=== PATIENT | male | born 1965 | race Caucasian/White ===

== ENCOUNTER 2016-11-15 10:53 | Observation (INO) | payer OTHER ==
[~2016-11-15] VITALS: Ht 177.8 cm; Wt 95.8 kg
[~2016-11-15 10:53] MED LIST: ASPCH81 PO; CINA0.42 PO; DOCU-94 PO; METO50TA16 PO; MULT-506 PO; SEVE800T7 PO
[2016-11-15] MEDS ORDERED: TPRSR/100 PO (11:00)
[2016-11-15] MEDS ORDERED: ASPIRIN 324 MG CHEW PO STA (11:23)
[2016-11-15] MEDS ORDERED: ASPI81TA28 PO (11:25)
[2016-11-15] MEDS ORDERED: METO50TA16 PO (11:43)
[2016-11-15 11:44] LABS: BASO % 0.4 %; BASO ABS # 0.01 K/uL (0-0.2); COMPLETE YES; EOS % 3.7 %; HEMATOCRIT 32.6 % (42-52); LYMPH % 22.8 %; LYMPH ABS # 0.56 K/uL (1.2-3.4); MEAN CELL VOLUME 85.8 fL (80-100); MEAN CORPUSCULAR HEMOGLOBIN 28.9 pg (25-34); MEAN CORPUSCULAR HGB CONC 33.7 g/dl (32-36); MEAN PLATELET VOLUME 8.8 fL (7.4-10.4); MONO % 10.2 %; NEUT % 62.9 %; PLATELET COUNT 124 K/uL (130-400); WHITE BLOOD COUNT 2.46 K/uL (4.8-10.8)
[2016-11-15 11:56] LABS: INR 1.1 (0.9-1.1); PARTIAL THROMBOPLASTIN RATIO 1.1; PROTHROMBIN TIME (PATIENT) 11.3 SECONDS (9.0-12.0)
[2016-11-15 12:11] LABS: ALB/GLOB RATIO 0.8 (0.9-2); BUN/CREATININE RATIO 2.4 (10-20); CALCIUM 8.8 mg/dl (8.5-10.1); CKMB/CK RATIO 0.9 (0-3.0); CREATININE 5.1 mg/dl (0.60-1.40); MAGNESIUM 2.2 mg/dl (1.8-2.4); POTASSIUM 3.4 mmol/L (3.5-5.1)
--- NOTE | 2016-11-15 12:13 | DIAGNOSTIC IMAGING REPORT ---
CHEST ONE VIEW PORTABLE CLINICAL HISTORY: Atypical chest pain and headache COMPARISON STUDY: January 06, 2012 FINDINGS: The heart is mildly enlarged. There is no overt failure. There is no focal pulmonary consolidation. There are no pleural effusions.[ IMPRESSION: Mild cardiomegaly. No evidence of focal pulmonary consolidation Electronically signed by: Shahab Ba M.D. 11/15/2016 12:12 PM Dictated Date/Time: 11/15/2016 12:11 PM
--- NOTE | 2016-11-15 12:28 | EMERGENCY ROOM VISIT NOTE ---
History First contact with patient: 11:03 Chief Complaint: CHEST PAIN Stated Complaint: CHEST DISCOMFORT/ HEADACHE Nursing Triage Summary: pt presents via [facility] with c/o headache and chest pain pt states he has had intermittent sharp pains in his chest that started around midnight pt states during his dialysis today, the pain became constant in his chest with a headache pt was given ntg and asa by the dialysis staff states he has had a headache most of the week also c/o recent diarrhea, nasal congestion, and cough History of Present Illness Patient is a 50-year-old white male with past medical history significant for hypertension, 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 Patient reports that he has been experiencing headaches and elevated blood pressure on and off for the last couple of weeks. Changes were made to his metoprolol dosing, but he has not started the new dose yet. He states that he has been feeling poorly all week with some nausea, diarrhea, cough and with exertion. Last night he noted a slight headache and some chest pain. He drove himself to dialysis this morning. Around 9:30, 90 minutes prior to arrival in the ED and with roughly 30 minutes left in his treatment, he developed a slight headache, midsternal chest pressure which then developed into pain that radiated into his left chest , jaw and arm. He states at its worst she would've rated the pain an 8/10. He noted some associated shortness of breath with the pain. He was given 1 nitroglycerin at his dialysis facility and place on oxygen, and his pain improved to a 3/10, which he continues to experience presently. Has never had a cardiac workup before. He denies any lightheadedness or dizziness presently. His weight has been stable. He denies any calf or leg pain or swelling. Review of Systems Review of systems as per HPI. All other systems reviewed were negative. 10 systems reviewed. Past Medical/Surgical History Medical Problems: (1) Chest pain (2) Diab Wendy Wo Compl, Type Ii Or Unspec Type, Not Uncntrld (3) Diverticulitis Colon (W/O Ment Of Hemorrhage) (4) Diverticulosis Colon (W/O Ment Of Hemorrhage) (5) Hematuria (6) HTN (hypertension) (7) Hx-Malig Skin Melanoma (8) Kidney disease (9) Kidney Transplant Failure (10) Left flank pain (11) Renal Dialysis Status (12) UTI (urinary tract infection) Surgical Problems: (1) H/O kidney transplant (2) History of bowel resection Electronic medical records are reviewed and summarized as above/below. See Problem List. Family History Diabetes mellitus FH: diabetes mellitus FH: heart disease Hypertension Kidney disease Social History Smoking Status: Never Smoker Marital Status: Housing Status: lives with significant other Occupation Status: employed Current/Historical Medications Scheduled Aspirin (Aspirin Ec), 81 MG PO DAILY Cinacalcet (Sensipar), 30 MG PO QPM Metoprolol Succinate (Metoprolol Succinate ER), 100 MG PO QPM Metoprolol Tartrate (Lopressor) (Lopressor), 50 MG PO DAILY Multivitamin (Multivitamin), 1 TAB PO QAM Sevelamer Carbonate (Renvela), 4 CAP PO TIDM Scheduled PRN Docusate Sodium (Colace), 100 MG PO BID PRN for Constipation Allergies Coded Allergies: Adhesives (Verified Allergy, Mild, 05/08/16) Aspirin (Verified Adverse Reaction, Mild, NOSE BLEED, 05/08/16) Physical Exam Vital Signs Date Time Temp Pulse Resp B/P Pulse Ox O2 Delivery O2 Flow Rate FiO2 11/15/16 14:26 72 20 177/94 100 Room Air 11/15/16 13:34 64 22 181/100 99 Room Air 11/15/16 13:18 56 11/15/16 12:45 96 Room Air 11/15/16 12:40 56 16 173/105 96 Room Air 11/15/16 11:09 52 11/15/16 11:04 99 Room Air 11/15/16 11:00 36.4 55 16 165/92 99 Room Air 11/15/16 11:00 98 Room Air Physical Exam CONSTITUTIONAL: Patient is a well-appearing 50-year-old white male who was awake and alert and in no apparent distress. Vital signs are stable. EYES: Pupils equal, round, reactive to light and accommodation. EOMs intact without nystagmus. Sclera are anicteric. ENT: Tympanic membranes intact, with normal landmarks. External canals are clear. Oral and nasopharynx are clear. Mucous membranes are moist, no lesions , tongue and gums appear normal. NECK: No bruits auscultated. Supple without lymphadenopathy. No thyromegaly. No meningeal signs. Full active range of motion without discomfort. CARDIOVASCULAR: Regular rate and rhythm, with normal S1 and S2, no murmur or gallop or rub is heard. No carotid bruits auscultated. No JVD. Peripheral pulses easy to palpable. RESPIRATORY: Breath sounds equal and clear to auscultation without wheezes, rales, or rhonchi heard. Full and equal chest expansion without accessory muscle use or retractions. GI: Multiple well-healed surgical scars are noted. Bowel sounds are present. Abdomen is soft, nontender, nondistended. MUSCULOSKELETAL: Full range of motion of extremities x 4 with good strength. No cyanosis, edema, joint tenderness or swelling. No deformity. INTEGUMENTARY: No lesions or rash, normal skin turgor. NEUROLOGICAL: Alert, oriented, and cooperative. Cranial nerves, sensation and strength grossly intact. Pupils round, equal, and react to light, EOMs are full. LYMPH: No lymphadenopathy. Medical Decision & Procedures ER Provider Diagnostic Interpretation: CHEST ONE VIEW PORTABLE CLINICAL HISTORY: Atypical chest pain and headache COMPARISON STUDY: January 06, 2012 FINDINGS: The heart is mildly enlarged. There is no overt failure. There is no focal pulmonary consolidation. There are no pleural effusions. IMPRESSION: Mild cardiomegaly. No evidence of focal pulmonary consolidation Laboratory Results 11/15/16 11:35 Red Blood Count 3.80, Mean Corpuscular Volume 85.8, Mean Corpuscular Hemoglobin 28.9, Mean Corpuscular Hemoglobin Concent 33.7, Mean Platelet Volume 8.8, Neutrophils (%) (Auto) 62.9, Lymphocytes (%) (Auto) 22.8, Monocytes (%) (Auto) 10.2, Eosinophils (%) (Auto) 3.7, Basophils (%) (Auto) 0.4, Neutrophils # (Auto ) 1.55, Lymphocytes # (Auto) 0.56, Monocytes # (Auto) 0.25, Eosinophils # (Auto ) 0.09, Basophils # (Auto) 0.01 11/15/16 11:35 Test 11/15/16 11:35 White Blood Count 2.46 K/uL (4.8-10.8) Red Blood Count 3.80 M/uL (4.7-6.1) Hemoglobin 11.0 g/dL (14.0-18.0) Hematocrit 32.6 % (42-52) Mean Corpuscular Volume 85.8 fL (80-100) Mean Corpuscular Hemoglobin 28.9 pg (25-34) Mean Corpuscular Hemoglobin Concent 33.7 g/dl (32-36) Platelet Count 124 K/uL (130-400) Mean Platelet Volume 8.8 fL (7.4-10.4) Neutrophils (%) (Auto) 62.9 % Lymphocytes (%) (Auto) 22.8 % Monocytes (%) (Auto) 10.2 % Eosinophils (%) (Auto) 3.7 % Basophils (%) (Auto) 0.4 % Neutrophils # (Auto) 1.55 K/uL (1.4-6.5) Lymphocytes # (Auto) 0.56 K/uL (1.2-3.4) Monocytes # (Auto) 0.25 K/uL (0.11-0.59) Eosinophils # (Auto) 0.09 K/uL (0-0.5) Basophils # (Auto) 0.01 K/uL (0-0.2) RDW Standard Deviation 41.4 fL (36.4-46.3) RDW Coefficient of Variation 13.3 % (11.5-14.5) Immature Granulocyte % (Auto) 0.0 % Immature Granulocyte # (Auto) 0.00 K/uL (0.00-0.02) Prothrombin Time 11.3 SECONDS (9.0-12.0) Prothromb Time International Ratio 1.1 (0.9-1.1) Activated Partial Thromboplast Time 28.3 SECONDS (21.0-31.0) Partial Thromboplastin Ratio 1.1 Anion Gap 10.0 mmol/L (3-11) Est Creatinine Clear Calc Drug Dose 20.1 ml/min Estimated GFR () 13.9 Estimated GFR (Non- 12.0 BUN/Creatinine Ratio 2.4 (10-20) Calcium Level 8.8 mg/dl (8.5-10.1) Magnesium Level 2.2 mg/dl (1.8-2.4) Total Bilirubin 0.9 mg/dl (0.2-1) Aspartate Amino Transf (AST/SGOT) 17 U/L (15-37) Alanine Aminotransferase (ALT/SGPT) 8 U/L (12-78) Alkaline Phosphatase 326 U/L (45-117) Total Creatine Kinase 88 U/L (39-308) Creatine Kinase MB 0.8 ng/ml (0.5-3.6) Creatine Kinase MB Ratio 0.9 (0-3.0) Total Protein 7.8 gm/dl (6.4-8.2) Albumin 3.5 gm/dl (3.4-5.0) Globulin 4.3 gm/dl (2.5-4.0) Albumin/Globulin Ratio 0.8 (0.9-2) Medications Administered Medications (Trade) Dose Ordered Sig/Willy Route Start Time Stop Time Status Last Admin Dose Admin Aspirin (Aspirin Chew) 324 mg NOW STAT PO 11/15/16 11:23 11/15/16 11:26 DC 11/15/16 12:02 324 MG Hydralazine HCl (HydrALAZINE INJ) 10 mg Q6H PRN IV. 11/15/16 13:45 12/15/16 13:44 11/15/16 17:21 10 MG Hydralazine HCl (HydrALAZINE INJ) 10 mg NOW STAT IV. 11/15/16 13:40 11/15/16 13:47 DC 11/15/16 14:11 10 MG Acetaminophen (Tylenol Tab) 650 mg Q4H PRN PO 11/15/16 14:45 12/15/16 14:44 11/15/16 17:21 650 MG ECG Indication: chest pain Rate (beats per minute): 52 Rhythm: sinus bradycardia Findings: 1st degree AV block, no acute ischemic change Change: no significant change ED Course The patient was seen and evaluated as above. Old records were reviewed. IV access was obtained, laboratory studies were collected, EKG was performed and the patient was placed on the bobbin winder tender and observed during his emergency department stay. He was given aspirin 324 mg chewable. He declined any additional medication for discomfort. EKG demonstrated a sinus bradycardia at 52 beats per minute with a first-degree AV block. There is no evidence for acute ischemic changes. Chest x-ray demonstrated cardiomegaly, no evidence for failure or consolidation. Laboratory studies noted a white count of 2400, H&H 11 and 32, platelet count 124,000. Anemia appears stable for the patient. Platelet count is slightly lower than prior. Coags are normal. Electrolytes sodium 136, potassium 3.4, chloride 94, carbon dioxide 32, BUN 12 and creatinine 5.1, which patient reports is around his baseline. Magnesium 2.2. He has slight elevation of his alkaline phosphatase at 326, otherwise remaining liver functions are normal. CK and CK-MB are negative 1. [id number] troponin is 0.02. All laboratory and diagnostic imaging studies were reviewed with attending physician, and discussed with the patient. He is comfortable at the present time. He was noted to be slightly hypertensive and bradycardic throughout his stay. He reports that he did not take his metoprolol today as he normally takes this after dialysis. His workup is not indicative of ischemic process at this time, however given his presentation and his comorbidities, it was felt that further care and evaluation in the hospital for chest pain workup was necessary. Patient was [place] [facility] [place] [facility] for further care and management. Medical Decision Differential diagnosis includes acute myocardial infarction, acute coronary syndrome, myocarditis, pericarditis, pericardial effusions /tamponade, pulmonary embolism, pneumonia, pneumothorax, cardiomyopathy, congestive heart failure, anemia, COPD/asthma exacerbation, musculoskeletal, anxiety, costochondritis, among others. Impression Primary Impression: Substernal precordial chest pain Departure Information Referrals Yoav Hayward M.D. (PCP) Patient Instructions My [facility]
--- NOTE | 2016-11-15 12:37 | EMERGENCY ROOM VISIT NOTE ---
ED Visit Note First contact with patient: 11:03 Patient evaluated with physician medical lab assistant. 50-year-old percentage emergency room for chest pain which is presently resolved. EKG reviewed within normal limits. Troponin negative. Case has been discussed with Dr. Leon for admission. Agree with management and plan. Patient has no concerns on my examination at 12:35 PM
[2016-11-15 12:45] VITALS: O2SAT 96; BMI 31.5
[2016-11-15] MEDS ORDERED: HydrALAZINE HCL 20 MG/ML VIAL IV. STA (13:40)
[2016-11-15] MEDS ORDERED: HydrALAZINE HCL 20 MG/ML VIAL IV. PRN (13:45)
[2016-11-15] MEDS ORDERED: ONDANSETRON INJ 2 MG/ML 2 ML VIAL IV PRN (14:45)
[2016-11-15] MEDS ORDERED: DOCUSATE SODIUM 100 MG CAP PO PRN (14:45)
[2016-11-15] MEDS ORDERED: NITROGLYCERIN OINT 2% 1GM PACKET EXT ONE (15:00)
[2016-11-15] MEDS ORDERED: IV FLUIDS COMPLETED PRN (15:00)
--- NOTE | 2016-11-15 15:12 | History and Physical ---
History & Physical Date & Time of Service: Nov 15, 2016 at 14:54 Chief Complaint: Chest Discomfort/ Headache Primary Care Physician: Yoav Hayward M.D. History of Present Illness Source: patient, clinic records, hospital records This patient is a 50-year-old male that presents emergency department with complaints of midsternal chest pain radiating to the left side of his face and jaw that started during dialysis today. The patient has a history of end-stage renal disease, failed renal transplant 2007. He is typically dialyzed Friday, Friday and Friday. The patient completed all but a half-hour of the dialysis when the pain started. He denies any diaphoresis. No shortness of breath at the time. No dizziness. No heart palpitations. The patient denies any history of coronary artery disease. He has had a normal stress test, but that was many years ago. Initial workup in the emergency department shows a negative troponin. EKG shows sinus bradycardia with a first-degree AV block. No acute signs of ischemia. The patient was noted to be hypertensive. He admits that this is been going on for the last few weeks. His dose of metoprolol was recently increased, but he has not yet picked up the prescription. The patient does say that he has not been feeling well all week. He had a few episodes of vomiting and diarrhea a few days back. He is still having diarrhea , however the nausea and vomiting has resolved. He denies any abdominal pain. No sick contacts. No recent travel. He does admit to feeling on and off hot and cold with mild body aches. This is been also going on for approximately 1 week. He has a mild cough, however this is chronic. Apparently, the patient does have a history of chronic diarrhea. Past Medical/Surgical History Medical Problems: (1) Diab Wendy Wo Compl, Type Ii Or Unspec Type, Not Uncntrld Status: Chronic (2) Diverticulitis Colon (W/O Ment Of Hemorrhage) Status: Resolved (3) Diverticulosis Colon (W/O Ment Of Hemorrhage) Status: Chronic (4) Hematuria Status: Resolved (5) HTN (hypertension) Status: Chronic (6) Hx-Malig Skin Melanoma Status: Chronic (7) Kidney disease Status: Chronic (8) Kidney Transplant Failure Status: Chronic (9) Left flank pain Status: Resolved (10) Renal Dialysis Status Status: Chronic (11) UTI (urinary tract infection) Status: Resolved Surgical Problems: (1) H/O kidney transplant Status: Chronic (2) History of bowel resection Status: Resolved Family History Diabetes mellitus FH: diabetes mellitus FH: heart disease Hypertension Kidney disease Father and mother both of heart disease, [place] in their 60s Social History Smoking Status: Never Smoker Alcohol Use: none Marital Status: Housing status: lives with family Occupational Status: employed Immunizations History of Influenza Vaccine: N/A Influenza Vaccine Date: Sep 03, 2006 History of Tetanus Vaccine?: No History of Pneumococcal: Unknown Pneumococcal Date: March 03, 2005 History of Hepatitis B Vaccine: No Hepatitis Immunization Date: March 03, 2006 Multi-Drug Resistant Organisms History of MDRO: No Allergies Coded Allergies: Adhesives (Verified Allergy, Mild, 05/08/16) Aspirin (Verified Adverse Reaction, Mild, NOSE BLEED, 05/08/16) Home Medications Scheduled Aspirin (Aspirin Ec), 81 MG PO DAILY Cinacalcet (Sensipar), 30 MG PO QPM Metoprolol Succinate (Metoprolol Succinate ER), 100 MG PO QPM Metoprolol Tartrate (Lopressor) (Lopressor), 50 MG PO DAILY Multivitamin (Multivitamin), 1 TAB PO QAM Sevelamer Carbonate (Renvela), 4 CAP PO TIDM Scheduled PRN Docusate Sodium (Colace), 100 MG PO BID PRN for Constipation Review of Systems 10 system review performed and negative unless noted in HPI or below Physical Exam Vital Signs Date Time Temp Pulse Resp B/P Pulse Ox O2 Delivery O2 Flow Rate FiO2 11/15/16 14:26 72 20 177/94 100 Room Air 11/15/16 13:34 64 22 181/100 99 Room Air 11/15/16 13:18 56 11/15/16 12:45 96 Room Air 11/15/16 12:40 56 16 173/105 96 Room Air 11/15/16 11:09 52 11/15/16 11:04 99 Room Air 11/15/16 11:00 36.4 55 16 165/92 99 Room Air 11/15/16 11:00 98 Room Air General Appearance: no apparent distress Head: normocephalic Eyes: EOMI Neck: no JVD Respiratory/Chest: lungs clear Cardiovascular: regular rate, rhythm, + pertinent finding (systolic murmur noted) Abdomen/GI: normal bowel sounds, non tender, soft, + pertinent finding (many abdominal scar is noted) Extremities/Musculoskelatal: no calf tenderness, no pedal edema Neurologic/Psych: no motor/sensory deficits, oriented x 3 Skin: warm/dry Diagnostics Laboratory Results Results Past 24 Hours Test 11/15/16 11:23 11/15/16 11:35 11/15/16 11:41 Range/Units Creatine Kinase MB Ratio 0.9 0-3.0 White Blood Count 2.46 4.8-10.8 K/uL Red Blood Count 3.80 4.7-6.1 M/uL Hemoglobin 11.0 14.0-18.0 g/dL Hematocrit 32.6 42-52 % Mean Corpuscular Volume 85.8 80-100 fL Mean Corpuscular Hemoglobin 28.9 25-34 pg Mean Corpuscular Hemoglobin Concent 33.7 32-36 g/dl Platelet Count 124 130-400 K/uL Mean Platelet Volume 8.8 7.4-10.4 fL Neutrophils (%) (Auto) 62.9 % Lymphocytes (%) (Auto) 22.8 % Monocytes (%) (Auto) 10.2 % Eosinophils (%) (Auto) 3.7 % Basophils (%) (Auto) 0.4 % Neutrophils # (Auto) 1.55 1.4-6.5 K/uL Lymphocytes # (Auto) 0.56 1.2-3.4 K/uL Monocytes # (Auto) 0.25 0.11-0.59 K/uL Eosinophils # (Auto) 0.09 0-0.5 K/uL Basophils # (Auto) 0.01 0-0.2 K/uL RDW Standard Deviation 41.4 36.4-46.3 fL RDW Coefficient of Variation 13.3 11.5-14.5 % Immature Granulocyte % (Auto) 0.0 % Immature Granulocyte # (Auto) 0.00 0.00-0.02 K/uL Prothrombin Time 11.3 9.0-12.0 SECONDS Prothromb Time International Ratio 1.1 0.9-1.1 Activated Partial Thromboplast Time 28.3 21.0-31.0 SECONDS Partial Thromboplastin Ratio 1.1 Sodium Level 136 136-145 mmol/L Potassium Level 3.4 3.5-5.1 mmol/L Chloride Level 94 98-107 mmol/L Carbon Dioxide Level 32 21-32 mmol/L Anion Gap 10.0 3-11 mmol/L Blood Urea Nitrogen 12 7-18 mg/dl Creatinine 5.10 0.60-1.40 mg/dl Est Creatinine Clear Calc Drug Dose 20.1 ml/min Estimated GFR () 13.9 Estimated GFR (Non- 12.0 BUN/Creatinine Ratio 2.4 10-20 Random Glucose 75 70-99 mg/dl Calcium Level 8.8 8.5-10.1 mg/dl Magnesium Level 2.2 1.8-2.4 mg/dl Total Bilirubin 0.9 0.2-1 mg/dl Aspartate Amino Transf (AST/SGOT) 17 15-37 U/L Alanine Aminotransferase (ALT/SGPT) 8 12-78 U/L Alkaline Phosphatase 326 45-117 U/L Total Creatine Kinase 88 39-308 U/L Creatine Kinase MB 0.8 0.5-3.6 ng/ml Total Protein 7.8 6.4-8.2 gm/dl Albumin 3.5 3.4-5.0 gm/dl Globulin 4.3 2.5-4.0 gm/dl Albumin/Globulin Ratio 0.8 0.9-2 Bedside Troponin I 0.020 0-0.045 ng/ml Diagnostic Radiology CHEST ONE VIEW PORTABLE CLINICAL HISTORY: Atypical chest pain and headache COMPARISON STUDY: January 06, 2012 FINDINGS: The heart is mildly enlarged. There is no overt failure. There is no focal pulmonary consolidation. There are no pleural effusions.[ IMPRESSION: Mild cardiomegaly. No evidence of focal pulmonary consolidation Electronically signed by: Shahab Ba M.D. EKG Sinus bradycardia with first-degree AV block. Rate 52 bpm. No ischemic changes noted. Repeat EKG at 1446 shows normal sinus rhythm with first-degree AV block. Rate 65 bpm. No ischemic changes noted Impression Assessment and Plan 50-year-old male with a past medical history of end-stage renal disease status post failure of the kidney transplant secondary to noncompliance, diabetes, hypertension. Presented to the ED with chest pain during dialysis. Found to be significantly hypertensive in the emergency department, otherwise workup was fairly unremarkable chest pain -observe in telemetry -follow cardiac enzymes every 8 hr x 2 -daily EKG -EKG with worsening pain -continue ASA -Apply Nitropaste -Check stress echo -Repeat troponin now Hypertensive urgency-BP improved after 1 dose of hydralazine -Continue metoprolol XL 100 mg HS-this is the dose the patient is supposed to be taking according to outpatient pharmacy records -Hydralazine 10 mg IV q 6 hr PRN -BP likely will improve with nitropaste End-stage renal disease-continue with dialysis Friday, Friday, Friday -Since patient pretty much completed his HD today, we will hold off on consulting nephrology -Continue Sensipar 60 mg daily -Continue PhosLo 2001 mg 3 times daily with meals diabetes mellitus-blood sugar stable. -Continue glipizide 2.5 mg daily -follow BSGs AC, HS and with meals -insulin sliding scale -Of note, the patient says that his glucometer broke and he has not been checking his sugars. -check HgbA1C DVT prophylaxis -If the patient is not discharged today or tomorrow, consider anticoagulation -TEDS, SCDs CODE STATUS -LEVEL I FULL CODE PA Physician Supervision Note: I interviewed and examined the patient. Discussed with Tara BRAXTON and agree with findings and plan as documented in the note. Any exceptions or clarifications are listed here: None Pt with hypertensive urgency, chest pain relieved with nitro. Has been having some increased MARTE despite being at or below dry weight for last week or so, completed HD today vitals show markedly htn, bradycardia car is bradycardic, shanika lungs are clear ext are with edema trace asses, Chest pain, maybe cardiac given risk factors. need to control blood pressure may need stress or even consider more aggressive risk stratification diabetic diet and ssi Documented By: Yuniel Gomez Level of Care Telemetry Advanced Directives Existing Living Will: No Existing Power of Nurse Office: No Resuscitation Status FULL RESUSCITATION VTE Prophylaxis VTE Risk Assessment Done? Y/N: Yes Risk Level: Low Given or contraindicated: Alfonzo Stockings, SCD's
[2016-11-15] MEDS ORDERED: DEXTROSE 50% 50 ML SYR IV PRN (15:30)
[2016-11-15] MEDS ORDERED: GLUCAGON FOR INJ 1 MG VIAL SQ PRN (15:30)
[2016-11-15] MEDS ORDERED: GLUCOSE 40% GEL 15 GM TUBE PO PRN (15:30)
[2016-11-15] MEDS ORDERED: GLUCOSE 10 TABS/TUBE PO PRN (15:30)
[2016-11-15] MEDS: INSULIN ASPART 100 UNITS/ML 3 ML PEN SC SCH ×2 (16:00→20:19)
[2016-11-15 17:10] VITALS: BP 205/110; PULSE 60; TEMP 36.4; O2SAT 96
[2016-11-15] MEDS: ACETAMINOPHEN 325 MG TAB PO PRN (17:21)
[2016-11-15] MEDS ORDERED: LORAZEPAM 2 MG/ML 1 ML VIAL IV PRN ×2 (17:30)
[2016-11-15] MEDS ORDERED: LORAZEPAM 0.5 MG TAB PO PRN (17:30)
[2016-11-15] MEDS ORDERED: MoRPHine SULFATE 4 MG/ML 1 ML CARP\\VIAL IV PRN (17:30)
[2016-11-15] MEDS ORDERED: MoRPHine SULFATE 2 MG/ML CARP IV PRN (17:30)
[2016-11-15] MEDS ORDERED: METOPROLOL TARTRATE 1 MG/ML VIAL IV PRN (17:30)
[2016-11-15] MEDS ORDERED: LISINOPRIL 5 MG TAB PO ONE (17:45)
[2016-11-15] MEDS: CALCIUM ACETATE 667MG GELCAP PO SCH (17:50)
[2016-11-15 17:51] VITALS: BP 179/88
[2016-11-15 19:30] VITALS: BP 144/71; PULSE 82; TEMP 36.6; O2SAT 96
[2016-11-15] MEDS: CINACALCET 30 MG TAB PO SCH (20:20)
[2016-11-15] MEDS: CAPTOPRIL 25 MG TAB PO SCH (20:21)
[2016-11-15] MEDS ORDERED: METOPROLOL SUCC 50MG EXT REL TAB PO SCH (21:00)
[2016-11-15 22:00] VITALS: BP 148/80; PULSE 72
[2016-11-15] MEDS: METOPROLOL TARTRATE 25 MG TAB PO SCH (22:00)
[2016-11-15] MEDS ORDERED: METOPROLOL TARTRATE 50 MG TAB PO SCH (22:00)
[2016-11-15 22:51] LABS: CKMB/CK RATIO 1.5 (0-3.0)
[2016-11-15 23:50] VITALS: BP 137/86; PULSE 57; TEMP 36.9; O2SAT 94
[2016-11-16] VITALS (19 sets, daily range): BP systolic 139–165; BP diastolic 80–97; PULSE 51–66; TEMP 36.6–37; O2SAT 94–97
--- NOTE | 2016-11-16 04:32 | NEPHROLOGY CONSULTATION ---
DATE OF CONSULTATION: 11/15/2016 PROBLEM LIST: 1. End-stage renal disease. 2. History of malignancy, midback (pathology unspecified). 3. History of depression. 4. Hypercholesterolemia. 5. Diverticulosis with history of perforation. 6. Hypertension. SUBJECTIVE: Mr. Levy is a 50-year-old white male, well known to me. He was referred down from the [facility] after developing chest pain toward the end of his hemodialysis treatment today. His chest pain has now resolved. Mr. Levy has a history of known chronic renal insufficiency, dating back to about the year 1999 and likely, much further. At the time he was recognized as having chronic renal disease, his renal function was significantly reduced and a renal biopsy was not done, although it was presumed that he had chronic glomerulonephritis. He was hypertensive at the time of diagnosis. His blood pressure was well controlled, but his renal function slowly deteriorated. He developed uremic symptomatology and despite conservative efforts, had to start dialysis in 2004. For the most part, his dialysis was uncomplicated. However, in August of 2005, he developed an episode of abdominal pain and was felt to have acute diverticulitis. He was treated with antibiotics, with improvement. In February of 2007, he once again developed symptoms of diverticulitis. At that time, he was found to have a perforated diverticulum with abscess formation. The abscess was drained here by Dr. Jacob Martinez and a colostomy was done. He did remarkably well after his surgery and his colostomy was taken down in 2006. In 2007, he received a cadaver transplant at the [facility]. He did remarkably well. He was faithful with keeping most of his appointments, at least for the first several years after getting his transplant. However, because of financial issues, he became more lax in followup visits as well as getting laboratory work done. In January of 2016, he presented with symptoms of uremia and volume overload. At that time, he admitted that he was not taking his immunosuppressive medications, predominantly for financial reasons. He was given a course of higher dose steroids and immunosuppressant drugs were resumed. Nevertheless, he never regained renal function and was started again on maintenance dialysis. He has been reasonably stable on maintenance dialysis and is currently dialyzed at the [place] [facility]. For the most part, his dialysis treatments have been uncomplicated, at least until lately. Over the course of the past several months, it has been apparent that he has not been totally compliant with his medication program. Although he said he was taking his medications, the pharmacy that his medications were called into said that he had not picked them up. He was to have been on metoprolol tartrate on a regular basis. He said he was taking the medications, although that was not confirmed by the dialysis staff when they checked with his drugstore. More recently, we felt that it might be easier for him to be on metoprolol succinate than metoprolol tartrate. That prescription was called in, but the patient said that the prescription was not ready and he continued to take his old medications, which we had documented that he, apparently, did not fill. For the past 2 weeks, he has not felt particularly well. According to his , he has been somewhat lethargic and has been sleeping quite a bit. He had no focal neurologic symptoms or complaints. His blood pressure was higher when he reported for dialysis treatments. His said that he was not eating well. Beginning Friday of this week (November 11), he developed gastrointestinal symptoms of nausea, worsening of his appetite, as well as diarrhea. He was not eating much. His dry weight was not changed in the dialysis unit because he did not report the symptoms. He felt that he is somewhat below his dry weight at the current time. Nonetheless, his blood pressure has been elevated with systolic blood pressures as high as 200 and diastolic blood pressures in the range of 100-110. Today, his blood pressure remained elevated and late in his dialysis treatment, he developed chest discomfort. He points to the site of onset of his discomfort more in the mid-epigastrium and said that it radiated substernally to the left side of his neck and left shoulder. He had no associated nausea or vomiting. He denied diaphoresis. He was not experiencing any worsening shortness of breath associated with his symptoms, but his says that he has been dyspneic with exertion at home, particularly when going up or down steps. Nonetheless, he was referred to the Emergency Room from the dialysis unit. There, he appeared to be stable, but his blood pressure was quite high. Admission was advised to rule out an acute myocardial infarction. CURRENT PRESCRIBED MEDICATIONS: Aspirin 81 mg daily, Sensipar 30 mg daily, docusate sodium 100 mg twice a day, metoprolol succinate 100 mg daily (previously metoprolol tartrate 50 mg twice daily), and a multivitamin a day. He also was supposed to be taking Renvela 800 mg, 4 with each meal. ALLERGIES: AADHESIVES AND ASPIRIN. The remainder of his past medical history, family history, social history and review of systems is outlined on his admission note and will not be repeated. However, of note is the fact that he has a strong family history of heart disease with both parents dying in their mid 60s. OBJECTIVE: GENERAL: On physical exam, when seen by me, Mr. Levy was lying quietly in his room. He did not appear to be in any distress. VITAL SIGNS: His blood pressure was 179/88. His pulse was 65 and regular, respiratory rate was 18, his pulse ox 98% on room air. He is afebrile. SKIN: Shows essentially normal skin turgor. He has a right lower quadrant scar from his kidney transplant. He has a left upper arm AV fistula, which is functioning remarkably well. He has a large scar on the mid-back over the lower thoracic and upper lumbar vertebrae from the removal of a cutaneous malignancy years ago. He has other scars on his abdomen from his surgery for diverticular disease, a colostomy and its takedown. There is no rash or infiltrative skin disease. LYMPHATICS: Show no palpable lymphadenopathy. HEAD: Grossly normal. EYES: Normal, although the ocular fundi were not examined today. EARS, NOSE, MOUTH AND THROAT: All unremarkable. His oral mucous membranes appear moist. NECK: Supple. I see no obvious jugular venous distention. There is no carotid bruit and no obvious thyromegaly. CHEST: Clear to auscultation. I hear no wheezes, rales or rhonchi. CARDIAC: Shows a regular rhythm. S1 and S2 are normal. He has a soft systolic murmur at the base radiating toward the neck. Additionally, he has a continuous murmur radiating into his chest from his left upper arm AV fistula. Occluding that fistula decreases that murmur significantly. ABDOMEN: Somewhat obese. It is nontender. There is no organomegaly or mass and bowel sounds are normal. EXTREMITIES: Show no cyanosis, clubbing or edema. He has a left upper arm AV fistula that functions well. NEUROLOGIC: Shows no lateralizing changes. PERTINENT LABORATORY WORK: From today, shows a white count of 2460 with a normal differential. His hemoglobin is 11.0 with a hematocrit of 32.6. His platelet count is 124,000. His prothrombin time is 11.3 with an INR of 1.1. His PTT is 28.3 with a PTTR of 1.1. Clinical chemistries show a sodium of 136 mmol/L, potassium of 3.4 mmol/L, chloride of 94 mmol/L, and CO2 content of 32 mmol/L. The laboratory work was drawn shortly after the completion of his dialysis treatment. His BUN was 12 and his creatinine 5.10. His random blood sugar was 75. His serum calcium is 8.8 mg/dL. His magnesium 2.2 mg/dL. His AST is 17 and his ALT 8. His alkaline phosphatase is 326. His total CK is 88. His CK-MB is 0.8. His total protein is 7.8. His albumin 3.5 and globulins are 4.3. Imaging studies done today include a chest x-ray, which shows cardiomegaly, but no obvious evidence of congestive heart failure. ASSESSMENT: Mr. Levy has a history of end-stage renal disease, presumably secondary to chronic glomerulonephritis. He had a transplanted kidney for about 8 years, but lost it because of noncompliance with his immunosuppressive drugs. He has been back on dialysis since about January of 2016. On dialysis, there is some evidence that he has been poorly compliant with his medications. Recently, he has become increasingly fatigued and apparently, somewhat lethargic at home. He has not been eating well. His blood pressure has been rising. Again, there is evidence of noncompliance with him taking his metoprolol tartrate and subsequent metoprolol succinate because his pharmacist, to whom the prescriptions were called, says that he never picked them up. Nevertheless, for now, his blood pressure is significantly elevated and that may be due to a drop in his dry weight not compensated for with his dialysis treatments. RECOMMENDATIONS: Tomorrow, we will dialyze him and try to reduce his dry weight. I would check a plasma renin, since occasionally, patients with end-stage renal disease, will have significant problems with hypertension associated with marked elevations of plasma renin. That would direct therapy toward the use of angiotensin receptor blockers or ROSEANN inhibitors. Would start him on captopril 25 mg b.i.d. Would prefer to use that as opposed to long-acting ROSEANN inhibitor, in case we need to quickly reverse its effect. Would also keep him on metoprolol tartrate 50 mg b.i.d. We will continue his other regular outpatient medications, as prescribed. Dialysis orders have been written. Dr. Neo Loomis will be rounding for [facility] nephrology tomorrow. He is aware of Mr. Levy being here and will follow him this weekend. We would continue to pursue a routine rule out for coronary disease.
[2016-11-16] MEDS: METOPROLOL TARTRATE 25 MG TAB PO SCH ×3 (05:57→20:59)
[2016-11-16] MEDS ORDERED: SODIUM CHLORIDE 0.9% 1000ML 1,000 ML IV PRN (06:00)
[2016-11-16] MEDS ORDERED: HEPARIN SOD (PORCINE) 1000 UNIT/ML 10 ML VIAL IV SCH ×2 (06:00)
[2016-11-16] MEDS: INSULIN ASPART 100 UNITS/ML 3 ML PEN SC SCH ×4 (07:00→20:59)
[2016-11-16 07:02] LABS: BLOOD UREA NITROGEN 27 mg/dl (7-18); BUN/CREATININE RATIO 3.4 (10-20); CALCIUM 7.6 mg/dl (8.5-10.1); CARBON DIOXIDE 32 mmol/L (21-32); CHLORIDE 94 mmol/L (98-107); CKMB/CK RATIO 1.1 (0-3.0); GLUCOSE 84 mg/dl (70-99); SODIUM 136 mmol/L (136-145)
[2016-11-16] MEDS: ACETAMINOPHEN 325 MG TAB PO PRN (07:16)
[2016-11-16] MEDS: CAPTOPRIL 25 MG TAB PO SCH ×2 (07:17→20:59)
[2016-11-16] MEDS: MULTIVITAMIN TAB PO SCH (07:18)
[2016-11-16] MEDS: ASPIRIN 81 MG ECTAB PO SCH (07:18)
[2016-11-16] MEDS: CALCIUM ACETATE 667MG GELCAP PO SCH ×3 (07:19→16:39)
[2016-11-16] MEDS ORDERED: LISINOPRIL 5 MG TAB PO SCH (09:00)
[2016-11-16] MEDS ORDERED: METOPROLOL TARTRATE 50 MG TAB PO SCH (09:00)
[2016-11-16 09:30] LABS: HEPATITIS B AB POS
[2016-11-16 10:28] LABS: URINE APPEARANCE CLEAR (CLEAR); URINE BILIRUBIN NEG (NEG); URINE COLOR YELLOW; URINE NITRITE NEG (NEG); URINE PH >= 9.0 (4.5-7.5); URINE SPECIFIC GRAVITY 1.005 (1.000-1.030); UROBILINOGEN NEG (NEG)
[2016-11-16 10:32] LABS: MANUAL MICROSCOPIC REQUIRED? NO; REVIEW REQ? NO
[2016-11-16 10:33] LABS: SULFASALICYLIC ACID POS (NEG)
--- NOTE | 2016-11-16 11:11 | Dialysis Progress Note ---
Hemodialysis Note Date of Service Nov 16, 2016. Chief Complaint ESRD on HD Subjective No acute events overnight. Blood pressure improved. Mild headache this morning. Denies shortness of breath. No chest pain. Seen and evaluated during hemodialysis. Unfortunately tap water temperature was too high for a period this morning and machine needed to be reset. Water temperature seems to have adjusted appropriately. Review of Systems A complete review of systems was performed. Pertinent positives are noted above. All other systems are negative. Vital Signs Last 8 Hrs Date Time Temp Pulse Resp B/P Pulse Ox O2 Delivery O2 Flow Rate FiO2 11/16/16 08:00 Room Air 11/16/16 07:18 36.6 60 18 149/81 96 Room Air 11/16/16 04:57 Room Air 11/16/16 04:39 36.9 60 18 145/88 97 Room Air I & O 24-Hour Column 11/16/16 08:00 Intake Total 500 ml Output Total 50 ml Balance 450 ml Last Recorded Weight Weight (Kilograms): 99.100 Physical Exam General Appearance: WD/WN, no apparent distress Head: normocephalic, atraumatic Eyes: normal inspection, sclerae normal ENT: normal ENT inspection, pharynx normal Neck: supple, + JVD Respiratory/Chest: lungs clear, no respiratory distress, no accessory muscle use Cardiovascular: regular rate, rhythm, + systolic murmur Back: normal inspection Abdomen/GI: non tender, soft Extremities/Musculoskelatal: normal inspection, no pedal edema, + pertinent finding (LUE AVF with thrill and bruit) Neurologic/Psych: alert, oriented x 3 Social History Smoking Status: Never smoker Alcohol Use: none Marital Status: Housing Status: lives with family Occupation: employed Laboratory Results Past 24 Hours 11/15/16 11:35 Red Blood Count 3.80, Mean Corpuscular Volume 85.8, Mean Corpuscular Hemoglobin 28.9, Mean Corpuscular Hemoglobin Concent 33.7, Mean Platelet Volume 8.8, Neutrophils (%) (Auto) 62.9, Lymphocytes (%) (Auto) 22.8, Monocytes (%) (Auto) 10.2, Eosinophils (%) (Auto) 3.7, Basophils (%) (Auto) 0.4, Neutrophils # (Auto ) 1.55, Lymphocytes # (Auto) 0.56, Monocytes # (Auto) 0.25, Eosinophils # (Auto ) 0.09, Basophils # (Auto) 0.01 11/15/16 11:35 11/16/16 05:23 Test 11/15/16 11:23 11/15/16 11:35 11/15/16 11:41 11/15/16 14:55 Creatine Kinase MB Ratio (0-3.0) 0.9 (0-3.0) White Blood Count 2.46 K/uL (4.8-10.8) Red Blood Count 3.80 M/uL (4.7-6.1) Hemoglobin 11.0 g/dL (14.0-18.0) Hematocrit 32.6 % (42-52) Mean Corpuscular Volume 85.8 fL (80-100) Mean Corpuscular Hemoglobin 28.9 pg (25-34) Mean Corpuscular Hemoglobin Concent 33.7 g/dl (32-36) Platelet Count 124 K/uL (130-400) Mean Platelet Volume 8.8 fL (7.4-10.4) Neutrophils (%) (Auto) 62.9 % Lymphocytes (%) (Auto) 22.8 % Monocytes (%) (Auto) 10.2 % Eosinophils (%) (Auto) 3.7 % Basophils (%) (Auto) 0.4 % Neutrophils # (Auto) 1.55 K/uL (1.4-6.5) Lymphocytes # (Auto) 0.56 K/uL (1.2-3.4) Monocytes # (Auto) 0.25 K/uL (0.11-0.59) Eosinophils # (Auto) 0.09 K/uL (0-0.5) Basophils # (Auto) 0.01 K/uL (0-0.2) RDW Standard Deviation 41.4 fL (36.4-46.3) RDW Coefficient of Variation 13.3 % (11.5-14.5) Immature Granulocyte % (Auto) 0.0 % Immature Granulocyte # (Auto) 0.00 K/uL (0.00-0.02) Prothrombin Time 11.3 SECONDS (9.0-12.0) Prothromb Time International Ratio 1.1 (0.9-1.1) Activated Partial Thromboplast Time 28.3 SECONDS (21.0-31.0) Partial Thromboplastin Ratio 1.1 Anion Gap 10.0 mmol/L (3-11) Est Creatinine Clear Calc Drug Dose 20.1 ml/min Estimated GFR () 13.9 Estimated GFR (Non- 12.0 BUN/Creatinine Ratio 2.4 (10-20) Calcium Level 8.8 mg/dl (8.5-10.1) Magnesium Level 2.2 mg/dl (1.8-2.4) Total Bilirubin 0.9 mg/dl (0.2-1) Aspartate Amino Transf (AST/SGOT) 17 U/L (15-37) Alanine Aminotransferase (ALT/SGPT) 8 U/L (12-78) Alkaline Phosphatase 326 U/L (45-117) Total Creatine Kinase 88 U/L (39-308) Creatine Kinase MB 0.8 ng/ml (0.5-3.6) Total Protein 7.8 gm/dl (6.4-8.2) Albumin 3.5 gm/dl (3.4-5.0) Globulin 4.3 gm/dl (2.5-4.0) Albumin/Globulin Ratio 0.8 (0.9-2) Bedside Troponin I 0.020 ng/ml (0-0.045) 0.010 ng/ml (0-0.045) Test 11/15/16 17:19 11/15/16 20:17 11/15/16 20:26 11/16/16 02:41 Bedside Glucose 70 mg/dl (70-99) 145 mg/dl (70-99) Total Creatine Kinase 72 U/L (39-308) Creatine Kinase MB 1.1 ng/ml (0.5-3.6) Creatine Kinase MB Ratio 1.5 (0-3.0) Troponin I < 0.015 ng/ml (0-0.045) Urine Color YELLOW Urine Appearance CLEAR (CLEAR) Urine pH >= 9.0 (4.5-7.5) Urine Specific [place] 1.005 (1.000-1.030) Urine Protein 1+ (NEG) Urine Glucose (UA) TRACE (NEG) Urine Ketones NEG (NEG) Urine Occult Blood TRACE (NEG) Urine Nitrite NEG (NEG) Urine Bilirubin NEG (NEG) Urine Urobilinogen NEG (NEG) Urine Leukocyte Esterase NEG (NEG) Urine WBC (Auto) 1-5 /hpf (0-5) Urine RBC (Auto) 0-4 /hpf (0-4) Urine Hyaline Casts (Auto) 0 /lpf (0-5) Urine Epithelial Cells (Auto) 10-20 /lpf (0-5) Urine Bacteria (Auto) NEG (NEG) Test 11/16/16 05:23 11/16/16 06:57 11/16/16 08:46 Anion Gap 10.0 mmol/L (3-11) Est Creatinine Clear Calc Drug Dose 13.1 ml/min Estimated GFR () 8.3 Estimated GFR (Non- 7.2 BUN/Creatinine Ratio 3.4 (10-20) Calcium Level 7.6 mg/dl (8.5-10.1) Total Creatine Kinase 63 U/L (39-308) Creatine Kinase MB 0.7 ng/ml (0.5-3.6) Creatine Kinase MB Ratio 1.1 (0-3.0) Troponin I < 0.015 ng/ml (0-0.045) Bedside Glucose 84 mg/dl (70-99) Hepatitis B Surface Antigen NEG (NEG) Hepatitis B Surface Antibody POS Allergies Coded Allergies: Adhesives (Verified Allergy, Mild, 05/08/16) Aspirin (Verified Adverse Reaction, Mild, NOSE BLEED, 05/08/16) Medications Current Inpatient Medications Medications (Trade) Dose Ordered Sig/Willy Route Start Time Stop Time Status Last Admin Dose Admin Hydralazine HCl (HydrALAZINE INJ) 10 mg Q6H PRN IV. 11/15/16 13:45 12/15/16 13:44 11/15/16 17:21 10 MG Acetaminophen (Tylenol Tab) 650 mg Q4H PRN PO 11/15/16 14:45 12/15/16 14:44 11/16/16 07:16 650 MG Ondansetron HCl (Zofran Inj) 4 mg Q6H PRN IV 11/15/16 14:45 12/15/16 14:44 Aspirin (Ecotrin Tab) 81 mg DAILY PO 11/16/16 09:00 12/16/16 08:59 11/16/16 07:18 81 MG Docusate Sodium (coLACE CAP) 100 mg BID PRN PO 11/15/16 14:45 12/15/16 14:44 Multivitamins (Multivitamin Tab) 1 tab QAM PO 11/16/16 09:00 12/16/16 08:59 11/16/16 07:18 1 TAB Cinacalcet (Sensipar) 30 mg QPM PO 11/15/16 21:00 12/15/16 20:59 11/15/16 20:20 30 MG Calcium Acetate (Phoslo Cap) 2,001 mg TIDM PO 11/15/16 17:08 12/15/16 17:59 11/16/16 07:19 2,001 MG Glipizide (GlipiZIDE EXTENDED REL TAB) 2.5 mg QAM PO 11/16/16 09:00 12/16/16 08:59 11/16/16 07:18 2.5 MG Insulin Aspart (novoLOG ASPART) SLIDING SCALE G... ACHS SC 11/15/16 16:00 12/15/16 15:59 Miscellaneous (Iv Fluids Completed) 1 ea PRN PRN N/A 11/15/16 15:00 11/15/17 14:59 Glucose (Glucose 40% Gel) 15-30 GRAMS 15 GRAMS... UD PRN PO 11/15/16 15:30 12/15/16 15:29 Glucose (Glucose Chew Tab) 4-8 Tablets 4 Tabl... UD PRN PO 11/15/16 15:30 12/15/16 15:29 Dextrose (Dextrose 50% 50ML Syringe) 25-50ML OF 50% DW IV FOR... UD PRN IV 11/15/16 15:30 12/15/16 15:29 Glucagon (Glucagon Inj) 1 mg UD PRN SQ 11/15/16 15:30 12/15/16 15:29 Morphine Sulfate (MoRPHine SULFATE INJ) 4 mg Q4H PRN IV 11/15/16 17:30 11/29/16 17:29 Morphine Sulfate (MoRPHine SULFATE INJ) 2 mg Q4H PRN IV 11/15/16 17:30 11/29/16 17:29 Lorazepam (Ativan Inj) 0.5 mg Q4H PRN IV 11/15/16 17:30 12/15/16 17:29 Lorazepam (Ativan Inj) 1 mg Q4H PRN IV 11/15/16 17:30 3/12/17 17:29 Lorazepam (Ativan Tab) 0.5 mg Q6 PRN PO 11/15/16 17:30 12/15/16 17:29 Metoprolol Tartrate (Lopressor Iv) 5 mg Q4 PRN IV 11/15/16 17:30 12/15/16 17:29 Hydralazine HCl (Apresoline Tab) 25 mg Q8 PO 11/15/16 17:45 12/15/16 17:44 Future Hold Metoprolol Tartrate (Lopressor Tab) 25 mg Q8 PO 11/15/16 22:00 12/15/16 21:59 11/16/16 05:57 25 MG Lisinopril (Zestril Tab) 5 mg QAM PO 11/16/16 09:00 12/16/16 08:59 Future Hold Heparin Sodium (Porcine) (Heparin Iv Bolus) 3,000 unit TODAY@0600 IV 11/16/16 06:00 11/16/16 18:00 Heparin Sodium (Porcine) 500 unit 500 unit TODAY@0600,0700,0800 IV 11/16/16 06:00 11/16/16 18:00 Sodium Chloride (Nss 1000ml) 1,000 ml @ 0 mls/hr Q0M PRN IV 11/16/16 06:00 11/16/16 18:00 Captopril (Capoten Tab) 25 mg BID PO 11/15/16 21:00 12/15/16 20:59 11/15/16 20:21 25 MG Impression (1) ESRD on hemodialysis (2) Encounter for hemodialysis for ESRD (3) Accelerated hypertension (4) Chest pain Mr. Levy is a 50-year-old male with hypertension and ESRD due to chronic GN. 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 He is maintained on hemodialysis MWF. Last dialysis treatment yesterday. He describes recent unintentional weight loss. Today, we will challenge EDW with HD. Recommendations -- HD 3 hrs Qb 400 -- Oversight of hemodialysis treatment provided this morning -- Blood pressure and Qb appropriate -- UF goal 3 kg as tolerated -- Nitropaste discontinued -- Medications appropriate for renal function -- ACS ruled out by cardiac enzymes
--- NOTE | 2016-11-16 18:49 | Progress Note ---
Subjective Date of Service: Nov 16, 2016. Subjective no further chest pain and feels better with better blood pressure control. on hemodialysis today to help reduce plasma volume and assist in bp control Problem List Medical Problems: (1) Diab Wendy Wo Compl, Type Ii Or Unspec Type, Not Uncntrld Status: Chronic (2) Diverticulosis Colon (W/O Ment Of Hemorrhage) Status: Chronic (3) HTN (hypertension) Status: Chronic (4) Hx-Malig Skin Melanoma Status: Chronic (5) Kidney disease Status: Chronic (6) Kidney Transplant Failure Status: Chronic (7) Renal Dialysis Status Status: Chronic (8) Substernal precordial chest pain Status: Acute Surgical Problems: (1) H/O kidney transplant Status: Chronic Review of Systems Constitutional: No chills, No fever Respiratory: No cough, No dyspnea on exertion, No shortness of breath Cardiac: No chest pain, No edema Abdomen: No diarrhea, No nausea, No pain, No vomiting Psychiatric: No anhedonism, No depression symptoms Objective Vital Signs Date Time Temp Pulse Resp B/P Pulse Ox O2 Delivery O2 Flow Rate FiO2 11/16/16 16:00 Room Air 11/16/16 15:54 36.7 66 18 157/91 94 Room Air 11/16/16 14:30 36.6 59 154/94 11/16/16 13:30 58 151/95 11/16/16 13:15 57 152/97 11/16/16 13:00 57 165/94 11/16/16 12:45 56 151/95 11/16/16 12:30 56 160/93 11/16/16 12:15 51 145/91 11/16/16 12:00 Room Air 11/16/16 12:00 58 159/89 11/16/16 11:45 57 145/91 11/16/16 11:30 58 142/93 11/16/16 11:15 57 149/90 11/16/16 11:00 59 149/88 11/16/16 10:45 59 148/80 11/16/16 10:30 61 145/88 11/16/16 10:15 37.0 63 139/82 11/16/16 08:00 Room Air 11/16/16 07:18 36.6 60 18 149/81 96 Room Air 11/16/16 04:57 Room Air 11/16/16 04:39 36.9 60 18 145/88 97 Room Air 11/16/16 00:01 Room Air 11/15/16 23:50 36.9 57 18 137/86 94 Room Air 11/15/16 22:00 72 148/80 11/15/16 19:30 36.6 82 18 144/71 96 Room Air 11/15/16 19:30 Room Air Physical Exam General Appearance: WD/WN, + mild distress Neck: supple, no JVD Respiratory/Chest: lungs clear, normal breath sounds Cardiovascular: regular rate, rhythm, + systolic murmur Abdomen: normal bowel sounds, non tender, soft Extremities: no pedal edema, no calf tenderness Laboratory Results Last 24 Hours Test 11/15/16 20:17 11/15/16 20:26 11/16/16 02:41 11/16/16 05:23 Bedside Glucose 145 mg/dl Total Creatine Kinase 72 U/L 63 U/L Creatine Kinase MB 1.1 ng/ml 0.7 ng/ml Creatine Kinase MB Ratio 1.5 1.1 Troponin I < 0.015 ng/ml < 0.015 ng/ml Urine Color YELLOW Urine Appearance CLEAR Urine pH >= 9.0 Urine Specific [place] 1.005 Urine Protein 1+ Urine Glucose (UA) TRACE Urine Ketones NEG Urine Occult Blood TRACE Urine Nitrite NEG Urine Bilirubin NEG Urine Urobilinogen NEG Urine Leukocyte Esterase NEG Urine WBC (Auto) 1-5 /hpf Urine RBC (Auto) 0-4 /hpf Urine Hyaline Casts (Auto) 0 /lpf Urine Epithelial Cells (Auto) 10-20 /lpf Urine Bacteria (Auto) NEG Sodium Level 136 mmol/L Potassium Level 4.0 mmol/L Chloride Level 94 mmol/L Carbon Dioxide Level 32 mmol/L Anion Gap 10.0 mmol/L Blood Urea Nitrogen 27 mg/dl Creatinine 7.80 mg/dl Est Creatinine Clear Calc Drug Dose 13.1 ml/min Estimated GFR () 8.3 Estimated GFR (Non- 7.2 BUN/Creatinine Ratio 3.4 Random Glucose 84 mg/dl Calcium Level 7.6 mg/dl Test 11/16/16 06:57 11/16/16 08:46 11/16/16 11:18 11/16/16 16:25 Bedside Glucose 84 mg/dl 90 mg/dl 108 mg/dl Hepatitis B Surface Antigen NEG Hepatitis B Surface Antibody POS Assessment and Plan 50-M presents with chest pain and hypertensive urgency, has history of esrd on dialysis, diabetes, hypertension. chest pain negative enzymes, consider stress for risk stratification, ASA Hypertensive urgency renal added captopril, dialysis to reduce plasma volume, caution with B Lukasz due to relative bradycardia End-stage renal disease-continue with dialysis additional treatment per dr hughes - Sensipar 60 mg daily, PhosLo 2001 mg 3 times daily with meals diabetes mellitus- glipizide 2.5 mg daily, insulin sliding scale DVT prophylaxis -TEDS, SCDs CODE STATUS -LEVEL I FULL CODE
[2016-11-16] MEDS: CINACALCET 30 MG TAB PO SCH (20:59)
[2016-11-17] VITALS (8 sets, daily range): BP systolic 148–165; BP diastolic 82–112; PULSE 59–72; TEMP 36.4–36.8; O2SAT 94–97
[2016-11-17 04:11] LABS: INFLUENZA A PCR Neg for Influ A (NEG); INFLUENZA B PCR Neg for Influ B (NEG)
[2016-11-17] MEDS: METOPROLOL TARTRATE 25 MG TAB PO SCH ×3 (06:07→19:51)
[2016-11-17] MEDS: INSULIN ASPART 100 UNITS/ML 3 ML PEN SC SCH ×4 (07:00→20:56)
[2016-11-17 07:08] LABS: BUN/CREATININE RATIO 3.7 (10-20); CALCIUM 7.9 mg/dl (8.5-10.1); POTASSIUM 4.5 mmol/L (3.5-5.1)
[2016-11-17] MEDS: ASPIRIN 81 MG ECTAB PO SCH (07:34)
[2016-11-17] MEDS: CALCIUM ACETATE 667MG GELCAP PO SCH ×3 (07:35→17:05)
[2016-11-17] MEDS: CAPTOPRIL 25 MG TAB PO SCH ×3 (07:36→19:51)
[2016-11-17] MEDS: MULTIVITAMIN TAB PO SCH (07:36)
--- NOTE | 2016-11-17 10:59 | Nephrology Progress Note ---
Nephrology Progress Note Date of Service Nov 17, 2016. Chief Complaint ESRD on HD Subjective No acute events overnight. Mr. Levy tolerated HD yesterday for net UF 3 kg. Blood pressure improved but remains slightly above goal. Weight has decreased appropriately from 100 to 97 kg. He reports mild cramping in his feet during dialysis. He was able to walk around his hospital room this morning without lightheadedness or dizziness. Appetite is good. He denies any chest pain, palpitations or dyspnea. Review of Systems A complete review of systems was performed. Pertinent positives are noted above. All other systems are negative. Vital Signs Last 8 Hrs Date Time Temp Pulse Resp B/P Pulse Ox O2 Delivery O2 Flow Rate FiO2 11/17/16 10:34 36.8 60 20 155/82 96 11/17/16 08:00 Room Air 11/17/16 07:01 36.6 62 20 160/88 95 Room Air 11/17/16 06:06 68 152/96 11/17/16 04:00 36.5 148/87 94 Room Air 11/17/16 04:00 94 Room Air I & O 24-Hour Column 11/17/16 07:59 Intake Total 950 ml Output Total 3000 ml Balance -2050 ml Last Recorded Weight Weight (Kilograms): 97.100 Physical Exam General Appearance: WD/WN, no apparent distress Head: normocephalic, atraumatic Eyes: normal inspection, sclerae normal ENT: normal ENT inspection, pharynx normal Neck: supple, + pertinent finding (JVP 10 cm) Respiratory/Chest: lungs clear, no respiratory distress, no accessory muscle use Cardiovascular: regular rate, rhythm, no murmur Abdomen/GI: non tender, soft Extremities/Musculoskelatal: normal inspection, no pedal edema, + pertinent finding (LUE AVF with thrill and bruit) Neurologic/Psych: alert, oriented x 3 Family History Diabetes mellitus FH: diabetes mellitus FH: heart disease Hypertension Kidney disease Social History Smoking Status: Never smoker Alcohol Use: none Marital Status: Housing Status: lives with family Occupation: employed Laboratory Results Past 24 Hours 11/17/16 05:15 Test 11/16/16 11:18 11/16/16 16:25 11/16/16 20:08 11/17/16 03:45 Bedside Glucose 90 mg/dl (70-99) 108 mg/dl (70-99) 79 mg/dl (70-99) Influenza Type A (RT-PCR) Neg for Influ A (NEG) Influenza Type B (RT-PCR) Neg for Influ B (NEG) Test 11/17/16 05:15 11/17/16 06:44 11/17/16 10:32 Anion Gap 10.0 mmol/L (3-11) Est Creatinine Clear Calc Drug Dose 14.4 ml/min Estimated GFR () 9.5 Estimated GFR (Non- 8.2 BUN/Creatinine Ratio 3.7 (10-20) Calcium Level 7.9 mg/dl (8.5-10.1) Bedside Glucose 79 mg/dl (70-99) 81 mg/dl (70-99) Allergies Coded Allergies: Adhesives (Verified Allergy, Mild, 05/08/16) Aspirin (Verified Adverse Reaction, Mild, NOSE BLEED, 05/08/16) Medications Current Inpatient Medications Medications (Trade) Dose Ordered Sig/Willy Route Start Time Stop Time Status Last Admin Dose Admin Hydralazine HCl (HydrALAZINE INJ) 10 mg Q6H PRN IV. 11/15/16 13:45 12/15/16 13:44 11/15/16 17:21 10 MG Acetaminophen (Tylenol Tab) 650 mg Q4H PRN PO 11/15/16 14:45 12/15/16 14:44 11/16/16 07:16 650 MG Ondansetron HCl (Zofran Inj) 4 mg Q6H PRN IV 11/15/16 14:45 12/15/16 14:44 Aspirin (Ecotrin Tab) 81 mg DAILY PO 11/16/16 09:00 12/16/16 08:59 11/17/16 07:34 81 MG Docusate Sodium (coLACE CAP) 100 mg BID PRN PO 11/15/16 14:45 12/15/16 14:44 Multivitamins (Multivitamin Tab) 1 tab QAM PO 11/16/16 09:00 12/16/16 08:59 11/17/16 07:36 1 TAB Cinacalcet (Sensipar) 30 mg QPM PO 11/15/16 21:00 12/15/16 20:59 11/16/16 20:59 30 MG Calcium Acetate (Phoslo Cap) 2,001 mg TIDM PO 11/15/16 17:08 12/15/16 17:59 11/17/16 07:35 2,001 MG Glipizide (GlipiZIDE EXTENDED REL TAB) 2.5 mg QAM PO 11/16/16 09:00 12/16/16 08:59 11/17/16 07:36 2.5 MG Insulin Aspart (novoLOG ASPART) SLIDING SCALE G... ACHS SC 11/15/16 16:00 12/15/16 15:59 Miscellaneous (Iv Fluids Completed) 1 ea PRN PRN N/A 11/15/16 15:00 11/15/17 14:59 Glucose (Glucose 40% Gel) 15-30 GRAMS 15 GRAMS... UD PRN PO 11/15/16 15:30 12/15/16 15:29 Glucose (Glucose Chew Tab) 4-8 Tablets 4 Tabl... UD PRN PO 11/15/16 15:30 12/15/16 15:29 Dextrose (Dextrose 50% 50ML Syringe) 25-50ML OF 50% DW IV FOR... UD PRN IV 11/15/16 15:30 12/15/16 15:29 Glucagon (Glucagon Inj) 1 mg UD PRN SQ 11/15/16 15:30 12/15/16 15:29 Morphine Sulfate (MoRPHine SULFATE INJ) 4 mg Q4H PRN IV 11/15/16 17:30 11/29/16 17:29 Morphine Sulfate (MoRPHine SULFATE INJ) 2 mg Q4H PRN IV 11/15/16 17:30 11/29/16 17:29 Lorazepam (Ativan Inj) 0.5 mg Q4H PRN IV 11/15/16 17:30 12/15/16 17:29 Lorazepam (Ativan Inj) 1 mg Q4H PRN IV 11/15/16 17:30 12/15/16 17:29 Lorazepam (Ativan Tab) 0.5 mg Q6 PRN PO 11/15/16 17:30 12/15/16 17:29 Metoprolol Tartrate (Lopressor Iv) 5 mg Q4 PRN IV 11/15/16 17:30 12/15/16 17:29 Hydralazine HCl (Apresoline Tab) 25 mg Q8 PO 11/15/16 17:45 3/12/17 17:44 Future Hold Metoprolol Tartrate (Lopressor Tab) 25 mg Q8 PO 11/15/16 22:00 12/15/16 21:59 11/17/16 06:07 25 MG Lisinopril (Zestril Tab) 5 mg QAM PO 11/16/16 09:00 12/16/16 08:59 Future Hold Captopril (Capoten Tab) 25 mg BID PO 11/15/16 21:00 12/15/16 20:59 11/17/16 07:36 25 MG Impression (1) ESRD on hemodialysis (2) Encounter for hemodialysis for ESRD (3) Accelerated hypertension (4) Chest pain Mr. Levy is a 50-year-old male with hypertension and ESRD. 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 He is maintained on hemodialysis MWF. Last dialysis treatment yesterday. He describes recent unintentional weight loss. He had experienced recent chest pain and visual changes associated with accelerated hypertension. Tolerated an additional dialysis treatment yesterday to challenge his EDW. He is tolerating captopril well. Recommendations -- HD tomorrow per MWF schedule. Continue to challenge dry weight with fluid removal. -- Increase captopril to TID -- Renin pending -- Discussed logistics of scheduling non urgent cardiac stress test with Dr. Gomez this morning. Will plan on dialysis to challenge dry weight today and stress at a later date once BP control improved. -- Medications appropriate for renal function
--- NOTE | 2016-11-17 13:00 | Progress Note ---
Subjective Date of Service: Nov 17, 2016. Subjective pt feels asymptomatic since blood pressure improved, for scheduled HD 09/17 and possible stress after ( or even friday as outpt) Problem List Medical Problems: (1) Diab Wendy Wo Compl, Type Ii Or Unspec Type, Not Uncntrld Status: Chronic (2) Diverticulosis Colon (W/O Ment Of Hemorrhage) Status: Chronic (3) HTN (hypertension) Status: Chronic (4) Hx-Malig Skin Melanoma Status: Chronic (5) Kidney disease Status: Chronic (6) Kidney Transplant Failure Status: Chronic (7) Renal Dialysis Status Status: Chronic (8) Substernal precordial chest pain Status: Acute Surgical Problems: (1) H/O kidney transplant Status: Chronic Review of Systems Constitutional: No chills, No fatigue, No fever, No weakness Respiratory: No cough, No shortness of breath, No sputum, No wheezing Cardiac: No PND, No chest pain, No edema Abdomen: No diarrhea, No nausea, No pain, No vomiting Male : No dysuria, No urinary frequency Psychiatric: No anhedonism, No depression symptoms Objective Vital Signs Date Time Temp Pulse Resp B/P Pulse Ox O2 Delivery O2 Flow Rate FiO2 11/17/16 12:00 Room Air 11/17/16 10:34 36.8 60 20 155/82 96 11/17/16 08:00 Room Air 11/17/16 07:01 36.6 62 20 160/88 95 Room Air 11/17/16 06:06 68 152/96 11/17/16 04:00 36.5 148/87 94 Room Air 11/17/16 04:00 94 Room Air 11/17/16 00:00 96 Room Air 11/17/16 00:00 36.7 62 159/96 96 Room Air 11/16/16 20:00 36.6 62 164/96 95 Room Air 11/16/16 20:00 95 Room Air 11/16/16 16:00 Room Air 11/16/16 15:54 36.7 66 18 157/91 94 Room Air 11/16/16 14:30 36.6 59 154/94 11/16/16 13:30 58 151/95 11/16/16 13:15 57 152/97 11/16/16 13:00 57 165/94 Physical Exam General Appearance: WD/WN, no apparent distress Neck: supple, no JVD Respiratory/Chest: chest non-tender, lungs clear, normal breath sounds Cardiovascular: regular rate, rhythm, no murmur Abdomen: normal bowel sounds, non tender, soft Extremities: no pedal edema, no calf tenderness Laboratory Results Last 24 Hours Test 11/16/16 16:25 11/16/16 20:08 11/17/16 03:45 11/17/16 05:15 Bedside Glucose 108 mg/dl 79 mg/dl Influenza Type A (RT-PCR) Neg for Influ A Influenza Type B (RT-PCR) Neg for Influ B Sodium Level 135 mmol/L Potassium Level 4.5 mmol/L Chloride Level 96 mmol/L Carbon Dioxide Level 29 mmol/L Anion Gap 10.0 mmol/L Blood Urea Nitrogen 26 mg/dl Creatinine 7.00 mg/dl Est Creatinine Clear Calc Drug Dose 14.4 ml/min Estimated GFR () 9.5 Estimated GFR (Non- 8.2 BUN/Creatinine Ratio 3.7 Random Glucose 76 mg/dl Calcium Level 7.9 mg/dl Test 11/17/16 06:44 11/17/16 10:32 11/17/16 11:33 11/17/16 11:57 Bedside Glucose 79 mg/dl 81 mg/dl 52 mg/dl 85 mg/dl Assessment and Plan 50-M presents with chest pain and hypertensive urgency, has history of esrd on dialysis, diabetes, hypertension. chest pain negative enzymes, consider stress for risk stratification, ASA, need to coordinate sterss with dialysis Hypertensive urgency renal added captopril, dialysis to reduce plasma volume, caution with B Lukasz due to relative bradycardia, overall good improvement End-stage renal disease-continue with dialysis additional treatment per dr hughes - Sensipar 60 mg daily, PhosLo 2001 mg 3 times daily with meals diabetes mellitus- glipizide 2.5 mg daily, insulin sliding scale DVT prophylaxis -TEDS, SCDs CODE STATUS -LEVEL I FULL CODE
[2016-11-17] MEDS: CINACALCET 30 MG TAB PO SCH (19:51)
[2016-11-18] VITALS (30 sets, daily range): BP systolic 127–167; BP diastolic 84–101; PULSE 54–65; TEMP 36.2–36.9; O2SAT 94–97; Ht 177.8 cm; Wt 95.8 kg
[2016-11-18] MEDS: METOPROLOL TARTRATE 25 MG TAB PO SCH ×3 (06:06→22:01)
[2016-11-18] MEDS: CALCIUM ACETATE 667MG GELCAP PO SCH ×3 (07:27→18:20)
[2016-11-18] MEDS: MULTIVITAMIN TAB PO SCH (07:28)
[2016-11-18] MEDS: CAPTOPRIL 25 MG TAB PO SCH ×3 (07:28→20:39)
[2016-11-18] MEDS: ASPIRIN 81 MG ECTAB PO SCH (07:28)
[2016-11-18] MEDS: INSULIN ASPART 100 UNITS/ML 3 ML PEN SC SCH ×4 (07:32→20:35)
--- NOTE | 2016-11-18 09:58 | NEPHROLOGY PROGRESS NOTE ---
DATE: 11/18/2016 SUBJECTIVE: Mr. Levy says that he is feeling fine. He has not had a headache and has not had chest pain or shortness of breath since being hospitalized. He has no symptoms of volume overload and no symptoms of uremia. With dialysis on Friday (11/16/2016), we did reduce his weight by about 3 pounds. He tolerated the treatment reasonably well except for some muscle cramps toward the end of his treatment, which were not particularly severe or long lasting. His blood pressure has remained slightly elevated since that time but far better than it was at the time of admission. His antihypertensive regimen continues to include captopril 25 mg t.i.d. and metoprolol tartrate 25 mg 3 times a day as well. OBJECTIVE: GENERAL: When seen by me, Mr. Levy appeared perfectly comfortable. VITAL SIGNS: He is afebrile (36.7), his blood pressure 145/92, his pulse 57 and regular, respiratory rate 20, his pulse ox 96% on room air. SKIN: Shows normal skin turgor. He has no rash or infiltrative skin disease. He has scars from prior surgical procedures including a large scar over his mid back in the lower thoracic and upper lumbar areas from previous removal of a malignancy. He has a left upper arm AV fistula which functions quite well and a right lower quadrant scar from his kidney transplant as well as mid abdominal scars from a colostomy and its takedown. LYMPHATICS: Show no palpable lymphadenopathy. HEAD: Normal. EYES: Grossly normal. The ocular fundi were not examined. EARS, NOSE, MOUTH AND THROAT: All unremarkable. His oral mucous membranes are moist. NECK: Supple. He has no jugular venous distention. He has no carotid bruit or thyromegaly. CHEST: Clear to auscultation. He has no wheezes, rales or rhonchi. CARDIAC: Regular rhythm. S1 and S2 are normal. There is a soft systolic murmur at the base radiating toward the neck. Additionally, he has a continuous murmur radiating from his left upper arm AV fistula into the left side of his chest and to the base. Occluding the fistula decreases that murmur significantly. ABDOMEN: Somewhat obese but nontender. There is no organomegaly or mass. Bowel sounds are present. EXTREMITIES: Show no cyanosis, clubbing or peripheral edema. He has a well-functioning left upper arm AV fistula. NEUROLOGIC: No lateralizing changes. LABORATORY WORK: From today is limited to blood sugars that are in the range of 91-106. His cardiac workup shows a stable but slightly abnormal electrocardiogram with sinus bradycardia and first-degree heart block. There is a question of left atrial enlargement. He has slow R-wave progression across the precordium, raising the question of an old anteroseptal infarct. The T-waves are decreased in V2 and V3, possibly from alterations in lead placement. Nonetheless, his EKG has been stable throughout his hospital stay. Additionally, his troponins have been normal, and his CK and CK-MB are likewise normal. ASSESSMENT: Mr. Levy had an acceleration of his blood pressure, likely secondary to volume overload. Reducing his volume and adding an ROSEANN inhibitor to his regimen and making sure that he was getting his metoprolol has led to a significant improvement in his blood pressure. It is not quite in the target range, however. A plasma renin is pending. An occasional patient with end-stage renal disease can get markedly hyperreninemic and that can certainly affect his blood pressure. RECOMMENDATIONS: Dialysis again today and we will attempt to reduce his dry weight even further. After dialysis if he remains stable, he can probably be discharged unless he is going to get a stress test later today, and if that is the case, he can be discharged after that assuming the stress test is normal. When he is discharged, he should be discharged on all his prehospital medications but continue him on either metoprolol tartrate 25 mg 3 times a day or metoprolol succinate 100 mg daily. Additionally, he should remain on an ROSEANN inhibitor. Currently, he is on captopril 25 mg t.i.d. However, as an outpatient, for his convenience, he could probably be switched to lisinopril 20 mg daily. However, if his blood pressure drops considerably with his volume depletion on dialysis today, we may want to consider reducing the dose of both to b.i.d. We will certainly follow him closely as an outpatient should he be discharged today.
--- NOTE | 2016-11-18 12:10 | Cardiology Consultation ---
Cardiology Consultation Date of Consultation: Nov 18, 2016. Requesting Physician: Dr. Jones Reason for Consultation: Chest pain Pt evaluation today including: conversation w/ patient, conversation w/ family , physical exam, lab review, review of studies, review of inpatient medication list History of Present Illness This is a 50-year-old gentleman who has a history of long-standing renal failure with a renal transplant in 2007 which has been rejected and he is back on hemodialysis. He has long-standing hypertension, diabetes mellitus and hypercholesterolemia. He has no known cardiovascular disease but has risk factors of diabetes mellitus, hypertension and a strong family history. At dialysis he developed substernal chest discomfort and was sent to the hospital. He evidently has been somewhat noncompliant with his medications. He reports having substernal chest discomfort with radiation up through the left side of his neck, not to his left shoulder or arm or to his back. He reports having this before with exertion for the last several years. He has had stress tests in the past, the last one that I know of was 08/09/2013 and that was a stress echo which was negative for ischemia although he only achieved 81% of his predicted maximal heart rate. Since admission on 11/15/2016 his cardiac enzymes have been negative, his electrocardiograms have not shown any progression and he has had no further chest discomfort. Past Medical/Surgical History Medical Problems: (1) Diab Wendy Wo Compl, Type Ii Or Unspec Type, Not Uncntrld Status: Chronic (2) Diverticulitis Colon (W/O Ment Of Hemorrhage) Status: Resolved (3) Diverticulosis Colon (W/O Ment Of Hemorrhage) Status: Chronic (4) Hematuria Status: Resolved (5) HTN (hypertension) Status: Chronic (6) Hx-Malig Skin Melanoma Status: Chronic (7) Kidney disease Status: Chronic (8) Kidney Transplant Failure Status: Chronic (9) Left flank pain Status: Resolved (10) Renal Dialysis Status Status: Chronic (11) UTI (urinary tract infection) Status: Resolved Surgical Problems: (1) H/O kidney transplant Status: Chronic (2) History of bowel resection Status: Resolved Family History Diabetes mellitus FH: diabetes mellitus FH: heart disease Hypertension Kidney disease By his history his father developed artery disease in his 40s, he had a stent placed shortly before 2008 and had a heart attack around 2008 and at that time. Social History Smoking Status: Never Smoker History of Alcohol Use: Yes (RARELY) Review of Systems Constitutional: No fever, No weakness, No weight loss Respiratory: No cough, No dyspnea on exertion, No shortness of breath Cardiac: + chest pain, + see HPI, No edema Abdomen: No GI bleeding, No diarrhea, No nausea, No pain, No vomiting Male : No nocturia more than once/night, No sexual dysfunction, No slowing stream, No urinary frequency Neurologic: No balance problems, No numbness/tingling, No paralysis, No weakness Heme: No abnormal bleeding/bruising, No clotting problems Endo: No fatigue Skin: No problem reported All Other Systems: Reviewed and Negative Allergies Coded Allergies: Adhesives (Verified Allergy, Mild, 05/08/16) Aspirin (Verified Adverse Reaction, Mild, NOSE BLEED, 05/08/16) Medications Current Inpatient Medications Medications (Trade) Dose Ordered Sig/Willy Route Start Time Stop Time Status Last Admin Dose Admin Hydralazine HCl (HydrALAZINE INJ) 10 mg Q6H PRN IV. 11/15/16 13:45 12/15/16 13:44 11/15/16 17:21 10 MG Acetaminophen (Tylenol Tab) 650 mg Q4H PRN PO 11/15/16 14:45 12/15/16 14:44 11/16/16 07:16 650 MG Ondansetron HCl (Zofran Inj) 4 mg Q6H PRN IV 11/15/16 14:45 12/15/16 14:44 Aspirin (Ecotrin Tab) 81 mg DAILY PO 11/16/16 09:00 12/16/16 08:59 11/18/16 07:28 81 MG Docusate Sodium (coLACE CAP) 100 mg BID PRN PO 11/15/16 14:45 12/15/16 14:44 Multivitamins (Multivitamin Tab) 1 tab QAM PO 11/16/16 09:00 12/16/16 08:59 11/18/16 07:28 1 TAB Cinacalcet (Sensipar) 30 mg QPM PO 11/15/16 21:00 12/15/16 20:59 11/17/16 19:51 30 MG Calcium Acetate (Phoslo Cap) 2,001 mg TIDM PO 11/15/16 17:08 12/15/16 17:59 11/18/16 11:16 2,001 MG Glipizide (GlipiZIDE EXTENDED REL TAB) 2.5 mg QAM PO 11/16/16 09:00 12/16/16 08:59 Future Hold 11/17/16 07:36 2.5 MG Insulin Aspart (novoLOG ASPART) SLIDING SCALE G... ACHS SC 11/15/16 16:00 12/15/16 15:59 Miscellaneous (Iv Fluids Completed) 1 ea PRN PRN N/A 11/15/16 15:00 11/15/17 14:59 Glucose (Glucose 40% Gel) 15-30 GRAMS 15 GRAMS... UD PRN PO 11/15/16 15:30 12/15/16 15:29 Glucose (Glucose Chew Tab) 4-8 Tablets 4 Tabl... UD PRN PO 11/15/16 15:30 12/15/16 15:29 Dextrose (Dextrose 50% 50ML Syringe) 25-50ML OF 50% DW IV FOR... UD PRN IV 11/15/16 15:30 12/15/16 15:29 Glucagon (Glucagon Inj) 1 mg UD PRN SQ 11/15/16 15:30 12/15/16 15:29 Morphine Sulfate (MoRPHine SULFATE INJ) 4 mg Q4H PRN IV 11/15/16 17:30 11/29/16 17:29 Morphine Sulfate (MoRPHine SULFATE INJ) 2 mg Q4H PRN IV 11/15/16 17:30 11/29/16 17:29 Lorazepam (Ativan Inj) 0.5 mg Q4H PRN IV 11/15/16 17:30 12/15/16 17:29 Lorazepam (Ativan Inj) 1 mg Q4H PRN IV 11/15/16 17:30 12/15/16 17:29 Lorazepam (Ativan Tab) 0.5 mg Q6 PRN PO 11/15/16 17:30 12/15/16 17:29 Metoprolol Tartrate (Lopressor Iv) 5 mg Q4 PRN IV 11/15/16 17:30 12/15/16 17:29 Hydralazine HCl (Apresoline Tab) 25 mg Q8 PO 11/15/16 17:45 12/15/16 17:44 Future Hold Metoprolol Tartrate (Lopressor Tab) 25 mg Q8 PO 11/15/16 22:00 12/15/16 21:59 11/18/16 06:06 25 MG Captopril (Capoten Tab) 25 mg TID PO 11/17/16 14:00 12/17/16 13:59 11/18/16 07:28 25 MG Physical Exam Vital Signs Past 12 Hours Date Time Temp Pulse Resp B/P Pulse Ox O2 Delivery O2 Flow Rate FiO2 11/18/16 11:15 Room Air 11/18/16 07:51 36.7 57 20 145/92 96 Room Air 11/18/16 07:25 Room Air 11/18/16 04:00 Room Air 11/18/16 03:47 36.6 56 18 160/88 95 Room Air 11/18/16 00:06 36.9 56 18 159/95 96 Room Air 11/17/16 23:59 Room Air Constitutional: General Apperance: heathly-appearing Level of Distress: NAD Psychiatric: Mental Status: active & alert Head: normocephalic Eyes: EOM: EOMI ENMT: normal ENT inspection, hearing grossly normal Neck: supple, no masses Lungs: Respiratory effort: no dyspnea, good air movement Auscultation: breath sounds normal, no wheezing Cardiovascular: Heart Auscultation: RRR, no murmurs, no rubs, no gallops Peripheral Pulses: Bruits: none appreciated Abdomen: Bowel Sounds: normal Inspection & Palpation: soft, no tenderness, guarding & rebound, no masses Musculoskeletal: normal strength (5/5 throughout) Extremities: no edema Neurologic: Cranial Nerves: grossly intact Sensation: grossly intact Data Laboratory Results: Last 24 Hours Test 11/17/16 11:33 11/17/16 11:57 11/17/16 15:55 11/17/16 20:26 Bedside Glucose 52 mg/dl 85 mg/dl 77 mg/dl 106 mg/dl Test 11/18/16 06:55 11/18/16 11:18 Bedside Glucose 91 mg/dl 59 mg/dl EKG: On admission and subsequently: SR, first degree AV block. No acute changes. Telemetry reviewed: SR with first degree AV block, no significant arrhythmia Assessment & Plan #1. Chest discomfort: His chest discomfort is consistent with coronary artery disease although not diagnostic. It sounds as though he has had this for about 2 years with exertion which would also be consistent. The current episode was on dialysis but he was quite hypertensive and this could've been demand ischemia. I think it would be very reasonable to consider a stress test, there does not appear to be any objective evidence of ischemia (no electrocardiographic changes and no enzyme abnormalities). If he stays here after dialysis today we can plan on doing it tomorrow, if he goes home this evening we can arrange it as an outpatient. I don't think it's necessary for him to stay in-house to have that particular procedure done. #2. Hypertension: He has significant hypertension, I believe he is quite noncompliant with his medications. He is on good doses of captopril and low doses of metoprolol. I think would be reasonable to increase his metoprolol for control of his hypertension, this will help with ischemia. Also has coronary artery disease. Thank you for allowing me to participate in his care.
[2016-11-18] MEDS: CINACALCET 30 MG TAB PO SCH (20:39)
--- NOTE | 2016-11-18 22:39 | Hospitalist Progress Note ---
Hospitalist Progress Note Date of Service Nov 18, 2016. Subjective Pt evaluation today including: conversation w/ patient, physical exam, chart review, lab review, review of studies, review of inpatient medication list No chest pain, had HD today and BPs improved but not at goal. No SOB. Has had exertional CP for about the last 2 years and last stress test in 2012. Respiratory: No shortness of breath Cardiovascular: No chest pain All Other Systems: Reviewed and Negative Objective Vital Signs Date Time Temp Pulse Resp B/P Pulse Ox O2 Delivery O2 Flow Rate FiO2 11/18/16 22:02 65 147/90 11/18/16 19:47 36.4 58 20 139/86 96 Room Air 11/18/16 18:30 36.7 58 140/91 11/18/16 17:45 58 145/87 11/18/16 17:30 58 130/84 11/18/16 17:15 59 135/91 11/18/16 17:00 59 142/84 11/18/16 16:45 57 130/92 11/18/16 16:30 57 142/87 11/18/16 16:15 61 141/86 11/18/16 16:00 Room Air 11/18/16 16:00 62 154/94 11/18/16 15:45 59 127/88 11/18/16 15:41 36.6 56 22 157/94 94 Room Air 11/18/16 15:30 54 143/93 11/18/16 15:15 59 161/96 11/18/16 15:00 56 167/97 11/18/16 14:45 56 157/94 11/18/16 14:30 57 153/97 11/18/16 14:15 58 162/97 11/18/16 14:00 56 163/99 11/18/16 13:55 58 151/99 11/18/16 13:37 36.5 59 156/101 11/18/16 11:36 36.5 58 20 142/87 97 Room Air 11/18/16 11:15 Room Air 11/18/16 07:51 36.7 57 20 145/92 96 Room Air 11/18/16 07:25 Room Air 11/18/16 04:00 Room Air 11/18/16 03:47 36.6 56 18 160/88 95 Room Air 11/18/16 00:06 36.9 56 18 159/95 96 Room Air 11/17/16 23:59 Room Air Physical Exam General Appearance: WD/WN, no apparent distress Eyes: normal inspection, sclerae normal ENT: hearing grossly normal Neck: trachea midline Respiratory/Chest: lungs clear, normal breath sounds, no respiratory distress, no accessory muscle use Cardiovascular: regular rate, rhythm, no edema, no gallop, no murmur Abdomen: normal bowel sounds, non tender, soft Extremities: non-tender, normal inspection, no pedal edema, no calf tenderness Neurologic/Psychiatric: alert, normal mood/affect, oriented x 3 Skin: warm/dry, no rash Laboratory Results Last 24 Hours Test 11/18/16 06:55 11/18/16 11:18 11/18/16 15:48 11/18/16 20:18 Bedside Glucose 91 mg/dl 59 mg/dl 84 mg/dl 138 mg/dl Assessment and Plan 50-M presents with chest pain and hypertensive urgency, has history of esrd on dialysis, diabetes mellitus type II, hypertension. Chest pain workup sounds like typical anginal symptoms for the last 2 years as per history: negative enzymes and no ischemia on ECGs -will stress with Stress ECHO tomorrow for risk stratification -continue ASA -Appreciate Cardiology recommendations -d/c to home if stress normal tomorrow Hypertensive urgency- much improved -Renal added captopril 25mg po tid and renin level pending - dialysis to reduce plasma volume -continue metoprolol 25mg po tid and can switch to Toprol XL 100mg daily for ease of administration at home End-stage renal disease-continue with dialysis additional treatment per Dr. Hayward - Sensipar 60 mg daily, PhosLo 2001 mg 3 times daily with meals Diabetes mellitus type II- no longer on glipizide 2.5 mg daily at home for hypoglycemia--> stop this here, continue insulin sliding scale DVT prophylaxis -TEDS, SCDs CODE STATUS -LEVEL I FULL CODE
[2016-11-19 03:40] VITALS: BP 138/84; PULSE 59; TEMP 36.8; O2SAT 97
[2016-11-19 05:59] VITALS: BP 125/77; PULSE 62
[2016-11-19] MEDS: METOPROLOL TARTRATE 25 MG TAB PO SCH ×2 (06:01→14:33)
[2016-11-19 06:59] LABS: BASO % 0.4 %; BASO ABS # 0.02 K/uL (0-0.2); COMPLETE YES; EOS % 3.7 %; HEMATOCRIT 35.6 % (42-52); IG% 0.2 %; LYMPH % 19.8 %; LYMPH ABS # 0.96 K/uL (1.2-3.4); MEAN CELL VOLUME 84.2 fL (80-100); MEAN CORPUSCULAR HEMOGLOBIN 28.8 pg (25-34); MEAN CORPUSCULAR HGB CONC 34.3 g/dl (32-36); MEAN PLATELET VOLUME 8.8 fL (7.4-10.4); NEUT % 68.9 %; PLATELET COUNT 172 K/uL (130-400); RED BLOOD COUNT 4.23 M/uL (4.7-6.1); WHITE BLOOD COUNT 4.86 K/uL (4.8-10.8)
[2016-11-19 07:32] LABS: CALCIUM 7.5 mg/dl (8.5-10.1); MAGNESIUM 2.3 mg/dl (1.8-2.4); POTASSIUM 4.6 mmol/L (3.5-5.1)
[2016-11-19 07:52] VITALS: BP 138/89; PULSE 45; TEMP 36.6; O2SAT 99
[2016-11-19 07:54] LABS: BUN/CREATININE RATIO 3.9 (10-20); CREATININE 7.1 mg/dl (0.60-1.40)
[2016-11-19] MEDS: CAPTOPRIL 25 MG TAB PO SCH ×2 (08:14→14:33)
[2016-11-19] MEDS: ASPIRIN 81 MG ECTAB PO SCH (08:14)
[2016-11-19] MEDS: CALCIUM ACETATE 667MG GELCAP PO SCH ×3 (08:14→16:56)
[2016-11-19] MEDS: MULTIVITAMIN TAB PO SCH (08:14)
[2016-11-19] MEDS: INSULIN ASPART 100 UNITS/ML 3 ML PEN SC SCH ×3 (08:16→16:55)
--- NOTE | 2016-11-19 09:56 | NEPHROLOGY PROGRESS NOTE ---
DATE: 11/19/2016 SUBJECTIVE: Mr. Levy is perfectly comfortable. He denies chest pain or shortness of breath. He says that his appetite has returned to normal. He has no nausea or vomiting. He has no other symptoms of uremia or volume overload. He tolerated his dialysis treatment yesterday with a further reduction in his estimated dry weight. OBJECTIVE: GENERAL: On physical exam this morning, Mr. Levy appears perfectly comfortable and at his usual baseline. VITAL SIGNS: He is afebrile (36.6), his blood pressure 138/89, his pulse 45 and regular, respiratory rate 16, his pulse ox 99% on room air. SKIN: Examination of his skin shows normal skin turgor. He has no obvious rash or infiltrative skin disease. He has scars from prior surgical procedures including a large scar over his mid back in the lower thoracic and upper lumbar areas from the previous removal of a cutaneous malignancy. There is a left upper arm AV fistula which is functioning quite well, and a right lower quadrant scar from his kidney transplant. He also has mid abdominal scars from a previous abdominal surgery for a colostomy and a subsequent takedown. LYMPHATICS: Show no palpable lymphadenopathy. HEAD: Normal. EYES: Grossly normal. The ocular fundi were not examined. EARS, NOSE, MOUTH AND THROAT: Unremarkable. His oral mucous membranes are moist. NECK: Supple. He has no jugular venous distension or carotid bruit. There is no thyromegaly. CARDIAC: Shows a regular rhythm. S1 and S2 are normal. He has a soft systolic murmur at the base radiating toward the neck. Additionally, there is a continuous murmur radiating into the left upper chest from his left upper arm AV fistula. Occluding the fistula decreases that murmur significantly. His chest is clear to auscultation. ABDOMEN: Somewhat obese, but nontender. There is no organomegaly or mass. Bowel sounds are normal. EXTREMITIES: Show no cyanosis, clubbing or peripheral edema. He has a well-functioning left upper arm AV fistula. NEUROLOGIC: Shows no lateralizing changes. PERTINENT LABORATORY WORK: From today, shows a white count of 4860 with a normal differential. His hemoglobin is 12.2, his hematocrit 35.6, his platelet count 172,000. Clinical chemistries show a sodium of 134 mmol/L, potassium 4.6 mmol/L, chloride 96 mmol/L, and CO2 content 26 mmol/L. His BUN is 28, his creatinine 7.10. His random blood sugar varies from a 81-138. His serum calcium is 7.5. His magnesium is 2.3. His prior serum albumin was 3.5. ASSESSMENT: Purely from the standpoint of his end-stage renal disease, Mr. Levy is doing quite well. His blood pressure is significantly improved with volume reduction, as well as the addition of captopril to his medical regimen. His laboratory work is consistent with his endstage renal disease, although he is more hypocalcemic then we would like to see. That can be rectified with the addition of calcitriol with each dialysis treatment which will be done as an outpatient. He will be getting a stress test today. Assuming that is reasonably normal, I think he can be discharged and we can pick him up in the outpatient dialysis unit in [place] tomorrow. He should be discharged on his current medications.
[2016-11-19 11:16] VITALS: BP 150/91; PULSE 56; TEMP 36.4; O2SAT 96
--- NOTE | 2016-11-19 12:45 | EXERCISE STRESS ECHO ---
*NOTICE TO RECEIVING REPUBLICAN AGENCY This information is strictly Confidential and protected under [place] law. [place] law prohibits you from making any further disclosure of this information unless further disclosure is expressly permitted by the written consent of the person to whom it pertains or is authorized by law. A general authorization for the release of medical or other information is not sufficient for this purpose. Hospital accepts no responsibility if the information is made available to any other person, INCLUDING THE PATIENT. Interpretation Summary * Name: RICCO GE Study Date: 11/19/2016 10:56 AM BP: 139/92 mmHg * Patient Location: C.2T\S\S231\S\1 HR: 55 * : 1965 (M/d/yyyy) Gender: Male Height: 70 in * Age: 50 yrs Ethnicity: CA Weight: 214 lb * Ordering Physician: Jeaneth Jones * Referring Physician: YANE * Performed By: Tona Rogel RDCS * * Reason For Study: CHEST PAIN * BSA: 2.1 m2 * History: CHEST PAIN * -- Conclusions -- * Normal stress echocardiogram at 6.1 METS and a peak heart rate of 48% maximum predicted. * No exercise induced chest pain. * No ECG changes. * Baseline echocardiogram notes normal left ventricular systolic function and moderate left ventricular hypertrophy, Procedure Details * ECHOEX, CPT #[id number] Left Ventricle * There is moderate concentric left ventricular hypertrophy. * Ejection Fraction = 55-60%. * Resting wall motion: Normal. Stress wall motion: Appropriate increase in Left ventricular systolic function and decrease in cavity size. No stress induced segmental wall motion abnormalities. Stress Parameters * The baseline ECG displays normal sinus rhythm. * Stress ECG: No ST changes. No arrhythmias. * The stress portion of this study was personally supervised by the undersigned interpreting physician. * Rest heart rate was '55' BPM. * Rest blood pressure was '139/92' * Maximum heart rate achieved was 82 bpm. * Maximum heart rate was 48 % of maximum age-predicted heart rate. * Maximum blood pressure was '143/74' * Total exercise time was '4:19' * Maximum exercise MET level achieved was '6.10' METS * Maximum treadmill speed was '2.5' miles per hour. * Maximum treadmill elevation was '12.00'% grade. * Exercise was terminated due to 'FATIGUE' MMode 2D Measurements and Calculations IVSd 1.5 cm IVSs 1.9 cm LVIDd 4.6 cm LVIDs 3.1 cm LVPWd 1.7 cm LVPWs 2.3 cm IVS/LVPW 0.89 FS 32.9 % EDV(Teich) 96.0 ml ESV(Teich) 37.0 ml EF(Teich) 61.5 % EDV(cubed) 95.6 ml ESV(cubed) 28.9 ml EF(cubed) 69.8 % % IVS thick 24.4 % % LVPW thick 35.2 % LV mass(C)d 315.6 grams LV mass(C)dI 146.9 grams/m\S\2 LV mass(C)s 295.3 grams LV mass(C)sI 137.5 grams/m\S\2 SV(Teich) 59.1 ml SI(Teich) 27.5 ml/m\S\2 SV(cubed) 66.8 ml SI(cubed) 31.1 ml/m\S\2 LVAd ap4 34.8 cm\S\2 LVLd ap4 9.2 cm EDV(MOD-sp4) 111.5 ml EDV(sp4-el) 112.1 ml LVAs ap4 20.6 cm\S\2 LVLs ap4 7.7 cm ESV(MOD-sp4) 54.3 ml ESV(sp4-el) 46.7 ml EF(MOD-sp4) 51.3 % EF(sp4-el) 58.3 % SV(MOD-sp4) 57.2 ml SI(MOD-sp4) 26.6 ml/m\S\2 SV(sp4-el) 65.3 ml SI(sp4-el) 30.4 ml/m\S\2
[2016-11-19] MEDS ORDERED: PHS667 PO (13:29)
[2016-11-19] MEDS ORDERED: CAPT25TA5 PO (13:29)
[2016-11-19] MEDS ORDERED: METO50TA7 PO (13:34)
--- NOTE | 2016-11-19 13:37 | Discharge Instructions ---
Discharge Instructions Admission Reason for Admission: Chest Pain (Haily Diaz PA-C) Discharge Discharge Diagnosis / Problem: Chest discomfort (Haily Diaz PA-C) Discharge Goals Goal(s): Decrease discomfort, Diagnostic testing, Therapeutic intervention (Haily Diaz PA-C) Activity Recommendations Activity Limitations: resume your previous activity . (Haily Diaz PA-C) Instructions / Follow-Up Instructions / Follow-Up New/changed medications: 1. Captopril 25 mg by mouth three times per day 2. Calcium acetate 2,001 mg by mouth three times per day 3. Toprol XL 75 mg by mouth once daily Resume all other regular home medications as prescribed Dialysis tomorrow (11/20) in [place] as scheduled Please follow-up with your PCP within 5-7 days Please follow-up/keep all of your subspecialty appointments (Haily Diaz PA-C) Current Hospital Diet Patient's current hospital diet: Diabetes Type 2 Diet, Renal Diet (Haily Diaz PA-C) Discharge Diet Recommended Diet: Diabetes Type 2 Diet, Renal Diet (Haily Diaz PA-C) Procedures Procedures Performed: 1. Stress echocardiogram 2. CXR (Haily Diaz PA-C) Pending Studies Studies pending at discharge: no (Haily Diaz PA-C) Laboratory Results Last 24 Hours Test 11/18/16 15:48 11/18/16 20:18 11/19/16 06:19 11/19/16 06:36 Bedside Glucose 84 mg/dl 138 mg/dl 77 mg/dl White Blood Count 4.86 K/uL Red Blood Count 4.23 M/uL Hemoglobin 12.2 g/dL Hematocrit 35.6 % Mean Corpuscular Volume 84.2 fL Mean Corpuscular Hemoglobin 28.8 pg Mean Corpuscular Hemoglobin Concent 34.3 g/dl Platelet Count 172 K/uL Mean Platelet Volume 8.8 fL Neutrophils (%) (Auto) 68.9 % Lymphocytes (%) (Auto) 19.8 % Monocytes (%) (Auto) 7.0 % Eosinophils (%) (Auto) 3.7 % Basophils (%) (Auto) 0.4 % Neutrophils # (Auto) 3.35 K/uL Lymphocytes # (Auto) 0.96 K/uL Monocytes # (Auto) 0.34 K/uL Eosinophils # (Auto) 0.18 K/uL Basophils # (Auto) 0.02 K/uL RDW Standard Deviation 40.3 fL RDW Coefficient of Variation 13.3 % Immature Granulocyte % (Auto) 0.2 % Immature Granulocyte # (Auto) 0.01 K/uL Sodium Level 134 mmol/L Potassium Level 4.6 mmol/L Chloride Level 96 mmol/L Carbon Dioxide Level 26 mmol/L Anion Gap 12.0 mmol/L Blood Urea Nitrogen 28 mg/dl Creatinine 7.10 mg/dl Est Creatinine Clear Calc Drug Dose 14.1 ml/min Estimated GFR () 9.3 Estimated GFR (Non- 8.1 BUN/Creatinine Ratio 3.9 Random Glucose 81 mg/dl Calcium Level 7.5 mg/dl Magnesium Level 2.3 mg/dl Test 11/19/16 10:58 Bedside Glucose 82 mg/dl (Haily Diaz ., PA-C) Medical Emergencies . Who to Call and When: Medical Emergencies: If at any time you feel your situation is an emergency, please call 911 immediately. . (Haily Diaz ., BRAULIO-C) Non-Emergent Contact Non-Emergency issues call your: Primary Care Provider Call Non-Emergent contact if: you have a fever, your pain is not controlled, your pain is worsening, your pain is unusual for you, your pain is concerning you, you have any medication questions . (Haily Diaz ., BRAULIO-C) . "Provider Documentation" section prepared by Haily Diaz. (Haily Diaz, BRAULIO-C) VTE Core Measure Inpt VTE Proph given/why not?: Alfonzo Lopez, SCD's (Haily Diaz ., PA-C)
[2016-11-19] MEDS ORDERED: METO25TA3 PO (13:43)
--- NOTE | 2016-11-19 13:52 | Discharge Summary ---
Discharge Summary Admission Date: Nov 15, 2016 at 14:48 Discharge Date: Nov 19, 2016 Discharge Disposition: Home Principal Diagnosis: Chest pain Problems/Secondary Diagnoses: 2. ESRD 3. HTN urgency 4. T2DM Immunizations: Have You Had Influenza Vaccine: N/A Influenza Vaccine Date: Sep 03, 2006 History of Tetanus Vaccine?: No History of Pneumococcal: Unknown Pneumococcal Date: March 03, 2005 History of Hepatitis B Vaccine: No Hepatitis Immunization Date: March 03, 2006 Procedures: CHEST ONE VIEW PORTABLE CLINICAL HISTORY: Atypical chest pain and headache COMPARISON STUDY: January 06, 2012 FINDINGS: The heart is mildly enlarged. There is no overt failure. There is no focal pulmonary consolidation. There are no pleural effusions.[ IMPRESSION: Mild cardiomegaly. No evidence of focal pulmonary consolidation Electronically signed by: Shahab Ba M.D. 11/15/2016 12:12 PM Dictated Date/Time: 11/15/2016 12:11 PM The status of this report is Signed. Draft = Not yet reviewed or approved by Radiologist. Signed = Reviewed and approved by Radiologist. Stress ECHO Interpretation Summary * Name: RICCO GE Study Date: 11/19/2016 10:56 AM BP: 139/92 mmHg * Patient Location: [facility]\\S231\S\1 HR: 55 * : 1965 (M/d/yyyy) Gender: Male Height: 70 in * Age: 50 yrs Ethnicity: PR Weight: 214 lb * Ordering Physician: Jeaneth Jones * Referring Physician: YANE * Performed By: Tona Rogel RDCS * * Reason For Study: CHEST PAIN * BSA: 2.1 m2 * History: CHEST PAIN * -- Conclusions -- * Normal stress echocardiogram at 6.1 METS and a peak heart rate of 48% maximum predicted. * No exercise induced chest pain. * No ECG changes. * Baseline echocardiogram notes normal left ventricular systolic function and moderate left ventricular hypertrophy, Procedure Details * ECHOEX, CPT #[id number] Left Ventricle * There is moderate concentric left ventricular hypertrophy. * Ejection Fraction = 55-60%. * Resting wall motion: Normal. Stress wall motion: Appropriate increase in Left ventricular systolic function and decrease in cavity size. No stress induced segmental wall motion abnormalities. Stress Parameters * The baseline ECG displays normal sinus rhythm. * Stress ECG: No ST changes. No arrhythmias. * The stress portion of this study was personally supervised by the undersigned interpreting physician. * Rest heart rate was '55' BPM. * Rest blood pressure was '139/92' * Maximum heart rate achieved was 82 bpm. * Maximum heart rate was 48 % of maximum age-predicted heart rate. * Maximum blood pressure was '143/74' * Total exercise time was '4:19' * Maximum exercise MET level achieved was '6.10' METS * Maximum treadmill speed was '2.5' miles per hour. * Maximum treadmill elevation was '12.00'% grade. * Exercise was terminated due to 'FATIGUE' MMode 2D Measurements and Calculations IVSd 1.5 cm IVSs 1.9 cm LVIDd 4.6 cm LVIDs 3.1 cm LVPWd 1.7 cm LVPWs 2.3 cm IVS/LVPW 0.89 FS 32.9 % EDV(Teich) 96.0 ml ESV(Teich) 37.0 ml EF(Teich) 61.5 % EDV(cubed) 95.6 ml ESV(cubed) 28.9 ml EF(cubed) 69.8 % % IVS thick 24.4 % % LVPW thick 35.2 % LV mass(C)d 315.6 grams LV mass(C)dI 146.9 grams/m\S\2 LV mass(C)s 295.3 grams LV mass(C)sI 137.5 grams/m\S\2 SV(Teich) 59.1 ml SI(Teich) 27.5 ml/m\S\2 SV(cubed) 66.8 ml SI(cubed) 31.1 ml/m\S\2 LVAd ap4 34.8 cm\S\2 LVLd ap4 9.2 cm EDV(MOD-sp4) 111.5 ml EDV(sp4-el) 112.1 ml LVAs ap4 20.6 cm\S\2 LVLs ap4 7.7 cm ESV(MOD-sp4) 54.3 ml ESV(sp4-el) 46.7 ml EF(MOD-sp4) 51.3 % EF(sp4-el) 58.3 % SV(MOD-sp4) 57.2 ml SI(MOD-sp4) 26.6 ml/m\S\2 SV(sp4-el) 65.3 ml SI(sp4-el) 30.4 ml/m\S\2 Created: Initialized: 11/19/16; 1245 <Electronically signed by Godfrey Poe M.D.> Signed: 11/19/16 1338 Godfrey Poe M.D. The status of this report is Signed. Draft = Not yet reviewed or approved by Nanny Caregiver. Signed = Reviewed and approved by Nanny Caregiver. Consultations: Cardiology- Dr. Jaimes Nephrology- Dr. Loomis and Dr. Hayward (Haily Diaz, PA-C) Medication Reconciliation New Medications: Metoprolol Succ (Toprol Xl) (Toprol-Xl) 25 Mg Tabcr 75 MG PO DAILY for 30 Days, #90 TAB Calcium Acetate (Phoslo 667 Mg) 667 Mg Cap 2001 MG PO TIDM for 30 Days, #90 CAP Captopril (Captopril) 25 Mg Tab 25 MG PO TID for 30 Days, #90 TAB Continued Medications: Aspirin (Aspirin Ec) 81 Mg Tab 81 MG PO DAILY Cinacalcet (Sensipar) 30 Mg Tab 30 MG PO QPM, TAB Docusate Sodium (Colace) 100 Mg Cap 100 MG PO BID PRN for Constipation for 30 Days, #60 CAP Multivitamin (Multivitamin) Tab 1 TAB PO QAM Sevelamer Carbonate (Renvela) 800 Mg Tab 4 CAP PO TIDM for 90 Days, TAB 3 Refills TAKES 4 ADDITIONAL TABLETS WITH ANY SNACKS. Discontinued Medications: Metoprolol Succinate (Metoprolol Succinate ER) 100 Mg Tabcr 100 MG PO QPM, #90 Metoprolol Tartrate (Lopressor) (Lopressor) 50 Mg Tab 50 MG PO DAILY Referrals At Discharge Follow up Referrals: Family Practice Referral - Within 1 Week with Yoav Hayward M.D. Discharge Exam Review of Systems: Constitutional: No chills, No fatigue, No fever, No sweats, No weakness Respiratory: No cough, No hemoptysis, No shortness of breath Cardiovascular: No chest pain, No edema, No palpitations Abdomen: No constipation, No diarrhea, No nausea, No pain, No vomiting Musculoskeletal: No calf pain, No joint pain, No muscle pain, No swelling Neurologic: No numbness/tingling, No weakness Psychiatric: No anxiety, No depression symptoms Hematologic / Lymphatic: No abnormal bleeding/bruising Integumentary: No itch, No new/changing skin lesions, No rash Physical Exam: General Appearance: no apparent distress Eyes: normal inspection, PERRL ENT: hearing grossly normal Neck: supple Respiratory/Chest: lungs clear, no respiratory distress, no accessory muscle use Cardiovascular: regular rate, rhythm Abdomen / GI: normal bowel sounds, non tender, soft Extremities: no calf tenderness, no pedal edema Neurologic/Psychiatric: alert, normal mood/affect, oriented x 3 Skin: normal color, warm/dry, no rash (Haily Diaz, AUSTEN) Hospital Course HPI: This patient is a 50-year-old male that presents emergency department with complaints of midsternal chest pain radiating to the left side of his face and jaw that started during dialysis today. The patient has a history of end-stage renal disease, failed renal transplant 2007. He is typically dialyzed Friday, Friday and Friday. The patient completed all but a half-hour of the dialysis when the pain started. He denies any diaphoresis. No shortness of breath at the time. No dizziness. No heart palpitations. The patient denies any history of coronary artery disease. He has had a normal stress test, but that was many years ago. Initial workup in the emergency department shows a negative troponin. EKG shows sinus bradycardia with a first-degree AV block. No acute signs of ischemia. The patient was noted to be hypertensive. He admits that this is been going on for the last few weeks. His dose of metoprolol was recently increased, but he has not yet picked up the prescription. The patient does say that he has not been feeling well all week. He had a few episodes of vomiting and diarrhea a few days back. He is still having diarrhea , however the nausea and vomiting has resolved. He denies any abdominal pain. No sick contacts. No recent travel. He does admit to feeling on and off hot and cold with mild body aches. This is been also going on for approximately 1 week. He has a mild cough, however this is chronic. Apparently, the patient does have a history of chronic diarrhea. Chest pain workup sounds like typical anginal symptoms for the last 2 years as per history: - Negative enzymes and no ischemia on ECGs - Stress ECHO on 11/19- unremarkable. Spoke with cardiology regarding only reaching HR 48% max of predicted. Per cardiology likely due to beta ginny, no changes identified on stress ECHO, patient is OK for discharge. - Continue ASA - Appreciate Cardiology recommendations Hypertensive urgency- much improved: - Renal Added captopril 25mg po tid and renin level pending - Dialysis to reduce plasma volume - Metoprolol 25mg po tid and-- >switch to Toprol XL 75mg daily at discharge End-stage renal disease-continue with dialysis additional treatment per Dr. Hayward: - Sensipar 60 mg daily, PhosLo 2001 mg 3 times daily with meals Diabetes mellitus type II- no longer on glipizide 2.5 mg daily at home for hypoglycemia--> stop this here, continue insulin sliding scale DVT prophylaxis: -TEDS, SCDs CODE STATUS: -LEVEL I FULL CODE Dispo: Discharge to home Total Time Spent: Greater than 30 minutes This includes examination of the patient, discharge planning, medication reconciliation, and communication with other providers. (Haily Diaz, FRANCISCOC) Discharge Instructions Please refer to the electronic Patient Visit Report (Discharge Instructions) for additional information. (Haily Diaz PA-C) Follow-Up Dialysis on 11/20 in [place] as scheduled Please follow-up with your PCP within 5-7 days Please follow-up/keep all of your subspecialty appointments (Haily Diaz PA-C) Additional Copies To Yoav Hayward M.D. Reviewed: Pt Seen/Exam by RAFAEL Scales Notes, Labs, RAD (Jeaneth Jones MD) History Physician Typing Bookkeeper Supervision Note: I interviewed and examined the patient. Discussed with BRAULIO Gan and agree with findings and plan as documented in the note. Any exceptions or clarifications are listed here: Doing very well, no more CP since admission. No significant events on telemetry , stress ECHO normal. BPs much better controlled. Vitals reviewed, NAD RRR no mgr nl S1S2 CTAB no wcr Abd soft NT ND +BS Ext no edema A/P: 50 yo male with ESRD on HD with hypertensive urgency and chest pain. Likely related to acclerated HTN from fluid overload and possible noncompliance with BP meds? There was no evidence of ischemia this admission. F/u with PCP within 1 week. Documented By: Jeaneth Jones (Jeaneth Jones MD) Assessment/Plan 50-M presents with chest pain and hypertensive urgency, has history of esrd on dialysis, diabetes mellitus type II, hypertension. Chest pain workup sounds like typical anginal symptoms for the last 2 years as per history: negative enzymes and no ischemia on ECGs -will stress with Stress ECHO tomorrow for risk stratification -continue ASA -Appreciate Cardiology recommendations -d/c to home if stress normal tomorrow Hypertensive urgency- much improved -Renal added captopril 25mg po tid and renin level pending - dialysis to reduce plasma volume -continue metoprolol 25mg po tid and can switch to Toprol XL 100mg daily for ease of administration at home End-stage renal disease-continue with dialysis additional treatment per Dr. Hayward - Sensipar 60 mg daily, PhosLo 2001 mg 3 times daily with meals Diabetes mellitus type II- no longer on glipizide 2.5 mg daily at home for hypoglycemia--> stop this here, continue insulin sliding scale DVT prophylaxis -TEDS, SCDs CODE STATUS -LEVEL I FULL CODE (Jeaneth Jones MD)
[2016-11-19 16:00] VITALS: PULSE 62
[2017-04-22] MEDS ORDERED: OXYC-57 PO (15:26)
== END 2016-11-19 18:00 | disposition home or self-care (01) ==
LOC: ENRESERVDT → ENRESERVTM → EDBD 10:53 → C.EDB 10:55 → C.2T 14:48 → EDBEDREQ 15:18
PROVIDERS: ADMIT Internal Medicine; ATTEND Family Medicine
DX: R07.9 Chest pain, unspecified (principal); I16.0 Hypertensive urgency; N18.6 End stage renal disease; E11.9 Type 2 diabetes mellitus without complications; I44.0 Atrioventricular block, first degree; I12.0 Hypertensive chronic kidney disease with stage 5 chronic kidney disease or end stage renal disease; Z79.899 Other long term (current) drug therapy; Z79.82 Long term (current) use of aspirin; Z91.14 Patient's other noncompliance with medication regimen; Z94.0 Kidney transplant status; Z99.2 Dependence on renal dialysis; Z85.820 Personal history of malignant melanoma of skin; Z82.49 Family history of ischemic heart disease and other diseases of the circulatory system; Z83.3 Family history of diabetes mellitus

== ENCOUNTER 2017-04-17 11:26 | Day surgery (SDC) | payer OTHER ==
[~2017-04-17] VITALS: Ht 175.3 cm; Wt 91.0 kg
[~2017-04-17 11:26] MED LIST changes: -ASPCH81 PO; +ASPI81TA28 PO; +CAPT25TA5 PO; +CEFAZOLIN 1000MG/55 ML D5W IV SCH; +CEFAZOLIN 2000 MG/60 ML D5W IV SCH; +D5W AND 1/4NSS 1000 ML IV SCH; -METO50TA16 PO; +PHS667 PO
[2017-04-17] MEDS ORDERED: METO25TA3 PO (11:55)
[2017-04-17 11:57] VITALS: BP 106/63; PULSE 85; TEMP 36.5; O2SAT 94; Ht 175.3 cm; Wt 91.0 kg
[2017-04-17] MEDS ORDERED: FENTANYL CITRATE INJ 50 MCG/1 ML 2 ML VIAL ONE (12:29)
[2017-04-17] MEDS ORDERED: MIDAZOLAM HCL 1 MG/ML 2ML VIAL ONE (12:29)
[2017-04-17 12:33] VITALS: BP 106/63; PULSE 85; TEMP 36.5; O2SAT 94
--- NOTE | 2017-04-17 12:52 | Procedure Note ---
Pre-Mod Sedation Assessment General Date of Moderate Sedation: Apr 17, 2017. Vital Signs: Vital Signs Past 12 Hours Date Time Temp Pulse Resp B/P (MAP) Pulse Ox O2 Delivery O2 Flow Rate FiO2 04/17/17 12:33 36.5 85 20 106/63 94 Room Air 04/17/17 11:57 36.5 85 20 106/63 (77) 94 Room Air Pre-Sedation Airway Assessment Oral Cavity: WNL Short Thick Neck: No Hx of Sleep Apnea: No Smoking Status: Never Smoker Mallampati Classification: Class I ASA Classification: Class III Notes The planned sedation has been discussed with the patient and consent obtained. I have identified the patient, determined the appropriateness of sedation and have assessed the patient immediately prior to the procedure. All medicine(s) and interventions are by my order.
--- NOTE | 2017-04-17 12:52 | History and Physical ---
History & Physical Date Apr 17, 2017. Chief Complaint Malfunctioning left upper arm fistula History of Present Illness The patient is a 51 year old male who had a left upper arm fistula placed in mid . He had been having decreasing flows at dialysis. He is here for a fistulogram with possible intervention. Vitals Vital Signs Past 12 Hours Date Time Temp Pulse Resp B/P (MAP) Pulse Ox O2 Delivery O2 Flow Rate FiO2 04/17/17 12:33 36.5 85 20 106/63 94 Room Air 04/17/17 11:57 36.5 85 20 106/63 (77) 94 Room Air Allergies Coded Allergies: Adhesives (Verified Allergy, Mild, 04/17/17) Aspirin (Verified Adverse Reaction, Mild, NOSE BLEED, 04/17/17) Home Medications Scheduled Aspirin (Aspirin Ec), 81 MG PO DAILY Calcium Acetate (Phoslo 667 Mg), 2,001 MG PO TIDM Captopril (Captopril), 25 MG PO TID Cinacalcet (Sensipar), 60 MG PO QPM Metoprolol Succ (Toprol Xl) (Toprol-Xl), 25 MG PO DAILY Multivitamin (Multivitamin), 1 TAB PO QAM Scheduled PRN Docusate Sodium (Colace), 100 MG PO BID PRN for Constipation Problem List Medical Problems: (1) Accelerated hypertension (2) Chest pain (3) Diab Wendy Wo Compl, Type Ii Or Unspec Type, Not Uncntrld (4) Diverticulitis Colon (W/O Ment Of Hemorrhage) (5) Diverticulosis Colon (W/O Ment Of Hemorrhage) (6) Encounter for hemodialysis for ESRD (7) ESRD on hemodialysis (8) Hematuria (9) HTN (hypertension) (10) Hx-Malig Skin Melanoma (11) Kidney disease (12) Kidney Transplant Failure (13) Left flank pain (14) Renal Dialysis Status (15) UTI (urinary tract infection) Surgical Problems: (1) H/O kidney transplant (2) History of bowel resection Surgical / Medical History Hx Cardiac Surgery: No Hx Abdominal Surgery: Yes (DIVERTICULITIS) Hx Cancer Surgery: Yes (CANCER SPOT REMOVED FROM BACK) Hx Thoracic Surgery: No Hx Orthopedic: No Hx Urinary Tract Surgery: No HX Other Surgery: Yes (KIDNEY TRANSPLANT) Past Medical/Surgical History: Diabetes, Hypertension, Kidney Disease Family History Diabetes mellitus FH: diabetes mellitus FH: heart disease Hypertension Kidney disease Social History Smoking Status: Never Smoker Hx Tobacco Use In Past Year?: No Hx Alcohol Use - Type & Amnt: No Hx Substance Use -Type & Amnt: No Review of Systems Constitutional: No chills, No diaphoresis, No fever, No malaise, No weakness, No weight gain, No weight loss, No sweats, No fatigue, No problem reported Respiratory: No cough, No cyanosis, No MARTE, No hemoptysis, No orthopnea, No PND , No short of breath, No sputum production, No stridor, No wheezing, No dyspnea , No problem reported Cardiovascular: No chest pain, No chest tightness, No chest pressure, No palpitations, No syncope, No diaphoresis, No edema, No intermittent claudication , No orthopnea, No cyanosis, No mumur, No lightheadedness, No paroxysmal nocturnal dyspnea, No problem reported Gastrointestinal: No abdominal pain, No constipation, No diarrhea, No nausea, No vomiting, No anorexia, No appetite changes, No belching, No flatulence, No food intolerance, No hematemesis, No hemorrhoids, No hematochezia, No stool changes, No heartburn, No indigestion, No dysphagia, No rectal bleeding, No problem reported Musculoskeletal: No back pain, No gout, No joint pain, No joint swelling, No muscle pain, No muscle stiffness, No muscle weakness, No neck pain, No problem reported Neurologic: No dizziness, No weakness, No headache, No lethargy, No numbness, No paresthesia, No pre-existing deficit, No seizures, No tics, No tingling, No tremors, No vertigo, No memory loss, No LOC, No problem reported Physical Exam Constitutional: General Apperance: heathly-appearing, well-nourished, well-developed Level of Distress: NAD Ambulation: ambulating normally Psychiatric: Mental Status: active & alert, normal mood, normal affect Orientation: oriented except where noted, to time, to place, to person Memory: recent memory normal, remote memory normal Neck: supple Lungs: Auscultation: breath sounds normal Cardiovascular: Heart Auscultation: RRR Peripheral Pulses: Brachial Pulses: normal on the left, normal on the right Abdomen: Inspection & Palpation: soft Musculoskeletal: normal Extremities: Upper Right: no cyanosis, no edema, no varicosities, no palpable cord, no clubbing, no ulcers, no mottling Upper Left: no cyanosis, no edema, no varicosities, no palpable cord, no clubbing, no ulcers, no mottling, pertinent finding (decrease thrill in fistula , proximal portion firm to palpation) Neurologic: Cranial Nerves: grossly intact Sensation: grossly intact Assessment and Plan Imp: Malfunctioning left upper arm fistula Plan: Patient for a fistulogram with possible intervention. I have discussed the risks options and benefits of the procedure with the patient. The patient understands the risks options and benefits and agrees to the procedure.
[2017-04-17] MEDS ORDERED: LIDOCAINE HCL 1% 20 ML VIAL INJ ONE (13:22)
[2017-04-17] MEDS ORDERED: OPTIRAY 300 IV ONE (13:45)
--- NOTE | 2017-04-17 13:52 | [facility] Post Operative Brief Note ---
Immediate Operative Summary Operative Date Apr 17, 2017. Pre-Operative Diagnosis malfunctioning fistula Post-Operative Diagnosis same Procedure(s) Performed Fistulogram Surgeon Dr. Andrew [employer] Professor Surgeon(s) none Estimated Blood Loss 0 Findings calcified stenosis of proximal anastomosis Specimens none Anesthesia Local Complication(s) None Disposition
--- NOTE | 2017-04-17 13:55 | Discharge Instructions ---
Discharge Instructions Date of Service Apr 17, 2017. Visit Reason for Visit: End Stage Renal Disease -On Hemodialysis Discharge Discharge Diagnosis / Problem: Malfunctioning left upper arm fistula Discharge Goals Goal(s): Diagnostic testing Activity Recommendations Activity Limitations: resume your previous activity Anesthesia . Post Anesthesia Instructions: If you have had General Anesthesia or IV Sedation: * Do not drive today. * Resume driving when surgeon permits. * Do not make important decisions or sign legal documents today. * Call surgeon for: 1. Temperature elevations greater than 101 degrees F. 2. Uncontrollable pain. 3. Excessive bleeding. 4. Persistent nausea and vomiting. 5. Medication intolerance (nausea, vomiting or rash). * For nausea and vomiting use only clear liquids such as: tea, soda, bouillon until nausea subsides, then gradually increase diet as tolerated. * If you have any concerns or questions, call your surgeon's office. If physician is unavailable and it is an emergency, call 911 or go to the nearest emergency room. . Instructions / Follow-Up Instructions / Follow-Up Will call with surgery time SPECIAL CARE INSTRUCTIONS: Medications: * Continue to take your medications as directed. If you have been given a prescription for Plavix, please fill it immediately and take as directed. Incision Care: * Your puncture site may have some bruising and minor swelling for about one week. * You will have a small dressing covering your puncture site. You may remove the dressing after 24 hours and shower. You may let the warm soapy water run over it, but be sure to dry the puncture site well and keep it dry. * DO NOT IMMERSE THE INCISION IN A TUB/POOL/etc. UNTIL HEALED. * Puncture sites should be kept covered with a band-aid until it begins to heal. Restrictions: * Depending on whether you leg or arm was punctured to access the arteries, you will be required to lay flat, hold your arm still, or both, for about 4 hours after the procedure to prevent bleeding. * Limit your activity for the first 48 hours. You may walk and go up and down steps. Avoid excessive bending or movement at the puncture site. Possible Complications: * Excessive Swelling - after blood flow is improved you may notice increased swelling in the lower legs. This is a normal response. This usually depends on the amount of blockages in the leg, how long they have been there prior to your procedure and how much blood flow was restored. Elevating your legs will help to improve this. Please notify our office ([phone] ) if the swelling does not go away after lying in bed overnight. * Infection/Drainage/Bleeding - Drainage or bleeding from the puncture site should be minimal. If you have excessive bleeding or drainage, call our office ([phone]) right away. * Pain - You may experience some mild pain or soreness at your puncture site. If your pain does not improve, please contact our office ([phone]). Call your doctor and seek emergent treatment if you develop: * Temperature above 101 degrees * Any fever or chills * Any redness or purulent drainage from the puncture site * Any new dusky/blue colored toes or feet with coolness or sharp or aching pain. SKIN IRRITATION: * You may experience some redness and/or swelling in the area where radiation was administered. If any skin irritation occurs, please contact your family physician. FOLLOW UP VISIT: Keep any scheduled doctor appointments. Diet Recommendations Recommended Home Diet: resume previous diet Procedures Procedures Performed: Fistulogram Pending Studies Studies pending at discharge: no Medical Emergencies . Who to Call and When: Medical Emergencies: If at any time you feel your situation is an emergency, please call 911 immediately. . Non-Emergent Contact Non-Emergency issues call your: Surgeon . . "Provider Documentation" section prepared by Jamshid Andrew. .
[2017-04-17 14:00] VITALS: BP 112/71; PULSE 70; TEMP 36.4; O2SAT 97
--- NOTE | 2017-04-17 14:02 | [facility] Operative Report ---
Operative Report Operative Date Apr 17, 2017. Pre-Operative Diagnosis malfunctioning fistula Post-Operative Diagnosis same Procedure(s) Performed Fistulogram Surgeon Dr. Andrew Fountain Helper Surgeon(s) none Estimated Blood Loss 0 Findings stenotic calcified proximal fistula Specimens none Anesthesia Local Complication(s) None Disposition Indications This patient is a 51-year-old white male with a left upper arm fistula which was placed in 2005. It has developed malfunction in the fistula with decreased flow rates. He is here for a fistulogram with possible intervention. He understood the risks options and benefits and agreed to go ahead with this procedure. Description of Procedure Patient was placed in supine position. The left arm was prepped and draped in a sterile manner. Local anesthetic was administered. A puncture was made on the proximal portion of the left upper arm fistula using micropuncture technique. Micropuncture catheter was inserted. A fistulogram was performed. 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 There is no stenosis seen from the puncture site up through the cephalic vein. There is a question of a significant narrowing of cephalic vein at this cephalic brachial junction. The central veins are patent with good flow through these vessels. Compression was then done of the fistula and a retrograde injection was made of the proximal anastomosis. Proximal anastomosis was patent however the flow was very sluggish to the rest of the fistula. There appeared to be a tight stenosis within a heavily calcified area just distal to the arterial anastomosis. At this point we decided intervention should not be done and that an operative approach should be undertaken. The sheath was then pulled, pressure was applied and adequate hemostasis was obtained. Patient left the angio suite in good condition and tolerated the procedure well. I attest to the content of the Intraoperative Record and any orders documented therein. Any exceptions are noted below.
[2017-04-17 14:28] VITALS: BP 119/84; PULSE 78; TEMP 36.4; O2SAT 100
== END 2017-04-17 14:30 | disposition home or self-care (01) ==
LOC: C.ACU 11:26
PROVIDERS: ATTEND Surgery Vascular Surgery
DX: T82.590A Other mechanical complication of surgically created arteriovenous fistula, initial encounter (principal); Y83.2 Surgical operation with anastomosis, bypass or graft as the cause of abnormal reaction of the patient, or of later complication, without mention of misadventure at the time of the procedure; Z79.82 Long term (current) use of aspirin; Z94.0 Kidney transplant status; Z90.49 Acquired absence of other specified parts of digestive tract; E11.9 Type 2 diabetes mellitus without complications; I10 Essential (primary) hypertension; N18.9 Chronic kidney disease, unspecified; Z83.3 Family history of diabetes mellitus; Z82.49 Family history of ischemic heart disease and other diseases of the circulatory system; Z84.1 Family history of disorders of kidney and ureter

== ENCOUNTER 2017-04-22 09:24 | Day surgery (SDC) | payer OTHER ==
--- NOTE | 2017-04-22 06:11 | History and Physical ---
History & Physical Date of Service Apr 22, 2017. History & Physical Chief Complaint Malfunctioning left upper arm fistula History of Present Illness The patient is a 51 year old male who had a left upper arm fistula placed in mid . He had been having decreasing flows at dialysis. He is here for a fistulogram with possible intervention. Allergies Coded Allergies: Adhesives (Verified Allergy, Mild, 04/17/17) Aspirin (Verified Adverse Reaction, Mild, NOSE BLEED, 04/17/17) Home Medications Scheduled Aspirin (Aspirin Ec), 81 MG PO DAILY Calcium Acetate (Phoslo 667 Mg), 2,001 MG PO TIDM Captopril (Captopril), 25 MG PO TID Cinacalcet (Sensipar), 60 MG PO QPM Metoprolol Succ (Toprol Xl) (Toprol-Xl), 25 MG PO DAILY Multivitamin (Multivitamin), 1 TAB PO QAM Scheduled PRN Docusate Sodium (Colace), 100 MG PO BID PRN for Constipation Problem List Medical Problems: (1) Accelerated hypertension (2) Chest pain (3) Diab Wendy Wo Compl, Type Ii Or Unspec Type, Not Uncntrld (4) Diverticulitis Colon (W/O Ment Of Hemorrhage) (5) Diverticulosis Colon (W/O Ment Of Hemorrhage) (6) Encounter for hemodialysis for ESRD (7) ESRD on hemodialysis (8) Hematuria (9) HTN (hypertension) (10) Hx-Malig Skin Melanoma (11) Kidney disease (12) Kidney Transplant Failure (13) Left flank pain (14) Renal Dialysis Status (15) UTI (urinary tract infection) Surgical Problems: (1) H/O kidney transplant (2) History of bowel resection Surgical / Medical History Hx Cardiac Surgery: No Hx Abdominal Surgery: Yes (DIVERTICULITIS) Hx Cancer Surgery: Yes (CANCER SPOT REMOVED FROM BACK) Hx Thoracic Surgery: No Hx Orthopedic: No Hx Urinary Tract Surgery: No HX Other Surgery: Yes (KIDNEY TRANSPLANT) Past Medical/Surgical History: Diabetes, Hypertension, Kidney Disease Family History Diabetes mellitus FH: diabetes mellitus FH: heart disease Hypertension Kidney disease Social History Smoking Status: Never Smoker Hx Tobacco Use In Past Year?: No Hx Alcohol Use - Type & Amnt: No Hx Substance Use -Type & Amnt: No Review of System Constitutional: No chills, No diaphoresis, No fever, No malaise, No weakness, No weight gain, No weight loss, No sweats, No fatigue, No problem reported Respiratory: No cough, No cyanosis, No MARTE, No hemoptysis, No orthopnea, No PND , No short of breath, No sputum production, No stridor, No wheezing, No dyspnea , No problem reported Cardiovascular: No chest pain, No chest tightness, No chest pressure, No palpitations, No syncope, No diaphoresis, No edema, No intermittent claudication , No orthopnea, No cyanosis, No mumur, No lightheadedness, No paroxysmal nocturnal dyspnea, No problem reported Gastrointestinal: No abdominal pain, No constipation, No diarrhea, No nausea, No vomiting, No anorexia, No appetite changes, No belching, No flatulence, No food intolerance, No hematemesis, No hemorrhoids, No hematochezia, No stool changes, No heartburn, No indigestion, No dysphagia, No rectal bleeding, No problem reported Musculoskeletal: No back pain, No gout, No joint pain, No joint swelling, No muscle pain, No muscle stiffness, No muscle weakness, No neck pain, No problem reported Neurologic: No dizziness, No weakness, No headache, No lethargy, No numbness, No paresthesia, No pre-existing deficit, No seizures, No tics, No tingling, No tremors, No vertigo, No memory loss, No LOC, No problem reported Physical Exam Constitutional: General Apperance: heathly-appearing, well-nourished, well-developed Level of Distress: NAD Ambulation: ambulating normally Psychiatric: Mental Status: active & alert, normal mood, normal affect Orientation: oriented except where noted, to time, to place, to person Memory: recent memory normal, remote memory normal Neck: supple Lungs: Auscultation: breath sounds normal Cardiovascular: Heart Auscultation: RRR Peripheral Pulses: Brachial Pulses: normal on the left, normal on the right Abdomen: Inspection & Palpation: soft Musculoskeletal: normal Extremities: Upper Right: no cyanosis, no edema, no varicosities, no palpable cord, no clubbing, no ulcers, no mottling Upper Left: no cyanosis, no edema, no varicosities, no palpable cord, no clubbing, no ulcers, no mottling, pertinent finding (decrease thrill in fistula , proximal portion firm to palpation) Neurologic: Cranial Nerves: grossly intact Sensation: grossly intact Assessment and Plan Imp: Malfunctioning left upper arm fistula Plan: Patient admitted for a revision of his left upper arm fistula. I have discussed the risks options and benefits of the procedure with the patient. The patient understands the risks options and benefits and agrees to the procedure.
[~2017-04-22 09:24] MED LIST changes: -CEFAZOLIN 1000MG/55 ML D5W IV SCH; +CEFAZOLIN 2000 MG/60 ML D5W 60 ML IV SCH; -CEFAZOLIN 2000 MG/60 ML D5W IV SCH; -D5W AND 1/4NSS 1000 ML IV SCH; +LACTATED RINGER'S 1000ML 1,000 ML IV SCH; +METO25TA3 PO; -SEVE800T7 PO
--- NOTE | 2017-04-22 10:07 | History & Physical Bridge Note ---
H&P Re-Evaluation Bridge Note: I have examined the patient, reviewed the History & Physical and in the interval since the performance of the History & Physical I have noted the following changes of clinical significance: No changes noted
[2017-04-22 10:30] VITALS: BP 115/77; PULSE 76; TEMP 36.7; O2SAT 96; Wt 106.6 kg
[2017-04-22] MEDS: SODIUM CHLORIDE 0.9% 1000ML 1,000 ML IV SCH ×2 (10:40→10:44)
[2017-04-22 11:07] LABS: BLOOD UREA NITROGEN 49 mg/dl (7-18); BUN/CREATININE RATIO 4.5 (10-20); CALCIUM 10.3 mg/dl (8.5-10.1); CARBON DIOXIDE 30 mmol/L (21-32); CHLORIDE 96 mmol/L (98-107); GLUCOSE 89 mg/dl (70-99); POTASSIUM 5.8 mmol/L (3.5-5.1); SODIUM 135 mmol/L (136-145)
[2017-04-22] MEDS ORDERED: GELATIN SPONGE 12-7MM ONE (11:33)
[2017-04-22] MEDS ORDERED: THROMBIN FOR SOLN 20000 UNIT KIT ONE (11:33)
[2017-04-22] MEDS ORDERED: BUPIVACAINE/EPINEPHRINE 0.5% MPF 1:200,000 10 ML VIAL ONE ×2 (11:34→11:35)
[2017-04-22] MEDS ORDERED: HEPARIN SOD (PORCINE) 1000 UNIT/ML 10 ML VIAL ONE (11:34)
[2017-04-22] MEDS ORDERED: LIDOCAINE HCL 1% 20 ML VIAL ONE ×2 (11:34→11:35)
[2017-04-22] MEDS ORDERED: FENTANYL CITRATE INJ 50 MCG/1 ML 2 ML VIAL IV PRN (12:15)
[2017-04-22] MEDS ORDERED: ATROPINE SULFATE 0.1 MG/ML 5ML SYR IV PRN (12:15)
[2017-04-22] MEDS ORDERED: ONDANSETRON INJ 2 MG/ML 2 ML VIAL IV PRN (12:15)
[2017-04-22] MEDS ORDERED: PROPOFOL IV EMULSION 10 MG/ML 20 ML VIAL IV ONE ×2 (13:07→14:45)
[2017-04-22] MEDS ORDERED: LIDOCAINE HCL 2% 2 ML VIAL (20MG/ML) ONE (13:07)
[2017-04-22] MEDS ORDERED: MIDAZOLAM HCL 1 MG/ML 2ML VIAL ONE (13:08)
[2017-04-22] MEDS ORDERED: FENTANYL CITRATE INJ 50 MCG/1 ML 2 ML VIAL ONE (13:08)
[2017-04-22] MEDS ORDERED: WATER, STERILE FOR INJ 10 ML VIAL ONE (14:44)
--- NOTE | 2017-04-22 15:02 | [facility] Post Operative Brief Note ---
Immediate Operative Summary Operative Date Apr 22, 2017. Pre-Operative Diagnosis Malfunctioning Left Upper Arm Fistula Post-Operative Diagnosis Same as preoperative diagnosis Procedure(s) Performed Revision Left Upper Extremity Arteriovenous Fistula, with interposition gortex graft and Balloon Angioplasty of cephalic vein Surgeon Dr Andrew Timber Surveyor Surgeon(s) Lilibeth Aldrich PA-C Estimated Blood Loss 100ml Findings good thrill Specimens None per surgeon Anesthesia MAC Complication(s) None Disposition Recovery Room / PACU
--- NOTE | 2017-04-22 15:05 | Discharge Instructions ---
Discharge Instructions Date of Service Apr 22, 2017. Visit Reason for Visit: End Stage Renal Disease -On Hemodialysis Discharge Discharge Diagnosis / Problem: Malfunctioning left arm arteriovenous fistula Discharge Goals Goal(s): Therapeutic intervention Activity Recommendations Activity Limitations: per Instructions/Follow-up section Lifting Limitations: no more than 25 pounds Exercise/Sports Limitations: as tolerated Shower/Bathe: tomorrow Driving or Machine Use: resume 1 day after discharge Anesthesia . Post Anesthesia Instructions: If you have had General Anesthesia or IV Sedation: * Do not drive today. * Resume driving when surgeon permits. * Do not make important decisions or sign legal documents today. * Call surgeon for: 1. Temperature elevations greater than 101 degrees F. 2. Uncontrollable pain. 3. Excessive bleeding. 4. Persistent nausea and vomiting. 5. Medication intolerance (nausea, vomiting or rash). * For nausea and vomiting use only clear liquids such as: tea, soda, bouillon until nausea subsides, then gradually increase diet as tolerated. * If you have any concerns or questions, call your surgeon's office. If physician is unavailable and it is an emergency, call 911 or go to the nearest emergency room. . Instructions / Follow-Up Instructions / Follow-Up Call [phone] to schedule a follow up appointment if one not already scheduled. ACTIVITY RECOMMENDATIONS: See Above SPECIAL CARE INSTRUCTIONS: Call your doctor if: * Temperature above 101 degrees * Pain not relieved by pain medicine ordered * There is increased drainage or redness from any incision * You have any unanswered questions or concerns. Diet Recommendations Recommended Home Diet: resume previous diet Procedures Procedures Performed: Revision Left Upper Extremity Arteriovenous Fistula, with interposition gortex graft and Balloon Angioplasty of cephalic vein Pending Studies Studies pending at discharge: no Medical Emergencies . Who to Call and When: Medical Emergencies: If at any time you feel your situation is an emergency, please call 911 immediately. . Non-Emergent Contact Non-Emergency issues call your: Surgeon . . "Provider Documentation" section prepared by Jamshid Andrew. .
[2017-04-22] MEDS ORDERED: SURGICEL ABSORB HEMOSTAT 2IN X 14IN TOP ONE (15:11)
[2017-04-22] MEDS ORDERED: IODIXANOL (VISIPAQUE) 270 MG/ML 50ML IV ONE (15:13)
--- NOTE | 2017-04-22 15:25 | [facility] Operative Report ---
Operative Report Operative Date Apr 22, 2017. Pre-Operative Diagnosis Malfunctioning Left Upper Arm Fistula Post-Operative Diagnosis Same as preoperative diagnosis Procedure(s) Performed Revision Left Upper Extremity Arteriovenous Fistula, with interposition gortex graft and Balloon Angioplasty of cephalic vein Surgeon Dr Andrew Retail Loss Prevention Specialist Surgeon(s) Lilibeth Aldrich PA-C Estimated Blood Loss 100ml Findings good thrill Specimens None per surgeon Anesthesia MAC Complication(s) None Disposition Recovery Room / PACU Indications This this patient's 51-year-old male with a left arm AV fistula. He was found to have severe calcifications and poor flows through the proximal portion of the fistula just beyond the anastomosis. Revision of the fistula was recommended. He was also found to have a cephalic vein stenosis. This will all be also be taking care of the time of his revision. He understood the risks options benefits and agrees to go ahead with the procedure. Description of Procedure The patient was taken to the operating room and placed in the supine position. The left arm was then prepped and draped in a sterile manner. Local anesthetic was administered. A transverse incision was made just above the antecubital fossa over the top of the arteriovenous fistula. Dissection was carried down through subcutaneious tissure and the proximal fistula was dissected free. This was taken down to the arterial anastomosis. The brachial artery was freed up proximal and distal to the anastomosis. The proximal fistula itself was heavily calcified. This extended for approximately 8-10 cm. At that point the vein was soft and without any calcifications present. It was decided to replace this section with a [place] graft. The brachial artery was clamped proximal distally. The fistula was clamped beyond the calcification. The fistula was transected distally just beyond the calcification. The proximal part of the fistula was transected just beyond the anastomosis. The vein itself was soft without calcifications right at the anastomotic site. An 8 mm [place]-David graft was brought to the operative field. An end is end anastomosis was accomplished between the [place]-David graft and the stump of the fistula at the brachial artery level. This was done with a CV 6 [place]-David suture in the usual vascular fashion. Next the graft was trimmed the appropriate length and an end-to-end anastomosis accomplished between the [place]- David graft and the venous fistula. This again was done with a CV 6 [place]-David suture. Prior to completing the anastomosis back bleeding and fore bleeding was allowed to occur. The final few sutures were placed and securely tied. Clamps were then removed. There was a small bleeding seen at the venous side of the anastomosis. This was controlled with interrupted CV 6 [place]-David suture. Next the graft was cannulated using a micropuncture technique. The micro puncture wire was then inserted and the micropuncture sheath was inserted. Fistulogram showed a severe stenosis at the cephalo brachial junction. An 035 wire was inserted through the micropuncture sheath. Using an angled glide catheter the wire was manipulated through the 2 venous aneurysms and through the the stenotic area of the cephalic vein. The sheath was exchanged to a 6 Ma[place] sheath. An 8x4 balloon was inserted over the wire through the cephalic junction. This was dilated with the 8 mm balloon. Approximately 10% residual stenosis was seen at the end of the procedure. The fistula had a good thrill at that point. The wire and sheath were then removed and the hole in the [place]- David was repaired with a CV 6 [place]-David suture. Adequate hemostasis was noted at that time. There was excellent flow through the fistula and a good thrill. The wound was closed using a running 3-0 Vicryl suture for the subcutaneous layer a running 4-0 subcuticular Vicryl suture and the skin edges. Dermabond was used for dressing. The patient left the operating room in satisfactory condition and tolerated the procedure well. Lilibeth Aldrich Pac assisted due to lack of resident availability and was necessary for prepping, draping, retraction, wound closure defects, subQ and skin closure and was necessary for the case. I attest to the content of the Intraoperative Record and any orders documented therein. Any exceptions are noted below.
[2017-04-22] MEDS ORDERED: OXYC-57 PO (15:26)
--- NOTE | 2017-04-22 15:45 | Progress Note ---
Progress Note Date of Service Apr 22, 2017. Progress Note I assisted Dr Andrew with Marcos Levy' Revision Left Upper Extremity Arteriovenous Fistula, with interposition gortex graft and Balloon Angioplasty of cephalic vein on 04/22/17, d/t lack of resident availability.
--- NOTE | 2017-04-22 15:54 | Anesthesiology Progress Note ---
Anesthesia Post Op Note Date & Time Apr 22, 2017 at 15:54 Vital Signs Pain Intensity: 0 Vital Signs Past 12 Hours Date Time Temp Pulse Resp B/P (MAP) Pulse Ox O2 Delivery O2 Flow Rate FiO2 04/22/17 15:48 36.0 04/22/17 15:46 105/63 04/22/17 15:44 61 13 04/22/17 15:44 60 13 99 04/22/17 15:43 64 14 04/22/17 15:43 63 14 98 04/22/17 15:41 107/66 04/22/17 15:38 69 17 04/22/17 15:38 68 17 97 04/22/17 15:37 103/70 04/22/17 15:33 67 15 97 04/22/17 15:33 66 15 04/22/17 15:32 109/67 04/22/17 15:28 66 13 04/22/17 15:28 68 13 100 04/22/17 15:27 119/66 04/22/17 15:23 65 13 04/22/17 15:23 63 13 100 04/22/17 15:22 109/74 04/22/17 15:19 104/60 04/22/17 15:18 67 12 96 04/22/17 15:18 36.0 68 16 104/60 96 Mask 5 04/22/17 15:18 66 12 04/22/17 10:30 36.7 76 18 115/77 (90) 96 Room Air Notes Mental Status: alert / awake / arousable, participated in evaluation Pt Amnestic to Procedure: Yes Nausea / Vomiting: adequately controlled Pain: adequately controlled Airway Patency, RR, SpO2: stable & adequate BP & HR: stable & adequate Hydration State: stable & adequate Anesthetic Complications: no major complications apparent
[2017-04-22 16:00] VITALS: BP 93/53; PULSE 66; TEMP 36.5; O2SAT 100
[2017-04-22 16:30] VITALS: BP 97/53; PULSE 67; TEMP 36.5; O2SAT 100
== END 2017-04-22 16:45 | disposition home or self-care (01) ==
LOC: C.ACU 09:24
PROVIDERS: ATTEND Surgery Vascular Surgery
DX: T82.590A Other mechanical complication of surgically created arteriovenous fistula, initial encounter (principal); X58.XXXA Exposure to other specified factors, initial encounter; E11.22 Type 2 diabetes mellitus with diabetic chronic kidney disease; I12.0 Hypertensive chronic kidney disease with stage 5 chronic kidney disease or end stage renal disease; N18.6 End stage renal disease; Z99.2 Dependence on renal dialysis

== ENCOUNTER → 2017-12-22 | Day surgery (SDC) | payer BC, OTHER ==
[2017-12-11 08:39] VITALS: Ht 172.7 cm; Wt 95.5 kg
[~2017-12-22] VITALS: Ht 172.7 cm; Wt 95.5 kg
[~2017-12-22] MED LIST changes: +ACETAMINOPHEN 325 MG TAB PO PRN; -ASPI81TA28 PO; +BRIMONIDINE TART 0.2% OP SOLN PER DROP CHARGE ONE; -CAPT25TA5 PO; -CEFAZOLIN 2000 MG/60 ML D5W 60 ML IV SCH; -CINA0.42 PO; +CINA60TA PO; -DOCU-94 PO; +EpINEphrine INJ 1MG/ML AMP 1 MG/ML AMP ONE; +IMD/2 PO; -LACTATED RINGER'S 1000ML 1,000 ML IV SCH; +LACTATED RINGER'S 1000ML 500 ML IV SCH; +LIDOCAINE 4% OP SOLN DROP CHARGE ONE; +LIDOCAINE 4% OP SOLN DROP CHARGE OPR SCH; +LIDOCAINE HCL 1% MPF 2 ML VIAL ONE; +METHTAB PO; -METO25TA3 PO; +MIDAZOLAM HCL 1 MG/ML 2ML VIAL ONE; +MOXIFLOXACIN OPH SOLN PER DROP CHARGE ONE; -MULT-506 PO; -PHS667 PO; +POVIDONE-IODINE OP SOLN 30 ML BTL ONE; +PROPARACAINE 0.5% OP SOLN PER DROP CHARGE OPR SCH; +TOBRAMYCIN/DEXAMETHASONE OPH OINT PER APPLN CHARGE ONE; +TPRSR/25 PO
[2017-12-22] MEDS: PHENYLEPHRINE HCL 2.5% OP SOLN PER DROP CHARGE OPR SCH ×2 (09:16→09:22)
[2017-12-22] MEDS: TROPICAMIDE 1% OP SOLN PER DROP CHARGE OPR SCH ×2 (09:17→09:26)
[2017-12-22] MEDS: CYCLOPENTOLATE HCL 1% OP SOLN PER DROP CHARGE OPR SCH ×2 (09:18→09:27)
[2017-12-22] MEDS: KETOROLAC 0.5% OP SOLN PER DROP CHARGE OPR SCH ×2 (09:20→09:29)
[2017-12-22] MEDS: MOXIFLOXACIN OPH SOLN PER DROP CHARGE OPR SCH ×2 (09:21→09:30)
[2017-12-22 11:06] LABS: CALCIUM 8.3 mg/dl (8.5-10.1); CREATININE 14.6 mg/dl (0.60-1.40); POTASSIUM 6.5 mmol/L (3.5-5.1)
--- NOTE | 2017-12-22 11:34 | [facility] Operative Report ---
Operative Report Operative Date Dec 22, 2017. Pre-Operative Diagnosis cataract right eye Post-Operative Diagnosis same Procedure(s) Performed none Surgeon anne marie Fondant Cooker Surgeon(s) none Estimated Blood Loss none Findings none Fluids none Specimens none Drains None Anesthesia Type None Complication(s) none Disposition no Recovery Room / PACU Indications decreased vision right eye Description of Procedure After informed consent was obtained in the holding area the patient was wheeled back to the operating room where cardiac monitoring leads and oxygen by nasal cannula was administered by nursing. The right eye was prepped and draped in normal sterile fashion. Patient could not tolerate the drape and procedure was aborted before being started. Patient was undraped and taken to recovery in stable condition. I attest to the content of the Intraoperative Record and any orders documented therein. Any exceptions are noted below.
--- NOTE | 2017-12-22 11:36 | Discharge Instructions-SurgCtr ---
Discharge Instructions Date of Service Dec 22, 2017. Visit Reason for Visit: Cataract Right Eye Discharge Discharge Diagnosis / Problem: cataract right eye Discharge Goals Goal(s): Improve function Activity Recommendations Activity Limitations: per Instructions/Follow-up section Lifting Limitations: no more than 5 pounds Anesthesia . Post Anesthesia Instructions: If you have had General Anesthesia or IV Sedation: * Do not drive today. * Resume driving when surgeon permits. * Do not make important decisions or sign legal documents today. * Call surgeon for: 1. Temperature elevations greater than 101 degrees F. 2. Uncontrollable pain. 3. Excessive bleeding. 4. Persistent nausea and vomiting. 5. Medication intolerance (nausea, vomiting or rash). * For nausea and vomiting use only clear liquids such as: tea, soda, bouillon until nausea subsides, then gradually increase diet as tolerated. * If you have any concerns or questions, call your surgeon's office. If physician is unavailable and it is an emergency, call 911 or go to the nearest emergency room. . Instructions / Follow-Up Instructions / Follow-Up ACTIVITY RECOMMENDATIONS: * Normal activities MEDICATIONS: Resume previous medications unless instructed otherwise by your surgeon. SPECIAL CARE INSTRUCTIONS: * If any problems or concerns, please call Dr. Decker's office at . FOLLOW UP VISIT: Follow-up with Dr. Decker in the [place] office as scheduled. If not already scheduled, please call the office at . Diet Recommendations Home Diet: resume previous diet Procedures Procedures Performed: none Pending Studies Studies pending at discharge: no Medical Emergencies . Who to Call and When: Medical Emergencies: If at any time you feel your situation is an emergency, please call 911 immediately. . Non-Emergent Contact Non-Emergency issues call your: Black Top Machine Operator . . "Provider Documentation" section prepared by Peter Decker. .
[2017-12-22 11:45] VITALS: BP 150/98; PULSE 67; TEMP 36.8; O2SAT 96
--- NOTE | 2017-12-22 12:13 | Anesthesiology Progress Note ---
Anesthesia Progress Note Date of Service Dec 22, 2017. Progress Notes The patient is a 51 y/o male with a HTN, skin CA and ESRD on HD ( [facility]) schedule for R cataract surgery with Dr. Decker. The patient last had hemodialysis on Friday. His potassium this morning was elevated at 6.5. He states that his Potassium has been running high recently. He is schedule for dialysis today. I explained to the patient that with IV sedation his potassium could increase to a dangerously high level leading to cardiac arrest. I spoke to Dr. Decker who stated that he could do the procedure under strict local or have it rescheduled for a another day after dialysis. The patient was agreeable to having the procedure under strict local.
== END | disposition home or self-care (01) ==
LOC: X.SURG 08:50
PROVIDERS: ATTEND Ophthalmology
DX: H25.11 Age-related nuclear cataract, right eye (principal); I12.0 Hypertensive chronic kidney disease with stage 5 chronic kidney disease or end stage renal disease; N18.6 End stage renal disease; Z94.0 Kidney transplant status; Z83.3 Family history of diabetes mellitus; Z82.49 Family history of ischemic heart disease and other diseases of the circulatory system; Z84.1 Family history of disorders of kidney and ureter; Z85.820 Personal history of malignant melanoma of skin; Z99.2 Dependence on renal dialysis; Z53.09 Procedure and treatment not carried out because of other contraindication

== ENCOUNTER → 2018-01-14 | Day surgery (SDC) | payer BC, OTHER ==
[2017-12-26 08:56] VITALS: Ht 172.7 cm; Wt 95.5 kg
[~2018-01-14] VITALS: Ht 172.7 cm; Wt 95.5 kg
[~2018-01-14] MED LIST changes: +500ML BSS 0.3ML EPI 1:1000PF IRRIG ONE; +AMVISC PLUS 0.8ML SYRINGE INT OCU ONE; +ATROPINE SULFATE 0.1 MG/ML 5ML SYR IV PRN; +BRIMONIDINE TARTRATE 0.2% 5ML ONE; +BSS FLUSH ONE; +ENDOCOAT 0.85ML SYRINGE INT OCU ONE; +EpHEDrine SULFATE INJ 50 MG/ML AMP IV PRN; +FENTANYL CITRATE INJ 50 MCG/1 ML 2 ML VIAL ONE
[2018-01-14] MEDS: PHENYLEPHRINE HCL 2.5% OP SOLN PER DROP CHARGE OPR SCH ×2 (06:37→06:44)
[2018-01-14] MEDS: TROPICAMIDE 1% OP SOLN PER DROP CHARGE OPR SCH ×2 (06:38→06:45)
[2018-01-14] MEDS: CYCLOPENTOLATE HCL 1% OP SOLN PER DROP CHARGE OPR SCH ×2 (06:39→06:46)
[2018-01-14] MEDS: KETOROLAC 0.5% OP SOLN PER DROP CHARGE OPR SCH ×2 (06:41→06:48)
[2018-01-14] MEDS: MOXIFLOXACIN OPH SOLN PER DROP CHARGE OPR SCH ×2 (06:42→06:52)
[2018-01-14 07:43] LABS: CALCIUM 8.2 mg/dl (8.5-10.1); CREATININE 12.6 mg/dl (0.60-1.40); POTASSIUM 5.9 mmol/L (3.5-5.1)
--- NOTE | 2018-01-14 08:17 | [facility] Operative Report ---
Operative Report Operative Date Jan 14, 2018. Pre-Operative Diagnosis Right Eye Cataract Post-Operative Diagnosis same as pre op Procedure(s) Performed Right Cataract Phacoemulsification With Intraocular Lens Implant Surgeon Dr Decker Technical Project Coordinator Surgeon(s) none Estimated Blood Loss 0ml Findings cataract right eye Fluids see anesthesia record Specimens none Drains None Anesthesia Type MAC Complication(s) none Disposition no Recovery Room / PACU Indications decreased vision right eye Description of Procedure After informed consent was obtained in the holding area the patient was wheeled back to the operating room where cardiac monitoring leads and oxygen by nasal cannula was administered by Anesthesia. Gentle IV sedation was given, and the patient's right eye was prepped and draped in usual sterile fashion. A wire lid speculum was placed into the right eye and the operating microscope was swung into position. Using 0.12 forceps and a Supersharp blade a paracentesis port was made 2 o'clock hours away from the 9 o'clock position of the patient's right eye. 1% non-preserved Lidocaine was then injected into the anterior chamber for anesthesia. A 2.0 mm keratotome blade was then used to make a shelved clear corneal incision at the 9 o'clock position of the right eye. Amvisc was injected into the anterior chamber and a cystotome and Utrata forceps were used to perform a curvilinear capsulorrhexis. BSS on a hydrodissection cannula was used to hydrodissect the lens nucleus away from the capsular bag. The phacoemulsification handpiece was then used in a stop and chop fashion to remove the lens nucleus. The irrigation and aspiration handpiece was then used to remove the residual cortical material. Amvisc was injected into the capsular bag and anterior chamber and a Bausch & Lomb MX60 19.5 Diopter intraocular lens was injected into the capsular bag. Irrigation and aspiration handpiece was used to remove the residual viscoelastic material. The wounds were hydrated and noted to be watertight. The wire lid speculum was removed from the eye. Vigamox, Brimonidine, and TobraDex ointment were placed on the eye and it was shielded. It should be noted that EndoCoat was used extensively during the case to protect the cornea endothelium. DISPOSITION: The patient tolerated the procedure well and was wheeled to the post anesthesia care unit in stable condition. I attest to the content of the Intraoperative Record and any orders documented therein. Any exceptions are noted below. I attest to the content of the Intraoperative Record and any orders documented therein. Any exceptions are noted below.
--- NOTE | 2018-01-14 08:18 | Discharge Instructions-SurgCtr ---
Discharge Instructions Date of Service Jan 14, 2018. Visit Reason for Visit: Right Cataract Discharge Discharge Diagnosis / Problem: cataract right eye Discharge Goals Goal(s): Improve function Activity Recommendations Activity Limitations: per Instructions/Follow-up section Lifting Limitations: no more than 5 pounds Anesthesia . Post Anesthesia Instructions: If you have had General Anesthesia or IV Sedation: * Do not drive today. * Resume driving when surgeon permits. * Do not make important decisions or sign legal documents today. * Call surgeon for: 1. Temperature elevations greater than 101 degrees F. 2. Uncontrollable pain. 3. Excessive bleeding. 4. Persistent nausea and vomiting. 5. Medication intolerance (nausea, vomiting or rash). * For nausea and vomiting use only clear liquids such as: tea, soda, bouillon until nausea subsides, then gradually increase diet as tolerated. * If you have any concerns or questions, call your surgeon's office. If physician is unavailable and it is an emergency, call 911 or go to the nearest emergency room. . Instructions / Follow-Up Instructions / Follow-Up ACTIVITY RECOMMENDATIONS: * Light activities * You may walk outside, read, watch television. * Mild irritation and blurred vision are common for the first few days, redness around the white part of the eye is common. MEDICATIONS: Resume previous medications unless instructed otherwise by your surgeon. Eye drops (today and tomorrow): Cipro - one drop in operative eye every 2 hours while awake Prednisolone 1% - one drop in operative eye every 2 hours while awake Bromfenac - one drop in operative eye once daily SPECIAL CARE INSTRUCTIONS: * If any problems or concerns, please call Dr. Decker's office at . * Keep plastic shield taped over eye to sleep at night. * Keep plastic shield taped over eye except to administer eye drops. * Keep plastic shield on until office visit the following day. FOLLOW UP VISIT: Follow-up with Dr. Decker in the [place] office as scheduled. If not already scheduled, please call the office at . Diet Recommendations Home Diet: resume previous diet Procedures Procedures Performed: Right Cataract Phacoemulsification With Intraocular Lens Implant Pending Studies Studies pending at discharge: no Medical Emergencies . Who to Call and When: Medical Emergencies: If at any time you feel your situation is an emergency, please call 911 immediately. . Non-Emergent Contact Non-Emergency issues call your: Ear Mold Laboratory Technician . . "Provider Documentation" section prepared by Peter Decker. .
[2018-01-14 08:20] VITALS: TEMP 36.2
--- NOTE | 2018-01-14 08:41 | Anesthesia Progress Nt - [facility] ---
Anesthesia Post Op Note Date & Time Jan 14, 2018 at 08:40 Vital Signs Vital Signs Past 12 Hours Date Time Temp Pulse Resp B/P (MAP) Pulse Ox O2 Delivery O2 Flow Rate FiO2 01/14/18 08:20 36.2 75 16 142/95 (111) 95 Room Air 01/14/18 06:20 36.7 76 20 161/101 (121) 99 Room Air Notes Mental Status: alert / awake / arousable, participated in evaluation Pt Amnestic to Procedure: Yes Nausea / Vomiting: adequately controlled Pain: adequately controlled Airway Patency, RR, SpO2: stable & adequate BP & HR: stable & adequate Hydration State: stable & adequate Anesthetic Complications: no major complications apparent
[2018-01-14 08:45] VITALS: BP 138/89; PULSE 70; O2SAT 97
== END | disposition home or self-care (01) ==
LOC: X.SURG 06:07
PROVIDERS: ATTEND Ophthalmology
DX: E11.36 Type 2 diabetes mellitus with diabetic cataract (principal); H26.9 Unspecified cataract; I10 Essential (primary) hypertension; E11.22 Type 2 diabetes mellitus with diabetic chronic kidney disease; Z99.2 Dependence on renal dialysis; Z85.828 Personal history of other malignant neoplasm of skin; Z94.0 Kidney transplant status; Z80.9 Family history of malignant neoplasm, unspecified; Z82.49 Family history of ischemic heart disease and other diseases of the circulatory system; Z83.3 Family history of diabetes mellitus

== ENCOUNTER → 2018-02-25 | Day surgery (SDC) | payer OTHER, BC ==
[2018-02-13 07:59] VITALS: Ht 172.7 cm; Wt 95.5 kg
[~2018-02-25] VITALS: Ht 172.7 cm; Wt 95.5 kg
[~2018-02-25] MED LIST changes: -FENTANYL CITRATE INJ 50 MCG/1 ML 2 ML VIAL ONE; +LIDOCAINE 4% OP SOLN DROP CHARGE OPL SCH; -LIDOCAINE 4% OP SOLN DROP CHARGE OPR SCH; +PROPARACAINE 0.5% OP SOLN PER DROP CHARGE OPL SCH; -PROPARACAINE 0.5% OP SOLN PER DROP CHARGE OPR SCH
[2018-02-25] MEDS: PHENYLEPHRINE HCL 2.5% OP SOLN PER DROP CHARGE OPL SCH ×2 (06:34→06:43)
[2018-02-25] MEDS: TROPICAMIDE 1% OP SOLN PER DROP CHARGE OPL SCH ×2 (06:37→06:44)
[2018-02-25] MEDS: CYCLOPENTOLATE HCL 1% OP SOLN PER DROP CHARGE OPL SCH ×2 (06:38→06:45)
[2018-02-25] MEDS: KETOROLAC 0.5% OP SOLN PER DROP CHARGE OPL SCH ×2 (06:39→06:46)
[2018-02-25] MEDS: MOXIFLOXACIN OPH SOLN PER DROP CHARGE OPL SCH ×2 (06:41→06:49)
[2018-02-25 07:08] LABS: CALCIUM 9.7 mg/dl (8.5-10.1); CREATININE 13.6 mg/dl (0.60-1.40); POTASSIUM 4.7 mmol/L (3.5-5.1)
--- NOTE | 2018-02-25 07:35 | [facility] Operative Report ---
Operative Report Operative Date February 25, 2018. Pre-Operative Diagnosis Left Eye Cataract Post-Operative Diagnosis same Procedure(s) Performed Left Cataract Phacoemulsification With Intraocular Lens Implant Surgeon Dr. Kaylee Decker Entry Level Programmer Surgeon(s) 0 Estimated Blood Loss 0 Findings cataract left eye Fluids see anesthesia record Specimens none Drains None Anesthesia Type MAC Complication(s) none Disposition no Recovery Room / PACU Indications decreased vision left eye Description of Procedure After informed consent was obtained in the holding area the patient was wheeled back to the operating room where cardiac monitoring leads and oxygen by nasal cannula was administered by Anesthesia. Gentle IV sedation was given, and the patient's left eye was prepped and draped in usual sterile fashion. A wire lid speculum was placed into the left eye and the operating microscope was swung into position. Using 0.12 forceps and a Supersharp blade a paracentesis port was made 2 o'clock hours away from the 3 o'clock position of the patient's left eye. 1% non-preserved Lidocaine was then injected into the anterior chamber for anesthesia. A 2.0 mm keratotome blade was then used to make a shelved clear corneal incision at the 3 o'clock position of the left eye. Amvisc was injected into the anterior chamber and a cystotome and Utrata forceps were used to perform a curvilinear capsulorrhexis. BSS on a hydrodissection cannula was used to hydrodissect the lens nucleus away from the capsular bag. The phacoemulsification handpiece was then used in a stop and chop fashion to remove the lens nucleus. The irrigation and aspiration handpiece was then used to remove the residual cortical material. Amvisc was injected into the capsular bag and anterior chamber and a Bausch & Lomb MX60E 19.5 Diopter intraocular lens was injected into the capsular bag. Irrigation and aspiration handpiece was used to remove the residual viscoelastic material. The wounds were hydrated and noted to be watertight. The wire lid speculum was removed from the eye. Vigamox, Brimonidine, and TobraDex ointment were placed on the eye and it was shielded. It should be noted that EndoCoat was used extensively during the case to protect the cornea endothelium. DISPOSITION: The patient tolerated the procedure well and was wheeled to the post anesthesia care unit in stable condition. I attest to the content of the Intraoperative Record and any orders documented therein. Any exceptions are noted below. I attest to the content of the Intraoperative Record and any orders documented therein. Any exceptions are noted below.
--- NOTE | 2018-02-25 07:36 | Discharge Instructions-SurgCtr ---
Discharge Instructions Date of Service February 25, 2018. Visit Reason for Visit: Cataract Left Eye Discharge Discharge Diagnosis / Problem: cataract left eye Discharge Goals Goal(s): Improve function Activity Recommendations Activity Limitations: per Instructions/Follow-up section Lifting Limitations: no more than 5 pounds Anesthesia . Post Anesthesia Instructions: If you have had General Anesthesia or IV Sedation: * Do not drive today. * Resume driving when surgeon permits. * Do not make important decisions or sign legal documents today. * Call surgeon for: 1. Temperature elevations greater than 101 degrees F. 2. Uncontrollable pain. 3. Excessive bleeding. 4. Persistent nausea and vomiting. 5. Medication intolerance (nausea, vomiting or rash). * For nausea and vomiting use only clear liquids such as: tea, soda, bouillon until nausea subsides, then gradually increase diet as tolerated. * If you have any concerns or questions, call your surgeon's office. If physician is unavailable and it is an emergency, call 911 or go to the nearest emergency room. . Instructions / Follow-Up Instructions / Follow-Up ACTIVITY RECOMMENDATIONS: * Light activities * You may walk outside, read, watch television. * Mild irritation and blurred vision are common for the first few days, redness around the white part of the eye is common. MEDICATIONS: Resume previous medications unless instructed otherwise by your surgeon. Eye drops (today and tomorrow): Cipro - one drop in operative eye every 2 hours while awake Prednisolone 1% - one drop in operative eye every 2 hours while awake Bromfenac - one drop in operative eye once daily SPECIAL CARE INSTRUCTIONS: * If any problems or concerns, please call Dr. Decker's office at . * Keep plastic shield taped over eye to sleep at night. * Keep plastic shield taped over eye except to administer eye drops. * Keep plastic shield on until office visit the following day. FOLLOW UP VISIT: Follow-up with Dr. Decker in the [place] office as scheduled. If not already scheduled, please call the office at . Diet Recommendations Home Diet: resume previous diet Procedures Procedures Performed: Left Cataract Phacoemulsification With Intraocular Lens Implant Pending Studies Studies pending at discharge: no Medical Emergencies . Who to Call and When: Medical Emergencies: If at any time you feel your situation is an emergency, please call 911 immediately. . Non-Emergent Contact Non-Emergency issues call your: Workers Compensation Coordinator . . "Provider Documentation" section prepared by Peter Decker. .
[2018-02-25 07:37] VITALS: TEMP 36.5
[2018-02-25 08:10] VITALS: BP 116/84; PULSE 78; O2SAT 96
--- NOTE | 2018-02-25 08:17 | Anesthesiology Progress Note ---
Anesthesia Post Op Note Date & Time February 25, 2018 at 08:17 Vital Signs Pain Intensity: 0 Vital Signs Past 12 Hours Date Time Temp Pulse Resp B/P (MAP) Pulse Ox O2 Delivery O2 Flow Rate FiO2 02/25/18 08:10 78 16 116/84 (95) 96 Room Air 02/25/18 07:37 36.5 73 18 127/82 (97) 97 Room Air 02/25/18 06:21 36.2 77 16 116/84 (95) 95 Room Air Notes Mental Status: alert / awake / arousable, participated in evaluation Nausea / Vomiting: adequately controlled Pain: adequately controlled Airway Patency, RR, SpO2: stable & adequate BP & HR: stable & adequate Hydration State: stable & adequate Anesthetic Complications: no major complications apparent
== END | disposition home or self-care (01) ==
LOC: X.SURG 06:06
PROVIDERS: ATTEND Ophthalmology
DX: H25.12 Age-related nuclear cataract, left eye (principal); I12.9 Hypertensive chronic kidney disease with stage 1 through stage 4 chronic kidney disease, or unspecified chronic kidney disease; N18.9 Chronic kidney disease, unspecified; Z99.2 Dependence on renal dialysis; Z85.828 Personal history of other malignant neoplasm of skin; Z94.0 Kidney transplant status; Z82.49 Family history of ischemic heart disease and other diseases of the circulatory system; Z83.3 Family history of diabetes mellitus; Z84.1 Family history of disorders of kidney and ureter; Z79.899 Other long term (current) drug therapy

== ENCOUNTER 2019-08-18 13:39 | Inpatient (IN) ==
[2019-08-18 14:29] LABS: Basophils # (auto) 0.02 K/uL (0-0.2); Basophils % (auto) 0.4 %; Eosinophils # (auto) 0.18 K/uL (0-0.5); Eosinophils % (auto) 3.6 %; Hematocrit (blood only) 49.9 % (42-52); Immature Granulocytes # (auto) 0.04 K/uL (0.00-0.02); Immature Granulocytes % (auto) 0.8 %; Lymphocytes # (auto) 1.21 K/uL (1.2-3.4); Lymphocytes % (auto) 24.1 %; Mean Corpuscular Hemoglobin 29.4 pg (25-34); Mean Corpuscular Hgb Conc 34.1 g/dL (32-36); Mean Corpuscular Volume 86.3 fL (80-100); Mean Platelet Volume 8.9 fL (7.4-10.4); Monocytes # (auto) 0.36 K/uL (0.11-0.59); Monocytes % (auto) 7.2 %; Neutrophils # (auto) 3.22 K/uL (1.4-6.5); Neutrophils % (auto) 63.9 %; Platelet Count 182 K/uL (130-400); RDW Standard Deviation 47.1 fL (36.4-46.3); Red Blood Count 5.78 M/uL (4.7-6.1); White Blood Count 5.03 K/uL (4.8-10.8)
--- NOTE | 2019-08-18 14:53 | XRay Report ---
XR chest 1V portable CLINICAL HISTORY: 53 years-old Male presenting with Chest Pain, shortness of breath for a few hours. TECHNIQUE: Portable upright AP view of the chest was obtained. COMPARISON: 11/15/2016. FINDINGS: Atherosclerosis of the aortic arch. Cardiac silhouette enlarged. Bony vascular prominence. Interstiti al prominence likely indicates interlobular septal thickening. Mild added density of the lungs. No fo lexy opacity. No large effusion or pneumothorax. Degenerative changes of the thoracic spine. Upper abd omen normal. IMPRESSION: 1. Cardiomegaly with volume overload and congestive change. Early/developing pulmonary edema not exc luded. Electronically signed by: Noé Gunn M.D. 08/18/2019 2:51 PM
[2019-08-18 14:56] LABS: Alanine Aminotransferase 13 U/L (12-78); Albumin Globulin Ratio 0.8 (0.9-2); Albumin Level 4.4 gm/dl (3.4-5.0); Alkaline Phosphatase 107 U/L (45-117); Aspartate Aminotransferase 17 U/L (15-37); BUN Creatinine Ratio 3.6 (10-20); Bilirubin,Total 0.7 mg/dl (0.2-1); Blood Urea Nitrogen 25 mg/dl (7-18); Calcium 9.9 mg/dl (8.5-10.1); Carbon Dioxide 32 mmol/L (21-32); Chloride 89 mmol/L (98-107); Creatinine Clr Calc Pharmacy 14.3 ml/min; Est GFR (African American) 9.5; Est GFR (Non-African American) 8.2; Globulin 5.3 gm/dl (2.5-4.0); Glucose 82 mg/dl (70-99); Lipase 1115 U/L (73-393); Potassium 3.6 mmol/L (3.5-5.1); Sodium 133 mmol/L (136-145); Total Protein 9.7 gm/dl (6.4-8.2); Troponin I < 0.015 ng/ml (0-0.045)
[2019-08-18] MEDS ORDERED: MoRPHine SULFATE 4 MG/ML 1 ML CARP\\VIAL IV PRN (14:56)
--- NOTE | 2019-08-18 15:28 | Emergency Department Note ---
Entered by Hetal Zuñiga acting as a scribe for Godfrey Nunez DO History of Present Illness General Chief complaint: Chest Pain Time Seen by Provider: 08/18/19 14:06 Source: patient History of Present Illness Onset (ago): hour(s) (today) Location: chest (left sided) Radiation: neck (left sided), extremity (left arm) and other ("discomfort" in shoulders) Severity: severe (severe at first but now "somewhat" resolved) Maximum Pain Intensity: 6 Quality: + other ("throbbing") Associated symptoms: + denies other symptoms (orthopenia, specific leg swelling or calf pain, vomiting, abdominal pain, back pain), + shortness of breath and + other (nausea) Treatments prior to arrival: aspirin and other (nitroglycerin ) The patient is a 53-year-old male who presented to the emergency department directly from dialysis after developing chest pain. The patient developed left- sided chest pain with radiation to the neck as well as the left arm. He states he feels as though he has discomfort in his shoulders as well. The patient was given aspirin as well as nitroglycerin prior to arrival. He did note some shortness of breath but no orthopnea at this time. The patient states the pain began approximately 12:30 PM today. He felt as though it was a "throbbing" pain. The patient has not had previous symptoms in the past. He denies having a history of [place]. The patient states that his legs feel heavy but he denies any specific swelling or calf pain. He has not noticed any increase in his edema. He did note significant nausea with the symptoms but no vomiting. The patient h as not seen his primary care physician for this pain. He states the pain was very severe initially but is resolved somewhat. He is unsure if the pain is better after the nitroglycerin and the aspirin or just because of time. He denies having any abdominal pain or back pain. Home Medications Home Medications Medication Instructions Recorded Confirmed Type loperamide [Imodium A-D] 2 mg PO Q3H PRN 12/21/18 08/18/19 History metoprolol succinate 25 mg PO DAILY 12/21/18 08/18/19 History calcitriol 0.25 mcg PO 3XWK 08/18/19 08/18/19 History sevelamer carbonate [Renvela] 2,400 mg PO TIDM 08/18/19 08/18/19 History Allergies Allergy/AdvReac Type Severity Reaction Status Date / Time adhesive Allergy Mild SKIN Verified 12/24/18 13:43 IRRITATION aspirin AdvReac Mild NOSE BLEED Verified 12/24/18 13:43 Past Med/Surg History Medical History Accelerated hypertension (Acute) Anemia due to chronic kidney disease (Chronic) Diabetes mellitus (Acute) Diverticulosis (Chronic) Encounter for hemodialysis for ESRD End stage renal disease (Chronic) Esophageal reflux (Chronic) ESRD (end stage renal disease) on dialysis (Acute) ESRD on hemodialysis History of diverticulitis (Acute) Hx of malignant melanoma of skin (Acute) Hx of malignant skin melanoma (Chronic) Hypercholesterolemia (Chronic) Hyperglycemia (Chronic) Hyperparathyroidism (Chronic) Hypertension (Chronic) Inhibited sexual excitement (Chronic) Kidney transplant failure (Chronic) Postsurgical renal dialysis status (Chronic) Surgical History History of bowel resection (Acute) History of kidney transplant (Acute) Social History Preferred Language: Bruneian Communication Ability: Effective 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 and A total of 10 systems reviewed and were otherwise negative Physical Exam Vital Signs Vital Signs - 24 hr 08/18/19 18:00 08/18/19 18:31 Pulse Rate [Left] 116 H 88 Pulse Rhythm [Left] Regular Respiratory Rate 25 H 20 Respiratory Effort / Characteristics Non-Labored Non-Labored Respiratory Depth Normal Normal Respiratory Pattern Regular Regular Blood Pressure [Right Arm] 118/84 119/83 Blood Pressure Mean [Right Arm] 95 95 Pulse Oximetry 95 98 Oxygen Delivery Method Room Air Room Air GENERAL: Patient is awake alert in no acute distress patient is resting comfort ably and showing no signs of anxiety EYES: The conjunctivae are clear. The pupils are round and reactive. EARS, NOSE, MOUTH AND THROAT: The nose is without any evidence of any deformity. Mucous membranes are moist tongue is midline NECK: The neck is nontender and supple. RESPIRATORY: Normal respiratory effort is noted there is no evidence of wheezing rhonchi or rales CARDIOVASCULAR: Regular rate and rhythm was noted to auscultation. There was a systolic murmur noted. GASTROINTESTINAL: The abdomen is soft. Bowel sounds are present in all quadrants. Abdomen is nontender MUSCULOSKELETAL/EXTREMITIES: There is no evidence of gross deformity full range of motion is noted in the hips and shoulders SKIN: There is no obvious evidence of any rash. No significant pedal edema was noted. There was a dialysis fistula in the left upper extremity. No active bleeding was noted. There was a palpable thrill as well as a bruit noted to auscultation. NEUROLOGIC: Patient is awake alert and oriented x3. Course Course 1515: Past medical records reviewed. The patient was evaluated in room C08. A complete history and physical exam was performed. 2018: I spoke with Dr. Galdamez, [facility] who accepts the patient for admission. The patient verbally expressed understanding and agreement of the treatment plan. The patient will be evaluated for further treatment. Administered Medications Acetaminophen (Tylenol) 650 mg PO Q4H PRN PRN Reason: Pain or Fever Stop: 09/17/19 20:07 Last Admin: 08/19/19 09:01 Dose: 650 mg Documented by: [id number] Heparin Sodium (Porcine) (Heparin Sodium (Porcine)) 5,000 units SQ Q12 RUSSELL Stop: 09/17/19 20:59 Last Admin: 08/19/19 08:59 Dose: 5,000 units Documented by: [id number] Cosigned by: [id number] Admin: 08/18/19 21:19 Dose: 5,000 units Documented by: [id number] Cosigned by: [id number] Famotidine 20 mg/ Syringe 5 mls @ 2.5 mls/min IV BID RUSSELL Stop: 09/17/19 20:59 Last Admin: 08/19/19 08:58 Dose: 2.5 mls/min Documented by: [id number] Admin: 08/18/19 20:34 Dose: 2.5 mls/min Documented by: [id number] Sodium Chloride (Nss 1000ml) 1,000 mls @ 40 mls/hr IV .Q24H RUSSELL Stop: 09/17/19 21:59 Last Admin: 08/18/19 22:35 Dose: 40 mls/hr Documented by: [id number] Metoprolol Succinate (Toprol Xl) 25 mg PO DAILY RUSSELL Stop: 09/18/19 08:59 Last Admin: 08/19/19 08:59 Dose: 25 mg Documented by: [id number] Morphine Sulfate (Morphine Sulfate) 2 mg IV Q3H PRN PRN Reason: Pain Stop: 09/01/19 19:28 Last Admin: 08/18/19 23:52 Dose: 2 mg Documented by: [id number] Admin: 08/18/19 20:36 Dose: 2 mg Documented by: [id number] Sevelamer HCl (Renagel) 2,400 mg PO TIDM RUSSELL Stop: 09/18/19 07:59 Last Admin: 08/19/19 17:13 Dose: 2,400 mg Documented by: [id number] Admin: 08/19/19 12:14 Dose: 2,400 mg Documented by: [id number] Admin: 08/19/19 08:59 Dose: 2,400 mg Documented by: [id number] Discontinued Medications Famotidine (Pepcid 20mg Iv Push) 20 mg IV ONE STA Stop: 08/18/19 16:23 Last Admin: 08/18/19 16:35 Dose: 20 mg Documented by: [id number] Lactated Ringer's (Lr) 1,000 mls @ 40 mls/hr IV .Q24H RUSSELL Stop: 09/17/19 20:07 Last Infusion: 08/18/19 22:35 Dose: 0 mls/hr Documented by: [id number] Admin: 08/18/19 20:34 Dose: 40 mls/hr Documented by: [id number] Morphine Sulfate (Morphine Sulfate) 4 mg IV Q15M PRN PRN Reason: Pain Stop: 09/01/19 14:55 Last Admin: 08/18/19 16:19 Dose: 4 mg Documented by: [id number] Perflutren Lipid Microsphere (Definity) 2 ml IV ONCE ONE Stop: 08/19/19 08:39 Last Admin: 08/19/19 08:39 Dose: 2 ml Documented by: [id number] Impression & Plan Chest pain, Renal failure, Pancreatitis Discharge Plan Visit Data *Final* Discharge Date/Time: 08/18/19 19:43 Chief Complaint: Chest Pain ED Provider: Godfrey Nunez Discharge Problem: Chest pain, Renal failure, Pancreatitis Patient Disposition: Admitted As Inpatient Discharge Instructions Interventions: ED Discharge Assessment Last Done: 08/18/19 19:43 Medical Decision Making Differential Diagnosis Differential diagnosis includes but is not limited to etiologies such as cardiac ischemia, aortic dissection, pulmonary embolism, pneumonia, pneumothorax, musculoskeletal, infections, pericarditis, myocarditis, esophageal rupture, gastrointestinal, as well as others were entertained. Medical Records Attestation: I reviewed the patient's medical records. Home Medications Current Medication List: was personally reviewed by me Laboratory Data Attestation: I reviewed the patient's lab results. Result diagrams: 08/18/19 13:15 08/19/19 01:47 Lab Results 08/18/19 08/18/19 08/18/19 Range/Units 13:15 13:15 13:15 WBC 5.03 (4.8-10.8) K/uL RBC 5.78 (4.7-6.1) M/uL Hgb 17.0 (14.0-18.0) g/dL Hct 49.9 (42-52) % MCV 86.3 (80-100) fL MCH 29.4 (25-34) pg MCHC 34.1 (32-36) g/dL RDW Std Deviation 47.1 H (36.4-46.3) fL RDW Coeff of Lisseth 15.0 H (11.5-14.5) % Plt Count 182 (130-400) K/uL MPV 8.9 (7.4-10.4) fL Immature Gran % (Auto) 0.8 % Neut % (Auto) 63.9 % Lymph % (Auto) 24.1 % Atlantic % (Auto) 7.2 % Eos % (Auto) 3.6 % Baso % (Auto) 0.4 % Immature Gran # (Auto) 0.04 H (0.00-0.02) K/uL Neut # (Auto) 3.22 (1.4-6.5) K/uL Lymph # (Auto) 1.21 (1.2-3.4) K/uL Atlantic # (Auto) 0.36 (0.11-0.59) K/uL Eos # (Auto) 0.18 (0-0.5) K/uL Baso # (Auto) 0.02 (0-0.2) K/uL PT Cancelled INR Cancelled APTT Cancelled PTT Ratio Cancelled Sodium 133 L (136-145) mmol/L Potassium 3.6 (3.5-5.1) mmol/L Chloride 89 L (98-107) mmol/L Carbon Dioxide 32 (21-32) mmol/L Anion Gap 12.0 H (3-11) BUN 25 H (7-18) mg/dl Creatinine 6.88 H* (0.6-1.4) mg/dl Est Cr Clr Drug Dosing 14.3 ml/min Est GFR ( Amer) 9.5 Est GFR (Non-Af Amer) 8.2 BUN/Creatinine Ratio 3.6 L (10-20) Glucose 82 (70-99) mg/dl Calcium 9.9 (8.5-10.1) mg/dl Total Bilirubin 0.7 (0.2-1) mg/dl AST 17 (15-37) U/L ALT 13 (12-78) U/L Alkaline Phosphatase 107 (45-117) U/L Troponin I < 0.015 (0-0.045) ng/ml Total Protein 9.7 H (6.4-8.2) gm/dl Albumin 4.4 (3.4-5.0) gm/dl Globulin 5.3 H (2.5-4.0) gm/dl Albumin/Globulin Ratio 0.8 L (0.9-2) Lipase 1115 H (73-393) U/L 08/18/19 Range/Units 16:02 WBC (4.8-10.8) K/uL RBC (4.7-6.1) M/uL Hgb (14.0-18.0) g/dL Hct (42-52) % MCV (80-100) fL MCH (25-34) pg MCHC (32-36) g/dL RDW Std Deviation (36.4-46.3) fL RDW Coeff of Lisseth (11.5-14.5) % Plt Count (130-400) K/uL MPV (7.4-10.4) fL Immature Gran % (Auto) % Neut % (Auto) % Lymph % (Auto) % Atlantic % (Auto) % Eos % (Auto) % Baso % (Auto) % Immature Gran # (Auto) (0.00-0.02) K/uL Neut # (Auto) (1.4-6.5) K/uL Lymph # (Auto) (1.2-3.4) K/uL Atlantic # (Auto) (0.11-0.59) K/uL Eos # (Auto) (0-0.5) K/uL Baso # (Auto) (0-0.2) K/uL PT 10.2 INR 1.0 APTT 25.1 PTT Ratio 0.9 Sodium (136-145) mmol/L Potassium (3.5-5.1) mmol/L Chloride (98-107) mmol/L Carbon Dioxide (21-32) mmol/L Anion Gap (3-11) BUN (7-18) mg/dl Creatinine (0.6-1.4) mg/dl Est Cr Clr Drug Dosing ml/min Est GFR ( Amer) Est GFR (Non-Af Amer) BUN/Creatinine Ratio (10-20) Glucose (70-99) mg/dl Calcium (8.5-10.1) mg/dl Total Bilirubin (0.2-1) mg/dl AST (15-37) U/L ALT (12-78) U/L Alkaline Phosphatase (45-117) U/L Troponin I (0-0.045) ng/ml Total Protein (6.4-8.2) gm/dl Albumin (3.4-5.0) gm/dl Globulin (2.5-4.0) gm/dl Albumin/Globulin Ratio (0.9-2) Lipase (73-393) U/L Imaging Data Radiologist's Impression: Radiology results as stated below per my review and the radiologist's interpretation: XR chest 1V portable CLINICAL HISTORY: 53 years-old Male presenting with Chest Pain, shortness of breath for a few hours. TECHNIQUE: Portable upright AP view of the chest was obtained. COMPARISON: 11/15/2016. FINDINGS: Atherosclerosis of the aortic arch. Cardiac silhouette enlarged. Bony vascular prominence. Interstitial prominence likely indicates interlobular septal thickening. Mild added density of the lungs. No focal opacity. No large effusion or pneumothorax. Degenerative changes of the thoracic spine. Upper abdomen normal. IMPRESSION: 1. Cardiomegaly with volume overload and congestive change. Early/developing pulmonary edema not excluded. Electronically signed by: Noé Gunn M.D. 08/18/2019 2:51 PM US gallbladder CLINICAL HISTORY: 53 years-old Male presenting with pancreatitis. TECHNIQUE: Real-time grayscale and limited color Doppler ultrasound imaging of the abdomen limited to the right upper quadrant was performed. COMPARISON: 11/14/2015. FINDINGS: Pancreas: Largely obscured due to overlying bowel gas. Liver: Mildly hyperechogenic parenchyma, although the right hemidiaphragm remains visible, likely indicating mild steatosis. The liver measures 18.6 cm in maximal sagittal dimension. No sonographic evidence of hepatic mass. Main portal vein patent with normal directional flow. Biliary: No intrahepatic biliary ductal dilatation. Common bile duct measures up to 8 mm in diameter. Gallbladder: No evidence of gallstones, gallbladder wall thickening, gallbladder distention, or pericholecystic fluid or inflammatory change. Sonographic Juarez's sign negative. Right kidney: Atrophic echogenic kidneys. No hydronephrosis. Ascites: None. Other: None. IMPRESSION: 1. Obscured pancreas. 2. No cholelithiasis or biliary ductal dilatation. 3. Suspected mild hepatic steatosis. Correlate with liver function tests to exclude steatohepatitis as a cause for abdominal pain. 4. Right renal atrophy. Electronically signed by: Noé Gunn M.D. 08/18/2019 4:56 PM ECG Data Attestation: I personally reviewed and interpreted this ECG as follows: Indication: + chest pain Rate (beats per minute): 86 ECG Findings: + Other (poor R wave progression is noted, lateral T wave inversions noted); no PACs and no PVCs Comparison ECG Date: from (11/17/16) Change: no significant change Additional Comments: EKG 2 performed in the ED today: performed due to worsening pain nsr at 82 bpm Findings: no ectopy, no acute ST segments, no change from earlier tracing Blood Pressure Blood Pressure Findings: Normal blood pressure Blood Pressure Disposition: did not require urgent referral MDM Narrative The patient is a 53-year-old male who presented to the emergency department for an evaluation of chest discomfort. The patient was at dialysis when he developed chest discomfort. He did not have any abdominal findings on physical exam. He was given aspirin and nitroglycerin prior to arrival. I discussed patient's laboratory and radiographic studies with him. I also discussed the limitations of the emergency department work-up for chest pain with him. Ultimately he was found to have signs of pancreatitis on laboratory studies. The patient was treated with IV pain medication in the emergency department. He was reevaluated multiple times. On subsequent reevaluation was feeling much better. Because of the patient's comorbidities and findings I also discussed his case with the on-call [facility] hospitalist group. They have agreed to evaluate the patient in the emergency department for further management disposition. Discharge Problem: Chest pain Qualifiers: Chest pain type: unspecified Qualified Code(s): R07.9 - Chest pain, unspecified Renal failure Qualifiers: Renal failure chronicity: unspecified chronicity Qualified Code(s): N19 - Unspecified kidney failure Pancreatitis Qualifiers: Chronicity: acute Pancreatitis type: unspecified pancreatitis type Acute pancreatitis complication: unspecified Qualified Code(s): K85.90 - Acute pancreatitis without necrosis or infection, unspecified The scribe's documentation has been prepared under my direction and personally reviewed by me in its entirety. I confirm that the note above accurately reflects all work, treatment, procedures, and medical decision making performed by me.
[2019-08-18] MEDS ORDERED: FAMOTIDINE 20MG/5ML IV PUSH IV STA (16:22)
[2019-08-18 16:23] LABS: Partial Thromboplastin Ratio 0.9; Partial Thromboplastin Time 25.1 Seconds (21.0-31.0); Prothrombin Time 10.2 Seconds (9.0-12.0)
--- NOTE | 2019-08-18 16:57 | Ultrasound Report ---
US gallbladder CLINICAL HISTORY: 53 years-old Male presenting with pancreatitis. TECHNIQUE: Real-time grayscale and limited color Doppler ultrasound imaging of the abdomen limited to the right upper quadrant was performed. COMPARISON: 11/14/2015. FINDINGS: Pancreas: Largely obscured due to overlying bowel gas. Liver: Mildly hyperechogenic parenchyma, although the right hemidiaphragm remains visible, likely ind icating mild steatosis. The liver measures 18.6 cm in maximal sagittal dimension. No sonographic evid ence of hepatic mass. Main portal vein patent with normal directional flow. Biliary: No intrahepatic biliary ductal dilatation. Common bile duct measures up to 8 mm in diameter. Gallbladder: No evidence of gallstones, gallbladder wall thickening, gallbladder distention, or peric holecystic fluid or inflammatory change. Sonographic Juarez's sign negative. Right kidney: Atrophic echogenic kidneys. No hydronephrosis. Ascites: None. Other: None. IMPRESSION: 1. Obscured pancreas. 2. No cholelithiasis or biliary ductal dilatation. 3. Suspected mild hepatic steatosis. Correlate with liver function tests to exclude steatohepatitis as a cause for abdominal pain. 4. Right renal atrophy. Electronically signed by: Noé Gunn M.D. 08/18/2019 4:56 PM
--- NOTE | 2019-08-18 19:31 | History & Physical Report ---
Date of Service August 18, 2019 Assessment & Plan (1) Chest pain: 53-year-old male with history of end-stage renal disease due to DM 2 and hypertension status post failed renal transplant and 2007, hyperlipidemia, bowel resection secondary to diverticulitis in 2007 and melanoma presents with chest pain which started today around 12:30 PM while he was at dialysis. Chest pain: Concern for unstable angina versus [place] versus GERD versus costochondritis EGD 84 normal sinus rhythm nonspecific anterior ST abnormality QTC 470 Troponin negative Per patient recent stress test about a month ago normal at outside facility Echo and stress test 2017: Normal EF 55 to 60%, moderate LVH Trend troponin Echo ordered Received aspirin and nitro prior to arrival -continues to have intermittent pain Started on famotidine Cardiology consulted for possible cath Abdominal pain: Concern for pancreatitis versus other abdominal pathology (infectious, inflammatory, metastasis given history of melanoma) Patient has epigastric pain and awake abdominal pain mainly in the right upper quadrant and right lower quadrant, reports daily vomiting History of colon resection in the setting of diverticulitis around 2007 Lipase 1115 Gallbladder ultrasound: Normal gallbladder mild hepatic steatosis Started on very gentle fluids at 40 cc/h LR given ESRD N.p.o. Tylenol and morphine for pain as needed Consider abdominal imaging with contrast and schedule dialysis afterwards to further work-up vague abdominal pain if patient does not end up having cardiac cath End-stage renal disease Hemodialyzed today HD Friday Continue phosphasal Hypertension/hyperlipidemia Continue home metoprolol DM2 Started on SSI History per unit protocol FEN/GI: LR 40 cc/h, n.p.o. Code: Full DVT prophylaxis: Heparin subcu Disposition: Med surge with telemetry (2) Pancreatitis: (3) End stage renal disease: (4) Hx of malignant skin melanoma: (5) Hypercholesterolemia: (6) Hypertension: (7) Hyperparathyroidism: (8) Kidney transplant failure: History of Present Illness Chief Complaint: Chest pain Primary Care Provider: Yoav Hayward MD 53-year-old male with history of end-stage renal disease due to DM 2 and hypertension status post failed renal transplant and 2007, hyperlipidemia, bowel resection secondary to diverticulitis in 2007 and melanoma presents with chest pain which started today around 12:30 PM while he was at dialysis. Chest pain radiated up and down sternum to both sides of neck, arms and shoulders. Described as pressure-like, intermittent lasting for about 1 to 2 minutes each time. Associated with diaphoresis, nausea, lightheadedness, shortness of breath. Patient also complaining of abdominal and leg cramps, chronic constipation. Upon further questioning he also reports daily vomiting. Reports having a bowel movement today which was soft, brown and nonbloody. Lately patient has been having more shortness of breath on exertion. Denies any fever, chills, diarrhea, dysuria, hematuria. Per patient he had recent stress test about a month ago in preparation for transplant at outside facility which was normal as far as he knows. Patient got hemodialysis today for about 3-1/2 hours usually gets 4 hours Friday. Denies any lower extremity edema. She has never smoked and reports occasional alcohol use 1-2 times per year Allergies Allergy/AdvReac Type Severity Reaction Status Date / Time adhesive Allergy Mild SKIN Verified 12/24/18 13:43 IRRITATION aspirin AdvReac Mild NOSE BLEED Verified 12/24/18 13:43 Home Medications Home Medications Medication Instructions Recorded Confirmed Type loperamide [Imodium A-D] 2 mg PO Q3H PRN 12/21/18 08/18/19 History metoprolol succinate 25 mg PO DAILY 12/21/18 08/18/19 History calcitriol 0.25 mcg PO 3XWK 08/18/19 08/18/19 History sevelamer carbonate [Renvela] 2,400 mg PO TIDM 08/18/19 08/18/19 History Past Med/Surg History Medical History Accelerated hypertension (Acute) Anemia due to chronic kidney disease (Chronic) Diabetes mellitus (Acute) Diverticulosis (Chronic) Encounter for hemodialysis for ESRD End stage renal disease (Chronic) Esophageal reflux (Chronic) ESRD (end stage renal disease) on dialysis (Acute) ESRD on hemodialysis History of diverticulitis (Acute) Hx of malignant melanoma of skin (Acute) Hx of malignant skin melanoma (Chronic) Hypercholesterolemia (Chronic) Hyperglycemia (Chronic) Hyperparathyroidism (Chronic) Hypertension (Chronic) Inhibited sexual excitement (Chronic) Kidney transplant failure (Chronic) Postsurgical renal dialysis status (Chronic) Surgical History History of bowel resection (Acute) History of kidney transplant (Acute) Social History Preferred Language: Greenlandic Communication Ability: Effective 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 Beliefs That Will Affect Care: None Current Living Situation: Spouse Other Information That Helps Us Care for You: No Feels Safe at Home: Yes Safety Concerns: Feels Safe At This Time Smoking Status: Never smoker Do You Dip or Chew Tobacco: No ; Second Hand Exposure: No ; Hx Alcohol Use: No Hx Substance Use: No Review of Systems Review of Systems: As per HPI Physical Exam Physical Exam: General: In NAD, pleasant HEENT: dry mucous membranes Neuro: A&O x 4 Pulm: CTAB equal breath sounds bilaterally, no crackles or wheezing appreciated CV: RRR, 3/6 systolic murmur, sternal/chest wall TTP Abdomen:+BS, TTP mostly in epigastric region but also some in RUQ and RLQ r egions, non-distended, multiple abdominal incision scars, non-distended LE: no LE edema, no calf TTP RUE: fistula with good thrill and bruit Results & Data Vital Signs (Past 12 Hours) Vital Signs Temp Pulse Pulse Resp BP BP Pulse Ox 08/18/19 18:31 88 20 119/83 98 08/18/19 18:00 116 H 25 H 118/84 95 08/18/19 17:30 119 H 25 H 104/73 93 08/18/19 16:00 93 H 16 127/89 98 08/18/19 14:42 86 20 122/83 95 08/18/19 14:16 100 08/18/19 14:06 100 08/18/19 13:39 36.4 C L 86 22 141/91 H 100 Laboratory Results Abnormal lab results 08/18/19 08/18/19 Range/Units 13:15 13:15 RDW Std Deviation 47.1 H (36.4-46.3) fL RDW Coeff of Lisseth 15.0 H (11.5-14.5) % Immature Gran # (Auto) 0.04 H (0.00-0.02) K/uL Sodium 133 L (136-145) mmol/L Chloride 89 L (98-107) mmol/L Anion Gap 12.0 H (3-11) BUN 25 H (7-18) mg/dl Creatinine 6.88 H* (0.6-1.4) mg/dl BUN/Creatinine Ratio 3.6 L (10-20) Total Protein 9.7 H (6.4-8.2) gm/dl Globulin 5.3 H (2.5-4.0) gm/dl Albumin/Globulin Ratio 0.8 L (0.9-2) Lipase 1115 H (73-393) U/L Diagnostic Findings XR chest 1V portable CLINICAL HISTORY: 53 years-old Male presenting with Chest Pain, shortness of breath for a few hours. TECHNIQUE: Portable upright AP view of the chest was obtained. COMPARISON: 11/15/2016. FINDINGS: Atherosclerosis of the aortic arch. Cardiac silhouette enlarged. Bony vascular prominence. Interstitial prominence likely indicates interlobular septal thickening. Mild added density of the lungs. No focal opacity. No large effusion or pneumothorax. Degenerative changes of the thoracic spine. Upper abdomen normal. IMPRESSION: 1. Cardiomegaly with volume overload and congestive change. Early/developing pulmonary edema not excluded. US gallbladder CLINICAL HISTORY: 53 years-old Male presenting with pancreatitis. TECHNIQUE: Real-time grayscale and limited color Doppler ultrasound imaging of the abdomen limited to the right upper quadrant was performed. COMPARISON: 11/14/2015. FINDINGS: Pancreas: Largely obscured due to overlying bowel gas. Liver: Mildly hyperechogenic parenchyma, although the right hemidiaphragm remains visible, likely indicating mild steatosis. The liver measures 18.6 cm in maximal sagittal dimension. No sonographic evidence of hepatic mass. Main portal vein patent with normal directional flow. Biliary: No intrahepatic biliary ductal dilatation. Common bile duct measures up to 8 mm in diameter. Gallbladder: No evidence of gallstones, gallbladder wall thickening, gallbladder distention, or pericholecystic fluid or inflammatory change. Sonographic Juarez's sign negative. Right kidney: Atrophic echogenic kidneys. No hydronephrosis. Ascites: None. Other: None. IMPRESSION: 1. Obscured pancreas. 2. No cholelithiasis or biliary ductal dilatation. 3. Suspected mild hepatic steatosis. Correlate with liver function tests to exclude steatohepatitis as a cause for abdominal pain. 4. Right renal atrophy. Code Status & VTE Plan Code Status Full VTE Prophylaxis Plan VTE Prophylaxis will be ordered: Yes Supervising Physician Co-Signing Physician Notes I personally interviewed and examined the patient. I agree with history of present illness and physical exam mentioned above, I also performed my own history taking and examination. Past medical history and review of system has been obtained by myself I reviewed all pertinent labs and studies Reviewed current medications I discussed and formulated of the assessment and plan mentioned above. Please refer to the Summary mentioned below. 53-year-old man with past medical history of end-stage renal disease on hemodialysis after feeling renal transplant, diabetes mellitus type 2, essential hypertension, dyslipidemia, obesity and suspected obstructive sleep apnea. Was having hemodialysis today when he developed substernal chest pain referred to his neck and shoulders associated with diaphoresis, nausea, lightheadedness, shortness of breath, abdominal cramp, troponin was negative, lipase was 1000, He was started on gentle IV fluid hydration giving his condition of end-stage renal disease, will give only 40 cc/h normal saline, EKG showed nonspecific ST-T wave changes, will follow up troponin, keep n.p.o. for bowel rest, morphine for pain management, If no cardiac cath is planned after ceramic tile installation helper see him, then I believe giving his vague abdominal symptoms and chronic occasional vomiting, recommend a CT scan abdomen and pelvis with contrast followed by dialysis. Placed a consult for ceramic tile installation helper tomorrow And follow-up on lipase General Appearance: Obese in mild acute distress Eyes: normal Sclerae, extraocular muscle intact ENT: hearing grossly normal Neck: supple Respiratory/Chest: normal air entry bilateral ,no respiratory distress, no accessory muscle use Cardiovascular: regular rate, rhythm, no murmur Abdomen: Epigastric tenderness soft, no masses Extremities: no edema musculoskeletal: no significant swelling or inflammation in any joint Neurologic/Psychiatric: Awake alert oriented times place and person moves all extremities sensation intact cranial nerves II-12 appear to be intact Skin: normal color, warm/dry, no rash Tenisha Trejo MD, [facility] hospitalist group Resident Activity Tracking Resident Involvement: Resident Care Provided Care Provided: Adult Hospital Medicine (1) Pancreatitis Acute pancreatitis complication: unspecified Chronicity: acute Pancreatitis type: unspecified pancreatitis type Qualified Code(s): K85.90 - Acute pancreatitis without necrosis or infection, unspecified (2) Chest pain Chest pain type: unspecified Qualified Code(s): R07.9 - Chest pain, unspecified
[2019-08-18] MEDS ORDERED: POLYETHYLENE (MIRALAX) 17 GM PACK PO PRN (20:08)
[2019-08-18] MEDS ORDERED: ONDANSETRON INJ 2 MG/ML 2 ML VIAL IV PRN (20:08)
[2019-08-18] MEDS ORDERED: LACTATED RINGER'S 1,000 ML IV SCH (20:08)
[2019-08-18] MEDS ORDERED: ACETAMINOPHEN 325 MG TAB PO PRN (20:08)
[2019-08-18] MEDS: FAMOTIDINE 20 MG in SYRINGE 3 ML IV SCH (20:34)
[2019-08-18] MEDS: MoRPHine SULFATE 2 MG/ML CARP IV PRN ×2 (20:36→23:52)
[2019-08-18] MEDS: HEPARIN SOD 5,000 UNIT/0.5 ML VIAL SQ SCH (21:19)
--- NOTE | 2019-08-18 22:25 | Billing Data ---
Coding Level of Care Code 78828 Initial Inpt Care Lvl 3
[2019-08-18] MEDS: SODIUM CHLORIDE 0.9% 1000ML 1,000 ML IV SCH (22:35)
[2019-08-19 03:11] LABS: Alanine Aminotransferase 13 U/L (12-78); Albumin Globulin Ratio 0.8 (0.9-2); Albumin Level 3.6 gm/dl (3.4-5.0); Alkaline Phosphatase 92 U/L (45-117); Aspartate Aminotransferase 15 U/L (15-37); BUN Creatinine Ratio 3.7 (10-20); Bilirubin,Total 0.6 mg/dl (0.2-1); Blood Urea Nitrogen 36 mg/dl (7-18); Calcium 8.9 mg/dl (8.5-10.1); Carbon Dioxide 32 mmol/L (21-32); Chloride 91 mmol/L (98-107); Creatinine Clr Calc Pharmacy 9.8 ml/min; Est GFR (African American) 6.1; Est GFR (Non-African American) 5.3; Globulin 4.4 gm/dl (2.5-4.0); Glucose 89 mg/dl (70-99); Lipase 242 U/L (73-393); Potassium 4.8 mmol/L (3.5-5.1); Sodium 133 mmol/L (136-145); Troponin I < 0.015 ng/ml (0-0.045)
--- NOTE | 2019-08-19 08:08 | Hospitalist Progress Note ---
Date of Service August 19, 2019 Assessment & Plan (1) Chest pain: Concern for unstable angina versus [place] versus GERD versus costochondritis. Per patient recent stress test about a month ago normal at outside facility. Echo and stress test 2017: Normal EF 55 to 60%, moderate LVH. - Troponins neg x 3 - Echo pending - Cardiology consulted - No further testing at this time. (2) Pancreatitis: Patient has epigastric pain and awake abdominal pain mainly in the right upper quadrant and right lower quadrant, reports daily vomiting. History of colon resection in the setting of diverticulitis around 2007. Gallbladder ultrasound: Normal gallbladder & mild hepatic steatosis. - Lipase 1115 - Continue IV fluids - Slowly advance diet - Pain control - On 08/19, lipase down to 242. - Discussed with Dr. Hayward - Would like GI consult and CT a/p. (3) End stage renal disease: Received HD on 08/18. Normally gets HD on [facility]. - Nephrology consulted - Likely HD tomorrow. - Continue sevelamer (4) Hypertension: BP presently 125/80. - Continue home metoprolol (5) Kidney transplant failure: Back on HD. - As above (6) Diabetes mellitus: Per notes. - Started on SSI - Get A1c (7) DVT prophylaxis: Heparin 5000 units subcut BID Subjective Had some dry heaving this morning, otherwise no further chest pain. Reports no fevers/chills, chest pain, shortness of breath, abdominal pain. Physical Exam Constitutional: WD/WN, vitals as above Eyes: EOM intact bilaterally; no conjunctival abnormality ENMT: external ear and nose normal, oropharynx normal Neck: trachea midline, no thyromegaly normal visual inspection Respiratory: normal respiratory effort, lungs clear to auscultation no respiratory distress Cardiovascular: RRR, no murmur, no edema Gastrointestinal (Abdomen): Inspection/Auscultation: abdomen normal to inspection, + abdomen distended and normal bowel sounds Percussion/Palpation: + abdomen tender and abdomen soft; no guarding and abdomen not rigid Musculoskeletal: no cyanosis or clubbing, extremities motor strength 5/5 Skin: no rashes, warm and dry Neurologic: moves all extremities and awake Psychiatric: Orientation: alert, oriented to person and cooperative Results & Data Vital Signs (Past 12 Hours) Vital Signs Temp Pulse Pulse Resp BP Pulse Ox Pulse Ox 08/19/19 07:45 36.4 C L 73 18 124/78 98 08/19/19 04:00 36.5 C 79 20 123/81 95 08/19/19 00:10 82 08/19/19 00:00 36.4 C L 84 20 130/84 94 08/18/19 23:51 81 116/73 08/18/19 21:52 95 H 08/18/19 20:15 36.4 C L 88 18 125/85 95 95 PG Care Time/CCT Total # of Minutes Spent Total Time Spent with Patient: Total time spent is greater than 50% in coordination of care (as documented) at patient's floor/unit and/or counseling patient: (1) Pancreatitis Acute pancreatitis complication: unspecified Chronicity: acute Pancreatitis type: unspecified pancreatitis type Qualified Code(s): K85.90 - Acute pancreatitis without necrosis or infection, unspecified (2) Chest pain Chest pain type: unspecified Qualified Code(s): R07.9 - Chest pain, unspecified
[2019-08-19] MEDS ORDERED: PERFLUTREN LIPID MICROSPHERE (DEFINITY) IV ONE (08:38)
[2019-08-19] MEDS: FAMOTIDINE 20 MG in SYRINGE 3 ML IV SCH ×2 (08:58→20:56)
[2019-08-19] MEDS: HEPARIN SOD 5,000 UNIT/0.5 ML VIAL SQ SCH ×2 (08:59→20:57)
[2019-08-19] MEDS: METOPROLOL SUCC 25MG EXT REL TAB PO SCH (08:59)
[2019-08-19] MEDS: SEVELAMER HCL 800 MG TABLET PO SCH ×3 (08:59→17:13)
--- NOTE | 2019-08-19 09:38 | Cardiology Consultation ---
Date of Consultation August 19, 2019 Assessment & Plan (1) Chest pain: I suspect his chest pain is noncardiac. By report he recently had a negative stress test, his symptoms are not exertional, they lasted 20 minutes and there is no evidence on electrocardiography or troponin that he had myocardial injury. Normally we would see some sort of electrocardiographic or troponin changes with that duration of cardiac chest pain, especially at rest. I would not pursue cardiac catheterization at this time and I do not think another stress test is worthwhile. I would follow him clinically and if he has recurrence we may be forced to alter our approach. History of Present Illness Reason for Consultation: Chest Pain Attending Physician: Paolo Miramontes MD History of Present Illness This is a 53-year-old gentleman who has a history of long-standing renal failure with a renal transplant in 2007 which has been rejected and he is back on hemodialysis. He has long-standing hypertension, diabetes mellitus and hypercholesterolemia. He has no known cardiovascular disease but has risk factors of diabetes mellitus, hypertension and a strong family history. In November 2016 at dialysis he developed substernal chest discomfort and was sent to [facility]. He reported having substernal chest discomfort with radiation up through the left side of his neck, not to his left shoulder or arm or to his back. His cardiac enzymes were negative, his electrocardiograms did not show progression and he has had no further chest discomfort. He had a stress echo (which he had had before as well) which showed no ischemia although at a low heart rate. He evidently has had intermittent chest discomfort over the last 2-1/2 years although we did not see him here or in the office. I understand that he has had a recent stress test which is negative for ischemia. I am not sure if he has had a cardiac catheterization in the past, he is not clear about it but he describes something which could have been a catheterization. It was not here. He now presents with another episode of chest discomfort occurring on dialysis which he describes as a squeezing sensation in his mid chest with radiation to his neck. He says that this is different from anything he has had before, although the description sounds almost identical to what I recorded in 2017. He says that it lasted about 20 minutes, he has had no exertional chest discomfort, it resolved spontaneously and has not recurred. Electrocardiograms show no acute changes, he has had 3 troponins drawn over 14 hours with no elevation (less than 0.015). At the time of my evaluation this morning he had had no further chest discomfort and no other cardiovascular symptoms. Allergies Allergy/AdvReac Type Severity Reaction Status Date / Time adhesive Allergy Mild SKIN Verified 12/24/18 13:43 IRRITATION aspirin AdvReac Mild NOSE BLEED Verified 12/24/18 13:43 Home Medications Home Medications Medication Instructions Recorded Confirmed Type loperamide [Imodium A-D] 2 mg PO Q3H PRN 12/21/18 08/18/19 History metoprolol succinate 25 mg PO DAILY 12/21/18 08/18/19 History calcitriol 0.25 mcg PO 3XWK 08/18/19 08/18/19 History sevelamer carbonate [Renvela] 2,400 mg PO TIDM 08/18/19 08/18/19 History Patient History Medical History Accelerated hypertension (Acute) Anemia due to chronic kidney disease (Chronic) Diabetes mellitus (Acute) Diverticulosis (Chronic) Encounter for hemodialysis for ESRD End stage renal disease (Chronic) Esophageal reflux (Chronic) ESRD (end stage renal disease) on dialysis (Acute) ESRD on hemodialysis History of diverticulitis (Acute) Hx of malignant melanoma of skin (Acute) Hx of malignant skin melanoma (Chronic) Hypercholesterolemia (Chronic) Hyperglycemia (Chronic) Hyperparathyroidism (Chronic) Hypertension (Chronic) Inhibited sexual excitement (Chronic) Kidney transplant failure (Chronic) Postsurgical renal dialysis status (Chronic) Surgical History History of bowel resection (Acute) History of kidney transplant (Acute) Social History Preferred Language: Angolan Communication Ability: Effective 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 He is overweight. HEENT: Unremarkable Neck: No jugular venous distention, carotid pulses are normal and equal bilaterally without bruits. Pulmonary: Clear to auscultation bilaterally. Cardiac: Regular rhythm with a grade 2/6 crescendo decrescendo murmur at the base, no gallop or rub. Abdomen: Soft, nontender with normal bowel sounds. Extremities: No edema. Distal pulses intact. He has a left arm fistula. Neurologic: No focal findings. Gait was not tested. Skin: No rash, ecchymoses or petechiae. Results & Data Vital Signs (Past 12 Hours) Vital Signs Temp Pulse Pulse Resp BP Pulse Ox 08/19/19 07:45 36.4 C L 73 18 124/78 98 08/19/19 04:00 36.5 C 79 20 123/81 95 08/19/19 00:10 82 08/19/19 00:00 36.4 C L 84 20 130/84 94 08/18/19 23:51 81 116/73 08/18/19 21:52 95 H Diagnostic Findings An electrocardiogram August 18, 2019 at 1449 shows sinus rhythm at 84 bpm with left atrial enlargement and poor R wave progression, probable LVH. An echocardiogram today block shows a hyperdynamic left ventricle with concentric left ventricular hypertrophy and aortic sclerosis without stenosis. Telemetry: Sinus rhythm, rate generally in the 70s. PG Care Time/CCT Total # of Minutes Spent Total Time Spent with Patient: Total time spent is greater than 50% in coordination of care (as documented) at patient's floor/unit and/or counseling patient: (1) Chest pain Chest pain type: unspecified Qualified Code(s): R07.9 - Chest pain, unspecified
--- NOTE | 2019-08-19 11:07 | Consultation Report ---
DATE OF CONSULTATION: 08/19/2019 PROBLEM LIST: 1. End-stage renal disease. 2. History of malignancy midback, probable melanoma. 3. History of depression. 4. Hypercholesterolemia. 5. Diverticulosis with history of perforation. 6. Hypertension. SUBJECTIVE: Mr. Levy is a 53-year-old gentleman well known to me. He was referred down and admitted yesterday from the [place] dialysis unit where he receives his regular treatments for end-stage renal disease. Apparently late in the course of his dialysis treatment, he developed substernal chest pain radiating to his jaw and left shoulder, accompanied by some diaphoresis and mild shortness of breath. He was referred to the Emergency Room. He was admitted for care. His EKG showed some nonspecific findings. Troponins have been negative thus far. Mr. Levy has a history of known chronic renal insufficiency dating back at least to the year 1999 and likely much further. In 1999, he was recognized as having chronic renal disease. His renal function was significantly reduced and therefore renal biopsy was not done. It was presumed that he had chronic glomerulonephritis. He was hypertensive at the time of his diagnosis. His blood pressure was brought under control, but his renal function nevertheless slowly deteriorated. He developed uremic symptomatology. Despite conservative treatment, he was started on maintenance dialysis in 2004. His dialysis was essentially uncomplicated. In August of 2005, he developed an episode of abdominal pain and was felt to have acute diverticulitis. He was treated with antibiotics with some improvement. In February of 2007, he once again developed symptoms of diverticulitis. At that time, he was found to have a perforated diverticulum with abscess formation. The abscess was drained here by Dr. Jacob Martinez and a colostomy was done. He did remarkably well after his surgery and his colostomy was taken down later that year. In 2007, he received a donor transplant at the [facility]. He did remarkably well with that and was faithful with keeping most of his appointments at least for the first several years after getting the transplant. Unfortunately, because of financial issues, he became more lax in followup visits as well as getting laboratory studies done. In January of 2016, he presented with symptoms of uremia and volume overload. At that time, he admitted that he was not taking immunosuppressive medications predominantly because of financial reasons. He was treated acutely with high dose steroids and immunosuppressant drugs were resumed. Nevertheless, he never regained his renal function and had to be started back on maintenance dialysis. He has been doing reasonably well on maintenance dialysis and is currently dialyzed at the [place] dialysis unit. For the most part, his dialysis treatments are uncomplicated at least until the current episode. Mr. Levy has been lax with regard to taking certain medications, particularly antihypertensives in the form of beta blockers and also with his phosphate binding antacids. Nevertheless, his numbers have looked reasonably well and recently, he was placed on the active transplant list at [facility]. As part of his transplant workup, he has had a recent stress Cardiolite with stress echocardiogram which was apparently unremarkable. In the past, he has also had a gallbladder evaluation and found to have an essentially normal gallbladder with no stones. He has not had recurrent symptoms of diverticulitis. According to his ; however, he does get intermittent paroxysms of the sudden onset of nausea and a need to vomit. Occasionally, he will vomit some bilious material and occasionally he only develops dry heaves. This is likely to occur in the mornings. It is not necessarily associated with any problems of chest pain or abdominal pain. Until today, he never reported these to me until I witnessed an episode during my interview and exam. From the standpoint of his maintenance dialysis, his treatments are uncomplicated except for the recent episode. Blood pressures have been somewhat variable. His laboratory work looks reasonably good except for his hyperphosphatemia and elevated PTH. He is on the regular medication program as previously outlined. His episode of chest pain yesterday began late in his treatment. The onset was sudden and occurred as described above. Interestingly, he had a similar episode in November of 2016. It also occurred late in his dialysis treatment. He was having chest pain and was referred here. He ruled out for myocardial infarction. His cardiac workup was otherwise unremarkable. At the current time, he says that he is feeling relatively well. He is having occasional twinges of pain that radiate from his lower sternum up into his chest. He is currently n.p.o. for possible further studies. He has been seen by cardiology and apparently a cardiac catheterization is not being recommended. His regular medications include calcitriol 0.25 mcg 3 times a week, Imodium on a p.r.n. basis, metoprolol succinate 25 mg daily and Renvela 2400 mg with each meal. He tries to follow his renal diet and has been relatively compliant. ALLERGIES: No definite known medical allergies. He did have a nosebleed after taking aspirin. He does get regularly anticoagulated with heparin for each of his dialysis treatments. As a dialysis patient, he does get intermittent Parsabiv to help with his elevated PTH level. Additionally, he gets erythropoietin although he has not been on it for quite some time. The remainder of his past history not described above is essentially unremarkable and noncontributory. OBJECTIVE: GENERAL: On physical examination, Mr. Levy appears as an overweight middle-aged gentleman who does appear perhaps a bit younger than his stated age of 53. When seen by me, he was lying quietly in bed and answered questions appropriately. He developed the sudden onset of nausea and retching, but did not vomit anything more than some apparent saliva. VITAL SIGNS: His blood pressure was 124/78 with a pulse of 73 and regular, respiratory rate was 18, his pulse ox 98% on room air. He is afebrile (36.4). SKIN: Shows essentially normal skin turgor. He has a right lower quadrant scar from a kidney transplant. He has a left upper arm AV fistula which is grossly dilated and functioning well. He has a large scar over the mid back in the area of the lower thoracic and upper lumbar vertebrae from the removal of a cutaneous malignancy many years ago. He has scars on his abdomen for his surgery for diverticular disease with his colostomy and takedown. He has no obvious rash or infiltrative skin disease. LYMPHATICS: Show no palpable lymphadenopathy. HEAD: Normal. EYES: Grossly normal. He has no conjunctival icterus. His conjunctivae are not pale. Pupils are equal and reactive to light. The ocular fundi were not examined. CHEST: Clear to auscultation. He has no wheezes, rales or rhonchi. Diaphragms are somewhat elevated related to his body habitus. CARDIAC: Shows a regular rhythm. S1 and S2 are normal. He has a soft systolic murmur at the base radiating toward the neck. Additionally, he has a continuous murmur radiating into his chest from his left upper arm AV fistula. That murmur is obliterated by occluding the fistula. ABDOMEN: Obese. It is not particularly tender, although after my palpation of his abdomen, he did develop his sudden onset of vomiting. He has no organomegaly or mass. Bowel sounds are normal. GENITAL AND RECTAL: Not done. His rectal exam was recently normal in my office. EXTREMITIES: Show no cyanosis, clubbing or peripheral edema. He has a left upper arm AV fistula that functions well. NEUROLOGIC: Unremarkable with no lateralizing changes. Deep tendon reflexes are equal and symmetrical and his sensory exam is normal as well. CURRENT LABORATORY WORK: Shows a white blood cell count on admission of 5030 with a normal differential. His hemoglobin at the time of admission was 17.0 with a hematocrit of 49.9 (this was immediately after his dialysis treatment where he did undergo significant volume reduction). His platelet count is 182,000. His prothrombin time is 10.2 with an INR of 1.0. His PTT 25.1 with a PTTR of 0.9. Clinical chemistries from this morning show a sodium of 133 mmol/L, potassium of 4.8 mmol/L, chloride of 91 mmol/L, and CO2 content of 32 mmol/L. His BUN is 36, his creatinine 9.88. His random blood sugar was 89. His serum calcium is 8.9. His total bilirubin 0.6. His AST is 15. His ALT is 13. His alkaline phosphatase 92. Troponins have been less than 0.015. His total protein this morning was 8.0 with an albumin of 3.6 (of note was a total protein of 9.7 on admission with an albumin of 4.4). However, this was immediately after volume reduction in the dialysis unit. His lipase on admission on 08/18/2019 was 1115, today it is down to the normal range of 2.42. A gallbladder ultrasound done at the time of admission showed no evidence of cholelithiasis or biliary ductal dilatation. There is a question of hepatic steatosis. He has atrophy of his lytton kidney on the right side which was the only one visualized. The chest x-ray showed cardiomegaly with some evidence of volume overload and congestive changes. If anything, these are changes that are resolving related to his recent dialysis treatment. ASSESSMENT: This appears to be another episode of noncardiac chest pain similar to that which occurred in a similar situation in November of 2016. He appears to have ruled out. Stress tests including a recent one have been normal. There is nothing to suggest cardiac ischemia other than his symptomatology. I would look for the potential of a GI etiology, particularly a paraesophageal hernia that could have accounted for his symptoms and may account for the sudden episodes of retching and vomiting which have been occurring in the morning which he did not report. Of note, is the fact that he has had some high blood sugars. However, diabetes mellitus was not the cause of his chronic renal disease. He is obviously overweight and hyperglycemic and I expect he does have a degree of insulin resistance. PLAN: Continue on his routine medications for now. I would do a CT scan of his chest and abdomen looking for another potential source of his symptomatology. We will plan on dialyzing him here tomorrow assuming he stays overnight. If he feels well through the day today and after his treatment tomorrow, he can probably be discharged to home.
--- NOTE | 2019-08-19 12:56 | Gastrointestinal Consultation ---
Date of Consultation August 19, 2019 Assessment & Plan (1) Coffee ground emesis: unclear etiology, possible PUD vs. AVM vs. camerons erosions vs GAVE. (2) Pancreatitis: appears to have been mild if at all, asymptomatic at this time. Recs: diet as tolerated today, NPO post midnight pain control prn. plan for EGD tomorrow to further evaluate coffee ground emesis Thank you for allowing me to participate in the care of this patient History of Present Illness Attending Physician: Paolo Miramontes MD 53 yo male with hx ESRD on dialysis, diverticulitis s/p colon resection, HTN, DM2 here for chest pains. GI consulted for abnormal labs, possible pancreatitis, and coffee ground emesis. Patient noted epigastric pain apparently when he presented, but this has resolved, as he denies any current symptoms. He notes this morning he had one episode of dark coffee ground emesis. No diarrhea, constipation, fevers, chills, sweats, weight loss, hematochezia, melena, hemat emesis. No family hx gastric cancer, PUD, esophageal cancer. Denies smoking. Notes small bowel intussusception as a child with surgery. Denies NSAID abuse nor alcohol abuse. Lipase noted to be 1115 on 08/18. hgb wnl. Imaging shows no gallstones nor biliary dilation on US, noted to have hepatic steatosis. Allergies Allergy/AdvReac Type Severity Reaction Status Date / Time adhesive Allergy Mild SKIN Verified 12/24/18 13:43 IRRITATION aspirin AdvReac Mild NOSE BLEED Verified 12/24/18 13:43 Home Medications Home Medications Medication Instructions Recorded Confirmed Type loperamide [Imodium A-D] 2 mg PO Q3H PRN 12/21/18 08/18/19 History metoprolol succinate 25 mg PO DAILY 12/21/18 08/18/19 History calcitriol 0.25 mcg PO 3XWK 08/18/19 08/18/19 History sevelamer carbonate [Renvela] 2,400 mg PO TIDM 08/18/19 08/18/19 History Patient History Medical History Accelerated hypertension (Acute) Anemia due to chronic kidney disease (Chronic) Diabetes mellitus (Acute) Diverticulosis (Chronic) Encounter for hemodialysis for ESRD End stage renal disease (Chronic) Esophageal reflux (Chronic) ESRD (end stage renal disease) on dialysis (Acute) ESRD on hemodialysis History of diverticulitis (Acute) Hx of malignant melanoma of skin (Acute) Hx of malignant skin melanoma (Chronic) Hypercholesterolemia (Chronic) Hyperglycemia (Chronic) Hyperparathyroidism (Chronic) Hypertension (Chronic) Inhibited sexual excitement (Chronic) Kidney transplant failure (Chronic) Postsurgical renal dialysis status (Chronic) Surgical History History of bowel resection (Acute) History of kidney transplant (Acute) Social History Preferred Language: Faroese Communication Ability: Effective Material Planning Analyst Required: No Beliefs That Will Affect Care: None Current Living Situation: Spouse Other Information That Helps Us Care for You: No Feels Safe at Home: Yes Safety Concerns: Feels Safe At This Time Smoking Status: Never smoker Do You Dip or Chew Tobacco: No ; Second Hand Exposure: No ; Hx Alcohol Use: No Hx Substance Use: No Review of Systems Constitutional: no fever, no chills and no weight loss Eyes: as per Subjective / HPI Ear, Nose, Mouth, Throat: as per Subjective / HPI Respiratory: no dyspnea and no dyspnea on exertion Cardiovascular: no chest pain and no palpitations Gastrointestinal: as per Subjective / HPI Musculoskeletal: no joint pain and no swelling Integumentary: no rash and no lesions Neurologic: no numbness and no paresthesia Psychiatric: no depression and no anxiety Endocrine: no fatigue Hematologic / Lymphatic: no easy bleeding and no easy bruising Physical Exam Constitutional: WD/WN, vitals as above Eyes: EOM intact bilaterally Neck: normal visual inspection Respiratory: normal respiratory effort, lungs clear to auscultation Cardiovascular: RRR, no murmur, no edema Gastrointestinal (Abdomen): Inspection/Auscultation: abdomen normal to inspection; abdomen not distended Percussion/Palpation: abdomen soft; abdomen nontender and no hepatosplenomegaly Musculoskeletal: Extremities: no cyanosis Gait: normal gait Skin: no rashes, warm and dry Neurologic: moves all extremities Psychiatric: A+Ox3, euthymic affect Results & Data Vital Signs (Past 12 Hours) Vital Signs Temp Pulse Resp BP Pulse Ox 08/19/19 07:45 36.4 C L 73 18 124/78 98 08/19/19 04:00 36.5 C 79 20 123/81 95 PG Care Time/CCT Total # of Minutes Spent Total Time Spent with Patient: Total time spent is greater than 50% in coordination of care (as documented) at patient's floor/unit and/or counseling patient: (1) Pancreatitis Acute pancreatitis complication: unspecified Chronicity: acute Pancreatitis type: unspecified pancreatitis type Qualified Code(s): K85.90 - Acute pancreatitis without necrosis or infection, unspecified
[2019-08-19] MEDS ORDERED: IOVERSOL 100ml IV PRN (17:35)
--- NOTE | 2019-08-19 18:00 | CT Scan Report ---
ABDOMEN AND PELVIS CT WITH IV CONTRAST CT DOSE: 987.04 mGy.cm HISTORY: Acutely elevated lipase Elevated lipase, emesis TECHNIQUE: Multiaxial CT images of the abdomen and pelvis were performed following the IV administrat ion of 92 cc of Optiray 320, A dose lowering technique was utilized adhering to the principles of AL ROWENA. COMPARISON STUDY: Right upper quadrant abdominal ultrasound 08/18/2019, CT abdomen pelvis 11/14/2015 FINDINGS: Clear lung bases. No pneumatosis or pneumoperitoneum. Imaged inferior cardiac chambers are unremarkab le with coronary arterial calcifications. Trace pericardial effusion. Mild gallbladder distention. No biliary ductal dilation. Unremarkable liver. Patency of the hepatic and splenic veins. Spleen is enl arged, 13.7 cm in length. Unremarkable appearance of the pancreas. No peripancreatic inflammatory chilango nge or pancreatic ductal dilation. Fatty thickening of the adrenal glands. Marked atrophy of the kaitlynn ve right kidneys. Punctate scattered calcifications of the rampart kidneys with bilateral renal cysts. Urinary bladder wall thickening with partial distention. Transplanted kidney of the right hemipelvis . 2 mm nonobstructing calculus of the superior pole transplanted right kidney. No ureteral calculi or obstructive uropathy. Aorta and IVC are unremarkable. There is no adenopathy. Circumferential wall thickening of the distal esophagus. No bowel obstruction or bowel wall thickenin g. Colonic diverticulosis without acute diverticulitis. Colonic anastomosis of the abdominal left low er quadrant. Noninflamed appendix. No ascites or mesenteric inflammation. Right gynecomastia. Mild no nspecific subcutaneous stranding of the anterior right abdominal wall. Degenerative changes of the sp ine, pelvis and hips. Sclerotic appearance the bones compatible with renal osteodystrophy. Unchanged chronic lesion of the right iliac bone. Advanced multilevel discogenic degeneration. IMPRESSION: 1. No bowel obstruction or bowel wall thickening. Normal appendix. 2. Nonspecific moderate wall thickening of the distal esophagus. Correlate clinically to exclude esop hagitis. 3. Marked atrophy of the rampart bilateral kidneys with transplanted kidney of the abdominal right low er quadrant. There is a punctate nonobstructing calculus of the transplanted superior pole right kidn ey without ureteral calculi or obstructive uropathy. 4. Mild splenomegaly. 5. Renal osteodystrophy. 6. Additional findings as above. Electronically signed by: Vincent Angel M.D. 08/19/2019 5:58 PM
[2019-08-19] MEDS: SODIUM CHLORIDE 0.9% 1000ML 1,000 ML IV SCH (22:51)
[2019-08-19] MEDS: MoRPHine SULFATE 2 MG/ML CARP IV PRN (23:57)
[2019-08-20 06:21] LABS: Hematocrit (blood only) 44.8 % (42-52); Hemoglobin 14.8 g/dL (14.0-18.0); Mean Corpuscular Hemoglobin 29.1 pg (25-34); Mean Platelet Volume 8.8 fL (7.4-10.4); Platelet Count 130 K/uL (130-400); RDW Coefficient of Variation 15.1 % (11.5-14.5); RDW Standard Deviation 48.5 fL (36.4-46.3); Red Blood Count 5.09 M/uL (4.7-6.1); White Blood Count 4.17 K/uL (4.8-10.8)
[2019-08-20 07:02] LABS: BUN Creatinine Ratio 4.6 (10-20); Calcium 9.1 mg/dl (8.5-10.1); Creatinine Clr Calc Pharmacy 7.8 ml/min; Est GFR (African American) 4.6; Magnesium 2.6 mg/dl (1.8-2.4); Potassium 5.7 mmol/L (3.5-5.1)
[2019-08-20 07:21] LABS: Phosphorus 8.1 mg/dl (2.5-4.9)
[2019-08-20] MEDS: SEVELAMER HCL 800 MG TABLET PO SCH ×3 (07:25→19:44)
[2019-08-20] MEDS: HEPARIN SOD 5,000 UNIT/0.5 ML VIAL SQ SCH ×2 (07:25→20:42)
[2019-08-20] MEDS: METOPROLOL SUCC 25MG EXT REL TAB PO SCH (07:38)
--- NOTE | 2019-08-20 08:30 | History & Physical Bridge Note ---
Date of Service August 20, 2019 History & Physical Bridge Note I have examined the patient, reviewed the History & Physical and in the interval since the performance of the History & Physical I have noted the following changes of clinical significance: no changes noted Proceed with EGD. risks/benefits and procedure discussed with patient, who agrees to proceed
[2019-08-20] MEDS: FAMOTIDINE 20 MG in SYRINGE 3 ML IV SCH ×2 (08:57→20:45)
[2019-08-20] MEDS ORDERED: CALCITRIOL 0.25 MCG CAPSULE PO SCH (09:00)
[2019-08-20] MEDS ORDERED: SODIUM CHLORIDE 0.9% 1000ML 1,000 ML IV PRN (09:21)
[2019-08-20] MEDS ORDERED: HEPARIN SOD (PORCINE) 1000 UNIT/ML 10 ML VIAL IV SCH (10:00)
--- NOTE | 2019-08-20 10:04 | Progress Note ---
DATE: 08/20/2019 SUBJECTIVE: Mr. Levy says he is feeling relatively well today. He did have somewhat of a bump in his blood pressure late yesterday and was apparently treated with metoprolol. He has had no further problems with chest pain. He did have a small amount of coffee-ground emesis. He has had no further problems with abdominal pain. OBJECTIVE: GENERAL: On physical exam, he appears relatively well. He is an obviously overweight middle-aged gentleman who was certainly in no distress, awaiting his EGD. CURRENT VITAL SIGNS: Showed a blood pressure of 140/92 with a pulse of 65 and regular, his respiratory rate was 18, his pulse ox 95% on room air. He is afebrile. SKIN: Shows scars from prior surgical procedures including a large scar in the mid back over the lower thoracic and upper lumbar areas. He has a left arm AV fistula with multiple dialysis needle track kyle over the fistula. He has scars on his abdomen from his surgery for diverticular disease with his colostomy and takedown. He has no specific rash or infiltrative skin disease. His skin turgor is normal. LYMPHATICS: Show no palpable adenopathy. HEAD: Normal. EYES: Grossly normal. He has no conjunctival icterus. Pupils are equal and reactive to light. The fundi were not examined. EARS, NOSE, MOUTH, AND THROAT: All unremarkable. Oral mucous membranes are moist. NECK: Supple. He has no jugular venous distention, carotid bruit or thyromegaly. The exam is limited somewhat by his body habitus. CHEST: Clear to auscultation. CARDIAC: Shows a regular rhythm. S1 and S2 are normal. He has a soft systolic murmur at the base radiating toward the neck. He has a continuous murmur radiating into the upper left chest from his left arm AV fistula. That murmur is obliterated by occluding the fistula. ABDOMEN: Obese. It is nontender. He has no obvious organomegaly or mass. EXTREMITIES: Show no cyanosis, clubbing or peripheral edema. He has a left upper arm AV fistula that functions well. NEUROLOGIC: Unremarkable with no lateralizing changes. PERTINENT LABORATORY WORK: From today shows a white count of 4170. His hemoglobin is 14.8, his hematocrit 44.8, his platelet count 130,000. His clinical chemistries show a sodium of 133 mmol/L, potassium 5.7 mmol/L, chloride is 94 mmol/L, and CO2 content 25 mmol/L. His BUN is 58 and his creatinine 12.50. His random blood sugar this morning is 75. His serum calcium is 9.1, his phosphate 8.1, his magnesium is 2.6. He did have an abdominal and pelvis CT scan done. That apparently showed no evidence of bowel obstruction or bowel wall thickening. However, he did have a nonspecific moderate wall thickening of the distal esophagus. Kaw kidneys as expected are atrophic bilaterally. His transplanted kidney is in the right lower quadrant. He has mild splenomegaly. There is some questionable findings of hepatic steatosis. ASSESSMENT: Certainly, it appears of a coronary event has been ruled out and cardiology does not feel that further evaluation is necessary at this time. For his transplant status, he is getting regular stress echocardiograms and that will continue. He will be having an EGD done today. I am still concerned about the possibility of a paraesophageal hernia. PLAN: No change for now. He will have the EGD today. Assuming that is uncomplicated, he will have his dialysis done today and if stable, should be able to be discharged on his regular medications with the addition of anything that GI would suggest. I will follow him carefully as an outpatient at the [facility] dialysis unit.
--- NOTE | 2019-08-20 10:30 | Anesthesiology Consultation ---
Date of Service August 20, 2019 Assessment & Plan (1) Encounter for pre-operative examination: Chart Review Chart Review: Acceptable Risk for Surgery and Patient NOT seen in Pre Admission Testing Consults Requested none History Surgery Operation Date: 08/20/19 13:35 Proposed Procedures p Esophagogastroduodenoscopy Dr. Kimmie Burks MD Height/Weight Height: 5 ft 8 in Weight: 103.2 kg Allergies Allergy/AdvReac Type Severity Reaction Status Date / Time adhesive Allergy Mild SKIN Verified 12/24/18 13:43 IRRITATION aspirin AdvReac Mild NOSE BLEED Verified 12/24/18 13:43 Medications Home Medications Medication Instructions Recorded Confirmed Last Taken loperamide [Imodium A-D] 2 mg PO Q3H PRN 12/21/18 08/18/19 Unknown metoprolol succinate 25 mg PO DAILY 12/21/18 08/18/19 Unknown calcitriol 0.25 mcg PO 3XWK 08/18/19 08/18/19 Unknown sevelamer carbonate [Renvela] 2,400 mg PO TIDM 08/18/19 08/18/19 Unknown Active Medications Generic Name Dose Route Start Last Admin Trade Name Freq PRN Reason Stop Dose Admin Acetaminophen 650 mg 08/18/19 20:08 08/19/19 09:01 Tylenol PO 09/17/19 20:07 650 mg Q4H PRN Administration Pain or Fever Calcitriol 0.25 mcg 08/20/19 09:00 08/20/19 09:40 Rocaltrol PO 09/19/19 08:59 Not Given MoWeFr@0900 [facility] Heparin Sodium (Porcine) 5,000 units 08/18/19 21:00 08/20/19 07:25 Heparin Sodium (Porcine) SQ 09/17/19 20:59 Not Given Q12 RUS[facility] Famotidine 20 mg/ Syringe 5 mls @ 2.5 mls/min 08/18/19 21:00 08/20/19 08:57 IV 09/17/19 20:59 Not Given BID RUSSELL Sodium Chloride 1,000 mls @ 40 mls/hr 08/18/19 22:00 08/19/19 22:51 Nss 1000ml IV 09/17/19 21:59 40 mls/hr .Q24H RUSSELL Administration Ioversol 92 ml 08/19/19 17:35 08/19/19 17:36 Optiray 320 100ml IV 08/23/19 17:34 92 ml ONCE PRN Administration Interaction Checking Metoprolol Succinate 25 mg 08/19/19 09:00 08/20/19 07:38 Toprol Xl PO 09/18/19 08:59 25 mg DAILY RUSSELL Administration Morphine Sulfate 2 mg 08/18/19 19:29 08/19/19 23:57 Morphine Sulfate IV 09/01/19 19:28 2 mg Q3H PRN Administration Pain Sevelamer HCl 2,400 mg 08/19/19 08:00 08/20/19 07:25 Renagel PO 09/18/19 07:59 Not Given TIDM RUSSELL NPO Date Last Intake of Fluids: 08/20/19 Time Last Intake of Fluids: 08:15 Date Last Intake of Solids: 08/16/19 Time Last Intake of Solids: 18:00 Past Medical History Medical History Accelerated hypertension (Acute) Anemia due to chronic kidney disease (Chronic) Diabetes mellitus (Acute) Diverticulosis (Chronic) Encounter for hemodialysis for ESRD End stage renal disease (Chronic) Esophageal reflux (Chronic) ESRD (end stage renal disease) on dialysis (Acute) ESRD on hemodialysis History of diverticulitis (Acute) Hx of malignant melanoma of skin (Acute) Hx of malignant skin melanoma (Chronic) Hypercholesterolemia (Chronic) Hyperglycemia (Chronic) Hyperparathyroidism (Chronic) Hypertension (Chronic) Inhibited sexual excitement (Chronic) Kidney transplant failure (Chronic) Postsurgical renal dialysis status (Chronic) Past Surgical History Surgical History History of bowel resection (Acute) History of kidney transplant (Acute) Social History Smoking Status: Never smoker Do You Dip or Chew Tobacco: No Hx Alcohol Use: No Alcohol type: beer and wine alcohol intake frequency: holidays/special occasions only Hx Substance Use: No substance use type: does not use Physical Exam Vital Signs Last Vital Signs Temp 36.5 C 08/20/19 07:54 Pulse 68 08/20/19 09:37 Resp 20 08/20/19 09:37 BP 162/93 H 08/20/19 09:37 Pulse Ox 98 08/20/19 09:37 Testing Laboratory Results 08/20/19 06:02 11/15/19 06:02 PT 10.2 Seconds (9.0-12.0) 08/18/19 16:02 INR 1.0 (0.9-1.1) 08/18/19 16:02 APTT 25.1 Seconds (21.0-31.0) 08/18/19 16:02
[2019-08-20] MEDS ORDERED: ATROPINE SULFATE 0.1 MG/ML 10ML SYR IV PRN (10:32)
[2019-08-20] MEDS ORDERED: ePHEDrine sulfate 50 MG/ML AMP IV PRN (10:32)
[2019-08-20] MEDS ORDERED: DEXTROSE 50% 50 ML SYRINGE IV ONE (10:47)
--- NOTE | 2019-08-20 12:31 | Anesthesiology Progress Note ---
Date of Service August 20, 2019 The procedure was aborted when the patient became diaphoretic and began dry- heaving before the anesthetic was administered. His FBS was 62. He was given zofran his iv fluid was switched to d5W at a slow rate. He was sent back to the floor to await going to the main o. r. and intubation. Anesthesia Post Procedure Vital Signs Vital Signs: Temp Pulse Pulse Resp BP BP Pulse Ox 08/20/19 11:21 36.5 C 68 18 125/81 95 08/20/19 09:37 68 20 162/93 H 98 08/20/19 08:00 65 08/20/19 07:54 36.5 C 67 18 140/92 95 08/20/19 04:00 36.7 C 68 20 111/74 95 08/20/19 00:10 71 08/20/19 00:02 36.6 C 69 20 132/88 95 08/19/19 19:29 36.5 C 72 18 142/87 H 96 08/19/19 15:41 62 08/19/19 15:28 36.5 C 62 19 121/78 96 Pain Intensity Chest: Pain Intensity: 4
--- NOTE | 2019-08-20 13:45 | Anesthesiology Progress Note ---
Date of Service August 20, 2019 Subjective Patient was originally scheduled for sedation, but developed nausea and vomiting immediately prior to procedure in GI lab. Decision was made to reschedule case in the operating room, but the patient is currently acutely hyperkalemic due to need for dialysis. (Potassium was normal 2 days ago at 3.6). Elective rapid sequence intubation puts the patient at risk for a perioperative cardiac event with his degree of hyperkalemia. I spoke with Dr. Chambers who did not feel that an EGD was needed emergently at this time. Therefore, plan was made to dialyze the patient and to reschedule the EGD when the patient is more appropriately optimized. Kendal Guardado MD, PhD Anesthesiologist Physical Exam Vital Signs: Last Vital Signs Temp 36.5 C 08/20/19 11:21 Pulse 68 08/20/19 11:21 Resp 18 08/20/19 11:21 BP 125/81 08/20/19 11:21 Pulse Ox 95 08/20/19 11:21 Results & Data Medications Administered Acetaminophen (Tylenol) 650 mg PO Q4H PRN PRN Reason: Pain or Fever Stop: 09/17/19 20:07 Last Admin: 08/19/19 09:01 Dose: 650 mg Documented by: [id number] Calcitriol (Rocaltrol) 0.25 mcg PO MoWeFr@0900 [facility] Stop: 09/19/19 08:59 Last Admin: 08/20/19 09:40 Dose: Not Given Documented by: [id number] Heparin Sodium (Porcine) (Heparin Sodium (Porcine)) 5,000 units SQ Q12 [facility] Stop: 09/17/19 20:59 Last Admin: 08/20/19 07:25 Dose: Not Given Documented by: [id number] Admin: 08/19/19 20:57 Dose: 5,000 units Documented by: [id number] Cosigned by: [id number] Admin: 08/19/19 08:59 Dose: 5,000 units Documented by: [id number] Cosigned by: [id number] Admin: 08/18/19 21:19 Dose: 5,000 units Documented by: [id number] Cosigned by: [id number] Famotidine 20 mg/ Syringe 5 mls @ 2.5 mls/min IV BID [facility] Stop: 09/17/19 20:59 Last Admin: 08/20/19 08:57 Dose: Not Given Documented by: [id number] Admin: 08/19/19 20:56 Dose: 2.5 mls/min Documented by: [id number] Admin: 08/19/19 08:58 Dose: 2.5 mls/min Documented by: [id number] Admin: 08/18/19 20:34 Dose: 2.5 mls/min Documented by: [id number] Sodium Chloride (Nss 1000ml) 1,000 mls @ 40 mls/hr IV .Q24H [facility] Stop: 09/17/19 21:59 Last Admin: 08/19/19 22:51 Dose: 40 mls/hr Documented by: [id number] Infusion: 08/19/19 22:51 Dose: 0 mls/hr Documented by: [id number] Admin: 08/18/19 22:35 Dose: 40 mls/hr Documented by: [id number] Ioversol (Optiray 320 100ml) 92 ml IV ONCE PRN PRN Reason: Interaction Checking Stop: 08/23/19 17:34 Last Admin: 08/19/19 17:36 Dose: 92 ml Documented by: [id number] Metoprolol Succinate (Toprol Xl) 25 mg PO DAILY [facility] Stop: 09/18/19 08:59 Last Admin: 08/20/19 07:38 Dose: 25 mg Documented by: [id number] Admin: 08/19/19 08:59 Dose: 25 mg Documented by: [id number] Morphine Sulfate (Morphine Sulfate) 2 mg IV Q3H PRN PRN Reason: Pain Stop: 09/01/19 19:28 Last Admin: 08/19/19 23:57 Dose: 2 mg Documented by: [id number] Admin: 08/18/19 23:52 Dose: 2 mg Documented by: [id number] Admin: 08/18/19 20:36 Dose: 2 mg Documented by: [id number] Sevelamer HCl (Renagel) 2,400 mg PO TIDM [facility] Stop: 09/18/19 07:59 Last Admin: 08/20/19 11:19 Dose: Not Given Documented by: [id number] Admin: 08/20/19 07:25 Dose: Not Given Documented by: [id number] Admin: 08/19/19 17:13 Dose: 2,400 mg Documented by: [id number] Admin: 08/19/19 12:14 Dose: 2,400 mg Documented by: [id number] Admin: 08/19/19 08:59 Dose: 2,400 mg Documented by: [id number]
[2019-08-20] MEDS ORDERED: D5W AND NSS 1,000 ML IV SCH (14:15)
--- NOTE | 2019-08-20 15:18 | Hospitalist Progress Note ---
Date of Service August 20, 2019 Assessment & Plan (1) Pancreatitis: Patient has epigastric pain and awake abdominal pain mainly in the right upper quadrant and right lower quadrant, reports daily vomiting. History of colon resection in the setting of diverticulitis around 2007. Gallbladder ultrasound: Normal gallbladder & mild hepatic steatosis. - Lipase 1115, then normalized. - Unclear if the nausea and vomiting is related to pancreas or not. He had some further episodes with lower BS (68) in the endoscopy suite. Perhaps volatile blood sugars are causing symptoms. - EGD pending today. (2) Diabetes mellitus: Per notes; however, his blood sugar has actually been running low in the hospital. - Get A1c - Possibly low blood sugars are the cause of his nausea and vomiting. (3) Chest pain: Concern for unstable angina versus LA versus GERD versus costochondritis. Per patient recent stress test about a month ago normal at outside facility. Echo and stress test 2017: Normal EF 55 to 60%, moderate LVH. - Troponins neg x 3 - Echo on 08/19 showed mild LVH, EF 65-70%, and mild aortic valve sclerosis. - Cardiology consulted - No further testing at this time. (4) End stage renal disease: Received HD on 08/18. Normally gets HD on [id number]. - Nephrology consulted - Likely HD today. - Continue sevelamer (5) Hypertension: BP presently 125/80. - Continue home metoprolol (6) Kidney transplant failure: Back on HD. - As above (7) DVT prophylaxis: Heparin 5000 units subcut BID Subjective Had a difficult night with some confusion from his pain medication. Now feeling fairly well though tired. No further joint/muscle pain. Had some nausea and emesis with low blood sugars. Reports no fevers/chills, chest pain, shortness of breath. Physical Exam Constitutional: WD/WN, vitals as above Eyes: EOM intact bilaterally; no conjunctival abnormality ENMT: external ear and nose normal, oropharynx normal Neck: trachea midline, no thyromegaly normal visual inspection Respiratory: normal respiratory effort, lungs clear to auscultation no respiratory distress Cardiovascular: RRR, no murmur, no edema Gastrointestinal (Abdomen): Inspection/Auscultation: abdomen normal to inspection, + abdomen distended and normal bowel sounds Percussion/Palpation: + abdomen tender and abdomen soft; no guarding and abdomen not rigid Musculoskeletal: no cyanosis or clubbing, extremities motor strength 5/5 Skin: no rashes, warm and dry Neurologic: moves all extremities and awake Psychiatric: Orientation: alert, oriented to person and cooperative Results & Data Vital Signs (Past 12 Hours) Vital Signs Temp Pulse Pulse Resp BP BP Pulse Ox 08/20/19 11:21 36.5 C 68 18 125/81 95 08/20/19 09:37 68 20 162/93 H 98 08/20/19 08:00 65 08/20/19 07:54 36.5 C 67 18 140/92 95 08/20/19 04:00 36.7 C 68 20 111/74 95 PG Care Time/CCT Total # of Minutes Spent Total Time Spent with Patient: Total time spent is greater than 50% in coordination of care (as documented) at patient's floor/unit and/or counseling patient: (1) Chest pain Chest pain type: unspecified Qualified Code(s): R07.9 - Chest pain, unspecified (2) Pancreatitis Acute pancreatitis complication: unspecified Chronicity: acute Pancreatitis type: unspecified pancreatitis type Qualified Code(s): K85.90 - Acute pancreatitis without necrosis or infection, unspecified
[2019-08-20] MEDS: HEPARIN SOD (PORCINE) 1000 UNIT/ML 10 ML VIAL IV SCH ×3 (16:15→18:20)
[2019-08-21] MEDS: SEVELAMER HCL 800 MG TABLET PO SCH ×2 (08:28→11:57)
[2019-08-21] MEDS: FAMOTIDINE 20 MG in SYRINGE 3 ML IV SCH (08:28)
[2019-08-21] MEDS: HEPARIN SOD 5,000 UNIT/0.5 ML VIAL SQ SCH (08:28)
[2019-08-21] MEDS: METOPROLOL SUCC 25MG EXT REL TAB PO SCH (08:28)
--- NOTE | 2019-08-21 15:17 | Discharge Summary ---
Date of Service August 21, 2019 Admission HPI Per Admitting Provider 53-year-old male with history of end-stage renal disease due to DM 2 and hypertension status post failed renal transplant and 2007, hyperlipidemia, bowel resection secondary to diverticulitis in 2007 and melanoma presents with chest pain which started today around 12:30 PM while he was at dialysis. Chest pain radiated up and down sternum to both sides of neck, arms and shoulders. Described as pressure-like, intermittent lasting for about 1 to 2 minutes each time. Associated with diaphoresis, nausea, lightheadedness, shortness of breath. Patient also complaining of abdominal and leg cramps, chronic constip ation. Upon further questioning he also reports daily vomiting. Reports having a bowel movement today which was soft, brown and nonbloody. Lately patient has been having more shortness of breath on exertion. Denies any fever, chills, diarrhea, dysuria, hematuria. Per patient he had recent stress test about a month ago in preparation for transplant at outside facility which was normal as far as he knows. Patient got hemodialysis today for about 3-1/2 hours usually gets 4 hours Friday. Denies any lower extremity edema. She has never smoked and reports occasional alcohol use 1-2 times per year Principal Diagnosis Nausea and emesis - Unclear etiology Discharge Exam Constitutional WD/WN, vitals as above Eyes EOM intact bilaterally; no conjunctival abnormality ENMT external ear and nose normal, oropharynx normal Neck trachea midline, no thyromegaly normal visual inspection Respiratory normal respiratory effort, lungs clear to auscultation no respiratory distress Cardiovascular RRR, no murmur, no edema Gastrointestinal (Abdomen) Inspection/Auscultation: abdomen normal to inspection, + abdomen distended and normal bowel sounds Percussion/Palpation: + abdomen tender and abdomen soft; no guarding and abdomen not rigid Musculoskeletal no cyanosis or clubbing, extremities motor strength 5/5 Skin no rashes, warm and dry Neurologic moves all extremities and awake Psychiatric Orientation: alert, oriented to person and cooperative Discharge Data Allergies Allergy/AdvReac Type Severity Reaction Status Date / Time adhesive Allergy Mild SKIN Verified 12/24/18 13:43 IRRITATION aspirin AdvReac Mild NOSE BLEED Verified 12/24/18 13:43 Consultations 08/18/19 17:04 ED Decision to Admit Stat 08/18/19 20:08 Consult Cardiology Routine 08/19/19 08:05 Consult Nephrology Routine 08/19/19 10:16 Consult Gastroenterology Routine Procedures Performed Operation Date: 08/20/19 11:40 <No data on this case meets the specified criteria> Operation Date: 08/20/19 13:35 <No data on this case meets the specified criteria> Ordered Studies 08/18/19 16:22 US gallbladder Stat 08/19/19 10:16 CT abd pelvis IV con only Routine Hospital Course (1) Nausea & vomiting: Patient has epigastric pain and awake abdominal pain mainly in the right upper quadrant and right lower quadrant, reports daily vomiting. History of colon resection in the setting of diverticulitis around 2007. Gallbladder ultrasound: Normal gallbladder & mild hepatic steatosis. - Lipase 1115, then normalized. GI did not feel it was pancreatitis. - EGD planned, but stopped for dry heaving and then for potassium of 5.7. - Possibly due to GERD - CT a/p showed esophageal thickening. - Discharged on PPI PO BID to see if this helps. - Plan for GI follow up with EGD in the near future. - Hypoglycemia also possible. (2) Hypoglycemia: On 08/20, he had persistent hypoglycemia down to the low 60s which seemed to correlate with his nausea and dry heaving. He had received no insulin prior to this. - The plan was to have him fast for >8 hours and get labs (BMP, insulin level, C-peptide, beta-hydroxybutyrate, and pro-insulin level) when his blood sugar was <65 and symptomatic. However, then overnight despite not having any dextrose- containing fluids or anything to eat, he remained normoglycemic and had no symptoms. - Could consider monitoring symptoms and blood sugars during dialysis and order these labs if he has any issues. Unclear cause of his hypoglycemia at this time. (3) Diabetes mellitus: Per patient, he only had diabetes while on steroids for his renal transplant. - Planned to get A1c, but he refused his AM labs before discharge. (4) Chest pain: Concern for unstable angina versus GA versus GERD versus costochondritis. Per patient, recent stress test about a month ago normal at outside facility. Echo and stress test 2017: Normal EF 55 to 60%, moderate LVH. - Troponins neg x 3 - Echo on 08/19 showed mild LVH, EF 65-70%, and mild aortic valve sclerosis. - Cardiology consulted - No further testing at this time. (5) End stage renal disease: Received HD on 08/18. Normally gets HD on [facility]. - Continued sevelamer (6) Hypertension: BP presently 150/80. - Continued home metoprolol (7) Kidney transplant failure: Back on HD. - As above (8) DVT prophylaxis: Heparin 5000 units subcut BID Total Time Total Time Spent Total Time Spent (In Minutes): 45 Discharge Plan Discharge Items Patient Disposition: Home - Self-Care Reason For Visit: CHEST PAIN,ELEVATED LIPASE Discharge Diagnosis: Nausea and vomiting Non-cardiac chest pain Activity: Resume your previous activity Non-emergency contact: Primary Care Provider and [employer] Consultant Call non-emergency contact if: your symptoms worsen, your pain is worsening and your temperature is above 101 Follow-up/Referrals: Yoav Hayward MD [Primary Care Provider] - Charles Burks MD [Physician] - 09/07/19 10:00 am (Please, follow up at [facility] Gastro[facility]ology Office with Dr. Burks on FridaySeptember 07 at 10:00 am. *The office is located at [address] [place] [address] in [place]. If you need to change this appointment, call the office at [phone].) Diet: Dialysis Renal and Heart Healthy Addtl Attending Provider Instructions: Please follow up with the GI doctor at the visit scheduled. Follow up with Dr. Hayward - You may be able to get those labs we talked about at dialysis. Take the pantoprazole two times per day until you see the GI doctor. Pending Studies at Discharge: No Stand-Alone Forms: Call Back Authorization, [facility], Smoking Cessation Medications and DC Order Prescriptions: New pantoprazole 40 mg tablet,delayed release (DR/EC) 40 mg PO BID Qty: 60 RF: 0 Continued loperamide [Imodium A-D] 2 mg Capsule 2 mg PO Q3H PRN (Reason: Constipation) RF: 0 metoprolol succinate 25 mg Tablet Extended Release 24 Hr 25 mg PO DAILY RF: 0 calcitriol 0.25 mcg Capsule 0.25 mcg PO 3XWK RF: 0 sevelamer carbonate [Renvela] 800 mg tablet 2,400 mg PO TIDM RF: 0 Discharge Orders: Discharge Order (Routine); Ordered 08/21/19 Ordered By: Paolo Miramontes Admission Data Admit Date/Time: 08/18/19 19:28 Attending Provider: Paolo Miramontes Admit Provider: Tenisha Mendoza Primary Care Provider: Yoav Hayward Other Providers: Amado Neri ; Paolo Miramontes ; Neo Loomis ; German Stern se Other Interventions: Discharge Summary Assessment (RN) Last Done: 08/21/19 10:13
== END 2019-08-21 15:59 | disposition home or self-care (01) | DRG 391 ==
LOC: ED 13:39 → 2N 19:28 → SUATTDRO 19:28 → 2N 19:43

== ENCOUNTER 2019-12-13 09:00 | Inpatient (IN) ==
[2019-12-13 09:53] LABS: Basophils # (auto) 0.01 K/uL (0-0.2); Basophils % (auto) 0.1 %; Eosinophils # (auto) 0.09 K/uL (0-0.5); Eosinophils % (auto) 1.3 %; Hematocrit (blood only) 31.1 % (42-52); Immature Granulocytes # (auto) 0.03 K/uL (0.00-0.02); Immature Granulocytes % (auto) 0.4 %; Lymphocytes # (auto) 0.52 K/uL (1.2-3.4); Lymphocytes % (auto) 7.7 %; Mean Corpuscular Hemoglobin 28.2 pg (25-34); Mean Corpuscular Hgb Conc 32.2 g/dL (32-36); Mean Corpuscular Volume 87.9 fL (80-100); Mean Platelet Volume 8.5 fL (7.4-10.4); Monocytes # (auto) 0.24 K/uL (0.11-0.59); Monocytes % (auto) 3.6 %; Neutrophils # (auto) 5.85 K/uL (1.4-6.5); Neutrophils % (auto) 86.9 %; Platelet Count 207 K/uL (130-400); RDW Coefficient of Variation 15.6 % (11.5-14.5); RDW Standard Deviation 50.4 fL (36.4-46.3); Red Blood Count 3.54 M/uL (4.7-6.1); White Blood Count 6.74 K/uL (4.8-10.8)
[2019-12-13] MEDS ORDERED: ONDANSETRON INJ 2 MG/ML 2 ML VIAL IV STA (09:55)
[2019-12-13 09:59] LABS: INR 1.1 (0.9-1.1); Partial Thromboplastin Time 28.7 Seconds (21.0-31.0); Prothrombin Time 11.3 Seconds (9.0-12.0)
[2019-12-13] MEDS ORDERED: METOPROLOL SUCC 25MG EXT REL TAB PO SCH (10:00)
[2019-12-13] MEDS ORDERED: MoRPHine SULFATE 4 MG/ML 1 ML CARP\\VIAL IV STA (10:02)
--- NOTE | 2019-12-13 10:11 | XRay Report ---
XR chest 1V portable CLINICAL HISTORY: Atypical chest pain COMPARISON STUDY: 10/14/2019 FINDINGS: The heart is enlarged. There is diffuse elevation of interstitium, slightly asymmetric on t he right. This is likely secondary to congestive failure/fluid overload. An interstitial infectious/i nflammatory processes could appear similar but is statistically less likely. Clinical and radiographi c follow-up is recommended. There is no lobar consolidation. There are no pleural effusions.[The bony skeleton appears slightly sclerotic, finding which may be secondary to renal osteodystrophy. IMPRESSION: 1. Cardiomegaly and diffuse elevation of the interstitium, consistent with congestive failure/fluid o verload. Clinical and radiographic follow-up is recommended. ACT 112: Negative or not required by law. Electronically signed by: Shahab Ba M.D. 12/13/2019 10:10 AM
[2019-12-13 10:20] LABS: Blood Urea Nitrogen 54 mg/dl (7-18); Carbon Dioxide 29 mmol/L (21-32); Chloride 98 mmol/L (98-107); Est GFR (African American) 4.5; Potassium 4.8 mmol/L (3.5-5.1); Sodium 136 mmol/L (136-145)
[2019-12-13 10:21] LABS: Alanine Aminotransferase 10 U/L (12-78); Albumin Globulin Ratio 0.8 (0.9-2); Albumin Level 3.3 gm/dl (3.4-5.0); Alkaline Phosphatase 88 U/L (45-117); Aspartate Aminotransferase 9 U/L (15-37); BUN Creatinine Ratio 4.2 (10-20); Bilirubin,Total 0.5 mg/dl (0.2-1); Calcium 8.5 mg/dl (8.5-10.1); Creatinine Clr Calc Pharmacy 7.7 ml/min; Est GFR (Non-African American) 3.9; Globulin 4.1 gm/dl (2.5-4.0); Glucose 115 mg/dl (70-99); Lipase 514 U/L (73-393); NT Pro B Type Natriuretic Pept 21656 pg/ml (0-900); Total Protein 7.4 gm/dl (6.4-8.2); Troponin I < 0.015 ng/ml (0-0.045)
[2019-12-13] MEDS ORDERED: fentaNYL citrate 100 MCG/2 ML VIAL IV STA (10:21)
--- NOTE | 2019-12-13 10:34 | CT Scan Report ---
CT abd pelvis wo con CLINICAL HISTORY: 54 years-old Male presenting with generalized abdominal pain, one month history of nausea, vomiting, diarrhea, sent from dialysis, atypical chest pain and shortness of breath. TECHNIQUE: Multidetector CT of the abdomen and pelvis was performed without the use of intravenous co ntrast. IV contrast: None. One or more dose lowering techniques were used consistent with the princip les of ALA (as low as reasonably achievable), including automatic exposure control, mA or kV adjust ment to individual patient size, and/or use of iterative reconstruction. COMPARISON: 08/19/2019. CT DOSE (mGy.cm): The estimated cumulative dose is 752.99 mGy.cm. FINDINGS: [employer]ger topogram: Unremarkable. Lung bases: Mild multichamber enlargement of the heart. Coronary artery, aortic valve, and mitral betzy ular calcification. Trace pericardial effusion. Small right and trace left pleural effusions. Pulmona ry vascular prominence. Patchy nodular groundglass opacities throughout the lung bases. Smooth interl obular septal thickening. Liver: Normal morphology. Normal density. Biliary: No gross biliary ductal dilatation allowing for noncontrast technique. Normal gallbladder. Pancreas: Mild parenchymal atrophy. Spleen: Normal noncontrast appearance. Splenule noted. Adrenal glands: Thickening of the adrenal glands with fat deposition, unchanged. This could suggest c hronic inflammation of the adrenal glands. Kidneys and ureters: Severe atrophy with multiple underlying cysts. Prominent renovascular calcificat ion. Few nonobstructing calculi may also be present. No hydronephrosis. Ureters nondistended. Evidenc e of a right lower quadrant transplant kidney. No hydronephrosis. Urothelial thickening of the transp lant ureter suspected. Bladder: Circumferential bladder wall thickening. Pelvic organs: Normal noncontrast appearance. Calcification of the vasa deferentia likely indicates u nderlying diabetes. Bowel: Colocolonic anastomosis at the upper rectum likely indicating partial sigmoidectomy. Diverticu losis of the residual proximal sigmoid and descending colon as well as to a lesser extent in the romana donny of the colon. No wall thickening or pericolonic inflammatory change. The appendix is normal. No bowel obstruction. Persistence circumferential wall thickening of the esophagus, which is moderate t o severe. Peritoneal cavity: No free fluid or intraperitoneal gas. Lymph nodes: No gross lymphadenopathy allowing for noncontrast technique. Vasculature: Atherosclerosis of the normal caliber abdominal aorta. Abdominal wall: Postsurgical changes of the midline ventral abdominal wall and right lower quadrant. Musculoskeletal: Degenerative changes of the spine. Diffuse sclerosis of the medullary bone consisten t with underlying renal osteodystrophy. Sclerosis in the right ilium may be slightly more extensive. Erosive changes of the endplates in the lumbar spine likely relate to hemodialysis associated amyloid arthropathy. Similar findings at the pubic symphysis. IMPRESSION: 1. Extensive patchy nodular groundglass infiltrates at the lung bases. Other findings of vascular en gorgement and interlobular septal thickening favor moderate pulmonary edema and congestive change. Pl ease ensure the absence of infectious symptoms. Consider dedicated chest CT. 2. Allowing for noncontrast technique, no acute intra-abdominal pathology. 3. Severe grayling renal atrophy and right lower quadrant renal transplant. No hydronephrosis. 4. Postsurgical changes of partial sigmoidectomy. 5. Pancolonic diverticulosis without evidence of diverticulitis. 6. Moderate to severe circumferential wall thickening of the esophagus. While this may represent eso phagitis, gastroenterology consultation for possible nonurgent esophagogastroduodenoscopy recommended . 7. 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 8. Chronic sclerotic lesion in the right ilium, slightly increased from prior, possibly osteonecrosi s among other etiologies. ACT 112: Negative or not required by law. Electronically signed by: Noé Gunn M.D. 12/13/2019 10:32 AM
[2019-12-13] MEDS ORDERED: HEPARIN SOD (PORCINE) 1000 UNIT/ML 10 ML VIAL IV SCH (11:04)
[2019-12-13] MEDS ORDERED: SODIUM CHLORIDE 0.9% 1000ML 1,000 ML IV PRN (11:04)
--- NOTE | 2019-12-13 11:31 | History & Physical Report ---
Date of Service December 13, 2019 Assessment & Plan (1) Acute respiratory failure: Admit to PCU on telemetry, Vital signs every 4 hours, Continue supplemental oxygen to keep oxygenation above 88%, Plan to have hemodialysis today, Acute respiratory failure most likely due to volume overload, Continue monitoring electrolytes and replenish DVT prophylaxis patient is on heparin for hemodialysis Robitussin for cough Full code Present on Admission?: Yes (2) Pneumonia: Based on CT abdomen and pelvis there were groundglass opacities and infiltrates located by laterally in the patient lungs. Will do CT without contrast Started ceftriaxone 2 g IV daily and doxycycline 100 mg p.o. twice daily empirically for possible pneumonia, Sputum culture blood culture pending, If no leukocytosis or positive blood culture and sputum culture will discontinue empirically started antibiotics for possible pneumonia. Robitussin for cough Albuterol HFA 2 puffs twice daily every 4 hours as needed for shortness of breath Symbicort 2 puffs twice daily Present on Admission?: Yes (3) Osteonecrosis: Chronic sclerotic lesion in the right ilium slightly increased from prior possibly osteonecrosis. Consult orthopedics Present on Admission?: Yes (4) Esophagitis: Moderate to severe circumferential wall thickening of the esophagus. Possible esophagitis. Consult GI Present on Admission?: Yes (5) Volume overload: Patient is going through hemodialysis today. Hold metoprolol while patient is in hemodialysis. Present on Admission?: Yes (6) ESRD (end stage renal disease) on dialysis: As discussed above. Consult nephrology. Patient's dialysis schedule is Friday and Friday . Present on Admission?: Yes (7) Anemia due to chronic kidney disease: Stable, H&H 08/05, likely due to end-stage renal disease. She denies any internal bleeding hemoptysis, melena, bruising, hematuria or hematochezia. Continue monitoring Present on Admission?: Yes (8) Hypercholesterolemia: Fasting lipid panel pending. Patient is not on statins. Evaluate for need of statin s/p lipid panel result. Present on Admission?: Yes (9) Diabetes mellitus type 2 in nonobese: Patient is not on insulin , Accu-Cheks before meals and at bedtime, diabetic diet, sliding scale insulin if needed based on patient weight. Present on Admission?: Yes (10) Hyperparathyroidism: PTH pending, Continue monitoring Present on Admission?: Yes (11) Hypertension: Patient takes metoprolol succinate 25 mg p.o. every morning. Hold metoprolol while patient is in dialysis. Hold metoprolol if heart rate is less than 65 bpm and patient is going for dialysis. Hypertensive urgency in the ER most likely due to volume overload and need for dialysis. Continue monitoring blood pressure every 4 hours. 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 Present on Admission?: Yes History of Present Illness Chief Complaint: Shortness of breath and volume overload Primary Care Provider: Yoav Hayward MD The patient is a 54 years old male with past medical history of end-stage renal disease, diabetes mellitus type 2, hypercholesterolemia, hypothyroidism, hypertension, kidney transplant failure, who presents to the emergency room with a complaint of shortness of breath. Patient reports that he feels short of breath for almost 1 month. Patient does not wear oxygen at home but now he requires 2 L at rest. He also complains of some nausea and vomited once or twice since this morning. Patient denies fever, chills, chest pain, diarrhea, melena, hemoptysis, syncope, or near syncope. The labs are reviewed: WBCs 6.74, hemoglobin 10, hematocrit 31.1, platelets 207, PT 11.3, INR 1.1, APTT 28.7, sodium 136, potassium 4.8, chloride 98, carbon dioxide 29, anion gap 9, BUN 54, creatinine 12.7, GFR 3.9,Glucose 115, calcium 8.5, total bilirubin 0.5, AST 9, ALT 10, alkaline phosphatase 88, troponin 0.015, BNP 96233, albumin 3.3, globulin 4.1, albumin globulin ratio 0.6, lipase 514, TSH pending. Chest x-ray is show cardiomegaly and diffuse elevation of the interstitium, consistent with congestive heart failure/fluid overload. There is no lobar consolidation. There is no pleural effusion. CT scan of abdomen and pelvis show extensive patchy nodular groundglass infiltrates at the lung bases. Other findings of vascular engorgement and interlobular septal thickening favor moderate pulmonary edema and congestive changes. Please ensure the absence of infectious symptoms. Consider dedicated chest CT. Following for noncontrast technique no acute intra-abdominal pathology. Severe [place] renal atrophy and right lower quadrant renal transplant. No hydronephrosis. Postsurgical changes of the partial sigmoid colectomy. Pancolonic diverticulosis without evidence of diverticulitis. Moderate to severe circumstantial wall thickening of the es ophagus this may represent esophagitis gastroenterology consultation for possible nonsurgeon as a viable gastroduodenoscopy recommended renal osteodystrophy and hemodialysis associated with weight atrophy in the spine. Chronic sclerotic changes of the right ilium. Slightly increased from prior. Possibly osteonecrosis among other etiologies. The decision was made to admit patient to PCU on telemetry for volume overload, hypertensive urgency, thickening of the esophageal wall-esophagitis. Allergies Allergy/AdvReac Type Severity Reaction Status Date / Time adhesive Allergy Mild SKIN Verified 12/13/19 09:45 IRRITATION morphine AdvReac Intermediate Verified 12/13/19 09:45 aspirin AdvReac Mild NOSE BLEED Verified 12/13/19 09:45 Home Medications Home Medications Medication Instructions Recorded Confirmed Type metoprolol succinate 25 mg PO QAM 12/21/18 12/13/19 History sevelamer carbonate [Renvela] 2,400 mg PO TIDM 08/18/19 12/13/19 History Parsabiv 12.5 mg IV 3XWK 10/13/19 12/13/19 History Past Med/Surg History Medical History Anemia due to chronic kidney disease Chronic back pain Diabetes mellitus diet controlled Diverticulosis Esophageal reflux controlled ESRD (end stage renal disease) on dialysis (Acute) Diaylsis clinic [facility]/-- History of blood transfusion 4 years ago (in setting of plasmaphoresis for kidney issues) History of diverticulitis (Acute) 10+ years ago Hx of malignant skin melanoma Hypercholesterolemia Hyperparathyroidism Hypertension Kidney transplant failure Obesity Osteoarthritis Surgical History H/O radical excision of skin lesion back r/t melanoma History of bowel resection (Acute) r/t diverticulitis History of cataract surgery bilateral History of colonoscopy History of colostomy History of colostomy reversal ~2006 History of esophagogastroduodenoscopy (EGD) 08/20/19: MAC sedation at [facility] History of kidney transplant (Acute) ~2008 S/P arteriovenous (AV) fistula creation left arm Family History Mother Family history of diabetes mellitus Father FHx: myocardial infarction, Onset Age: 69 Other No family history of adverse response to anesthesia Denies family history of Crohn's disease Colorectal cancer Ulcerative colitis Social History Preferred Language: Bulgarian Communication Ability: Effective 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: No Beliefs That Will Affect Care: None Current Living Situation: Spouse Other Information That Helps Us Care for You: No Feels Safe at Home: Yes Safety Concerns: Feels Safe At This Time Smoking Status: Never smoker Second Hand Exposure: Yes (hx as a child) ; Hx Alcohol Use: No Hx Substance Use: No Review of Systems Review of Systems: All systems reviewed & are unremarkable except as noted in HPI & below Physical Exam Constitutional: WD/WN, vitals as above well developed, + ill appearing and + obese Looking older than his age Eyes: PERRL, conjunctivae normal, anicteric sclerae ENMT: external ear and nose normal, oropharynx normal Neck: trachea midline, no thyromegaly Respiratory: normal respiratory effort, lungs clear to auscultation Cardiovascular: Heart Sounds: normal S1, normal S2 and + murmur Palpation: + palpable S3 Vessels: dorsalis pedis pulses present Gastrointestinal (Abdomen): normal bowel sounds, soft, nontender, no hepatosplenomegaly Musculoskeletal: no cyanosis or clubbing, extremities motor strength 5/5 Skin: no rashes, warm and dry Neurologic: patellar DTR's 2+ bilat, sensation intact Psychiatric: A+Ox3, euthymic affect Lymphatic: no cervical or axillary lymphadenopathy Results & Data Vital Signs (Past 12 Hours) Vital Signs Temp Pulse Resp BP Pulse Ox 12/13/19 10:31 62 19 90 12/13/19 10:30 60 18 197/103 H 92 12/13/19 10:18 59 L 18 201/103 H 99 12/13/19 10:01 61 20 99 12/13/19 10:00 62 20 191/105 H 96 12/13/19 09:38 98 12/13/19 09:31 61 19 203/95 H 94 12/13/19 09:30 58 L 18 93 12/13/19 09:10 36.5 C 64 22 183/98 H 97 12/13/19 09:07 61 17 12/13/19 09:05 62 17 183/98 H Code Status & VTE Plan Code Status Full code VTE Prophylaxis Plan VTE Prophylaxis will be ordered: Yes PG Care Time/CCT Total # of Minutes Spent Total Time Spent with Patient: Total time spent is greater than 50% in coordination of care (as documented) at patient's floor/unit and/or counseling patient: Coding Level of Care Code 84089 Initial Inpt Care Lvl 3 Diagnoses Acute respiratory failure J96.00 Pneumonia J18.9 Osteonecrosis M87.9 Esophagitis K20.9 Volume overload E87.70 Hypervolemia type: unspecified ESRD (end stage renal disease) on dialysis N18.6; Z99.2 Anemia due to chronic kidney disease N18.9; D63.1 Hypercholesterolemia E78.00 Diabetes mellitus type 2 in nonobese E11.9 Hyperparathyroidism E21.3 Hypertension I10 (1) Volume overload Hypervolemia type: unspecified Qualified Code(s): E87.70 - Fluid overload, unspecified
[2019-12-13] MEDS ORDERED: MAGNESIUM HYDROXIDE SUSP 30 ML UDC PO PRN (12:49)
[2019-12-13] MEDS ORDERED: ACETAMINOPHEN 325 MG TAB PO PRN (12:49)
[2019-12-13] MEDS ORDERED: ALBUTEROL HFA 8 GM INHALER INH PRN (12:49)
[2019-12-13] MEDS ORDERED: GUAIFENESIN/DEXTROM SYRUP 200MG/20MG 10ML UDC PO PRN (12:49)
[2019-12-13] MEDS ORDERED: ONDANSETRON INJ 2 MG/ML 2 ML VIAL IV PRN (12:49)
[2019-12-13] MEDS ORDERED: ALUMINUM/MAGNESIUM SUSP 30 ML UDC PO PRN (12:49)
[2019-12-13] MEDS ORDERED: POLYETHYLENE (MIRALAX) 17 GM PACK PO PRN (12:49)
[2019-12-13] MEDS: SEVELAMER HCL 800 MG TABLET PO SCH ×2 (13:00→19:15)
--- NOTE | 2019-12-13 13:51 | Nephrology Consultation ---
Date of Consultation December 13, 2019 Assessment & Plan (1) ESRD (end stage renal disease) on dialysis: Mr. 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 He had a transplant which was lost because of poor compliance. He is back on a transplant list. He is being dialyzed 3 times a week. He presents now with increasing shortness of breath and a chest x-ray consistent with significant volume overload. We will plan to hemodialyze him today and remove significant amounts of fluid. This should both control his hypertension as well as significantly improve the changes of pulmonary edema and volume overload that are noted and decrease his cough and shortness of breath. He should be continued on his usual medications. No antihypertensive should be given during his dialysis treatment. I think it is unlikely that he is having an acute coronary syndrome particularly given the several cardiac evaluations that he has had at [place], here in August 2019 and recently at [facility]. Of particular concern are his repeated episodes of GI symptomatology and evidence of circumferential narrowing of his distal esophagus. Quite clearly, he is going to need an EGD to examine his distal esophagus to see if it is simply the changes of chronic peptic esophagitis or something far more serious. Thank you for allowing me to participate with his inpatient care, I will follow him with you. (2) Hypertension: History of Present Illness Attending Physician: Sofiya Tavarez MD History of Present Illness Mr. Levy is a 54-year-old gentleman who is well-known to me. He was admitted via the emergency room with problems of increasing shortness of breath and chest tightness. Mr. Levy has a history of known chronic renal insufficiency dating back at least to the year 1999 and likely much further. In 1999 he was recognized as having advanced chronic renal disease. A biopsy was not done because of the severity of his renal failure. It was presumed that he had chronic glomerulonephritis. He was hypertensive at the time of his presentation and diagnosis. His blood pressure was brought under control but his renal function nevertheless continued to deteriorate. He developed uremic symptomatology. Despite conservative treatment he was started on maintenance dialysis in 2004. His dialysis was essentially uncomplicated. In August 2005 he developed an episode of abdominal pain that was recognized as being related to acute diverticulitis. He was treated with antibiotics with some improvement. In February 2007, he had a similar episode. At that time he was found to have a perforated diverticulum with abscess formation. The abscess was drained here by Dr. Jacob Martinez and a colostomy was done. The colostomy was taken down later that year. In 2007, he received a donor transplant at the [facility]. He did remarkably well with that and was faithful to keeping most of his appointments at least for the first several years after his transplant. Unfortunately, because of financial issues, he became lax in follow-up visits as well as getting laboratory studies done. Additionally, he could not afford his medications and yet did not report that either to me or to the [facility] where he was also being followed. In January 2016, he presented with symptoms of uremia and volume overload. At that time, he admitted that he was not taking immunosuppressive medications predominantly because of his financial reasons. He was treated acutely with high-dose steroids and immunosuppressant drugs were resumed. Nonetheless, he never regained his renal function and was started back on maintenance dialysis. He has been doing fairly well on maintenance dialysis and is currently dialyzed at the [facility] dialysis unit 3 times a week. Dialysis treatments are generally uncomplicated at least until recently. Mr. Levy has been somewhat lax regarding taking certain medications, particularly his antihypertensives. However, he says that he has been taking them regularly for the past several months. For the most part, that includes his beta-blockers. He is also been lax with using phosphate binding antacids but says that he is improved with that as well. [facility] [place] and recently was placed on the active transplant list. As part of his transplant work-up, he had a recent stress Cardiolite which was apparently unremarkable. In the past, he also had a gallbladder evaluation and was found to have an essentially normal gallbladder with no stones. According to his , he has intermittent paroxysms of the sudden onset of nausea and need to vomit. Occasionally he will vomit some bilious material and occasionally he develops only dry heaves. This is most likely to occur in the mornings. It is not associated with any other problems of abdominal pain although he will occasionally have relatively severe chest pains. He was admitted here in August 2019 with a similar episode. During that admission, he had a cardiac evaluation which was unremarkable. Because of his GI symptoms, he was to have been endoscoped but apparently that was not done for reasons that are not clear to me. From the standpoint of his maintenance dialysis, his treatments are generally uncomplicated. Blood pressures have been somewhat variable. His lab work has been reasonably acceptable for a dialysis patient except for hyperphosphatemia of varying degrees and an elevated PTH. His PTH has improved recently with the addition of Parsabiv. Earlier this month, he was admitted to [facility] in 2 boys complaining of shortness of breath. Apparently, he had a cardiac evaluation then including another stress test which was unremarkable. He was not dialyzed while he was there and he was discharged. He says that since that time, he has been persistently short of breath. He denies having PND or orthopnea. He says he can sleep on his right side. He gets significant dyspnea with exertion. He has not had significant lower extremity edema. He has been getting by with his routine dialysis treatments. However, over the past weekend, he developed increasing shortness of breath and a tightness around his chest. For that reason, he came to the emergency room. He does have a cough productive of small amounts of clear sputum. He was to have been dialyzed earlier today at [facility]. Regular medications include calcitriol 0.25 mcg 3 times a week, metoprolol succinate 50 mg twice daily and Renvela 2400 mg with each meal. He tries to follow his renal diet and has been relatively compliant. He has no known medication allergies. His review of systems is significant for the GI symptomatology noted above. Additionally, he has a history of a malignancy that was present on his mid back. He had extensive plastic surgery for this. It is presumed that it was a malignant melanoma. Allergies Allergy/AdvReac Type Severity Reaction Status Date / Time adhesive Allergy Mild SKIN Verified 12/13/19 09:45 IRRITATION morphine AdvReac Intermediate Verified 12/13/19 09:45 aspirin AdvReac Mild NOSE BLEED Verified 12/13/19 09:45 Home Medications Home Medications Medication Instructions Recorded Confirmed Type metoprolol succinate 25 mg PO QAM 12/21/18 12/13/19 History sevelamer carbonate [Renvela] 2,400 mg PO TIDM 08/18/19 12/13/19 History Parsabiv 12.5 mg IV 3XWK 10/13/19 12/13/19 History Patient History Medical History Anemia due to chronic kidney disease Chronic back pain Diabetes mellitus diet controlled Diverticulosis Esophageal reflux controlled ESRD (end stage renal disease) on dialysis (Acute) Diaylsis clinic [facility]/-- History of blood transfusion 4 years ago (in setting of plasmaphoresis for kidney issues) History of diverticulitis (Acute) 10+ years ago Hx of malignant skin melanoma Hypercholesterolemia Hyperparathyroidism Hypertension Kidney transplant failure Obesity Osteoarthritis Surgical History H/O radical excision of skin lesion back r/t melanoma History of bowel resection (Acute) r/t diverticulitis History of cataract surgery bilateral History of colonoscopy History of colostomy History of colostomy reversal ~2006 History of esophagogastroduodenoscopy (EGD) 08/20/19: MAC sedation at [facility] History of kidney transplant (Acute) ~2008 S/P arteriovenous (AV) fistula creation left arm Family History Mother Family history of diabetes mellitus Father FHx: myocardial infarction, Onset Age: 69 Other No family history of adverse response to anesthesia Denies family history of Crohn's disease Colorectal cancer Ulcerative colitis Social History Preferred Language: [place] Citizen Communication Ability: Effective 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 Levy appears relatively comfortable when seen. However, he was complaining of shortness of breath. His blood pressure is 174/108 in the semi-Oglesby position. His pulse is 63 and regular. Respiratory rate is 19 with a pulse ox of 95% on room air. He is afebrile. His skin is unremarkable other than scars from prior surgical procedures. Most notably that is on his abdomen from his surgery for diverticulitis as well as on his back from the removal of his cutaneous tumor. He also has a left upper arm AV fistula with multiple dialysis needle track kyle over the fistula. His skin turgor is normal. He has no palpable lymphadenopathy. His head is normal. Eyes are grossly normal. He does have some mild conjunctival injection. The conjunctivae are not pale. His pupils react to light. The fundi were not examined. Ears, nose, mouth and throat are all unremarkable. Oral mucous membranes are moist. His neck is supple. I see no jugular venous distention but the exam is limited by his body habitus. I hear no carotid bruit. There is no thyromegaly. His chest exam shows bibasilar rales. I hear no wheezes or rhonchi. Cardiac exam shows a regular rhythm. S1 and S2 are normal. He has a soft systolic murmur at the base radiating toward the neck. He has a continuous murmur radiating into his chest from his left upper arm AV fistula. That murmur is obliterated by occluding the fistula. His abdomen is obese. It is nontender. There is no organomegaly or mass. Bowel sounds are normal. Genital and rectal exams were not done. Extremities show trace lower extremity edema. Peripheral pulses are intact. He has a dilated AV fistula in the left upper arm. He has an excellent pulse, thrill and bruit. There is some aneurysmal dilatation at 2 sites. (He did have recent fistula surgery by Dr. Andrew to the lower portion of the AV fistula.) His neurologic exam is unremarkable with no lateralizing changes. Deep tendon reflexes are equal and symmetrical and his sensory exam is normal. Results & Data Vital Signs (Past 12 Hours) Vital Signs Temp Pulse Resp BP Pulse Ox 12/13/19 11:31 63 19 95 12/13/19 11:30 60 19 174/108 H 93 12/13/19 11:01 62 20 93 12/13/19 11:00 58 L 16 191/103 H 97 12/13/19 10:31 62 19 90 12/13/19 10:30 60 18 197/103 H 92 12/13/19 10:18 59 L 18 201/103 H 99 12/13/19 10:01 61 20 99 12/13/19 10:00 62 20 191/105 H 96 12/13/19 09:38 98 12/13/19 09:31 61 19 203/95 H 94 12/13/19 09:30 58 L 18 93 12/13/19 09:10 36.5 C 64 22 183/98 H 97 12/13/19 09:07 61 17 12/13/19 09:05 62 17 183/98 H Diagnostic Findings Laboratory Results - last 24 hr 12/13/19 12/13/19 12/13/19 09:12 09:12 09:12 WBC 6.74 RBC 3.54 L Hgb 10.0 L Hct 31.1 L MCV 87.9 MCH 28.2 MCHC 32.2 RDW Std Deviation 50.4 H RDW Coeff of Lisseth 15.6 H Plt Count 207 MPV 8.5 Immature Gran % (Auto) 0.4 Neut % (Auto) 86.9 Lymph % (Auto) 7.7 [place] % (Auto) 3.6 Eos % (Auto) 1.3 Baso % (Auto) 0.1 Immature Gran # (Auto) 0.03 H Neut # (Auto) 5.85 Lymph # (Auto) 0.52 L [place] # (Auto) 0.24 Eos # (Auto) 0.09 Baso # (Auto) 0.01 PT 11.3 INR 1.1 APTT 28.7 PTT Ratio 1.0 Sodium 136 Potassium 4.8 Chloride 98 Carbon Dioxide 29 Anion Gap 9.0 BUN 54 H Creatinine 12.70 H* Est Cr Clr Drug Dosing 7.7 Est GFR ( Amer) 4.5 Est GFR (Non-Af Amer) 3.9 BUN/Creatinine Ratio 4.2 L Glucose 115 H Calcium 8.5 Total Bilirubin 0.5 AST 9 L ALT 10 L Alkaline Phosphatase 88 Troponin I < 0.015 NT-Pro-B Natriuret Pep 36598 H Total Protein 7.4 Albumin 3.3 L Globulin 4.1 H Albumin/Globulin Ratio 0.8 L Lipase 514 H Procalcitonin TSH 12/13/19 12/13/19 13:08 13:08 WBC RBC Hgb Hct MCV MCH MCHC RDW Std Deviation RDW Coeff of Lisseth Plt Count MPV Immature Gran % (Auto) Neut % (Auto) Lymph % (Auto) [place] % (Auto) Eos % (Auto) Baso % (Auto) Immature Gran # (Auto) Neut # (Auto) Lymph # (Auto) [place] # (Auto) Eos # (Auto) Baso # (Auto) PT INR APTT PTT Ratio Sodium Potassium Chloride Carbon Dioxide Anion Gap BUN Creatinine Est Cr Clr Drug Dosing Est GFR ( Amer) Est GFR (Non-Af Amer) BUN/Creatinine Ratio Glucose Calcium Total Bilirubin AST ALT Alkaline Phosphatase Troponin I NT-Pro-B Natriuret Pep Pending Total Protein Albumin Globulin Albumin/Globulin Ratio Lipase Procalcitonin Pending TSH Pending His chest x-ray shows changes consistent with pulmonary edema and cardiomegaly. A CT scan of his chest additionally shows evidence of circumferential narrowing of the distal esophagus! PG Care Time/CCT Total # of Minutes Spent Total Time Spent: 60 Total Time Spent with Patient: Total time spent is greater than 50% in coordination of care (as documented) at patient's floor/unit and/or counseling patient: Coding Level of Care Code 83434 Initial Inpt Care Lvl 3 Diagnoses ESRD (end stage renal disease) on dialysis N18.6; Z99.2 Hypertension I10
[2019-12-13 13:53] LABS: Thyroid Stimulating Hormone 3.16 uIu/ml (0.300-4.500)
[2019-12-13] MEDS: FLUTICASONE/VILANTEROL 200/25MCG 14 PUFFS/INHALER INH SCH (15:12)
[2019-12-13] MEDS: HEPARIN SOD (PORCINE) 1000 UNIT/ML 10 ML VIAL IV SCH ×3 (15:30→17:48)
--- NOTE | 2019-12-13 15:38 | Electrocardiogram Report ---
Test Reason : Blood Pressure : / mmHG Vent. Rate : 061 BPM Atrial Rate : 061 BPM P-R Int : 206 ms QRS Dur : 088 ms QT Int : 454 ms P-R-T Axes : 039 042 068 degrees QTc Int : 457 ms Normal sinus rhythm Normal ECG When compared with ECG of 18-AUG-2019 14:49, No significant change was found Confirmed by Christopher Jaimes ([id number]) on 12/13/2019 3:38:21 PM Referred By: Confirmed By:Christopher Jaimes
--- NOTE | 2019-12-13 16:50 | Gastrointestinal Consultation ---
Date of Consultation December 13, 2019 Assessment & Plan (1) Esophagitis: will need nonurgent EGD to evaluate as an outpatient once his pneumonia and respiratory symptoms have resolved. Recs: 1. start protonix 40 mg daily 2. follow up with me in the office 1 month after discharge Thank you for allowing me to participate in the care of this patient. (2) Nausea and vomiting: History of Present Illness Attending Physician: Sofiya Tavarez MD 54 yo male for whom GI was consulted for abnormal CT. CT scan showed esophageal wall thickening c/w possible esophagitis. He has ESRD and has had issues with persistent nausea and vomiting, currently on dialysis. Denies hematemesis, abdominal pains. No recent EGD. Currently admitted with acute respiratory failure and pneumonia. Labs reviewed. Allergies Allergy/AdvReac Type Severity Reaction Status Date / Time adhesive Allergy Mild SKIN Verified 12/13/19 09:45 IRRITATION morphine AdvReac Intermediate Verified 12/13/19 09:45 aspirin AdvReac Mild NOSE BLEED Verified 12/13/19 09:45 Home Medications Home Medications Medication Instructions Recorded Confirmed Type metoprolol succinate 25 mg PO QAM 12/21/18 12/13/19 History sevelamer carbonate [Renvela] 2,400 mg PO TIDM 08/18/19 12/13/19 History Parsabiv 12.5 mg IV 3XWK 10/13/19 12/13/19 History Patient History Medical History Anemia due to chronic kidney disease Chronic back pain Diabetes mellitus diet controlled Diverticulosis Esophageal reflux controlled ESRD (end stage renal disease) on dialysis (Acute) Diaylsis clinic [facility]/-W- History of blood transfusion 4 years ago (in setting of plasmaphoresis for kidney issues) History of diverticulitis (Acute) 10+ years ago Hx of malignant skin melanoma Hypercholesterolemia Hyperparathyroidism Hypertension Kidney transplant failure Obesity Osteoarthritis Surgical History H/O radical excision of skin lesion back r/t melanoma History of bowel resection (Acute) r/t diverticulitis History of cataract surgery bilateral History of colonoscopy History of colostomy History of colostomy reversal ~2006 History of esophagogastroduodenoscopy (EGD) 08/20/19: MAC sedation at [facility] History of kidney transplant (Acute) ~2008 S/P arteriovenous (AV) fistula creation left arm Family History Mother Family history of diabetes mellitus Father FHx: myocardial infarction, Onset Age: 69 Other No family history of adverse response to anesthesia Denies family history of Crohn's disease Colorectal cancer Ulcerative colitis Social History Preferred Language: Polish Communication Ability: Effective 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: No Beliefs That Will Affect Care: None Current Living Situation: Spouse Feels Safe at Home: Yes Smoking Status: Never smoker Second Hand Exposure: Yes (hx as a child) ; Hx Alcohol Use: No Hx Substance Use: No Review of Systems Constitutional: no fever, no chills and no weight loss Eyes: as per Subjective / HPI Ear, Nose, Mouth, Throat: as per Subjective / HPI Respiratory: no dyspnea and no dyspnea on exertion Cardiovascular: no chest pain and no palpitations Gastrointestinal: as per Subjective / HPI Musculoskeletal: no joint pain and no swelling Integumentary: no rash and no lesions Neurologic: no numbness and no paresthesia Psychiatric: no depression and no anxiety Endocrine: no fatigue Hematologic / Lymphatic: no easy bleeding and no easy bruising Physical Exam Constitutional: WD/WN, vitals as above Eyes: EOM intact bilaterally Neck: normal visual inspection Respiratory: normal respiratory effort, lungs clear to auscultation Cardiovascular: RRR, no murmur, no edema Gastrointestinal (Abdomen): Inspection/Auscultation: abdomen normal to inspection; abdomen not distended Percussion/Palpation: abdomen soft; abdomen nontender and no hepatosplenomegaly Musculoskeletal: Extremities: no cyanosis Gait: normal gait Skin: no rashes, warm and dry Neurologic: moves all extremities Psychiatric: A+Ox3, euthymic affect Results & Data ([facility]) Vital Signs (Past 12 Hours) Vital Signs Temp Pulse Pulse Pulse Resp BP BP 12/13/19 16:40 68 132/86 12/13/19 16:20 65 148/91 H 12/13/19 16:00 63 140/91 12/13/19 15:40 63 146/98 H 12/13/19 15:20 63 146/98 H 12/13/19 15:00 61 176/103 H 12/13/19 14:40 65 176/98 H 12/13/19 14:24 36.5 C 64 12/13/19 13:03 36.3 C L 60 22 178/100 H 12/13/19 11:31 63 19 12/13/19 11:30 60 19 174/108 H 12/13/19 11:01 62 20 12/13/19 11:00 58 L 16 191/103 H 12/13/19 10:31 62 19 12/13/19 10:30 60 18 197/103 H 12/13/19 10:18 59 L 18 201/103 H 12/13/19 10:01 61 20 12/13/19 10:00 62 20 191/105 H 12/13/19 09:38 12/13/19 09:31 61 19 203/95 H 12/13/19 09:30 58 L 18 12/13/19 09:10 36.5 C 64 22 183/98 H 12/13/19 09:07 61 17 12/13/19 09:05 62 17 183/98 H Pulse Ox 12/13/19 16:40 12/13/19 16:20 12/13/19 16:00 12/13/19 15:40 12/13/19 15:20 12/13/19 15:00 12/13/19 14:40 12/13/19 14:24 12/13/19 13:03 97 12/13/19 11:31 95 12/13/19 11:30 93 12/13/19 11:01 93 12/13/19 11:00 97 12/13/19 10:31 90 12/13/19 10:30 92 12/13/19 10:18 99 12/13/19 10:01 99 12/13/19 10:00 96 12/13/19 09:38 98 12/13/19 09:31 94 12/13/19 09:30 93 12/13/19 09:10 97 12/13/19 09:07 12/13/19 09:05 PG Care Time/CCT Total # of Minutes Spent Total Time Spent with Patient: Total time spent is greater than 50% in coordination of care (as documented) at patient's floor/unit and/or counseling patient: Coding Level of Care Code 10957 Inpt Consult Level 3 Diagnoses Esophagitis K20.9 Nausea and vomiting R11.2
--- NOTE | 2019-12-13 17:56 | Emergency Department Note ---
Entered by Yogi Kerr acting as a scribe for Josué Mason MD History of Present Illness General Chief complaint: Chest Pain Stated complaint: abd pain/nausea Time Seen by Provider: 12/13/19 09:34 Source: patient Limitations: no limitations History of Present Illness Onset (ago): week(s) 1 Location: chest Maximum Pain Intensity: 3 Quality: + constant Relieved By: + none Exacerbated By: + movement Associated symptoms: + nausea/vomiting Treatments prior to arrival: none The patient is a 54 year-old white male w/ PMHx ESRD on dialysis, Diabetes, hx of malignant skin melanoma, hypercholesterolemia, HTN, kidney transplant failure, hx of EGD, hx of colostomy, diverticulosis, hyperparathyroidism, who presents to the ED w/ CC of SOB beginning about a week ago. The patient states nothing makes her SOB better. He states her SOB is worse with movement. He notes he has been having nausea, vomiting, and pain everywhere. He states he did not take anything for pain. He states he has been having an unproductive cough. He notes he does not smoke. He denies any recent diet changes. Home Medications Home Medications Medication Instructions Recorded Confirmed Type metoprolol succinate 25 mg PO QAM 12/21/18 12/13/19 History sevelamer carbonate [Renvela] 2,400 mg PO TIDM 08/18/19 12/13/19 History Parsabiv 12.5 mg IV 3XWK 10/13/19 12/13/19 History Allergies Allergy/AdvReac Type Severity Reaction Status Date / Time adhesive Allergy Mild SKIN Verified 12/13/19 09:45 IRRITATION morphine AdvReac Intermediate Verified 12/13/19 09:45 aspirin AdvReac Mild NOSE BLEED Verified 12/13/19 09:45 Past Med/Surg History Medical History Anemia due to chronic kidney disease Chronic back pain Diabetes mellitus diet controlled Diverticulosis Esophageal reflux controlled ESRD (end stage renal disease) on dialysis (Acute) Diaylsis clinic [facility] History of blood transfusion 4 years ago (in setting of plasmaphoresis for kidney issues) History of diverticulitis (Acute) 10+ years ago Hx of malignant skin melanoma Hypercholesterolemia Hyperparathyroidism Hypertension Kidney transplant failure Obesity Osteoarthritis Surgical History H/O radical excision of skin lesion back r/t melanoma History of bowel resection (Acute) r/t diverticulitis History of cataract surgery bilateral History of colonoscopy History of colostomy History of colostomy reversal ~2006 History of esophagogastroduodenoscopy (EGD) 08/20/19: MAC sedation at [facility] History of kidney transplant (Acute) ~2008 S/P arteriovenous (AV) fistula creation left arm Family History Mother Family history of diabetes mellitus Father FHx: myocardial infarction, Onset Age: 69 Other No family history of adverse response to anesthesia Denies family history of Crohn's disease Colorectal cancer Ulcerative colitis Social History Preferred Language: Syriac Communication Ability: Effective Monument Carver Required: No Beliefs That Will Affect Care: None Current Living Situation: Spouse Feels Safe at Home: Yes Smoking Status: Never smoker Second Hand Exposure: Yes (hx as a child) ; Hx Alcohol Use: No Hx Substance Use: No Review of Systems See HPI for pertinent positives & negatives. and A total of 10 systems reviewed and were otherwise negative Physical Exam Vital Signs Vital Signs - 24 hr 12/13/19 09:05 12/13/19 09:07 12/13/19 09:10 Temperature 36.5 C Temperature Source Oral Pulse Rate 62 61 64 Pulse Rate from SpO2 Sensor Respiratory Rate 17 17 22 Respiratory Depth Normal Blood Pressure 183/98 H 183/98 H Blood Pressure Mean 116 126 Pulse Oximetry 97 Oxygen Delivery Method Room Air Sepsis Recent Fever Within 48 Hours No Sepsis New/Unexplained Change in Mental Status No Sepsis Action Taken by Nursing No Action Required 12/13/19 09:30 12/13/19 09:31 12/13/19 09:38 Temperature Temperature Source Pulse Rate 58 L 61 Pulse Rate from SpO2 Sensor 60 61 Respiratory Rate 18 19 Respiratory Depth Blood Pressure 203/95 H Blood Pressure Mean 110 Pulse Oximetry 93 94 98 Oxygen Delivery Method Sepsis Recent Fever Within 48 Hours Sepsis New/Unexplained Change in Mental Status Sepsis Action Taken by Nursing 12/13/19 10:00 12/13/19 10:01 12/13/19 10:18 Temperature Temperature Source Pulse Rate 62 61 59 L Pulse Rate from SpO2 Sensor 64 61 59 L Respiratory Rate 20 20 18 Respiratory Depth Blood Pressure 191/105 H 201/103 H Blood Pressure Mean 114 123 Pulse Oximetry 96 99 99 Oxygen Delivery Method Sepsis Recent Fever Within 48 Hours Sepsis New/Unexplained Change in Mental Status Sepsis Action Taken by Nursing 12/13/19 10:30 12/13/19 10:31 Temperature Temperature Source Pulse Rate 60 62 Pulse Rate from SpO2 Sensor 62 61 Respiratory Rate 18 19 Respiratory Depth Blood Pressure 197/103 H Blood Pressure Mean 123 Pulse Oximetry 92 90 Oxygen Delivery Method Sepsis Recent Fever Within 48 Hours Sepsis New/Unexplained Change in Mental Status Sepsis Action Taken by Nursing GENERAL: Well nourished, NAD, non-toxic. Appears slightly older than stated age. EYE EXAM: Normal conjunctiva. PERRL, no anisocoria and EOM's grossly intact w/o pain. OROPHARYNX: Moist mucus membranes. Grossly normal dentition. NECK: Supple, no nuchal rigidity, no adenopathy, non-tender. no signs of meningismus. LUNGS: Clear to auscultation. Normal chest wall mechanics. HEART: NSR, no MRG. ABDOMEN: Abdomen soft, normo-active bowel sounds, no masses, no rebound or guarding. Mildly diffuse abdominal pain. BACK: No CVA TTP. SKIN: No rashes and no bruising. UPPER EXTREMITIES: Upper extremities are grossly normal. LOWER EXTREMITIES: No pitting edema. No calf pain. LUE AFV with palpable thrill. NEURO EXAM: A&O x3, cranial nerves II-XII grossly intact, normal speech, moves all 4 extremities on command w/o issue. Course Course 929: The patient was evaluated in room B2, and a complete history and physical examination were performed. 1045: I discussed the patient's case with Dr. Tavarez - [facility] Hospitalist. She will evaluate the patient for further management. 1048: I spoke with Dr. Hayward - Nephrology. He states he will talk to the dialys is nurse to initiate dialysis. 1159: I updated the patient. He was put on 2L nasal cannula. He took 2 deep breaths and his O2 Sat is 98 percent now. Administered Medications Fluticasone/Vilanterol (Breo Ellipta 200/25 Mcg Inh) 1 puffs INH DAILY RUSSELL Stop: 01/12/20 13:29 Last Admin: 12/13/19 15:12 Dose: 1 puffs Documented by: [id number] Sevelamer HCl (Renagel) 2,400 mg PO TIDM [facility] Stop: 01/12/20 12:48 Last Admin: 12/13/19 13:00 Dose: Not Given Documented by: [id number] Discontinued Medications Fentanyl Citrate (Fentanyl Citrate) 50 mcg IV NOW STA Stop: 12/13/19 10:22 Last Admin: 12/13/19 10:36 Dose: 50 mcg Documented by: [id number] Heparin Sodium (Porcine) (Heparin Iv Bolus) 2,000 units IV TODAY@1104 [facility] Stop: 12/13/19 17:15 Last Admin: 12/13/19 14:30 Dose: Not Given Documented by: [id number] Heparin Sodium (Porcine) (Heparin Iv Bolus) 1,500 units IV Q1H [facility] Stop: 12/13/19 13:16 Last Admin: 12/13/19 17:48 Dose: Not Given Documented by: [id number] Admin: 12/13/19 16:30 Dose: Not Given Documented by: [id number] Admin: 12/13/19 15:30 Dose: Not Given Documented by: [id number] Metoprolol Succinate (Toprol Xl) 25 mg PO QAM [facility] Stop: 01/12/20 09:59 Last Admin: 12/13/19 11:08 Dose: 25 mg Documented by: [id number] Morphine Sulfate (Morphine Sulfate) 4 mg IV NOW [facility] Stop: 12/13/19 10:03 Last Admin: 12/13/19 11:11 Dose: Not Given Documented by: [id number] Ondansetron HCl (Zofran) 4 mg IV NOW STA Stop: 12/13/19 09:56 Last Admin: 12/13/19 10:17 Dose: 4 mg Documented by: [id number] Medical Decision Making Differential Diagnosis Differential diagnoses includes but is not limited to pneumonia, bronchitis, COPD/Asthma exacerbation, pneumothorax, pulmonary embolism, congestive heart failure, acute coronary syndrome Medical Records Attestation: I reviewed the patient's medical records. The patient had dialysis today. He was recently admitted and discharged from [facility] [place]. He had a TTE. Normal LVH function. Normal LV function with LVH. EF at 61%. Home Medications Current Medication List: was personally reviewed by me Laboratory Data Attestation: I reviewed the patient's lab results. Result diagrams: 12/13/19 09:12 12/13/19 09:12 Lab Results 12/13/19 12/13/19 12/13/19 Range/Units 09:12 09:12 09:12 WBC 6.74 (4.8-10.8) K/uL RBC 3.54 L (4.7-6.1) M/uL Hgb 10.0 L (14.0-18.0) g/dL Hct 31.1 L (42-52) % MCV 87.9 (80-100) fL MCH 28.2 (25-34) pg MCHC 32.2 (32-36) g/dL RDW Std Deviation 50.4 H (36.4-46.3) fL RDW Coeff of Lisseth 15.6 H (11.5-14.5) % Plt Count 207 (130-400) K/uL MPV 8.5 (7.4-10.4) fL Immature Gran % (Auto) 0.4 % Neut % (Auto) 86.9 % Lymph % (Auto) 7.7 % [place] % (Auto) 3.6 % Eos % (Auto) 1.3 % Baso % (Auto) 0.1 % Immature Gran # (Auto) 0.03 H (0.00-0.02) K/uL Neut # (Auto) 5.85 (1.4-6.5) K/uL Lymph # (Auto) 0.52 L (1.2-3.4) K/uL [place] # (Auto) 0.24 (0.11-0.59) K/uL Eos # (Auto) 0.09 (0-0.5) K/uL Baso # (Auto) 0.01 (0-0.2) K/uL PT 11.3 (9.0-12.0) Seconds INR 1.1 (0.9-1.1) APTT 28.7 (21.0-31.0) Seconds PTT Ratio 1.0 Sodium 136 (136-145) mmol/L Potassium 4.8 (3.5-5.1) mmol/L Chloride 98 (98-107) mmol/L Carbon Dioxide 29 (21-32) mmol/L Anion Gap 9.0 (3-11) BUN 54 H (7-18) mg/dl Creatinine 12.70 H* (0.6-1.4) mg/dl Est Cr Clr Drug Dosing 7.7 ml/min Est GFR ( Amer) 4.5 Est GFR (Non-Af Amer) 3.9 BUN/Creatinine Ratio 4.2 L (10-20) Glucose 115 H (70-99) mg/dl Calcium 8.5 (8.5-10.1) mg/dl Total Bilirubin 0.5 (0.2-1) mg/dl AST 9 L (15-37) U/L ALT 10 L (12-78) U/L Alkaline Phosphatase 88 (45-117) U/L Troponin I < 0.015 (0-0.045) ng/ml NT-Pro-B Natriuret Pep 57275 H (0-900) pg/ml Total Protein 7.4 (6.4-8.2) gm/dl Albumin 3.3 L (3.4-5.0) gm/dl Globulin 4.1 H (2.5-4.0) gm/dl Albumin/Globulin Ratio 0.8 L (0.9-2) Lipase 514 H (73-393) U/L Imaging Data Radiologist's Impression: Radiology results as stated below per my review and the radiologist's interpretation: XR chest 1V portable CLINICAL HISTORY: Atypical chest pain COMPARISON STUDY: 10/14/2019 FINDINGS: The heart is enlarged. There is diffuse elevation of interstitium, slightly asymmetric on the right. This is likely secondary to congestive failure/fluid overload. An interstitial infectious/inflammatory processes could appear similar but is statistically less likely. Clinical and radiographic f ollow-up is recommended. There is no lobar consolidation. There are no pleural effusions.[The bony skeleton appears slightly sclerotic, finding which may be secondary to renal osteodystrophy. IMPRESSION: 1. Cardiomegaly and diffuse elevation of the interstitium, consistent with congestive failure/fluid overload. Clinical and radiographic follow-up is recommended. ACT 112: Negative or not required by law. Electronically signed by: Shahab Ba M.D. 12/13/2019 10:[address] abd pelvis wo con CLINICAL HISTORY: 54 years-old Male presenting with generalized abdominal pain, one month history of nausea, vomiting, diarrhea, sent from dialysis, atypical chest pain and shortness of breath. TECHNIQUE: Multidetector CT of the abdomen and pelvis was performed without the use of intravenous contrast. IV contrast: None. One or more dose lowering techniques were used consistent with the principles of ALARA (as low as reasonably achievable), including automatic exposure control, mA or kV adjustment to individual patient size, and/or use of iterative reconstruction. COMPARISON: 08/19/2019. CT DOSE (mGy.cm): The estimated cumulative dose is 752.99 mGy.cm. FINDINGS: Technology Advisor topogram: Unremarkable. Lung bases: Mild multichamber enlargement of the heart. Coronary artery, aortic valve, and mitral annular calcification. Trace pericardial effusion. Small right and trace left pleural effusions. Pulmonary vascular prominence. Patchy nodular groundglass opacities throughout the lung bases. Smooth interlobular septal thickening. Liver: Normal morphology. Normal density. Biliary: No gross biliary ductal dilatation allowing for noncontrast technique. Normal gallbladder. Pancreas: Mild parenchymal atrophy. Spleen: Normal noncontrast appearance. Splenule noted. Adrenal glands: Thickening of the adrenal glands with fat deposition, unchanged. This could suggest chronic inflammation of the adrenal glands. Kidneys and ureters: Severe atrophy with multiple underlying cysts. Prominent renovascular calcification. Few nonobstructing calculi may also be present. No hydronephrosis. Ureters nondistended. Evidence of a right lower quadrant transplant kidney. No hydronephrosis. Urothelial thickening of the transplant ureter suspected. Bladder: Circumferential bladder wall thickening. Pelvic organs: Normal noncontrast appearance. Calcification of the vasa d eferentia likely indicates underlying diabetes. Bowel: Colocolonic anastomosis at the upper rectum likely indicating partial sigmoidectomy. Diverticulosis of the residual proximal sigmoid and descending colon as well as to a lesser extent in the remainder of the colon. No wall thickening or pericolonic inflammatory change. The appendix is normal. No bowel obstruction. Persistence circumferential wall thickening of the esophagus, which is moderate to severe. Peritoneal cavity: No free fluid or intraperitoneal gas. Lymph nodes: No gross lymphadenopathy allowing for noncontrast technique. Vasculature: Atherosclerosis of the normal caliber abdominal aorta. Abdominal wall: Postsurgical changes of the midline ventral abdominal wall and right lower quadrant. Musculoskeletal: Degenerative changes of the spine. Diffuse sclerosis of the medullary bone consistent with underlying renal osteodystrophy. Sclerosis in the right ilium may be slightly more extensive. Erosive changes of the endplates in the lumbar spine likely relate to hemodialysis associated amyloid arthropathy. Similar findings at the pubic symphysis. IMPRESSION: 1. Extensive patchy nodular groundglass infiltrates at the lung bases. Other findings of vascular engorgement and interlobular septal thickening favor moderate pulmonary edema and congestive change. Please ensure the absence of infectious symptoms. Consider dedicated chest CT. 2. Allowing for noncontrast technique, no acute intra-abdominal pathology. 3. Severe [place] renal atrophy and right lower quadrant renal transplant. No hydronephrosis. 4. Postsurgical changes of partial sigmoidectomy. 5. Pancolonic diverticulosis without evidence of diverticulitis. 6. Moderate to severe circumferential wall thickening of the esophagus. While this may represent esophagitis, gastroenterology consultation for possible nonurgent esophagogastroduodenoscopy recommended. 7. 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 8. Chronic sclerotic lesion in the right ilium, slightly increased from prior, possibly osteonecrosis among other etiologies. ACT 112: Negative or not required by law. Electronically signed by: Noé Gunn M.D. 12/13/2019 10:32 AM ECG Data Attestation: I personally reviewed and interpreted this ECG as follows: Indication: + SOB/dyspnea Rate (beats per minute): 61 Rhythm: + normal sinus ECG Intervals/blocks: + Normal QRS, + Normal QT, + Normal VT and + Normal QT-c ECG [place]: + Normal ECG ST segments: + T-wave inversions (in aVL) ECG Findings: + Peaked T waves Blood Pressure Blood Pressure Findings: Elevated blood pressure Blood Pressure Disposition: further management by hospitalist OSITO Narrative The patient is a 54 year-old white male w/ PMHx ESRD on dialysis, Diabetes, hx of malignant skin melanoma, hypercholesterolemia, HTN, kidney transplant failure, hx of EGD, hx of colostomy, diverticulosis, hyperparathyroidism, who presents to the ED w/ CC of SOB beginning about a week ago. Continuous Cardiac Monitoring: An order was placed for continuous cardiac monitoring. The monitor shows a rate of 60 with a normal sinus rhythm Patient was seen and evaluated the bedside. The patient was presenting with persistent shortness of breath. The patient was recently seen in at [facility] where he did have a TTE completed which that shows that the patient does have some LVH but normal LV function and an EF of 61%. Patient does receive ESRD Friday but did not make his morning appointment. The patient did have blood work completed along with a CT of the abdomen pelvis and chest x-ray. Chest x-ray does show volume overload. CT does show groundglass opacities with the patient has had a dry cough no white count will defer any antibiotics at this time. The patient likely does have volume overload and given that the patient has missed his daily dialysis I be lieve he would benefit from dialysis. I did speak with the on-call hospitalist as well as the on-call control officer. Patient will be admitted pending dialysis today. Of note the patient's lipase was somewhat elevated but there are no inflammatory findings seen on CT. Patient does have some mild parenchymal atrophy. Impression & Plan Dyspnea, Volume overload, ESRD (end stage renal disease) on dialysis, Nausea & vomiting, Abdominal pain Discharge Plan Visit Data *Final* Discharge Date/Time: 12/13/19 11:47 Chief Complaint: Chest Pain Stated Complaint: abd pain/nausea ED Provider: Josué Mason Discharge Problem: Dyspnea, Volume overload, ESRD (end stage renal disease) on dialysis, Nausea & vomiting, Abdominal pain Patient Disposition: Admitted As Inpatient Discharge Instructions Interventions: ED Discharge Assessment Last Done: 12/13/19 11:47 Discharge Problem: Dyspnea Qualifiers: Dyspnea type: unspecified Qualified Code(s): R06.00 - Dyspnea, unspecified Volume overload Qualifiers: Hypervolemia type: unspecified Qualified Code(s): E87.70 - Fluid overload, unspecified Nausea & vomiting Qualifiers: Vomiting type: unspecified Vomiting Intractability: non-intractable Qualified Code(s): R11.2 - Nausea with vomiting, unspecified Abdominal pain Qualifiers: Abdominal location: generalized Qualified Code(s): R10.84 - Generalized abdominal pain The scribe's documentation has been prepared under my direction and personally reviewed by me in its entirety. I confirm that the note above accurately reflects all work, treatment, procedures, and medical decision making performed by me.
[2019-12-13] MEDS: cefTRIAXone SODIUM 2,000 MG in DEXTROSE 5% 50 ML IV SCH (19:24)
[2019-12-13] MEDS ORDERED: OXYCODONE/ACETAMINOPHEN 5mg/325mg TAB PO PRN (19:34)
[2019-12-13] MEDS: DOXYCYCLINE HYCLATE 100 MG in DEXTROSE 5% 100 ML IV SCH (19:58)
--- NOTE | 2019-12-13 21:37 | CT Scan Report ---
CT chest wo con CT DOSE: 442.47 mGy.cm CLINICAL HISTORY: 54 years-old Male with dry cough,. Acute cough TECHNIQUE: Multiaxial CT images of the chest were performed without contrast. A dose lowering techni que was utilized adhering to the principles of ALARA. COMPARISON: CT abdomen and pelvis of same day FINDINGS: Heart is mildly enlarged. Trace pericardial effusion. Extensive coronary artery calcifications are no anya. Aortic and mitral annular calcifications are also present along with moderate calcified plaque o f the thoracic cortical arch. No thoracic aortic aneurysm. The unopacified pulmonary artery is mildly dilated measuring up to 3.4 cm. Mildly prominent mediastinal and hilar lymph nodes are likely on a p hysiologic basis. Calcified right hilar lymph nodes compatible with prior granulomatous disease. Trace pleural effusions, right greater than left. No pneumothorax. Mild intralobular septal thickenin g is noted with patchy bilateral groundglass predominate opacities which are noted within a multiloba r and multi segmental distribution. The central airways appear patent. There is mild transverse narro wing of the mid trachea. Circumferential wall thickening of the mid and distal esophagus with a few mildly prominent periesoph ageal lymph nodes. Soft tissues are unremarkable. Diffusely sclerotic appearance of the osseous struc tures. Endplate erosions are also noted at multiple levels. Multilevel disc space narrowing with spon dylitic spurring. IMPRESSION: 1. Cardiomegaly with trace pericardial and right greater than left pleural effusions. 2. Mild intralobular septal thickening with multilobar multi segmental distribution of bilateral grou ndglass densities suggestive of interstitial and alveolar pulmonary edema. A superimposed pneumonitis would be difficult to exclude. 3. Extensive coronary artery calcifications. 4. Renal osteodystrophy. 5. Nonspecific wall thickening of the mid and distal esophagus. Correlate clinically to exclude esoph agitis. ACT 112: Negative or not required by law. Electronically signed by: Vincent Angel M.D. 12/13/2019 9:36 PM
[2019-12-14] MEDS: DOXYCYCLINE HYCLATE 100 MG in DEXTROSE 5% 100 ML IV SCH ×2 (05:15→15:57)
[2019-12-14 07:45] LABS: Basophils # (auto) 0.02 K/uL (0-0.2); Basophils % (auto) 0.5 %; Eosinophils # (auto) 0.14 K/uL (0-0.5); Eosinophils % (auto) 3.6 %; Hematocrit (blood only) 35.7 % (42-52); Hemoglobin 11.2 g/dL (14.0-18.0); Immature Granulocytes # (auto) 0.03 K/uL (0.00-0.02); Immature Granulocytes % (auto) 0.8 %; Lymphocytes # (auto) 0.51 K/uL (1.2-3.4); Mean Corpuscular Hemoglobin 27.7 pg (25-34); Mean Corpuscular Hgb Conc 31.4 g/dL (32-36); Mean Corpuscular Volume 88.4 fL (80-100); Mean Platelet Volume 8.4 fL (7.4-10.4); Monocytes # (auto) 0.31 K/uL (0.11-0.59); Monocytes % (auto) 7.9 %; Neutrophils # (auto) 2.91 K/uL (1.4-6.5); Neutrophils % (auto) 74.2 %; Platelet Count 207 K/uL (130-400); RDW Standard Deviation 51.1 fL (36.4-46.3); Red Blood Count 4.04 M/uL (4.7-6.1); White Blood Count 3.92 K/uL (4.8-10.8)
[2019-12-14 07:48] LABS: Estimated Average Glucose 108 mg/dl; Hemoglobin A1C 5.4 % (4.5-5.6)
[2019-12-14 08:35] LABS: Albumin Globulin Ratio 0.7 (0.9-2); Albumin Level 3.4 gm/dl (3.4-5.0); BUN Creatinine Ratio 3.2 (10-20); Bilirubin,Total 0.6 mg/dl (0.2-1); Calcium 8.7 mg/dl (8.5-10.1); Creatinine Clr Calc Pharmacy 10.4 ml/min; Est GFR (African American) 6.8; Est GFR (Non-African American) 5.8; Globulin 4.6 gm/dl (2.5-4.0); Potassium 4.5 mmol/L (3.5-5.1)
[2019-12-14] MEDS: FLUTICASONE/VILANTEROL 200/25MCG 14 PUFFS/INHALER INH SCH (08:56)
[2019-12-14] MEDS: PANTOprazole 40 MG TAB PO SCH (08:56)
[2019-12-14] MEDS: SEVELAMER HCL 800 MG TABLET PO SCH ×3 (08:57→16:54)
[2019-12-14] MEDS ORDERED: METOPROLOL SUCC 25MG EXT REL TAB PO SCH ×2 (09:00→21:00)
--- NOTE | 2019-12-14 09:46 | Nephrology Progress Note ---
Date of Service December 14, 2019 Assessment & Plan (1) ESRD (end stage renal disease) on dialysis: Mr. Levy did well with his dialysis treatment yesterday. Just over 4 L of fluid were removed. His blood pressure initially dropped although it is higher this morning. He remains somewhat short of breath today. I think he can ambulate today. I would continue his metoprolol and observe his blood pressure today. We can dialyze him again tomorrow and try to remove further fluid to once again improve his blood pressure.I would avoid the use of any PRN antihypertensives. Chest x-ray done today would be helpful to see if it has cleared significantly with his volume reduction. (2) Dyspnea: Subjective Mr. Levy sys that he remains somewhat short of breath. However, he denies PND or orthopnea. He denies having any chest pain. He was surprised at the amount of fluid that was removed with his dialysis treatment yesterday. With that treatment, his blood pressure improved dramatically although it is back up this morning. He has had no nausea or vomiting. He has no dysphagia.He has had no melena. He was seen by GI. They recommend an outpatient EGD which we can always schedule. He has no other specific complaints. His dialysis treatment yesterday was uncomplicated. Physical Exam Physical Exam: On physical exam this morning, Mr. Levy appears relatively comfortable and well. His blood pressure, however, was 185/98. His pulse is 59 and regular. Respiratory rate is 20 with a pulse ox of 94% on room air. He is afebrile (36.3).His skin shows normal skin turgor. He has scars from his prior surgical procedures including abdominal scars from diverticular surgery, the large scar on his mid back from the removal of a cutaneous malignancy and the scar on his left upper arm from the creation of an AV fistula. His skin turgor is normal.There is no rash or infiltrative skin disease. He has no palpable lymphadenopathy. His head is normal. Eyes are grossly normal other than some mild conjunctival injection.Ears, nose, mouth and throat are unremarkable. His oral mucous membranes are moist. His neck is supple. He has no obvious jugular venous distention but the exam is limited by his body habitus. He has a murmur transmitted from a murmur at the base of his heart as well as a murmur transmitted into the left side of his chest and neck from his left upper arm AV fistula. His chest is clear to auscultation. I hear no wheezes, rales or rhonchi. Cardiac exam shows a regular rhythm. S1 and S2 are normal. He has a Grade 3/6 systolic ejection murmur at the base radiating toward the neck but also heard along the left sternal border and at the apex. He has no gallop sounds. I hear no pericardial friction rub. His abdomen is somewhat obese but nontender. He has no organomegaly or mass. Bowel sounds are normal. I hear no abdominal bruits. Extremities show the left upper arm AV fistula. He has some mild swelling of his left arm as well. There is an excellent pulse, thrill and bruit over the fistula. His neurologic exam is normal. He has no asterixis. Results & Data Vital Signs (Past 12 Hours) Vital Signs Temp Pulse Pulse Resp BP Pulse Ox 12/14/19 07:06 36.3 C L 59 L 20 185/98 H 94 12/14/19 03:54 36.4 C L 57 L 18 157/98 H 93 12/13/19 23:41 36.4 C L 65 20 147/88 H 91 Laboratory Results Laboratory Results - last 24 hr 12/13/19 12/13/19 12/13/19 09:12 09:12 09:12 WBC 6.74 RBC 3.54 L Hgb 10.0 L Hct 31.1 L MCV 87.9 MCH 28.2 MCHC 32.2 RDW Std Deviation 50.4 H RDW Coeff of Lisseth 15.6 H Plt Count 207 MPV 8.5 Immature Gran % (Auto) 0.4 Neut % (Auto) 86.9 Lymph % (Auto) 7.7 Clarke % (Auto) 3.6 Eos % (Auto) 1.3 Baso % (Auto) 0.1 Immature Gran # (Auto) 0.03 H Neut # (Auto) 5.85 Lymph # (Auto) 0.52 L Clarke # (Auto) 0.24 Eos # (Auto) 0.09 Baso # (Auto) 0.01 PT 11.3 INR 1.1 APTT 28.7 PTT Ratio 1.0 Sodium 136 Potassium 4.8 Chloride 98 Carbon Dioxide 29 Anion Gap 9.0 BUN 54 H Creatinine 12.70 H* Est Cr Clr Drug Dosing 7.7 Est GFR ( Amer) 4.5 Est GFR (Non-Af Amer) 3.9 BUN/Creatinine Ratio 4.2 L Glucose 115 H POC Glucose Estimat Average Glucose Hemoglobin A1c Calcium 8.5 Total Bilirubin 0.5 AST 9 L ALT 10 L Alkaline Phosphatase 88 Troponin I < 0.015 NT-Pro-B Natriuret Pep 73616 H Total Protein 7.4 Albumin 3.3 L Globulin 4.1 H Albumin/Globulin Ratio 0.8 L Triglycerides Cholesterol LDL Cholesterol, Calc VLDL Cholesterol, Calc HDL Cholesterol Cholesterol/HDL Ratio Lipase 514 H Procalcitonin TSH 12/13/19 12/13/19 12/14/19 13:08 13:08 07:13 WBC RBC Hgb Hct MCV MCH MCHC RDW Std Deviation RDW Coeff of Lisseth Plt Count MPV Immature Gran % (Auto) Neut % (Auto) Lymph % (Auto) Clarke % (Auto) Eos % (Auto) Baso % (Auto) Immature Gran # (Auto) Neut # (Auto) Lymph # (Auto) Clarke # (Auto) Eos # (Auto) Baso # (Auto) PT INR APTT PTT Ratio Sodium Potassium Chloride Carbon Dioxide Anion Gap BUN Creatinine Est Cr Clr Drug Dosing Est GFR ( Amer) Est GFR (Non-Af Amer) BUN/Creatinine Ratio Glucose POC Glucose 120 H Estimat Average Glucose Hemoglobin A1c Calcium Total Bilirubin AST ALT Alkaline Phosphatase Troponin I NT-Pro-B Natriuret Pep 37686 H Total Protein Albumin Globulin Albumin/Globulin Ratio Triglycerides Cholesterol LDL Cholesterol, Calc VLDL Cholesterol, Calc HDL Cholesterol Cholesterol/HDL Ratio Lipase Procalcitonin 0.78 H TSH 3.160 12/14/19 12/14/19 12/14/19 07:27 07:27 07:27 WBC 3.92 L RBC 4.04 L Hgb 11.2 L Hct 35.7 L MCV 88.4 MCH 27.7 MCHC 31.4 L RDW Std Deviation 51.1 H RDW Coeff of Lisseth 16.0 H Plt Count 207 MPV 8.4 Immature Gran % (Auto) 0.8 Neut % (Auto) 74.2 Lymph % (Auto) 13.0 Clarke % (Auto) 7.9 Eos % (Auto) 3.6 Baso % (Auto) 0.5 Immature Gran # (Auto) 0.03 H Neut # (Auto) 2.91 Lymph # (Auto) 0.51 L Clarke # (Auto) 0.31 Eos # (Auto) 0.14 Baso # (Auto) 0.02 PT INR APTT PTT Ratio Sodium 136 Potassium 4.5 Chloride 97 L Carbon Dioxide 31 Anion Gap 8.0 BUN 29 H Creatinine 9.04 H* D Est Cr Clr Drug Dosing 10.4 Est GFR ( Amer) 6.8 Est GFR (Non-Af Amer) 5.8 BUN/Creatinine Ratio 3.2 L Glucose 101 H POC Glucose Estimat Average Glucose 108 Hemoglobin A1c 5.4 Calcium 8.7 Total Bilirubin 0.6 AST 10 L ALT 9 L Alkaline Phosphatase 89 Troponin I NT-Pro-B Natriuret Pep Total Protein 8.0 Albumin 3.4 Globulin 4.6 H Albumin/Globulin Ratio 0.7 L Triglycerides 186 H Cholesterol 186 LDL Cholesterol, Calc 123 VLDL Cholesterol, Calc 37 HDL Cholesterol 26 Cholesterol/HDL Ratio 7 Lipase Procalcitonin TSH PG Care Time/CCT Total # of Minutes Spent Total Time Spent: 35 Total Time Spent with Patient: Total time spent is greater than 50% in coordination of care (as documented) at patient's floor/unit and/or counseling patient: Coding Level of Care Code 14401 Subseq Hosp Care Lvl 3 Diagnoses ESRD (end stage renal disease) on dialysis N18.6; Z99.2 Dyspnea R06.00 Dyspnea type: unspecified (1) Dyspnea Dyspnea type: unspecified Qualified Code(s): R06.00 - Dyspnea, unspecified
--- NOTE | 2019-12-14 11:13 | XRay Report ---
XR chest 2V PA/lateral CLINICAL HISTORY: shortness of breath, volume status dyspnea COMPARISON STUDY: 12/13/2019 FINDINGS: Slight decrease in cardiac size compared to the prior exam. Slight decrease in the prominen t pulmonary vasculature. No focal infiltrative changes. Diaphragms are smooth. IMPRESSION: Mild improvement of the findings of congestive failure. ACT 112: Negative or not required by law. The above report was generated using voice recognition software. It may contain grammatical, syntax or spelling errors. Electronically signed by: Lokesh Granda M.D. 12/14/2019 11:11 AM
--- NOTE | 2019-12-14 12:57 | Orthopedic Consultation ---
Date of Consultation December 14, 2019 Assessment & Plan (1) Bone lesion: Sclerotic lesion of right ilium. Likely secondary to renal osteodystrophy. Patient asymptomatic. Will evaluate further with MRI with and without contrast. Obtain baseline x-ray. Weight-bear as tolerated right lower extremity. Thank you for the consultation. History of Present Illness Reason for Consultation: Sclerotic lesion right ilium Attending Physician: Jeaneth Jones MD History of Present Illness The patient is a 54 years old male with past medical history of end-stage renal disease, diabetes mellitus type 2, hypercholesterolemia, hypothyroidism, hypertension, kidney transplant failure, who presents to the emergency room with a complaint of shortness of breath. While admitted to the hospital the patient had CT abdomen pelvis which demonstrated a sclerotic lesion of the right ilium. We are asked to evaluate the patient in regards to this. Patient denies any pain or discomfort. Denies any trauma. Denies any numbness or tingling to right lower extremity. Allergies Allergy/AdvReac Type Severity Reaction Status Date / Time adhesive Allergy Mild SKIN Verified 12/13/19 09:45 IRRITATION morphine AdvReac Intermediate Verified 12/13/19 09:45 aspirin AdvReac Mild NOSE BLEED Verified 12/13/19 09:45 Home Medications Home Medications Medication Instructions Recorded Confirmed Type metoprolol succinate 25 mg PO QAM 12/21/18 12/13/19 History sevelamer carbonate [Renvela] 2,400 mg PO TIDM 08/18/19 12/13/19 History Parsabiv 12.5 mg IV 3XWK 10/13/19 12/13/19 History Patient History Medical History Anemia due to chronic kidney disease Chronic back pain Diabetes mellitus diet controlled Diverticulosis Esophageal reflux controlled ESRD (end stage renal disease) on dialysis (Acute) [facility]lsis clinic [facility] History of blood transfusion 4 years ago (in setting of plasmaphoresis for kidney issues) History of diverticulitis (Acute) 10+ years ago Hx of malignant skin melanoma Hypercholesterolemia Hyperparathyroidism Hypertension Kidney transplant failure Obesity Osteoarthritis Surgical History H/O radical excision of skin lesion back r/t melanoma History of bowel resection (Acute) r/t diverticulitis History of cataract surgery bilateral History of colonoscopy History of colostomy History of colostomy reversal ~2006 History of esophagogastroduodenoscopy (EGD) 08/20/19: MAC sedation at [facility] History of kidney transplant (Acute) ~2008 S/P arteriovenous (AV) fistula creation left arm Family History Mother Family history of diabetes mellitus Father FHx: myocardial infarction, Onset Age: 69 Other No family history of adverse response to anesthesia Denies family history of Crohn's disease Colorectal cancer Ulcerative colitis Social History Preferred Language: Luxembourgish Communication Ability: Effective Hotel 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 Constitutional: WD/WN, vitals as above Results & Data ([facility]) Vital Signs (Past 12 Hours) Vital Signs Temp Pulse Pulse Resp BP Pulse Ox 12/14/19 11:20 36.7 C 58 L 18 166/97 H 96 12/14/19 07:06 36.3 C L 59 L 20 185/98 H 94 12/14/19 03:54 36.4 C L 57 L 18 157/[address] abd pelvis wo con CLINICAL HISTORY: 54 years-old Male presenting with generalized abdominal pain, one month history of nausea, vomiting, diarrhea, sent from dialysis, atypical chest pain and shortness of breath. TECHNIQUE: Multidetector CT of the abdomen and pelvis was performed without the use of intravenous contrast. IV contrast: None. One or more dose lowering techniques were used consistent with the principles of ALARA (as low as reasonably achievable), including automatic exposure control, mA or kV adjustment to individual patient size, and/or use of iterative reconstruction. COMPARISON: 08/19/2019. CT DOSE (mGy.cm): The estimated cumulative dose is 752.99 mGy.cm. FINDINGS: Lines Tender topogram: Unremarkable. Lung bases: Mild multichamber enlargement of the heart. Coronary artery, aortic valve, and mitral annular calcification. Trace pericardial effusion. Small right and trace left pleural effusions. Pulmonary vascular prominence. Patchy nodular groundglass opacities throughout the lung bases. Smooth interlobular septal thickening. Liver: Normal morphology. Normal density. Biliary: No gross biliary ductal dilatation allowing for noncontrast technique. Normal gallbladder. Pancreas: Mild parenchymal atrophy. Spleen: Normal noncontrast appearance. Splenule noted. Adrenal glands: Thickening of the adrenal glands with fat deposition, unchanged. This could suggest chronic inflammation of the adrenal glands. Kidneys and ureters: Severe atrophy with multiple underlying cysts. Prominent renovascular calcification. Few nonobstructing calculi may also be present. No hydronephrosis. Ureters nondistended. Evidence of a right lower quadrant transplant kidney. No hydronephrosis. Urothelial thickening of the transplant ureter suspected. Bladder: Circumferential bladder wall thickening. Pelvic organs: Normal noncontrast appearance. Calcification of the vasa deferentia likely indicates underlying diabetes. Bowel: Colocolonic anastomosis at the upper rectum likely indicating partial sigmoidectomy. Diverticulosis of the residual proximal sigmoid and descending colon as well as to a lesser extent in the remainder of the colon. No wall thickening or pericolonic inflammatory change. The appendix is normal. No bowel obstruction. Persistence circumferential wall thickening of the esophagus, which is moderate to severe. Peritoneal cavity: No free fluid or intraperitoneal gas. Lymph nodes: No gross lymphadenopathy allowing for noncontrast technique. Vasculature: Atherosclerosis of the normal caliber abdominal aorta. Abdominal wall: Postsurgical changes of the midline ventral abdominal wall and right lower quadrant. Musculoskeletal: Degenerative changes of the spine. Diffuse sclerosis of the medullary bone consistent with underlying renal osteodystrophy. Sclerosis in the right ilium may be slightly more extensive. Erosive changes of the endplates in the lumbar spine likely relate to hemodialysis associated amyloid arthropathy. Similar findings at the pubic symphysis. IMPRESSION: 1. Extensive patchy nodular groundglass infiltrates at the lung bases. Other findings of vascular engorgement and interlobular septal thickening favor moderate pulmonary edema and congestive change. Please ensure the absence of infectious symptoms. Consider dedicated chest CT. 2. Allowing for noncontrast technique, no acute intra-abdominal pathology. 3. Severe [place] renal atrophy and right lower quadrant renal transplant. No hydronephrosis. 4. Postsurgical changes of partial sigmoidectomy. 5. Pancolonic diverticulosis without evidence of diverticulitis. 6. Moderate to severe circumferential wall thickening of the esophagus. While this may represent esophagitis, gastroenterology consultation for possible nonurgent esophagogastroduodenoscopy recommended. 7. 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 8. Chronic sclerotic lesion in the right ilium, slightly increased from prior, possibly osteonecrosis among other etiologies.
--- NOTE | 2019-12-14 13:32 | XRay Report ---
SINGLE VIEW PELVIS; 2 VIEWS RIGHT HIP CLINICAL HISTORY: Sclerotic lesion of the right ilium. FINDINGS: An AP view of the pelvis with AP and frog-leg views of the right hip are correlated with pe ic CT dated 12/13/2019 and 03/03/2007. The skeletal structures appear heterogeneously hyperdense, like ly related to renal osteodystrophy correlated with the recent pelvic CT. No fracture is seen in the h ips or bony pelvis. The sclerotic lesion of the right ilium seen by CT is not well-visualized by x-ra y. This is unchanged dating back to 2006 and likely represents a bone island. Mild degenerative joint space narrowing is present in both hips. Cystic changes noted in the right acetabular roof. Mild deg enerative sclerosis is seen in the sacroiliac joints and pubic symphysis. The overlying soft tissues are normal in appearance. Phleboliths are observed in the pelvis. IMPRESSION: 1. Findings are consistent with renal osteodystrophy. There is mild degenerative change as above with no acute bony abnormality identified. 2. The sclerotic lesion of the right ilium seen by CT is not well-visualized by x-ray. This is unchan ged dating back to a 2006 CT and is typical in appearance for a bone island. Electronically signed by: Laurent Hall M.D. 12/14/2019 1:30 PM
--- NOTE | 2019-12-14 13:49 | Hospitalist Progress Note ---
Date of Service December 14, 2019 Assessment & Plan (1) Acute respiratory failure: * Secondary to volume overload over the past month - BNP was 09706. Wt 104.7kg on admission -- currently 95.3kg Patient underwent HD on 12/12 which removed 4.1L. Patient currently 96% on RA. Initial elevation in procalcitonin negligible in ESRD -- antibiotics have been discontinued * CXR with improvement in congestion * Supplemental O2 to maintain sat >88% * HD tomorrow for additional diuresis, and then patient possibly able to be discharged * Guaifenesin/dextromethorphan prn cough (2) Pneumonia: * PNA RULED OUT * Based on CT abdomen and pelvis there were ground glass opacities and infiltrates located by laterally in the patient lungs -- decision to pursue dedicated CT chest * CT Chest with trace pericardial and pleural effusions, R>L. mild intralobular septal thickening with multilobar multi segmental distribution of bilateral ground glass densities suggestive of interstitial and alveolar pulmonary edema. Nonspecific wall thickening of mid/distal esophagus (will need outpatient EGD in the next week, to be arranged -- was previously supposed to be done inpatient but had elevated K at 5.7 and did not follow up outpatient) * Patient continues to be afebrile, no leukocytosis -- will discontinue abx as above * Blood cultures NGTD * Robitussin, albuterol HFA prn * Symbicort BID (3) Esophagitis: * Moderate to severe circumferential wall thickening of the esophagus. Possible esophagitis. * Started on Protonix 40mg daily -- to be continued at discharge * Consult GI -- appreciate input --> outpatient EGD in 1 month -- will need set up with appointment prior to discharge as he did not follow up following discharge last admission (4) Volume overload: * See above -- 4.1L via HD on 12/12 * HD tomorrow (12/14) * Hold metoprolol while patient is in hemodialysis (5) Osteonecrosis: * Chronic sclerotic lesion in the right ilium slightly increased from prior possibly osteonecrosis. * Orthopedics consulted -- appreciate input * Hip/pelvis xray -- sclerotic lesion R ilium not well visualized -- unchanged dating back to 2006 * MRI ordered per ortho (6) ESRD (end stage renal disease) on dialysis: * As discussed above. Patient previously renal transplant but non- compliance with immunosuppressive agents secondary to cost. Currently back on transplant list. Undergoes HD MWF in [place] * Creatinine improved from 12.7 to 9.04 following dialysis Friday * Consulted nephrology -- appreciate continued assistance * Continue to monitor (7) Hypertension: * Patient had been receiving metoprolol XL 25mg once daily * Per patient, he takes metoprolol tartrate 25mg BID -- changed to correct dosing-will need to change on home med rec too * BP elevated at 162/95 due to volume overload, causing symptoms and pulm edema * Hold metoprolol while in dialysis (8) Anemia due to chronic kidney disease: * Stable. In setting of ESRD * Improved H/h 11.2/35.7 * Continue to monitor (9) Pre-diabetes: * Hx, per chart. * A1c 5.4 -- not technically even considered pre-DM (10) Hyperparathyroidism: * PTH pending. TSH wnl at 3.160 * Continue home Parsabiv 12.5mg three times weekly * Continue monitoring (11) High triglycerides: * Lipid panel with elevated triglycerides at 186 -- could consider initiating gemfibrozil, however would be cautious in patient with Cr >2 for possible further deterioration per UpToDate guidelines * Otherwise, wnl -- cholesterol 186, LDL 123, HDL 26 (12) DVT prophylaxis: * SCDs while inpatient. Encouraged ambulation Dispo: HD tomorrow -- possible discharge after Admission and Anticipated Discharge Date Admission Date: December 13, 2019 Supervising Physician Co-Signing Physician Notes PA Supervision Note: I did not personally see or examine the patient today, but I verified all vargas points of BRAULIO Drummond's assessment and plan with the following exceptions/additions: None Subjective Patient feeling better. Breathing is improved, but patient states he still gets short of breath with exertion. Confirmed with patient that he takes metoprolol 25mg by mouth TWICE daily instead of once daily. Will increase for this evening. States he has a non-productive cough. Denies fevers, chills, chest pain, abdominal pain, n/v/d. Patient underwent HD yesterday and removed 4.1L of fluid. Breathing comfortably with O2 sat 96% on room air. Discussed continuing another HD session tomorrow to see about removing additional fluid. All questions/concerns addressed. Discussed need for outpatient EGD and that we will arrange this prior to discharge. Review of Systems Review of Systems: All systems reviewed & are unremarkable except as noted in HPI & below Physical Exam Constitutional: WD/WN, vitals as above no acute distress Eyes: + anicteric sclerae and PERRL ENMT: Ears: no hearing impairment Nose: no external nose abnormality Neck: trachea midline, no thyromegaly Respiratory: normal respiratory effort, lungs clear to auscultation Cardiovascular: Rate/Rhythm: regular rate and regular rhythm Heart Sounds: + murmur (systolic, best appreciated RUSB with radiation to carotids) Extremities: no edema Gastrointestinal (Abdomen): normal bowel sounds, soft, nontender, no hepatosplenomegaly abdominal scar from previous surgery for diverticular disease Musculoskeletal: no cyanosis or clubbing, extremities motor strength 5/5 Skin: no rashes, warm and dry AV fistula L arm Neurologic: PERRL, EOMI, accommodation nl, no face palsy, no dysarthria Psychiatric: Orientation: alert and oriented x 3 Lymphatic: no cervical or axillary lymphadenopathy Results & Data ([facility]) Vital Signs (Past 12 Hours) Vital Signs Temp Pulse Pulse Resp BP Pulse Ox 12/14/19 11:20 36.7 C 58 L 18 166/97 H 96 12/14/19 07:06 36.3 C L 59 L 20 185/98 H 94 12/14/19 03:54 36.4 C L 57 L 18 157/98 H 93 Laboratory Results 12/14/19 12/14/19 12/14/19 Range/Units 16:10 11:16 07:27 WBC (4.8-10.8) K/uL RBC (4.7-6.1) M/uL Hgb (14.0-18.0) g/dL Hct (42-52) % MCV (80-100) fL MCH (25-34) pg MCHC (32-36) g/dL RDW Std Deviation (36.4-46.3) fL RDW Coeff of Lisseth (11.5-14.5) % Plt Count (130-400) K/uL MPV (7.4-10.4) fL Immature Gran % (Auto) % Neut % (Auto) % Lymph % (Auto) % [place] % (Auto) % Eos % (Auto) % Baso % (Auto) % Immature Gran # (Auto) (0.00-0.02) K/uL Neut # (Auto) (1.4-6.5) K/uL Lymph # (Auto) (1.2-3.4) K/uL [place] # (Auto) (0.11-0.59) K/uL Eos # (Auto) (0-0.5) K/uL Baso # (Auto) (0-0.2) K/uL Sodium (136-145) mmol/L Potassium (3.5-5.1) mmol/L Chloride (98-107) mmol/L Carbon Dioxide (21-32) mmol/L Anion Gap (3-11) BUN (7-18) mg/dl Creatinine (0.6-1.4) mg/dl Est Cr Clr Drug Dosing ml/min Est GFR ( Amer) Est GFR (Non-Af Amer) BUN/Creatinine Ratio (10-20) Glucose (70-99) mg/dl POC Glucose 100 H 73 (70-99) mg/dl Estimat Average Glucose 108 mg/dl Hemoglobin A1c 5.4 (4.5-5.6) % Calcium (8.5-10.1) mg/dl Total Bilirubin (0.2-1) mg/dl AST (15-37) U/L ALT (12-78) U/L Alkaline Phosphatase (45-117) U/L Total Protein (6.4-8.2) gm/dl Albumin (3.4-5.0) gm/dl Globulin (2.5-4.0) gm/dl Albumin/Globulin Ratio (0.9-2) Triglycerides (0-150) mg/dl Cholesterol (0-200) mg/dl LDL Cholesterol, Calc mg/dl VLDL Cholesterol, Calc mg/dl HDL Cholesterol mg/dl Cholesterol/HDL Ratio 12/14/19 12/14/19 12/14/19 Range/Units 07:27 07:27 07:13 WBC 3.92 L (4.8-10.8) K/uL RBC 4.04 L (4.7-6.1) M/uL Hgb 11.2 L (14.0-18.0) g/dL Hct 35.7 L (42-52) % MCV 88.4 (80-100) fL MCH 27.7 (25-34) pg MCHC 31.4 L (32-36) g/dL RDW Std Deviation 51.1 H (36.4-46.3) fL RDW Coeff of Lisseth 16.0 H (11.5-14.5) % Plt Count 207 (130-400) K/uL MPV 8.4 (7.4-10.4) fL Immature Gran % (Auto) 0.8 % Neut % (Auto) 74.2 % Lymph % (Auto) 13.0 % [place] % (Auto) 7.9 % Eos % (Auto) 3.6 % Baso % (Auto) 0.5 % Immature Gran # (Auto) 0.03 H (0.00-0.02) K/uL Neut # (Auto) 2.91 (1.4-6.5) K/uL Lymph # (Auto) 0.51 L (1.2-3.4) K/uL [place] # (Auto) 0.31 (0.11-0.59) K/uL Eos # (Auto) 0.14 (0-0.5) K/uL Baso # (Auto) 0.02 (0-0.2) K/uL Sodium 136 (136-145) mmol/L Potassium 4.5 (3.5-5.1) mmol/L Chloride 97 L (98-107) mmol/L Carbon Dioxide 31 (21-32) mmol/L Anion Gap 8.0 (3-11) BUN 29 H (7-18) mg/dl Creatinine 9.04 H* D (0.6-1.4) mg/dl Est Cr Clr Drug Dosing 10.4 ml/min Est GFR ( Amer) 6.8 Est GFR (Non-Af Amer) 5.8 BUN/Creatinine Ratio 3.2 L (10-20) Glucose 101 H (70-99) mg/dl POC Glucose 120 H (70-99) mg/dl Estimat Average Glucose mg/dl Hemoglobin A1c (4.5-5.6) % Calcium 8.7 (8.5-10.1) mg/dl Total Bilirubin 0.6 (0.2-1) mg/dl AST 10 L (15-37) U/L ALT 9 L (12-78) U/L Alkaline Phosphatase 89 (45-117) U/L Total Protein 8.0 (6.4-8.2) gm/dl Albumin 3.4 (3.4-5.0) gm/dl Globulin 4.6 H (2.5-4.0) gm/dl Albumin/Globulin Ratio 0.7 L (0.9-2) Triglycerides 186 H (0-150) mg/dl Cholesterol 186 (0-200) mg/dl LDL Cholesterol, Calc 123 mg/dl VLDL Cholesterol, Calc 37 mg/dl HDL Cholesterol 26 mg/dl Cholesterol/HDL Ratio 7 Diagnostic Findings CHEST 2 VIEW IMPRESSION: Mild improvement of the findings of congestive failure. RIGHT HIP/PELVIS XRAY 1. Findings are consistent with renal osteodystrophy. There is mild degenerative change as above with no acute bony abnormality identified. 2. The sclerotic lesion of the right ilium seen by CT is not well-visualized by x-ray. This is unchanged dating back to a 2006 CT and is typical in appearance for a bone island. PG Care Time/CCT Total # of Minutes Spent Total Time Spent with Patient: Total time spent is greater than 50% in coordination of care (as documented) at patient's floor/unit and/or counseling patient: Coding Level of Care Code 38101 Subseq Hosp Care Lvl 3 Diagnoses Acute respiratory failure J96.00 Pneumonia J18.9 Esophagitis K20.9 Volume overload E87.70 Hypervolemia type: unspecified Osteonecrosis M87.9 ESRD (end stage renal disease) on dialysis N18.6; Z99.2 Hypertension I10 Anemia due to chronic kidney disease N18.9; D63.1 Pre-diabetes R73.03 Hyperparathyroidism E21.3 High triglycerides E78.1 DVT prophylaxis Z29.9 (1) Volume overload Hypervolemia type: unspecified Qualified Code(s): E87.70 - Fluid overload, unspecified
[2019-12-14] MEDS: cefTRIAXone SODIUM 2,000 MG in DEXTROSE 5% 50 ML IV SCH (14:19)
--- NOTE | 2019-12-14 14:35 | Electrocardiogram Report ---
Test Reason : Blood Pressure : / mmHG Vent. Rate : 059 BPM Atrial Rate : 059 BPM P-R Int : 208 ms QRS Dur : 094 ms QT Int : 458 ms P-R-T Axes : 043 033 057 degrees QTc Int : 453 ms Sinus bradycardia Otherwise normal ECG When compared with ECG of 13-DEC-2019 09:07, (unconfirmed) No significant change was found Confirmed by Christopher Jaimes ([id number]) on 12/14/2019 2:34:57 PM Referred By: REFERRED SELF Confirmed By:Christopher Jaimes
--- NOTE | 2019-12-14 19:50 | Magnetic Resonance Report ---
MR pelvis wo con CLINICAL HISTORY: 54 years-old Male presenting with sclerotic lesion right lilium. TECHNIQUE: Multisequence, multiplanar MR imaging of the pelvis was performed without the use of intra venous contrast. IV contrast: None. COMPARISON: CT from 12/13/2019, plain radiograph of the pelvis from 12/14/2019, CT from 11/14/[address] from 03/03/2007. FINDINGS: Localizer images: Unremarkable. The sclerotic osseous lesion in the right ilium appears as a region of T2 hypointensity without surro unding marrow changes. Cystic changes noted at the right superior acetabulum which is nearby though l ikely unrelated. The sclerotic region on recent CT has been present since 2006 though slightly altere d morphology. The cystic change at the superior acetabulum has slightly increased in size since 2016. Lesser degree of cystic change at the superior acetabulum on the left. No acute fracture. No evidence of advanced degenerative change of the hip joints. Sacroiliac joints w ith mild degenerative change and associated trace bony edema in the bilateral payal subjacent to the S I joints. Mild degenerative changes of the lumbar spine. Limited evaluation of the intrapelvic contents demonstrates a normal prostate and urinary bladder. No free fluid. Grossly normal bowel. Right lower quadrant renal transplant kidney noted. Normal signal intensity and bulk of the musculature. IMPRESSION: 1. Sclerotic osseous lesion in the right ilium is almost certainly benign. This does not have a papo acteristic pattern suggestive of osteonecrosis. 2. Cystic change along the bilateral superior acetabula, which has increased in size on the left in comparison to 2016. This could represent a geode/intraosseous ganglion among other benign etiologies. ACT 112: Negative or not required by law. Electronically signed by: Noé Gunn M.D. 12/14/2019 7:48 PM
[2019-12-14] MEDS: METOPROLOL TARTRATE 25 MG TAB PO SCH (21:13)
[2019-12-15 06:55] LABS: Basophils # (auto) 0.02 K/uL (0-0.2); Basophils % (auto) 0.4 %; Eosinophils # (auto) 0.21 K/uL (0-0.5); Eosinophils % (auto) 4.4 %; Hematocrit (blood only) 34.8 % (42-52); Hemoglobin 11.2 g/dL (14.0-18.0); Immature Granulocytes # (auto) 0.04 K/uL (0.00-0.02); Immature Granulocytes % (auto) 0.8 %; Lymphocytes # (auto) 0.71 K/uL (1.2-3.4); Lymphocytes % (auto) 14.8 %; Mean Corpuscular Hemoglobin 28.4 pg (25-34); Mean Corpuscular Hgb Conc 32.2 g/dL (32-36); Mean Corpuscular Volume 88.1 fL (80-100); Mean Platelet Volume 8.7 fL (7.4-10.4); Monocytes # (auto) 0.37 K/uL (0.11-0.59); Monocytes % (auto) 7.7 %; Neutrophils # (auto) 3.45 K/uL (1.4-6.5); Neutrophils % (auto) 71.9 %; Platelet Count 242 K/uL (130-400); RDW Standard Deviation 51.1 fL (36.4-46.3); Red Blood Count 3.95 M/uL (4.7-6.1)
[2019-12-15] MEDS ORDERED: SODIUM CHLORIDE 0.9% 1000ML 1,000 ML IV PRN (07:00)
[2019-12-15] MEDS ORDERED: HEPARIN SOD (PORCINE) 1000 UNIT/ML 10 ML VIAL IV ONE (07:00)
[2019-12-15 07:36] LABS: Albumin Globulin Ratio 0.7 (0.9-2); Albumin Level 3.3 gm/dl (3.4-5.0); BUN Creatinine Ratio 3.8 (10-20); Bilirubin,Total 0.4 mg/dl (0.2-1); Calcium 8.9 mg/dl (8.5-10.1); Creatinine Clr Calc Pharmacy 7.7 ml/min; Est GFR (African American) 4.7; Globulin 4.4 gm/dl (2.5-4.0); Potassium 4.4 mmol/L (3.5-5.1); Total Protein 7.7 gm/dl (6.4-8.2)
[2019-12-15] MEDS: SEVELAMER HCL 800 MG TABLET PO SCH ×4 (08:02→17:07)
[2019-12-15] MEDS: PANTOprazole 40 MG TAB PO SCH (08:03)
[2019-12-15] MEDS: FLUTICASONE/VILANTEROL 200/25MCG 14 PUFFS/INHALER INH SCH (08:03)
--- NOTE | 2019-12-15 09:59 | Dialysis Progress Note ---
Date of Service December 15, 2019 Assessment & Plan (1) ESRD (end stage renal disease) on dialysis: Mr. Levy appears to be doing quite well. He has lost a significant amount of weight since being admitted and should lose more today with his dialysis treatment.He has no current symptoms of uremia or volume overload. I think he should be able to be discharged on his routine medications after today's dialysis treatment. I will certainly follow-up with him at the dialysis unit in [place]..We will continue to adjust his dry weight in an effort to better control his blood pressure and prevent future episodes of significant volume overload with respiratory embarrassment. No other immediate recommendations. (2) Volume overload: Subjective Mr. LevySays that he has been feeling relatively well. He denies being short of breath at rest or with limited exertion. He does say that he gets a bit short of breath when walking a long distance. He denies PND or orthopnea.He has had no chest pain. He denies having a cough. He has no symptoms of uremia. His appetite is good. He was S seen during his dialysis treatment and seemed to be quite comfortable and well. He has no other complaints.He was noted to have a sclerotic area in his pelvis and an MRI was done. It is felt that the abnormality is most certainly benign and is not having any pelvic or other bone pain.. It is felt that the abnormality is most certainly benign and is not having any pelvic or other bone pain. Physical Exam Physical Exam: On physical examination, Mr. Levy appears relatively well. He seemed to be comfortable during his dialysis treatment. He was lying in bed at about a 45 degree angle.On physical examination, Mr. Levy appears relatively well. He seemed to be comfortable during his dialysis treatment. He was lying in bed at about a 45 degree angle.His blood pressure this morning was 159/68 with a pulse of 62 and regular. His respiratory rate is 19 with a pulse ox of 95% on room air. He is afebrile (36.4).His skin shows normal skin turgor. He has no rash or infiltrative skin disease. He has scars from prior surgical procedures as noted including a left upper arm AV fistula scar. The fistula is dilated and there are multiple dialysis needle track kyle over the fistula.He has a right lower quadrant scar from his kidney transplant and a large scar in the mid back from the resection of an apparent cutaneous malignancy. He has abdominal scars from prior surgery for diverticular disease.He has no palpable lymphadenopathy. His head is normal. Eyes are grossly normal other than some minimal conjunctival injection. Ears, nose, mouth and throat are unremarkable. His oral mucous membranes are moist. His neck is supple. At 45 degrees I see no jugular venous distention. I hear no carotid bruit. There is no thyromegaly. His chest is clear to auscultation. Cardiac exam shows a regular rhythm. S1 and S2 are normal. He has a grade 2/6 soft systolic murmur at the base radiating toward the neck. No gallop sounds are heard. He has no pericardial friction rubs. His abdomen is nontender. He has no organomegaly or mass.Bowel sounds are normal. He has no abdominal bruits. Extremities show no cyanosis, clubbing or peripheral edema. Peripheral pulses are intact. His neurologic exam shows no lateralizing changes.He has no asterixis. Results & Data ([facility]) Vital Signs (Past 12 Hours) Vital Signs Temp Pulse Pulse Pulse Resp BP BP 12/15/19 09:40 62 159/68 H 12/15/19 09:20 58 L 158/94 H 12/15/19 09:13 60 161/93 H 12/15/19 09:05 36.4 C L 59 L 12/15/19 07:29 36.5 C 60 19 169/96 H 12/15/19 06:36 36.5 C 65 19 162/93 H 12/15/19 03:22 36.4 C L 64 19 166/92 H 12/14/19 23:17 36.3 C L 63 19 179/103 H Pulse Ox 12/15/19 09:40 12/15/19 09:20 12/15/19 09:13 12/15/19 09:05 12/15/19 07:29 95 12/15/19 06:36 97 12/15/19 03:22 95 12/14/19 23:17 96 Laboratory Results Laboratory Results - last 24 hr 12/14/19 12/14/19 12/14/19 11:16 16:10 20:23 WBC RBC Hgb Hct MCV MCH MCHC RDW Std Deviation RDW Coeff of Lisseth Plt Count MPV Immature Gran % (Auto) Neut % (Auto) Lymph % (Auto) [place] % (Auto) Eos % (Auto) Baso % (Auto) Immature Gran # (Auto) Neut # (Auto) Lymph # (Auto) [place] # (Auto) Eos # (Auto) Baso # (Auto) Sodium Potassium Chloride Carbon Dioxide Anion Gap BUN Creatinine Est Cr Clr Drug Dosing Est GFR ( Amer) Est GFR (Non-Af Amer) BUN/Creatinine Ratio Glucose POC Glucose 73 100 H 110 H Calcium Total Bilirubin AST ALT Alkaline Phosphatase Total Protein Albumin Globulin Albumin/Globulin Ratio 12/15/19 12/15/19 12/15/19 06:10 06:10 07:08 WBC 4.80 RBC 3.95 L Hgb 11.2 L Hct 34.8 L MCV 88.1 MCH 28.4 MCHC 32.2 RDW Std Deviation 51.1 H RDW Coeff of Lisseth 16.0 H Plt Count 242 MPV 8.7 Immature Gran % (Auto) 0.8 Neut % (Auto) 71.9 Lymph % (Auto) 14.8 [place] % (Auto) 7.7 Eos % (Auto) 4.4 Baso % (Auto) 0.4 Immature Gran # (Auto) 0.04 H Neut # (Auto) 3.45 Lymph # (Auto) 0.71 L [place] # (Auto) 0.37 Eos # (Auto) 0.21 Baso # (Auto) 0.02 Sodium 136 Potassium 4.4 Chloride 98 Carbon Dioxide 27 Anion Gap 11.0 BUN 47 H D Creatinine 12.30 H* D Est Cr Clr Drug Dosing 7.7 Est GFR ( Amer) 4.7 Est GFR (Non-Af Amer) 4.0 BUN/Creatinine Ratio 3.8 L Glucose 107 H POC Glucose 141 H Calcium 8.9 Total Bilirubin 0.4 AST 10 L ALT 9 L Alkaline Phosphatase 93 Total Protein 7.7 Albumin 3.3 L Globulin 4.4 H Albumin/Globulin Ratio 0.7 L Coding Level of Care Code 45974 Subseq Hosp Care Lvl 3 Diagnoses ESRD (end stage renal disease) on dialysis N18.6; Z99.2 Volume overload E87.70 Hypervolemia type: unspecified (1) Volume overload Hypervolemia type: unspecified Qualified Code(s): E87.70 - Fluid overload, unspecified
--- NOTE | 2019-12-15 13:01 | Hospitalist Progress Note ---
Date of Service December 15, 2019 Assessment & Plan Admission and Anticipated Discharge Date Admission Date: December 13, 2019 Results & Data ([facility]) Vital Signs (Past 12 Hours) Vital Signs Temp Pulse Pulse Pulse Resp BP BP 12/15/19 12:40 64 105/67 12/15/19 12:24 66 105/69 12/15/19 12:00 68 98/49 L 12/15/19 11:40 59 L 94/75 L 12/15/19 11:20 64 118/79 12/15/19 11:00 66 122/86 12/15/19 10:40 63 122/84 12/15/19 10:20 61 135/80 12/15/19 10:00 60 142/91 H 12/15/19 09:40 62 159/68 H 12/15/19 09:20 58 L 158/94 H 12/15/19 09:13 60 161/93 H 12/15/19 09:05 36.4 C L 59 L 12/15/19 07:29 36.5 C 60 19 169/96 H 12/15/19 06:36 36.5 C 65 19 162/93 H 12/15/19 03:22 36.4 C L 64 19 166/92 H Pulse Ox 12/15/19 12:40 12/15/19 12:24 12/15/19 12:00 12/15/19 11:40 12/15/19 11:20 12/15/19 11:00 12/15/19 10:40 12/15/19 10:20 12/15/19 10:00 12/15/19 09:40 12/15/19 09:20 12/15/19 09:13 12/15/19 09:05 12/15/19 07:29 95 12/15/19 06:36 97 12/15/19 03:22 95 PG Care Time/CCT Total # of Minutes Spent Total Time Spent with Patient: Total time spent is greater than 50% in coordination of care (as documented) at patient's floor/unit and/or counseling patient: Coding
[2019-12-15] MEDS: METOPROLOL TARTRATE 25 MG TAB PO SCH (13:14)
[2019-12-15] MEDS: HEPARIN SOD (PORCINE) 1000 UNIT/ML 10 ML VIAL IV SCH (13:15)
--- NOTE | 2019-12-15 14:26 | Discharge Summary ---
Date of Service December 15, 2019 Admission HPI Per Admitting Provider The patient is a 54 years old male with past medical history of end-stage renal disease, diabetes mellitus type 2, hypercholesterolemia, hypothyroidism, hypertension, kidney transplant failure, who presents to the emergency room with a complaint of shortness of breath. Patient reports that he feels short of breath for almost 1 month. Patient does not wear oxygen at home but now he requires 2 L at rest. He also complains of some nausea and vomited once or twice since this morning. Patient denies fever, chills, chest pain, diarrhea, melena, hemoptysis, syncope, or near syncope. The labs are reviewed: WBCs 6.74, hemoglobin 10, hematocrit 31.1, platelets 207, PT 11.3, INR 1.1, APTT 28.7, sodium 136, potassium 4.8, chloride 98, carbon dioxide 29, anion gap 9, BUN 54, creatinine 12.7, GFR 3.9,Glucose 115, calcium 8.5, total bilirubin 0.5, AST 9, ALT 10, alkaline phosphatase 88, troponin 0.015, BNP 14807, albumin 3.3, globulin 4.1, albumin globulin ratio 0.6, lipase 514, TSH pending. Chest x-ray is show cardiomegaly and diffuse elevation of the interstitium, consistent with congestive heart failure/fluid overload. There is no lobar consolidation. There is no pleural effusion. CT scan of abdomen and pelvis show extensive patchy nodular groundglass infiltrates at the lung bases. Other findings of vascular engorgement and interlobular septal thickening favor moderate pulmonary edema and congestive changes. Please ensure the absence of infectious symptoms. Consider dedicated chest CT. Following for noncontrast technique no acute intra-abdominal pathology. Severe venetie renal atrophy and right lower quadrant renal transplant. No hydronephrosis. Postsurgical changes of the partial sigmoid colectomy. Pancolonic diverticulosis without evidence of diverticulitis. Moderate to severe circumstantial wall thickening of the esophagus this may represent esophagitis gastroenterology consultation for possible nonsurgeon as a viable gastroduodenoscopy recommended renal osteodystrophy and hemodialysis associated with weight atrophy in the spine. Chronic sclerotic changes of the right ilium. Slightly increased from prior. Possibly osteonecrosis among other etiologies. The decision was made to admit patient to PCU on telemetry for volume overload, hypertensive urgency, thickening of the esophageal wall-esophagitis. Admission Exam Per Admitting Provider Constitutional: WD/WN, vitals as above well developed, + ill appearing and + obese Looking older than his age Eyes: PERRL, conjunctivae normal, anicteric sclerae ENMT: external ear and nose normal, oropharynx normal Neck: trachea midline, no thyromegaly Respiratory: normal respiratory effort, lungs clear to auscultation Cardiovascular: Heart Sounds: normal S1, normal S2 and + murmur Palpation: + palpable S3 Vessels: dorsalis pedis pulses present Gastrointestinal (Abdomen): normal bowel sounds, soft, nontender, no hepatosplenomegaly Musculoskeletal: no cyanosis or clubbing, extremities motor strength 5/5 Skin: no rashes, warm and dry Neurologic: patellar DTR's 2+ bilat, sensation intact Psychiatric: A+Ox3, euthymic affect Lymphatic: no cervical or axillary lymphadenopathy Principal Diagnosis Acute Respiratory Failure secondary to Volume Overload ESRD Discharge Exam Constitutional WD/WN, vitals as above no acute distress Eyes + anicteric sclerae and PERRL ENMT Ears: no hearing impairment Nose: no external nose abnormality Neck trachea midline, no thyromegaly Respiratory normal respiratory effort, lungs clear to auscultation Cardiovascular Rate/Rhythm: regular rate and regular rhythm Heart Sounds: + murmur (systolic, best appreciated RUSB with radiation to carotids) Extremities: no edema Gastrointestinal (Abdomen) normal bowel sounds, soft, nontender, no hepatosplenomegaly Musculoskeletal no cyanosis or clubbing, extremities motor strength 5/5 Skin no rashes, warm and dry AV fistula LUE Neurologic PERRL, EOMI, accommodation nl, no face palsy, no dysarthria Psychiatric Orientation: alert and oriented x 3 Lymphatic no cervical or axillary lymphadenopathy Discharge Data Allergies Allergy/AdvReac Type Severity Reaction Status Date / Time adhesive Allergy Mild SKIN Verified 12/13/19 09:45 IRRITATION morphine AdvReac Intermediate Verified 12/13/19 09:45 aspirin AdvReac Mild NOSE BLEED Verified 12/13/19 09:45 Consultations 12/13/19 10:52 ED Decision to Admit Stat 12/13/19 12:49 Consult Gastroenterology Routine Consult Nephrology Routine Consult Orthopedic Surgery Routine 12/15/19 09:58 Consult Case Management - Discharge Planning Routine Ordered Studies 12/13/19 09:55 CT abd pelvis wo con Stat 12/13/19 13:30 CT chest wo con Stat 12/14/19 12:57 MR pelvis wo con Routine Hospital Course (1) Acute respiratory failure: * RESOLVED -- 97% on RA * Secondary to volume overload over the past month - BNP was 70348. Wt 104.7kg on admission -- currently 99.1kg Patient underwent HD on 12/12 which removed 4.1L. Patient currently 97% on RA. Initial elevation in procalcitonin negligible in ESRD -- antibiotics discontinued as likely volume overload instead of infectious process. Pt continued to be afebrile, no leukocytosis. * CXR with improvement in congestion * HD on day of discharge for additional 3.5L * Guaifenesin/dextromethorphan prn cough while inpatient. Given albuterol inhaler to utilize prn (2) Pneumonia: * PNA RULED OUT * Based on CT abdomen and pelvis there were ground glass opacities and infiltrates located bilaterally in the patient lungs -- decision to pursue dedicated CT chest * CT Chest with trace pericardial and pleural effusions, R>L. mild intralobular septal thickening with multilobar multi segmental distribution of bilateral ground glass densities suggestive of interstitial and alveolar pulmonary edema. Nonspecific wall thickening of mid/distal esophagus (will need outpatient EGD in the next week, to be arranged -- was previously supposed to be done inpatient but had elevated K at 5.7 and did not follow up outpatient) * Patient continued to be afebrile, no leukocytosis * Blood cultures NGTD * Robitussin, albuterol HFA prn * Sent with albuterol HFA --> discussed that if volume overload, this may not help with SOB. If bronchospasm, it may provide benefit. Sent with HFA from inpatient stay (3) Esophagitis: * Moderate to severe circumferential wall thickening of the esophagus. Possible esophagitis. * Started on Protonix 40mg daily -- continued at discharge * Consulted GI --> to have EGD as outpatient. Scheduled follow up appointment for patient prior to d/c on December 29. (4) Volume overload: * See above -- 4.1L via HD on 12/12 * HD on 12/14 with removal of additional 3.5L * Held metoprolol while patient is in hemodialysis --> continued home meds at d/c, metoprolol tartrate 25mg PO BID (5) Osteonecrosis: * Chronic sclerotic lesion in the right ilium slightly increased on imaging, which prompted orthopedics consult for sclerotic lesion R ilium. MRI ordered -- benign in nature * Denied pain (6) ESRD (end stage renal disease) on dialysis: * As discussed above. Patient previously renal transplant but non- compliance with immunosuppressive agents secondary to cost. Currently back on transplant list. Undergoes HD MWF in [place] * Creatinine improved from 12.7 to 9.04 following dialysis Friday, but increased to 12 prior to HD * Consulted nephrology * Continue MWF HD in [place] -- close follow up outpatient with Dr. Hayward to obtain true dry weight * Continue to monitor (7) Hypertension: * Patient had been receiving metoprolol XL 25mg once daily on admission -- corrected after discussion with patient, he is to be on metoprolol tartrate 25mg BID -- continued at discharge * BP stable, 126/79 (8) Anemia due to chronic kidney disease: * Stable. In setting of ESRD * Improved H/h 11.2/35.7 (9) Pre-diabetes: * Hx, per chart. * A1c 5.4 -- not technically even considered pre-DM (10) Hyperparathyroidism: * Continued home Parsabiv 12.5mg three times weekly (11) High triglycerides: * Lipid panel with elevated triglycerides at 186 -- could consider initiating gemfibrozil, however would be cautious in patient with Cr >2 for possible further deterioration per UpToDate guidelines -- will defer to PCP * Otherwise, wnl -- cholesterol 186, LDL 123, HDL 26 (12) DVT prophylaxis: * SCDs while inpatient. Encouraged ambulation Discharged home Total Time Total Time Spent Total Time Spent (In Minutes): 60 Discharge Plan Discharge Items Patient Disposition: Home - Self-Care Reason For Visit: VOLUME OVERLOAD Discharge Diagnosis: Acute Respiratory Failure due to Volume Overload Condition on Discharge: Fair Goals: You have been hospitalized for an acute medical problem. During your stay at [facility], we have made an effort to correct the problem that brought you to the hospital while keeping you as comfortable as possible. Medications were used to bring your condition under control and your discharge instructions will include directions for any medications you should take after leaving the hospital. Please make sure you see your Primary Care Provider as part of your follow up plan. Activity: Resume your previous activity Non-emergency contact: Primary Care Provider and House Father Call non-emergency contact if: you have any medication questions and your symptoms worsen Follow-up/Referrals: Yoav Hayward MD [Primary Care Provider] - 12/23/19 3:45 pm (Follow up within 1 week.) Charles Burks MD [Physician] - 12/30/19 3:00 pm (Please, follow up at [facility] Gastroenterology Office with Dr. Burks on December 29 at 3:00 pm. *The office is located at [address] [place] [address] in [place]. If you need to change this appointment, call the office at [phone].) Diet: Heart Healthy Addtl Attending Provider Instructions: You have been hospitalized for shortness of breath and respiratory failure that was due to excess fluid, termed "volume overload". You had two hemodialysis sessions that removed over 4 liters on Friday and 3.5 liters on Friday (today). Please follow up with your dialysis, [id number], schedule in [place]. Please follow up with Dr. Hayward as you determine your dry weight. You have been given an albuterol inhaler. As discussed, if shortness of breath due to excess volume, this will not help your breathing. If you are having a spasm, this may help to open up your airway. You have been sent with the inhaler from your inpatient stay. Please continue your home medications, metoprolol succinate 25mg by mouth TWICE daily and your Renvela three times daily with meals. You have been set up with an appointment with Dr. Burks (gastroenterology) to h ave an EGD done to evaluate changes seen on imaging. This was previously to be done, but it is stressed the importance of following up on this as an outpatient. Your appointment is December 29 at 3pm to discuss having this scheduled. You have been started on, and sent a prescription to continue protonix (pantoprazole) 40mg by mouth daily. Please follow up with your primary care provider in the next 3-5 days. Please go to the closest emergency room if you experience any worsening shortness of breath or for any symptoms that are concerning for you. It has been a pleasure being a part of the medical team providing for you during your hospitalization. Take care! Pending Studies at Discharge: No Stand-Alone Forms: My [facility], Smoking Cessation Medications and DC Order Prescriptions: New pantoprazole 40 mg Tablet,Delayed Release (Dr/Ec) 40 mg PO QAM Qty: 30 RF: 1 albuterol sulfate [Ventolin HFA] 90 mcg/actuation Hfa Aerosol Inhaler 2 puff inhalation Q4H PRN (Reason: shortness of breath or wheezing) 14 Days Qty: 8 RF: 0 Continued Parsabiv 5 mg/mL Solution 12.5 mg IV [id number] RF: 0 metoprolol tartrate 25 mg tablet 25 mg PO BID RF: 0 sevelamer carbonate [Renvela] 800 mg tablet 2,400 mg PO TIDM RF: 0 Discharge Orders: Discharge Order (Routine); Ordered 12/15/19 Ordered By: Jeaneth Jones Admission Data Admit Date/Time: 12/13/19 10:59 Attending Provider: Jeaneth Jones Admit Provider: Sofiya Tavarez Primary Care Provider: Yoav Hayward Other Providers: Ritu Quezada ; Domingo Titus ; Turner Peres ; Sofiya Tavarez Other Interventions: Discharge Summary Assessment (RN) Last Done: 12/15/19 17:58 DC Date/Time DO NOT enter until pt leaves facility: 12/15/19 18:30 Supervising Physician Co-Signing Physician Notes PA Supervision Note: I personally saw and examined the patient. I verified all vargas points and agree with BRAULIO Drummond with the following exceptions and/or additions: Pt much improved, no resp distress, not on O2. VSS NAD, AAOx3 RRR no mgr CTAB no wcr ABd +BS soft NT ND Stable for dc to home after HD today Coding Level of Care Code D/C Day Management >30 mins Diagnoses Acute respiratory failure J96.00 Pneumonia J18.9 Esophagitis K20.9 Volume overload E87.70 Hypervolemia type: unspecified Osteonecrosis M87.9 ESRD (end stage renal disease) on dialysis N18.6; Z99.2 Hypertension I10 Anemia due to chronic kidney disease N18.9; D63.1 Pre-diabetes R73.03 Hyperparathyroidism E21.3 High triglycerides E78.1 DVT prophylaxis Z29.9
[2019-12-15] MEDS ORDERED: ALBUTEROL HFA 8 GM INHALER INH PRN (15:00)
== END 2019-12-15 18:30 | disposition home or self-care (01) | DRG 193 ==
LOC: ED 09:00 → 2S 10:59 → SUATTDRO 10:59 → 2S 11:47
DX: Z94.0 Kidney transplant status; Z82.49 Family history of ischemic heart disease and other diseases of the circulatory system; J18.9 Pneumonia, unspecified organism; Z83.3 Family history of diabetes mellitus; J96.00 Acute respiratory failure, unspecified whether with hypoxia or hypercapnia; I50.9 Heart failure, unspecified; I13.2 Hypertensive heart and chronic kidney disease with heart failure and with stage 5 chronic kidney disease, or end stage renal disease; N25.0 Renal osteodystrophy; Z85.820 Personal history of malignant melanoma of skin; E21.3 Hyperparathyroidism, unspecified; M89.8X8 Other specified disorders of bone, other site; E78.5 Hyperlipidemia, unspecified; M87.050 Idiopathic aseptic necrosis of pelvis; D63.1 Anemia in chronic kidney disease; Z88.5 Allergy status to narcotic agent; K20.9 Esophagitis, unspecified; Z88.6 Allergy status to analgesic agent; E66.9 Obesity, unspecified; K57.90 Diverticulosis of intestine, part unspecified, without perforation or abscess without bleeding; N03.9 Chronic nephritic syndrome with unspecified morphologic changes; Z93.3 Colostomy status; Z68.34 Body mass index [BMI] 34.0-34.9, adult; N18.6 End stage renal disease

== ENCOUNTER 2021-07-13 09:20 | Inpatient (IN) ==
[2021-07-13] MEDS ORDERED: ALBUT/IPRATROP 3MG/0.5MG NEB 3 ML VIAL NEB STA (09:39)
--- NOTE | 2021-07-13 09:45 | Emergency Department Note ---
Impression & Plan SOB (shortness of breath), Volume overload, Pneumonia, COVID-19 ED Provider Note NAME: RICCO GE AGE: 55 SEX: M : 1965 ARRIVES VIA: Ambulance INFORMANT: [Patient][ems] ED PROVIDER(S): [Laurent Russell MD] CHIEF COMPLAINT: Short of breath HISTORY OF PRESENT ILLNESS: The patient is a 55-year-old male who presents with 2 or 3 weeks of increasing dyspnea. He was at dialysis today but, because of the symptoms, he was sent by ambulance to the ED. Dialysis was not performed. He did have dialysis 2 days ago as scheduled on Friday. The patient admits to some cough. He has a bad taste in his mouth but can taste any does have his smell. He is not vaccinated against COVID-19. His works in the [employer]. The patient denies any fever. He complains of some nausea from his coughing. No diarrhea. No chest pain. His shortness of breath is all the time, even sitting still. He does not have COPD, he does not wear oxygen. REVIEW OF SYSTEMS: See HPI for pertinent positives and negatives. A total of ten systems were reviewed and were otherwise negative. PMHx/PSHx: See Below SOCIAL HISTORY: See Below. PHYSICAL EXAM: GENERAL: Patient is in no acute distress. HEENT: No acute trauma, normocephalic atraumatic, mucous membranes moist, no nasal congestion, no scleral icterus. NECK: No stridor, no adenopathy, no meningismus, trachea is midline. LUNGS: Clear to auscultation bilaterally, no wheeze, no rhonchi, breath sounds equal. No respiratory distress. Speaks in full sentences. HEART: Without murmurs gallops or rubs, regular rate and rhythm. ABDOMEN: Soft, nontender, bowel sounds positive, no hernias, no peritonitis. EXTREMITIES: No cyanosis or edema, full range of motion of all the joints without pain or difficulty, no signs for acute trauma. NEUROLOGIC: Oriented x 3, no acute motor or sensory deficits, no focal weakness. SKIN: No rash, no jaundice, no diaphoresis. DIFFERENTIAL DIAGNOSIS: Reactive airway disease, pneumonia, pneumothorax, COPD, COVID-19, CHF, infection, cardiac ischemia, pulmonary embolism, bronchitis, musculoskeletal, gastrointestinal, as well as other pathologies. EMERGENCY DEPARTMENT COURSE/PROCEDURES: ECG: Indication was dyspnea. The ECG shows a sinus rhythm with a first-degree AV block. There is no ST elevation, no PVCs. QTC is 453. Continuous Cardiac Monitoring: An order was placed for continuous cardiac monitoring. The monitor shows a rate of 72 with normal sinus rhythm. Critical Care Note: I have personally spent 53 minutes of critical care time in the direct management of this patient. This includes bedside care, interpretation of diagnostic studies, and testing, discussion with consultants, patient, and family members, and other required patient management activities. This 53 minutes is in excess of all separately billable procedures. MEDICAL DECISION MAKING: There is no leukocytosis or worrisome anemia. There is a normal platelet count. Renal panel testing shows a high creatinine consistent with his dialysis need. No significant electrolyte abnormality in need of emergent correction. No concerning liver enzyme elevation. Covid testing returned positive. ECG showed a sinus rhythm, no acute ischemic change. Cardiac enzyme testing x1 is not consistent with acute cardiac injury. Chest x-ray shows a bilateral pneumonia. The pneumonia is quite severe. There may also be some fluid overload. Chest CT shows no PE, bilateral infiltrates were seen. The patient was given a DuoNeb during his ED stay. He was kept on the cardiac cath rn. I did speak with nephrology. The patient missed dialysis today and is volume overloaded, he will require dialysis. This is being arranged. The patient, in addition to volume overload, is suffering from a Covid pneumonia. The Covid infection, the volume overload has caused his dyspnea. He does require a hospital stay. I spoke to the patient, I spoke with the case management specialist. The on-call hospitalist was consulted. Past Med/Surg History Medical History Anemia due to chronic kidney disease Chronic back pain Diabetes mellitus diet controlled Esophageal reflux controlled ESRD (end stage renal disease) on dialysis [facility]lsis clinic [facility]/ History of blood transfusion 4 years ago (in setting of plasmaphoresis for kidney issues) Hx of malignant skin melanoma Hypercholesterolemia Hyperparathyroidism Hypertension Kidney transplant failure Mild aortic valve stenosis Per 12/06/19 ECHO Obesity Osteoarthritis Surgical History H/O radical excision of skin lesion back r/t melanoma History of bowel resection r/t diverticulitis History of cataract surgery bilateral History of colonoscopy History of colostomy History of colostomy reversal ~2006 History of esophagogastroduodenoscopy (EGD) 08/20/19: MAC sedation at [facility] History of kidney transplant ~2008 S/P arteriovenous (AV) fistula creation left arm Family History Mother Family history of diabetes mellitus Father FHx: myocardial infarction, Onset Age: 69 Other No family history of adverse response to anesthesia Denies family history of Crohn's disease Colorectal cancer Ulcerative colitis Social History Smoking Status: Never smoker Second Hand Exposure: No; Hx Alcohol Use: Yes Alcohol type: beer and wine Alcohol Intake Frequency: Monthly or Less Hx Substance Use: No Preferred Language: Japanese Communication Ability: Effective 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 Beliefs That Will Affect Care: None Current Living Situation: Alone Feels Safe at Home: Yes Assistive Devices: Glasses Allergies Allergies Allergy/AdvReac Type Severity Reaction Status Date / Time adhesive Allergy Mild SKIN Verified 07/13/21 11:46 IRRITATION morphine AdvReac Intermediate "WACKS ME Verified 07/13/21 11:46 OUT, DO THINGS THAT CAN'T REMEMBER" aspirin AdvReac Mild NOSE BLEED Verified 07/13/21 11:46 Home Meds Home Medications Medication Instructions Recorded Confirmed atorvastatin 40 mg tablet (Lipitor) 40 mg PO QAM 07/13/21 07/13/21 sodium polystyrene sulfonate 15 g PO [id number] 07/13/21 07/13/21 sucroferric oxyhydroxide 500 mg 1,000 mg PO TIDM 07/13/21 07/13/21 chewable tablet (Velphoro) vitamin B complex-vitamin C-folic 1 tab PO QAM 07/13/21 07/13/21 acid 0.8 mg tablet (Nephro-Monserrat) Results & Data (ED) Vital Signs Vital Signs - 24 hr 07/13/21 09:32 07/13/21 09:40 07/13/21 09:46 Temperature 36.9 C Temperature Source Oral Pulse Rate 95 H 120 H Pulse Rate [Apical] Pulse Rate from SpO2 Sensor 74 Respiratory Rate 13 16 Respiratory Effort / Characteristics Blood Pressure 173/118 H Blood Pressure Mean 136 Pulse Oximetry 99 98 Oxygen Delivery Method Room Air Room Air Sepsis Recent Fever Within 48 Hours No Sepsis New/Unexplained Change in Mental Status No Sepsis Action Taken by Nursing No Action Required 07/13/21 09:52 07/13/21 10:00 07/13/21 10:30 Temperature Temperature Source Pulse Rate 112 H 137 H Pulse Rate [Apical] 126 H Pulse Rate from SpO2 Sensor 66 74 Respiratory Rate 17 21 Respiratory Effort / Characteristics Non-Labored Spontaneous Blood Pressure Blood Pressure Mean Pulse Oximetry 96 94 93 Oxygen Delivery Method Room Air Sepsis Recent Fever Within 48 Hours Sepsis New/Unexplained Change in Mental Status Sepsis Action Taken by Nursing 07/13/21 11:00 07/13/21 11:30 07/13/21 12:00 Temperature Temperature Source Pulse Rate 89 146 H 129 H Pulse Rate [Apical] Pulse Rate from SpO2 Sensor 78 80 77 Respiratory Rate 21 24 24 Respiratory Effort / Characteristics Blood Pressure Blood Pressure Mean Pulse Oximetry 93 95 97 Oxygen Delivery Method Sepsis Recent Fever Within 48 Hours Sepsis New/Unexplained Change in Mental Status Sepsis Action Taken by Nursing 07/13/21 12:05 07/13/21 12:30 Temperature Temperature Source Pulse Rate 68 149 H Pulse Rate [Apical] Pulse Rate from SpO2 Sensor 75 Respiratory Rate 21 32 H Respiratory Effort / Characteristics Blood Pressure 188/110 H Blood Pressure Mean 136 Pulse Oximetry 99 96 Oxygen Delivery Method Room Air Sepsis Recent Fever Within 48 Hours Sepsis New/Unexplained Change in Mental Status Sepsis Action Taken by [facility]way Medications Current Medication List: was personally reviewed by me Laboratory Data Attestation: I reviewed the patient's lab results. Result diagrams: 07/13/21 09:36 07/13/21 09:36 Lab Results 07/13/21 07/13/21 07/13/21 Range/Units 09:36 09:36 09:54 WBC 5.11 (4.8-10.8) K/uL RBC 4.80 (4.7-6.1) M/uL Hgb 13.8 L (14.0-18.0) g/dL Hct 41.7 L (42-52) % MCV 86.9 (80-100) fL MCH 28.8 (25-34) pg MCHC 33.1 (32-36) g/dL RDW Std Deviation 48.3 H (36.4-46.3) fL RDW Coeff of Lisseth 15.0 H (11.5-14.5) % Plt Count 181 (130-400) K/uL MPV 9.0 (7.4-10.4) fL Immature Gran % (Auto) 0.2 % Neut % (Auto) 75.5 % Lymph % (Auto) 14.7 % [place] % (Auto) 8.6 % Eos % (Auto) 0.8 % Baso % (Auto) 0.2 % Neut # (Auto) 3.86 (1.4-6.5) K/uL Lymph # (Auto) 0.75 L (1.2-3.4) K/uL [place] # (Auto) 0.44 (0.11-0.59) K/uL Eos # (Auto) 0.04 (0-0.5) K/uL Baso # (Auto) 0.01 (0-0.2) K/uL Immature Gran # (Auto) 0.01 (0.00-0.02) K/uL Sodium 137 (136-145) mmol/L Potassium 4.8 (3.5-5.1) mmol/L Chloride 100 (98-107) mmol/L Carbon Dioxide 29 (21-32) mmol/L Anion Gap 8.0 (3-11) BUN 46 H (7-18) mg/dl Creatinine 10.20 H* (0.6-1.4) mg/dl Est Cr Clr Drug Dosing 9.3 ml/min Est GFR ( Amer) 5.8 ml/min Est GFR (Non-Af Amer) 5.0 ml/min BUN/Creatinine Ratio 4.5 L (10-20) Glucose 96 (70-99) mg/dl Calcium 8.4 L (8.5-10.1) mg/dl Magnesium 2.5 H (1.8-2.4) mg/dl Total Bilirubin 0.9 (0.2-1) mg/dl AST 34 (15-37) U/L ALT 20 (12-78) U/L Alkaline Phosphatase 79 (45-117) U/L Troponin I < 0.015 (0-0.045) ng/ml Total Protein 7.5 (6.4-8.2) gm/dl Albumin 2.7 L (3.4-5.0) gm/dl Globulin 4.8 H (2.5-4.0) gm/dl Albumin/Globulin Ratio 0.6 L (0.9-2) COVID-19 Eval Order Covid19 at [facility] SARS-CoV-2 (PCR) (Negative) 07/13/21 Range/Units 09:54 WBC (4.8-10.8) K/uL RBC (4.7-6.1) M/uL Hgb (14.0-18.0) g/dL Hct (42-52) % MCV (80-100) fL MCH (25-34) pg MCHC (32-36) g/dL RDW Std Deviation (36.4-46.3) fL RDW Coeff of Lisseth (11.5-14.5) % Plt Count (130-400) K/uL MPV (7.4-10.4) fL Immature Gran % (Auto) % Neut % (Auto) % Lymph % (Auto) % [place] % (Auto) % Eos % (Auto) % Baso % (Auto) % Neut # (Auto) (1.4-6.5) K/uL Lymph # (Auto) (1.2-3.4) K/uL [place] # (Auto) (0.11-0.59) K/uL Eos # (Auto) (0-0.5) K/uL Baso # (Auto) (0-0.2) K/uL Immature Gran # (Auto) (0.00-0.02) K/uL Sodium (136-145) mmol/L Potassium (3.5-5.1) mmol/L Chloride (98-107) mmol/L Carbon Dioxide (21-32) mmol/L Anion Gap (3-11) BUN (7-18) mg/dl Creatinine (0.6-1.4) mg/dl Est Cr Clr Drug Dosing ml/min Est GFR ( Amer) ml/min Est GFR (Non-Af Amer) ml/min BUN/Creatinine Ratio (10-20) Glucose (70-99) mg/dl Calcium (8.5-10.1) mg/dl Magnesium (1.8-2.4) mg/dl Total Bilirubin (0.2-1) mg/dl AST (15-37) U/L ALT (12-78) U/L Alkaline Phosphatase (45-117) U/L Troponin I (0-0.045) ng/ml Total Protein (6.4-8.2) gm/dl Albumin (3.4-5.0) gm/dl Globulin (2.5-4.0) gm/dl Albumin/Globulin Ratio (0.9-2) COVID-19 Eval Order SARS-CoV-2 (PCR) POSITIVE A* (Negative) Administered Medications Discontinued Medications Albuterol (Albut/Ipratrop 3mg/0.5mg Neb 3 Ml Vial) 3 ml NEB NOW STA Stop: 07/13/21 09:40 Last Admin: 07/13/21 09:51 Dose: 3 ml Documented by: [id number] Heparin Sodium (Porcine) (Heparin Sod (Porcine) 1000 Unit/Ml) 2,000 units IV TODAY@1400 ONE Stop: 07/13/21 14:01 Last Admin: 07/13/21 16:09 Dose: Not Given Documented by: [id number] Heparin Sodium (Porcine) (Heparin Sod (Porcine) 1000 Unit/Ml) 1,000 units IV Q1H RUSSELL Stop: 07/13/21 16:01 Last Admin: 07/13/21 16:09 Dose: Not Given Documented by: [id number] Ioversol (Optiray 320 125ml) 120 ml IV ONCE ONE Stop: 07/13/21 11:01 Last Admin: 07/13/21 11:01 Dose: 120 ml Documented by: [id number] Imaging Data Radiologist's Impression: Chest X-Ray 07/13/21 09:39 XR chest 1V portable HISTORY: 55 years-old Male Dyspnea acute shortness of breath COMPARISON: Chest radiograph 11/23/2020 TECHNIQUE: Portable AP view of the chest FINDINGS: Moderate enlargement of the cardiac silhouette. Calcified plaque the thoracic aorta. No pneumothorax. Trace pleural effusions are suggested. Mild right hemidiaphragmatic elevation. Interstitial coarsening. Moderate to extensive bilateral right greater than left peripheral prominent airspace opacities. Unchanged appearance of the right AC joint. No acute fracture. IMPRESSION: Right greater than left bilateral airspace opacities are suggestive of multifocal pneumonia. Peripheral predominant pattern suggests possible viral etiology. ACT 112: Negative or not required by law. The above report was generated using voice recognition software. It may contain grammatical, syntax or spelling errors. Electronically signed by: Garland Angel M.D. 07/13/2021 9:55 AM Chest CTA 07/13/21 10:14 CT angio chest PE protocol INDICATION: [place] ^A9 high creat-scan w/ per kirstin pt on dialysis ^PE. TECHNIQUE: Multidetector row helical CT of the chest was performed. Coronal and sagittal reformations were obtained. Automated dose lowering techniques and/or adjustment according to patient size were utilized for this exam. Comparison: Comparison is made to CT chest 12/13/2019 FINDINGS: Lungs and pleura: Multifocal airspace opacities are seen. There are small bilateral pleural effusions. Heart and pericardium: Cardiomegaly is seen with biatrial enlargement. Reflux of contrast is seen into the inferior vena cava. Vessels: The pulmonary trunk is enlarged measuring 34 mm. No pulmonary emboli are seen. Mediastinum and anatoly: Unremarkable. Chest wall and lower neck: Unremarkable. Abdomen: Unremarkable. Bones: Degenerative changes in the thoracic spine. IMPRESSION: 1. No evidence of pulmonary embolism. 2. Multifocal airspace opacities which likely reflect pneumonia. 3. Small bilateral pleural effusions. ACT 112: Negative or not required by law. Electronically signed by: Jose Hopkins M.D. 07/13/2021 11:19 AM Discharge Plan Visit Data Chief Complaint: Shortness of Breath/Dyspnea ED Provider: Laurent Russell Discharge Problem: SOB (shortness of breath), Volume overload, Pneumonia, COVID-19 Patient Disposition: Admitted As Inpatient Condition: Fair Discharge Instructions Interventions: ED Discharge Assessment Last Done: 07/13/21 14:03 Discharge Problem: Volume overload Qualifiers: Hypervolemia type: unspecified Qualified Code(s): E87.70 - Fluid overload, unspecified Pneumonia Qualifiers: Pneumonia type: due to unspecified organism Laterality: bilateral Lung location: unspecified part of lung Qualified Code(s): J18.9 - Pneumonia, unspecified organism
[2021-07-13 09:48] LABS: Basophils # (auto) 0.01 K/uL (0-0.2); Basophils % (auto) 0.2 %; Eosinophils # (auto) 0.04 K/uL (0-0.5); Eosinophils % (auto) 0.8 %; Hematocrit (blood only) 41.7 % (42-52); Hemoglobin 13.8 g/dL (14.0-18.0); Immature Granulocytes # (auto) 0.01 K/uL (0.00-0.02); Immature Granulocytes % (auto) 0.2 %; Lymphocytes # (auto) 0.75 K/uL (1.2-3.4); Lymphocytes % (auto) 14.7 %; Mean Corpuscular Hemoglobin 28.8 pg (25-34); Mean Corpuscular Hgb Conc 33.1 g/dL (32-36); Mean Corpuscular Volume 86.9 fL (80-100); Monocytes # (auto) 0.44 K/uL (0.11-0.59); Monocytes % (auto) 8.6 %; Neutrophils # (auto) 3.86 K/uL (1.4-6.5); Neutrophils % (auto) 75.5 %; Platelet Count 181 K/uL (130-400); RDW Standard Deviation 48.3 fL (36.4-46.3); White Blood Count 5.11 K/uL (4.8-10.8)
--- NOTE | 2021-07-13 09:57 | XRay Report ---
XR chest 1V portable HISTORY: 55 years-old Male Dyspnea acute shortness of breath COMPARISON: Chest radiograph 11/23/2020 TECHNIQUE: Portable AP view of the chest FINDINGS: Moderate enlargement of the cardiac silhouette. Calcified plaque the thoracic aorta. No pneumothorax. Trace pleural effusions are suggested. Mild right hemidiaphragmatic elevation. Interstitial coarseni ng. Moderate to extensive bilateral right greater than left peripheral prominent airspace opacities. Unchanged appearance of the right AC joint. No acute fracture. IMPRESSION: Right greater than left bilateral airspace opacities are suggestive of multifocal pneumon ia. Peripheral predominant pattern suggests possible viral etiology. ACT 112: Negative or not required by law. The above report was generated using voice recognition software. It may contain grammatical, syntax o r spelling errors. Electronically signed by: Garland Angel M.D. 07/13/2021 9:55 AM
[2021-07-13 10:21] LABS: Alanine Aminotransferase 20 U/L (12-78); Albumin Globulin Ratio 0.6 (0.9-2); Albumin Level 2.7 gm/dl (3.4-5.0); Alkaline Phosphatase 79 U/L (45-117); Aspartate Aminotransferase 34 U/L (15-37); BUN Creatinine Ratio 4.5 (10-20); Bilirubin,Total 0.9 mg/dl (0.2-1); Blood Urea Nitrogen 46 mg/dl (7-18); Calcium 8.4 mg/dl (8.5-10.1); Carbon Dioxide 29 mmol/L (21-32); Chloride 100 mmol/L (98-107); Creatinine Clr Calc Pharmacy 9.3 ml/min; Est GFR (African American) 5.8 ml/min; Globulin 4.8 gm/dl (2.5-4.0); Glucose 96 mg/dl (70-99); Magnesium 2.5 mg/dl (1.8-2.4); Potassium 4.8 mmol/L (3.5-5.1); Sodium 137 mmol/L (136-145); Total Protein 7.5 gm/dl (6.4-8.2); Troponin I < 0.015 ng/ml (0-0.045)
[2021-07-13] MEDS ORDERED: OPTIRAY 320 125ml IV ONE (11:00)
--- NOTE | 2021-07-13 11:20 | CT Scan Report ---
CT angio chest PE protocol INDICATION: [place] ^A9 high creat-scan w/ per feese pt on dialysis ^PE. TECHNIQUE: Multidetector row helical CT of the chest was performed. Coronal and sagittal reformations were obtained. Automated dose lowering techniques and/or adjustment according to patient size were u tilized for this exam. Comparison: Comparison is made to CT chest 12/13/2019 FINDINGS: Lungs and pleura: Multifocal airspace opacities are seen. There are small bilateral pleural effusions . Heart and pericardium: Cardiomegaly is seen with biatrial enlargement. Reflux of contrast is seen int o the inferior vena cava. Vessels: The pulmonary trunk is enlarged measuring 34 mm. No pulmonary emboli are seen. Mediastinum and anatoly: Unremarkable. Chest wall and lower neck: Unremarkable. Abdomen: Unremarkable. Bones: Degenerative changes in the thoracic spine. IMPRESSION: 1. No evidence of pulmonary embolism. 2. Multifocal airspace opacities which likely reflect pneumonia. 3. Small bilateral pleural effusions. ACT 112: Negative or not required by law. Electronically signed by: Jose Hopkins M.D. 07/13/2021 11:19 AM
--- NOTE | 2021-07-13 13:31 | History & Physical Report ---
Date of Service July 13, 2021 Assessment & Plan (1) Pneumonia due to COVID-19 virus: Plan: Patient with diffuse bilateral infiltrates consistent with Covid-19 pneumonia. He is not vaccinated He also could have some volume overload from needing dialysis-receiving dialysis today His pulse ox is 97-99% on room air, but he has cough and dyspnea Symptoms of COVID-19 of been ongoing for at least 2 to 3 weeks-not a candidate for remdesivir due to timing and renal failure, hypoxia -he is not a candidate for dexamethasone as he is not hypoxic -Continue to monitor for worsening -Supportive care with antiemetics, antidiarrheals as needed -Give albuterol HFA or nebs as needed for cough and wheezing as he does report the nebulizer treatment he received in the ER helped him feel better -Supportive care, incentive spirometry (2) Accelerated hypertension: Plan: Secondary to not taking metoprolol this morning as well as need for dialysis Plan for dialysis shortly after admission Continue home metoprolol 25 mg p.o. twice daily (3) Volume overload: Plan: As above, secondary to need for dialysis Plan for dialysis today Follow daily weights, I's and O's (4) ESRD (end stage renal disease) on dialysis: Plan: ESRD secondary to hypertension. Has a history of renal transplant in 2008 which then failed and he restarted hemodialysis again in approximately 2016 Dialyzes Friday at [facility] in [place] Consult nephrology Appreciate inpatient dialysis management Continue Nephrocaps Sucroferric oxyhydroxide, and sodium polystyrene 4 times a week (5) History of kidney transplant: Plan: As above Not currently on antirejection medication (6) Hypertension: Plan: As above, accelerated hypertension Continue home metoprolol (7) Anemia due to chronic kidney disease: Plan: Hemoglobin stable at 13.5 Manage as an outpatient with nephrology (8) Mild aortic valve stenosis: Plan: Mild as of echocardiogram from 2020 Does have significant murmur. No syncope, angina. Consider repeat echocardiogram as an outpatient after recovery from Covid (9) Hyperparathyroidism: Plan: Secondary to ESRD Continue VELPHORO (10) IBS (irritable bowel syndrome): Plan: Has chronic diarrhea Was to be on FODMAPs diet as of GI note from 2020 (11) Hypercholesterolemia: Plan: Continue statin (12) DVT prophylaxis: Plan: Heparin 5000 SQ twice daily Plan: Dispo-admit to medical floor with telemetry, Covid unit Asked case management to start investigating into getting him a chair at the [facility] dialysis unit in [place] in case he is discharged through the weekend so he can get dialysis early next week as an outpatient Full code History of Present Illness Chief Complaint: Shortness of breath, not feeling well Primary Care Provider: NO PCP This patient is a 55-year-old male with a history of ESRD on hemodialysis status post failed renal transplant, HTN, anemia of CKD, secondary hyperparathyroidism, IBS, and obesity, who presents to the ER from his dialysis center after experiencing worsening shortness of breath. He had not even yet started his dialysis treatment. He reports feeling unwell for 2 to 3 weeks now with cough, shortness of breath, nausea, intermittent diarrhea worse than his chronic diarrhea, but denies fevers or chills. He got tested for Covid-19 1 week ago at an urgent care which was negative, but his Covid-19 test was positive in the ER here today. Despite his chest x-ray showing bilateral right greater than left airspace opacities suggestive of multifocal pneumonia, his pulse ox was 97-99% on room air. He was hypertensive but otherwise stable. He will be admitted and undergo urgent dialysis for volume overload, and further observation will be undertaken for his Covid-19 pneumonia. Allergies Allergy/AdvReac Type Severity Reaction Status Date / Time adhesive Allergy Mild SKIN Verified 07/13/21 11:46 IRRITATION morphine AdvReac Intermediate "WACKS ME Verified 07/13/21 11:46 OUT, DO THINGS THAT CAN'T REMEMBER" aspirin AdvReac Mild NOSE BLEED Verified 07/13/21 11:46 Home Medications Medication Instructions Recorded Confirmed Type atorvastatin 40 mg tablet (Lipitor) 40 mg PO QAM 07/13/21 07/13/21 History sodium polystyrene sulfonate 15 g PO 4XWK 07/13/21 07/13/21 History sucroferric oxyhydroxide 500 mg 1,000 mg PO TIDM 07/13/21 07/13/21 History chewable tablet (Velphoro) vitamin B complex-vitamin C-folic 1 tab PO QAM 07/13/21 07/13/21 History acid 0.8 mg tablet (Nephro-Monserrat) Past Med/Surg History Medical History Anemia due to chronic kidney disease Chronic back pain Diabetes mellitus diet controlled Esophageal reflux controlled ESRD (end stage renal disease) on dialysis Diaylsis clinic [facility]/- History of blood transfusion 4 years ago (in setting of plasmaphoresis for kidney issues) Hx of malignant skin melanoma Hypercholesterolemia Hyperparathyroidism Hypertension Kidney transplant failure Mild aortic valve stenosis Per 12/06/19 ECHO Obesity Osteoarthritis Surgical History H/O radical excision of skin lesion back r/t melanoma History of bowel resection r/t diverticulitis History of cataract surgery bilateral History of colonoscopy History of colostomy History of colostomy reversal ~2006 History of esophagogastroduodenoscopy (EGD) 08/20/19: MAC sedation at [facility] History of kidney transplant ~2008 S/P arteriovenous (AV) fistula creation left arm Family History Mother Family history of diabetes mellitus Father FHx: myocardial infarction, Onset Age: 69 Other No family history of adverse response to anesthesia Denies family history of Crohn's disease Colorectal cancer Ulcerative colitis Social History (Updated 07/13/21 @ 13:43 by Jeaneth Jones MD) Smoking Status: Never smoker Second Hand Exposure: Yes; Hx Alcohol Use: Yes Alcohol type: beer and wine Alcohol Intake Frequency: Monthly or Less Hx Substance Use: No Preferred Language: Mongolian Communication Ability: Effective 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 He does make a small amount of urine. No new joint pains but does have chronic arthritis pains "all over" No rashes Physical Exam Constitutional: WD/WN, vitals as above + obese Eyes: PERRL, conjunctivae normal, anicteric sclerae ENMT: external ear and nose normal, oropharynx normal Neck: trachea midline, no thyromegaly Respiratory: normal respiratory effort and + cough Auscultation: + crackles (bibasilar); no wheezes Cardiovascular: Rate/Rhythm: regular rate and regular rhythm Heart Sounds: + murmur (2/6 AMBROSIO at RUSB) Extremities: + AV fistula (LUE); no edema Chest (Breasts): Chest: normal inspection of chest Gastrointestinal (Abdomen): normal bowel sounds, soft, nontender, no hepatosplenomegaly Musculoskeletal: Extremities: extremities normal to inspection; no cyanosis and no clubbing Skin: no rashes, warm and dry Neurologic: moves all extremities and awake; no focal motor deficits Psychiatric: A+Ox3, euthymic affect Lymphatic: no lymphedema Results & Data Results & Data ([facility]) Vital Signs (Past 12 Hours) Vital Signs Temp Pulse Pulse Resp BP Pulse Ox 07/13/21 12:05 68 21 188/110 H 99 07/13/21 09:52 126 H 17 96 07/13/21 09:40 36.9 C 120 H 16 173/118 H 98 Laboratory Results 07/13/21 07/13/21 07/13/21 Range/Units 09:54 09:54 09:36 WBC (4.8-10.8) K/uL RBC (4.7-6.1) M/uL Hgb (14.0-18.0) g/dL Hct (42-52) % MCV (80-100) fL MCH (25-34) pg MCHC (32-36) g/dL RDW Std Deviation (36.4-46.3) fL RDW Coeff of Lisseth (11.5-14.5) % Plt Count (130-400) K/uL MPV (7.4-10.4) fL Immature Gran % (Auto) % Neut % (Auto) % Lymph % (Auto) % Dickenson % (Auto) % Eos % (Auto) % Baso % (Auto) % Neut # (Auto) (1.4-6.5) K/uL Lymph # (Auto) (1.2-3.4) K/uL Dickenson # (Auto) (0.11-0.59) K/uL Eos # (Auto) (0-0.5) K/uL Baso # (Auto) (0-0.2) K/uL Immature Gran # (Auto) (0.00-0.02) K/uL Sodium 137 (136-145) mmol/L Potassium 4.8 (3.5-5.1) mmol/L Chloride 100 (98-107) mmol/L Carbon Dioxide 29 (21-32) mmol/L Anion Gap 8.0 (3-11) BUN 46 H (7-18) mg/dl Creatinine 10.20 H* (0.6-1.4) mg/dl Est Cr Clr Drug Dosing 9.3 ml/min Est GFR ( Amer) 5.8 ml/min Est GFR (Non-Af Amer) 5.0 ml/min BUN/Creatinine Ratio 4.5 L (10-20) Glucose 96 (70-99) mg/dl Calcium 8.4 L (8.5-10.1) mg/dl Magnesium 2.5 H (1.8-2.4) mg/dl Total Bilirubin 0.9 (0.2-1) mg/dl AST 34 (15-37) U/L ALT 20 (12-78) U/L Alkaline Phosphatase 79 (45-117) U/L Troponin I < 0.015 (0-0.045) ng/ml Total Protein 7.5 (6.4-8.2) gm/dl Albumin 2.7 L (3.4-5.0) gm/dl Globulin 4.8 H (2.5-4.0) gm/dl Albumin/Globulin Ratio 0.6 L (0.9-2) COVID-19 Eval Order Covid19 at [facility] SARS-CoV-2 (PCR) POSITIVE A* (Negative) 07/13/21 Range/Units 09:36 WBC 5.11 (4.8-10.8) K/uL RBC 4.80 (4.7-6.1) M/uL Hgb 13.8 L (14.0-18.0) g/dL Hct 41.7 L (42-52) % MCV 86.9 (80-100) fL MCH 28.8 (25-34) pg MCHC 33.1 (32-36) g/dL RDW Std Deviation 48.3 H (36.4-46.3) fL RDW Coeff of Lisseth 15.0 H (11.5-14.5) % Plt Count 181 (130-400) K/uL MPV 9.0 (7.4-10.4) fL Immature Gran % (Auto) 0.2 % Neut % (Auto) 75.5 % Lymph % (Auto) 14.7 % Dickenson % (Auto) 8.6 % Eos % (Auto) 0.8 % Baso % (Auto) 0.2 % Neut # (Auto) 3.86 (1.4-6.5) K/uL Lymph # (Auto) 0.75 L (1.2-3.4) K/uL Dickenson # (Auto) 0.44 (0.11-0.59) K/uL Eos # (Auto) 0.04 (0-0.5) K/uL Baso # (Auto) 0.01 (0-0.2) K/uL Immature Gran # (Auto) 0.01 (0.00-0.02) K/uL Sodium (136-145) mmol/L Potassium (3.5-5.1) mmol/L Chloride (98-107) mmol/L Carbon Dioxide (21-32) mmol/L Anion Gap (3-11) BUN (7-18) mg/dl Creatinine (0.6-1.4) mg/dl Est Cr Clr Drug Dosing ml/min Est GFR ( Amer) ml/min Est GFR (Non-Af Amer) ml/min BUN/Creatinine Ratio (10-20) Glucose (70-99) mg/dl Calcium (8.5-10.1) mg/dl Magnesium (1.8-2.4) mg/dl Total Bilirubin (0.2-1) mg/dl AST (15-37) U/L ALT (12-78) U/L Alkaline Phosphatase (45-117) U/L Troponin I (0-0.045) ng/ml Total Protein (6.4-8.2) gm/dl Albumin (3.4-5.0) gm/dl Globulin (2.5-4.0) gm/dl Albumin/Globulin Ratio (0.9-2) COVID-19 Eval Order SARS-CoV-2 (PCR) (Negative) Diagnostic Findings Chest x-ray image personally reviewed by me and agree with the following report: Chest X-Ray 07/13/21 09:39 XR chest 1V portable HISTORY: 55 years-old Male Dyspnea acute shortness of breath COMPARISON: Chest radiograph 11/23/2020 TECHNIQUE: Portable AP view of the chest FINDINGS: Moderate enlargement of the cardiac silhouette. Calcified plaque the thoracic aorta. No pneumothorax. Trace pleural effusions are suggested. Mild right hemidiaphragmatic elevation. Interstitial coarsening. Moderate to extensive bilateral right greater than left peripheral prominent airspace opacities. Unchanged appearance of the right AC joint. No acute fracture. IMPRESSION: Right greater than left bilateral airspace opacities are suggestive of multifocal pneumonia. Peripheral predominant pattern suggests possible viral etiology. ACT 112: Negative or not required by law. The above report was generated using voice recognition software. It may contain grammatical, syntax or spelling errors. Electronically signed by: Garland Angel M.D. 07/13/2021 9:55 AM Chest CTA 07/13/21 10:14 CT angio chest PE protocol INDICATION: [place] ^A9 high creat-scan w/ per feese pt on dialysis ^PE. TECHNIQUE: Multidetector row helical CT of the chest was performed. Coronal and sagittal reformations were obtained. Automated dose lowering techniques and/or adjustment according to patient size were utilized for this exam. Comparison: Comparison is made to CT chest 12/13/2019 FINDINGS: Lungs and pleura: Multifocal airspace opacities are seen. There are small bilateral pleural effusions. Heart and pericardium: Cardiomegaly is seen with biatrial enlargement. Reflux of contrast is seen into the inferior vena cava. Vessels: The pulmonary trunk is enlarged measuring 34 mm. No pulmonary emboli are seen. Mediastinum and anatoly: Unremarkable. Chest wall and lower neck: Unremarkable. Abdomen: Unremarkable. Bones: Degenerative changes in the thoracic spine. IMPRESSION: 1. No evidence of pulmonary embolism. 2. Multifocal airspace opacities which likely reflect pneumonia. 3. Small bilateral pleural effusions. ACT 112: Negative or not required by law. Electronically signed by: Jose Hopkins M.D. 07/13/2021 11:19 AM ECG Additional Comments: ECG on 07/13/2021 at 930 with sinus rhythm, rate 70, first- degree AV block, no ischemic changes, QTC 453 Code Status & VTE Plan Code Status Full code VTE Prophylaxis Plan VTE Prophylaxis will be ordered: Yes PG Care Time/CCT Total # of Minutes Spent Total Time Spent with Patient: Total time spent is greater than 50% in coordination of care (as documented) at patient's floor/unit and/or counseling patient: Coding Level of Care Code 39553 Initial Inpt Care Lvl 3 Diagnoses IBS (irritable bowel syndrome) K58.9 History of kidney transplant Z94.0 ESRD (end stage renal disease) on dialysis N18.6; Z99.2 Accelerated hypertension I10 DVT prophylaxis Z29.9 Anemia due to chronic kidney disease N18.9; D63.1 Hypercholesterolemia E78.00 Hyperparathyroidism E21.3 Hypertension I10 Mild aortic valve stenosis I35.0 Pneumonia due to COVID-19 virus U07.1; J12.82 Volume overload E87.70
[2021-07-13] MEDS ORDERED: SODIUM CHLORIDE 0.9% 1000ML 1,000 ML IV PRN (13:41)
[2021-07-13] MEDS ORDERED: HEPARIN SOD (PORCINE) 1000 UNIT/ML IV ONE (14:00)
[2021-07-13] MEDS: HEPARIN SOD (PORCINE) 1000 UNIT/ML IV SCH ×2 (16:09→17:16)
[2021-07-13] MEDS ORDERED: ALBUTEROL 0.083% NEBU SOLN 3 ML VIAL NEB PRN (16:19)
[2021-07-13] MEDS ORDERED: ACETAMINOPHEN 325 MG TAB PO PRN (16:19)
[2021-07-13] MEDS ORDERED: ALBUTEROL HFA 8 GM INHALER INH PRN (16:19)
[2021-07-13] MEDS ORDERED: ONDANSETRON INJ 2 MG/ML 2 ML VIAL IV PRN (16:19)
[2021-07-13] MEDS ORDERED: POLYETHYLENE (MIRALAX) 17 GM PACK PO PRN (16:19)
--- NOTE | 2021-07-13 17:46 | Nephrology Consultation ---
Date of Consultation July 13, 2021 Assessment & Plan (1) ESRD (end stage renal disease) on dialysis: Emergent HD coordinated today. Mr. Levy is tolerating HD well. AVF functioning well. Clearances are at goal. Medications appropriately dosed for kidney dysfunction. (2) Volume overload: Tolerating UF well. Low sodium diet with 1 L daily fluid restriction. (3) Pneumonia due to COVID-19 virus: CXR and CT reviewed. Plan of care discussed with Dr. Jones. Mr. Levy will need arrangements for HD at the [facility] dialysis unit for COVID isolation post discharge. (4) Encounter for hemodialysis for ESRD: (5) Hyperparathyroidism: Velphoro switched to Renagel while inpatient. Low PO4 diet. (6) Anemia due to chronic kidney disease: H/H acceptable. No need for SHANNON therapy at this time. History of Present Illness Reason for Consultation: ESRD on HD Requesting Physician: Jeaneth Jones MD Attending Physician: Jeaneth Jones MD History of Present Illness Mr. Marcos Levy is a 55-year-old male with ESRD on HD. He dialyzes MFW at [facility] under the care of Dr. Awad. Mr. Levy was sent to the ER at [facility] from dialysis today for evaluation of shortness of breath. In the ER, COVID testing was positive. I was contacted by the ER physician. CXR demonstrating multifocal airspace opacities. CT of the chest reviewed. I discussed the plan of care with the admitting hospitalist today. HD orders were discussed and coordinated with the dialysis nurse. The patient was seen and evaluated during hemodialysis this evening. He was tolerating HD well. UF goal 3-4 L as tolerated. Mr. Levy reports 2-3 weeks of cough, shortness of breath, nausea, intermittent diarrhea worse than his chronic diarrhea, but denies fevers or chills. He has not been vaccinated by COVID. He got tested for COVID 1 week ago at an urgent care which was negative. Mr. Levy had CKD attributed to chronic glomerulonephritis. He had followed with Dr. Hayward in the CKD clinic since ~1999. He started hemodialysis in 2004. In 2007, he received a donor transplant at the [facility]. In January 2016, he presented presented with allograft failure in the setting of non adherence to medications. He never regained his renal function and was started back on maintenance dialysis. He has been doing fairly well on dialysis and is currently dialyzed at the [facility] dialysis unit MWF times a week. In February 2007, he developed a perforated diverticulum with abscess formation. He underwent a [place] procedure with colostomy reversal at a later date. Medical history is also notable for hypertension, secondary hyperparathyroidism, and hyperphosphatemia. Allergies Allergy/AdvReac Type Severity Reaction Status Date / Time adhesive Allergy Mild SKIN Verified 07/13/21 11:46 IRRITATION morphine AdvReac Intermediate "WACKS ME Verified 07/13/21 11:46 OUT, DO THINGS THAT CAN'T REMEMBER" aspirin AdvReac Mild NOSE BLEED Verified 07/13/21 11:46 Home Medications Medication Instructions Recorded Confirmed Type atorvastatin 40 mg tablet (Lipitor) 40 mg PO QAM 07/13/21 07/13/21 History sodium polystyrene sulfonate 15 g PO 4XWK 07/13/21 07/13/21 History sucroferric oxyhydroxide 500 mg 1,000 mg PO TIDM 07/13/21 07/13/21 History chewable tablet (Velphoro) vitamin B complex-vitamin C-folic 1 tab PO QAM 07/13/21 07/13/21 History acid 0.8 mg tablet (Nephro-Monserrat) Patient History Medical History Anemia due to chronic kidney disease Chronic back pain Diabetes mellitus diet controlled Esophageal reflux controlled ESRD (end stage renal disease) on dialysis [facility] [place]/-W- History of blood transfusion 4 years ago (in setting of plasmaphoresis for kidney issues) Hx of malignant skin melanoma Hypercholesterolemia Hyperparathyroidism Hypertension Kidney transplant failure Mild aortic valve stenosis Per 12/06/19 ECHO Obesity Osteoarthritis Surgical History H/O radical excision of skin lesion back r/t melanoma History of bowel resection r/t diverticulitis History of cataract surgery bilateral History of colonoscopy History of colostomy History of colostomy reversal ~2006 History of esophagogastroduodenoscopy (EGD) 08/20/19: MAC sedation at [facility] History of kidney transplant ~2008 S/P arteriovenous (AV) fistula creation left arm Family History Mother Family history of diabetes mellitus Father FHx: myocardial infarction, Onset Age: 69 Other No family history of adverse response to anesthesia Denies family history of Crohn's disease Colorectal cancer Ulcerative colitis Social History Smoking Status: Never smoker Second Hand Exposure: No; Hx Alcohol Use: Yes Alcohol type: beer and wine Alcohol Intake Frequency: Monthly or Less Hx Substance Use: No Preferred Language: Kosovan Communication Ability: Effective 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 Beliefs That Will Affect Care: None Current Living Situation: Alone Feels Safe at Home: Yes Assistive Devices: Glasses Review of Systems Constitutional: no fever, no chills and no problem reported Eyes: no problem reported Ear, Nose, Mouth, Throat: no problem reported Respiratory: + cough, + chest congestion and + dyspnea on exertion Cardiovascular: no chest pain, no palpitations, no lightheadedness and no edema Gastrointestinal: no problem reported Musculoskeletal: no problem reported Integumentary: no problem reported Neurologic: no problem reported Psychiatric: no problem reported Endocrine: no problem reported Hematologic / Lymphatic: no problem reported Physical Exam Constitutional: well developed; no acute distress Eyes: + scleral abnormality (injected) and + anicteric sclerae ENMT: Mouth: no oral mucosal abnormality and oral mucous membranes not dry Neck: normal visual inspection and trachea midline Respiratory: normal respiratory effort Auscultation: + rhonchi Cardiovascular: Rate/Rhythm: regular rate Heart Sounds: normal S1 and normal S2 Extremities: + edema and + AV fistula Musculoskeletal: Extremities: no cyanosis and no clubbing Skin: normal turgor; no lesions Neurologic: Motor/Sensory: no tremor and no asterixis Psychiatric: Orientation: alert and oriented x 3 Results & Data ([facility]) Vital Signs (Past 12 Hours) Vital Signs Temp Pulse Pulse Pulse Resp BP BP 07/13/21 17:40 70 155/105 H 07/13/21 17:20 77 161/100 H 07/13/21 17:00 71 177/111 H 07/13/21 16:40 69 180/109 H 07/13/21 16:20 71 178/99 H 07/13/21 16:00 69 166/107 H 07/13/21 15:40 76 185/121 H 07/13/21 15:20 69 185/121 H 07/13/21 15:01 66 193/112 H 07/13/21 15:00 37.4 C 72 22 204/113 H 07/13/21 14:47 36.4 C L 70 07/13/21 13:30 30 H 07/13/21 13:00 138 H 27 H 192/106 H 07/13/21 12:30 149 H 32 H 07/13/21 12:05 68 21 188/110 H 07/13/21 12:00 129 H 24 07/13/21 11:30 146 H 24 07/13/21 11:00 89 21 07/13/21 10:30 137 H 21 07/13/21 10:00 112 H 07/13/21 09:52 126 H 17 07/13/21 09:40 36.9 C 120 H 16 173/118 H 07/13/21 09:32 95 H 13 Pulse Ox 07/13/21 17:40 07/13/21 17:20 07/13/21 17:00 07/13/21 16:40 07/13/21 16:20 07/13/21 16:00 07/13/21 15:40 07/13/21 15:20 07/13/21 15:01 07/13/21 15:00 96 07/13/21 14:47 07/13/21 13:30 96 07/13/21 13:00 96 07/13/21 12:30 96 07/13/21 12:05 99 07/13/21 12:00 97 07/13/21 11:30 95 07/13/21 11:00 93 07/13/21 10:30 93 07/13/21 10:00 94 07/13/21 09:52 96 07/13/21 09:40 98 07/13/21 09:32 99 Laboratory Results Laboratory Results - last 24 hr 07/13/21 07/13/21 07/13/21 09:36 09:36 09:54 WBC 5.11 RBC 4.80 Hgb 13.8 L Hct 41.7 L MCV 86.9 MCH 28.8 MCHC 33.1 RDW Std Deviation 48.3 H RDW Coeff of Lisseth 15.0 H Plt Count 181 MPV 9.0 Immature Gran % (Auto) 0.2 Neut % (Auto) 75.5 Lymph % (Auto) 14.7 Glades % (Auto) 8.6 Eos % (Auto) 0.8 Baso % (Auto) 0.2 Neut # (Auto) 3.86 Lymph # (Auto) 0.75 L Glades # (Auto) 0.44 Eos # (Auto) 0.04 Baso # (Auto) 0.01 Immature Gran # (Auto) 0.01 Sodium 137 Potassium 4.8 Chloride 100 Carbon Dioxide 29 Anion Gap 8.0 BUN 46 H Creatinine 10.20 H* Est Cr Clr Drug Dosing 9.3 Est GFR ( Amer) 5.8 Est GFR (Non-Af Amer) 5.0 BUN/Creatinine Ratio 4.5 L Glucose 96 Calcium 8.4 L Magnesium 2.5 H Total Bilirubin 0.9 AST 34 ALT 20 Alkaline Phosphatase 79 Troponin I < 0.015 Total Protein 7.5 Albumin 2.7 L Globulin 4.8 H Albumin/Globulin Ratio 0.6 L COVID-19 Eval Order Covid19 at [facility] SARS-CoV-2 (PCR) 07/13/21 09:54 WBC RBC Hgb Hct MCV MCH MCHC RDW Std Deviation RDW Coeff of Lisseth Plt Count MPV Immature Gran % (Auto) Neut % (Auto) Lymph % (Auto) Glades % (Auto) Eos % (Auto) Baso % (Auto) Neut # (Auto) Lymph # (Auto) Glades # (Auto) Eos # (Auto) Baso # (Auto) Immature Gran # (Auto) Sodium Potassium Chloride Carbon Dioxide Anion Gap BUN Creatinine Est Cr Clr Drug Dosing Est GFR ( Amer) Est GFR (Non-Af Amer) BUN/Creatinine Ratio Glucose Calcium Magnesium Total Bilirubin AST ALT Alkaline Phosphatase Troponin I Total Protein Albumin Globulin Albumin/Globulin Ratio COVID-19 Eval Order SARS-CoV-2 (PCR) POSITIVE A* PG Care Time/CCT Total # of Minutes Spent Total Time Spent with Patient: Total time spent is greater than 50% in coordination of care (as documented) at patient's floor/unit and/or counseling patient: Coding Level of Care Code 55978 Inpt Consult Level 5 Diagnoses Volume overload E87.70 Hypervolemia type: unspecified Pneumonia due to COVID-19 virus U07.1; J12.82 ESRD (end stage renal disease) on dialysis N18.6; Z99.2 Encounter for hemodialysis for ESRD N18.6; Z99.2 Hyperparathyroidism E21.3 Anemia due to chronic kidney disease N18.9; D63.1 (1) Volume overload Hypervolemia type: unspecified Qualified Code(s): E87.70 - Fluid overload, unspecified
[2021-07-13] MEDS: SEVELAMER HCL 800 MG TABLET PO SCH (18:46)
[2021-07-13] MEDS: METOPROLOL TARTRATE 25 MG TAB PO SCH (20:50)
[2021-07-13] MEDS: HEPARIN SOD 5,000 UNIT/0.5 ML VIAL SQ SCH (20:51)
--- NOTE | 2021-07-14 06:58 | Electrocardiogram Report ---
Test Reason : Blood Pressure : / mmHG Vent. Rate : 070 BPM Atrial Rate : 070 BPM P-R Int : 244 ms QRS Dur : 090 ms QT Int : 420 ms P-R-T Axes : 040 017 076 degrees QTc Int : 453 ms Poor data quality, interpretation may be adversely affected Sinus rhythm with 1st degree A-V block Possible Left atrial enlargement Low voltage QRS Borderline ECG When compared with ECG of 23-NOV-2020 18:36, No significant change was found Confirmed by Je Neri ([id number]) on 07/14/2021 6:58:13 AM Referred By: Confirmed By:Gabino Neri
[2021-07-14 07:25] LABS: Basophils # (auto) 0.01 K/uL (0-0.2); Basophils % (auto) 0.2 %; Eosinophils % (auto) 2.5 %; Hematocrit (blood only) 41.5 % (42-52); Hemoglobin 13.4 g/dL (14.0-18.0); Immature Granulocytes # (auto) 0.01 K/uL (0.00-0.02); Immature Granulocytes % (auto) 0.2 %; Lymphocytes % (auto) 14.9 %; Mean Corpuscular Hemoglobin 28.5 pg (25-34); Mean Corpuscular Hgb Conc 32.3 g/dL (32-36); Mean Corpuscular Volume 88.1 fL (80-100); Monocytes # (auto) 0.54 K/uL (0.11-0.59); Monocytes % (auto) 13.4 %; Neutrophils # (auto) 2.77 K/uL (1.4-6.5); Neutrophils % (auto) 68.8 %; Platelet Count 200 K/uL (130-400); RDW Standard Deviation 48.6 fL (36.4-46.3); Red Blood Count 4.71 M/uL (4.7-6.1); White Blood Count 4.03 K/uL (4.8-10.8)
[2021-07-14 07:55] LABS: Albumin Globulin Ratio 0.6 (0.9-2); Albumin Level 2.6 gm/dl (3.4-5.0); BUN Creatinine Ratio 4.1 (10-20); Bilirubin,Total 0.8 mg/dl (0.2-1); C Reactive Protein 5.47 mg/dl (0-0.29); Calcium 8.7 mg/dl (8.5-10.1); Creatinine Clr Calc Pharmacy 11.2 ml/min; Est GFR (African American) 7.4 ml/min; Est GFR (Non-African American) 6.4 ml/min; Globulin 4.5 gm/dl (2.5-4.0); Magnesium 2.5 mg/dl (1.8-2.4); Potassium 4.6 mmol/L (3.5-5.1); Total Protein 7.1 gm/dl (6.4-8.2)
--- NOTE | 2021-07-14 09:04 | Hospitalist Progress Note ---
Date of Service July 14, 2021 Assessment & Plan (1) Pneumonia due to COVID-19 virus: Plan: Patient with diffuse bilateral infiltrates consistent with Covid-19 pneumonia. He is not vaccinated also influenced by volume overload from needing dialysis-receiving dialysis prior to admission His pulse ox is 97-99% on room air, but he has cough and dyspnea Symptoms of COVID-19 of been ongoing for at least 2 to 3 weeks-not a candidate for remdesivir due to timing and renal failure, hypoxia -he is not a candidate for dexamethasone as he is not hypoxic -High risk given time from illness, and comorbid contidiion of insulin requiring diabetes, renal failure and obesity, Continue to monitor for worsening -Supportive care with antiemetics, antidiarrheals as needed -Give albuterol HFA or nebs as needed for cough and wheezing as he does report the nebulizer treatment he received in the ER helped him feel better -Supportive care, incentive spirometry (2) Accelerated hypertension: Plan: Secondary to not taking metoprolol this morning as well as need for dialysis dialysis 07/13/21 Continue home metoprolol 25 mg p.o. twice daily, heart rate is controlled will try to increase if not will use other agent that does not affect heart rate, consider noemi i given esrd (3) Volume overload: Plan: As above, secondary to need for dialysis Plan for dialysis today Follow daily weights, I's and O's (4) ESRD (end stage renal disease) on dialysis: Plan: ESRD secondary to hypertension. Has a history of renal transplant in 2008 which then failed and he restarted hemodialysis again in approximately 2016 Dialyzes Friday at [facility] in [place] Consult nephrology Appreciate inpatient dialysis management Continue Nephrocaps Sucroferric oxyhydroxide, and sodium polystyrene 4 times a week (5) History of kidney transplant: Plan: As above, rejected now back on dialysis Not currently on antirejection medication (6) Anemia due to chronic kidney disease: Plan: Hemoglobin stable at 13.5 Manage as an outpatient with nephrology (7) Mild aortic valve stenosis: Plan: Mild as of echocardiogram from 2019 Does have significant murmur. No syncope, angina. Consider repeat echocardiogram as an outpatient after recovery from Covid (8) Hyperparathyroidism: Plan: Secondary to ESRD Continue VELPHORO (9) IBS (irritable bowel syndrome): Plan: Has chronic diarrhea Was to be on FODMAPs diet as of GI note from 2020 (10) Hypercholesterolemia: Plan: Continue statin (11) DVT prophylaxis: Plan: Heparin 5000 SQ twice daily Plan: Dispo-admit to medical floor with telemetry, [facility] unit Asked case management to start investigating into getting him a chair at the [facility] dialysis unit in [place] Full code Admission and Anticipated Discharge Date Admission Date: July 13, 2021 Subjective pt state he feels poorly, exterme fatigue, no appetite, altered taste some diarrhea, non productive cough. Review of Systems Review of Systems: Mild to moderate distress and fatigue no headache, no visual changes no speech or swallowing issues no chest pain, pressure or palpitations Complains of subjective shortness of breath, nonproductive cough no wheezes no abdominal pain, nausea or vomiting, c/o diarrhea no dysuria, hematuria or frequency no focal joint pain or swelling no back pain, CVA tenderness or radicular pain no bruising, bleeding or rashes no focal signs of weakness or numbness or altered sensation no complaints of anxiety or depression.. Physical Exam Physical Exam: The patient appeared well nourished and normally developed. he did appear objectively worn out Vital signs as documented. Head exam is normocephalic atraumatic Neck is without JVD, thyromegaly, or carotid bruits. Lungs are some fine basilar rales Cardiac exam, Rhythm is regular.. No murmurs, rubs or gallops. Abdominal exam reveals normal bowel sounds, soft non tender, no masses Extremities are nonedematous and both pedal pulses are present Neurologic exam is alert and oriented, no focal loss of strength or sensation Skin is without bruises or rashes, thrill to AV Fistulae in left bicep area Psychologically is without concerns for anxiety or depression Results & Data Results & Data ([facility]) Vital Signs (Past 12 Hours) Vital Signs Temp Pulse Pulse Resp BP Pulse Ox 07/14/21 06:29 98.1 F 64 17 167/94 H 94 07/14/21 04:35 98.1 F 65 16 160/96 H 97 07/13/21 23:52 64 18 94 07/13/21 23:31 98.2 F 155/93 H PG Care Time/CCT Total # of Minutes Spent Total Time Spent with Patient: Total time spent is greater than 50% in coordination of care (as documented) at patient's floor/unit and/or counseling patient: Coding Level of Care Code 51585 Subseq Hosp Care Lvl 2 Diagnoses Pneumonia due to COVID-19 virus U07.1; J12.82 Accelerated hypertension I10 Volume overload E87.70 ESRD (end stage renal disease) on dialysis N18.6; Z99.2 History of kidney transplant Z94.0 Anemia due to chronic kidney disease N18.9; D63.1 Mild aortic valve stenosis I35.0 Hyperparathyroidism E21.3 IBS (irritable bowel syndrome) K58.9 Hypercholesterolemia E78.00 DVT prophylaxis Z29.9
[2021-07-14] MEDS: SEVELAMER HCL 800 MG TABLET PO SCH ×3 (09:27→18:11)
[2021-07-14] MEDS: NEPHROCAPS PO SCH (09:28)
[2021-07-14] MEDS: METOPROLOL TARTRATE 25 MG TAB PO SCH (09:28)
[2021-07-14] MEDS: HEPARIN SOD 5,000 UNIT/0.5 ML VIAL SQ SCH ×2 (09:28→21:05)
[2021-07-14] MEDS: SODIUM POLYSTYRENE SULFONATE 15G/60ML SUSP PO SCH (09:28)
[2021-07-14] MEDS: ATORVASTATIN 40 MG TAB PO SCH (09:28)
--- NOTE | 2021-07-14 10:58 | Nephrology Progress Note ---
Date of Service July 14, 2021 Assessment & Plan (1) ESRD (end stage renal disease) on dialysis: Plan: * HD provided yesterday. Patient dialyzed for 3 hours w/ 3.1 L UF * No acute indication for HD today. Will plan next HD for Friday * Outpatient HD: [facility] [place] MWF 4 hrs 2K 2Ca 1Mg Na 135 HCO3 35 F-180NR EDW 98.5kg * Mr. Levy will need to dialyze at [facility] COVID isolation clinic for 2 weeks following hospital discharge (2) Volume overload: Plan: * Resolved following UF (3) Pneumonia due to COVID-19 virus: Plan: * Continue supportive care Admission and Anticipated Discharge Date Admission Date: July 13, 2021 Subjective Mr. Levy is currently on respiratory isolation due to COVID pneumonia. He was interviewed by telephone this am and plan of care discussed w/ hospitalist service. Mr. Levy was dialyzed yesterday for 3 hours w/ 3.1L UF. He reports that his breathing is stable. He currently denies fever or angina. He does still have mild MARTE Review of Systems Constitutional: + weakness; no fever Eyes: no problem reported Ear, Nose, Mouth, Throat: no problem reported Respiratory: + dyspnea on exertion; no cough Cardiovascular: no chest pain, no palpitations and no edema Gastrointestinal: no abdominal pain, no nausea, no vomiting and no diarrhea/loose stools Genitourinary: no dysuria, no urinary hesitancy or no hematuria Musculoskeletal: no back pain Integumentary: no rash Neurologic: no falls, no dizziness and no confusion Results & Data ([facility]) Vital Signs (Past 12 Hours) Vital Signs Temp Pulse Pulse Resp BP Pulse Ox 07/14/21 06:29 36.7 C 64 17 167/94 H 94 07/14/21 04:35 36.7 C 65 16 160/96 H 97 07/13/21 23:52 64 18 94 07/13/21 23:31 36.8 C 155/93 H Laboratory Results Laboratory Tests 07/14/21 07/14/21 06:50 06:50 WBC 4.03 L Hgb 13.4 L Hct 41.5 L Plt Count 200 Sodium 136 Potassium 4.6 Chloride 100 Carbon Dioxide 29 BUN 34 H Creatinine 8.37 H* D Glucose 90 Magnesium 2.5 H Albumin 2.6 L Diagnostic Findings 07/13/21 CXR: Right greater than left bilateral airspace opacities are suggestive of multifocal pneumonia. Peripheral predominant pattern suggests possible viral etiology. PG Care Time/CCT Total # of Minutes Spent Total Time Spent with Patient: Total time spent is greater than 50% in coor dination of care (as documented) at patient's floor/unit and/or counseling patient: Coding Level of Care Code 72115 Subseq Hosp Care Lvl 3 Diagnoses ESRD (end stage renal disease) on dialysis N18.6; Z99.2 Volume overload E87.70 Hypervolemia type: unspecified Pneumonia due to COVID-19 virus U07.1; J12.82 (1) Volume overload Hypervolemia type: unspecified Qualified Code(s): E87.70 - Fluid overload, unspecified
[2021-07-14] MEDS: METOPROLOL TARTRATE 50 MG TAB PO SCH (21:05)
[2021-07-15] MEDS: SODIUM POLYSTYRENE SULFONATE 15G/60ML SUSP PO SCH (08:34)
[2021-07-15] MEDS: HEPARIN SOD 5,000 UNIT/0.5 ML VIAL SQ SCH ×2 (08:34→20:27)
[2021-07-15] MEDS: ATORVASTATIN 40 MG TAB PO SCH (08:34)
[2021-07-15] MEDS: METOPROLOL TARTRATE 50 MG TAB PO SCH ×2 (08:34→20:26)
[2021-07-15] MEDS: NEPHROCAPS PO SCH (08:34)
[2021-07-15] MEDS: SEVELAMER HCL 800 MG TABLET PO SCH ×3 (08:35→17:44)
[2021-07-15] MEDS: dexAMETHasone 6 MG in SYRINGE 0 ML IV SCH (08:48)
--- NOTE | 2021-07-15 09:56 | Nephrology Progress Note ---
Date of Service July 15, 2021 Assessment & Plan (1) ESRD (end stage renal disease) on dialysis: Plan: * No acute indication for HD today. Will plan next HD for Friday * [facility] M[facility] 4 hrs 2K 2Ca 1Mg Na 135 HCO3 35 F-180NR EDW 98.5kg * Mr. Levy will need to dialyze at [facility] COVID isolation clinic for 2 weeks following hospital discharge (2) Volume overload: Plan: * Resolved following UF (3) Hypertension: Plan: * Blood pressure controlled. Continue current medical regimen (4) Pneumonia due to COVID-19 virus: Plan: * Continue supportive care Admission and Anticipated Discharge Date Admission Date: July 13, 2021 Subjective Mr. Levy is currently on respiratory isolation due to COVID pneumonia. He was interviewed by telephone this am and plan of care discussed w/ hospitalist service. Mr. Levy reports that his breathing is a little more labored. He now requires O2 at 4L/min NC. He continues to experience MARTE. He currently denies fever or angina. Review of Systems Constitutional: + weakness; no fever Eyes: no problem reported Ear, Nose, Mouth, Throat: no problem reported Respiratory: + dyspnea on exertion; no cough Cardiovascular: no chest pain, no palpitations and no edema Gastrointestinal: no abdominal pain, no nausea, no vomiting and no diarrhea /loose stools Genitourinary: no dysuria, no urinary hesitancy or no hematuria Musculoskeletal: no back pain Integumentary: no rash Neurologic: no falls, no dizziness and no confusion Psychiatric: no problem reported Endocrine: no problem reported Hematologic / Lymphatic: no problem reported Results & Data ([facility]) Vital Signs (Past 12 Hours) Vital Signs Temp Pulse Pulse Resp BP Pulse Ox 07/15/21 07:53 36.8 C 93 H 20 112/60 96 07/15/21 07:35 36.6 C 64 18 148/89 H 92 07/15/21 04:00 36.4 C L 18 136/82 93 07/14/21 23:51 59 L Laboratory Results Laboratory Tests 07/14/21 07/14/21 06:50 06:50 WBC 4.03 L Hgb 13.4 L Hct 41.5 L Plt Count 200 Sodium 136 Potassium 4.6 Chloride 100 Carbon Dioxide 29 BUN 34 H Creatinine 8.37 H* D Glucose 90 Albumin 2.6 L PG Care Time/CCT Total # of Minutes Spent Total Time Spent with Patient: Total time spent is greater than 50% in coordination of care (as documented) at patient's floor/unit and/or counseling patient: Coding Level of Care Code 49895 Subseq Hosp Care Lvl 3 Diagnoses ESRD (end stage renal disease) on dialysis N18.6; Z99.2 Volume overload E87.70 Hypervolemia type: unspecified Pneumonia due to COVID-19 virus U07.1; J12.82 Hypertension I10 (1) Volume overload Hypervolemia type: unspecified Qualified Code(s): E87.70 - Fluid overload, unspecified
[2021-07-15] MEDS ORDERED: amLODIPine BESYLATE 5 MG TAB PO ONE (15:49)
--- NOTE | 2021-07-15 15:49 | Hospitalist Progress Note ---
Date of Service July 15, 2021 Assessment & Plan (1) Pneumonia due to COVID-19 virus: Plan: Patient with diffuse bilateral infiltrates consistent with Covid-19 pneumonia. He is not vaccinated also influenced by volume overload from needing dialysis-receiving dialysis prior to admission His pulse ox has dipped low 94% on a few occasions on room air initiating dexamethasone treatment. Currently the patient does not use supplemental oxygen as was entered initially in the chart Symptoms of COVID-19 of been ongoing for at least 2 to 3 weeks-not a candidate for remdesivir due to timing and renal failure, hypoxia -he is not a candidate for dexamethasone as he is not hypoxic -High risk given time from illness, and comorbid condition of insulin requiring diabetes, renal failure and obesity, Continue to monitor for worsening -Supportive care with antiemetics, antidiarrheals as needed -Give albuterol HFA or nebs as needed for cough and wheezing as he does report the nebulizer treatment he received in the ER helped him feel better -Supportive care, incentive spirometry (2) Accelerated hypertension: Plan: Secondary to not taking metoprolol this morning as well as need for dialysis dialysis 07/13/21 Continue home metoprolol 25 mg p.o. twice daily, heart rate is controlled will try to increase if not will use other agent that does not affect heart rate, consider noemi i given esrd (3) Volume overload: Plan: As above, secondary to need for dialysis Plan for dialysis today Follow daily weights, I's and O's (4) ESRD (end stage renal disease) on dialysis: Plan: ESRD secondary to hypertension. Has a history of renal transplant in 2008 which then failed and he restarted hemodialysis again in approximately 2016 Dialyzes Friday at [facility] in [place] Consult nephrology Appreciate inpatient dialysis management Continue Nephrocaps Sucroferric oxyhydroxide, and sodium polystyrene 4 times a week (5) History of kidney transplant: Plan: As above, rejected now back on dialysis Not currently on antirejection medication (6) Anemia due to chronic kidney disease: Plan: Hemoglobin stable at 13.5 Manage as an outpatient with nephrology (7) Mild aortic valve stenosis: Plan: Mild as of echocardiogram from 2019 Does have significant murmur. No syncope, angina. Consider repeat echocardiogram as an outpatient after recovery from Covid (8) Hyperparathyroidism: Plan: Secondary to ESRD Continue VELPHORO (9) IBS (irritable bowel syndrome): Plan: Has chronic diarrhea Was to be on FODMAPs diet as of GI note from 2020 (10) Hypercholesterolemia: Plan: Continue statin (11) DVT prophylaxis: Plan: Heparin 5000 SQ twice daily Plan: Dispo-admit to medical floor with telemetry, [facility] unit Asked case management to start investigating into getting him a chair at the [facility] dialysis unit in [place] Full code Admission and Anticipated Discharge Date Admission Date: July 13, 2021 Subjective Mr. Levy is currently on respiratory isolation due to COVID pneumonia. He continues to experience MARTE. He has a dry nonproductive cough There were vital signs entered into his chart indicating he to 4 L nasal cannula to maintain his oxygen saturations. This influence decisions to initiate the methadone treatment and to delay the patient's discharge after corroboration with nephrology to have dialysis in the day. Upon further investigation it was determined that this vital sign may not have been completely true however patient does have risk factors for Covid pneumonia worsening in his diabetic subsequently will have the patient receive dialysis on 07/16 and continue dexamethasone at this time as he did have some oxygen saturations on room air below 94% Review of Systems Review of Systems: Mild to moderate distress and fatigue no headache, no visual changes no speech or swallowing issues no chest pain, pressure or palpitations Complains of subjective shortness of breath, nonproductive cough no wheezes no abdominal pain, nausea or vomiting, c/o diarrhea no dysuria, hematuria or frequency no focal joint pain or swelling no back pain, CVA tenderness or radicular pain no bruising, bleeding or rashes no focal signs of weakness or numbness or altered sensation no complaints of anxiety or depression.. Physical Exam Physical Exam: The patient appeared well nourished and normally developed. he did appear objectively worn out Vital signs as documented. Head exam is normocephalic atraumatic Neck is without JVD, thyromegaly, or carotid bruits. Lungs are some fine basilar rales Cardiac exam, Rhythm is regular.. No murmurs, rubs or gallops. Abdominal exam reveals normal bowel sounds, soft non tender, no masses Extremities are nonedematous and both pedal pulses are present Neurologic exam is alert and oriented, no focal loss of strength or sensation Skin is without bruises or rashes, thrill to AV Fistulae in left bicep area Psychologically is without concerns for anxiety or depression Results & Data Results & Data ([place]) Vital Signs (Past 12 Hours) Vital Signs Temp Pulse Pulse Resp BP Pulse Ox 07/15/21 11:15 98.1 F 58 L 19 171/100 H 94 07/15/21 08:00 62 07/15/21 07:35 97.9 F 64 18 148/89 H 92 07/15/21 04:00 97.5 F L 18 136/82 93 PG Care Time/CCT Total # of Minutes Spent Total Time Spent with Patient: Total time spent is greater than 50% in coordination of care (as documented) at patient's floor/unit and/or counseling patient: Coding Level of Care Code 01003 Subseq Hosp Care Lvl 2 Diagnoses Pneumonia due to COVID-19 virus U07.1; J12.82 Accelerated hypertension I10 Volume overload E87.70 ESRD (end stage renal disease) on dialysis N18.6; Z99.2 History of kidney transplant Z94.0 Anemia due to chronic kidney disease N18.9; D63.1 Mild aortic valve stenosis I35.0 Hyperparathyroidism E21.3 IBS (irritable bowel syndrome) K58.9 Hypercholesterolemia E78.00 DVT prophylaxis Z29.9
[2021-07-16] MEDS ORDERED: SODIUM CHLORIDE 0.9% 1000ML 1,000 ML IV PRN (07:00)
[2021-07-16] MEDS ORDERED: HEPARIN SOD (PORCINE) 1000 UNIT/ML IV ONE (07:00)
--- NOTE | 2021-07-16 10:35 | Nephrology Progress Note ---
Date of Service July 16, 2021 Assessment & Plan (1) ESRD (end stage renal disease) on dialysis: Plan: * Will provide HD today. Orders have been placed in EMR and HD RN notified * [facility] HD[facility] MWF 4 hrs 2K 2Ca 1Mg Na 135 HCO3 35 F-180NR EDW 98.5kg * Mr. Levy will need to dialyze at [facility] COVID isolation clinic for 2 weeks following hospital discharge (2) Volume overload: Plan: * Resolved following UF (3) Hypertension: Plan: * Blood pressure controlled. Continue current medical regimen (4) Pneumonia due to COVID-19 virus: Plan: * Continue supportive care Admission and Anticipated Discharge Date Admission Date: July 13, 2021 Subjective Mr. Levy is currently on respiratory isolation due to COVID pneumonia. He was interviewed by telephone this am and plan of care discussed w/ hospitalist service. Mr. Levy reports that his breathing is improved. He is breathing comfortably on RA but continues to experience MARTE. He currently denies fever or angina. Review of Systems Constitutional: + weakness; no fever Eyes: no problem reported Ear, Nose, Mouth, Throat: no problem reported Respiratory: + dyspnea on exertion; no cough Cardiovascular: no chest pain, no palpitations and no edema Gastrointestinal: no abdominal pain, no nausea, no vomiting and no diarrhea/loose stools Genitourinary: no dysuria, no urinary hesitancy or no hematuria Musculoskeletal: no back pain Integumentary: no rash Neurologic: no falls, no dizziness and no confusion Psychiatric: no problem reported Endocrine: no problem reported Hematologic / Lymphatic: no problem reported Results & Data ([facility]) Vital Signs (Past 12 Hours) Vital Signs Temp Pulse Resp BP Pulse Ox 07/16/21 07:32 36.5 C 55 L 16 156/91 H 94 Laboratory Results Laboratory Tests 07/14/21 07/14/21 06:50 06:50 WBC 4.03 L Hgb 13.4 L Hct 41.5 L Plt Count 200 Sodium 136 Potassium 4.6 Chloride 100 Carbon Dioxide 29 BUN 34 H Creatinine 8.37 H* D Glucose 90 Albumin 2.6 L PG Care Time/CCT Total # of Minutes Spent Total Time Spent with Patient: Total time spent is greater than 50% in coordination of care (as documented) at patient's floor/unit and/or counseling patient: Coding Level of Care Code 96116 Subseq Hosp Care Lvl 3 Diagnoses ESRD (end stage renal disease) on dialysis N18.6; Z99.2 Volume overload E87.70 Hypervolemia type: unspecified Hypertension I10 Pneumonia due to COVID-19 virus U07.1; J12.82 (1) Volume overload Hypervolemia type: unspecified Qualified Code(s): E87.70 - Fluid overload, unspecified
[2021-07-16] MEDS: HEPARIN SOD (PORCINE) 1000 UNIT/ML IV SCH (12:30)
[2021-07-16] MEDS: dexAMETHasone 6 MG in SYRINGE 0 ML IV SCH (14:31)
[2021-07-16] MEDS: HEPARIN SOD 5,000 UNIT/0.5 ML VIAL SQ SCH ×2 (16:14→20:38)
[2021-07-16] MEDS: SEVELAMER HCL 800 MG TABLET PO SCH ×3 (16:15→18:18)
[2021-07-16] MEDS: METOPROLOL TARTRATE 50 MG TAB PO SCH ×2 (16:19→20:38)
[2021-07-16] MEDS: amLODIPine BESYLATE 5 MG TAB PO SCH (16:19)
[2021-07-16] MEDS: ATORVASTATIN 40 MG TAB PO SCH (16:19)
[2021-07-16] MEDS: NEPHROCAPS PO SCH (16:20)
--- NOTE | 2021-07-16 22:20 | Hospitalist Progress Note ---
Date of Service July 16, 2021 Assessment & Plan (1) Pneumonia due to COVID-19 virus: Plan: Patient with diffuse bilateral infiltrates consistent with Covid-19 pneumonia. He is not vaccinated saturations stable on room air entire visit Symptoms of COVID-19 of been ongoing for at least 2 to 3 weeks-not a candidate for remdesivir due to timing and renal failure, hypoxia plan to discharge to home tomorrow will be set up for HD at [facility] (2) Accelerated hypertension: Plan: improved Continue home metoprolol 25 mg p.o. twice daily, heart rate is controlled (3) Volume overload: Plan: volume removed with ultrafiltration breathing well, examines euvolemic (4) ESRD (end stage renal disease) on dialysis: Plan: ESRD secondary to hypertension. Has a history of renal transplant in 2008 which then failed and he restarted hemodialysis again in approximately 2016 Dialyzes Friday at [facility] in [place] Consult nephrology Appreciate inpatient dialysis management Continue Nephrocaps set up for HD on in [place], he can transport himself (5) History of kidney transplant: Plan: As above, rejected now back on dialysis Not currently on antirejection medication (6) Anemia due to chronic kidney disease: Plan: Hemoglobin stable Manage as an outpatient with nephrology (7) Mild aortic valve stenosis: Plan: Mild as of echocardiogram from 2019 Does have significant murmur. No syncope, angina. Consider repeat echocardiogram as an outpatient after recovery from Covid (8) Hyperparathyroidism: Plan: Secondary to ESRD Continue VELPHORO (9) IBS (irritable bowel syndrome): Plan: Has chronic diarrhea Was to be on FODMAPs diet as of GI note from 2020 (10) Hypercholesterolemia: Plan: Continue statin (11) DVT prophylaxis: Plan: Heparin 5000 SQ twice daily Plan: discharge to home on 07/17 Admission and Anticipated Discharge Date Admission Date: July 13, 2021 Subjective patient doing great, tolerating HD without issue eating well, no dyspnea, no chest pain, no fever/chills set up for outpatient HD in [place] on , he knows he needs to be there by 545am plan to d/c on 07/17 in the morning Review of Systems Review of Systems: All systems reviewed & are unremarkable except as noted in Subjective Physical Exam Physical Exam: General: well developed, well nourished, no acute distress, comfortable Neck: supple, trachea midline, normal thyroid Lungs: clear to auscultation bilaterally, normal respiratory effort, no accessory muscle use, no distress Heart: regular S1 and S2, no murmur, peripheral pulses normal, capillary refill normal, no edema, left UE fistula with thrill and bruit Abdomen: soft, NT, ND, + BS, no hepatomegaly, normal to percussion Extremities: normal in appearance, no cyanosis, no petechiae, strength is 5/5 bilaterally Neuro: awake, cooperative, moves all extremities, no focal motor deficits, CN II-XII intact, sensation in extremities intact, normal speech Skin: warm, dry, no rash, normal turgor Psych: Awake, alert oriented x 3, euthymic affect Results & Data Results & Data ([facility]) Vital Signs (Past 12 Hours) Vital Signs Temp Pulse Pulse Pulse Resp BP BP 07/16/21 20:35 36.5 C 60 20 165/96 H 07/16/21 16:17 61 18 165/95 H 07/16/21 15:39 36.3 C L 58 L 18 157/90 H 07/16/21 13:50 36.4 C L 57 L 141/84 H 07/16/21 13:20 55 L 137/85 07/16/21 13:00 54 L 133/83 07/16/21 12:40 53 L 137/83 07/16/21 12:20 54 L 136/86 07/16/21 11:59 55 L 135/88 07/16/21 11:40 58 L 153/80 H 07/16/21 11:20 56 L 149/85 H 07/16/21 11:00 58 L 149/88 H 07/16/21 10:40 58 L 145/93 H 07/16/21 10:30 63 149/91 H 07/16/21 10:20 36.4 C L 65 Pulse Ox 07/16/21 20:35 94 07/16/21 16:17 95 07/16/21 15:39 97 07/16/21 13:50 07/16/21 13:20 07/16/21 13:00 07/16/21 12:40 07/16/21 12:20 07/16/21 11:59 07/16/21 11:40 07/16/21 11:20 07/16/21 11:00 07/16/21 10:40 07/16/21 10:30 07/16/21 10:20 Laboratory Results Laboratory Results - last 24 hr 07/16/21 20:33 POC Glucose 140 H Medications Administered Current Inpatient Medications Acetaminophen (Acetaminophen 325 Mg Tab) 650 mg PO Q4H PRN PRN Reason: Pain or Fever Stop: 08/12/21 16:18 Albuterol (Albuterol Hfa 8 Gm Inhaler) 2 puffs INH Q4 PRN PRN Reason: SOB or cough Stop: 08/12/21 16:18 Albuterol (Albuterol 0.083% Nebu Soln 3 Ml Vial) 2.5 mg NEB Q6R PRN PRN Reason: SOB/COUGH or wheezing Stop: 08/12/21 16:18 Amlodipine Besylate ([facility]ip[facility] Bes[facility] 5 Mg Tab) [facility] Stop: 08/15/21 08:59 Last Admin: 07/16/21 16:19 Dose: 5 mg Documented by: Atorvastatin Calcium (Atorvastatin 40 Mg Tab) [facility] Stop: 08/13/21 08:59 Last Admin: 07/16/21 16:19 Dose: 40 mg Documented by: Heparin Sodium (Porcine) (Heparin Sod 5,000 Unit/0.5 Ml Vial) 5,000 units SQ Q12 [facility] Stop: 08/12/21 20:59 Last Admin: 07/16/21 20:38 Dose: 5,000 units Documented by: Dexamethasone 6 mg/ Syringe 1.5 mls @ 1 mls/min IV Q24H [facility] Stop: 08/14/21 08:59 Last Admin: 07/16/21 14:31 Dose: 1 mls/min Documented by: Metoprolol Tartrate (Metoprolol Tartrate 50 Mg Tab) 50 mg PO BID [facility] Stop: 08/13/21 20:59 Last Admin: 07/16/21 20:38 Dose: 50 mg Documented by: Ondansetron HCl (Ondansetron Inj 2 Mg/Ml 2 Ml Vial) 4 mg IV Q6H PRN PRN Reason: Nausea Stop: 08/12/21 16:18 Polyethylene Glycol (Polyethylene (Miralax) 17 Gm Pack) 17 gm PO DAILY PRN PRN Reason: Constipation Stop: 08/12/21 16:18 Sevelamer HCl (Sevelamer Hcl 800 Mg Tablet) 1,600 mg PO TIDM [facility] Stop: 08/12/21 16:59 Last Admin: 07/16/21 18:18 Dose: 1,600 mg Documented by: Sodium Polystyrene Sulfonate (Sodium Polystyrene Sulfonate 15g/60ml Susp) 15 gm PO SuTuThSa@0900 [facility] Stop: 08/13/21 08:59 Last Admin: 07/15/21 08:34 Dose: 15 gm Documented by: Vitamin B Complex/Folic Acid (Nephrocaps) 1 cap PO QAM [facility] Stop: 08/13/21 08:59 Last Admin: 07/16/21 16:20 Dose: 1 cap Documented by: PG Care Time/CCT Total # of Minutes Spent Total Time Spent with Patient: Total time spent is greater than 50% in coordination of care (as documented) at patient's floor/unit and/or counseling patient: Coding Level of Care Code 30689 Subseq Hosp Care Lvl 2 Diagnoses Pneumonia due to COVID-19 virus U07.1; J12.82 Accelerated hypertension I10 Volume overload E87.70 ESRD (end stage renal disease) on dialysis N18.6; Z99.2 History of kidney transplant Z94.0 Anemia due to chronic kidney disease N18.9; D63.1 Mild aortic valve stenosis I35.0 Hyperparathyroidism E21.3 IBS (irritable bowel syndrome) K58.9 Hypercholesterolemia E78.00 DVT prophylaxis Z29.9
[2021-07-17 08:06] LABS: Hematocrit (blood only) 41.4 % (42-52); Hemoglobin 13.5 g/dL (14.0-18.0); Mean Corpuscular Hemoglobin 28.5 pg (25-34); Mean Corpuscular Hgb Conc 32.6 g/dL (32-36); Mean Corpuscular Volume 87.5 fL (80-100); Mean Platelet Volume 9.3 fL (7.4-10.4); Platelet Count 183 K/uL (130-400); RDW Standard Deviation 48.4 fL (36.4-46.3); Red Blood Count 4.73 M/uL (4.7-6.1); White Blood Count 6.69 K/uL (4.8-10.8)
[2021-07-17 08:32] LABS: BUN Creatinine Ratio 6.9 (10-20); Calcium 8.9 mg/dl (8.5-10.1); Creatinine Clr Calc Pharmacy 9.3 ml/min; Est GFR (African American) 5.9 ml/min; Est GFR (Non-African American) 5.1 ml/min; Potassium 5.3 mmol/L (3.5-5.1)
[2021-07-17] MEDS ORDERED: SODIUM CHLORIDE 0.9% 1000ML 1,000 ML IV PRN (08:57)
[2021-07-17] MEDS ORDERED: HEPARIN SOD (PORCINE) 1000 UNIT/ML IV ONE (08:57)
[2021-07-17] MEDS ORDERED: HEPARIN SOD (PORCINE) 1000 UNIT/ML IV SCH (09:00)
--- NOTE | 2021-07-17 11:14 | Hospitalist Progress Note ---
Date of Service July 17, 2021 Assessment & Plan (1) Pneumonia due to COVID-19 virus: Plan: Patient with diffuse bilateral infiltrates consistent with Covid-19 pneumonia. He is not vaccinated saturations stable on room air entire visit Symptoms of COVID-19 of been ongoing for at least 2 to 3 weeks-not a candidate for remdesivir due to timing and renal failure, hypoxia plan to discharge to home tomorrow morning will be set up for HD at [facility] on 07/19 (2) Accelerated hypertension: Plan: improved Continue home metoprolol 25 mg p.o. twice daily, heart rate is controlled continue Norvasc 5mg daily (3) Volume overload: Plan: volume removed with ultrafiltration breathing well, examines euvolemic (4) ESRD (end stage renal disease) on dialysis: Plan: ESRD secondary to hypertension. Has a history of renal transplant in 2008 which then failed and he restarted hemodialysis again in approximately 2016 Dialyzes Friday at [facility] in [place] Consult nephrology Appreciate inpatient dialysis management Continue Nephrocaps K high at 5.3 despite HD yesterday, will perform brief HD session today, labs in AM and discharge set up for HD on in [place], he can transport himself (5) History of kidney transplant: Plan: As above, rejected now back on dialysis Not currently on antirejection medication (6) Anemia due to chronic kidney disease: Plan: Hemoglobin stable at 13.5 Manage as an outpatient with nephrology (7) Mild aortic valve stenosis: Plan: Mild as of echocardiogram from 2020 Does have significant murmur. No syncope, angina. Consider repeat echocardiogram as an outpatient after recovery from Covid (8) Hyperparathyroidism: Plan: Secondary to ESRD Continue VELPHORO (9) IBS (irritable bowel syndrome): Plan: Has chronic diarrhea Was to be on FODMAPs diet as of GI note from 2020 (10) Hypercholesterolemia: Plan: Continue statin (11) DVT prophylaxis: Plan: Heparin 5000 SQ twice daily Plan: discharge to home on 07/18 Admission and Anticipated Discharge Date Admission Date: July 13, 2021 Subjective patient's labs this morning show Cr is up at 10 and K is up at 5.3 d/w Dr. Titus, not sure how this happened as he had HD yesterday, was not cut short will do a brief HD session today to correct K and lower Cr can go home in the morning patient breathing well, no acute issues Review of Systems Review of Systems: All systems reviewed & are unremarkable except as noted in Subjective Physical Exam Physical Exam: General: well developed, well nourished, no acute distress, comfortable Neck: supple, trachea midline, normal thyroid Lungs: clear to auscultation bilaterally, normal respiratory effort, no accessory muscle use, no distress Heart: regular S1 and S2, no murmur, peripheral pulses normal, capillary refill normal, no edema, left UE fistula with thrill and bruit Abdomen: soft, NT, ND, + BS, no hepatomegaly, normal to percussion Extremities: normal in appearance, no cyanosis, no petechiae, strength is 5/5 bilaterally Neuro: awake, cooperative, moves all extremities, no focal motor deficits, CN II-XII intact, sensation in extremities intact, normal speech Skin: warm, dry, no rash, normal turgor Psych: Awake, alert oriented x 3, euthymic affect Results & Data Results & Data ([facility]) Vital Signs (Past 12 Hours) Vital Signs Temp Pulse Resp BP Pulse Ox 07/17/21 07:39 36.3 C L 54 L 18 166/99 H 94 Laboratory Results Laboratory Results - last 24 hr 07/16/21 07/17/21 07/17/21 20:33 07:38 07:38 WBC 6.69 RBC 4.73 Hgb 13.5 L Hct 41.4 L MCV 87.5 MCH 28.5 MCHC 32.6 RDW Std Deviation 48.4 H RDW Coeff of Lisseth 15.0 H Plt Count 183 MPV 9.3 Sodium 135 L Potassium 5.3 H Chloride 101 Carbon Dioxide 23 Anion Gap 11.0 BUN 69 H Creatinine 10.10 H* Est Cr Clr Drug Dosing 9.3 Est GFR ( Amer) 5.9 Est GFR (Non-Af Amer) 5.1 BUN/Creatinine Ratio 6.9 L Glucose 101 H POC Glucose 140 H Calcium 8.9 Medications Administered Current Inpatient Medications Acetaminophen (Acetaminophen 325 Mg Tab) 650 mg PO Q4H PRN PRN Reason: Pain or Fever Stop: 08/12/21 16:18 Albuterol (Albuterol Hfa 8 Gm Inhaler) 2 puffs INH Q4 PRN PRN Reason: SOB or cough Stop: 08/12/21 16:18 Albuterol (Albuterol 0.083% Nebu Soln 3 Ml Vial) 2.5 mg NEB Q6R PRN PRN Reason: SOB/COUGH or wheezing Stop: 08/12/21 16:18 Amlodipine Besylate (Amlodipine Besylate 5 Mg Tab) 5 mg PO QAM [facility] Stop: 08/15/21 08:59 Last Admin: 07/16/21 16:19 Dose: 5 mg Documented by: Atorvastatin Calcium (Atorvastatin 40 Mg Tab) 40 mg PO QAM [facility] Stop: 08/13/21 08:59 Last Admin: 07/16/21 16:19 Dose: 40 mg Documented by: Heparin Sodium (Porcine) (Heparin Sod 5,000 Unit/0.5 Ml Vial) 5,000 units SQ Q12 [facility] Stop: 08/12/21 20:59 Last Admin: 07/16/21 20:38 Dose: 5,000 units Documented by: Dexamethasone 6 mg/ Syringe 1.5 mls @ 1 mls/min IV Q24H [facility] Stop: 08/14/21 08:59 Last Admin: 07/16/21 14:31 Dose: 1 mls/min Documented by: Sodium Chloride (Nss 1000ml) 1,000 mls @ 0 mls/hr IV .Q0M PRN PRN Reason: For Hemodialysis Use ONLY Stop: 07/17/21 14:56 Metoprolol Tartrate (Metoprolol Tartrate 50 Mg Tab) 50 mg PO BID [facility] Stop: 08/13/21 20:59 Last Admin: 07/16/21 20:38 Dose: 50 mg Documented by: Ondansetron HCl (Ondansetron Inj 2 Mg/Ml 2 Ml Vial) 4 mg IV Q6H PRN PRN Reason: Nausea Stop: 08/12/21 16:18 Polyethylene Glycol (Polyethylene (Miralax) 17 Gm Pack) 17 gm PO DAILY PRN PRN Reason: Constipation Stop: 08/12/21 16:18 Sevelamer HCl (Sevelamer Hcl 800 Mg Tablet) 1,600 mg PO TIDM [facility] Stop: 08/12/21 16:59 Last Admin: 07/16/21 18:18 Dose: 1,600 mg Documented by: Sodium Polystyrene Sulfonate (Sodium Polystyrene Sulfonate 15g/60ml Susp) 15 gm PO SuTuThSa@0900 [facility] Stop: 08/13/21 08:59 Last Admin: 07/15/21 08:34 Dose: 15 gm Documented by: Vitamin B Complex/Folic Acid (Nephrocaps) 1 cap PO QAM [facility] Stop: 08/13/21 08:59 Last Admin: 07/16/21 16:20 Dose: 1 cap Documented by: PG Care Time/CCT Total # of Minutes Spent Total Time Spent with Patient: Total time spent is greater than 50% in coordination of care (as documented) at patient's floor/unit and/or counseling patient: Coding Level of Care Code 68383 Subseq Hosp Care Lvl 2 Diagnoses Pneumonia due to COVID-19 virus U07.1; J12.82 Accelerated hypertension I10 Volume overload E87.70 ESRD (end stage renal disease) on dialysis N18.6; Z99.2 History of kidney transplant Z94.0 Anemia due to chronic kidney disease N18.9; D63.1 Mild aortic valve stenosis I35.0 Hyperparathyroidism E21.3 IBS (irritable bowel syndrome) K58.9 Hypercholesterolemia E78.00 DVT prophylaxis Z29.9
--- NOTE | 2021-07-17 11:37 | Nephrology Progress Note ---
Date of Service July 17, 2021 Assessment & Plan (1) ESRD (end stage renal disease) on dialysis: Plan: * Dialysis provided yesterday for 3 hours w/ 2L UF. There were no complications * Labs today show rising BUN and elevated K concerning for recirculation during HD yesterday * Will schedule brief HD treatment today to correct azotemia and hyperkalemia * Recheck PRP in am * Outpatient HD: [facility] MWF 4 hrs 2K 2Ca 1Mg Na 135 HCO3 35 F-180NR EDW 98.5kg * Mr. Levy will need to dialyze at [facility] COVID isolation clinic for 2 weeks following hospital discharge (2) Volume overload: Plan: * Resolved following UF (3) Hypertension: Plan: * Blood pressure controlled. Continue current medical regimen (4) Pneumonia due to COVID-19 virus: Plan: * Continue supportive care Admission and Anticipated Discharge Date Admission Date: July 13, 2021 Subjective Mr. Levy is remains on respiratory isolation due to COVID pneumonia. He was interviewed by telephone this am and plan of care discussed w/ hospitalist service. Mr. Levy reports that his breathing is improved. He is breathing comfortably on RA but continues to experience MARTE. He currently denies fever or angina. Review of Systems Constitutional: + weakness; no fever Eyes: no problem reported Ear, Nose, Mouth, Throat: no problem reported Respiratory: + dyspnea on exertion; no cough Cardiovascular: no chest pain, no palpitations and no edema Gastrointestinal: no abdominal pain, no nausea, no vomiting and no diarrh ea/loose stools Genitourinary: no dysuria, no urinary hesitancy or no hematuria Musculoskeletal: no back pain Integumentary: no rash Neurologic: no falls, no dizziness and no confusion Psychiatric: no problem reported Endocrine: no problem reported Hematologic / Lymphatic: no problem reported Results & Data ([facility]) Vital Signs (Past 12 Hours) Vital Signs Temp Pulse Resp BP Pulse Ox 07/17/21 07:39 36.3 C L 54 L 18 166/99 H 94 Laboratory Results Laboratory Tests 07/17/21 07/17/21 07:38 07:38 WBC 6.69 Hgb 13.5 L Hct 41.4 L Plt Count 183 Sodium 135 L Potassium 5.3 H Chloride 101 BUN 69 H Creatinine 10.10 H* Glucose 101 H PG Care Time/CCT Total # of Minutes Spent Total Time Spent with Patient: Total time spent is greater than 50% in coordination of care (as documented) at patient's floor/unit and/or counseling patient: Coding Level of Care Code 62169 Subseq Hosp Care Lvl 3 Diagnoses ESRD (end stage renal disease) on dialysis N18.6; Z99.2 Volume overload E87.70 Hypervolemia type: unspecified Hypertension I10 Pneumonia due to COVID-19 virus U07.1; J12.82 (1) Volume overload Hypervolemia type: unspecified Qualified Code(s): E87.70 - Fluid overload, unspecified
[2021-07-17] MEDS: SEVELAMER HCL 800 MG TABLET PO SCH ×3 (12:53→17:37)
[2021-07-17] MEDS: SODIUM POLYSTYRENE SULFONATE 15G/60ML SUSP PO SCH (12:55)
[2021-07-17] MEDS: HEPARIN SOD 5,000 UNIT/0.5 ML VIAL SQ SCH ×2 (12:56→22:59)
[2021-07-17] MEDS: ATORVASTATIN 40 MG TAB PO SCH (12:57)
[2021-07-17] MEDS: NEPHROCAPS PO SCH (12:57)
[2021-07-17] MEDS: dexAMETHasone 6 MG in SYRINGE 0 ML IV SCH (12:57)
[2021-07-17] MEDS: amLODIPine BESYLATE 5 MG TAB PO SCH (20:18)
[2021-07-17] MEDS: METOPROLOL TARTRATE 50 MG TAB PO SCH ×2 (20:18→23:01)
--- NOTE | 2021-07-18 08:25 | Nephrology Progress Note ---
Date of Service July 18, 2021 Assessment & Plan (1) ESRD (end stage renal disease) on dialysis: Plan: * SaO2 94% on RA. Electrolyte balance acceptable. OK to discharge from Nephrology perspective w/ outpatient HD at [facility] until removed from respiratory isolation for COVID * Outpatient HD: [facility] MWF 4 hrs 2K 2Ca 1Mg Na 135 HCO3 35 F-180NR EDW 98.5kg (2) Volume overload: Plan: * Resolved following UF (3) Hypertension: Plan: * Blood pressure controlled. Continue current medical regimen (4) Pneumonia due to COVID-19 virus: Plan: * Continue supportive care Admission and Anticipated Discharge Date Admission Date: July 13, 2021 Subjective Mr. Levy is remains on respiratory isolation due to COVID pneumonia. He was interviewed by telephone this am and plan of care discussed w/ hospitalist service. Mr. Levy reports that his breathing is improved. He is breathing comfortably on RA. He is anxious to return home and reports that he feels comfortable driving himself to the [facility] dialysis unit while he is on COVID isolation. Review of Systems Constitutional: + weakness; no fever Eyes: no problem reported Ear, Nose, Mouth, Throat: no problem reported Respiratory: + dyspnea on exertion; no cough Cardiovascular: no chest pain, no palpitations and no edema Gastrointestinal: no abdominal pain, no nausea, no vomiting and no diarrhea/loose stools Genitourinary: no dysuria, no urinary hesitancy or no hematuria Musculoskeletal: no back pain Integumentary: no rash Neurologic: no falls, no dizziness and no confusion Psychiatric: no problem reported Endocrine: no problem reported Hematologic / Lymphatic: no problem reported Results & Data ([facility]) Vital Signs (Past 12 Hours) Vital Signs Temp Pulse Pulse Pulse Resp BP BP 07/17/21 22:57 36.3 C L 63 18 156/96 H 07/17/21 22:40 36.3 C L 60 60 153/97 H 156/96 H 07/17/21 22:20 61 159/95 H 07/17/21 22:00 60 150/89 H 07/17/21 21:40 60 143/85 H 07/17/21 21:20 65 158/90 H 07/17/21 21:00 60 154/92 H 07/17/21 20:40 62 148/92 H Pulse Ox 07/17/21 22:57 93 07/17/21 22:40 07/17/21 22:20 07/17/21 22:00 07/17/21 21:40 07/17/21 21:20 07/17/21 21:00 07/17/21 20:40 Laboratory Results Laboratory Tests 07/18/21 07/18/21 07:56 07:56 WBC 5.76 Hgb 12.7 L Hct 38.6 L Plt Count 191 Sodium 136 Potassium 4.5 D Chloride 101 Carbon Dioxide 26 BUN 53 H Creatinine 7.95 H* D PG Care Time/CCT Total # of Minutes Spent Total Time Spent with Patient: Total time spent is greater than 50% in coordination of care (as documented) at patient's floor/unit and/or counseling patient: Coding Level of Care Code 36848 Subseq Hosp Care Lvl 3 Diagnoses ESRD (end stage renal disease) on dialysis N18.6; Z99.2 Volume overload E87.70 Hypervolemia type: unspecified Hypertension I10 Pneumonia due to COVID-19 virus U07.1; J12.82 (1) Volume overload Hypervolemia type: unspecified Qualified Code(s): E87.70 - Fluid overload, unspecified
[2021-07-18 08:45] LABS: Hematocrit (blood only) 38.6 % (42-52); Hemoglobin 12.7 g/dL (14.0-18.0); Mean Corpuscular Hemoglobin 28.1 pg (25-34); Mean Corpuscular Hgb Conc 32.9 g/dL (32-36); Mean Corpuscular Volume 85.4 fL (80-100); Mean Platelet Volume 9.4 fL (7.4-10.4); Platelet Count 191 K/uL (130-400); RDW Coefficient of Variation 15.1 % (11.5-14.5); RDW Standard Deviation 47.9 fL (36.4-46.3); Red Blood Count 4.52 M/uL (4.7-6.1); White Blood Count 5.76 K/uL (4.8-10.8)
[2021-07-18 09:21] LABS: BUN Creatinine Ratio 6.7 (10-20); Calcium 8.6 mg/dl (8.5-10.1); Creatinine Clr Calc Pharmacy 11.8 ml/min; Est GFR (African American) 7.9 ml/min; Est GFR (Non-African American) 6.8 ml/min; Potassium 4.5 mmol/L (3.5-5.1)
--- NOTE | 2021-07-18 09:38 | Discharge Summary ---
Date of Service July 18, 2021 Admission HPI Per Admitting Provider This patient is a 55-year-old male with a history of ESRD on hemodialysis status post failed renal transplant, HTN, anemia of CKD, secondary hyperparathyroidism, IBS, and obesity, who presents to the ER from his dialysis center after experiencing worsening shortness of breath. He had not even yet started his dialysis treatment. He reports feeling unwell for 2 to 3 weeks now with cough, shortness of breath, nausea, intermittent diarrhea worse than his chronic diarrhea, but denies fevers or chills. He got tested for Covid-19 1 week ago at an urgent care which was negative, but his Covid-19 test was positive in the ER here today. Despite his chest x-ray showing bilateral right greater than left airspace opacities suggestive of multifocal pneumonia, his pulse ox was 97-99% on room air. He was hypertensive but otherwise stable. He will be admitted and undergo urgent dialysis for volume overload, and further observation will be undertaken for his Covid-19 pneumonia. Principal Diagnosis Dyspnea due to volume overload ESRD on HD COVID 19 positive, mild pneumonia, no hypoxemia Discharge Exam General: well developed, well nourished, no acute distress, comfortable Neck: supple, trachea midline, normal thyroid Lungs: clear to auscultation bilaterally, normal respiratory effort, no accessory muscle use, no distress Heart: regular S1 and S2, no murmur, peripheral pulses normal, capillary refill normal, no edema, left UE fistula with bruit and thrill Abdomen: soft, NT, ND, + BS, no hepatomegaly, normal to percussion Extremities: normal in appearance, no cyanosis, no petechiae, strength is 5/5 bilaterally Neuro: awake, cooperative, moves all extremities, no focal motor deficits, CN II-XII intact, sensation in extremities intact, normal speech Skin: warm, dry, no rash, normal turgor Psych: Awake, alert oriented x 3, euthymic affect Discharge Data Allergies Allergy/AdvReac Type Severity Reaction Status Date / Time adhesive Allergy Mild SKIN Verified 07/13/21 11:46 IRRITATION morphine AdvReac Intermediate "WACKS ME Verified 07/13/21 11:46 OUT, DO THINGS THAT CAN'T REMEMBER" aspirin AdvReac Mild NOSE BLEED Verified 07/13/21 11:46 Consultations 07/13/21 12:25 ED Decision to Admit Stat 07/13/21 12:45 Consult Nephrology Routine Ordered Studies 07/13/21 10:14 CT angio chest PE protocol Stat Hospital Course (1) Pneumonia due to COVID-19 virus: Patient with diffuse bilateral infiltrates consistent with Covid-19 pneumonia. He is not vaccinated saturations stable on room air entire visit Symptoms of COVID-19 of been ongoing for at least 2 to 3 weeks-not a candidate for remdesivir due to timing and renal failure, hypoxia discharge to home will be set up for HD at [facility] on 07/19 (2) Accelerated hypertension: improved Continue home metoprolol 25 mg p.o. twice daily, heart rate is controlled continue Norvasc 5mg daily (3) Volume overload: volume removed with ultrafiltration breathing well, examines euvolemic (4) ESRD (end stage renal disease) on dialysis: ESRD secondary to hypertension. Has a history of renal transplant in 2008 which then failed and he restarted hemodialysis again in approximately 2016 Dialyzes Friday at [facility] in [place] Consult nephrology Appreciate inpatient dialysis management Continue Nephrocaps K is 4.5 and Cr is 7 today, improved from yesterday set up for HD on in [place], he can transport himself (5) History of kidney transplant: As above, rejected now back on dialysis Not currently on antirejection medication (6) Anemia due to chronic kidney disease: Hemoglobin stable at 13.5 Manage as an outpatient with nephrology (7) Mild aortic valve stenosis: Mild as of echocardiogram from 2020 Does have significant murmur. No syncope, angina. Consider repeat echocardiogram as an outpatient after recovery from Covid (8) Hyperparathyroidism: Secondary to ESRD Continue VELPHORO (9) IBS (irritable bowel syndrome): Has chronic diarrhea Was to be on FODMAPs diet as of GI note from 2020 (10) Hypercholesterolemia: Continue statin (11) DVT prophylaxis: Heparin 5000 SQ twice daily discharge to home Total Time Total Time Spent Total Time Spent (In Minutes): 31 Total Time Includes: Examination of the Patient, Discharge Planning, Medication Reconciliation and Communication With Other Providers Discharge Plan Discharge Items Patient Disposition: Home - Self-Care Reason For Visit: COVID-19 PNEUMONIA,URGENT DIALYSIS Discharge Diagnosis: COVID 19 pneumonia ESRD on HD Condition on Discharge: Good Goals: follow up with HD on 07/19 in [place] Activity: Resume your previous activity Driving/Machine Use: No limitations Weightbearing: Full weightbearing Non-emergency contact: Primary Care Provider and Back [employer] Call non-emergency contact if: you have any medication questions and your symptoms worsen Follow-up/Referrals: PCP,NO [Primary Care Provider] - Diet: Dialysis Renal Addtl Attending Provider Instructions: Medications: 2 new medications for elevated blood pressure - METOPROLOL: 50mg twice a day, next dose due this evening - AMLODIPINE: 5mg daily in the morning ESRD on hemodialysis arranged to start in [facility] due to COVID positive status report on at 545am, will go to [place] for next 2 weeks, can then resume scheduled at [place] COVID 19: no hypoxia (low oxygen), stable on room air entire stay no need to continue with dexamethasone (steroid) symptoms for 2-3 weeks, no need to isolate at this point stay well rested, well nourished Pending Studies at Discharge: No Stand-Alone Forms: My [facility], Smoking Cessation Medications and DC Order Prescriptions: New amlodipine [Norvasc] 5 mg Tablet 5 mg PO QAM 30 Days Qty: 30 RF: 3 metoprolol tartrate 50 mg Tablet 50 mg PO BID 30 Days Qty: 60 RF: 3 Continued atorvastatin [Lipitor] 40 mg tablet 40 mg PO QAM RF: 0 Nephro-Monserrat 0.8 mg tablet 1 tab PO QAM RF: 0 sodium polystyrene sulfonate Powder 15 g PO 4XWK RF: 0 Velphoro 500 mg tablet,chewable 1,000 mg PO TIDM RF: 0 Discharge Orders: Discharge Order (Routine); Ordered 07/18/21 Ordered By: Jose Brice Admission Data Admit Date/Time: 07/13/21 12:45 Attending Provider: Jose Brice Admit Provider: Jeaneth Jones Primary Care Provider: PCP,NO Other Providers: Jeaneth Jones ; Neo Loomis Coding Level of Care Code D/C DAY MANAGEMENT >30 MINS Diagnoses Pneumonia due to COVID-19 virus U07.1; J12.82 Accelerated hypertension I10 Volume overload E87.70 ESRD (end stage renal disease) on dialysis N18.6; Z99.2 History of kidney transplant Z94.0 Anemia due to chronic kidney disease N18.9; D63.1 Mild aortic valve stenosis I35.0 Hyperparathyroidism E21.3 IBS (irritable bowel syndrome) K58.9 Hypercholesterolemia E78.00 DVT prophylaxis Z29.9
[2021-07-18] MEDS: SODIUM POLYSTYRENE SULFONATE 15G/60ML SUSP PO SCH (10:14)
[2021-07-18] MEDS: SEVELAMER HCL 800 MG TABLET PO SCH (10:15)
[2021-07-18] MEDS: amLODIPine BESYLATE 5 MG TAB PO SCH (10:16)
[2021-07-18] MEDS: ATORVASTATIN 40 MG TAB PO SCH (10:16)
[2021-07-18] MEDS: dexAMETHasone 6 MG in SYRINGE 0 ML IV SCH (10:17)
[2021-07-18] MEDS: METOPROLOL TARTRATE 50 MG TAB PO SCH (10:17)
[2021-07-18] MEDS: NEPHROCAPS PO SCH (10:18)
[2021-07-18] MEDS: HEPARIN SOD 5,000 UNIT/0.5 ML VIAL SQ SCH (10:18)
== END 2021-07-18 13:04 | disposition home or self-care (01) | DRG 177 ==
LOC: ED 09:20 → 2S 12:45 → SUATTDRO 12:45 → 2S 14:03 → 3W 07-15 18:43

== ENCOUNTER 2021-07-21 11:37 | Inpatient (IN) ==
--- NOTE | 2021-07-21 12:12 | XRay Report ---
XR chest 1V portable HISTORY: Shortness of breath. Covid positive. COMPARISON: Chest 07/25/2021. FINDINGS: Slight improvement in the multifocal bilateral airspace opacities consistent with a viral p neumonia. The heart remains enlarged. No pleural effusions. No pneumothorax. IMPRESSION: Slight improved aeration within the multifocal pneumonia. ACT 112: Negative or not required by law. Electronically signed by: Bc Shaikh M.D. 07/21/2021 12:11 PM
[2021-07-21 12:43] LABS: Base Excess VBG 9.4 mEq/L; HCO3 VBG 35 mmol/L; PCO2 VBG 52 mmHg (38-50); PO2 VBG 22 mmHg; pH VBG 7.45 (7.36-7.41)
[2021-07-21 12:47] LABS: Oxygen Saturation VBG < 60.0 %
[2021-07-21 12:54] LABS: Basophils # (auto) 0.01 K/uL (0-0.2); Basophils % (auto) 0.2 %; Eosinophils # (auto) 0.07 K/uL (0-0.5); Eosinophils % (auto) 1.1 %; Hematocrit (blood only) 41.9 % (42-52); Immature Granulocytes # (auto) 0.04 K/uL (0.00-0.02); Immature Granulocytes % (auto) 0.6 %; Lymphocytes # (auto) 0.51 K/uL (1.2-3.4); Lymphocytes % (auto) 7.8 %; Mean Corpuscular Hemoglobin 29.2 pg (25-34); Mean Corpuscular Hgb Conc 33.4 g/dL (32-36); Mean Corpuscular Volume 87.3 fL (80-100); Monocytes # (auto) 0.52 K/uL (0.11-0.59); Monocytes % (auto) 7.9 %; Neutrophils # (auto) 5.41 K/uL (1.4-6.5); Neutrophils % (auto) 82.4 %; Platelet Count 155 K/uL (130-400); RDW Coefficient of Variation 15.3 % (11.5-14.5); RDW Standard Deviation 49.4 fL (36.4-46.3); White Blood Count 6.56 K/uL (4.8-10.8)
[2021-07-21 12:56] LABS: Partial Thromboplastin Time 26.5 Seconds (21.0-31.0); Prothrombin Time 10.5 Seconds (9.0-12.0)
[2021-07-21 13:11] LABS: Alanine Aminotransferase 17 U/L (12-78); Albumin Globulin Ratio 0.6 (0.9-2); Alkaline Phosphatase 89 U/L (45-117); Aspartate Aminotransferase 16 U/L (15-37); Bilirubin,Total 0.9 mg/dl (0.2-1); Blood Urea Nitrogen 28 mg/dl (7-18); Calcium 8.4 mg/dl (8.5-10.1); Carbon Dioxide 35 mmol/L (21-32); Chloride 94 mmol/L (98-107); Est GFR (African American) 12.1 ml/min; Est GFR (Non-African American) 10.5 ml/min; Glucose 120 mg/dl (70-99); Magnesium 2.1 mg/dl (1.8-2.4); Potassium 3.6 mmol/L (3.5-5.1); Sodium 134 mmol/L (136-145); Troponin I < 0.015 ng/ml (0-0.045)
[2021-07-21] MEDS ORDERED: OPTIRAY 320 125ml IV ONE (14:23)
--- NOTE | 2021-07-21 14:33 | CT Scan Report ---
CHEST CTA for PULMONARY ARTERIES CT DOSE: 588.64 mGycm HISTORY: Covid pneumonia. Shortness of breath. Assess for pulmonary embolus. TECHNIQUE: Multiaxial CT images of the chest were performed following the intravenous administration of contrast to evaluate the pulmonary arteries. Maximal intensity projection images were also obtaine d. A dose lowering technique was utilized adhering to the principles of ALARA. COMPARISON STUDY: Chest CTA 07/13/2021. FINDINGS: There are trace bilateral pleural effusions, unchanged. There is a trace pericardial effusi on which is also unchanged. The heart remains mildly enlarged. Normal caliber thoracic aorta with no evidence for dissection. No filling defects within the pulmonary arteries to suggest a pulmonary embo maco. The visualized liver, spleen, and adrenal glands are within normal limits. Mild thickening of th e distal esophagus, unchanged. Mild bilateral hilar lymphadenopathy, unchanged. This is likely reacti ve. No fractures within the visualized osseous structures. No pneumothorax. There is respiratory leydi on artifact. The central airways are patent. Extensive multifocal patchy bilateral airspace opacities are again noted. These have progressed in the interval. IMPRESSION: 1. Interval progression of the extensive multifocal bilateral airspace opacities consistent with a vi ral pneumonia. 2. No evidence for pulmonary embolus. 3. Trace pleural effusions and a trace pericardial effusion, unchanged. ACT 112: Negative or not required by law. Electronically signed by: Bc Shaikh M.D. 07/21/2021 2:31 PM
--- NOTE | 2021-07-21 15:58 | History & Physical Report ---
Date of Service July 21, 2021 Assessment & Plan (1) Acute respiratory failure with hypoxia: Plan: Suspect mucus plugging causing acute deterioration although rising CRP is concerning will defer steroids for now as back on room air at rest. Still recovering from COVID-19 pneumonia. (2) Pneumonia due to 2019-nCoV: Plan: Deferring repeat steroids as above Isolation precautions (3) ESRD (end stage renal disease) on dialysis: Plan: Will need to consult nephrology if he stay till his next dialysis session due ton Friday. (4) Hyperparathyroidism: Plan: Secondary to ESRD Continue VELPHORO (5) Hypercholesterolemia: Plan: Continue atorvastatin (6) Hypertension: Plan: Continue amlodipine (7) Anemia due to chronic kidney disease: Plan: Monitor in AM. Hgb 14 today. Plan: Diet - regular Disposition - obs to med/tele given concern he may get worse with rising CRP and CT showing extensive infiltrates Admission and Anticipated Discharge Date Admission Date: July 21, 2021 History of Present Illness Chief Complaint: Shortness of breath Primary Care Provider: NO PCP Marcos Levy is a 55 year old male with end stage renal disease on dialysis who presents to the ER with shortness of breath after dialysis today. He was recently hospitalized for COVID-19 pneumonia from July 13 to 2020 (discharged 3 days ago). He reports progressive shortness of breath since discharge with increasing non-productive cough. No fever, chills, chest pain, abdominal pain, diarrhea, loss of taste or smell. In the ER CXR shows slight improvement, CRP increased to 9.27. O2 sats 94% on room air at rest but drops to the mid 80s on light exertion. CTA did not show any pulmonary embolus. He was referred to medicine for admission on ongoing management of hypoxia on exertion and COVID-19 pneumonia. Allergies Allergy/AdvReac Type Severity Reaction Status Date / Time adhesive Allergy Mild SKIN Verified 07/21/21 13:35 IRRITATION morphine AdvReac Intermediate "WACKS ME Verified 07/21/21 13:35 OUT, DO THINGS THAT CAN'T REMEMBER" aspirin AdvReac Mild NOSE BLEED Verified 07/21/21 13:35 Home Medications Medication Instructions Recorded Confirmed Type atorvastatin 40 mg tablet (Lipitor) 40 mg PO QAM 07/13/21 07/21/21 History sodium polystyrene sulfonate 15 g PO 4XWK 07/13/21 07/21/21 History sucroferric oxyhydroxide 500 mg 1,000 mg PO TIDM 07/13/21 07/21/21 History chewable tablet (Velphoro) vitamin B complex-vitamin C-folic 1 tab PO QAM 07/13/21 07/21/21 History acid 0.8 mg tablet (Nephro-Monserrat) amlodipine 5 mg tablet (Norvasc) 5 mg PO QAM 30 Days #30 tab 07/17/21 07/21/21 Rx metoprolol tartrate 50 mg tablet 50 mg PO BID 30 Days #60 tab 07/17/21 07/21/21 Rx Past Med/Surg History Medical History Anemia due to chronic kidney disease Chronic back pain Diabetes mellitus diet controlled Esophageal reflux controlled ESRD (end stage renal disease) on dialysis Diaylsis clinic [facility] History of blood transfusion 4 years ago (in setting of plasmaphoresis for kidney issues) Hx of malignant skin melanoma Hypercholesterolemia Hyperparathyroidism Hypertension Kidney transplant failure Mild aortic valve stenosis Per 12/06/19 ECHO Obesity Osteoarthritis Surgical History H/O radical excision of skin lesion back r/t melanoma History of bowel resection r/t diverticulitis History of cataract surgery bilateral History of colonoscopy History of colostomy History of colostomy reversal ~2006 History of esophagogastroduodenoscopy (EGD) 08/20/19: MAC sedation at [facility] History of kidney transplant ~2008 S/P arteriovenous (AV) fistula creation left arm Family History Mother Family history of diabetes mellitus Father FHx: myocardial infarction, Onset Age: 69 Other No family history of adverse response to anesthesia Denies family history of Crohn's disease Colorectal cancer Ulcerative colitis Social History Smoking Status: Never smoker Second Hand Exposure: No; Hx Alcohol Use: Yes Alcohol type: beer and wine Alcohol Intake Frequency: Monthly or Less Hx Substance Use: No Preferred Language: Turkmen Communication Ability: Effective Vocational Aide Required: No Beliefs That Will Affect Care: None marital status: Current Living Situation: Spouse Feels Safe at Home: Yes Assistive Devices: None Review of Systems Review of Systems: All systems reviewed & are unremarkable except as noted in HPI & below Physical Exam Constitutional: well developed and well nourished; no acute distress Eyes: + anicteric sclerae; normal pupil size ENMT: external ear and nose normal, oropharynx normal Respiratory: normal respiratory effort, lungs clear to auscultation Cardiovascular: Rate/Rhythm: regular rate and regular rhythm Extremities: normal capillary refill and + pedal edema (trace equal b/l LE); no calf tenderness Gastrointestinal (Abdomen): normal bowel sounds, soft, nontender, no hepatosplenomegaly Musculoskeletal: no cyanosis or clubbing, extremities motor strength 5/5 Skin: no rashes, warm and dry Neurologic: moves all extremities and awake; not confused Psychiatric: A+Ox3, euthymic affect Genitourinary: no CVA tenderness Results & Data Results & Data ([facility]) Vital Signs (Past 12 Hours) Vital Signs Temp Pulse Resp BP Pulse Ox 07/21/21 14:50 88 L 07/21/21 14:00 69 24 163/94 H 94 07/21/21 13:30 70 22 159/103 H 96 07/21/21 13:00 69 23 158/87 H 95 07/21/21 11:58 94 07/21/21 11:51 36.1 C L 71 20 157/85 H 93 Laboratory Results Abnormal lab results 07/21/21 07/21/21 07/21/21 Range/Units 12:31 12:31 12:32 Hct 41.9 L (42-52) % RDW Std Deviation 49.4 H (36.4-46.3) fL RDW Coeff of Lisseth 15.3 H (11.5-14.5) % Lymph # (Auto) 0.51 L (1.2-3.4) K/uL Immature Gran # (Auto) 0.04 H (0.00-0.02) K/uL VBG pH 7.45 H (7.36-7.41) VBG pCO2 52 H (38-50) mmHg Sodium 134 L (136-145) mmol/L Chloride 94 L (98-107) mmol/L Carbon Dioxide 35 H (21-32) mmol/L BUN 28 H (7-18) mg/dl Creatinine 5.55 H* (0.6-1.4) mg/dl BUN/Creatinine Ratio 5.0 L (10-20) Glucose 120 H (70-99) mg/dl Calcium 8.4 L (8.5-10.1) mg/dl Albumin 3.0 L (3.4-5.0) gm/dl Globulin 5.0 H (2.5-4.0) gm/dl Albumin/Globulin Ratio 0.6 L (0.9-2) Diagnostic Findings XR chest 1V portable HISTORY: Shortness of breath. Covid positive. COMPARISON: Chest 07/25/2021. FINDINGS: Slight improvement in the multifocal bilateral airspace opacities consistent with a viral pneumonia. The heart remains enlarged. No pleural effusions. No pneumothorax. IMPRESSION: Slight improved aeration within the multifocal pneumonia. CHEST CTA for PULMONARY ARTERIES CT DOSE: 588.64 mGycm HISTORY: Covid pneumonia. Shortness of breath. Assess for pulmonary embolus. TECHNIQUE: Multiaxial CT images of the chest were performed following the intravenous administration of contrast to evaluate the pulmonary arteries. Maximal intensity projection images were also obtained. A dose lowering technique was utilized adhering to the principles of ALARA. COMPARISON STUDY: Chest CTA 07/13/2021. FINDINGS: There are trace bilateral pleural effusions, unchanged. There is a trace pericardial effusion which is also unchanged. The heart remains mildly enlarged. Normal caliber thoracic aorta with no evidence for dissection. No filling defects within the pulmonary arteries to suggest a pulmonary embolus. The visualized liver, spleen, and adrenal glands are within normal limits. Mild thickening of the distal esophagus, unchanged. Mild bilateral hilar lymphadenopathy, unchanged. This is likely reactive. No fractures within the visualized osseous structures. No pneumothorax. There is respiratory motion artifact. The central airways are patent. Extensive multifocal patchy bilateral airspace opacities are again noted. These have progressed in the interval. IMPRESSION: 1. Interval progression of the extensive multifocal bilateral airspace opacities consistent with a viral pneumonia. 2. No evidence for pulmonary embolus. 3. Trace pleural effusions and a trace pericardial effusion, unchanged. Medications Administered ER Medications Given: None ECG Indication: SOB/dyspnea Rate (beats per minute): 71 Rhythm: normal sinus Findings: no acute ischemic change Comparison ECG Date: from (July 13, 2021) Change: no significant change Code Status & VTE Plan Code Status Full VTE Prophylaxis Plan VTE Prophylaxis will be ordered: Yes PG Care Time/CCT Total # of Minutes Spent Total Time Spent with Patient: Total time spent is greater than 50% in coordination of care (as documented) at patient's floor/unit and/or counseling patient: Coding Level of Care Code INT OBSERVATION CARE 70M LVL 3 Diagnoses Acute respiratory failure with hypoxia J96.01 ESRD (end stage renal disease) on dialysis N18.6; Z99.2 Hyperparathyroidism E21.3 Hypercholesterolemia E78.00 Hypertension I10 Anemia due to chronic kidney disease N18.9; D63.1 Pneumonia due to 2019-nCoV U07.1; J12.82
[2021-07-21 16:16] LABS: Appearance Urine Clear (Clear); Bacteria Urine Automated Negative (Negative); Bilirubin Urine Negative (Negative); Blood Urine Negative (Negative); Color Urine Yellow; Glucose Urine UA Negative (Negative); Ketones Urine Negative (Negative); Leukocyte Esterase Urine Negative (Negative); Nitrite Urine Negative (Negative); RBC Urine Automated 0-4 /hpf (0-4); Specific Gravity Urine 1.008 (1.000-1.030); Urobilinogen Urine Negative (Negative); pH Urine 8.5 (4.5-7.5)
[2021-07-21 16:23] LABS: Protein Urine Trace (Negative)
--- NOTE | 2021-07-21 18:31 | Emergency Department Note ---
History of Present Illness General Chief Complaint: Shortness of Breath/Dyspnea Stated Complaint: CAN HARDLY BREATHE,REF BY DOC Time Seen by Provider: 07/21/21 12:12 History of Present Illness Provider Complaint: shortness of breath and cough Onset (ago): day(s) (3) Severity: moderate Consistency/Duration: + progressively worsening Relieved By: + nothing Exacerbated By: + exertion and + coughing Context: + recent illness (Diagnosed with COVID-19 on July 13, 2021) Known history of: diabetes Associated symptoms: + cough, + sputum production and + chest congestion; no pain with inspiration, no fever, no wheezing, no orthopnea, no lower extremity pain, no polyuria, no paresthesias, no palpitations, no hemoptysis, no diaphoresis, no syncope or no abdominal pain HPI Narrative: 55-year-old male end-stage renal disease on hemodialysis Friday presents emergency department for shortness of breath. Patient states he presented here after his full session of dialysis today. Patient did receive a full session of dialysis outpatient today. Patient states he was discharged from the hospital 3 days ago after being admitted for Covid pneumonia. He states since he has been discharged has been getting progressively more short of breath. He states his shortness of breath is made worse with coughing and exertion. He does report no fever. He reports no hemoptysis. No nausea or vomiting. Related Data Home oxygen amount: none Home Medications Medication Instructions Recorded Confirmed Type atorvastatin 40 mg tablet (Lipitor) 40 mg PO QAM 07/13/21 07/21/21 History sodium polystyrene sulfonate 15 g PO 4XWK 07/13/21 07/21/21 History sucroferric oxyhydroxide 500 mg 1,000 mg PO TIDM 07/13/21 07/21/21 History chewable tablet (Velphoro) vitamin B complex-vitamin C-folic 1 tab PO QAM 07/13/21 07/21/21 History acid 0.8 mg tablet (Nephro-Monserrat) amlodipine 5 mg tablet (Norvasc) 5 mg PO QAM 30 Days #30 tab 07/17/21 07/21/21 Rx metoprolol tartrate 50 mg tablet 50 mg PO BID 30 Days #60 tab 07/17/21 07/21/21 Rx Allergies Allergy/AdvReac Type Severity Reaction Status Date / Time adhesive Allergy Mild SKIN Verified 07/21/21 13:35 IRRITATION morphine AdvReac Intermediate "WACKS ME Verified 07/21/21 13:35 OUT, DO THINGS THAT CAN'T REMEMBER" aspirin AdvReac Mild NOSE BLEED Verified 07/21/21 13:35 Past Med/Surg History Medical History Anemia due to chronic kidney disease Chronic back pain Diabetes mellitus diet controlled Esophageal reflux controlled ESRD (end stage renal disease) on dialysis Diaylsis clinic [facility]W- History of blood transfusion 4 years ago (in setting of plasmaphoresis for kidney issues) Hx of malignant skin melanoma Hypercholesterolemia Hyperparathyroidism Hypertension Kidney transplant failure Mild aortic valve stenosis Per 12/06/19 ECHO Obesity Osteoarthritis Surgical History H/O radical excision of skin lesion back r/t melanoma History of bowel resection r/t diverticulitis History of cataract surgery bilateral History of colonoscopy History of colostomy History of colostomy reversal ~2006 History of esophagogastroduodenoscopy (EGD) 08/20/19: MAC sedation at [facility] History of kidney transplant ~2008 S/P arteriovenous (AV) fistula creation left arm Family History Mother Family history of diabetes mellitus Father FHx: myocardial infarction, Onset Age: 69 Other No family history of adverse response to anesthesia Denies family history of Crohn's disease Colorectal cancer Ulcerative colitis Social History Smoking Status: Never smoker Second Hand Exposure: No; Hx Alcohol Use: Yes Alcohol type: beer and wine Alcohol Intake Frequency: Monthly or Less Hx Substance Use: No Preferred Language: Chinese Communication Ability: Effective 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 Beliefs That Will Affect Care: None Current Living Situation: Alone Feels Safe at Home: Yes Assistive Devices: None Review of Systems A total of 10 systems reviewed and were otherwise negative Physical Exam Vital Signs: Vital Signs - 24 hr 07/21/21 11:51 07/21/21 11:58 07/21/21 13:00 Temperature 36.1 C L Temperature Source Temporal Artery Sc an Pulse Rate 71 69 Pulse Rate from Sp O2 Sensor 70 Pulse Rhythm Regular Pulse Strength Normal Respiratory Rate 20 23 Respiratory Effort / Characteristics Non-Labored Sponta neous Respiratory Depth Normal Respiratory Patter n Regular Blood Pressure 157/85 H 158/87 H Blood Pressure Jillian n 109 110 Blood Pressure Pos ition Sitting Pulse Oximetry 93 94 95 Oxygen Delivery Me thod Room Air Room Air Sepsis Recent Feve r Within 48 Hours No Sepsis New/Unexpla ined Change in Men samantha Status No Sepsis Action Take n by Nursing No Action Required 07/21/21 13:30 07/21/21 14:00 07/21/21 14:30 Temperature Temperature Source Pulse Rate 70 69 72 Pulse Rate from Sp O2 Sensor 71 69 72 Pulse Rhythm Pulse Strength Respiratory Rate 22 24 20 Respiratory Effort / Characteristics Respiratory Depth Respiratory Patter n Blood Pressure 159/103 H 163/94 H 172/104 H Blood Pressure Jillian n 121 117 126 Blood Pressure Pos ition Pulse Oximetry 96 94 94 Oxygen Delivery Me thod Sepsis Recent Feve r Within 48 Hours Sepsis New/Unexpla ined Change in Men samantha Status Sepsis Action Take n by Nursing 07/21/21 14:50 07/21/21 15:00 07/21/21 15:30 Temperature Temperature Source Pulse Rate 73 68 Pulse Rate from Sp O2 Sensor 67 Pulse Rhythm Pulse Strength Respiratory Rate 21 24 Respiratory Effort / Characteristics Respiratory Depth Respiratory Patter n Blood Pressure 176/110 H 162/105 H Blood Pressure Jillian n 132 124 Blood Pressure Pos ition Pulse Oximetry 88 L 94 Oxygen Delivery Me thod Room Air Sepsis Recent Feve r Within 48 Hours Sepsis New/Unexpla ined Change in Men samantha Status Sepsis Action Take n by Nursing 07/21/21 16:00 07/21/21 16:30 07/21/21 17:00 Temperature Temperature Source Pulse Rate 72 69 67 Pulse Rate from Sp O2 Sensor 72 69 67 Pulse Rhythm Pulse Strength Respiratory Rate 21 24 23 Respiratory Effort / Characteristics Respiratory Depth Respiratory Patter n Blood Pressure 157/98 H 165/106 H 156/94 H Blood Pressure Jillian n 117 125 114 Blood Pressure Pos ition Pulse Oximetry 100 100 99 Oxygen Delivery Me thod Sepsis Recent Feve r Within 48 Hours Sepsis New/Unexpla ined Change in Men samantha Status Sepsis Action Take n by Nursing 07/21/21 17:30 Temperature Temperature Source Pulse Rate 61 Pulse Rate from Sp O2 Sensor 61 Pulse Rhythm Pulse Strength Respiratory Rate 21 Respiratory Effort / Characteristics Respiratory Depth Respiratory Patter n Blood Pressure 146/92 H Blood Pressure Jillian n 110 Blood Pressure Pos ition Pulse Oximetry 97 Oxygen Delivery Me thod Sepsis Recent Feve r Within 48 Hours Sepsis New/Unexpla ined Change in Men samantha Status Sepsis Action Take n by Nursing Physical Exam: Physical Exam GENERAL: He is oriented to person, place, and time. He appears well-developed and well-nourished. He does not appear distressed. HENT: Exam performed. - Head: Normocephalic and atraumatic. - Right Ear: External ear normal. No mastoid tenderness. - Left Ear: External ear normal. No mastoid tenderness. - Mouth/Throat: The oropharynx is clear and moist. No trismus in the jaw. No dental abscesses or uvula swelling. No oropharyngeal exudate or tonsillar abscesses. EYES: Conjunctivae and EOM are normal. Pupils are equal, round, and reactive to light. Right eye exhibits no discharge. Left eye exhibits no discharge. No scleral icterus. NECK: Normal range of motion. Neck supple. No JVD present. No spinous process tenderness present. No carotid bruit present. No rigidity. No tracheal deviation and normal range of motion present. No Brudzinski's sign and no Kernig's sign noted. CV: Normal rate, regular rhythm, normal heart sounds and intact distal pulses. There is no peripheral edema. Palpable radial pulses bue. PULM/CHEST: Rhonchi bilaterally. ABD: The abdomen is soft. Bowel sounds are normal. He has no distension. No mass is present. There is no tenderness. There is no rebound, no guarding, no Juarez's sign and no tenderness at McBurney's point. Rovsig negative. MUSC/SKEL: Normal range of motion. There is no peripheral edema, tenderness or deformity. LYMPH: No cervical adenopathy. NEURO: He is alert and oriented to person, place, and time. He has normal strength. No cranial nerve deficit or sensory deficit. Coordination and gait normal. GCS eye subscore is 4. GCS verbal subscore is 5. GCS motor subscore is 6. Cerebellar tests wnl. SKIN: Skin is warm and dry. He is not diaphoretic. PSYCH: He has a normal mood and affect. Behavior is normal. Judgment and thought content normal. Course Course 1212: The patient was evaluated in room B12. A complete history and physical exam was performed Cardiac monitoring: An order was placed for continuous cardiac monitoring. The monitor shows a rate of 70 with sinus rhythm EMR reviewed.Patient was admitted to the hospital from July 13, 2021 to July 18, 2021, 3 days ago. 1500: Patient becomes hypoxic and extremely short of breath with walking in his room when ambulatory pulse ox was attempted. Labs are at baseline for the patient. CTA of the chest shows no PE but does show interval progression of the extensive multifocal bilateral airspace opacities. [facility] Discussed the case with Dr. Chisholm. Administered Medications Discontinued Medications Ioversol (Optiray 320 125ml) 120 ml IV ONCE ONE Stop: 07/21/21 14:24 Last Admin: 07/21/21 14:23 Dose: 120 ml Documented by: [id number] Medical Decision Making Laboratory Data Result diagrams: 07/21/21 12:31 07/21/21 12:31 Lab Results 07/21/21 07/21/21 07/21/21 Range/Units 12:31 12:31 12:31 WBC 6.56 (4.8-10.8) K/uL RBC 4.80 (4.7-6.1) M/uL Hgb 14.0 (14.0-18.0) g/dL Hct 41.9 L (42-52) % MCV 87.3 (80-100) fL MCH 29.2 (25-34) pg MCHC 33.4 (32-36) g/dL RDW Std Deviation 49.4 H (36.4-46.3) fL RDW Coeff of Lisseth 15.3 H (11.5-14.5) % Plt Count 155 (130-400) K/uL MPV 9.0 (7.4-10.4) fL Immature Gran % (Auto) 0.6 % Neut % (Auto) 82.4 % Lymph % (Auto) 7.8 % Centre % (Auto) 7.9 % Eos % (Auto) 1.1 % Baso % (Auto) 0.2 % Neut # (Auto) 5.41 (1.4-6.5) K/uL Lymph # (Auto) 0.51 L (1.2-3.4) K/uL Centre # (Auto) 0.52 (0.11-0.59) K/uL Eos # (Auto) 0.07 (0-0.5) K/uL Baso # (Auto) 0.01 (0-0.2) K/uL Immature Gran # (Auto) 0.04 H (0.00-0.02) K/uL PT 10.5 (9.0-12.0) Seconds INR 1.0 (0.9-1.1) APTT 26.5 (21.0-31.0) Seconds PTT Ratio 1.0 VBG pH (7.36-7.41) VBG pCO2 (38-50) mmHg VBG pO2 mmHg VBG HCO3 mmol/L VBG O2 Saturation % VBG Base Excess mEq/L Barometric Pressure mm/Hg Sodium 134 L (136-145) mmol/L Potassium 3.6 (3.5-5.1) mmol/L Chloride 94 L (98-107) mmol/L Carbon Dioxide 35 H (21-32) mmol/L Anion Gap 5.0 (3-11) BUN 28 H (7-18) mg/dl Creatinine 5.55 H* (0.6-1.4) mg/dl Est Cr Clr Drug Dosing Not Reportable Est GFR ( Amer) 12.1 ml/min Est GFR (Non-Af Amer) 10.5 ml/min BUN/Creatinine Ratio 5.0 L (10-20) Glucose 120 H (70-99) mg/dl Lactate (0.4-2.0) mmol/L Calcium 8.4 L (8.5-10.1) mg/dl Magnesium 2.1 (1.8-2.4) mg/dl Total Bilirubin 0.9 (0.2-1) mg/dl AST 16 (15-37) U/L ALT 17 (12-78) U/L Alkaline Phosphatase 89 (45-117) U/L Troponin I < 0.015 (0-0.045) ng/ml C-Reactive Protein (0-0.29) mg/dl Total Protein 8.0 (6.4-8.2) gm/dl Albumin 3.0 L (3.4-5.0) gm/dl Globulin 5.0 H (2.5-4.0) gm/dl Albumin/Globulin Ratio 0.6 L (0.9-2) Procalcitonin (0-0.5) ng/ml Urine Color Urine Appearance (Clear) Urine pH (4.5-7.5) Ur Specific [place] (1.000-1.030) Urine Protein (Negative) Urine Glucose (UA) (Negative) Urine Ketones (Negative) Urine Blood (Negative) Urine Nitrite (Negative) Urine Bilirubin (Negative) Urine Urobilinogen (Negative) Ur Leukocyte Esterase (Negative) Urine WBC (Auto) (0-5) /hpf Urine RBC (Auto) (0-4) /hpf U Hyaline Cast (Auto) (0-5) /lpf U Epithel Cells (Auto) (0-5) /lpf Urine Bacteria (Auto) (Negative) 07/21/21 07/21/21 07/21/21 Range/Units 12:31 12:32 12:32 WBC (4.8-10.8) K/uL RBC (4.7-6.1) M/uL Hgb (14.0-18.0) g/dL Hct (42-52) % MCV (80-100) fL MCH (25-34) pg MCHC (32-36) g/dL RDW Std Deviation (36.4-46.3) fL RDW Coeff of Lisseth (11.5-14.5) % Plt Count (130-400) K/uL MPV (7.4-10.4) fL Immature Gran % (Auto) % Neut % (Auto) % Lymph % (Auto) % Centre % (Auto) % Eos % (Auto) % Baso % (Auto) % Neut # (Auto) (1.4-6.5) K/uL Lymph # (Auto) (1.2-3.4) K/uL Centre # (Auto) (0.11-0.59) K/uL Eos # (Auto) (0-0.5) K/uL Baso # (Auto) (0-0.2) K/uL Immature Gran # (Auto) (0.00-0.02) K/uL PT (9.0-12.0) Seconds INR (0.9-1.1) APTT (21.0-31.0) Seconds PTT Ratio VBG pH (7.36-7.41) VBG pCO2 (38-50) mmHg VBG pO2 mmHg VBG HCO3 mmol/L VBG O2 Saturation % VBG Base Excess mEq/L Barometric Pressure mm/Hg Sodium (136-145) mmol/L Potassium (3.5-5.1) mmol/L Chloride (98-107) mmol/L Carbon Dioxide (21-32) mmol/L Anion Gap (3-11) BUN (7-18) mg/dl Creatinine (0.6-1.4) mg/dl Est Cr Clr Drug Dosing Est GFR ( Amer) ml/min Est GFR (Non-Af Amer) ml/min BUN/Creatinine Ratio (10-20) Glucose (70-99) mg/dl Lactate 1.6 (0.4-2.0) mmol/L Calcium (8.5-10.1) mg/dl Magnesium (1.8-2.4) mg/dl Total Bilirubin (0.2-1) mg/dl AST (15-37) U/L ALT (12-78) U/L Alkaline Phosphatase (45-117) U/L Troponin I (0-0.045) ng/ml C-Reactive Protein 9.27 H (0-0.29) mg/dl Total Protein (6.4-8.2) gm/dl Albumin (3.4-5.0) gm/dl Globulin (2.5-4.0) gm/dl Albumin/Globulin Ratio (0.9-2) Procalcitonin 0.33 (0-0.5) ng/ml Urine Color Urine Appearance (Clear) Urine pH (4.5-7.5) Ur Specific [place] (1.000-1.030) Urine Protein (Negative) Urine Glucose (UA) (Negative) Urine Ketones (Negative) Urine Blood (Negative) Urine Nitrite (Negative) Urine Bilirubin (Negative) Urine Urobilinogen (Negative) Ur Leukocyte Esterase (Negative) Urine WBC (Auto) (0-5) /hpf Urine RBC (Auto) (0-4) /hpf U Hyaline Cast (Auto) (0-5) /lpf U Epithel Cells (Auto) (0-5) /lpf Urine Bacteria (Auto) (Negative) 07/21/21 07/21/21 Range/Units 12:32 16:04 WBC (4.8-10.8) K/uL RBC (4.7-6.1) M/uL Hgb (14.0-18.0) g/dL Hct (42-52) % MCV (80-100) fL MCH (25-34) pg MCHC (32-36) g/dL RDW Std Deviation (36.4-46.3) fL RDW Coeff of Lisseth (11.5-14.5) % Plt Count (130-400) K/uL MPV (7.4-10.4) fL Immature Gran % (Auto) % Neut % (Auto) % Lymph % (Auto) % Centre % (Auto) % Eos % (Auto) % Baso % (Auto) % Neut # (Auto) (1.4-6.5) K/uL Lymph # (Auto) (1.2-3.4) K/uL Centre # (Auto) (0.11-0.59) K/uL Eos # (Auto) (0-0.5) K/uL Baso # (Auto) (0-0.2) K/uL Immature Gran # (Auto) (0.00-0.02) K/uL PT (9.0-12.0) Seconds INR (0.9-1.1) APTT (21.0-31.0) Seconds PTT Ratio VBG pH 7.45 H (7.36-7.41) VBG pCO2 52 H (38-50) mmHg VBG pO2 22 mmHg VBG HCO3 35 mmol/L VBG O2 Saturation < 60.0 % VBG Base Excess 9.4 mEq/L Barometric Pressure 724.4 mm/Hg Sodium (136-145) mmol/L Potassium (3.5-5.1) mmol/L Chloride (98-107) mmol/L Carbon Dioxide (21-32) mmol/L Anion Gap (3-11) BUN (7-18) mg/dl Creatinine (0.6-1.4) mg/dl Est Cr Clr Drug Dosing Est GFR ( Amer) ml/min Est GFR (Non-Af Amer) ml/min BUN/Creatinine Ratio (10-20) Glucose (70-99) mg/dl Lactate (0.4-2.0) mmol/L Calcium (8.5-10.1) mg/dl Magnesium (1.8-2.4) mg/dl Total Bilirubin (0.2-1) mg/dl AST (15-37) U/L ALT (12-78) U/L Alkaline Phosphatase (45-117) U/L Troponin I (0-0.045) ng/ml C-Reactive Protein (0-0.29) mg/dl Total Protein (6.4-8.2) gm/dl Albumin (3.4-5.0) gm/dl Globulin (2.5-4.0) gm/dl Albumin/Globulin Ratio (0.9-2) Procalcitonin (0-0.5) ng/ml Urine Color Yellow Urine Appearance Clear (Clear) Urine pH 8.5 H (4.5-7.5) Ur Specific [place] 1.008 (1.000-1.030) Urine Protein Trace H (Negative) Urine Glucose (UA) Negative (Negative) Urine Ketones Negative (Negative) Urine Blood Negative (Negative) Urine Nitrite Negative (Negative) Urine Bilirubin Negative (Negative) Urine Urobilinogen Negative (Negative) Ur Leukocyte Esterase Negative (Negative) Urine WBC (Auto) 1-5 (0-5) /hpf Urine RBC (Auto) 0-4 (0-4) /hpf U Hyaline Cast (Auto) 1-5 (0-5) /lpf U Epithel Cells (Auto) 10-20 H (0-5) /lpf Urine Bacteria (Auto) Negative (Negative) Imaging Data Radiologist's Impression: Chest X-Ray 07/21/21 11:54 XR chest 1V portable HISTORY: Shortness of breath. Covid positive. COMPARISON: Chest 07/25/2021. FINDINGS: Slight improvement in the multifocal bilateral airspace opacities consistent with a viral pneumonia. The heart remains enlarged. No pleural effusions. No pneumothorax. IMPRESSION: Slight improved aeration within the multifocal pneumonia. ACT 112: Negative or not required by law. Electronically signed by: Bc Shaikh M.D. 07/21/2021 12:11 PM Chest CTA 07/21/21 13:30 CHEST CTA for PULMONARY ARTERIES CT DOSE: 588.64 mGycm HISTORY: Covid pneumonia. Shortness of breath. Assess for pulmonary embolus. TECHNIQUE: Multiaxial CT images of the chest were performed following the intravenous administration of contrast to evaluate the pulmonary arteries. Maximal intensity projection images were also obtained. A dose lowering technique was utilized adhering to the principles of ALARA. COMPARISON STUDY: Chest CTA 07/13/2021. FINDINGS: There are trace bilateral pleural effusions, unchanged. There is a trace pericardial effusion which is also unchanged. The heart remains mildly en larged. Normal caliber thoracic aorta with no evidence for dissection. No filling defects within the pulmonary arteries to suggest a pulmonary embolus. The visualized liver, spleen, and adrenal glands are within normal limits. Mild thickening of the distal esophagus, unchanged. Mild bilateral hilar lymphadenopathy, unchanged. This is likely reactive. No fractures within the visualized osseous structures. No pneumothorax. There is respiratory motion artifact. The central airways are patent. Extensive multifocal patchy bilateral airspace opacities are again noted. These have progressed in the interval. IMPRESSION: 1. Interval progression of the extensive multifocal bilateral airspace opacities consistent with a viral pneumonia. 2. No evidence for pulmonary embolus. 3. Trace pleural effusions and a trace pericardial effusion, unchanged. ACT 112: Negative or not required by law. Electronically signed by: Bc Shaikh M.D. 07/21/2021 2:31 PM ECG Data Interpretation: Sinus rhythm with rate of 71. [place] 204. QRS and QTc intervals within normal limits. First-degree AV block present. No ST elevation or ST depression. [facility] Narrative 1212: The patient was evaluated in room B12. A complete history and physical exam was performed Cardiac monitoring: An order was placed for continuous cardiac monitoring. The monitor shows a rate of 70 with sinus rhythm EMR reviewed.Patient was admitted to the hospital from July 13, 2021 to July 18, 2021, 3 days ago. 1500: Patient becomes hypoxic and extremely short of breath with walking in his room when ambulatory pulse ox was attempted. Labs are at baseline for the patient. CTA of the chest shows no PE but does show interval progression of the extensive multifocal bilateral airspace opacities. [facility] Discussed the case with Dr. Chisholm. Impression & Plan Hypoxia, Pneumonia due to 2018-nCoV Discharge Plan Visit Data Chief Complaint: Shortness of Breath/Dyspnea Stated Complaint: CAN HARDLY BREATHE,REF BY DOC Discharge Problem: Hypoxia, Pneumonia due to 2018-nCoV Patient Disposition: Admitted As Inpatient Forms Stand Alone Forms: [facility] Prescriptions Prescriptions: No Action atorvastatin [Lipitor] 40 mg tablet 40 mg PO QAM RF: 0 Nephro-Monserrat 0.8 mg tablet 1 tab PO QAM RF: 0 sodium polystyrene sulfonate Powder 15 g PO [id number] RF: 0 Velphoro 500 mg tablet,chewable 1,000 mg PO TIDM RF: 0 amlodipine [Norvasc] 5 mg Tablet 5 mg PO QAM 30 Days Qty: 30 RF: 3 metoprolol tartrate 50 mg Tablet 50 mg PO BID 30 Days Qty: 60 RF: 3 Referrals Referrals: PCP,NO [Primary Care Provider] -
[2021-07-21] MEDS: METOPROLOL TARTRATE 50 MG TAB PO SCH (21:03)
[2021-07-21] MEDS: guaiFENesin 600 MG TABCR PO SCH (23:00)
[2021-07-22 07:35] LABS: Basophils # (auto) 0.01 K/uL (0-0.2); Basophils % (auto) 0.2 %; Eosinophils # (auto) 0.18 K/uL (0-0.5); Eosinophils % (auto) 3.1 %; Hematocrit (blood only) 37.9 % (42-52); Hemoglobin 11.9 g/dL (14.0-18.0); Immature Granulocytes # (auto) 0.03 K/uL (0.00-0.02); Immature Granulocytes % (auto) 0.5 %; Lymphocytes # (auto) 0.66 K/uL (1.2-3.4); Lymphocytes % (auto) 11.4 %; Mean Corpuscular Hemoglobin 27.7 pg (25-34); Mean Corpuscular Hgb Conc 31.4 g/dL (32-36); Mean Corpuscular Volume 88.1 fL (80-100); Mean Platelet Volume 9.6 fL (7.4-10.4); Monocytes % (auto) 10.3 %; Neutrophils # (auto) 4.33 K/uL (1.4-6.5); Neutrophils % (auto) 74.5 %; Platelet Count 168 K/uL (130-400); RDW Coefficient of Variation 15.6 % (11.5-14.5); RDW Standard Deviation 50.4 fL (36.4-46.3); White Blood Count 5.81 K/uL (4.8-10.8)
[2021-07-22 07:59] LABS: Alanine Aminotransferase 16 U/L (12-78); Albumin Globulin Ratio 0.6 (0.9-2); Albumin Level 2.4 gm/dl (3.4-5.0); Alkaline Phosphatase 74 U/L (45-117); Aspartate Aminotransferase 18 U/L (15-37); BUN Creatinine Ratio 5.8 (10-20); Bilirubin,Total 0.6 mg/dl (0.2-1); Blood Urea Nitrogen 46 mg/dl (7-18); Calcium 8.4 mg/dl (8.5-10.1); Carbon Dioxide 31 mmol/L (21-32); Chloride 93 mmol/L (98-107); Est GFR (African American) 7.9 ml/min; Est GFR (Non-African American) 6.8 ml/min; Globulin 4.3 gm/dl (2.5-4.0); Glucose 88 mg/dl (70-99); Potassium 4.2 mmol/L (3.5-5.1); Sodium 132 mmol/L (136-145); Total Protein 6.7 gm/dl (6.4-8.2)
[2021-07-22] MEDS: guaiFENesin 600 MG TABCR PO SCH ×2 (08:57→20:37)
[2021-07-22] MEDS: METOPROLOL TARTRATE 50 MG TAB PO SCH ×2 (08:58→21:32)
[2021-07-22] MEDS: VITAMIN B COMPLEX TAB PO SCH (09:00)
[2021-07-22] MEDS ORDERED: SODIUM POLYSTYRENE 15 GM/60 ML 500ML BOTTLE PO SCH (09:00)
[2021-07-22] MEDS: amLODIPine BESYLATE 5 MG TAB PO SCH (09:00)
[2021-07-22] MEDS: ATORVASTATIN 40 MG TAB PO SCH (09:00)
--- NOTE | 2021-07-22 09:47 | Electrocardiogram Report ---
Test Reason : Blood Pressure : / mmHG Vent. Rate : 071 BPM Atrial Rate : 071 BPM P-R Int : 204 ms QRS Dur : 086 ms QT Int : 422 ms P-R-T Axes : 044 028 059 degrees QTc Int : 458 ms Normal sinus rhythm Possible Left atrial enlargement Borderline ECG When compared with ECG of 13-JUL-2021 09:30, NM interval has decreased Confirmed by Oscar Brice ([id number]) on 07/22/2021 9:47:11 AM Referred By: Miesha Awad Confirmed By:Oscar Brice
--- NOTE | 2021-07-22 10:07 | Hospitalist Progress Note ---
Date of Service July 22, 2021 Assessment & Plan (1) Acute respiratory failure with hypoxia: Plan: breathing got progressively worse after discharge on Wednesday 07/18 coughing more, dyspnea on exertion, breathing was really bad after HD yesterday and HD clinic recommended he come to ED CXR and CTA chest shows progression of viral pneumonia CRP was up to 12.6, procalcitonin normal will start on dexamethasone 6mg IV daily as imaging shows progression of disease and saturations < 94% on room air get a CXR tomorrow morning request a 2 step in the morning might be okay for discharge tomorrow if he is still stable on room air, but if saturations are < 94% then would continue the dexamethasone on discharge if breathing gets worse then keep patient, would not discharge if he is requiring oxygen at rest (2) Pneumonia due to 2019-nCoV: Plan: worsening infiltrates on CXR and CTA chest CRP trending up to 12 dexamethasone 6mg IV daily, started 07/22 flutter valve, incentive spirometer (3) ESRD (end stage renal disease) on dialysis: Plan: hold on nephrology consult for now next HD session is on Tuesday 07/24 if he goes home tomorrow then can get HD outpatient Friday if he needs to stay then consult Dr. Awad, I spoke with her about this plan, she agrees (4) Diabetes mellitus: Plan: Novolog SS, diabetic diet give NPH with dexamethasone monitor for hyperglycemia (5) Hyperparathyroidism: (6) Hypercholesterolemia: (7) Hypertension: Plan: BP up slightly continue home regimen (8) Esophageal reflux: Plan: PPI (9) Anemia due to chronic kidney disease: Plan: Hb stable at 11.9 Plan: potential discharge tomorrow, move to medical COVID unit today as tele is normal check CXR in morning, 2 step in morning, continue dexamethasone if he is requiring oxygen at rest tomorrow then would keep in hospital, consult nephrology for HD on Friday morning Admission and Anticipated Discharge Date Admission Date: July 21, 2021 Subjective patient feeling a little better this morning, weaned off oxygen says his breathing started to get worse after he went home on Friday CRP was up a lot on admission, CXR and CTA chest shows worsening bilateral infiltrates will give dexamethasone daily back down to room air from 2L this morning, says he feels better, + cough but not much sputum will give him flutter valve, incentive spirometer he got full HD session on Friday morning, can hold off on consulting nephrology, won't need HD until Friday chance he might go home tomorrow Review of Systems Review of Systems: All systems reviewed & are unremarkable except as noted in Subjective Respiratory: + cough, + dyspnea and + dyspnea on exertion Physical Exam Physical Exam: General: well developed, well nourished, obese male, no acute distress, comfortable Neck: supple, trachea midline, normal thyroid Lungs: clear to auscultation bilaterally, normal respiratory effort, no accessory muscle use, no distress Heart: regular S1 and S2, no murmur, peripheral pulses normal, capillary refill normal, no edema, LUE fistula with thrill and bruit Abdomen: soft, NT, ND, + BS, no hepatomegaly, normal to percussion Extremities: normal in appearance, no cyanosis, no petechiae, strength is 5/5 bilaterally Neuro: awake, cooperative, moves all extremities, no focal motor deficits, CN II-XII intact, sensation in extremities intact, normal speech Skin: warm, dry, no rash, normal turgor Psych: Awake, alert oriented x 3, euthymic affect Results & Data Results & Data ([facility]) Vital Signs (Past 12 Hours) Vital Signs Temp Pulse Resp BP Pulse Ox 07/22/21 04:35 36.7 C 63 18 146/83 H 91 07/21/21 23:32 36.7 C 70 16 158/91 H 100 Laboratory Results Laboratory Results - last 24 hr 07/21/21 07/21/21 07/21/21 12:31 12:31 12:31 WBC 6.56 RBC 4.80 Hgb 14.0 Hct 41.9 L MCV 87.3 MCH 29.2 MCHC 33.4 RDW Std Deviation 49.4 H RDW Coeff of Lisseth 15.3 H Plt Count 155 MPV 9.0 Immature Gran % (Auto) 0.6 Neut % (Auto) 82.4 Lymph % (Auto) 7.8 [place] % (Auto) 7.9 Eos % (Auto) 1.1 Baso % (Auto) 0.2 Neut # (Auto) 5.41 Lymph # (Auto) 0.51 L [place] # (Auto) 0.52 Eos # (Auto) 0.07 Baso # (Auto) 0.01 Immature Gran # (Auto) 0.04 H PT 10.5 INR 1.0 APTT 26.5 PTT Ratio 1.0 VBG pH VBG pCO2 VBG pO2 VBG HCO3 VBG O2 Saturation VBG Base Excess Barometric Pressure Sodium 134 L Potassium 3.6 Chloride 94 L Carbon Dioxide 35 H Anion Gap 5.0 BUN 28 H Creatinine 5.55 H* Est Cr Clr Drug Dosing Not Reportable Est GFR ( Amer) 12.1 Est GFR (Non-Af Amer) 10.5 BUN/Creatinine Ratio 5.0 L Glucose 120 H Lactate Calcium 8.4 L Magnesium 2.1 Total Bilirubin 0.9 AST 16 ALT 17 Alkaline Phosphatase 89 Troponin I < 0.015 C-Reactive Protein Total Protein 8.0 Albumin 3.0 L Globulin 5.0 H Albumin/Globulin Ratio 0.6 L Procalcitonin Urine Color Urine Appearance Urine pH Ur Specific [place] Urine Protein Urine Glucose (UA) Urine Ketones Urine Blood Urine Nitrite Urine Bilirubin Urine Urobilinogen Ur Leukocyte Esterase Urine WBC (Auto) Urine RBC (Auto) U Hyaline Cast (Auto) U Epithel Cells (Auto) Urine Bacteria (Auto) 07/21/21 07/21/21 07/21/21 12:31 12:32 12:32 WBC RBC Hgb Hct MCV MCH MCHC RDW Std Deviation RDW Coeff of Lisseth Plt Count MPV Immature Gran % (Auto) Neut % (Auto) Lymph % (Auto) [place] % (Auto) Eos % (Auto) Baso % (Auto) Neut # (Auto) Lymph # (Auto) [place] # (Auto) Eos # (Auto) Baso # (Auto) Immature Gran # (Auto) PT INR APTT PTT Ratio VBG pH VBG pCO2 VBG pO2 VBG HCO3 VBG O2 Saturation VBG Base Excess Barometric Pressure Sodium Potassium Chloride Carbon Dioxide Anion Gap BUN Creatinine Est Cr Clr Drug Dosing Est GFR ( Amer) Est GFR (Non-Af Amer) BUN/Creatinine Ratio Glucose Lactate 1.6 Calcium Magnesium Total Bilirubin AST ALT Alkaline Phosphatase Troponin I C-Reactive Protein 9.27 H Total Protein Albumin Globulin Albumin/Globulin Ratio Procalcitonin 0.33 Urine Color Urine Appearance Urine pH Ur Specific [place] Urine Protein Urine Glucose (UA) Urine Ketones Urine Blood Urine Nitrite Urine Bilirubin Urine Urobilinogen Ur Leukocyte Esterase Urine WBC (Auto) Urine RBC (Auto) U Hyaline Cast (Auto) U Epithel Cells (Auto) Urine Bacteria (Auto) 07/21/21 07/21/21 07/22/21 12:32 16:04 06:24 WBC 5.81 RBC 4.30 L Hgb 11.9 L Hct 37.9 L MCV 88.1 MCH 27.7 MCHC 31.4 L RDW Std Deviation 50.4 H RDW Coeff of Lisseth 15.6 H Plt Count 168 MPV 9.6 Immature Gran % (Auto) 0.5 Neut % (Auto) 74.5 Lymph % (Auto) 11.4 [place] % (Auto) 10.3 Eos % (Auto) 3.1 Baso % (Auto) 0.2 Neut # (Auto) 4.33 Lymph # (Auto) 0.66 L [place] # (Auto) 0.60 H Eos # (Auto) 0.18 Baso # (Auto) 0.01 Immature Gran # (Auto) 0.03 H PT INR APTT PTT Ratio VBG pH 7.45 H VBG pCO2 52 H VBG pO2 22 VBG HCO3 35 VBG O2 Saturation < 60.0 VBG Base Excess 9.4 Barometric Pressure 724.4 Sodium Potassium Chloride Carbon Dioxide Anion Gap BUN Creatinine Est Cr Clr Drug Dosing Est GFR ( Amer) Est GFR (Non-Af Amer) BUN/Creatinine Ratio Glucose Lactate Calcium Magnesium Total Bilirubin AST ALT Alkaline Phosphatase Troponin I C-Reactive Protein Total Protein Albumin Globulin Albumin/Globulin Ratio Procalcitonin Urine Color Yellow Urine Appearance Clear Urine pH 8.5 H Ur Specific [place] 1.008 Urine Protein Trace H Urine Glucose (UA) Negative Urine Ketones Negative Urine Blood Negative Urine Nitrite Negative Urine Bilirubin Negative Urine Urobilinogen Negative Ur Leukocyte Esterase Negative Urine WBC (Auto) 1-5 Urine RBC (Auto) 0-4 U Hyaline Cast (Auto) 1-5 U Epithel Cells (Auto) 10-20 H Urine Bacteria (Auto) Negative 07/22/21 06:24 WBC RBC Hgb Hct MCV MCH MCHC RDW Std Deviation RDW Coeff of Lisseth Plt Count MPV Immature Gran % (Auto) Neut % (Auto) Lymph % (Auto) [place] % (Auto) Eos % (Auto) Baso % (Auto) Neut # (Auto) Lymph # (Auto) [place] # (Auto) Eos # (Auto) Baso # (Auto) Immature Gran # (Auto) PT INR APTT PTT Ratio VBG pH VBG pCO2 VBG pO2 VBG HCO3 VBG O2 Saturation VBG Base Excess Barometric Pressure Sodium 132 L Potassium 4.2 D Chloride 93 L Carbon Dioxide 31 Anion Gap 7.0 BUN 46 H D Creatinine 7.92 H* D Est Cr Clr Drug Dosing Not Reportable Est GFR ( Amer) 7.9 Est GFR (Non-Af Amer) 6.8 BUN/Creatinine Ratio 5.8 L Glucose 88 Lactate Calcium 8.4 L Magnesium Total Bilirubin 0.6 AST 18 ALT 16 Alkaline Phosphatase 74 Troponin I C-Reactive Protein 12.60 H Total Protein 6.7 Albumin 2.4 L Globulin 4.3 H Albumin/Globulin Ratio 0.6 L Procalcitonin Urine Color Urine Appearance Urine pH Ur Specific [place] Urine Protein Urine Glucose (UA) Urine Ketones Urine Blood Urine Nitrite Urine Bilirubin Urine Urobilinogen Ur Leukocyte Esterase Urine WBC (Auto) Urine RBC (Auto) U Hyaline Cast (Auto) U Epithel Cells (Auto) Urine Bacteria (Auto) Medications Administered Current Inpatient Medications Amlodipine Besylate (Amlodipine Besylate 5 Mg Tab) [facility] [place]: 08/21/21 08:59 Last Admin: 07/22/21 09:00 Dose: 5 mg Documented by: Atorvastatin Calcium (Atorvastatin 40 Mg Tab) 40 mg PO QAM [facility] Stop: 08/21/21 08:59 Last Admin: 07/22/21 09:00 Dose: 40 mg Documented by: Dextromethorphan Polymer Complex (Dextromethorphan Polymr Complx 30 Mg/5 Ml Udp) 30 mg PO Q6H PRN PRN Reason: Cough Stop: 08/20/21 21:52 Guaifenesin (Guaifenesin 600 Mg Tabcr) 1,200 mg PO Q12 [facility] Stop: 08/20/21 21:54 Last Admin: 07/22/21 08:57 Dose: 1,200 mg Documented by: Dexamethasone 6 mg/ Syringe 1.5 mls @ 1 mls/min IV QAM [facility] Stop: 08/21/21 09:59 Metoprolol Tartrate (Metoprolol Tartrate 50 Mg Tab) 50 mg PO BID [facility] Stop: 08/20/21 20:59 Last Admin: 07/22/21 08:58 Dose: 50 mg Documented by: Miscellaneous (*Velphoro*Order Awaiting Action) 1 ea N/A QS [facility] Stop: 08/21/21 00:00 Last Admin: 07/22/21 07:38 Dose: Not Given Documented by: Sodium Polystyrene Sulfonate (Sodium Polystyrene Sulfonate 15g/60ml Susp) 15 gm PO SuTuThSa [facility] Stop: 08/21/21 08:59 Vitamin B Complex (Vitamin B Complex Tab) 1 tab PO QAM [facility] Stop: 08/21/21 08:59 Last Admin: 07/22/21 09:00 Dose: 1 tab Documented by: PG Care Time/CCT Total # of Minutes Spent Total Time Spent with Patient: Total time spent is greater than 50% in coordination of care (as documented) at patient's floor/unit and/or counseling patient: Coding Level of Care Code 07558 Subseq Hosp Care Lvl 3 Diagnoses Acute respiratory failure with hypoxia J96.01 Pneumonia due to 2019-nCoV U07.1; J12.82 ESRD (end stage renal disease) on dialysis N18.6; Z99.2 Diabetes mellitus E11.9 Hyperparathyroidism E21.3 Hypercholesterolemia E78.00 Hypertension I10 Esophageal reflux K21.9 Anemia due to chronic kidney disease N18.9; D63.1
[2021-07-22] MEDS: dexAMETHasone 6 MG in SYRINGE 0 ML IV SCH (10:35)
[2021-07-22] MEDS ORDERED: DEXTROSE 50% 50 ML SYRINGE IV PRN (14:45)
[2021-07-22] MEDS ORDERED: CARBOHYDRATES FOR HYPOGLYCEMIA PO PRN (14:45)
[2021-07-22] MEDS ORDERED: GLUCOSE 40% GEL 15 GM TUBE PO PRN (14:45)
[2021-07-22] MEDS ORDERED: GLUCAGON FOR INJ 1 MG VIAL IM PRN (14:45)
[2021-07-22] MEDS ORDERED: GLUCOSE 10 TABS/TUBE PO PRN (14:45)
[2021-07-22] MEDS: INSULIN ASPART 100 UNITS/ML 3 ML PEN SC SCH ×2 (18:33→21:09)
[2021-07-22] MEDS: HEPARIN SOD 5,000 UNIT/0.5 ML VIAL SQ SCH (20:38)
[2021-07-23] MEDS: HEPARIN SOD 5,000 UNIT/0.5 ML VIAL SQ SCH ×4 (05:20→21:23)
--- NOTE | 2021-07-23 07:55 | XRay Report ---
XR chest 1V portable HISTORY: Covid pneumonia. Shortness of breath. COMPARISON: Chest 07/21/2021. FINDINGS: The heart remains enlarged. No pleural effusions. No pneumothorax. Extensive multifocal pat josue airspace opacities persist and are consistent with a viral pneumonia. IMPRESSION: Redemonstration of the extensive multifocal airspace opacities consistent with a viral pneumonia. ACT 112: Negative or not required by law. Electronically signed by: Bc Shaikh M.D. 07/23/2021 7:53 AM
[2021-07-23] MEDS ORDERED: ROCURONIUM BROMIDE 10 MG/ML 5 ML VIAL IV ONE (08:07)
[2021-07-23] MEDS ORDERED: LIDOCAINE 2% 20 MG/ML 5 ML SYR IV ONE (08:07)
[2021-07-23] MEDS ORDERED: ETOMIDATE 2 MG/ML 20 ML VIAL IV ONE (08:07)
[2021-07-23] MEDS: INSULIN ASPART 100 UNITS/ML 3 ML PEN SC SCH ×4 (08:34→21:04)
[2021-07-23 09:12] LABS: BUN Creatinine Ratio 7.4 (10-20); Blood Urea Nitrogen 78 mg/dl (7-18); C Reactive Protein 9.41 mg/dl (0-0.29); Calcium 8.9 mg/dl (8.5-10.1); Carbon Dioxide 26 mmol/L (21-32); Chloride 90 mmol/L (98-107); Est GFR (African American) 5.6 ml/min; Est GFR (Non-African American) 4.8 ml/min; Glucose 107 mg/dl (70-99); Potassium 4.7 mmol/L (3.5-5.1); Sodium 128 mmol/L (136-145)
--- NOTE | 2021-07-23 13:50 | Hospitalist Progress Note ---
Date of Service July 23, 2021 Assessment & Plan (1) Acute respiratory failure with hypoxia: Plan: 2nd COVID-19 pneumonia. can't rule out element of pulmonary edema from ESRD. (2) Pneumonia due to 2019-nCoV: Plan: ongoing O2 requirement cxr this am with significant b/l infiltrates day #2 dexamethasone 6mg daily not a candidate for Remdesivir treatment crp noted to be high - repeat am flutter valve, etc supportive care (3) ESRD (end stage renal disease) on dialysis: Plan: spoke with Dr Awad - formal consult placed for HD needs schedule - M/W/ (4) Hyperparathyroidism: Plan: Secondary to ESRD Continue VELPHORO (5) Hypercholesterolemia: Plan: Continue atorvastatin LFTs wnl (6) Hypertension: Plan: Continue amlodipine stable, controlled (7) Anemia due to chronic kidney disease: Plan: stable (8) DVT prophylaxis: Plan: heparin TID (9) Diabetes mellitus type 2 in nonobese: Plan: check an a1c while here novolog SSI likely to need basal as well Plan: change OBS to full admission status left message for 07/23 on phone voicemail Admission and Anticipated Discharge Date Admission Date: July 21, 2021 Subjective patient feels similar to yesterday getting HD during the visit he is coughing - no sputum no dyspnea at rest -just exertion eating fine no fevers no loss of taste/smell Review of Systems Review of Systems: gen - no fevers/chills pulm - no hemoptysis GI - no n/v CV - no chest pain Physical Exam Physical Exam: gen - getting dialyzed; NAD, pleasant neck - no JVD heart - RRR, s1 s2, 2/6 AMBROSIO LSB lungs - minimal rales (dry) bases, no increased wob abd - soft NT ext - no edema psych - a/o x 3 Results & Data Results & Data ([facility]) Vital Signs (Past 12 Hours) Vital Signs Temp Pulse Pulse Pulse Resp BP BP 07/23/21 13:20 65 131/86 07/23/21 13:00 72 135/84 07/23/21 12:40 55 L 143/80 H 07/23/21 12:20 56 L 131/90 07/23/21 12:00 59 L 147/93 H 07/23/21 11:40 57 L 143/89 H 07/23/21 11:20 55 L 141/89 H 07/23/21 11:00 57 L 144/89 H 07/23/21 10:40 69 158/97 H 07/23/21 10:20 58 L 132/92 07/23/21 10:00 58 L 147/92 H 07/23/21 09:30 36.5 C 62 07/23/21 09:20 59 L 136/73 07/23/21 08:37 55 L 18 154/91 H Pulse Ox 07/23/21 13:20 07/23/21 13:00 07/23/21 12:40 07/23/21 12:20 07/23/21 12:00 07/23/21 11:40 07/23/21 11:20 07/23/21 11:00 07/23/21 10:40 07/23/21 10:20 07/23/21 10:00 07/23/21 09:30 07/23/21 09:20 07/23/21 08:37 97 Laboratory Results Laboratory Results - last 24 hr 07/22/21 07/22/21 07/23/21 16:44 20:55 07:26 Sodium 128 L Potassium 4.7 Chloride 90 L Carbon Dioxide 26 Anion Gap 12.0 H BUN 78 H D Creatinine 10.50 H* D Est Cr Clr Drug Dosing Not Reportable Est GFR ( Amer) 5.6 Est GFR (Non-Af Amer) 4.8 BUN/Creatinine Ratio 7.4 L Glucose 107 H POC Glucose 172 H 169 H Calcium 8.9 C-Reactive Protein 9.41 H 07/23/21 07/23/21 08:33 12:44 Sodium Potassium Chloride Carbon Dioxide Anion Gap BUN Creatinine Est Cr Clr Drug Dosing Est GFR ( Amer) Est GFR (Non-Af Amer) BUN/Creatinine Ratio Glucose POC Glucose 111 H 112 H Calcium C-Reactive Protein PG Care Time/CCT Total # of Minutes Spent Total Time Spent with Patient: Total time spent is greater than 50% in coordination of care (as documented) at patient's floor/unit and/or counseling patient: Coding Level of Care Code 98870 Subseq Hosp Care Lvl 2 Diagnoses Acute respiratory failure with hypoxia J96.01 Pneumonia due to 2019-nCoV U07.1; J12.82 ESRD (end stage renal disease) on dialysis N18.6; Z99.2 Hyperparathyroidism E21.3 Hypercholesterolemia E78.00 Hypertension I10 Anemia due to chronic kidney disease N18.9; D63.1 DVT prophylaxis Z29.9 Diabetes mellitus type 2 in nonobese E11.9
[2021-07-23] MEDS: dexAMETHasone 6 MG in SYRINGE 0 ML IV SCH (14:05)
[2021-07-23] MEDS: PANTOprazole 40 MG TAB PO SCH (14:06)
[2021-07-23] MEDS: VITAMIN B COMPLEX TAB PO SCH (14:06)
[2021-07-23] MEDS: amLODIPine BESYLATE 5 MG TAB PO SCH (14:06)
[2021-07-23] MEDS: ATORVASTATIN 40 MG TAB PO SCH (14:06)
[2021-07-23] MEDS: guaiFENesin 600 MG TABCR PO SCH ×2 (14:06→21:05)
[2021-07-23] MEDS: METOPROLOL TARTRATE 50 MG TAB PO SCH ×2 (14:06→21:06)
--- NOTE | 2021-07-23 15:41 | Nephrology Consultation ---
Date of Consultation July 23, 2021 Assessment & Plan (1) ESRD (end stage renal disease) on dialysis: (2) History of kidney transplant: (3) Pneumonia due to COVID-19 virus: ESRD, on hemodialysis, Friday, Friday, Friday. Last dialysis was last Friday add the COVID isolation clinic after admitted to the hospital more than a week for COVID pneumonia and discharged last week. Admitted to the hospital after dialysis with worsening shortness of breath and chest x-ray also showed worsening viral pneumonia. -- aim for 3 L UF, challenge dry weight considering recent hospitalization and possible weight loss. -- left arm nephrology precaution, dose medications for GFR less than 10 -- start on Tums as phosphate binder if Velphoro is not available in hospital, continue on renal vitamin Will follow Thank you for allowing me to participate in your patient's care. It was a plea sure to see Marcos. History of Present Illness Reason for Consultation: End-stage renal disease on hemodialysis. Attending Physician: Yoav Pisano History of Present Illness Mr. Marcos Levy is a 55-year-old male with ESRD on HD, HTN, recent COVID Pneumonia, admitted to the hospital with worsening shortness of breath with COVID pneumonia. Nephrology consult was requested for management of hemodialysis while inpatient. [facility] records are reviewed in detail during patient's visit. Marcos was recently diagnosed with COVID pneumonia and admitted to the hospital for several days with progressive shortness of breath and chest x-ray and CT scan showing multifocal pneumonia. He has not been vaccinated for COVID. As clinically he was improved he was discharged from the hospital last and he had dialysis last Friday at COVID clinic in [place]. During dialysis he had 3 L of UF and at the end of dialysis was below his dry weight which was 98.5. While he arrived for dialysis he was complaining of shortness of breath hwhich slightly improved at the end of dialysis with 3 L of UF. However, after dialysis he was again significantly short of breath with minimum walking and his room air oxygen saturation dropped to 84 while walking and he was referred to ER for admission. On admission chest x-ray showed worsening pulmonary infiltrate suggestive of viral pneumonia. He has been getting steroid. He still easily gets short of breath while walking to the bathroom. Marcos has ESRD, on dialysis M,W,F at [facility], via left RC AVF. 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 He had followed with Dr. Hayward in the CKD clinic since ~1999. He started hemodialysis in 2004. In 2007, he received a donor transplant at [facility] [place]. In January 2016, he presented presented with allograft failure in the setting of non adherence to medications. He never regained his renal function and was started back on maintenance dialysis. He has been doing fairly well on dialysis, EDW 98.5 kg, his blood pressure usually runs high and he refused to increase the dose of his medication. He has also has some noncompliance with other dialysis related medications including phosphate binder. Has h/o perforated diverticulum with abscess formation in 2016, underwent a [place] procedure with colostomy reversal at a later date. He was tolerating dialysis this morning, blood pressure was stable with goal UF 3 L. appetite has been fair. Allergies Allergy/AdvReac Type Severity Reaction Status Date / Time adhesive Allergy Mild SKIN Verified 07/21/21 13:35 IRRITATION morphine AdvReac Intermediate "WACKS ME Verified 07/21/21 13:35 OUT, DO THINGS THAT CAN'T REMEMBER" aspirin AdvReac Mild NOSE BLEED Verified 07/21/21 13:35 Home Medications Medication Instructions Recorded Confirmed Type atorvastatin 40 mg tablet (Lipitor) 40 mg PO QAM 07/13/21 07/21/21 History sodium polystyrene sulfonate 15 g PO [id number] 07/13/21 07/21/21 History sucroferric oxyhydroxide 500 mg 1,000 mg PO TIDM 07/13/21 07/21/21 History chewable tablet (Velphoro) vitamin B complex-vitamin C-folic 1 tab PO QAM 07/13/21 07/21/21 History acid 0.8 mg tablet (Nephro-Monserrat) amlodipine 5 mg tablet (Norvasc) 5 mg PO QAM 30 Days #30 tab 07/17/21 07/21/21 Rx metoprolol tartrate 50 mg tablet 50 mg PO BID 30 Days #60 tab 07/17/21 07/21/21 Rx Patient History Medical History Anemia due to chronic kidney disease Chronic back pain Diabetes mellitus diet controlled Esophageal reflux controlled ESRD (end stage renal disease) on dialysis [facility] [place]/M-W-F History of blood transfusion 4 years ago (in setting of plasmaphoresis for kidney issues) Hx of malignant skin melanoma Hypercholesterolemia Hyperparathyroidism Hypertension Kidney transplant failure Mild aortic valve stenosis Per 12/06/19 ECHO Obesity Osteoarthritis Surgical History H/O radical excision of skin lesion back r/t melanoma History of bowel resection r/t diverticulitis History of cataract surgery bilateral History of colonoscopy History of colostomy History of colostomy reversal ~2006 History of esophagogastroduodenoscopy (EGD) 08/20/19: MAC sedation at [facility] History of kidney transplant ~2008 S/P arteriovenous (AV) fistula creation left arm Family History Mother Family history of diabetes mellitus Father FHx: myocardial infarction, Onset Age: 69 Other No family history of adverse response to anesthesia Denies family history of Crohn's disease Colorectal cancer Ulcerative colitis Social History Smoking Status: Never smoker Second Hand Exposure: No; Hx Alcohol Use: Yes Alcohol type: beer and wine Alcohol Intake Frequency: Monthly or Less Hx Substance Use: No Preferred Language: Colombian Communication Ability: Effective Cloth Classer Required: No Beliefs That Will Affect Care: None marital status: Current Living Situation: Spouse Feels Safe at Home: Yes Assistive Devices: None Review of Systems Review of Systems: Detailed review of system was otherwise unremarkable. Physical Exam Physical Exam: Detect physical exam was not done considering COVID isolation, discussed over telephone with the patient. Results & Data ([facility]) Vital Signs (Past 12 Hours) Vital Signs Temp Pulse Pulse Pulse Resp BP BP 07/23/21 13:50 36.5 C 59 L 138/61 07/23/21 13:39 56 L 142/87 H 07/23/21 13:20 65 131/86 07/23/21 13:00 72 135/84 07/23/21 12:40 55 L 143/80 H 07/23/21 12:20 56 L 131/90 07/23/21 12:00 59 L 147/93 H 07/23/21 11:40 57 L 143/89 H 07/23/21 11:20 55 L 141/89 H 07/23/21 11:00 57 L 144/89 H 07/23/21 10:40 69 158/97 H 07/23/21 10:20 58 L 132/92 07/23/21 10:00 58 L 147/92 H 07/23/21 09:30 36.5 C 62 07/23/21 09:20 59 L 136/73 07/23/21 08:37 55 L 18 154/91 H Pulse Ox 07/23/21 13:50 07/23/21 13:39 07/23/21 13:20 07/23/21 13:00 07/23/21 12:40 07/23/21 12:20 07/23/21 12:00 07/23/21 11:40 07/23/21 11:20 07/23/21 11:00 07/23/21 10:40 07/23/21 10:20 07/23/21 10:00 07/23/21 09:30 07/23/21 09:20 07/23/21 08:37 97 PG Care Time/CCT Total # of Minutes Spent Total Time Spent with Patient: Total time spent is greater than 50% in coordination of care (as documented) at patient's floor/unit and/or counseling patient: Coding Level of Care Code 97928 Inpt Consult Level 4 Diagnoses ESRD (end stage renal disease) on dialysis N18.6; Z99.2 History of kidney transplant Z94.0 Pneumonia due to COVID-19 virus U07.1; J12.82
[2021-07-23] MEDS: CALCIUM CARBONATE 500 MG CHEWABLE TAB PO SCH (17:16)
[2021-07-24] MEDS: HEPARIN SOD 5,000 UNIT/0.5 ML VIAL SQ SCH ×3 (05:39→21:56)
[2021-07-24] MEDS: dexAMETHasone 6 MG in SYRINGE 0 ML IV SCH (08:26)
[2021-07-24] MEDS: guaiFENesin 600 MG TABCR PO SCH ×2 (08:27→21:58)
[2021-07-24] MEDS: METOPROLOL TARTRATE 50 MG TAB PO SCH ×2 (08:28→21:57)
[2021-07-24] MEDS: ATORVASTATIN 40 MG TAB PO SCH (08:28)
[2021-07-24] MEDS: amLODIPine BESYLATE 5 MG TAB PO SCH (08:28)
[2021-07-24] MEDS: VITAMIN B COMPLEX TAB PO SCH (08:29)
[2021-07-24] MEDS: CALCIUM CARBONATE 500 MG CHEWABLE TAB PO SCH ×4 (08:29→17:37)
[2021-07-24] MEDS: PANTOprazole 40 MG TAB PO SCH (08:29)
[2021-07-24] MEDS: NEPHROCAPS PO SCH (08:33)
[2021-07-24] MEDS: INSULIN ASPART 100 UNITS/ML 3 ML PEN SC SCH ×4 (09:49→21:57)
[2021-07-24 10:06] LABS: BUN Creatinine Ratio 7.8 (10-20); Blood Urea Nitrogen 61 mg/dl (7-18); C Reactive Protein 5.28 mg/dl (0-0.29); Carbon Dioxide 25 mmol/L (21-32); Chloride 98 mmol/L (98-107); Est GFR (African American) 8.1 ml/min; Glucose 91 mg/dl (70-99); Potassium 4.7 mmol/L (3.5-5.1); Sodium 134 mmol/L (136-145)
[2021-07-24 10:11] LABS: Basophils # (auto) 0.01 K/uL (0-0.2); Basophils % (auto) 0.1 %; Eosinophils # (auto) 0.02 K/uL (0-0.5); Eosinophils % (auto) 0.3 %; Hemoglobin 12.3 g/dL (14.0-18.0); Immature Granulocytes # (auto) 0.02 K/uL (0.00-0.02); Immature Granulocytes % (auto) 0.3 %; Lymphocytes # (auto) 0.79 K/uL (1.2-3.4); Lymphocytes % (auto) 11.6 %; Mean Corpuscular Hemoglobin 28.2 pg (25-34); Mean Corpuscular Hgb Conc 32.4 g/dL (32-36); Mean Corpuscular Volume 87.2 fL (80-100); Mean Platelet Volume 9.5 fL (7.4-10.4); Monocytes # (auto) 0.44 K/uL (0.11-0.59); Monocytes % (auto) 6.5 %; Neutrophils # (auto) 5.53 K/uL (1.4-6.5); Neutrophils % (auto) 81.2 %; Platelet Count 168 K/uL (130-400); RDW Coefficient of Variation 15.4 % (11.5-14.5); RDW Standard Deviation 49.1 fL (36.4-46.3); Red Blood Count 4.36 M/uL (4.7-6.1); White Blood Count 6.81 K/uL (4.8-10.8)
--- NOTE | 2021-07-24 10:36 | Nephrology Progress Note ---
Date of Service July 24, 2021 Assessment & Plan (1) ESRD (end stage renal disease) on dialysis: (2) History of kidney transplant: (3) Pneumonia due to COVID-19 virus: Plan: ESRD, on hemodialysis, Friday, Friday, Friday. Last dialysis was last Friday add the COVID isolation clinic after admitted to the hospital more than a week for COVID pneumonia and discharged last week. Admitted to the hospital after dialysis with worsening shortness of breath and chest x-ray also showed worsening viral pneumonia. Overall doing better, no respiratory distress with activity. had dialysis yesterday with 3 L UF, weight 3 kg below EDW. -- dialysis tomorrow, will aim for dry weight 95-96 kg -- left arm nephrology precaution, dose medications for GFR less than 10 -- continue on renal vitamin and phosphate binder. Will follow Admission and Anticipated Discharge Date Admission Date: July 23, 2021 Ang Rodríguez was seen and examined in his room this morning. Overall he is feeling much better, oxygen requirement is lower, he can walk to and from bathroom without getting short of breath. Continues to have cough but no shortness of breath, fever. Had dialysis yesterday and had 3 L UF, he is 3 kg below his dry weight but blood pressure stable and overall feeling well. Review of Systems Review of Systems: Detailed review of system was otherwise unremarkable. Physical Exam Constitutional: well developed and well nourished; no acute distress Respiratory: normal respiratory effort and + cough; no respiratory distress Auscultation: lungs clear to auscultation bilaterally Cardiovascular: RRR, no murmur, no edema Extremities: + AV fistula ( Left brachiocephalic AV fistula with thrill and bruit.) Neurologic: moves all extremities and awake; not confused Psychiatric: A+Ox3, euthymic affect Results & Data ([facility]) Vital Signs (Past 12 Hours) Vital Signs Temp Pulse Resp BP Pulse Ox 07/24/21 07:26 36.5 C 57 L 20 127/81 98 PG Care Time/CCT Total # of Minutes Spent Total Time Spent with Patient: Total time spent is greater than 50% in coordination of care (as documented) at patient's floor/unit and/or counseling patient: Coding Level of Care Code 94986 Subseq Hosp Care Lvl 3 Diagnoses ESRD (end stage renal disease) on dialysis N18.6; Z99.2 History of kidney transplant Z94.0 Pneumonia due to COVID-19 virus U07.1; J12.82
[2021-07-24] MEDS: SODIUM POLYSTYRENE SULFONATE 15G/60ML SUSP PO SCH (13:48)
--- NOTE | 2021-07-24 21:42 | Hospitalist Progress Note ---
Date of Service July 24, 2021 Assessment & Plan (1) Acute respiratory failure with hypoxia: Plan: 2nd COVID-19 pneumonia. can't rule out element of pulmonary edema from ESRD. O2 requirements have decreased from admission - either 2nd to improved pneumonia and/or improved pulm edema. (2) Pneumonia due to 2019-nCoV: Plan: improved today - on <1 L NC O2 at this time day #3 dexamethasone 6mg daily not a candidate for Remdesivir treatment crp improved flutter valve, IS, etc supportive care (3) ESRD (end stage renal disease) on dialysis: Plan: [facility] nephrology managing HD schedule of M/W/F appreciate their assistance (4) Hyperparathyroidism: Plan: Secondary to ESRD Continue VELPHORO (5) Hypercholesterolemia: Plan: Continue atorvastatin LFTs wnl (6) Hypertension: Plan: Continue amlodipine stable, controlled (7) Anemia due to chronic kidney disease: Plan: stable (8) DVT prophylaxis: Plan: heparin TID (9) Diabetes mellitus type 2 in nonobese: Plan: controlled at this time novolog SSI Plan: left message for 07/23 and 07/24 on voicemail Admission and Anticipated Discharge Date Admission Date: July 23, 2021 Subjective patient overall with a very good day feeling well mild cough - sputum production has stopped only mild MARTE no dyspnea/orthopnea at rest eating well Review of Systems Review of Systems: gen - no fever/chills; good energy CV - no chest pain pulm - no hemoptysis GI - no N/V; some diarrhea Physical Exam Physical Exam: gen - NAD, occasional cough, looks good neck - no JVD heart - RRR, s1 s2, 2/6 AMBROSIO LSB lungs - minimal rales (dry) bases, no increased wob, no wheeze abd - soft NT ND BS+ ext - no edema, pulses 2+ b/l psych - a/o x 3 Results & Data Results & Data ([facility]) Vital Signs (Past 12 Hours) Vital Signs Temp Pulse Resp BP Pulse Ox 07/24/21 15:08 36.4 C L 61 18 152/85 H 97 07/24/21 11:48 92 Laboratory Results Laboratory Results - last 24 hr 07/24/21 07/24/21 07/24/21 08:24 08:52 08:52 WBC 6.81 RBC 4.36 L Hgb 12.3 L Hct 38.0 L MCV 87.2 MCH 28.2 MCHC 32.4 RDW Std Deviation 49.1 H RDW Coeff of Lisseth 15.4 H Plt Count 168 MPV 9.5 Immature Gran % (Auto) 0.3 Neut % (Auto) 81.2 Lymph % (Auto) 11.6 Bleckley % (Auto) 6.5 Eos % (Auto) 0.3 Baso % (Auto) 0.1 Neut # (Auto) 5.53 Lymph # (Auto) 0.79 L Bleckley # (Auto) 0.44 Eos # (Auto) 0.02 Baso # (Auto) 0.01 Immature Gran # (Auto) 0.02 Sodium 134 L Potassium 4.7 Chloride 98 Carbon Dioxide 25 Anion Gap 12.0 H BUN 61 H Creatinine 7.76 H* D Est Cr Clr Drug Dosing Not Reportable Est GFR ( Amer) 8.1 Est GFR (Non-Af Amer) 7.0 BUN/Creatinine Ratio 7.8 L Glucose 91 POC Glucose 95 Calcium 9.0 C-Reactive Protein 5.28 H 07/24/21 07/24/21 07/24/21 12:03 17:47 20:47 WBC RBC Hgb Hct MCV MCH MCHC RDW Std Deviation RDW Coeff of Lisseth Plt Count MPV Immature Gran % (Auto) Neut % (Auto) Lymph % (Auto) Bleckley % (Auto) Eos % (Auto) Baso % (Auto) Neut # (Auto) Lymph # (Auto) Bleckley # (Auto) Eos # (Auto) Baso # (Auto) Immature Gran # (Auto) Sodium Potassium Chloride Carbon Dioxide Anion Gap BUN Creatinine Est Cr Clr Drug Dosing Est GFR ( Amer) Est GFR (Non-Af Amer) BUN/Creatinine Ratio Glucose POC Glucose 161 H 119 H 229 H Calcium C-Reactive Protein PG Care Time/CCT Total # of Minutes Spent Total Time Spent with Patient: Total time spent is greater than 50% in coordination of care (as documented) at patient's floor/unit and/or counseling patient: Coding Level of Care Code 99588 Subseq Hosp Care Lvl 2 Diagnoses Acute respiratory failure with hypoxia J96.01 Pneumonia due to 2019-nCoV U07.1; J12.82 ESRD (end stage renal disease) on dialysis N18.6; Z99.2 Hyperparathyroidism E21.3 Hypercholesterolemia E78.00 Hypertension I10 Anemia due to chronic kidney disease N18.9; D63.1 DVT prophylaxis Z29.9 Diabetes mellitus type 2 in nonobese E11.9
[2021-07-25] MEDS: DEXTROMETHORPHAN POLYMR COMPLX 30 MG/5 ML UDP PO PRN (04:21)
[2021-07-25] MEDS: HEPARIN SOD 5,000 UNIT/0.5 ML VIAL SQ SCH ×3 (05:00→21:51)
--- NOTE | 2021-07-25 07:56 | XRay Report ---
XR chest 1V portable HISTORY: Dyspnea COMPARISON: Chest 07/23/2021. FINDINGS: Slight progression of the multifocal patchy bilateral airspace opacities consistent with a viral pneumonia. The heart remains enlarged. No pleural effusions. No pneumothorax. IMPRESSION: Extensive multifocal bilateral airspace opacities consistent with a viral pneumonia. This has slightl y progressed. ACT 112: Negative or not required by law. Electronically signed by: Bc Shaikh M.D. 07/25/2021 7:55 AM
[2021-07-25] MEDS: BENZONATATE 100 MG CAPSULE PO PRN (08:17)
[2021-07-25] MEDS: guaiFENesin 600 MG TABCR PO SCH ×2 (08:22→20:02)
[2021-07-25] MEDS: METOPROLOL TARTRATE 50 MG TAB PO SCH ×2 (08:50→20:02)
[2021-07-25] MEDS: amLODIPine BESYLATE 5 MG TAB PO SCH (08:50)
[2021-07-25] MEDS: ATORVASTATIN 40 MG TAB PO SCH (08:51)
[2021-07-25] MEDS: VITAMIN B COMPLEX TAB PO SCH (08:51)
[2021-07-25] MEDS: NEPHROCAPS PO SCH (08:51)
[2021-07-25] MEDS: PANTOprazole 40 MG TAB PO SCH (08:52)
[2021-07-25] MEDS: CALCIUM CARBONATE 500 MG CHEWABLE TAB PO SCH ×3 (08:54→17:43)
[2021-07-25] MEDS ORDERED: CEFEPIME 1,000 MG in SYRINGE 0 ML IV ONE (09:00)
[2021-07-25] MEDS ORDERED: CEFEPIME 1,000 MG in SYRINGE 0 ML IV SCH (09:00)
[2021-07-25] MEDS: dexAMETHasone 10 MG in SYRINGE 0 ML IV SCH (09:03)
[2021-07-25] MEDS: DOXYCYCLINE HYCLATE 100 MG in DEXTROSE 5% 100 ML IV SCH ×2 (09:12→21:50)
[2021-07-25] MEDS: INSULIN ASPART 100 UNITS/ML 3 ML PEN SC SCH ×4 (09:17→21:35)
--- NOTE | 2021-07-25 09:59 | Nephrology Progress Note ---
Date of Service July 25, 2021 Assessment & Plan (1) ESRD (end stage renal disease) on dialysis: (2) History of kidney transplant: (3) Pneumonia due to COVID-19 virus: Plan: ESRD, on hemodialysis, Friday, Friday, Friday. Last dialysis was last Friday add the COVID isolation clinic after admitted to the hospital more than a week for COVID pneumonia and discharged last week. Admitted to the hospital after dialysis with worsening shortness of breath and chest x-ray also showed worsening viral pneumonia. Worsening respiratory status, now on high flow NC, FiO2 40%. -- dialysis now , aim for 3 L UF with target weight 94.5 to 95 kg -- left arm nephrology precaution, dose medications for GFR less than 10 -- continue on renal vitamin and phosphate binder. Will follow Admission and Anticipated Discharge Date Admission Date: July 23, 2021 Ang Rodríguez was seen and examined in his room during HD this morning. Overnight respiratory status worsened,more cough and SOB, requiring high flow NC O2, FiO2 40%, witing to be Transferred to [facility].Tolerating HD, blood pressure stable. Review of Systems Review of Systems: Detailed review of system was otherwise unremarkable. Physical Exam Constitutional: + acute distress and + ill appearing Respiratory: + cough Auscultation: + diminished lung sounds and + crackles Cardiovascular: RRR, no murmur, no edema Extremities: + AV fistula ( Left brachiocephalic AV fistula with thrill and bruit.) Neurologic: moves all extremities and awake; no focal motor deficits and not confused Psychiatric: A+Ox3, euthymic affect Results & Data ([facility]) Vital Signs (Past 12 Hours) Vital Signs Temp Pulse Pulse Pulse Resp BP BP 07/25/21 09:30 68 146/88 H 07/25/21 09:15 36.4 C L 70 07/25/21 08:38 70 24 07/25/21 08:30 07/25/21 07:30 36.4 C L 66 22 161/87 H 07/25/21 06:42 07/25/21 04:50 07/25/21 04:45 07/24/21 22:43 158/88 H Pulse Ox 07/25/21 09:30 07/25/21 09:15 07/25/21 08:38 95 07/25/21 08:30 93 07/25/21 07:30 95 07/25/21 06:42 92 07/25/21 04:50 93 07/25/21 04:45 85 L 07/24/21 22:43 93 PG Care Time/CCT Total # of Minutes Spent Total Time Spent with Patient: Total time spent is greater than 50% in coordination of care (as documented) at patient's floor/unit and/or counseling patient: Coding Level of Care Code 10935 Subseq Hosp Care Lvl 3 Diagnoses ESRD (end stage renal disease) on dialysis N18.6; Z99.2 History of kidney transplant Z94.0 Pneumonia due to COVID-19 virus U07.1; J12.82
[2021-07-25] MEDS: ONDANSETRON INJ 2 MG/ML 2 ML VIAL IV PRN (14:44)
--- NOTE | 2021-07-25 20:16 | Hospitalist Progress Note ---
Date of Service July 25, 2021 Assessment & Plan (1) Acute respiratory failure with hypoxia: Plan: 2nd COVID-19 pneumonia - main factor. Again suspect an element of pulmonary edema from ESRD. Patient was transferred from 3W COVID unit to 2East COVID unit. Following HD his O2 requirements improvement drastically - from a high of 45 L and 100% FiO2, down to 12 Liters. This would argue against some pulmonary edema given that drastic of an improvement following volume removal. It is odd, however, in that he is well below target dry weight. LV dysfunction? Steroids causing fluid retention? other? Ultimately, he simply could be developing ARDS from his COVID. Check troponin, crp, procal in am. Elected to cover for bacterial superinfection given his severe acute worsening. Started cefepime/doxy. Defer on MRSA coverage - MRSA swab neg. Consider echo (last echo was in [place] in 2019 - nl LV function then, severe LVH). (2) Pneumonia due to 2019-nCoV: Plan: had been improving now much worse - see #1 above. [facility] day #4 dexamethasone 6mg daily. not a candidate for Remdesivir treatment crp had improved - repeat am. check trop, crp, procal am. flutter valve, IS, etc supportive care. PRONE highly encouraged; staff aware. consider repeat cxr am. not a candidate for Toci or Baricitinib (3) ESRD (end stage renal disease) on dialysis: Plan: [facility] nephrology managing HD schedule of M/W/F appreciate their assistance s/p HD today -- 2.5 L UF obtained (4) Hyperparathyroidism: Plan: Secondary to ESRD Continue VELPHORO (5) Hypercholesterolemia: Plan: Continue atorvastatin LFTs had been wnl (6) Hypertension: Plan: Continue amlodipine stable, controlled (7) Anemia due to chronic kidney disease: Plan: stable (8) DVT prophylaxis: Plan: heparin TID recent CTA chest neg for PE (9) Diabetes mellitus type 2 in nonobese: Plan: controlled at this time novolog SSI Plan: left message for 07/23 and 07/24 on voicemail left TWO messages for today (07/25) regarding clincial worsening the voicemail message does state it is Susana Levy - I do hope she is receiving my messages will inquire with patient if is indeed up-to-date care d/w Dr Awad critical care time 60 min; complex care coordination; significant acute resp changes requiring rapid actions & care Admission and Anticipated Discharge Date Admission Date: July 23, 2021 Subjective called by nursing staff early this am that patient started to require more O2 during the night ultimately was on 12+ liters of O2 and was in mild distress respiratory changed him to highflow NC when I arrived on the COVID unit he was satting 88% on 85% FiO2 and 40 L flow he was tachypneic and reported feeling very poorly he stated that his dyspnea began somewhat acutely he had ambulated to the BR to have a bowel movement while finishing up he began to have worsening dyspnea it has been severe since then prior to seeing him I alerted [facility] nephr, Dr Awad, of today's events he was being actively dialyzed when I saw him continues to cough no sputum poor appetite this am no chest pain no calf / leg pain Review of Systems Review of Systems: gen - no fever/chills cv - no chest pain pulm - cough, congestion, dyspnea GI - no N/V Physical Exam Physical Exam: gen - looks much worse today, tachypneic, mild retractions neck - no obvious JVD heart - RRR, s1 s2, 2/6 AMBROSIO LSB lungs - diffuse rales b/l anteriorly and posteriorly; increased work of breathing with retractions, tachypnea abd - soft NT ND BS+ ext - no edema, pulses 2+ b/l; AV fistula LUE psych - a/o x 3, anxious Results & Data Results & Data ([facility]) Vital Signs (Past 12 Hours) Vital Signs Temp Pulse Pulse Pulse Resp BP BP 07/25/21 19:42 36.8 C 74 20 07/25/21 15:41 36.5 C 70 19 116/64 07/25/21 13:42 36.6 C 70 22 120/68 07/25/21 13:38 70 20 07/25/21 13:15 36.5 C 60 104/66 07/25/21 13:00 60 97/65 L 07/25/21 12:20 60 110/71 07/25/21 12:00 60 102/61 07/25/21 11:44 60 101/58 L 07/25/21 11:40 59 L 87/50 L 07/25/21 11:20 61 96/60 L 07/25/21 11:00 61 104/61 07/25/21 10:50 62 20 07/25/21 10:40 63 107/63 07/25/21 10:20 63 106/79 07/25/21 10:00 69 120/78 07/25/21 09:40 65 145/88 H 07/25/21 09:30 68 146/88 H 07/25/21 09:15 36.4 C L 70 07/25/21 08:38 70 24 07/25/21 08:30 Pulse Ox 07/25/21 19:42 94 07/25/21 15:41 94 07/25/21 13:42 90 07/25/21 13:38 93 07/25/21 13:15 07/25/21 13:00 07/25/21 12:20 07/25/21 12:00 07/25/21 11:44 07/25/21 11:40 07/25/21 11:20 07/25/21 11:00 07/25/21 10:50 93 07/25/21 10:40 07/25/21 10:20 07/25/21 10:00 07/25/21 09:40 07/25/21 09:30 07/25/21 09:15 07/25/21 08:38 95 07/25/21 08:30 93 Laboratory Results Laboratory Results - last 24 hr 07/25/21 07/25/21 07/25/21 08:23 12:35 12:47 POC Glucose 71 102 H Nasal Screen MRSA (PCR) Negative 07/25/21 07/25/21 07/25/21 16:39 20:06 20:08 POC Glucose 144 H 377 H* 170 H Nasal Screen MRSA (PCR) 07/25/21 20:12 POC Glucose 166 H Nasal Screen MRSA (PCR) PG Care Time/CCT Total # of Minutes Spent Total Time Spent with Patient: Total time spent is greater than 50% in coordination of care (as documented) at patient's floor/unit and/or counseling patient: Critical Care Time: Yes (60) Coding Level of Care Code None Diagnoses Acute respiratory failure with hypoxia J96.01 Pneumonia due to 2019-nCoV U07.1; J12.82 ESRD (end stage renal disease) on dialysis N18.6; Z99.2 Hyperparathyroidism E21.3 Hypercholesterolemia E78.00 Hypertension I10 Anemia due to chronic kidney disease N18.9; D63.1 DVT prophylaxis Z29.9 Diabetes mellitus type 2 in nonobese E11.9 Additional Codes Critical Care Time - Critical Care Time: Yes ([id number])
[2021-07-26] MEDS: DEXTROMETHORPHAN POLYMR COMPLX 30 MG/5 ML UDP PO PRN ×2 (00:46→09:03)
[2021-07-26] MEDS: HEPARIN SOD 5,000 UNIT/0.5 ML VIAL SQ SCH ×3 (05:35→21:34)
[2021-07-26 06:42] LABS: Eosinophils # (auto) 0.04 K/uL (0-0.5); Eosinophils % (auto) 0.5 %; Hematocrit (blood only) 36.4 % (42-52); Hemoglobin 11.7 g/dL (14.0-18.0); Immature Granulocytes # (auto) 0.03 K/uL (0.00-0.02); Immature Granulocytes % (auto) 0.3 %; Lymphocytes # (auto) 0.48 K/uL (1.2-3.4); Lymphocytes % (auto) 5.4 %; Mean Corpuscular Hemoglobin 28.3 pg (25-34); Mean Corpuscular Hgb Conc 32.1 g/dL (32-36); Mean Corpuscular Volume 88.1 fL (80-100); Mean Platelet Volume 9.4 fL (7.4-10.4); Monocytes % (auto) 5.7 %; Neutrophils # (auto) 7.78 K/uL (1.4-6.5); Neutrophils % (auto) 88.1 %; Platelet Count 138 K/uL (130-400); RDW Coefficient of Variation 15.8 % (11.5-14.5); Red Blood Count 4.13 M/uL (4.7-6.1); White Blood Count 8.83 K/uL (4.8-10.8)
[2021-07-26 07:26] LABS: BUN Creatinine Ratio 8.4 (10-20); Blood Urea Nitrogen 71 mg/dl (7-18); Calcium 9.1 mg/dl (8.5-10.1); Carbon Dioxide 30 mmol/L (21-32); Chloride 96 mmol/L (98-107); Est GFR (African American) 7.2 ml/min; Est GFR (Non-African American) 6.2 ml/min; Glucose 96 mg/dl (70-99); Potassium 4.6 mmol/L (3.5-5.1); Sodium 135 mmol/L (136-145); Troponin I < 0.015 ng/ml (0-0.045)
[2021-07-26] MEDS: INSULIN ASPART 100 UNITS/ML 3 ML PEN SC SCH ×4 (07:37→22:32)
[2021-07-26] MEDS: DOXYCYCLINE HYCLATE 100 MG in DEXTROSE 5% 100 ML IV SCH ×2 (09:01→21:33)
[2021-07-26] MEDS: dexAMETHasone 10 MG in SYRINGE 0 ML IV SCH (09:02)
[2021-07-26] MEDS: CEFEPIME 500 MG in SYRINGE 0 ML IV SCH (09:02)
[2021-07-26] MEDS: CALCIUM CARBONATE 500 MG CHEWABLE TAB PO SCH ×3 (09:03→18:37)
[2021-07-26] MEDS: PANTOprazole 40 MG TAB PO SCH (09:04)
[2021-07-26] MEDS: NEPHROCAPS PO SCH (09:04)
[2021-07-26] MEDS: ATORVASTATIN 40 MG TAB PO SCH (09:04)
[2021-07-26] MEDS: METOPROLOL TARTRATE 50 MG TAB PO SCH ×2 (09:04→21:34)
[2021-07-26] MEDS: amLODIPine BESYLATE 5 MG TAB PO SCH (09:04)
[2021-07-26] MEDS: VITAMIN B COMPLEX TAB PO SCH (09:04)
[2021-07-26] MEDS: guaiFENesin 600 MG TABCR PO SCH ×2 (09:04→21:34)
[2021-07-26] MEDS: SODIUM POLYSTYRENE SULFONATE 15G/60ML SUSP PO SCH (09:05)
--- NOTE | 2021-07-26 09:52 | XRay Report ---
XR chest 1V portable CLINICAL HISTORY: COVID-19 pneumonia, ?pulm edema COMPARISON STUDY: Chest CT July 21, 2021. Chest radiograph July 25, 2021 FINDINGS: There is no pneumothorax or pleural effusion. Cardiomegaly is unchanged. Extensive bilatera l airspace opacities have progressed since prior exam. IMPRESSION: Progression of extensive bilateral airspace opacities consistent with viral pneumonia. ACT 112: Negative or not required by law. Electronically signed by: Barrie Romero M.D. 07/26/2021 9:50 AM
--- NOTE | 2021-07-26 10:25 | Nephrology Progress Note ---
Date of Service July 26, 2021 Assessment & Plan (1) ESRD (end stage renal disease) on dialysis: (2) History of kidney transplant: (3) Pneumonia due to COVID-19 virus: Plan: ESRD, on hemodialysis, Friday, Friday, Friday. Last dialysis was last Friday add the [facility] isolation clinic after admitted to the hospital more than a week for COVID pneumonia and discharged last week. Admitted to the hospital after dialysis with worsening shortness of breath and chest x-ray also showed worsening viral pneumonia. No significant improvement in respiratory status. chest x-ray this morning looks slightly worsened yesterday. Although he normally gains 3-4 kg between treatment and tolerates 3-4 L of UF however considering his worsening respiratory status and lung finding from COVID, keeping him close to new dry weight might help with respiratory status. -- Will do extra dialysis treatment today mainly for UF, will try 2 L of UF over 3 hours, with target weight 94.5 to 95 kg. Will plan for dialysis tomorrow as his regular schedule as well. -- left arm nephrology precaution, dose medications for GFR less than 10 -- continue on renal vitamin and phosphate binder. Will follow Admission and Anticipated Discharge Date Admission Date: July 23, 2021 Ang Rodríguez was seen and examined in his room this morning. He continues to feel poorly, denies any acute respiratory distress, currently on 15 L OxyMask with saturation 94%. Had dialysis yesterday, had 2.5 L UF, currently he is 1.5 kg above the weight after dialysis yesterday. blood pressure acceptable. Review of Systems Review of Systems: Detailed review of system was otherwise unremarkable. Physical Exam Physical Exam: Detect physical exam was not done considering COVID isolation, discussed over telephone with the patient. Constitutional: + acute distress and + ill appearing Respiratory: normal respiratory effort and + cough; no respiratory distress Auscultation: + diminished lung sounds and + crackles Cardiovascular: RRR, no murmur, no edema Extremities: + AV fistula ( Left brachiocephalic AV fistula with thrill and bruit.) Neurologic: awake; no focal motor deficits and not confused Psychiatric: A+Ox3, euthymic affect Results & Data ([facility]) Vital Signs (Past 12 Hours) Vital Signs Temp Pulse Pulse Resp BP Pulse Ox 07/26/21 07:14 36.7 C 75 19 143/82 H 94 07/26/21 03:18 36.8 C 75 18 139/80 85 L 07/25/21 22:47 36.9 C 70 20 143/91 H 96 PG Care Time/CCT Total # of Minutes Spent Total Time Spent with Patient: Total time spent is greater than 50% in coordination of care (as documented) at patient's floor/unit and/or counseling patient: Coding Level of Care Code 57414 Subseq Hosp Care Lvl 3 Diagnoses ESRD (end stage renal disease) on dialysis N18.6; Z99.2 History of kidney transplant Z94.0 Pneumonia due to COVID-19 virus U07.1; J12.82
--- NOTE | 2021-07-26 20:06 | Hospitalist Progress Note ---
Date of Service July 26, 2021 Assessment & Plan (1) Acute respiratory failure with hypoxia: Plan: 2nd COVID-19 pneumonia - main factor. Pulmonary edema from ESRD also contributing - s/p HD yesterday and again today with significant improvement in O2 requirements (from a high of 45 L and 100% FiO2, down to 15 L during my visit). Exam much improved today; distress resolved. Steroids causing fluid retention? Pulm HTN leading to pulm edema? other? Appreciate nephrology assistance. no evidence of ACS - troponin neg today Cannot rule out developing ARDS from his COVID. Elected to cover for bacterial superinfection given his severe acute worsening yesterday. Started cefepime/doxy then - thus, day #2 today of IV abx (procal, crp both elevated). Defer on MRSA coverage - MRSA swab neg. Steroids yesterday increased to 10mg/day to cover for development of ARDS. Consider echo (last echo was in [place] in 2019 - nl LV function then, severe LVH). (2) Pneumonia due to 2019-nCoV: Plan: had been improving then much worse on 07/25/21. transferred to [facility] COVID wing/tele on 07/25 from [place]. day #5 dexamethasone today - dose was increased from 6 to 10 on 07/25/21 to cover for possibility of developing ARDS. not a candidate for Remdesivir treatment crp and procal both high - abx initiated on 07/25/21 - continue cefepime/doxy - day #2. flutter valve, IS, etc supportive care. unfortunately cannot prone - he attempted w/o succcess. not a candidate for Toci or Baricitinib (3) ESRD (end stage renal disease) on dialysis: Plan: [facility] [place] [facility] managing HD schedule of M/W/F appreciate their assistance s/p HD yesterday and again today see #1 above (4) Hyperparathyroidism: Plan: Secondary to ESRD Continue VELPHORO (5) Hypercholesterolemia: Plan: Continue atorvastatin LFTs had been wnl (6) Hypertension: Plan: Continue amlodipine stable, controlled (7) Anemia due to chronic kidney disease: Plan: stable (8) DVT prophylaxis: Plan: heparin TID recent CTA chest neg for PE (9) Diabetes mellitus type 2 in nonobese: Plan: controlled at this time novolog SSI Plan: left message for 07/23 and 07/24 on voicemail left 2 messages for 07/25 on voicemail Rachel - daughter - [phone] - extensively updated by phone this evening Admission and Anticipated Discharge Date Admission Date: July 23, 2021 Subjective pt feeling better today less dyspnea still with cough - no sputum appetite good anxious about the events of last 24 hours had additional HD today for presumed volume overload no new complaints he cannot prone - he tried - simply can't do it using flutter, etc tele overnight wnl Review of Systems Review of Systems: gen - no fevers/chills CV - no cp pulm - no sputum, dyspnea better, ongoing cough, +MARTE GI - no N/V/abd pain; diarrhea ongoing Physical Exam Physical Exam: gen - looks much better today; no increased WOB or dyspnea; talks in complete sentences neck - no obvious JVD heart - RRR, s1 s2, 2/6 AMBROSIO LSB lungs - fine dry rales anterior b/l chest; fine dry rales b/l posterior bases; no increased WOB abd - soft NT ND BS+ ext - no edema, pulses 2+ b/l; AV fistula LUE psych - a/o x 3 skin - no rash Results & Data Results & Data ([facility]) Vital Signs (Past 12 Hours) Vital Signs Temp Pulse Pulse Resp BP BP Pulse Ox 07/26/21 19:24 36.4 C L 70 24 135/76 96 07/26/21 17:37 36.6 C 58 L 137/84 07/26/21 17:10 57 L 131/83 07/26/21 16:40 58 L 136/84 07/26/21 16:20 58 L 129/98 07/26/21 16:00 60 121/90 07/26/21 15:40 59 L 139/87 07/26/21 15:20 65 141/85 H 07/26/21 15:00 65 158/86 H 07/26/21 14:40 62 147/89 H 07/26/21 14:20 53 L 115/48 L 07/26/21 14:05 60 148/91 H 07/26/21 14:00 36.6 C 70 07/26/21 11:07 36.6 C 69 24 138/85 90 Laboratory Results Laboratory Results - last 24 hr 07/25/21 07/25/2121 20:06 20:08 20:12 WBC RBC Hgb Hct MCV MCH MCHC RDW Std Deviation RDW Coeff of Lisseth Plt Count MPV Immature Gran % (Auto) Neut % (Auto) Lymph % (Auto) York % (Auto) Eos % (Auto) Baso % (Auto) Neut # (Auto) Lymph # (Auto) York # (Auto) Eos # (Auto) Baso # (Auto) Immature Gran # (Auto) Sodium Potassium Chloride Carbon Dioxide Anion Gap BUN Creatinine Est Cr Clr Drug Dosing Est GFR ( Amer) Est GFR (Non-Af Amer) BUN/Creatinine Ratio Glucose POC Glucose 377 H* 170 H 166 H Calcium Troponin I C-Reactive Protein Procalcitonin 07/26/21 07/26/21 07/26/21 05:39 05:39 05:39 WBC 8.83 RBC 4.13 L Hgb 11.7 L Hct 36.4 L MCV 88.1 MCH 28.3 MCHC 32.1 RDW Std Deviation 51.0 H RDW Coeff of Lisseth 15.8 H Plt Count 138 MPV 9.4 Immature Gran % (Auto) 0.3 Neut % (Auto) 88.1 Lymph % (Auto) 5.4 York % (Auto) 5.7 Eos % (Auto) 0.5 Baso % (Auto) 0.0 Neut # (Auto) 7.78 H Lymph # (Auto) 0.48 L York # (Auto) 0.50 Eos # (Auto) 0.04 Baso # (Auto) 0.00 Immature Gran # (Auto) 0.03 H Sodium 135 L Potassium 4.6 Chloride 96 L Carbon Dioxide 30 Anion Gap 9.0 BUN 71 H Creatinine 8.51 H* D Est Cr Clr Drug Dosing Not Reportable Est GFR ( Amer) 7.2 Est GFR (Non-Af Amer) 6.2 BUN/Creatinine Ratio 8.4 L Glucose 96 POC Glucose Calcium 9.1 Troponin I < 0.015 C-Reactive Protein 21.20 H Procalcitonin 6.29 H 07/26/21 07/26/21 07:12 11:04 WBC RBC Hgb Hct MCV MCH MCHC RDW Std Deviation RDW Coeff of Lisseth Plt Count MPV Immature Gran % (Auto) Neut % (Auto) Lymph % (Auto) York % (Auto) Eos % (Auto) Baso % (Auto) Neut # (Auto) Lymph # (Auto) York # (Auto) Eos # (Auto) Baso # (Auto) Immature Gran # (Auto) Sodium Potassium Chloride Carbon Dioxide Anion Gap BUN Creatinine Est Cr Clr Drug Dosing Est GFR ( Amer) Est GFR (Non-Af Amer) BUN/Creatinine Ratio Glucose POC Glucose 100 H 157 H Calcium Troponin I C-Reactive Protein Procalcitonin PG Care Time/CCT Total # of Minutes Spent Total Time Spent with Patient: Total time spent is greater than 50% in coordination of care (as documented) at patient's floor/unit and/or counseling patient: Coding Level of Care Code 58318 Subseq Hosp Care Lvl 3 Diagnoses Acute respiratory failure with hypoxia J96.01 Pneumonia due to 2019-nCoV U07.1; J12.82 ESRD (end stage renal disease) on dialysis N18.6; Z99.2 Hyperparathyroidism E21.3 Hypercholesterolemia E78.00 Hypertension I10 Anemia due to chronic kidney disease N18.9; D63.1 DVT prophylaxis Z29.9 Diabetes mellitus type 2 in nonobese E11.9
[2021-07-27] MEDS: DEXTROMETHORPHAN POLYMR COMPLX 30 MG/5 ML UDP PO PRN ×2 (06:04→19:27)
[2021-07-27] MEDS: HEPARIN SOD 5,000 UNIT/0.5 ML VIAL SQ SCH ×3 (06:14→21:33)
[2021-07-27] MEDS: ATORVASTATIN 40 MG TAB PO SCH (08:30)
[2021-07-27] MEDS: DOXYCYCLINE HYCLATE 100 MG in DEXTROSE 5% 100 ML IV SCH ×2 (08:30→19:25)
[2021-07-27] MEDS: NEPHROCAPS PO SCH (08:30)
[2021-07-27] MEDS: amLODIPine BESYLATE 5 MG TAB PO SCH (08:30)
[2021-07-27] MEDS: METOPROLOL TARTRATE 50 MG TAB PO SCH ×2 (08:31→19:27)
[2021-07-27] MEDS: guaiFENesin 600 MG TABCR PO SCH ×2 (08:31→19:27)
[2021-07-27] MEDS: VITAMIN B COMPLEX TAB PO SCH (08:31)
[2021-07-27] MEDS: dexAMETHasone 10 MG in SYRINGE 0 ML IV SCH (08:32)
[2021-07-27] MEDS: CEFEPIME 500 MG in SYRINGE 0 ML IV SCH (08:32)
[2021-07-27] MEDS: PANTOprazole 40 MG TAB PO SCH (08:32)
[2021-07-27] MEDS: CALCIUM CARBONATE 500 MG CHEWABLE TAB PO SCH ×3 (08:35→17:01)
[2021-07-27] MEDS: INSULIN ASPART 100 UNITS/ML 3 ML PEN SC SCH ×4 (09:52→21:40)
[2021-07-27] MEDS: INSULIN GLARGINE SOLOSTAR 100 UNITS/ML 3 ML PEN SC SCH (10:50)
--- NOTE | 2021-07-27 12:28 | Nephrology Progress Note ---
Date of Service July 27, 2021 Assessment & Plan (1) ESRD (end stage renal disease) on dialysis: (2) History of kidney transplant: (3) Pneumonia due to COVID-19 virus: Plan: ESRD, on hemodialysis, Friday, Friday, Friday. Last dialysis was last Friday add the COVID isolation clinic after admitted to the hospital more than a week for COVID pneumonia and discharged last week. Admitted to the hospital after dialysis with worsening shortness of breath and chest x-ray also showed worsening viral pneumonia. respiratory status slightly improved overnight, had 2 L extra UF yesterday. -- Currently tolerating dialysis, plan for 2.5 L of UF, so far tolerating well, blood pressure remains acceptable. Overall clinically seems slightly better. Aim for EDW 94.5 to 95 kg. May need dialysis again tomorrow. -- left arm nephrology precaution, dose medications for GFR less than 10 -- continue on renal vitamin and phosphate binder. Will follow Admission and Anticipated Discharge Date Admission Date: July 23, 2021 Ang Rodríguez was seen and examined in his room during hemodialysis this morning. He is feeling slightly better today, continues to have cough but denies any acute respiratory distress, currently on 12 L O2 via NC with saturation 94%. tolerating hemodialysis, blood pressure stable. Review of Systems Review of Systems: Detailed review of system was otherwise unremarkable. Physical Exam Physical Exam: Detect physical exam was not done considering COVID isolation, discussed over telephone with the patient. Constitutional: well developed, well nourished and + ill appearing Respiratory: normal respiratory effort and + cough; no respiratory distress Auscultation: + diminished lung sounds and + crackles Cardiovascular: RRR, no murmur, no edema Extremities: + AV fistula ( Left brachiocephalic AV fistula with thrill and bruit.) Neurologic: awake; no focal motor deficits and not confused Psychiatric: A+Ox3, euthymic affect Results & Data ([facility]) Vital Signs (Past 12 Hours) Vital Signs Temp Pulse Pulse Resp BP BP Pulse Ox 07/27/21 12:00 54 L 114/65 07/27/21 11:40 55 L 116/68 07/27/21 11:20 56 L 116/69 07/27/21 11:00 55 L 116/68 07/27/21 10:40 56 L 117/69 07/27/21 10:20 58 L 117/72 07/27/21 10:00 59 L 115/76 07/27/21 09:40 64 130/78 07/27/21 09:20 65 133/81 07/27/21 09:05 36.6 C 65 07/27/21 08:00 60 07/27/21 07:54 36.6 C 65 20 153/90 H 96 07/27/21 03:19 36.6 C 63 22 145/87 H 94 PG Care Time/CCT Total # of Minutes Spent Total Time Spent with Patient: Total time spent is greater than 50% in coordination of care (as documented) at patient's floor/unit and/or counseling patient: Coding Level of Care Code 12366 Subseq Hosp Care Lvl 3 Diagnoses ESRD (end stage renal disease) on dialysis N18.6; Z99.2 History of kidney transplant Z94.0 Pneumonia due to COVID-19 virus U07.1; J12.82
--- NOTE | 2021-07-27 21:24 | Hospitalist Progress Note ---
Date of Service July 27, 2021 Assessment & Plan (1) Acute respiratory failure with hypoxia: Plan: 2nd COVID-19 pneumonia - main factor. Pulmonary edema from ESRD also contributing - s/p HD yesterday and again today with significant improvement in O2 requirements he has had 3 serial treatments over 3 days with nice improvement in O2 requirement (from a high of 45 L and 100% FiO2, down to 12 L today). Steroids causing fluid retention? Pulm HTN leading to pulm edema? other? Appreciate nephrology assistance. no evidence of ACS - troponin neg Cannot rule out that he developed ARDS from his COVID. Elected to cover for bacterial superinfection given his significant clinical worsening on Friday along with elevated inflammatory markers. Remains on cefepime/doxy day #3 of each. Defer on MRSA coverage - MRSA swab neg. Remains on Dexamethasone 10mg/day to cover for development of ARDS. Consider echo (last echo was in [place] in 2019 - nl LV function then, severe LVH). (2) Pneumonia due to 2019-nCoV: Plan: had been improving then much worse on 07/25/21. transferred to [facility] COVID wing[facility]tele [facility] 07[facility]. day #6 dexamethasone today - dose was increased from 6 to 10 on 07/25/21 to cover for possibility of developing ARDS. not a candidate for Remdesivir treatment crp and procal both high - abx initiated on 07/25/21 - continue cefepime/doxy - day #3. flutter valve, IS, etc supportive care. unfortunately cannot prone - he attempted w/o succcess. not a candidate for Toci or Baricitinib (3) ESRD (end stage renal disease) on dialysis: Plan: [facility] [place] typical HD schedule of M/W/F now has had 3 serial HD treatments with nice clinical improvement this seems to suggest he did have pulmonary edema/volume overload in the midst of his COVID pneumonia appreciate Dr Awad's assistance (4) Hyperparathyroidism: Plan: Secondary to ESRD Continue VELPHORO (5) Hypercholesterolemia: Plan: Continue atorvastatin LFTs nl this admission (6) Hypertension: Plan: Continue amlodipine stable, controlled (7) Anemia due to chronic kidney disease: Plan: stable (8) DVT prophylaxis: Plan: heparin TID recent CTA chest neg for PE (9) Diabetes mellitus type 2 in nonobese: Plan: controlled at this time novolog SSI lantus 8 units daily Plan: left message for 07/23 and 07/24 on voicemail left 2 messages for 07/25 on voicemail Rachel - daughter - [phone] - extensively updated by phone 07/26 I am pleased with his progress now that he is improved - start PT/OT and/or ambulate as tolerated Admission and Anticipated Discharge Date Admission Date: July 23, 2021 Subjective feels MUCH better today he can take deeper breaths still not back to normal with the above, but improved cough - modestly productive at times no dyspnea at rest o2 sats >90% all day today on 12 L O2 had HD again today - nearly 2.5 L UF pulled this was his 3rd HD treatment in a row hemodynamically tolerated such tele stable overnight Review of Systems Review of Systems: gen - no fevers or chills; eating well pulm - no hemoptysis, mild chest tightness with coughing only cv - no substernal chest pain GI - no N/V/pain Physical Exam Physical Exam: gen - looks much better today; no increased WOB or dyspnea; very comfortable neck - no obvious JVD heart - RRR, s1 s2, 2/6 AMBROSIO LSB lungs - fine dry rales anterior b/l chest; fine dry rales b/l posteriorly; no increased WOB; occasional course BS/wheeze abd - soft NT ND BS+ ext - no edema, pulses 2+ b/l; AV fistula LUE psych - a/o x 3 Results & Data Results & Data ([facility]) Vital Signs (Past 12 Hours) Vital Signs Temp Pulse Pulse Pulse Resp BP BP 07/27/21 19:19 36.9 C 67 24 142/92 H 07/27/21 15:47 36.6 C 63 18 104/65 07/27/21 15:20 63 07/27/21 13:41 36.6 C 58 L 106/69 07/27/21 13:00 56 L 104/62 07/27/21 12:40 57 L 98/67 L 07/27/21 12:22 61 107/69 07/27/21 12:00 54 L 114/65 07/27/21 11:40 55 L 116/68 07/27/21 11:20 56 L 116/69 07/27/21 11:00 55 L 116/68 07/27/21 10:40 56 L 117/69 07/27/21 10:20 58 L 117/72 07/27/21 10:00 59 L 115/76 07/27/21 09:40 64 130/78 Pulse Ox 07/27/21 19:19 95 07/27/21 15:47 98 07/27/21 15:20 07/27/21 13:41 07/27/21 13:00 07/27/21 12:40 07/27/21 12:22 07/27/21 12:00 07/27/21 11:40 07/27/21 11:20 07/27/21 11:00 07/27/21 10:40 07/27/21 10:20 07/27/21 10:00 07/27/21 09:40 Laboratory Results Laboratory Results - last 24 hr 07/27/21 07/27/21 07/27/21 07:56 14:13 17:21 POC Glucose 98 129 H 198 H 07/27/21 21:04 POC Glucose 165 H PG Care Time/CCT Total # of Minutes Spent Total Time Spent with Patient: Total time spent is greater than 50% in coordination of care (as documented) at patient's floor/unit and/or counseling patient: Coding Level of Care Code 51302 Subseq Hosp Care Lvl 2 Diagnoses Acute respiratory failure with hypoxia J96.01 Pneumonia due to 2019-nCoV U07.1; J12.82 ESRD (end stage renal disease) on dialysis N18.6; Z99.2 Hyperparathyroidism E21.3 Hypercholesterolemia E78.00 Hypertension I10 Anemia due to chronic kidney disease N18.9; D63.1 DVT prophylaxis Z29.9 Diabetes mellitus type 2 in nonobese E11.9
[2021-07-28] MEDS: HEPARIN SOD 5,000 UNIT/0.5 ML VIAL SQ SCH ×3 (06:11→20:18)
[2021-07-28 07:22] LABS: Hematocrit (blood only) 36.4 % (42-52); Hemoglobin 11.8 g/dL (14.0-18.0); Mean Corpuscular Hemoglobin 28.2 pg (25-34); Mean Corpuscular Hgb Conc 32.4 g/dL (32-36); Mean Corpuscular Volume 87.1 fL (80-100); Mean Platelet Volume 9.7 fL (7.4-10.4); Platelet Count 174 K/uL (130-400); RDW Standard Deviation 51.3 fL (36.4-46.3); Red Blood Count 4.18 M/uL (4.7-6.1); White Blood Count 8.41 K/uL (4.8-10.8)
[2021-07-28 08:01] LABS: BUN Creatinine Ratio 9.8 (10-20); Blood Urea Nitrogen 67 mg/dl (7-18); Carbon Dioxide 30 mmol/L (21-32); Chloride 96 mmol/L (98-107); Est GFR (African American) 9.4 ml/min; Est GFR (Non-African American) 8.1 ml/min; Glucose 120 mg/dl (70-99); Potassium 4.9 mmol/L (3.5-5.1); Sodium 134 mmol/L (136-145)
--- NOTE | 2021-07-28 08:05 | XRay Report ---
XR chest 1V portable CLINICAL HISTORY: COVID pneumonia, interval change COMPARISON STUDY: Chest CT July 21, 2021. Chest radiograph July 26, 2021. FINDINGS: Lung volumes are normal. There is no pneumothorax. Extensive bilateral airspace opacities a re noted. These have slightly progressed. Cardiomegaly is unchanged. No pleural effusion is identifie d. IMPRESSION: Extensive bilateral airspace opacities which have mildly progressed. ACT 112: Negative or not required by law. Electronically signed by: Barrie Romero M.D. 07/28/2021 8:03 AM
[2021-07-28] MEDS: DOXYCYCLINE HYCLATE 100 MG in DEXTROSE 5% 100 ML IV SCH ×2 (08:07→20:13)
[2021-07-28] MEDS: BENZONATATE 100 MG CAPSULE PO PRN (08:07)
[2021-07-28] MEDS: ATORVASTATIN 40 MG TAB PO SCH (08:10)
[2021-07-28] MEDS: amLODIPine BESYLATE 5 MG TAB PO SCH (08:11)
[2021-07-28] MEDS: VITAMIN B COMPLEX TAB PO SCH (08:11)
[2021-07-28] MEDS: guaiFENesin 600 MG TABCR PO SCH ×2 (08:11→20:14)
[2021-07-28] MEDS: dexAMETHasone 10 MG in SYRINGE 0 ML IV SCH (08:12)
[2021-07-28] MEDS: METOPROLOL TARTRATE 50 MG TAB PO SCH ×2 (08:12→20:14)
[2021-07-28] MEDS: CALCIUM CARBONATE 500 MG CHEWABLE TAB PO SCH ×4 (08:13→17:42)
[2021-07-28] MEDS: SODIUM POLYSTYRENE SULFONATE 15G/60ML SUSP PO SCH (08:14)
[2021-07-28] MEDS: NEPHROCAPS PO SCH (08:14)
[2021-07-28] MEDS: INSULIN ASPART 100 UNITS/ML 3 ML PEN SC SCH ×4 (09:49→20:17)
[2021-07-28] MEDS: INSULIN GLARGINE SOLOSTAR 100 UNITS/ML 3 ML PEN SC SCH (09:51)
[2021-07-28] MEDS: CEFEPIME 500 MG in SYRINGE 0 ML IV SCH (09:51)
--- NOTE | 2021-07-28 11:40 | Nephrology Progress Note ---
Date of Service July 28, 2021 Assessment & Plan (1) ESRD (end stage renal disease) on dialysis: Plan: BP and volume status acceptable. Clearances appropriate and electrolytes controlled. No dialysis today. I will evaluate tomorrow AM for possible treatment as needed. Below EDW. Obligatory fluid intake not excessive. Typical MWF HD schedule. Medications appropriately dosed for kidney dysfunction and dialysis. AVF functioning well. Remains on SPS on non-dialysis days for history of hyperkalemia, I will hold the medication with monitoring while inpatient. (2) History of kidney transplant: Plan: Status 7 currently due to hospitalization and COVID. (3) Pneumonia due to COVID-19 virus: Plan: Remains on Decadron and antibiotic therapy. Cefepime dosed appropriately for kidney dysfunction. Admission and Anticipated Discharge Date Admission Date: July 23, 2021 Subjective No acute events overnight. No fevers or chills. Marcos feels that his breathing has significantly improved. He is able to take deeper breaths. She continues to endorse fatigue. HD completed yesterday without complications. Net UF 2.3 L. Hypotensive at end of treatment but BP now improved. Review of Systems Review of Systems: All systems reviewed & are unremarkable except as noted in HPI & below Physical Exam Constitutional: well developed; no acute distress Eyes: no scleral abnormality and no corneal abnormality Neck: normal visual inspection and trachea midline Respiratory: normal respiratory effort Auscultation: lungs clear to auscultation bilaterally Cardiovascular: Rate/Rhythm: regular rate Heart Sounds: normal S1, normal S2 and + murmur Extremities: + AV fistula; no edema Musculoskeletal: Extremities: no cyanosis and no clubbing Skin: normal turgor; no lesions Neurologic: Motor/Sensory: no tremor and no asterixis Psychiatric: Orientation: alert and oriented x 3 Results & Data ([facility]) Vital Signs (Past 12 Hours) Vital Signs Temp Pulse Pulse Pulse Resp BP Pulse Ox 07/28/21 11:03 36.5 C 56 L 20 121/66 95 07/28/21 08:00 56 L 07/28/21 07:08 36.4 C L 63 21 138/84 92 07/28/21 03:27 36.7 C 56 L 21 132/75 93 Laboratory Results Laboratory Results - last 24 hr 07/27/21 07/27/21 07/27/21 14:13 17:21 21:04 WBC RBC Hgb Hct MCV MCH MCHC RDW Std Deviation RDW Coeff of Lisseth Plt Count MPV Sodium Potassium Chloride Carbon Dioxide Anion Gap BUN Creatinine Est Cr Clr Drug Dosing Est GFR ( Amer) Est GFR (Non-Af Amer) BUN/Creatinine Ratio Glucose POC Glucose 129 H 198 H 165 H Calcium C-Reactive Protein 07/28/21 07/28/21 07/28/21 06:28 06:28 07:50 WBC 8.41 RBC 4.18 L Hgb 11.8 L Hct 36.4 L MCV 87.1 MCH 28.2 MCHC 32.4 RDW Std Deviation 51.3 H RDW Coeff of Lisseth 16.0 H Plt Count 174 MPV 9.7 Sodium 134 L Potassium 4.9 Chloride 96 L Carbon Dioxide 30 Anion Gap 8.0 BUN 67 H Creatinine 6.85 H* Est Cr Clr Drug Dosing Not Reportable Est GFR ( Amer) 9.4 Est GFR (Non-Af Amer) 8.1 BUN/Creatinine Ratio 9.8 L Glucose 120 H POC Glucose 115 H Calcium 10.0 C-Reactive Protein 27.00 H PG Care Time/CCT Total # of Minutes Spent Total Time Spent with Patient: Total time spent is greater than 50% in coordination of care (as documented) at patient's floor/unit and/or counseling patient: Coding Level of Care Code 93733 Subseq Hosp Care Lvl 3 Diagnoses ESRD (end stage renal disease) on dialysis N18.6; Z99.2 History of kidney transplant Z94.0 Pneumonia due to COVID-19 virus U07.1; J12.82
--- NOTE | 2021-07-28 12:13 | Hospitalist Progress Note ---
Date of Service July 28, 2021 Assessment & Plan (1) Acute respiratory failure with hypoxia: Plan: 2nd COVID-19 pneumonia - main factor. Pulmonary edema from ESRD likely also contributed - s/p 3 serial HD sessions - no HD today planned. He improvement in O2 requirement with the serial HDs. (from a high of 45 L and 100% FiO2, down to 11 L today). Cannot rule out that he developed ARDS from his COVID. Steroids causing fluid retention? Pulm HTN leading to pulm edema? other? consider an echo (previous echo 2019 - [facility] - LV function, severe LVH). Appreciate nephrology assistance. no evidence of ACS - troponin neg Elected to cover for bacterial superinfection given his significant clinical worsening on Friday along with elevated inflammatory markers. Remains on cefepime/doxy day #4 of each. Deferred on MRSA coverage - MRSA swab neg. Remains on Dexamethasone 10mg/day to cover for development of ARDS. (2) Pneumonia due to 2019-nCoV: Plan: had been improving then much worse on 07/25/21. transferred to [facility] wing/tele on 07/25 from [facility]. day #7 dexamethasone today - dose was increased from 6 to 10 on 07/25/21 to cover for possibility of developing ARDS. not a candidate for Remdesivir treatment crp and procal both high - abx initiated on 07/25/21 - continue cefepime/doxy - day #4. flutter valve, IS, etc supportive care. unfortunately cannot prone - he attempted w/o succcess. not a candidate for Toci or Baricitinib despite clinically stable today and with decreasing O2 requirements his CRP has risen to 27, and cxr is unchanged or even slightly worse. again - ARDS?? low threshold for pulmonary consultation. (3) ESRD (end stage renal disease) on dialysis: Plan: [facility] [place] typical HD schedule of M/W/F s/p 3 serial HD treatments with nice clinical improvement in O2 requirement last 48 hours this seems to suggest he did have pulmonary edema/volume overload in the midst of his COVID pneumonia appreciate Dr Awad's assistance no HD today (4) Hyperparathyroidism: Plan: Secondary to ESRD Continue VELPHORO (5) Hypercholesterolemia: Plan: Continue atorvastatin LFTs nl this admission (6) Hypertension: Plan: Continue amlodipine stable, controlled (7) Anemia due to chronic kidney disease: Plan: stable (8) DVT prophylaxis: Plan: heparin TID recent CTA chest neg for PE (9) Diabetes mellitus type 2 in nonobese: Plan: controlled at this time novolog SSI lantus 8 units daily Plan: left message for 07/23 and 07/24 on voicemail left 2 messages for 07/25 on voicemail Rachel delgado - [phone] - extensively updated by phone 07/26 and 07/28 PT, OT cassia Admission and Anticipated Discharge Date Admission Date: July 23, 2021 Subjective pt sitting in chair watching [employer] football game overall feels good "can't take full breaths yet" but it is significantly improved from prior no dyspnea or orthopnea but has baseline mild MARTE walking to commode good appetite tele overnight wnl Review of Systems Review of Systems: gen - no fevers, no chills pulm - cough present, no sputum CV - only chest tightness w/ coughing GI - no N/V/pain Physical Exam Physical Exam: gen - looks good, sitting in chair, NAD, no increased work of breathing neck - no obvious JVD heart - RRR, s1 s2, 2/6 AMBROSIO LSB lungs - fine dry rales anterior b/l chest; fine dry rales b/l posteriorly; no wheeze abd - soft NT ND BS+ ext - no edema, pulses 2+ b/l; AV fistula LUE psych - a/o x 3 Results & Data Results & Data ([facility]) Vital Signs (Past 12 Hours) Vital Signs Temp Pulse Pulse Pulse Resp BP Pulse Ox 07/28/21 11:03 36.5 C 56 L 20 121/66 95 07/28/21 08:00 56 L 07/28/21 07:08 36.4 C L 63 21 138/84 92 07/28/21 03:27 36.7 C 56 L 21 132/75 93 Laboratory Results Laboratory Results - last 24 hr 07/27/21 07/27/21 07/27/21 14:13 17: 21:04 WBC RBC Hgb Hct MCV MCH MCHC RDW Std Deviation RDW Coeff of Lisseth Plt Count MPV Sodium Potassium Chloride Carbon Dioxide Anion Gap BUN Creatinine Est Cr Clr Drug Dosing Est GFR ( Amer) Est GFR (Non-Af Amer) BUN/Creatinine Ratio Glucose POC Glucose 129 H 198 H 165 H Calcium C-Reactive Protein 07/28/21 07/28/21 07/28/21 06:28 06:28 07:50 WBC 8.41 RBC 4.18 L Hgb 11.8 L Hct 36.4 L MCV 87.1 MCH 28.2 MCHC 32.4 RDW Std Deviation 51.3 H RDW Coeff of Lisseth 16.0 H Plt Count 174 MPV 9.7 Sodium 134 L Potassium 4.9 Chloride 96 L Carbon Dioxide 30 Anion Gap 8.0 BUN 67 H Creatinine 6.85 H* Est Cr Clr Drug Dosing Not Reportable Est GFR ( Amer) 9.4 Est GFR (Non-Af Amer) 8.1 BUN/Creatinine Ratio 9.8 L Glucose 120 H POC Glucose 115 H Calcium 10.0 C-Reactive Protein 27.00 H 07/28/21 11:56 WBC RBC Hgb Hct MCV MCH MCHC RDW Std Deviation RDW Coeff of Lisseth Plt Count MPV Sodium Potassium Chloride Carbon Dioxide Anion Gap BUN Creatinine Est Cr Clr Drug Dosing Est GFR ( Amer) Est GFR (Non-Af Amer) BUN/Creatinine Ratio Glucose POC Glucose 152 H Calcium C-Reactive Protein Diagnostic Findings Chest X-Ray 07/28/21 07:30 XR chest 1V portable CLINICAL HISTORY: COVID pneumonia, interval change COMPARISON STUDY: Chest CT July 21, 2021. Chest radiograph July 26, 2021. FINDINGS: Lung volumes are normal. There is no pneumothorax. Extensive bilateral airspace opacities are noted. These have slightly progressed. Cardiomegaly is unchanged. No pleural effusion is identified. IMPRESSION: Extensive bilateral airspace opacities which have mildly progressed. ACT 112: Negative or not required by law. Electronically signed by: Barrie Romero M.D. 07/28/2021 8:03 AM PG Care Time/CCT Total # of Minutes Spent Total Time Spent with Patient: Total time spent is greater than 50% in coordination of care (as documented) at patient's floor/unit and/or counseling patient: Coding Level of Care Code 94655 Subseq Hosp Care Lvl 3 Diagnoses Acute respiratory failure with hypoxia J96.01 Pneumonia due to 2019-nCoV U07.1; J12.82 ESRD (end stage renal disease) on dialysis N18.6; Z99.2 Hyperparathyroidism E21.3 Hypercholesterolemia E78.00 Hypertension I10 Anemia due to chronic kidney disease N18.9; D63.1 DVT prophylaxis Z29.9 Diabetes mellitus type 2 in nonobese E11.9
[2021-07-28] MEDS: DEXTROMETHORPHAN POLYMR COMPLX 30 MG/5 ML UDP PO PRN (20:14)
[2021-07-29] MEDS: DEXTROMETHORPHAN POLYMR COMPLX 30 MG/5 ML UDP PO PRN ×3 (03:43→19:39)
[2021-07-29] MEDS: HEPARIN SOD 5,000 UNIT/0.5 ML VIAL SQ SCH ×3 (05:24→21:56)
[2021-07-29] MEDS: CALCIUM CARBONATE 500 MG CHEWABLE TAB PO SCH ×3 (07:31→16:49)
[2021-07-29] MEDS: INSULIN ASPART 100 UNITS/ML 3 ML PEN SC SCH ×4 (08:55→21:58)
[2021-07-29] MEDS: VITAMIN B COMPLEX TAB PO SCH (08:56)
[2021-07-29] MEDS: ATORVASTATIN 40 MG TAB PO SCH (08:57)
[2021-07-29] MEDS: NEPHROCAPS PO SCH (08:57)
[2021-07-29] MEDS: amLODIPine BESYLATE 5 MG TAB PO SCH (08:57)
[2021-07-29] MEDS: dexAMETHasone 10 MG in SYRINGE 0 ML IV SCH (08:57)
[2021-07-29] MEDS: guaiFENesin 600 MG TABCR PO SCH ×2 (08:58→21:54)
[2021-07-29] MEDS: METOPROLOL TARTRATE 50 MG TAB PO SCH ×2 (08:58→21:55)
[2021-07-29] MEDS: INSULIN GLARGINE SOLOSTAR 100 UNITS/ML 3 ML PEN SC SCH (08:58)
[2021-07-29] MEDS: DOXYCYCLINE HYCLATE 100 MG in DEXTROSE 5% 100 ML IV SCH ×2 (09:09→20:44)
[2021-07-29] MEDS: CEFEPIME 500 MG in SYRINGE 0 ML IV SCH (09:09)
--- NOTE | 2021-07-29 10:46 | Nephrology Progress Note ---
Date of Service July 29, 2021 Assessment & Plan (1) ESRD (end stage renal disease) on dialysis: Plan: BP and volume status acceptable. No dialysis today. Next HD anticipated tomorrow. Update metabolic profile in the AM. Medications appropriately dosed for kidney dysfunction and dialysis. AVF functioning well. Remains on SPS on non-dialysis days for history of hyperkalemia, I will hold the medication with monitoring while inpatient. (2) History of kidney transplant: Plan: Status 7 currently due to hospitalization and COVID. (3) Pneumonia due to COVID-19 virus: Plan: Remains on Decadron and antibiotic therapy. Cefepime dosed appropriately for kidney dysfunction. Admission and Anticipated Discharge Date Admission Date: July 23, 2021 Subjective No acute events overnight. No fevers or chills. Feeling slightly stronger this AM. Ambulating in room. Breathing reasonably comfortably. Physical Exam Constitutional: well developed; no acute distress Eyes: no scleral abnormality and no corneal abnormality Neck: normal visual inspection and trachea midline Respiratory: normal respiratory effort Auscultation: lungs clear to auscultation bilaterally Cardiovascular: Rate/Rhythm: regular rate Heart Sounds: normal S1, normal S2 and + murmur Extremities: + AV fistula; no edema Musculoskeletal: Extremities: no cyanosis and no clubbing Skin: normal turgor; no lesions Neurologic: Motor/Sensory: no tremor and no asterixis Psychiatric: Orientation: alert and oriented x 3 Results & Data ([facility]) Vital Signs (Past 12 Hours) Vital Signs Temp Pulse Resp BP Pulse Ox 07/29/21 07:41 36.4 C L 60 21 144/89 H 92 07/29/21 03:44 36.4 C L 68 22 145/85 H 96 07/28/21 23:22 36.5 C 58 L 22 153/88 H 96 Laboratory Results Laboratory Results - last 24 hr 07/28/21 07/28/21 07/28/21 11:56 16:54 19:54 POC Glucose 152 H 178 H 181 H 07/29/21 07:43 POC Glucose 124 H PG Care Time/CCT Total # of Minutes Spent Total Time Spent with Patient: Total time spent is greater than 50% in coordination of care (as documented) at patient's floor/unit and/or counseling patient: Coding Level of Care Code 57071 Subseq Hosp Care Lvl 3 Diagnoses ESRD (end stage renal disease) on dialysis N18.6; Z99.2 History of kidney transplant Z94.0 Pneumonia due to COVID-19 virus U07.1; J12.82
[2021-07-29] MEDS: BENZONATATE 100 MG CAPSULE PO PRN (19:39)
--- NOTE | 2021-07-29 23:01 | Hospitalist Progress Note ---
Date of Service July 29, 2021 Assessment & Plan (1) Acute respiratory failure with hypoxia: Plan: 2nd severe COVID-19 pneumonia and concern for ARDS. Pulmonary edema from ESRD likely also contributed. s/p 3 serial HD sessions this week with large volume of fluid removed over those sessions. He had improvement in O2 requirement with the serial HDs. (from a high of 45 L and 100% FiO2, down to < 15 L). again - development of ARDS? Steroids causing fluid retention? Pulm HTN leading to pulm edema? other? suspect combo of factors. consider an echo (previous echo 2019 - [facility] - LV function, severe LVH). no evidence of ACS - troponin neg Elected to cover for bacterial superinfection given his significant clinical worsening on Friday along with elevated inflammatory markers. Remains on cefepime/doxy day #5 of each. Change IV doxy to PO for the remainder 2 days. Cont cefepime for 2 more days. Deferred on MRSA coverage - MRSA swab neg. Remains on Dexamethasone 10mg/day to cover for development of ARDS. See below. (2) Pneumonia due to 2019-nCoV: Plan: had been improving then much worse on 07/25/21. [facility] to [facility]tele on 07[facility] from [facility]. day #8 dexamethasone today - dose was increased from 6 to 10mg on 07/25/21 to cover for possibility of developing ARDS. not a candidate for Remdesivir treatment crp and procal both high - abx initiated on 07/25/21 - continue cefepime/doxy - day #5. flutter valve, IS, etc supportive care. unfortunately cannot prone - he attempted w/o succcess. not a candidate for Toci or Baricitinib despite clinically stability now and with decreasing O2 requirements his msot recent CRP had risen to 27, and cxr was unchanged or even slightly worse (DIFFUSE b/l infiltrates). again - suspect ARDS/ low threshold for pulmonary consultation. repeat CRP am. (3) Acute respiratory distress syndrome (ARDS) due to 2019 novel coronavirus: Plan: see above (4) ESRD (end stage renal disease) on dialysis: [place] [facility] [place] HD schedule of M/W/F s/p 3 serial HD treatments with nice clinical improvement in O2 requirement late last week. this seems to suggest he did have pulmonary edema/volume overload in the midst of his COVID pneumonia. appreciate Nephrology assistance no HD today HD planned on Friday per usual schedule (5) Hyperparathyroidism: Plan: Secondary to ESRD Continue VELPHORO (6) Hypercholesterolemia: Plan: Continue atorvastatin LFTs nl this admission (7) Hypertension: Plan: Continue amlodipine stable, controlled (8) Anemia due to chronic kidney disease: Plan: stable (9) DVT prophylaxis: Plan: heparin TID recent CTA chest neg for PE (10) Diabetes mellitus type 2 in nonobese: Plan: controlled at this time novolog SSI lantus 8 units daily Plan: left message for 07/23 and 07/24 on voicemail left 2 messages for 07/25 on voicemail Rachel - danny - [phone] - extensively updated by phone 07/26 and 07/28 PT, AMAYA antony Admission and Anticipated Discharge Date Admission Date: July 23, 2021 Subjective again pt sitting in chair watching a car race he said once again "I'm doing better today" breathing is comfortable; like yesterday he reiterates that he still can't take deep breaths like usual, but it is slightly improved today cough unchanged mild MARTE w/ walking in room no chest pain/tightness good appetite tele wnl overnight no HD today - HD scheduled for Friday Review of Systems Review of Systems: gen - no fevers, no chills CV - no pain pulm - no hemoptysis, no dyspnea at rest GI - no N/V/pain musculo - no myalgias Physical Exam Physical Exam: gen - looks good, sitting in chair, NAD, no increased work of breathing, occasional cough neck - no obvious JVD heart - RRR, s1 s2, 2/6 AMBROSIO LSB lungs - fine dry rales anterior b/l chest; fine dry rales b/l posteriorly; no wheeze; no increased work of breathing abd - soft NT ND BS+ ext - no edema, pulses 2+ b/l; AV fistula LUE with +bruit psych - a/o x 3, good spirits Results & Data Results & Data ([facility]) Vital Signs (Past 12 Hours) Vital Signs Temp Pulse Pulse Resp BP Pulse Ox 07/29/21 19:48 36.6 C 57 L 22 169/85 H 94 07/29/21 17:00 58 L 07/29/21 15:14 36.5 C 57 L 25 H 156/87 H 95 07/29/21 11:29 36.5 C 60 20 134/72 92 Laboratory Results Laboratory Results - last 24 hr 07/29/21 07/29/21 07/29/21 07:43 11:27 16:47 POC Glucose 124 H 248 H 195 H 07/29/21 21:00 POC Glucose 151 H PG Care Time/CCT Total # of Minutes Spent Total Time Spent with Patient: Total time spent is greater than 50% in coordination of care (as documented) at patient's floor/unit and/or counseling patient: Coding Level of Care Code 81006 Subseq Hosp Care Lvl 2 Diagnoses Acute respiratory failure with hypoxia J96.01 Pneumonia due to 2019-nCoV U07.1; J12.82 ESRD (end stage renal disease) on dialysis N18.6; Z99.2 Hyperparathyroidism E21.3 Hypercholesterolemia E78.00 Hypertension I10 Anemia due to chronic kidney disease N18.9; D63.1 DVT prophylaxis Z29.9 Diabetes mellitus type 2 in nonobese E11.9 Acute respiratory distress syndrome (ARDS) due to 2019 novel coronavirus U07.1; J80
[2021-07-30] MEDS: ONDANSETRON INJ 2 MG/ML 2 ML VIAL IV PRN ×2 (03:15→08:47)
[2021-07-30] MEDS: DEXTROMETHORPHAN POLYMR COMPLX 30 MG/5 ML UDP PO PRN ×2 (05:57→15:53)
[2021-07-30 06:22] LABS: Hematocrit (blood only) 38.1 % (42-52); Hemoglobin 12.7 g/dL (14.0-18.0); Mean Corpuscular Hemoglobin 28.8 pg (25-34); Mean Corpuscular Hgb Conc 33.3 g/dL (32-36); Mean Corpuscular Volume 86.4 fL (80-100); Mean Platelet Volume 9.5 fL (7.4-10.4); Platelet Count 201 K/uL (130-400); RDW Coefficient of Variation 15.8 % (11.5-14.5); RDW Standard Deviation 50.5 fL (36.4-46.3); Red Blood Count 4.41 M/uL (4.7-6.1)
[2021-07-30] MEDS: HEPARIN SOD 5,000 UNIT/0.5 ML VIAL SQ SCH ×3 (06:26→21:08)
[2021-07-30] MEDS ORDERED: HEPARIN SOD (PORCINE) 1000 UNIT/ML IV ONE (07:00)
[2021-07-30] MEDS ORDERED: SODIUM CHLORIDE 0.9% 1000ML 1,000 ML IV PRN (07:00)
[2021-07-30 07:26] LABS: Albumin Level 2.5 gm/dl (3.4-5.0); Blood Urea Nitrogen 151 mg/dl (7-18); Calcium 10.1 mg/dl (8.5-10.1); Carbon Dioxide 24 mmol/L (21-32); Chloride 92 mmol/L (98-107); Est GFR (Non-African American) 4.3 ml/min; Glucose 85 mg/dl (70-99); Phosphorus 8.9 mg/dl (2.5-4.9); Potassium 5.3 mmol/L (3.5-5.1); Sodium 132 mmol/L (136-145)
[2021-07-30] MEDS: CALCIUM CARBONATE 500 MG CHEWABLE TAB PO SCH ×3 (07:33→15:55)
[2021-07-30] MEDS: INSULIN ASPART 100 UNITS/ML 3 ML PEN SC SCH ×4 (07:55→20:35)
[2021-07-30] MEDS ORDERED: DOXYCYCLINE HYCLATE 100 MG CAP PO SCH (09:00)
--- NOTE | 2021-07-30 09:05 | Hospitalist Progress Note ---
Date of Service July 30, 2021 Assessment & Plan (1) Acute respiratory failure with hypoxia: Plan: 2nd severe COVID-19 pneumonia and concern for ARDS. Pulmonary edema from ESRD likely also contributing had 3 serial HD sessions past week with large volume of fluid removed over those sessions. He had improvement in O2 requirement with the serial HDs. (from a high of 45 L and 100% FiO2, down to 9L on 07/29) 07/30, having some distress, need to remove fluid but HR dropped and BP dropped hold on UF but need to get fluid off consulted ICU to evaluate for central line, pressor support, possible airway protection and ventilation patient agrees to intensive care if needed Elected to cover for bacterial superinfection given his significant clinical worsening on Friday along with elevated inflammatory markers. Remains on cefepime/doxy day #6 of each, finish tomorrow Deferred on MRSA coverage - MRSA swab neg. Remains on Dexamethasone 10mg/day to cover for development of ARDS. See below. (2) Pneumonia due to 2019-nCoV: Plan: had been improving then much worse on 07/25/21. transferred to [facility] wing[facility]tele on 07/[facility]. day #9 dexamethasone today - dose was increased from 6 to 10mg on 07/25/21 to cover for possibility of developing ARDS. not a candidate for Remdesivir treatment crp and procal both high - abx initiated on 07/25/21 - continue cefepime/doxy - day #6 flutter valve, IS, etc supportive care. unfortunately cannot prone - he attempted w/o succcess. not a candidate for Toci or Baricitinib CRP down to 11 today from high of 27 breathing is a little more labored today, likely from volume (3) Sinus bradycardia: Plan: dropped to 40's this morning, EKG shows sinus rhythm, no block responded to Atropine 0.5mg IV push, HR now in 60's give Atropine again PRN if bradycardia and hypotension continues then may need pressor support move to ICU status (4) Hypotension: Plan: all BP medications held this morning in anticipation of HD currently the low BP is making UF difficult may need pressor support, central line moved to ICU status (5) Acute respiratory distress syndrome (ARDS) due to 2019 novel coronavirus: Plan: see above dexamethasone, try to remove fluid with HD, see below (6) ESRD (end stage renal disease) on dialysis: Plan: [facility] typical HD schedule of M/W/F s/p 3 serial HD treatments with nice clinical improvement in O2 requirement last week attempted HD with volume removal this morning, did not tolerate, HR dropped to 40's and BP 90's systolic diaphoretic, nauseated (7) Hyperparathyroidism: Plan: Secondary to ESRD Continue VELPHORO (8) Hypercholesterolemia: Plan: Continue atorvastatin LFTs nl this admission (9) Hypertension: Plan: hold Norvasc and metoprolol (10) Anemia due to chronic kidney disease: Plan: stable, 12 today (11) DVT prophylaxis: Plan: heparin TID recent CTA chest neg for PE (12) Diabetes mellitus type 2 in nonobese: Plan: controlled at this time novolog SSI lantus 8 units daily Plan: move to ICU status hopeful that we can avoid intubation, will need daily HD Admission and Anticipated Discharge Date Admission Date: July 23, 2021 Subjective patient feeling really bad this morning, c/o nausea, abdominal pain, very diaphoretic HR dropped to 40's, sinus casey on EKG, no ischemic changes gave Atropine 0.5mg IV and HR up to 60's and holding saturations dropped on 15L, was placed on CPAP but he could not tolerate, made nausea worse, placed on 60L and 100% saturations 90-95%, tachypneic discussed with Dr. Loomis at the bedside, he did not get HD yesterday, he looked better, was on 9L but desaturated requiring 15L when he exerted himself discussed with Dr. Christianson at the bedside, he spoke with the patient about pot ential need for intubation, patient reluctant but said if "it is 100% necessary then he would be okay with it, would want to be asleep" I tried calling his Susana but there was no answer reviewed labs, WBC 11k, Hb 12.7, CRP 11.2, Cr 11, K 5.3 Review of Systems Review of Systems: All systems reviewed & are unremarkable except as noted in Subjective Constitutional: + sweats, + fatigue and + weakness; no fever Respiratory: + dyspnea and + dyspnea on exertion; no cough Cardiovascular: no chest pain Gastrointestinal: + abdominal pain, + nausea and + vomiting; no constipation and no diarrhea/loose stools Physical Exam Physical Exam: General: well developed, well nourished, obese male, + diaphoretic, mild distress, generally uncomfortable Neck: supple, trachea midline, normal thyroid Lungs: clear to auscultation bilaterally, tachypneic, belly breathing, no distress Heart: bradycardic S1 and S2, no murmur, peripheral pulses normal, capillary refill normal, no edema, LUE fistula with thrill and bruit Abdomen: soft, NT, distended, + BS, no hepatomegaly, normal to percussion Extremities: normal in appearance, no cyanosis, no petechiae, strength is 5/5 bilaterally Neuro: awake, cooperative, moves all extremities, no focal motor deficits, CN II-XII intact, sensation in extremities intact, normal speech Skin: warm, dry, no rash, normal turgor Psych: Awake, alert oriented x 3, anxious and scared Results & Data Results & Data ([facility]) Vital Signs (Past 12 Hours) Vital Signs Temp Pulse Pulse Pulse Resp BP BP 07/30/21 08:43 46 L 86/52 L 07/30/21 08:20 54 L 117/77 07/30/21 08:00 54 L 130/72 07/30/21 07:40 58 L 148/78 H 07/30/21 07:29 36.4 C L 60 07/30/21 03:19 157/101 H 07/30/21 03:08 36.4 C L 66 22 185/106 H 07/29/21 23:01 36.3 C L 60 24 174/103 H Pulse Ox 07/30/21 08:43 07/30/21 08:20 07/30/21 08:00 07/30/21 07:40 07/30/21 07:29 07/30/21 03:19 07/30/21 03:08 92 07/29/21 23:01 94 Laboratory Results Laboratory Results - last 24 hr 07/29/21 07/29/21 07/29/21 11:27 16:47 21:00 WBC RBC Hgb Hct MCV MCH MCHC RDW Std Deviation RDW Coeff of Lisseth Plt Count MPV Sodium Potassium Chloride Carbon Dioxide Anion Gap BUN Creatinine Est Cr Clr Drug Dosing Est GFR ( Amer) Est GFR (Non-Af Amer) BUN/Creatinine Ratio Glucose POC Glucose 248 H 195 H 151 H Calcium Phosphorus C-Reactive Protein Albumin 07/30/21 07/30/21 07/30/21 05:33 05:33 06:56 WBC 11.70 H RBC 4.41 L Hgb 12.7 L Hct 38.1 L MCV 86.4 MCH 28.8 MCHC 33.3 RDW Std Deviation 50.5 H RDW Coeff of Lisseth 15.8 H Plt Count 201 MPV 9.5 Sodium 132 L Potassium 5.3 H Chloride 92 L Carbon Dioxide 24 Anion Gap 16.0 H BUN 151 H D Creatinine 11.60 H* D Est Cr Clr Drug Dosing Not Reportable Est GFR ( Amer) 5.0 Est GFR (Non-Af Amer) 4.3 BUN/Creatinine Ratio 13.0 Glucose 85 POC Glucose 101 H Calcium 10.1 Phosphorus 8.9 H C-Reactive Protein 11.20 H Albumin 2.5 L Medications Administered Current Inpatient Medications Amlodipine Besylate (Amlodipine Besylate 5 Mg Tab) 5 mg PO QAM [facility] Stop: 08/21/21 08:59 Last Admin: 07/29/21 08:57 Dose: 5 mg Documented by: Atorvastatin Calcium (Atorvastatin 40 Mg Tab) 40 mg PO QAM [facility] Stop: 08/21/21 08:59 Last Admin: 07/29/21 08:57 Dose: 40 mg Documented by: Benzonatate (Benzonatate 100 Mg Capsule) 200 mg PO Q8H PRN PRN Reason: Cough Stop: 08/24/21 07:01 Last Admin: 07/29/21 19:39 Dose: 200 mg Documented by: Calcium Carbonate (Calcium Carbonate 500 Mg Chewable Tab) 500 mg PO TIDM [facility] Stop: 08/22/21 16:59 Last Admin: 07/30/21 07:33 Dose: Not Given Documented by: Dextromethorphan Polymer Complex (Dextromethorphan Polymr Complx 30 Mg/5 Ml Udp) 30 mg PO Q6H PRN PRN Reason: Cough Stop: 08/20/21 21:52 Last Admin: 07/30/21 05:57 Dose: 30 mg Documented by: Dextrose (Dextrose 50% 50 Ml Syringe) 25 - 50 ml IV UD PRN; Protocol PRN Reason: Hypoglycemia Protocol Stop: 08/21/21 14:44 Doxycycline Hyclate (Doxycycline Hyclate 100 Mg Cap) 100 mg PO BID [facility] Stop: 08/01/21 08:59 Glucagon (Glucagon For Inj 1 Mg Vial) 1 mg IM UD PRN; Protocol PRN Reason: Hypoglycemia Protocol Stop: 08/21/21 14:44 Glucose (Glucose 40% Gel 15 Gm Tube) 15 - 30 gm PO UD PRN; Protocol PRN Reason: Hypoglycemia Protocol Stop: 08/21/21 14:44 Glucose (Glucose 10 Tabs/Tube) 4 - 8 tabs PO UD PRN; Protocol PRN Reason: Hypoglycemia Protocol Stop: 08/21/21 14:44 Guaifenesin (Guaifenesin 600 Mg Tabcr) 1,200 mg PO Q12 [facility] Stop: 08/20/21 21:54 Last Admin: 07/29/21 21:54 Dose: 1,200 mg Documented by: Heparin Sodium (Porcine) (Heparin Sod 5,000 Unit/0.5 Ml Vial) 5,000 units SQ Q8 [facility] Stop: 08/21/21 21:59 Last Admin: 07/30/21 06:26 Dose: Not Given Documented by: Cefepime HCl 500 mg/ Syringe 5.65 mls @ 5.5 mls/min IV DAILY [facility]; Protocol Stop: 08/01/21 08:59 Last Admin: 07/29/21 09:09 Dose: 5.5 mls/min Documented by: Dexamethasone 10 mg/ Syringe 2.5 mls @ 1 mls/min IV QAM [facility] Stop: 08/24/21 08:59 Last Admin: 07/29/21 08:57 Dose: 1 mls/min Documented by: Sodium Chloride (Nss 1000ml) 1,000 mls @ 0 mls/hr IV .Q0M PRN PRN Reason: For Hemodialysis Use ONLY Stop: 07/30/21 12:59 Insulin Aspart (Insulin Aspart 100 Units/Ml 3 Ml Pen) 0 units SC ACHS [facility] Stop: 08/21/21 16:29 Last Admin: 07/30/21 07:55 Dose: Not Given Documented by: Insulin Glargine (Insulin Glargine Solostar 100 Units/Ml 3 Ml Pen) 8 units SC QAM [facility] Stop: 08/26/21 09:44 Last Admin: 07/29/21 08:58 Dose: 8 units Documented by: Metoprolol Tartrate (Metoprolol Tartrate 25 Mg Tab) 25 mg PO BID [facility] Stop: 08/29/21 20:59 Miscellaneous (*Velphoro*Order Awaiting Action) 1 ea N/A QS [facility] Stop: 08/21/21 00:00 Last Admin: 07/30/21 07:33 Dose: Not Given Documented by: Miscellaneous (Carbohydrates For Hypoglycemia ) 15 - 30 gm PO UD PRN PRN Reason: Hypoglycemia Treatment Stop: 08/21/21 14:44 Ondansetron HCl (Ondansetron Inj 2 Mg/Ml 2 Ml Vial) 4 mg IV Q6H PRN PRN Reason: Nausea And Vomiting Stop: 08/24/21 14:10 Last Admin: 07/30/21 08:47 Dose: 4 mg Documented by: Sodium Polystyrene Sulfonate (Sodium Polystyrene Sulfonate 15g/60ml Susp) 15 gm PO SuTuThSa [facility] Stop: 08/21/21 08:59 Last Admin: 07/28/21 08:14 Dose: 15 gm Documented by: Vitamin B Complex (Vitamin B Complex Tab) 1 tab PO QAM [facility] Stop: 08/21/21 08:59 Last Admin: 07/29/21 08:56 Dose: 1 tab Documented by: Vitamin B Complex/Folic Acid (Nephrocaps) 1 cap PO QAM [facility] Stop: 08/23/21 08:59 Last Admin: 07/29/21 08:57 Dose: 1 cap Documented by: PG Care Time/CCT Total # of Minutes Spent Total Time Spent with Patient: Total time spent is greater than 50% in coordination of care (as documented) at patient's floor/unit and/or counseling patient: Critical Care Time: Yes Total Critical Care Time: 38 This case had a high probability of a clinically significant, sudden, or life threatening deterioration of this patient's condition which required my full and direct attention, intervention and personal management. from 9:22 until 10:00 07/30/21 Coding Level of Care Code 89807 Subseq Hosp Care Lvl 3 (25 - SIGNIFICANT, SEPARATELY IDENTIFIABLE ) Diagnoses Acute respiratory failure with hypoxia J96.01 Pneumonia due to 2019-nCoV U07.1; J12.82 Acute respiratory distress syndrome (ARDS) due to 2019 novel coronavirus U07.1; J80 ESRD (end stage renal disease) on dialysis N18.6; Z99.2 Hyperparathyroidism E21.3 Hypercholesterolemia E78.00 Hypertension I10 Anemia due to chronic kidney disease N18.9; D63.1 DVT prophylaxis Z29.9 Diabetes mellitus type 2 in nonobese E11.9 Sinus bradycardia R00.1 Hypotension I95.9 Additional Codes Critical Care Time - Critical Care Time: Yes ([id number])
[2021-07-30] MEDS ORDERED: ATROPINE SULFATE 0.1 MG/ML 5ML SYR IV ONE (09:20)
--- NOTE | 2021-07-30 09:48 | Nephrology Progress Note ---
Date of Service July 30, 2021 Assessment & Plan (1) ESRD (end stage renal disease) on dialysis: Plan: HD orders entered into EHR and reviewed with nurse. UF goal 3-4 L as tolerated given low BP. 2K bath for hyperkalemia. Update metabolic profile in the AM. Medications appropriately dosed for kidney dysfunction and dialysis. AVF functioning well. Remains on SPS on non-dialysis days for history of hyperkalemia, I will hold the medication with monitoring while inpatient. (2) History of kidney transplant: Plan: Status 7 currently due to hospitalization and COVID. (3) Pneumonia due to COVID-19 virus: Plan: Remains on Decadron and antibiotic therapy. Cefepime dosed appropriately for kidney dysfunction. Admission and Anticipated Discharge Date Admission Date: July 23, 2021 Ang Rodríguez was seen and evaluated during hemodialysis this morning. Unfortunately, respiratory status worsening overnight. Increased O2 requirement. Temperature dropping during HD. Atropine provided for bradycardia. Marcos is being moved to ICU status. Review of Systems Review of Systems: All systems reviewed & are unremarkable except as noted in HPI & below Constitutional: + fatigue and + weakness; no fever and no chills Eyes: no problem reported Ear, Nose, Mouth, Throat: no problem reported Respiratory: + dyspnea; no pain on inspiration Cardiovascular: no problem reported Gastrointestinal: no problem reported Musculoskeletal: no problem reported Integumentary: no problem reported Neurologic: no problem reported Psychiatric: no problem reported Endocrine: no problem reported Hematologic / Lymphatic: no problem reported Physical Exam Constitutional: + acute distress and + ill appearing Eyes: no scleral abnormality and no corneal abnormality Neck: normal visual inspection and trachea midline Respiratory: + labored breathing Auscultation: + rales and + rhonchi Cardiovascular: Rate/Rhythm: + bradycardic Heart Sounds: normal S1, normal S2 and + murmur Extremities: + AV fistula; no edema Musculoskeletal: Extremities: no cyanosis and no clubbing Skin: normal turgor; no lesions Neurologic: Motor/Sensory: no tremor and no asterixis Psychiatric: Orientation: alert and oriented x 3 Results & Data ([facility]) Vital Signs (Past 12 Hours) Vital Signs Temp Pulse Pulse Pulse Resp BP BP 07/30/21 09:00 48 L 96/60 L 07/30/21 08:47 50 L 130/86 07/30/21 08:43 46 L 86/52 L 07/30/21 08:20 54 L 117/77 07/30/21 08:00 63 40 H 130/72 07/30/21 07:40 58 L 148/78 H 07/30/21 07:29 36.4 C L 60 07/30/21 03:19 157/101 H 07/30/21 03:08 36.4 C L 66 22 185/106 H 07/29/21 23:01 36.3 C L 60 24 174/103 H Pulse Ox 07/30/21 09:00 07/30/21 08:47 07/30/21 08:43 07/30/21 08:20 07/30/21 08:00 95 07/30/21 07:40 07/30/21 07:29 07/30/21 03:19 07/30/21 03:08 92 07/29/21 23:01 94 Laboratory Results Laboratory Results - last 24 hr 07/29/21 07/29/21 07/29/21 11:27 16:47 21:00 WBC RBC Hgb Hct MCV MCH MCHC RDW Std Deviation RDW Coeff of Lisseth Plt Count MPV Sodium Potassium Chloride Carbon Dioxide Anion Gap BUN Creatinine Est Cr Clr Drug Dosing Est GFR ( Amer) Est GFR (Non-Af Amer) BUN/Creatinine Ratio Glucose POC Glucose 248 H 195 H 151 H Calcium Phosphorus Troponin I C-Reactive Protein Albumin 07/30/21 07/30/21 07/30/21 05:33 05:33 06:56 WBC 11.70 H RBC 4.41 L Hgb 12.7 L Hct 38.1 L MCV 86.4 MCH 28.8 MCHC 33.3 RDW Std Deviation 50.5 H RDW Coeff of Lisseth 15.8 H Plt Count 201 MPV 9.5 Sodium 132 L Potassium 5.3 H Chloride 92 L Carbon Dioxide 24 Anion Gap 16.0 H BUN 151 H D Creatinine 11.60 H* D Est Cr Clr Drug Dosing Not Reportable Est GFR ( Amer) 5.0 Est GFR (Non-Af Amer) 4.3 BUN/Creatinine Ratio 13.0 Glucose 85 POC Glucose 101 H Calcium 10.1 Phosphorus 8.9 H Troponin I C-Reactive Protein 11.20 H Albumin 2.5 L 07/30/21 09:29 WBC RBC Hgb Hct MCV MCH MCHC RDW Std Deviation RDW Coeff of Lisseth Plt Count MPV Sodium Potassium Chloride Carbon Dioxide Anion Gap BUN Creatinine Est Cr Clr Drug Dosing Est GFR ( Amer) Est GFR (Non-Af Amer) BUN/Creatinine Ratio Glucose POC Glucose Calcium Phosphorus Troponin I Pending C-Reactive Protein Albumin PG Care Time/CCT Total # of Minutes Spent Total Time Spent with Patient: Total time spent is greater than 50% in coordination of care (as documented) at patient's floor/unit and/or counseling patient: Coding Level of Care Code 15096 Subseq Hosp Care Lvl 3 Diagnoses ESRD (end stage renal disease) on dialysis N18.6; Z99.2 History of kidney transplant Z94.0 Pneumonia due to COVID-19 virus U07.1; J12.82
[2021-07-30 10:14] LABS: Base Excess ABG 1.4 mEq/L (-9-1.8); HCO3 ABG 26 mmol/L (19-24); Oxygen Saturation ABG 87.6 % (90-95); PCO2 ABG 42 mmHg (35-46); PO2 ABG 53 mmHg (80-95); pH ABG 7.41 (7.35-7.45)
--- NOTE | 2021-07-30 10:27 | XRay Report ---
XR chest 1V portable HISTORY: 55 years-old Male hypoxia acute hypoxia COMPARISON: Chest radiograph 07/28/2021 TECHNIQUE: Portable AP view of the chest FINDINGS: Cardiac silhouette is enlarged. Calcified plaque the thoracic aorta. No pneumothorax or large pleural effusion. Extensive bilateral airspace opacities appear generally stable. Degenerative changes of th e shoulders and spine. IMPRESSION: Unchanged extensive bilateral airspace opacities. ACT 112: Negative or not required by law. The above report was generated using voice recognition software. It may contain grammatical, syntax o r spelling errors. Electronically signed by: Garland Angel M.D. 07/30/2021 10:26 AM
[2021-07-30] MEDS: amLODIPine BESYLATE 5 MG TAB PO SCH (10:45)
[2021-07-30] MEDS: ATORVASTATIN 40 MG TAB PO SCH (10:45)
[2021-07-30] MEDS: VITAMIN B COMPLEX TAB PO SCH (10:46)
[2021-07-30] MEDS: NEPHROCAPS PO SCH (10:46)
[2021-07-30] MEDS: guaiFENesin 600 MG TABCR PO SCH ×2 (10:47→20:37)
[2021-07-30 11:13] LABS: Allen Test Pos (Pos)
[2021-07-30] MEDS: HEPARIN SOD (PORCINE) 1000 UNIT/ML IV SCH ×3 (11:15→11:18)
[2021-07-30] MEDS: CEFEPIME 500 MG in SYRINGE 0 ML IV SCH (11:15)
[2021-07-30] MEDS: dexAMETHasone 10 MG in SYRINGE 0 ML IV SCH (11:15)
--- NOTE | 2021-07-30 11:27 | Critical Care Consultation ---
Date of Consultation July 30, 2021 Assessment & Plan (1) Pneumonia due to 2019-nCoV: (2) ARDS (adult respiratory distress syndrome): (3) ESRD (end stage renal disease) on dialysis: 55-year-old male with a history of end-stage renal disease admitted to the hospital due to COVID-19 viral pneumonia and ARDS. Neurologic: No issues with mentation at present. He does have periods of hypoactive delirium. This is likely related to hypoxia and his elevated BUN. We will continue to monitor closely. Pulmonary: Requiring high amounts of supplemental oxygen via high flow nasal cannula. He essentially has ARDS. He is agreeable to intubation and mechanical ventilation if necessary. ABG reviewed from today. Appropriate acid-base status. PO2 53 on high flow oxygen. Cardiovascular: Bradycardia likely related to hemodialysis. We will continue to monitor his heart rate. Hold all AV silver blocking agents. We will continue to monitor hypertension. Maintain maps above 65 mmHg. We will consider central line placement for vasopressor support. Gastrointestinal: NPO for today given tenuous respiratory status. Pantoprazole 40 mg daily Renal: 2 L fluid removal during hemodialysis. Renal following. Appreciate their input. Lactate 1.0 which would indicate that he is perfusing well. Infectious disease: Continue dexamethasone 10 mg daily. Continue empiric cefepime and doxycycline. Blood cultures from 07/21 -. Hematologic: No significant concerns. Endocrine: Continue to monitor blood sugars. Lines and tubes: AV fistula left arm VTE prophylaxis: Heparin 5000 units 3 times daily CODE STATUS: Full code Family at bedside: None available at bedside as he is currently in the COVID-19 unit Disposition: Remain in the ICU. Patient is critically ill. Prognosis is very guarded. Palliative care consultation placed given the significant comorbidities and acute illness. Case discussed at bedside with patient's RN and hospitalist. Patient also discussed this pulmonary rounds with pharmacy, case management and motion picture film examiner. I have personally spent 44 minutes of critical care time in the direct management of this patient. This is a life/limb threatening event. This includes time spent evaluating patient, direct bedside care, chart review, placing orders , interpretation of diagnostic studies, discussion with consultants, patient, and family members, as well as other required patient management activities. This time is exclusive of all separately billable procedures, and teaching time and separate from and in addition to any other critical care service time. Thank you for allowing us to participate in the care of this patient. History of Present Illness Reason for Consultation: COVID-19 pneumonia and hypotension Attending Physician: Jose Brice DO History of Present Illness 55-year-old male with a past medical history of ESRD on hemodialysis failed transplant, obesity and osteoporosis who presented to the hospital on 07/21/2021 due to increasing shortness of breath. He was actually discharged from the hospital on 07/18/2021 due to Covid pneumonia. ICU was consulted due to bradycardia, hypotension and hypoxemia. During hemodialysis today he became bradycardic in the 40s and dizzy. He received 0.5 mg of atropine with improvement of his blood pressure. 100 mL bolus of fluid was given through hemodialysis. Approximately 2 L of ultrafiltrate was removed during the dialysis session. She currently denies any chest pain. He is requiring high flow oxygen at a rate of 60 L and 100% FiO2. He endorses mild shortness of breath. He is currently on Decadron 10 mg daily. His dose was increased from 6 mg to 10 mg on 07/25/2021. He was not a candidate for remdesivir and never received it. He is currently on 6 days of treatment with cefepime and doxycycline. Intubation was discussed with the patient at bedside. Patient noted that he would only like to be intubated if it was "100% necessary". Labs are remarkable for mild leukocytosis of 11,700. Hemoglobin 12.7. Potassium 5.3, sodium 132, creatinine 1.6, BUN 151, albumin 2.5, CRP 11.2. His CRP level was as high as 27 on 07/28/2021. Blood cultures from 07/21/2021 -. Chest x-ray demonstrates persistent severe bilateral interstitial and alveolar infiltrates. Chest CTA 07/21/2021 - for pulmonary embolism. Diffuse multifocal airspace opacities seen. Trace pleural effusions and trace pericardial effusion. He is currently on cefepime and doxycycline. Heparin 5000 units every 8 hours for DVT prophylaxis. Allergies Allergy/AdvReac Type Severity Reaction Status Date / Time adhesive Allergy Mild SKIN Verified 07/21/21 13:35 IRRITATION morphine AdvReac Intermediate "WACKS ME Verified 07/21/21 13:35 OUT, DO THINGS THAT CAN'T REMEMBER" aspirin AdvReac Mild NOSE BLEED Verified 07/21/21 13:35 Home Medications Medication Instructions Recorded Confirmed Type atorvastatin 40 mg tablet (Lipitor) 40 mg PO QAM 07/13/21 07/21/21 History sodium polystyrene sulfonate 15 g PO 4XWK 07/13/21 07/21/21 History sucroferric oxyhydroxide 500 mg 1,000 mg PO TIDM 07/13/21 07/21/21 History chewable tablet (Velphoro) vitamin B complex-vitamin C-folic 1 tab PO QAM 07/13/21 07/21/21 History acid 0.8 mg tablet (Nephro-Monserrat) amlodipine 5 mg tablet (Norvasc) 5 mg PO QAM 30 Days #30 tab 07/17/21 07/21/21 Rx metoprolol tartrate 50 mg tablet 50 mg PO BID 30 Days #60 tab 07/17/21 07/21/21 Rx Patient History Medical History (Updated 07/30/21 @ 11:42 by Fede Christianson MD) Anemia due to chronic kidney disease ARDS (adult respiratory distress syndrome) Chronic back pain Diabetes mellitus diet controlled Esophageal reflux controlled ESRD (end stage renal disease) on dialysis [facility]lsis clinic [facility]/-- History of blood transfusion 4 years ago (in setting of plasmaphoresis for kidney issues) Hx of malignant skin melanoma Hypercholesterolemia Hyperparathyroidism Hypertension Kidney transplant failure Mild aortic valve stenosis Per 12/06/19 ECHO Obesity Osteoarthritis Surgical History H/O radical excision of skin lesion back r/t melanoma History of bowel resection r/t diverticulitis History of cataract surgery bilateral History of colonoscopy History of colostomy History of colostomy reversal ~2006 History of esophagogastroduodenoscopy (EGD) 08/20/19: MAC sedation at [facility] History of kidney transplant ~2008 S/P arteriovenous (AV) fistula creation left arm Family History Mother Family history of diabetes mellitus Father FHx: myocardial infarction, Onset Age: 69 Other No family history of adverse response to anesthesia Denies family history of Crohn's disease Colorectal cancer Ulcerative colitis Social History Smoking Status: Never smoker Second Hand Exposure: No; Hx Alcohol Use: Yes Alcohol type: beer and wine Alcohol Intake Frequency: Monthly or Less Hx Substance Use: No Preferred Language: Barbadian Communication Ability: Effective Motor Bike Mechanic Required: No Beliefs That Will Affect Care: None marital status: Current Living Situation: Spouse Feels Safe at Home: Yes Assistive Devices: Oxygen - Continuous Review of Systems Review of Systems: All systems reviewed & are unremarkable except as noted in HPI & below Physical Exam Physical Exam: Constitutional: Frail appearing male in mild distress. Eyes: Pupils are equal round and reactive to light. Conjunctivae are normal. Anicteric sclera. Ears nose, mouth and throat: No obvious deformities. Thick neck. Neck: Trachea is midline. Visual inspection is normal. Respiratory: Coarse breath sounds on the ventilator. Cardiovascular: Regular rate and rhythm. No murmurs. Trace edema. Gastrointestinal: Normal bowel sounds, soft, nontender and nondistended. No hepatosplenomegaly noted. Musculoskeletal: No cyanosis. Patient is able to move all extremities. Skin: No rashes, warm dry and intact. Neurologic: No obvious focal neurological deficits seen. Psychiatric: Alert and oriented x3 with a euthymic affect. Results & Data Results & Data ([facility]) Vital Signs (Past 12 Hours) Vital Signs Temp Pulse Pulse Pulse Resp BP BP 07/30/21 10:15 65 84/55 L 07/30/21 10:00 62 97/49 L 07/30/21 09:50 54 L 107/57 L 07/30/21 09:40 63 91/59 L 07/30/21 09:30 60 96/68 L 07/30/21 09:20 56 L 93/56 L 07/30/21 09:15 54 L 122/21 L 07/30/21 09:00 48 L 96/60 L 07/30/21 08:50 48 L 37 H 07/30/21 08:47 50 L 130/86 07/30/21 08:43 46 L 86/52 L 07/30/21 08:20 54 L 117/77 07/30/21 08:00 63 40 H 130/72 07/30/21 07:40 58 L 148/78 H 07/30/21 07:29 97.5 F L 60 07/30/21 03:19 157/101 H 07/30/21 03:08 97.5 F L 66 22 185/106 H Pulse Ox 07/30/21 10:15 07/30/21 10:00 07/30/21 09:50 10/25/21 09:40 07/30/21 09:30 07/30/21 09:20 07/30/21 09:15 07/30/21 09:00 07/30/21 08:50 93 07/30/21 08:47 07/30/21 08:43 07/30/21 08:20 07/30/21 08:00 95 07/30/21 07:40 07/30/21 07:29 07/30/21 03:19 07/30/21 03:08 92 Coding Level of Care Code Critical Care 1st 30-74 mins Diagnoses Pneumonia due to 2019-nCoV U07.1; J12.82 ARDS (adult respiratory distress syndrome) J80 ESRD (end stage renal disease) on dialysis N18.6; Z99.2 Time Spent (min) 44
--- NOTE | 2021-07-30 11:47 | Palliative Care Consultation ---
Date of Consultation July 30, 2021 Assessment & Plan (1) Palliative care encounter: Mr. Levy is a 55 year old male who presented to the [facility] 8 days ago with increasing shortness of breath. He was recently admitted on 07/18 for covid-19 PNA. Additional PMH includes: ESRD on HD s/p donor transplant in 2007 and rejection in 2016 due to non-compliance with medications, HTN, mild aortic stenosis, DM2, and HTN. The patient has not been vaccinated for covid-19. The patients respiratory status has worsened overnight and he was transitioned to ICU level care. Palliative Medicine was consulted to discuss overall goals of care. I met with Marcos and he was AAOx3 and able to have a meaningful conversation. He was on Hi-Flow 90% FiO2 and 60L. We discussed his overall medical condition and unfortunate scenario that he is in. We discussed code status and intubation. I explained in detail what intubation means and the care someone who is intubated receives. Marcos, to this point, has declined proning as he states that it causes too much distress for him. We discussed sedation and cause and effect with hypotension. We also discussed vasoactive medications that he likely would require in order to attempt dialysis if intubated. He was very emotional during the conversation and quite anxious. He repeatedly stated that he 'does not want to ' and 'you don't understand, just save me, please'. He indicated that he so much left to live for, including spending time with his grand kids. He has not been able to do any video calling with his , Susana. I do think this could help Marcos from an anxiety standpoint. I called Susana at [phone]. She is a SUPERVISOR OF WAY at [employer] and was able to verbalize understanding about the above. She is realistic knowing that Marcos may not do well and understands the decisions she will be making if he is intubated. We did discuss the alternative to intubation, including GROWTH HACKER. With the unfortunate reality of Marcos's extensive kidney disease, it is unlikely that he would have a meaningful recovery. Marcos and I did discuss a trach and he indicated that if he did not show improvement after being intubated short term, he would NOT want a tracheostomy. For now, continue aggressive care, including intubation in case of further r espiratory decline. This was all discussed with the ICU physician, Dr. Christianson, the Hospitalist, Dr. Brice, and case management. Palliative will follow to continue to offer support to the family. (2) Hypoxia: Being treated for COVID-19 PNA. Patient was unvax. Currently on Hi-Flow 90% FiO2 and 60L. SpO2 ranges 88-95% during my encounter. (3) ESRD (end stage renal disease) on dialysis: Patient received a kidney transplant in 2007 and rejection in 2015 due to medication non-compliance. History of Present Illness Reason for Consultation: Goals of care Requesting Physician: Dr. Christianson Attending Physician: Jose Brice, DO History of Present Illness Mr. Levy is a 55 year old male who presented to the [facility] 8 days ago with increasing shortness of breath. He was recently admitted on 07/18 for covid-19 PNA. Additional PMH includes: ESRD on HD s/p donor transplant in 2007 and rejection in 2015 due to non-compliance with medications, HTN, mild aortic stenosis, DM2, and HTN. The patient has not been vaccinated for covid-19. The patients respiratory status has worsened overnight and he was transitioned to ICU level care. Palliative Medicine was consulted to discuss overall goals of care. Please see A/P for further details. Thanks for involving Palliative Medicine with this unfortunate individual. Allergies Allergy/AdvReac Type Severity Reaction Status Date / Time adhesive Allergy Mild SKIN Verified 07/21/21 13:35 IRRITATION morphine AdvReac Intermediate "WACKS ME Verified 07/21/21 13:35 OUT, DO THINGS THAT CAN'T REMEMBER" aspirin AdvReac Mild NOSE BLEED Verified 07/21/21 13:35 Home Medications Medication Instructions Recorded Confirmed Type atorvastatin 40 mg tablet (Lipitor) 40 mg PO QAM 07/13/21 07/21/21 History sodium polystyrene sulfonate 15 g PO 4XWK 07/13/21 07/21/21 History sucroferric oxyhydroxide 500 mg 1,000 mg PO TIDM 07/13/21 07/21/21 History chewable tablet (Velphoro) vitamin B complex-vitamin C-folic 1 tab PO QAM 07/13/21 07/21/21 History acid 0.8 mg tablet (Nephro-Monserrat) amlodipine 5 mg tablet (Norvasc) 5 mg PO QAM 30 Days #30 tab 07/17/21 07/21/21 Rx metoprolol tartrate 50 mg tablet 50 mg PO BID 30 Days #60 tab 07/17/21 07/21/21 Rx Patient History Medical History (Updated 07/30/21 @ 23:27 by EULALIO Rojas) Anemia due to chronic kidney disease ARDS (adult respiratory distress syndrome) Chronic back pain Diabetes mellitus diet controlled Esophageal reflux controlled ESRD (end stage renal disease) on dialysis [facility]aylsis clinic [facility]/ History of blood transfusion 4 years ago (in setting of plasmaphoresis for kidney issues) Hx of malignant skin melanoma Hypercholesterolemia Hyperparathyroidism Hypertension Kidney transplant failure Mild aortic valve stenosis Per 12/06/19 ECHO Obesity Osteoarthritis Palliative care encounter Surgical History H/O radical excision of skin lesion back r/t melanoma History of bowel resection r/t diverticulitis History of cataract surgery bilateral History of colonoscopy History of colostomy History of colostomy reversal ~2006 History of esophagogastroduodenoscopy (EGD) 08/20/19: MAC sedation at [facility] History of kidney transplant ~2008 S/P arteriovenous (AV) fistula creation left arm Family History Mother Family history of diabetes mellitus Father FHx: myocardial infarction, Onset Age: 69 Other No family history of adverse response to anesthesia Denies family history of Crohn's disease Colorectal cancer Ulcerative colitis Social History Smoking Status: Never smoker Second Hand Exposure: No; Hx Alcohol Use: Yes Alcohol type: beer and wine Alcohol Intake Frequency: Monthly or Less Hx Substance Use: No Preferred Language: Tamazight Communication Ability: Effective Inspection Clerk Required: No Beliefs That Will Affect Care: None marital status: Current Living Situation: Spouse Feels Safe at Home: Yes Assistive Devices: Oxygen - Continuous Review of Systems Review of Systems: Holcomb System Assessment Scale: Pain 0/3 SOB: 3/3 Tiredness: 1/3 Nausea: 0/3 Palliative Performance Scale: 30% Physical Exam Constitutional: + acute distress, + ill appearing, cooperative and + in distress ENMT: Mouth: + dry oral mucous membranes Respiratory: + labored breathing, + cough and + tachypneic Auscultation: + rhonchi Cardiovascular: Rate/Rhythm: regular rate and regular rhythm Heart Sounds: normal S1 and normal S2 Extremities: normal capillary refill and + edema Gastrointestinal (Abdomen): Inspection/Auscultation: abdomen normal to inspection Skin: + pallor Psychiatric: Orientation: alert and oriented x 3 Insight: good insight Judgement: good judgement Results & Data ([facility]) Vital Signs (Past 12 Hours) Vital Signs Temp Pulse Pulse Pulse Resp BP BP 07/30/21 10:15 65 84/55 L 07/30/21 10:00 62 97/49 L 07/30/21 09:50 54 L 107/57 L 07/30/21 09:40 63 91/59 L 07/30/21 09:30 60 96/68 L 07/30/21 09:20 56 L 93/56 L 07/30/21 09:15 54 L 122/21 L 07/30/21 09:00 48 L 96/60 L 07/30/21 08:50 48 L 37 H 07/30/21 08:47 50 L 130/86 07/30/21 08:43 46 L 86/52 L 07/30/21 08:20 54 L 117/77 07/30/21 08:00 63 40 H 130/72 07/30/21 07:40 58 L 148/78 H 07/30/21 07:29 36.4 C L 60 07/30/21 03:19 157/101 H 07/30/21 03:08 36.4 C L 66 22 185/106 H Pulse Ox 07/30/21 10:15 07/30/21 10:00 07/30/21 09:50 07/30/21 09:40 07/30/21 09:30 07/30/21 09:20 07/30/21 09:15 07/30/21 09:00 07/30/21 08:50 93 07/30/21 08:47 07/30/21 08:43 07/30/21 08:20 07/30/21 08:00 95 07/30/21 07:40 07/30/21 07:29 07/30/21 03:19 07/30/21 03:08 92 PG Care Time/CCT Total # of Minutes Spent Total Time Spent with Patient: Total time spent is greater than 50% in coordination of care (as documented) at patient's floor/unit and/or counseling patient: 100 minutes with > 50% of that time spent assessing the patient, discussing goals of care with the patient, and collaborating with IDT Coding Level of Care Code 22180 Initial Inpt Care Lvl 3 Diagnoses Palliative care encounter Z51.5 Hypoxia R09.02 ESRD (end stage renal disease) on dialysis N18.6; Z99.2 Time Spent (min) 100
[2021-07-30] MEDS: DOXYCYCLINE HYCLATE 100 MG in DEXTROSE 5% 100 ML IV SCH (13:45)
[2021-07-30] MEDS ORDERED: amLODIPine BESYLATE 5 MG TAB PO ONE (14:15)
[2021-07-30] MEDS: hydrALAZINE HCL 20 MG/ML VIAL IV PRN (14:23)
[2021-07-30] MEDS ORDERED: METOPROLOL TARTRATE 25 MG TAB PO SCH (21:00)
[2021-07-31] MEDS: DOXYCYCLINE HYCLATE 100 MG in DEXTROSE 5% 100 ML IV SCH (00:47)
--- NOTE | 2021-07-31 05:14 | Electrocardiogram Report ---
Test Reason : Blood Pressure : / mmHG Vent. Rate : 059 BPM Atrial Rate : 059 BPM P-R Int : 168 ms QRS Dur : 112 ms QT Int : 440 ms P-R-T Axes : 026 018 044 degrees QTc Int : 435 ms Sinus bradycardia Otherwise normal ECG When compared with ECG of 21-JUL-2021 11:54, No significant change was found Confirmed by Nick Mo ([id number]) on 07/31/2021 5:13:47 AM Referred By: Miesha Awad Confirmed By:Nick Mo
[2021-07-31] MEDS: HEPARIN SOD 5,000 UNIT/0.5 ML VIAL SQ SCH ×3 (05:47→22:22)
[2021-07-31 06:27] LABS: Eosinophils # (auto) 0.03 K/uL (0-0.5); Eosinophils % (auto) 0.4 %; Hemoglobin 11.2 g/dL (14.0-18.0); Immature Granulocytes # (auto) 0.05 K/uL (0.00-0.02); Immature Granulocytes % (auto) 0.6 %; Lymphocytes % (auto) 7.1 %; Mean Corpuscular Hemoglobin 28.6 pg (25-34); Mean Corpuscular Hgb Conc 32.9 g/dL (32-36); Mean Corpuscular Volume 86.7 fL (80-100); Mean Platelet Volume 9.4 fL (7.4-10.4); Monocytes # (auto) 0.35 K/uL (0.11-0.59); Monocytes % (auto) 4.2 %; Neutrophils # (auto) 7.38 K/uL (1.4-6.5); Neutrophils % (auto) 87.7 %; Platelet Count 166 K/uL (130-400); RDW Coefficient of Variation 16.1 % (11.5-14.5); RDW Standard Deviation 51.5 fL (36.4-46.3); Red Blood Count 3.92 M/uL (4.7-6.1); White Blood Count 8.41 K/uL (4.8-10.8)
[2021-07-31] MEDS ORDERED: SODIUM CHLORIDE 0.9% 1000ML 1,000 ML IV PRN (07:00)
[2021-07-31 07:22] LABS: BUN Creatinine Ratio 11.4 (10-20); Blood Urea Nitrogen 105 mg/dl (7-18); Calcium 9.9 mg/dl (8.5-10.1); Carbon Dioxide 23 mmol/L (21-32); Chloride 96 mmol/L (98-107); Est GFR (African American) 6.6 ml/min; Est GFR (Non-African American) 5.7 ml/min; Glucose 102 mg/dl (70-99); Magnesium 2.5 mg/dl (1.8-2.4); Potassium 5.3 mmol/L (3.5-5.1); Sodium 133 mmol/L (136-145)
[2021-07-31] MEDS: ONDANSETRON INJ 2 MG/ML 2 ML VIAL IV PRN (07:43)
[2021-07-31] MEDS ORDERED: ATROPINE SULFATE 0.1 MG/ML 10ML SYR IV PRN ×2 (08:12→11:15)
[2021-07-31] MEDS: dexAMETHasone 10 MG in SYRINGE 0 ML IV SCH (08:19)
[2021-07-31] MEDS: CEFEPIME 500 MG in SYRINGE 0 ML IV SCH (08:19)
[2021-07-31] MEDS: ATORVASTATIN 40 MG TAB PO SCH (08:20)
[2021-07-31] MEDS: NEPHROCAPS PO SCH (08:20)
[2021-07-31] MEDS: VITAMIN B COMPLEX TAB PO SCH (08:20)
[2021-07-31] MEDS: guaiFENesin 600 MG TABCR PO SCH ×2 (08:21→22:21)
[2021-07-31] MEDS: CALCIUM CARBONATE 500 MG CHEWABLE TAB PO SCH ×3 (08:21→17:50)
--- NOTE | 2021-07-31 09:06 | XRay Report ---
XR chest 1V portable CLINICAL HISTORY: Resp failure TECHNIQUE: Single frontal radiograph of the chest was obtained. Comparison: Comparison is made to chest one view 07/30/2021 FINDINGS: No lines and tubes are seen. The cardiomediastinal silhouette is obscured. Again noted are multifocal airspace opacities throughout the lungs. No evidence of pleural effusion or pneumothorax. IMPRESSION: Multifocal airspace opacities throughout the lungs. This is unchanged from prior. ACT 112: Negative or not required by law. Electronically signed by: Jose Hopkins M.D. 07/31/2021 9:04 AM
[2021-07-31] MEDS: INSULIN ASPART 100 UNITS/ML 3 ML PEN SC SCH ×4 (09:21→21:15)
[2021-07-31] MEDS: INSULIN GLARGINE SOLOSTAR 100 UNITS/ML 3 ML PEN SC SCH (09:21)
--- NOTE | 2021-07-31 10:05 | Nephrology Progress Note ---
Date of Service July 31, 2021 Assessment & Plan (1) ESRD (end stage renal disease) on dialysis: Plan: HD orders entered into EHR and reviewed with nurse. UF goal ~2-3 L as tolerated given low BP. 2K bath for hyperkalemia. Update metabolic profile tomorrow AM. Medications appropriately dosed for kidney dysfunction and dialysis. AVF functioning well. Remains on SPS on non-dialysis days for history of hyperkalemia, I will hold the medication with monitoring while inpatient. (2) History of kidney transplant: Plan: Status 7 currently due to hospitalization and COVID. (3) Pneumonia due to COVID-19 virus: Plan: Remains on Decadron and antibiotic therapy. Cefepime dosed appropriately for kidney dysfunction. Admission and Anticipated Discharge Date Admission Date: July 23, 2021 Subjective No acute events overnight. Marcos was seen and evaluated prior to and during HD this AM. He is tolerating HD well. Dialysis treatment orders were coordinated with the HD nurse. Review of Systems Review of Systems: All systems reviewed & are unremarkable except as noted in HPI & below Constitutional: + fatigue and + weakness; no fever and no chills Eyes: no problem reported Ear, Nose, Mouth, Throat: no problem reported Respiratory: + dyspnea; no pain on inspiration Cardiovascular: no problem reported Gastrointestinal: no problem reported Musculoskeletal: no problem reported Integumentary: no problem reported Neurologic: no problem reported Psychiatric: no problem reported Endocrine: no problem reported Hematologic / Lymphatic: no problem reported Physical Exam Constitutional: + acute distress and + ill appearing Eyes: no scleral abnormality and no corneal abnormality Neck: normal visual inspection and trachea midline Respiratory: + labored breathing Auscultation: + rhonchi Cardiovascular: Rate/Rhythm: regular rate and regular rhythm Heart Sounds: normal S1, normal S2 and + murmur Extremities: + AV fistula; no edema Musculoskeletal: Extremities: no cyanosis and no clubbing Skin: normal turgor; no lesions Neurologic: Motor/Sensory: no tremor and no asterixis Psychiatric: Orientation: alert and oriented x 3 Results & Data ([facility]) Vital Signs (Past 12 Hours) Vital Signs Temp Pulse Pulse Resp BP BP Pulse Ox 07/31/21 07:37 77 18 93 07/31/21 06:16 71 26 H 93 07/31/21 06:00 73 27 H 85 L 07/31/21 05:46 36.5 C 07/31/21 05:45 72 26 H 93 07/31/21 05:30 60 24 160/77 H 92 07/31/21 05:15 67 26 H 94 07/31/21 05:00 65 29 H 143/113 H 93 07/31/21 04:45 73 24 92 07/31/21 04:30 64 23 167/87 H 93 07/31/21 04:15 65 25 H 95 07/31/21 04:00 65 19 93 07/31/21 03:45 64 16 92 07/31/21 03:37 36.5 C 07/31/21 03:30 56 L 25 H 96 07/31/21 03:21 55 L 25 H 94 07/31/21 03:15 54 L 26 H 95 07/31/21 03:00 55 L 27 H 143/74 H 96 07/31/21 02:45 59 L 26 H 96 07/31/21 02:30 57 L 25 H 138/73 96 07/31/21 02:15 55 L 25 H 96 07/31/21 02:00 56 L 24 138/78 96 07/31/21 01:45 64 28 H 94 07/31/21 01:30 70 20 159/82 H 159/82 H 96 07/31/21 01:15 63 27 H 92 07/31/21 01:00 63 24 163/88 H 95 07/31/21 00:46 36.5 C 07/31/21 00:45 67 30 H 97 07/31/21 00:40 61 26 H 97 07/31/21 00:30 169/95 H 07/31/21 00:20 63 26 H 95 07/31/21 00:00 61 31 H 166/86 H 96 07/30/21 23:40 57 L 22 96 07/30/21 23:30 165/91 H 07/30/21 23:20 56 L 29 H 97 07/30/21 23:00 60 29 H 157/99 H 98 07/30/21 22:47 36.6 C 07/30/21 22:40 55 L 12 96 07/30/21 22:30 141/74 H 07/30/21 22:20 59 L 60 22 96 Laboratory Results Laboratory Results - last 24 hr 07/30/21 07/30/21 07/30/21 09:29 09:55 10:32 WBC RBC Hgb Hct MCV MCH MCHC RDW Std Deviation RDW Coeff of Lisseth Plt Count MPV Immature Gran % (Auto) Neut % (Auto) Lymph % (Auto) [place] % (Auto) Eos % (Auto) Baso % (Auto) Neut # (Auto) Lymph # (Auto) [place] # (Auto) Eos # (Auto) Baso # (Auto) Immature Gran # (Auto) ABG pH 7.41 ABG pCO2 42 ABG pO2 53 L ABG HCO3 26 H ABG O2 Saturation 87.6 L ABG Base Excess 1.4 [place] Test Pos Barometric Pressure 729.1 Oxygen Given Sodium Potassium Chloride Carbon Dioxide Anion Gap BUN Creatinine Est Cr Clr Drug Dosing Est GFR ( Amer) Est GFR (Non-Af Amer) BUN/Creatinine Ratio Glucose POC Glucose Lactate 1.0 Calcium Phosphorus Magnesium Troponin I < 0.015 07/30/21 07/30/21 07/30/21 12:29 16:41 20:05 WBC RBC Hgb Hct MCV MCH MCHC RDW Std Deviation RDW Coeff of Lisseth Plt Count MPV Immature Gran % (Auto) Neut % (Auto) Lymph % (Auto) [place] % (Auto) Eos % (Auto) Baso % (Auto) Neut # (Auto) Lymph # (Auto) [place] # (Auto) Eos # (Auto) Baso # (Auto) Immature Gran # (Auto) ABG pH ABG pCO2 ABG pO2 ABG HCO3 ABG O2 Saturation ABG Base Excess [place] Test Barometric Pressure Oxygen Given Sodium Potassium Chloride Carbon Dioxide Anion Gap BUN Creatinine Est Cr Clr Drug Dosing Est GFR ( Amer) Est GFR (Non-Af Amer) BUN/Creatinine Ratio Glucose POC Glucose 101 H 148 H 160 H Lactate Calcium Phosphorus Magnesium Troponin I 07/31/21 07/31/21 07/31/21 05:41 05:41 07:53 WBC 8.41 RBC 3.92 L Hgb 11.2 L Hct 34.0 L MCV 86.7 MCH 28.6 MCHC 32.9 RDW Std Deviation 51.5 H RDW Coeff of Lisseth 16.1 H Plt Count 166 MPV 9.4 Immature Gran % (Auto) 0.6 Neut % (Auto) 87.7 Lymph % (Auto) 7.1 Young % (Auto) 4.2 Eos % (Auto) 0.4 Baso % (Auto) 0.0 Neut # (Auto) 7.38 H Lymph # (Auto) 0.60 L Young # (Auto) 0.35 Eos # (Auto) 0.03 Baso # (Auto) 0.00 Immature Gran # (Auto) 0.05 H ABG pH ABG pCO2 ABG pO2 ABG HCO3 ABG O2 Saturation ABG Base Excess [place] Test Barometric Pressure Oxygen Given Sodium 133 L Potassium 5.3 H Chloride 96 L Carbon Dioxide 23 Anion Gap 14.0 H BUN 105 H Creatinine 9.22 H* D Est Cr Clr Drug Dosing Not Reportable Est GFR ( Amer) 6.6 Est GFR (Non-Af Amer) 5.7 BUN/Creatinine Ratio 11.4 Glucose 102 H POC Glucose 125 H Lactate Calcium 9.9 Phosphorus 10.0 H Magnesium 2.5 H Troponin I PG Care Time/CCT Total # of Minutes Spent Total Time Spent with Patient: Total time spent is greater than 50% in coordination of care (as documented) at patient's floor/unit and/or counseling patient: Coding Level of Care Code 46767 Subseq Hosp Care Lvl 3 Diagnoses ESRD (end stage renal disease) on dialysis N18.6; Z99.2 History of kidney transplant Z94.0 Pneumonia due to COVID-19 virus U07.1; J12.82
--- NOTE | 2021-07-31 11:28 | Hospitalist Progress Note ---
Date of Service July 31, 2021 Assessment & Plan (1) Acute respiratory failure with hypoxia: Plan: 2nd severe COVID-19 pneumonia and concern for ARDS. Pulmonary edema likely contributing, difficult to remove fluid with HD initially improved oxygen requirements after 3 HD sessions last week 07/30, having some distress, need to remove fluid but HR dropped and BP dropped HR improved with atropine, no further doses needed, metoprolol on hold still got 2L removed breathing a little easier today, down to 50L and 90%, was on 60L and 100% yesterday Elected to cover for bacterial superinfection given his significant clinical worsening on Friday along with elevated inflammatory markers. Remains on cefepime/doxy day #7 of each, finish today Deferred on MRSA coverage - MRSA swab neg. Remains on Dexamethasone 10mg/day to cover for development of ARDS. See below. (2) Pneumonia due to 2019-nCoV: Plan: had been improving then much worse on 07/25/21. transferred to [facility] COVID wing[facility]tele on 07[facility]. day #10 dexamethasone today - dose was increased from 6 to 10mg on 07/25/21 to cover for possibility of developing ARDS. not a candidate for Remdesivir treatment crp and procal both high - abx initiated on 07/25/21 - continue cefepime/doxy - day #7, stop after today flutter valve, IS, etc supportive care. unfortunately cannot prone - he attempted w/o succcess. not a candidate for Toci or Baricitinib CRP down to 11 from high of 27 breathing is less labored today guarded prognosis, needs HD daily for time being to keep lungs dry with ARDS (3) Sinus bradycardia: Plan: dropped to 40's on morning of 07/30 EKG showed sinus rhythm, no block responded to Atropine 0.5mg IV push, no further doses needed give Atropine again PRN metoprolol on hold was made ICU status on 07/30, can move back to PCU status this afternoon (4) Hypotension: Plan: occurred on 07/30, now resolved, actually hypertensive (5) Acute respiratory distress syndrome (ARDS) due to 2019 novel coronavirus: Plan: see above dexamethasone, try to remove fluid with HD daily (6) ESRD (end stage renal disease) on dialysis: Plan: [facility] nephrology typical HD schedule of M/W/F s/p 3 serial HD treatments with nice clinical improvement in O2 requirement last week plan for daily HD for now to try to remove volume, keep lungs dry tolerating HD much better today (7) Hyperparathyroidism: Plan: Secondary to ESRD Continue VELPHORO (8) Hypercholesterolemia: Plan: Continue atorvastatin LFTs nl this admission (9) Hypertension: Plan: hold Norvasc and metoprolol (10) Anemia due to chronic kidney disease: Plan: stable (11) DVT prophylaxis: Plan: heparin TID recent CTA chest neg for PE (12) Diabetes mellitus type 2 in nonobese: Plan: controlled at this time novolog SSI lantus 8 units daily Plan: move back to PCU status Admission and Anticipated Discharge Date Admission Date: July 23, 2021 Subjective patient having a much better day today, tolerating HD, goal is to remove 2.7 liters his BP and HR are much better + dyspnea and cough, no sputum production, + weakness he has an appetite, waiting until after HD to eat, had a BM yesterday, he thinks reviewed labs, Hb stable, Cr is [address] Loomis and Dr. Christianson assistance in management Review of Systems Review of Systems: All systems reviewed & are unremarkable except as noted in Subjective Physical Exam Physical Exam: General: well developed, well nourished, obese male, comfortable, no distress Neck: supple, trachea midline, normal thyroid Lungs: clear to auscultation bilaterally, tachypneic, belly breathing, no distress Heart: regular rate, S1 and S2, no murmur, peripheral pulses normal, capillary refill normal, no edema, LUE fistula with thrill and bruit Abdomen: soft, NT, distended, + BS, no hepatomegaly, normal to percussion Extremities: normal in appearance, no cyanosis, no petechiae, strength is 5/5 bilaterally Neuro: awake, cooperative, moves all extremities, no focal motor deficits, CN II-XII intact, sensation in extremities intact, normal speech Skin: warm, dry, no rash, normal turgor Psych: Awake, alert oriented x 3, calm and euthymic today Results & Data Results & Data ([facility]) Vital Signs (Past 12 Hours) Vital Signs Temp Pulse Pulse Pulse Resp BP BP 07/31/21 11:00 82 103/61 07/31/21 10:40 78 115/70 07/31/21 10:20 72 131/72 07/31/21 10:00 70 129/77 07/31/21 09:40 70 147/82 H 07/31/21 09:20 65 151/83 H 07/31/21 09:04 67 121/63 07/31/21 08:53 36.1 C L 72 07/31/21 07:37 77 18 07/31/21 06:16 71 26 H 07/31/21 06:00 73 27 H 07/31/21 05:46 36.5 C 07/31/21 05:45 72 26 H 07/31/21 05:30 60 24 160/77 H 07/31/21 05:15 67 26 H 07/31/21 05:00 65 29 H 143/113 H 07/31/21 04:45 73 24 07/31/21 04:30 64 23 167/87 H 07/31/21 04:15 65 25 H 07/31/21 04:00 65 19 07/31/21 03:45 64 16 07/31/21 03:37 36.5 C 07/31/21 03:30 56 L 25 H 07/31/21 03:21 55 L 25 H 07/31/21 03:15 54 L 26 H 07/31/21 03:00 55 L 27 H 143/74 H 07/31/21 02:45 59 L 26 H 07/31/21 02:30 57 L 25 H 138/73 07/31/21 02:15 55 L 25 H 07/31/21 02:00 56 L 24 138/78 07/31/21 01:45 64 28 H 07/31/21 01:30 70 20 159/82 H 159/82 H 07/31/21 01:15 63 27 H 07/31/21 01:00 63 24 163/88 H 07/31/21 00:46 36.5 C 07/31/21 00:45 67 30 H 07/31/21 00:40 61 26 H 07/31/21 00:30 169/95 H 07/31/21 00:20 63 26 H 07/31/21 00:00 61 31 H 166/86 H 07/30/21 23:40 57 L 22 07/30/21 23:30 165/91 H 07/30/21 23:20 56 L 29 H Pulse Ox 07/31/21 11:00 07/31/21 10:40 07/31/21 10:20 07/31/21 10:00 07/31/21 09:40 07/31/21 09:20 07/31/21 09:04 07/31/21 08:53 07/31/21 07:37 93 07/31/21 06:16 93 07/31/21 06:00 85 L 07/31/21 05:46 07/31/21 05:45 93 07/31/21 05:30 92 07/31/21 05:15 94 07/31/21 05:00 93 07/31/21 04:45 92 07/31/21 04:30 93 07/31/21 04:15 95 07/31/21 04:00 93 07/31/21 03:45 92 07/31/21 03:37 07/31/21 03:30 96 07/31/21 03:21 94 07/31/21 03:15 95 07/31/21 03:00 96 07/31/21 02:45 96 07/31/21 02:30 96 07/31/21 02:15 96 07/31/21 02:00 96 07/31/21 01:45 94 07/31/21 01:30 96 07/31/21 01:15 92 07/31/21 01:00 95 07/31/21 00:46 07/31/21 00:45 97 07/31/21 00:40 97 07/31/21 00:30 07/31/21 00:20 95 07/31/21 00:00 96 07/30/21 23:40 96 07/30/21 23:30 07/30/21 23:20 97 Laboratory Results Laboratory Results - last 24 hr 07/30/21 07/30/21 07/30/21 12:29 16:41 20:05 WBC RBC Hgb Hct MCV MCH MCHC RDW Std Deviation RDW Coeff of Lisseth Plt Count MPV Immature Gran % (Auto) Neut % (Auto) Lymph % (Auto) [place] % (Auto) Eos % (Auto) Baso % (Auto) Neut # (Auto) Lymph # (Auto) [place] # (Auto) Eos # (Auto) Baso # (Auto) Immature Gran # (Auto) Sodium Potassium Chloride Carbon Dioxide Anion Gap BUN Creatinine Est Cr Clr Drug Dosing Est GFR ( Amer) Est GFR (Non-Af Amer) BUN/Creatinine Ratio Glucose POC Glucose 101 H 148 H 160 H Calcium Phosphorus Magnesium 07/31/21 07/31/21 07/31/21 05:41 05:41 07:53 WBC 8.41 RBC 3.92 L Hgb 11.2 L Hct 34.0 L MCV 86.7 MCH 28.6 MCHC 32.9 RDW Std Deviation 51.5 H RDW Coeff of Lisseth 16.1 H Plt Count 166 MPV 9.4 Immature Gran % (Auto) 0.6 Neut % (Auto) 87.7 Lymph % (Auto) 7.1 [place] % (Auto) 4.2 Eos % (Auto) 0.4 Baso % (Auto) 0.0 Neut # (Auto) 7.38 H Lymph # (Auto) 0.60 L [place] # (Auto) 0.35 Eos # (Auto) 0.03 Baso # (Auto) 0.00 Immature Gran # (Auto) 0.05 H Sodium 133 L Potassium 5.3 H Chloride 96 L Carbon Dioxide 23 Anion Gap 14.0 H BUN 105 H Creatinine 9.22 H* D Est Cr Clr Drug Dosing Not Reportable Est GFR ( Amer) 6.6 Est GFR (Non-Af Amer) 5.7 BUN/Creatinine Ratio 11.4 Glucose 102 H POC Glucose 125 H Calcium 9.9 Phosphorus 10.0 H Magnesium 2.5 H Medications Administered Current Inpatient Medications Amlodipine Besylate (Amlodipine Besylate 5 Mg Tab) 5 mg PO [facility] Stop: 08/21/21 08:59 Last Admin: 07/30/21 10:45 Dose: Not Given Documented by: Atorvastatin Calcium (Atorvastatin 40 Mg Tab) 40 mg PO [facility] Stop: 08/21/21 08:59 Last Admin: 07/31/21 08:20 Dose: 40 mg Documented by: Atropine Sulfate (Atropine Sulfate 0.1 Mg/Ml 10ml Syr) 0.5 mg IV .for use during dialysis PRN PRN Reason: HR < 60 with symptoms Stop: 08/30/21 08:11 Benzonatate (Benzonatate 100 Mg Capsule) 200 mg PO Q8H PRN PRN Reason: Cough Stop: 08/24/21 07:01 Last Admin: 07/29/21 19:39 Dose: 200 mg Documented by: Calcium Carbonate (Calcium Carbonate 500 Mg Chewable Tab) 500 mg PO TIDM RUSSELL Stop: 08/22/21 16:59 Last Admin: 07/31/21 08:21 Dose: 500 mg Documented by: Dextromethorphan Polymer Complex (Dextromethorphan Polymr Complx 30 Mg/5 Ml Udp) 30 mg PO Q6H PRN PRN Reason: Cough Stop: 08/20/21 21:52 Last Admin: 07/30/21 15:53 Dose: 30 mg Documented by: Dextrose (Dextrose 50% 50 Ml Syringe) 25 - 50 ml IV UD PRN; Protocol PRN Reason: Hypoglycemia Protocol Stop: 08/21/21 14:44 Glucagon (Glucagon For Inj 1 Mg Vial) 1 mg IM UD PRN; Protocol PRN Reason: Hypoglycemia Protocol Stop: 08/21/21 14:44 Glucose (Glucose 40% Gel 15 Gm Tube) 15 - 30 gm PO UD PRN; Protocol PRN Reason: Hypoglycemia Protocol Stop: 08/21/21 14:44 Glucose (Glucose 10 Tabs/Tube) 4 - 8 tabs PO UD PRN; Protocol PRN Reason: Hypoglycemia Protocol Stop: 08/21/21 14:44 Guaifenesin (Guaifenesin 600 Mg Tabcr) 1,200 mg PO Q12 RUSSELL Stop: 08/20/21 21:54 Last Admin: 07/31/21 08:21 Dose: 1,200 mg Documented by: Heparin Sodium (Porcine) (Heparin Sod 5,000 Unit/0.5 Ml Vial) 5,000 units SQ Q8 RUSSELL Stop: 08/21/21 21:59 Last Admin: 07/31/21 05:47 Dose: 5,000 units Documented by: Hydralazine HCl (Hydralazine Hcl 20 Mg/Ml Vial) 10 mg IV Q6 PRN PRN Reason: Blood Pressure - High Stop: 08/29/21 14:06 Last Admin: 07/30/21 14:23 Dose: 10 mg Documented by: Cefepime HCl 500 mg/ Syringe 5.65 mls @ 5.5 mls/min IV DAILY [facility]; Protocol Stop: 08/01/21 08:59 Last Admin: 07/31/21 08:19 Dose: 5.5 mls/min Documented by: Dexamethasone 10 mg/ Syringe 2.5 mls @ 1 mls/min IV QAM RUSSELL Stop: 08/24/21 08:59 Last Admin: 07/31/21 08:19 Dose: 1 mls/min Documented by: Pantoprazole Sodium 40 mg/ (Syringe) 10 mls @ 5 mls/min IV DAILY@1100 [facility] Stop: 08/30/21 10:59 Sodium Chloride (Nss 1000ml) 1,000 mls @ 0 mls/hr IV .Q0M PRN PRN Reason: For Hemodialysis Use ONLY Stop: 07/31/21 12:59 Insulin Aspart (Insulin Aspart 100 Units/Ml 3 Ml Pen) 0 units SC ACHS [facility] Stop: 08/21/21 16:29 Last Admin: 07/31/21 09:21 Dose: Not Given Documented by: Insulin Glargine (Insulin Glargine Solostar 100 Units/Ml 3 Ml Pen) 8 units SC QAM [facility] Stop: 08/26/21 09:44 Last Admin: 07/31/21 09:21 Dose: 8 units Documented by: Miscellaneous (*Velphoro*Order Awaiting Action) 1 ea N/A QS [facility] Stop: 08/21/21 00:00 Last Admin: 07/31/21 08:21 Dose: Not Given Documented by: Miscellaneous (Carbohydrates For Hypoglycemia ) 15 - 30 gm PO UD PRN PRN Reason: Hypoglycemia Treatment Stop: 08/21/21 14:44 Ondansetron HCl (Ondansetron Inj 2 Mg/Ml 2 Ml Vial) 4 mg IV Q6H PRN PRN Reason: Nausea And Vomiting Stop: 08/24/21 14:10 Last Admin: 07/31/21 07:43 Dose: 4 mg Documented by: Sodium Polystyrene Sulfonate (Sodium Polystyrene Sulfonate 15g/60ml Susp) 15 gm PO SuTuThSa [facility] Stop: 08/21/21 08:59 Last Admin: 07/28/21 08:14 Dose: 15 gm Documented by: Vitamin B Complex (Vitamin B Complex Tab) [facility] Stop: 08/21/21 08:59 Last Admin: 07/31/21 08:20 Dose: 1 tab Documented by: Vitamin B Complex/Folic Acid (Nephrocaps) 1 cap [facility] Stop: 08/23/21 08:59 Last Admin: 07/31/21 08:20 Dose: 1 cap Documented by: PG Care Time/CCT Total # of Minutes Spent Total Time Spent with Patient: Total time spent is greater than 50% in coordination of care (as documented) at patient's floor/unit and/or counseling patient: Coding Level of Care Code 47142 Subseq Hosp Care Lvl 3 Diagnoses Acute respiratory failure with hypoxia J96.01 Pneumonia due to 2019-nCoV U07.1; J12.82 Sinus bradycardia R00.1 Hypotension I95.9 Acute respiratory distress syndrome (ARDS) due to 2019 novel coronavirus U07.1; J80 ESRD (end stage renal disease) on dialysis N18.6; Z99.2 Hyperparathyroidism E21.3 Hypercholesterolemia E78.00 Hypertension I10 Anemia due to chronic kidney disease N18.9; D63.1 DVT prophylaxis Z29.9 Diabetes mellitus type 2 in nonobese E11.9
[2021-07-31] MEDS: HEPARIN SOD (PORCINE) 1000 UNIT/ML IV SCH (11:52)
--- NOTE | 2021-07-31 12:53 | Palliative Care Progress Note ---
Date of Service July 31, 2021 Assessment & Plan (1) Palliative care encounter: Plan: Patient tolerated HD today and is in good spirits. I think having a zoom call will be beneficial for the patient to see his family. He said that he is tuckered out now but would like to talk to them later. I called the patients Susana and her granddaughter to provide and update and also provide them with the meeting ID # on the Ipad: [phone]. Ipad visit occurred at 1730. Confirming conversation from yesterday, Marcos and I did discuss a trach and he indicated that if he did not show improvement after being intubated short term, he would NOT want a tracheostomy. For now, continue aggressive care, including intubation in case of further respiratory decline. Palliative will follow to continue to offer support to the family. (2) Hypoxia: Plan: Being treated for COVID-19 PNA. Patient was unvax. Currently on Hi-Flow 90% FiO2 and 60L. SpO2 ranges 88-95% during my encounter. (3) ESRD (end stage renal disease) on dialysis: Plan: Patient received a kidney transplant in 2007 and rejection in 2015 due to medication non-compliance. Pt tolerated HD today with 2.5 L removed. No ACLS meds required today with treatment. Patient creatinine today 9.22 Admission and Anticipated Discharge Date Admission Date: July 23, 2021 Subjective Patient having a better day today. He is still mildy anxious. he was able to tolerate hemodialysis today, they took off 2.5 liters and no ACLS meds were required. Per nursing, they were going to attempt to wean down his FiO2 on the Hi-flow. See A/P for additional information. Review of Systems Review of Systems: [place] System Assessment Scale: Pain 0/3 SOB: 3/3 Tiredness: 1/3 Nausea: 0/3 Palliative Performance Scale: 30% Physical Exam Constitutional: + acute distress, + ill appearing, cooperative and + in distress ENMT: Mouth: + dry oral mucous membranes Respiratory: + labored breathing, + cough and + tachypneic Auscultation: + rhonchi Cardiovascular: Rate/Rhythm: regular rate and regular rhythm Heart Sounds: normal S1 and normal S2 Extremities: normal capillary refill and + edema Gastrointestinal (Abdomen): Inspection/Auscultation: abdomen normal to inspection Skin: + pallor Psychiatric: Orientation: alert and oriented x 3 Insight: good insight Judgement: good judgement Results & Data ([facility]) Vital Signs (Past 12 Hours) Vital Signs Temp Pulse Pulse Pulse Resp BP BP 07/31/21 11:40 82 107/51 L 07/31/21 11:31 18 07/31/21 11:20 79 98/57 L 07/31/21 11:00 82 103/61 07/31/21 10:40 78 115/70 07/31/21 10:20 72 131/72 07/31/21 10:00 70 129/77 07/31/21 09:40 70 147/82 H 07/31/21 09:20 65 151/83 H 07/31/21 09:04 67 121/63 07/31/21 08:53 36.1 C L 72 07/31/21 07:37 77 18 07/31/21 06:16 71 26 H 07/31/21 06:00 73 27 H 07/31/21 05:46 36.5 C 07/31/21 05:45 72 26 H 07/31/21 05:30 60 24 160/77 H 07/31/21 05:15 67 26 H 07/31/21 05:00 65 29 H 143/113 H 07/31/21 04:45 73 24 07/31/21 04:30 64 23 167/87 H 07/31/21 04:15 65 25 H 07/31/21 04:00 65 19 07/31/21 03:45 64 16 07/31/21 03:37 36.5 C 07/31/21 03:30 56 L 25 H 07/31/21 03:21 55 L 25 H 07/31/21 03:15 54 L 26 H 07/31/21 03:00 55 L 27 H 143/74 H 07/31/21 02:45 59 L 26 H 07/31/21 02:30 57 L 25 H 138/73 07/31/21 02:15 55 L 25 H 07/31/21 02:00 56 L 24 138/78 07/31/21 01:45 64 28 H 07/31/21 01:30 70 20 159/82 H 159/82 H 07/31/21 01:15 63 27 H 07/31/21 01:00 63 24 163/88 H Pulse Ox 10/26/21 11:40 07/31/21 11:31 93 07/31/21 11:20 07/31/21 11:00 07/31/21 10:40 07/31/21 10:20 07/31/21 10:00 07/31/21 09:40 07/31/21 09:20 07/31/21 09:04 07/31/21 08:53 07/31/21 07:37 93 07/31/21 06:16 93 07/31/21 06:00 85 L 07/31/21 05:46 07/31/21 05:45 93 07/31/21 05:30 92 07/31/21 05:15 94 07/31/21 05:00 93 07/31/21 04:45 92 07/31/21 04:30 93 07/31/21 04:15 95 07/31/21 04:00 93 07/31/21 03:45 92 07/31/21 03:37 07/31/21 03:30 96 07/31/21 03:21 94 07/31/21 03:15 95 07/31/21 03:00 96 07/31/21 02:45 96 07/31/21 02:30 96 07/31/21 02:15 96 07/31/21 02:00 96 07/31/21 01:45 94 07/31/21 01:30 96 07/31/21 01:15 92 07/31/21 01:00 95 PG Care Time/CCT Total # of Minutes Spent Total Time Spent with Patient: Total time spent is greater than 50% in coordination of care (as documented) at patient's floor/unit and/or counseling patient: 35 minutes with > 50% of that time spent assessing the patient, discussing overall goals of care with family and communicating with IDT. Coding Level of Care Code 61963 Subseq Hosp Care Lvl 3 Diagnoses Palliative care encounter Z51.5 Hypoxia R09.02 ESRD (end stage renal disease) on dialysis N18.6; Z99.2 Time Spent (min) 35
[2021-07-31] MEDS: PANTOprazole 40 MG in SYRINGE 0 ML IV SCH (12:55)
--- NOTE | 2021-07-31 15:39 | Pulmonology Progress Note ---
Date of Service July 31, 2021 Assessment & Plan (1) Pneumonia due to 2019-nCoV: (2) ARDS (adult respiratory distress syndrome): (3) ESRD (end stage renal disease) on dialysis: Plan: 55-year-old male with a history of end-stage renal disease admitted to the hospital due to COVID-19 viral pneumonia and ARDS. Neurologic: No issues with mentation at present. Pulmonary: Requiring high amounts of supplemental oxygen via high flow nasal cannula. He essentially has ARDS. He is agreeable to intubation and mechanical ventilation if necessary. Oxygenation improved postdialysis. Likely component of hypervolemia. Continue to wean supplemental oxygen to maintain saturations 92 to 94%. Cardiovascular: No further episodes of bradycardia. Normotensive. Gastrointestinal: Okay to escalate diet. Renal: Tolerated hemodialysis well today. Infectious disease: Continue dexamethasone 10 mg daily and decrease the 6 mg daily in the next 1 to 2 days. Blood cultures from 07/21 -. Consider de-escalating antibiotics. Hematologic: No significant concerns. Endocrine: Continue to monitor blood sugars. Lines and tubes: AV fistula left arm VTE prophylaxis: Heparin 5000 units 3 times daily CODE STATUS: Full code Palliative care consultation appreciated. Stable for downgrade from ICU status. Pulmonary will sign off. Please call with questions. Thank you for the consult. Admission and Anticipated Discharge Date Admission Date: July 23, 2021 Subjective Patient seen and examined. He is sitting up in his bed. Denies any significant chest pain. He does have some shortness of breath at rest. Completed a session of dialysis today with significant improvement of his oxygen saturations. Review of Systems Review of Systems: All systems reviewed & are unremarkable except as noted in HPI & below Physical Exam Physical Exam: Constitutional: Frail appearing male in no significant distress Eyes: Pupils are equal round and reactive to light. Conjunctivae are normal. Anicteric sclera. Ears nose, mouth and throat: No obvious deformities. Thick neck. Neck: Trachea is midline. Visual inspection is normal. Respiratory: Coarse breath sounds. Cardiovascular: Regular rate and rhythm. No murmurs. Trace edema. Gastrointestinal: Normal bowel sounds, soft, nontender and nondistended. Musculoskeletal: No cyanosis. Patient is able to move all extremities. Skin: No rashes, warm dry and intact. Neurologic: No obvious focal neurological deficits seen. Psychiatric: Alert and oriented x3 with a euthymic affect. Results & Data Results & Data ([facility]) Vital Signs (Past 12 Hours) Vital Signs Temp Pulse Pulse Pulse Resp BP BP 07/31/21 14:20 19 07/31/21 14:15 73 23 07/31/21 14:00 76 30 H 07/31/21 13:45 79 28 H 07/31/21 13:30 67 24 137/84 07/31/21 13:15 69 28 H 07/31/21 13:00 75 33 H 07/31/21 12:45 73 26 H 07/31/21 12:30 98.4 F 80 80 30 H 160/67 H 07/31/21 12:15 79 28 H 07/31/21 11:40 82 107/51 L 07/31/21 11:31 18 07/31/21 11:20 79 98/57 L 07/31/21 11:00 82 103/61 07/31/21 10:40 78 115/70 07/31/21 10:20 72 131/72 07/31/21 10:00 70 129/77 07/31/21 09:40 70 147/82 H 07/31/21 09:20 65 151/83 H 07/31/21 09:04 67 121/63 07/31/21 08:53 97.0 F L 72 07/31/21 07:37 77 18 07/31/21 06:16 71 26 H 07/31/21 06:00 73 27 H 07/31/21 05:46 97.7 F 07/31/21 05:45 72 26 H 07/31/21 05:30 60 24 160/77 H 07/31/21 05:15 67 26 H 07/31/21 05:00 65 29 H 143/113 H 07/31/21 04:45 73 24 07/31/21 04:30 64 23 167/87 H 07/31/21 04:15 65 25 H 07/31/21 04:00 65 19 07/31/21 03:45 64 16 07/31/21 03:37 97.7 F Pulse Ox 07/31/21 14:20 94 07/31/21 14:15 90 07/31/21 14:00 91 07/31/21 13:45 94 07/31/21 13:30 100 07/31/21 13:15 100 07/31/21 13:00 88 L 07/31/21 12:45 100 07/31/21 12:30 100 07/31/21 12:15 97 07/31/21 11:40 07/31/21 11:31 93 07/31/21 11:20 07/31/21 11:00 07/31/21 10:40 07/31/21 10:20 07/31/21 10:00 07/31/21 09:40 07/31/21 09:20 07/31/21 09:04 07/31/21 08:53 07/31/21 07:37 93 07/31/21 06:16 93 07/31/21 06:00 85 L 07/31/21 05:46 07/31/21 05:45 93 07/31/21 05:30 92 07/31/21 05:15 94 07/31/21 05:00 93 07/31/21 04:45 92 07/31/21 04:30 93 07/31/21 04:15 95 07/31/21 04:00 93 07/31/21 03:45 92 07/31/21 03:37 Multifocal airspace opacities seen on chest x-ray today. PG Care Time/CCT Total # of Minutes Spent Total Time Spent with Patient: Total time spent is greater than 50% in coordination of care (as documented) at patient's floor/unit and/or counseling patient: Coding Level of Care Code 54619 Subseq Hosp Care Lvl 2 Diagnoses Pneumonia due to 2019-nCoV U07.1; J12.82 ARDS (adult respiratory distress syndrome) J80 ESRD (end stage renal disease) on dialysis N18.6; Z99.2
[2021-07-31] MEDS: METOPROLOL TARTRATE 50 MG TAB PO SCH (17:51)
[2021-07-31] MEDS: hydrALAZINE HCL 20 MG/ML VIAL IV PRN (22:25)
[2021-08-01] MEDS: HEPARIN SOD 5,000 UNIT/0.5 ML VIAL SQ SCH ×3 (05:47→20:59)
[2021-08-01 06:14] LABS: Basophils # (auto) 0.01 K/uL (0-0.2); Basophils % (auto) 0.1 %; Eosinophils # (auto) 0.08 K/uL (0-0.5); Eosinophils % (auto) 0.9 %; Hematocrit (blood only) 34.9 % (42-52); Hemoglobin 11.4 g/dL (14.0-18.0); Immature Granulocytes # (auto) 0.07 K/uL (0.00-0.02); Immature Granulocytes % (auto) 0.8 %; Lymphocytes # (auto) 0.58 K/uL (1.2-3.4); Lymphocytes % (auto) 6.5 %; Mean Corpuscular Hemoglobin 28.4 pg (25-34); Mean Corpuscular Hgb Conc 32.7 g/dL (32-36); Mean Corpuscular Volume 86.8 fL (80-100); Mean Platelet Volume 9.2 fL (7.4-10.4); Monocytes # (auto) 0.36 K/uL (0.11-0.59); Neutrophils % (auto) 87.7 %; Platelet Count 159 K/uL (130-400); RDW Coefficient of Variation 16.1 % (11.5-14.5); RDW Standard Deviation 51.8 fL (36.4-46.3); Red Blood Count 4.02 M/uL (4.7-6.1)
[2021-08-01 07:33] LABS: BUN Creatinine Ratio 10.7 (10-20); Blood Urea Nitrogen 89 mg/dl (7-18); Calcium 10.8 mg/dl (8.5-10.1); Carbon Dioxide 23 mmol/L (21-32); Chloride 99 mmol/L (98-107); Est GFR (African American) 7.5 ml/min; Est GFR (Non-African American) 6.4 ml/min; Glucose 110 mg/dl (70-99); Sodium 137 mmol/L (136-145)
[2021-08-01] MEDS: hydrALAZINE HCL 20 MG/ML VIAL IV PRN (07:54)
[2021-08-01] MEDS: ONDANSETRON INJ 2 MG/ML 2 ML VIAL IV PRN (07:54)
[2021-08-01 07:57] LABS: Phosphorus 9.2 mg/dl (2.5-4.9)
[2021-08-01] MEDS: guaiFENesin 600 MG TABCR PO SCH ×2 (08:08→20:58)
[2021-08-01] MEDS: NEPHROCAPS PO SCH (08:08)
[2021-08-01] MEDS: VITAMIN B COMPLEX TAB PO SCH (08:08)
[2021-08-01] MEDS: ATORVASTATIN 40 MG TAB PO SCH (08:08)
[2021-08-01] MEDS: CALCIUM CARBONATE 500 MG CHEWABLE TAB PO SCH ×3 (08:09→17:30)
[2021-08-01] MEDS: dexAMETHasone 10 MG in SYRINGE 0 ML IV SCH (08:09)
[2021-08-01] MEDS: amLODIPine BESYLATE 5 MG TAB PO SCH (08:10)
[2021-08-01] MEDS: INSULIN ASPART 100 UNITS/ML 3 ML PEN SC SCH ×4 (08:21→20:54)
[2021-08-01] MEDS ORDERED: HEPARIN SOD (PORCINE) 1000 UNIT/ML IV SCH (09:11)
--- NOTE | 2021-08-01 09:14 | Nephrology Progress Note ---
Date of Service August 01, 2021 Assessment & Plan (1) ESRD (end stage renal disease) on dialysis: Plan: HD orders entered into EHR and reviewed with nurse. UF goal ~2 L as tolerated. 2K bath. Update metabolic profile tomorrow AM. Add Renvela 1 tab QAC for hyperphosphatemia. Medications appropriately dosed for kidney dysfunction and dialysis. AVF functioning well. (2) History of kidney transplant: Plan: Status 7 currently due to hospitalization and COVID. (3) Pneumonia due to COVID-19 virus: Plan: Remains on Decadron. Superimposed ARDS. Pulmonary following. Continues to require very high amounts of supplemental O2. Admission and Anticipated Discharge Date Admission Date: July 23, 2021 Subjective HD completed yesterday without complications, UF 2.6 L. Marcos remains notably dyspneic. He reports trouble sleeping. No fevers or chills. Feeling tired this morning. No chest pain. Review of Systems Review of Systems: All systems reviewed & are unremarkable except as noted in HPI & below Physical Exam Constitutional: + acute distress and + ill appearing Eyes: no scleral abnormality and no corneal abnormality Neck: normal visual inspection and trachea midline Respiratory: + labored breathing Auscultation: + rhonchi Cardiovascular: Rate/Rhythm: regular rate and regular rhythm Heart Sounds: normal S1, normal S2 and + murmur Extremities: + AV fistula; no edema Musculoskeletal: Extremities: no cyanosis and no clubbing Skin: normal turgor; no lesions Neurologic: Motor/Sensory: no tremor and no asterixis Psychiatric: Orientation: alert and oriented x 3 Results & Data ([facility]) Vital Signs (Past 12 Hours) Vital Signs Temp Pulse Pulse Resp BP Pulse Ox 08/01/21 07:59 36.6 C 90 30 H 196/94 H 94 08/01/21 07:05 93 H 30 H 94 08/01/21 04:12 74 26 H 93 08/01/21 03:20 36.5 C 73 22 174/96 H 95 08/01/21 00:02 71 144/72 H 93 07/31/21 23:05 78 22 91 07/31/21 22:20 73 26 H 187/92 H 92 Laboratory Results Laboratory Results - last 24 hr 07/31/21 07/31/21 07/31/21 11:27 16:47 20:18 WBC RBC Hgb Hct MCV MCH MCHC RDW Std Deviation RDW Coeff of Lisseth Plt Count MPV Immature Gran % (Auto) Neut % (Auto) Lymph % (Auto) [place] % (Auto) Eos % (Auto) Baso % (Auto) Neut # (Auto) Lymph # (Auto) [place] # (Auto) Eos # (Auto) Baso # (Auto) Immature Gran # (Auto) Sodium Potassium Chloride Carbon Dioxide Anion Gap BUN Creatinine Est Cr Clr Drug Dosing Est GFR ( Amer) Est GFR (Non-Af Amer) BUN/Creatinine Ratio Glucose POC Glucose 109 H 157 H 145 H Calcium Phosphorus Magnesium 08/01/21 08/01/21 08/01/21 05:44 05:44 07:34 WBC 8.90 RBC 4.02 L Hgb 11.4 L Hct 34.9 L MCV 86.8 MCH 28.4 MCHC 32.7 RDW Std Deviation 51.8 H RDW Coeff of Lisseth 16.1 H Plt Count 159 MPV 9.2 Immature Gran % (Auto) 0.8 Neut % (Auto) 87.7 Lymph % (Auto) 6.5 [place] % (Auto) 4.0 Eos % (Auto) 0.9 Baso % (Auto) 0.1 Neut # (Auto) 7.80 H Lymph # (Auto) 0.58 L [place] # (Auto) 0.36 Eos # (Auto) 0.08 Baso # (Auto) 0.01 Immature Gran # (Auto) 0.07 H Sodium 137 Potassium 5.0 Chloride 99 Carbon Dioxide 23 Anion Gap 15.0 H BUN 89 H Creatinine 8.29 H* D Est Cr Clr Drug Dosing Not Reportable Est GFR ( Amer) 7.5 Est GFR (Non-Af Amer) 6.4 BUN/Creatinine Ratio 10.7 Glucose 110 H POC Glucose 108 H Calcium 10.8 H Phosphorus 9.2 H Magnesium 3.0 H PG Care Time/CCT Total # of Minutes Spent Total Time Spent with Patient: Total time spent is greater than 50% in coordination of care (as documented) at patient's floor/unit and/or counseling patient: Coding Level of Care Code 00960 Subseq Hosp Care Lvl 3 Diagnoses ESRD (end stage renal disease) on dialysis N18.6; Z99.2 History of kidney transplant Z94.0 Pneumonia due to COVID-19 virus U07.1; J12.82
--- NOTE | 2021-08-01 09:37 | Hospitalist Progress Note ---
Date of Service August 01, 2021 Assessment & Plan (1) Acute respiratory failure with hypoxia: Plan: due to severe COVID-19 pneumonia, developed into ARDS. Pulmonary edema likely contributing, difficult to remove fluid with HD initially improved oxygen requirements after 3 HD sessions last week 07/30, having some distress, need to remove fluid but HR dropped and BP dropped HR improved with atropine, no further doses needed still got 2L removed oxygen requirements improved to 45L and 75% today, however he desaturates quickly with dry heaves and anxiety attacks will give Ativan 0.25mg IV q8 PRN for severe anxiety as it really impairs his breathing Elected to cover for bacterial superinfection given his significant clinical worsening on Friday along with elevated inflammatory markers. completed 7 days of cefepime/doxy Deferred on MRSA coverage - MRSA swab neg. Remains on Dexamethasone 10mg/day to cover for development of ARDS. See below. (2) Pneumonia due to 2019-nCoV: Plan: had been improving then much worse on 07/25/21. [facility] day [facility]11 dexamethasone today - dose was increased from 6 to 10mg on 07/25/21 to cover for possibility of developing ARDS. not a candidate for Remdesivir treatment crp and procal both high - abx initiated on 07/25/21 - finished 7 days of Cefepime/Doxy flutter valve, IS, etc supportive care. unfortunately cannot prone - he attempted w/o succcess. not a candidate for Toci or Baricitinib CRP down to 11 on 07/30 breathing is okay when he is sleeping, resting, gets really bad with anxiety attacks guarded prognosis, needs HD daily for time being to keep lungs dry with ARDS (3) Sinus bradycardia: Plan: dropped to 40's on morning of 07/30 EKG showed sinus rhythm, no block responded to Atropine 0.5mg IV push, no further doses needed give Atropine again PRN metoprolol was on hold, HR now in 90's, will resume at 25mg BID back to PCU status on 07/31 (4) Hypotension: Plan: occurred on 07/30, now resolved, actually hypertensive (5) Anxiety: Plan: driving work of breathing and desaturation episodes triggered by dry heaves, then he feels like he cannot breathe, RR goes up to high 40's will try Ativan 0.25mg IV q8 PRN, give low dose with HD patient he says he needs something when the anxiety gets really bad (6) Acute respiratory distress syndrome (ARDS) due to 2019 novel coronavirus: Plan: see above dexamethasone, try to remove fluid with HD daily Ativan for anxiety unfortunately he cannot lay prone (7) Nausea: Plan: dry heaves, triggers desaturation episodes not much relief with Zofran will try a dose of Reglan, if it works will give it q8 scheduled for 1-2 days (8) ESRD (end stage renal disease) on dialysis: [place] [facility] [place] typical HD schedule of // plan for daily HD for now to try to remove volume, keep lungs dry removed 4.7 liters the past two days Cr is 8, K is 5.0, mag and phos high (9) Hyperparathyroidism: Plan: Secondary to ESRD Continue VELPHORO (10) Hypercholesterolemia: Plan: Continue atorvastatin LFTs nl this admission (11) Hypertension: Plan: resumed Norvasc 5mg daily resume metoprolol 25mg BID Hydralazine PRN, might consider making it scheduled if BP remains high (12) Anemia due to chronic kidney disease: Plan: stable (13) DVT prophylaxis: Plan: heparin TID recent CTA chest neg for PE (14) Diabetes mellitus type 2 in nonobese: Plan: controlled at this time novolog SSI lantus 8 units daily Plan: HD today, control nausea with Reglan/Zofran, try low dose Ativan for anxiety/panic attacks try to wean oxygen as tolerated, anxiety is making that difficult Admission and Anticipated Discharge Date Admission Date: July 23, 2021 Subjective patient still having nausea, dry heaves this morning getting very anxious, RR goes up to 40's, shallow breathing, says "I can't breathe" BP is elevated, 190's systolic, he is scheduled to get HD today reviewed labs, Cr is 9, K is 5.0, Mag and Phos elevated when he is calm and sleeping he is stable on 45L and 75%, need to turn up FiO2 when he is anxious he is very frustrated, just wants to feel better he says he is willing to try Ativan when he gets really anxious, will try low dose of 0.25mg IV, spoke with RN about the plan Review of Systems Review of Systems: All systems reviewed & are unremarkable except as noted in Subjective Constitutional: + fatigue and + weakness; no fever Respiratory: + cough, + dyspnea and + dyspnea on exertion; no sputum production Cardiovascular: no chest pain Gastrointestinal: + nausea; no abdominal pain, no constipation and no diarrhea/loose stools Psychiatric: + anxiety Physical Exam Physical Exam: General: well developed, well nourished, obese male, comfortable, no distress Neck: supple, trachea midline, normal thyroid Lungs: clear to auscultation bilaterally, tachypneic, belly breathing, mild distress when he feels short of breath Heart: regular rate, S1 and S2, no murmur, peripheral pulses normal, capillary refill normal, no edema, LUE fistula with thrill and bruit Abdomen: soft, NT, distended, + BS, no hepatomegaly, normal to percussion Extremities: normal in appearance, no cyanosis, no petechiae, + generalized weakness Neuro: awake, cooperative, moves all extremities, no focal motor deficits, CN II-XII intact, sensation in extremities intact, normal speech Skin: warm, dry, no rash, normal turgor Psych: Awake, alert oriented x 3, very anxious Results & Data Results & Data ([facility]) Vital Signs (Past 12 Hours) Vital Signs Temp Pulse Pulse Resp BP Pulse Ox 08/01/21 07:59 36.6 C 90 30 H 196/94 H 94 08/01/21 07:05 93 H 30 H 94 08/01/21 04:12 74 26 H 93 08/01/21 03:20 36.5 C 73 22 174/96 H 95 08/01/21 00:02 71 144/72 H 93 07/31/21 23:05 78 22 91 07/31/21 22:20 73 26 H 187/92 H 92 Laboratory Results Laboratory Results - last 24 hr 07/31/21 07/31/21 07/31/21 11:27 16:47 20:18 WBC RBC Hgb Hct MCV MCH MCHC RDW Std Deviation RDW Coeff of Lisseth Plt Count MPV Immature Gran % (Auto) Neut % (Auto) Lymph % (Auto) [place] % (Auto) Eos % (Auto) Baso % (Auto) Neut # (Auto) Lymph # (Auto) [place] # (Auto) Eos # (Auto) Baso # (Auto) Immature Gran # (Auto) Sodium Potassium Chloride Carbon Dioxide Anion Gap BUN Creatinine Est Cr Clr Drug Dosing Est GFR ( Amer) Est GFR (Non-Af Amer) BUN/Creatinine Ratio Glucose POC Glucose 109 H 157 H 145 H Calcium Phosphorus Magnesium 08/01/21 08/01/21 08/01/21 05:44 05:44 07:34 WBC 8.90 RBC 4.02 L Hgb 11.4 L Hct 34.9 L MCV 86.8 MCH 28.4 MCHC 32.7 RDW Std Deviation 51.8 H RDW Coeff of Lisseth 16.1 H Plt Count 159 MPV 9.2 Immature Gran % (Auto) 0.8 Neut % (Auto) 87.7 Lymph % (Auto) 6.5 [place] % (Auto) 4.0 Eos % (Auto) 0.9 Baso % (Auto) 0.1 Neut # (Auto) 7.80 H Lymph # (Auto) 0.58 L [place] # (Auto) 0.36 Eos # (Auto) 0.08 Baso # (Auto) 0.01 Immature Gran # (Auto) 0.07 H Sodium 137 Potassium 5.0 Chloride 99 Carbon Dioxide 23 Anion Gap 15.0 H BUN 89 H Creatinine 8.29 H* D Est Cr Clr Drug Dosing Not Reportable Est GFR ( Amer) 7.5 Est GFR (Non-Af Amer) 6.4 BUN/Creatinine Ratio 10.7 Glucose 110 H POC Glucose 108 H Calcium 10.8 H Phosphorus 9.2 H Magnesium 3.0 H Medications Administered Current Inpatient Medications Amlodipine Besylate (Amlodipine Besylate 5 Mg Tab) [address] [facility] Stop: 08/21/21 08:59 Last Admin: 08/01/21 08:10 Dose: 5 mg Documented by: Atorvastatin Calcium (Atorvastatin 40 Mg Tab) [facility] [place] Stop: 08/21/21 08:59 Last Admin: 08/01/21 08:08 Dose: 40 mg Documented by: Atropine Sulfate (Atropine Sulfate 0.1 Mg/Ml 10ml Syr) 0.5 mg IV .for use during dialysis PRN PRN Reason: HR < 60 with symptoms Stop: 08/30/21 08:11 Benzonatate (Benzonatate 100 Mg Capsule) 200 mg PO Q8H PRN PRN Reason: Cough Stop: 08/24/21 07:01 Last Admin: 07/29/21 19:39 Dose: 200 mg Documented by: Calcium Carbonate (Calcium Carbonate 500 Mg Chewable Tab) 500 mg PO TIDM RUSSELL Stop: 08/22/21 16:59 Last Admin: 08/01/21 08:09 Dose: 500 mg Documented by: Dextromethorphan Polymer Complex (Dextromethorphan Polymr Complx 30 Mg/5 Ml Udp) 30 mg PO Q6H PRN PRN Reason: Cough Stop: 08/20/21 21:52 Last Admin: 07/30/21 15:53 Dose: 30 mg Documented by: Dextrose (Dextrose 50% 50 Ml Syringe) 25 - 50 ml IV UD PRN; Protocol PRN Reason: Hypoglycemia Protocol Stop: 08/21/21 14:44 Glucagon (Glucagon For Inj 1 Mg Vial) 1 mg IM UD PRN; Protocol PRN Reason: Hypoglycemia Protocol Stop: 08/21/21 14:44 Glucose (Glucose 40% Gel 15 Gm Tube) 15 - 30 gm PO UD PRN; Protocol PRN Reason: Hypoglycemia Protocol Stop: 08/21/21 14:44 Glucose (Glucose 10 Tabs/Tube) 4 - 8 tabs PO UD PRN; Protocol PRN Reason: Hypoglycemia Protocol Stop: 08/21/21 14:44 Guaifenesin (Guaifenesin 600 Mg Tabcr) 1,200 mg PO Q12 RUSSELL Stop: 08/20/21 21:54 Last Admin: 08/01/21 08:08 Dose: 1,200 mg Documented by: Heparin Sodium (Porcine) (Heparin Sod 5,000 Unit/0.5 Ml Vial) 5,000 units SQ Q8 RUSSELL Stop: 08/21/21 21:59 Last Admin: 08/01/21 05:47 Dose: 5,000 units Documented by: Heparin Sodium (Porcine) (Heparin Sod (Porcine) 1000 Unit/Ml) 2,000 units IV TODAY@0911 [facility] Stop: 08/01/21 16:00 Hydralazine HCl (Hydralazine Hcl 20 Mg/Ml Vial) 10 mg IV Q6 PRN PRN Reason: Blood Pressure - High Stop: 08/29/21 14:06 Last Admin: 08/01/21 07:54 Dose: 10 mg Documented by: Dexamethasone 10 mg/ Syringe 2.5 mls @ 1 mls/min IV QAM RUSSELL Stop: 08/24/21 08:59 Last Admin: 08/01/21 08:09 Dose: 1 mls/min Documented by: Pantoprazole Sodium 40 mg/ (Syringe) 10 mls @ 5 mls/min IV DAILY@1100 [facility] Stop: 08/30/21 10:59 Last Admin: 07/31/21 12:55 Dose: 5 mls/min Documented by: Insulin Aspart (Insulin Aspart 100 Units/Ml 3 Ml Pen) 0 units SC ACHS [facility] Stop: 08/21/21 16:29 Last Admin: 08/01/21 08:21 Dose: Not Given Documented by: Insulin Glargine (Insulin Glargine Solostar 100 Units/Ml 3 Ml Pen) 8 units SC QAM [facility] Stop: 08/26/21 09:44 Last Admin: 07/31/21 09:21 Dose: 8 units Documented by: Metoprolol Tartrate (Metoprolol Tartrate 25 Mg Tab) 25 mg PO BID [facility] Stop: 08/31/21 20:59 Miscellaneous (*Velphoro*Order Awaiting Action) 1 ea N/A QS [facility] Stop: 08/21/21 00:00 Last Admin: 08/01/21 08:21 Dose: Not Given Documented by: Miscellaneous (Carbohydrates For Hypoglycemia ) 15 - 30 gm PO UD PRN PRN Reason: Hypoglycemia Treatment Stop: 08/21/21 14:44 Ondansetron HCl (Ondansetron Inj 2 Mg/Ml 2 Ml Vial) 4 mg IV Q6H PRN PRN Reason: Nausea And Vomiting Stop: 08/24/21 14:10 Last Admin: 08/01/21 07:54 Dose: 4 mg Documented by: Sevelamer HCl (Sevelamer Hcl 800 Mg Tablet) 800 mg PO TIDM [facility] Stop: 08/31/21 11:59 Sodium Polystyrene Sulfonate (Sodium Polystyrene Sulfonate 15g/60ml Susp) 15 gm PO SuTuThSa [facility] Stop: 08/21/21 08:59 Last Admin: 07/28/21 08:14 Dose: 15 gm Documented by: Vitamin B Complex (Vitamin B Complex Tab) 1 tab PO QAM [facility] Stop: 08/21/21 08:59 Last Admin: 08/01/21 08:08 Dose: 1 tab Documented by: Vitamin B Complex/Folic Acid (Nephrocaps) 1 cap PO QAM [facility] Stop: 08/23/21 08:59 Last Admin: 08/01/21 08:08 Dose: 1 cap Documented by: PG Care Time/CCT Total # of Minutes Spent Total Time Spent with Patient: Total time spent is greater than 50% in coordination of care (as documented) at patient's floor/unit and/or counseling patient: Coding Level of Care Code 56153 Subseq Hosp Care Lvl 3 Diagnoses Acute respiratory failure with hypoxia J96.01 Pneumonia due to 2019-nCoV U07.1; J12.82 Sinus bradycardia R00.1 Hypotension I95.9 Acute respiratory distress syndrome (ARDS) due to 2019 novel coronavirus U07.1; J80 ESRD (end stage renal disease) on dialysis N18.6; Z99.2 Hyperparathyroidism E21.3 Hypercholesterolemia E78.00 Hypertension I10 Anemia due to chronic kidney disease N18.9; D63.1 DVT prophylaxis Z29.9 Diabetes mellitus type 2 in nonobese E11.9 Nausea R11.0 Anxiety F41.9
[2021-08-01] MEDS ORDERED: METOCLOPRAMIDE HCL INJ 5 MG/ML 2 ML VIAL IV STA (09:44)
[2021-08-01] MEDS: INSULIN GLARGINE SOLOSTAR 100 UNITS/ML 3 ML PEN SC SCH (10:01)
[2021-08-01] MEDS: LORazepam 0.25 MG/0.5 ML VIAL IV PRN (13:06)
[2021-08-01] MEDS: PANTOprazole 40 MG in SYRINGE 0 ML IV SCH (13:06)
[2021-08-01] MEDS: SEVELAMER HCL 800 MG TABLET PO SCH ×2 (13:07→17:31)
[2021-08-01] MEDS: METOPROLOL TARTRATE 25 MG TAB PO SCH (20:59)
[2021-08-02] MEDS: HEPARIN SOD 5,000 UNIT/0.5 ML VIAL SQ SCH ×3 (06:05→21:01)
[2021-08-02 08:24] LABS: Basophils # (auto) 0.01 K/uL (0-0.2); Basophils % (auto) 0.1 %; Eosinophils % (auto) 1.9 %; Hematocrit (blood only) 35.5 % (42-52); Hemoglobin 11.6 g/dL (14.0-18.0); Immature Granulocytes # (auto) 0.11 K/uL (0.00-0.02); Lymphocytes # (auto) 0.67 K/uL (1.2-3.4); Lymphocytes % (auto) 6.4 %; Mean Corpuscular Hemoglobin 28.5 pg (25-34); Mean Corpuscular Hgb Conc 32.7 g/dL (32-36); Mean Corpuscular Volume 87.2 fL (80-100); Mean Platelet Volume 9.4 fL (7.4-10.4); Monocytes # (auto) 0.37 K/uL (0.11-0.59); Monocytes % (auto) 3.5 %; Neutrophils # (auto) 9.13 K/uL (1.4-6.5); Neutrophils % (auto) 87.1 %; Platelet Count 187 K/uL (130-400); RDW Coefficient of Variation 16.4 % (11.5-14.5); RDW Standard Deviation 52.3 fL (36.4-46.3); Red Blood Count 4.07 M/uL (4.7-6.1); White Blood Count 10.49 K/uL (4.8-10.8)
[2021-08-02] MEDS: INSULIN GLARGINE SOLOSTAR 100 UNITS/ML 3 ML PEN SC SCH (08:25)
[2021-08-02] MEDS: INSULIN ASPART 100 UNITS/ML 3 ML PEN SC SCH ×4 (08:25→20:49)
[2021-08-02] MEDS: ATORVASTATIN 40 MG TAB PO SCH (08:39)
[2021-08-02] MEDS: VITAMIN B COMPLEX TAB PO SCH (08:39)
[2021-08-02] MEDS: NEPHROCAPS PO SCH (08:39)
[2021-08-02] MEDS: guaiFENesin 600 MG TABCR PO SCH ×2 (08:39→20:59)
[2021-08-02] MEDS: METOPROLOL TARTRATE 25 MG TAB PO SCH ×2 (08:39→20:59)
[2021-08-02] MEDS: amLODIPine BESYLATE 5 MG TAB PO SCH (08:40)
[2021-08-02] MEDS: SEVELAMER HCL 800 MG TABLET PO SCH ×3 (08:40→17:40)
[2021-08-02] MEDS: CALCIUM CARBONATE 500 MG CHEWABLE TAB PO SCH ×3 (08:40→17:38)
[2021-08-02] MEDS: dexAMETHasone 10 MG in SYRINGE 0 ML IV SCH (08:40)
[2021-08-02] MEDS: DEXTROMETHORPHAN POLYMR COMPLX 30 MG/5 ML UDP PO PRN (08:50)
[2021-08-02] MEDS: BENZONATATE 100 MG CAPSULE PO PRN ×2 (08:52→22:23)
--- NOTE | 2021-08-02 09:52 | Nephrology Progress Note ---
Date of Service August 02, 2021 Assessment & Plan (1) ESRD (end stage renal disease) on dialysis: Plan: Will plan on holding HD today. May re-evaluate potential role for additional UF this afternoon. Update metabolic profile tomorrow AM. Renvela 1 tab QAC for hyperphosphatemia. Medications appropriately dosed for kidney dysfunction and dialysis. AVF functioning well. (2) History of kidney transplant: Plan: Status 7 currently due to hospitalization and COVID. (3) Pneumonia due to COVID-19 virus: Plan: Remains on Decadron. Superimposed ARDS. Pulmonary following. Continues to require very high amounts of supplemental O2. Admission and Anticipated Discharge Date Admission Date: July 23, 2021 Subjective Marcos states that he feels better this morning. He was able to get some rest. His breathing is more comfortable. No fevers or chills. Tolerated HD yesterday without complications. Net UF 2.3 L. Review of Systems Review of Systems: All systems reviewed & are unremarkable except as noted in HPI & below Physical Exam Constitutional: + ill appearing; no acute distress Eyes: no scleral abnormality and no corneal abnormality Neck: normal visual inspection and trachea midline Respiratory: + tachypneic Auscultation: + rhonchi Cardiovascular: Rate/Rhythm: regular rhythm and + tachycardic Heart Sounds: normal S1, normal S2 and + murmur Extremities: + AV fistula; no edema Musculoskeletal: Extremities: no cyanosis and no clubbing Skin: normal turgor; no lesions Neurologic: Motor/Sensory: no tremor and no asterixis Psychiatric: Orientation: alert and oriented x 3 Results & Data ([facility]) Vital Signs (Past 12 Hours) Vital Signs Temp Pulse Pulse Pulse Resp BP Pulse Ox 08/02/21 07:49 36.6 C 95 H 24 166/87 H 92 08/02/21 07:23 85 24 92 08/02/21 04:49 36.5 C 83 21 163/94 H 88 L 08/02/21 03:05 66 22 91 08/01/21 22:42 36.5 C 69 21 168/110 H 88 L 08/01/21 22:04 75 23 93 Laboratory Results Laboratory Results - last 24 hr 08/01/21 08/01/21 08/01/21 11:54 16:38 20:49 WBC RBC Hgb Hct MCV MCH MCHC RDW Std Deviation RDW Coeff of Lisseth Plt Count MPV Immature Gran % (Auto) Neut % (Auto) Lymph % (Auto) [place] % (Auto) Eos % (Auto) Baso % (Auto) Neut # (Auto) Lymph # (Auto) [place] # (Auto) Eos # (Auto) Baso # (Auto) Immature Gran # (Auto) Sodium Potassium Chloride Carbon Dioxide Anion Gap BUN Creatinine Est Cr Clr Drug Dosing Est GFR ( Amer) Est GFR (Non-Af Amer) BUN/Creatinine Ratio Glucose POC Glucose 122 H 192 H 158 H Calcium Phosphorus Magnesium 08/02/21 08/02/21 08/02/21 07:45 07:45 08:08 WBC 10.49 RBC 4.07 L Hgb 11.6 L Hct 35.5 L MCV 87.2 MCH 28.5 MCHC 32.7 RDW Std Deviation 52.3 H RDW Coeff of Lisseth 16.4 H Plt Count 187 MPV 9.4 Immature Gran % (Auto) 1.0 Neut % (Auto) 87.1 Lymph % (Auto) 6.4 [place]cock % (Auto) 3.5 Eos % (Auto) 1.9 Baso % (Auto) 0.1 Neut # (Auto) 9.13 H Lymph # (Auto) 0.67 L [place]cock # (Auto) 0.37 Eos # (Auto) 0.20 Baso # (Auto) 0.01 Immature Gran # (Auto) 0.11 H Sodium Pending Potassium Pending Chloride Pending Carbon Dioxide Pending Anion Gap Pending BUN Pending Creatinine Pending Est Cr Clr Drug Dosing Pending Est GFR ( Amer) Pending Est GFR (Non-Af Amer) Pending BUN/Creatinine Ratio Pending Glucose Pending POC Glucose 108 H Calcium Pending Phosphorus Pending Magnesium Pending PG Care Time/CCT Total # of Minutes Spent Total Time Spent with Patient: Total time spent is greater than 50% in coordination of care (as documented) at patient's floor/unit and/or counseling patient: Coding Level of Care Code 75645 Subseq Hosp Care Lvl 3 Diagnoses ESRD (end stage renal disease) on dialysis N18.6; Z99.2 History of kidney transplant Z94.0 Pneumonia due to COVID-19 virus U07.1; J12.82
[2021-08-02 09:58] LABS: BUN Creatinine Ratio 10.9 (10-20); Blood Urea Nitrogen 94 mg/dl (7-18); Calcium 10.8 mg/dl (8.5-10.1); Carbon Dioxide 24 mmol/L (21-32); Chloride 100 mmol/L (98-107); Est GFR (African American) 7.1 ml/min; Est GFR (Non-African American) 6.1 ml/min; Glucose 101 mg/dl (70-99); Magnesium 3.1 mg/dl (1.8-2.4); Phosphorus 9.3 mg/dl (2.5-4.9); Sodium 137 mmol/L (136-145)
--- NOTE | 2021-08-02 10:44 | Hospitalist Progress Note ---
Date of Service August 02, 2021 Assessment & Plan (1) Acute respiratory failure with hypoxia: Plan: due to severe COVID-19 pneumonia, developed into ARDS. Pulmonary edema likely contributing, difficult to remove fluid with HD initially improved oxygen requirements after 3 HD sessions last week today he is on 50L 70%, no HD planned today, got HD the past 3 days good response yesterday to Ativan 0.25mg IV q8 PRN, can use again if needed Elected to cover for bacterial superinfection given his significant clinical worsening on Friday along with elevated inflammatory markers. completed 7 days of cefepime/doxy Deferred on MRSA coverage - MRSA swab neg. Remains on Dexamethasone 10mg/day to cover for development of ARDS. See below. (2) Pneumonia due to 2019-nCoV: Plan: had been improving then much worse on 07/25/21. transferred to [address] [place] [address] wing/[facility] on 07/25 from [facility]. day #12 dexamethasone today - dose was increased from 6 to 10mg on 07/25/21 to cover for possibility of developing ARDS. not a candidate for Remdesivir treatment crp and procal both high - abx initiated on 07/25/21 - finished 7 days of Cefepime/Doxy flutter valve, IS, etc supportive care. unfortunately cannot prone - he attempted w/o succcess. not a candidate for Toci or Baricitinib CRP down to 11 on 07/30 breathing is okay when he is sleeping, resting, gets really bad with anxiety attacks guarded prognosis, slightly better today, hope that he continues to improve each day (3) Sinus bradycardia: Plan: dropped to 40's on morning of 07/30 EKG showed sinus rhythm, no block responded to Atropine 0.5mg IV push, no further doses needed give Atropine again PRN metoprolol was on hold for two days, resumed at 25mg BID, HR in 60-70's back to PCU status on 07/31 (4) Hypotension: Plan: occurred on 07/30, now resolved, actually hypertensive (5) ESRD (end stage renal disease) on dialysis: Plan: [facility] nephrology typical HD schedule of M/W/F got HD the past 3 days with UF of over 6L hold HD today, plan for tomorrow morning (6) Anxiety: Plan: driving work of breathing and desaturation episodes triggered by dry heaves, then he feels like he cannot breathe, RR goes up to high 40's good response to Ativan 0.25mg IV q8 PRN he says he needs something when the anxiety gets really bad (7) Acute respiratory distress syndrome (ARDS) due to 2019 novel coronavirus: Plan: see above dexamethasone, try to keep euvolemic to dry with HD Ativan for anxiety unfortunately he cannot lay prone (8) Nausea: Plan: dry heaves, triggers desaturation episodes not much relief with Zofran good response to Reglan, continue q8 scheduled for 1-2 days (9) Diabetes mellitus type 2 in nonobese: Plan: controlled at this time novolog SSI lantus 8 units daily (10) Hyperparathyroidism: Plan: Secondary to ESRD Continue VELPHORO (11) Hypercholesterolemia: Plan: Continue atorvastatin LFTs nl this admission (12) Hypertension: Plan: resumed Norvasc 5mg daily resume metoprolol 25mg BID Hydralazine PRN (13) Anemia due to chronic kidney disease: Plan: stable (14) DVT prophylaxis: Plan: heparin TID recent CTA chest neg for PE Plan: HD today, control nausea with Reglan/Zofran, try low dose Ativan for anxiety/panic attacks try to wean oxygen as tolerated, anxiety is making that difficult Admission and Anticipated Discharge Date Admission Date: July 23, 2021 Subjective patient looks and feels a lot better today, the best he has been all week he is breathing easier, coughing less he is on 50L and 70% eating better, no nausea since the Reglan yesterday, will make it scheduled for time being d/w Dr. Loomis, no HD today, give him a break, plan for session tomorrow patient is fine with that plan reviewed labs Review of Systems Review of Systems: All systems reviewed & are unremarkable except as noted in Subjective Physical Exam Physical Exam: General: well developed, well nourished, obese male, comfortable, no distress Neck: supple, trachea midline, normal thyroid Lungs: clear to auscultation bilaterally, tachypneic, belly breathing, mild distress when he feels short of breath Heart: regular rate, S1 and S2, no murmur, peripheral pulses normal, capillary refill normal, no edema, LUE fistula with thrill and bruit Abdomen: soft, NT, distended, + BS, no hepatomegaly, normal to percussion Extremities: normal in appearance, no cyanosis, no petechiae, + generalized weakness Neuro: awake, cooperative, moves all extremities, no focal motor deficits, CN II-XII intact, sensation in extremities intact, normal speech Skin: warm, dry, no rash, normal turgor Psych: Awake, alert oriented x 3, very anxious Results & Data Results & Data ([facility]) Vital Signs (Past 12 Hours) Vital Signs Temp Pulse Pulse Pulse Pulse Resp BP 08/02/21 10:32 71 21 08/02/21 08:00 71 08/02/21 07:49 36.6 C 95 H 24 166/87 H 08/02/21 07:23 85 24 08/02/21 04:49 36.5 C 83 21 163/94 H 08/02/21 03:05 66 22 Pulse Ox 08/02/21 10:32 95 08/02/21 08:00 08/02/21 07:49 92 08/02/21 07:23 92 08/02/21 04:49 88 L 08/02/21 03:05 91 Laboratory Results Laboratory Results - last 24 hr 08/01/21 08/01/21 08/01/21 11:54 16:38 20:49 WBC RBC Hgb Hct MCV MCH MCHC RDW Std Deviation RDW Coeff of Lisseth Plt Count MPV Immature Gran % (Auto) Neut % (Auto) Lymph % (Auto) [place]ell % (Auto) Eos % (Auto) Baso % (Auto) Neut # (Auto) Lymph # (Auto) [place]ell # (Auto) Eos # (Auto) Baso # (Auto) Immature Gran # (Auto) Sodium Potassium Chloride Carbon Dioxide Anion Gap BUN Creatinine Est Cr Clr Drug Dosing Est GFR ( Amer) Est GFR (Non-Af Amer) BUN/Creatinine Ratio Glucose POC Glucose 122 H 192 H 158 H Calcium Phosphorus Magnesium 08/02/21 08/02/21 08/02/21 07:45 07:45 08:08 WBC 10.49 RBC 4.07 L Hgb 11.6 L Hct 35.5 L MCV 87.2 MCH 28.5 MCHC 32.7 RDW Std Deviation 52.3 H RDW Coeff of Lisseth 16.4 H Plt Count 187 MPV 9.4 Immature Gran % (Auto) 1.0 Neut % (Auto) 87.1 Lymph % (Auto) 6.4 Howell % (Auto) 3.5 Eos % (Auto) 1.9 Baso % (Auto) 0.1 Neut # (Auto) 9.13 H Lymph # (Auto) 0.67 L Howell # (Auto) 0.37 Eos # (Auto) 0.20 Baso # (Auto) 0.01 Immature Gran # (Auto) 0.11 H Sodium 137 Potassium 5.0 Chloride 100 Carbon Dioxide 24 Anion Gap 14.0 H BUN 94 H Creatinine 8.66 H* D Est Cr Clr Drug Dosing Not Reportable Est GFR ( Amer) 7.1 Est GFR (Non-Af Amer) 6.1 BUN/Creatinine Ratio 10.9 Glucose 101 H POC Glucose 108 H Calcium 10.8 H Phosphorus 9.3 H Magnesium 3.1 H Medications Administered Current Inpatient Medications Amlodipine Besylate (Amlodipine Besylate 5 Mg Tab) [facility] Stop: 08/21/21 08:59 Last Admin: 08/02/21 08:40 Dose: 5 mg Documented by: Atorvastatin Calcium (Atorvastatin 40 Mg Tab) 40 mg PO QAM RUSSELL Stop: 08/21/21 08:59 Last Admin: 08/02/21 08:39 Dose: 40 mg Documented by: Atropine Sulfate (Atropine Sulfate 0.1 Mg/Ml 10ml Syr) 0.5 mg IV .for use during dialysis PRN PRN Reason: HR < 60 with symptoms Stop: 08/30/21 08:11 Benzonatate (Benzonatate 100 Mg Capsule) 200 mg PO Q8H PRN PRN Reason: Cough Stop: 08/24/21 07:01 Last Admin: 08/02/21 08:52 Dose: 200 mg Documented by: Calcium Carbonate (Calcium Carbonate 500 Mg Chewable Tab) 500 mg PO TIDM RUSSELL Stop: 08/22/21 16:59 Last Admin: 08/02/21 08:40 Dose: 500 mg Documented by: Dextromethorphan Polymer Complex (Dextromethorphan Polymr Complx 30 Mg/5 Ml Udp) 30 mg PO Q6H PRN PRN Reason: Cough Stop: 08/20/21 21:52 Last Admin: 08/02/21 08:50 Dose: 30 mg Documented by: Dextrose (Dextrose 50% 50 Ml Syringe) 25 - 50 ml IV UD PRN; Protocol PRN Reason: Hypoglycemia Protocol Stop: 08/21/21 14:44 Glucagon (Glucagon For Inj 1 Mg Vial) 1 mg IM UD PRN; Protocol PRN Reason: Hypoglycemia Protocol Stop: 08/21/21 14:44 Glucose (Glucose 40% Gel 15 Gm Tube) 15 - 30 gm PO UD PRN; Protocol PRN Reason: Hypoglycemia Protocol Stop: 08/21/21 14:44 Glucose (Glucose 10 Tabs/Tube) 4 - 8 tabs PO UD PRN; Protocol PRN Reason: Hypoglycemia Protocol Stop: 08/21/21 14:44 Guaifenesin (Guaifenesin 600 Mg Tabcr) 1,200 mg PO Q12 [facility]USSELL Stop: 08/20/21 21:54 Last Admin: 08/02/21 08:39 Dose: 1,200 mg Documented by: Heparin Sodium (Porcine) (Heparin Sod 5,000 Unit/0.5 Ml Vial) 5,000 units SQ Q8 RUSSELL Stop: 08/21/21 21:59 Last Admin: 08/02/21 06:05 Dose: 5,000 units Documented by: Hydralazine HCl (Hydralazine Hcl 20 Mg/Ml Vial) 10 mg IV Q6 PRN PRN Reason: Blood Pressure - High Stop: 08/29/21 14:06 Last Admin: 08/01/21 07:54 Dose: 10 mg Documented by: Dexamethasone 10 mg/ Syringe 2.5 mls @ 1 mls/min IV QAM [facility] Stop: 08/24/21 08:59 Last Admin: 08/02/21 08:40 Dose: 1 mls/min Documented by: Pantoprazole Sodium 40 mg/ (Syringe) 10 mls @ 5 mls/min IV DAILY@1100 [facility] Stop: 08/30/21 10:59 Last Admin: 08/01/21 13:06 Dose: 5 mls/min Documented by: Lorazepam (Ativan) 0.25 mg in 0.5 mls @ 0.5 mls/min IV Q8H PRN PRN Reason: Anxiety Stop: 08/31/21 09:43 Last Admin: 08/01/21 13:06 Dose: 0.5 mls/min Documented by: Insulin Aspart (Insulin Aspart 100 Units/Ml 3 Ml Pen) 0 units SC ACHS [facility] Stop: 08/21/21 16:29 Last Admin: 08/02/21 08:25 Dose: 3 units Documented by: Insulin Glargine (Insulin Glargine Solostar 100 Units/Ml 3 Ml Pen) 8 units SC QAM [facility] Stop: 08/26/21 09:44 Last Admin: 08/02/21 08:25 Dose: 8 units Documented by: Metoprolol Tartrate (Metoprolol Tartrate 25 Mg Tab) 25 mg PO BID [facility] Stop: 08/31/21 20:59 Last Admin: 08/02/21 08:39 Dose: 25 mg Documented by: Miscellaneous (*Velphoro*Order Awaiting Action) 1 ea N/A QS [facility] Stop: 08/21/21 00:00 Last Admin: 08/02/21 08:41 Dose: Not Given Documented by: Miscellaneous (Carbohydrates For Hypoglycemia ) 15 - 30 gm PO UD PRN PRN Reason: Hypoglycemia Treatment Stop: 08/21/21 14:44 Ondansetron HCl (Ondansetron Inj 2 Mg/Ml 2 Ml Vial) 4 mg IV Q6H PRN PRN Reason: Nausea And Vomiting Stop: 08/24/21 14:10 Last Admin: 08/01/21 07:54 Dose: 4 mg Documented by: Sevelamer HCl (Sevelamer Hcl 800 Mg Tablet) 800 mg PO TIDM [facility] Stop: 08/31/21 11:59 Last Admin: 08/02/21 08:40 Dose: 800 mg Documented by: Sodium Polystyrene Sulfonate (Sodium Polystyrene Sulfonate 15g/60ml Susp) 15 gm PO SuTuThSa [facility] Stop: 08/21/21 08:59 Last Admin: 07/28/21 08:14 Dose: 15 gm Documented by: Vitamin B Complex (Vitamin B Complex Tab) 1 tab PO QAM [facility] Stop: 08/21/21 08:59 Last Admin: 08/02/21 08:39 Dose: 1 tab Documented by: Vitamin B Complex/Folic Acid (Nephrocaps) 1 cap PO QAM [facility] Stop: 08/23/21 08:59 Last Admin: 08/02/21 08:39 Dose: 1 cap Documented by: PG Care Time/CCT Total # of Minutes Spent Total Time Spent with Patient: Total time spent is greater than 50% in coordination of care (as documented) at patient's floor/unit and/or counseling patient: Coding Level of Care Code 05253 Subseq Hosp Care Lvl 3 Diagnoses Acute respiratory failure with hypoxia J96.01 Pneumonia due to 2019-nCoV U07.1; J12.82 Sinus bradycardia R00.1 Hypotension I95.9 Anxiety F41.9 Acute respiratory distress syndrome (ARDS) due to 2019 novel coronavirus U07.1; J80 Nausea R11.0 ESRD (end stage renal disease) on dialysis N18.6; Z99.2 Hyperparathyroidism E21.3 Hypercholesterolemia E78.00 Hypertension I10 Anemia due to chronic kidney disease N18.9; D63.1 DVT prophylaxis Z29.9 Diabetes mellitus type 2 in nonobese E11.9
[2021-08-02] MEDS: VELPHORO PO SCH ×2 (12:30→17:38)
[2021-08-02] MEDS: PANTOprazole 40 MG in SYRINGE 0 ML IV SCH (13:05)
[2021-08-02] MEDS: METOCLOPRAMIDE HCL INJ 5 MG/ML 2 ML VIAL IV SCH ×2 (13:05→21:01)
[2021-08-03] MEDS: HEPARIN SOD 5,000 UNIT/0.5 ML VIAL SQ SCH ×3 (06:21→20:14)
[2021-08-03] MEDS: METOCLOPRAMIDE HCL INJ 5 MG/ML 2 ML VIAL IV SCH ×3 (06:21→20:17)
[2021-08-03] MEDS ORDERED: SODIUM CHLORIDE 0.9% 1000ML 1,000 ML IV PRN (07:00)
[2021-08-03] MEDS ORDERED: HEPARIN SOD (PORCINE) 1000 UNIT/ML IV ONE (07:00)
[2021-08-03] MEDS ORDERED: HEPARIN SOD (PORCINE) 1000 UNIT/ML IV SCH (08:00)
[2021-08-03] MEDS: VELPHORO PO SCH ×3 (08:15→17:16)
[2021-08-03] MEDS: SEVELAMER HCL 800 MG TABLET PO SCH ×3 (08:16→17:17)
[2021-08-03] MEDS: amLODIPine BESYLATE 5 MG TAB PO SCH (08:17)
[2021-08-03] MEDS: ATORVASTATIN 40 MG TAB PO SCH (08:18)
[2021-08-03] MEDS: guaiFENesin 600 MG TABCR PO SCH ×2 (08:18→20:19)
[2021-08-03] MEDS: METOPROLOL TARTRATE 25 MG TAB PO SCH ×2 (08:19→20:14)
[2021-08-03] MEDS: NEPHROCAPS PO SCH (08:19)
[2021-08-03] MEDS: VITAMIN B COMPLEX TAB PO SCH (08:19)
[2021-08-03] MEDS: CALCIUM CARBONATE 500 MG CHEWABLE TAB PO SCH ×3 (08:29→16:49)
[2021-08-03] MEDS: INSULIN GLARGINE SOLOSTAR 100 UNITS/ML 3 ML PEN SC SCH (09:17)
[2021-08-03] MEDS: INSULIN ASPART 100 UNITS/ML 3 ML PEN SC SCH ×4 (09:20→20:11)
[2021-08-03 09:29] LABS: Hematocrit (blood only) 34.6 % (42-52); Hemoglobin 11.5 g/dL (14.0-18.0)
[2021-08-03] MEDS: dexAMETHasone 10 MG in SYRINGE 0 ML IV SCH (09:57)
[2021-08-03 10:07] LABS: BUN Creatinine Ratio 11.2 (10-20); Blood Urea Nitrogen 127 mg/dl (7-18); Carbon Dioxide 20 mmol/L (21-32); Chloride 97 mmol/L (98-107); Est GFR (African American) 5.2 ml/min; Est GFR (Non-African American) 4.5 ml/min; Glucose 124 mg/dl (70-99); Potassium 5.3 mmol/L (3.5-5.1); Sodium 134 mmol/L (136-145)
--- NOTE | 2021-08-03 10:24 | Nephrology Progress Note ---
Date of Service August 03, 2021 Assessment & Plan (1) ESRD (end stage renal disease) on dialysis: Plan: Orders for HD today entered into EHR and reviewed with dialysis nurse. Low potassium bath. UF goal ~3 L, as tolerated. Update metabolic profile tomorrow AM. Renvela 1 tab QAC for hyperphosphatemia. Medications appropriately dosed for kidney dysfunction and dialysis. AVF functioning well. (2) History of kidney transplant: Plan: Status 7 currently due to hospitalization and COVID. (3) Pneumonia due to COVID-19 virus: Plan: Remains on Decadron. Superimposed ARDS. Pulmonary following. Continues to require very high amounts of supplemental O2. Admission and Anticipated Discharge Date Admission Date: July 23, 2021 Subjective No acute events overnight. Remains on high-flow nasal cannula. Very weak and deconditioned. No fevers or chills. Review of Systems Review of Systems: All systems reviewed & are unremarkable except as noted in HPI & below Physical Exam Constitutional: + ill appearing; no acute distress Eyes: no scleral abnormality and no corneal abnormality Neck: normal visual inspection and trachea midline Respiratory: + tachypneic Auscultation: + rhonchi Cardiovascular: Rate/Rhythm: regular rhythm and + tachycardic Heart Sounds: normal S1, normal S2 and + murmur Extremities: + AV fistula; no edema Musculoskeletal: Extremities: no cyanosis and no clubbing Skin: normal turgor; no lesions Neurologic: Motor/Sensory: no tremor and no asterixis Psychiatric: Orientation: alert and oriented x 3 Results & Data ([facility]) Vital Signs (Past 12 Hours) Vital Signs Temp Pulse Pulse Pulse Resp BP Pulse Ox 08/03/21 08:00 64 08/03/21 07:50 74 24 91 08/03/21 07:42 162/81 H 08/03/21 07:29 36.5 C 73 20 181/90 H 92 08/03/21 02:52 63 20 90 08/03/21 02:38 36.5 C 68 22 152/85 H 90 08/03/21 02:33 77 08/02/21 23:40 72 20 88 L Laboratory Results Laboratory Results - last 24 hr 08/02/21 08/02/21 08/02/21 11:57 16:54 20:27 Hgb Hct Sodium Potassium Chloride Carbon Dioxide Anion Gap BUN Creatinine Est Cr Clr Drug Dosing Est GFR ( Amer) Est GFR (Non-Af Amer) BUN/Creatinine Ratio Glucose POC Glucose 94 109 H 90 Calcium 08/03/21 08/03/21 08/03/21 07:48 09:13 09:13 Hgb 11.5 L Hct 34.6 L Sodium 134 L Potassium 5.3 H Chloride 97 L Carbon Dioxide 20 L Anion Gap 17.0 H BUN 127 H Creatinine 11.20 H* D Est Cr Clr Drug Dosing Not Reportable Est GFR ( Amer) 5.2 Est GFR (Non-Af Amer) 4.5 BUN/Creatinine Ratio 11.2 Glucose 124 H POC Glucose 93 Calcium 10.0 PG Care Time/CCT Total # of Minutes Spent Total Time Spent with Patient: Total time spent is greater than 50% in coordination of care (as documented) at patient's floor/unit and/or counseling patient: Coding Level of Care Code 92549 Subseq Hosp Care Lvl 3 Diagnoses ESRD (end stage renal disease) on dialysis N18.6; Z99.2 History of kidney transplant Z94.0 Pneumonia due to COVID-19 virus U07.1; J12.82
[2021-08-03] MEDS: ONDANSETRON INJ 2 MG/ML 2 ML VIAL IV PRN (11:03)
[2021-08-03] MEDS: PANTOprazole 40 MG in SYRINGE 0 ML IV SCH (11:04)
--- NOTE | 2021-08-03 14:27 | Hospitalist Progress Note ---
Date of Service August 03, 2021 Assessment & Plan (1) Acute respiratory failure with hypoxia: Plan: due to severe COVID-19 pneumonia, developed into ARDS. Pulmonary edema likely contributing, difficult to remove fluid with HD initially improved oxygen requirements after 3 HD sessions last week today he is on 40L 80%, plan for HD this afternoon for 3L of UF if possible use Ativan 0.25mg IV q8 PRN for anxiety, helps a lot with breathing completed 7 days of cefepime/doxy Deferred on MRSA coverage - MRSA swab neg. Remains on Dexamethasone 10mg/day to cover for development of ARDS. See below. (2) Pneumonia due to 2019-nCoV: Plan: day #13 dexamethasone today - dose was increased from 6 to 10mg on 07/25/21 to cover for possibility of developing ARDS. continue 10mg until 08/04 then decrease to 6mg and taper off not a candidate for Remdesivir treatment crp and procal both high - abx initiated on 07/25/21 - finished 7 days of Cefepime/Doxy flutter valve, IS, etc supportive care. unfortunately cannot prone - he attempted w/o succcess. not a candidate for Toci or Baricitinib CRP down to 11 on 07/30 breathing is okay when he is sleeping, resting, gets really bad with anxiety attacks guarded prognosis, hope to decrease oxygen requirements with ultrafiltration today (3) Sinus bradycardia: Plan: dropped to 40's on morning of 07/30 EKG showed sinus rhythm, no block responded to Atropine 0.5mg IV push, no further doses needed give Atropine again PRN metoprolol was on hold for two days, resumed at 25mg BID, HR in 60-70's back to PCU status on 07/31 (4) Hypotension: Plan: occurred on 07/30, now resolved, actually hypertensive (5) ESRD (end stage renal disease) on dialysis: Plan: [facility] [facility] typical HD schedule of M/W/F HD planned for today, low K bath and will shoot for 3L of UF (6) Anxiety: Plan: driving work of breathing and desaturation episodes triggered by dry heaves, then he feels like he cannot breathe, RR goes up to high 40's good response to Ativan 0.25mg IV q8 PRN he says he needs something when the anxiety gets really bad (7) Acute respiratory distress syndrome (ARDS) due to 2019 novel coronavirus: Plan: see above dexamethasone, try to keep euvolemic to dry with HD Ativan for anxiety unfortunately he cannot lay prone (8) Nausea: Plan: dry heaves, triggers desaturation episodes not much relief with Zofran good response to Reglan, continue q8 scheduled for 1-2 days (9) Diabetes mellitus type 2 in nonobese: Plan: controlled at this time novolog SSI lantus 8 units daily monitor for hypoglycemia (10) Hyperparathyroidism: Plan: Secondary to ESRD Continue VELPHORO (11) Hypercholesterolemia: Plan: Continue atorvastatin LFTs nl this admission (12) Hypertension: Plan: resumed Norvasc 5mg daily resume metoprolol 25mg BID Hydralazine PRN (13) Anemia due to chronic kidney disease: Plan: stable (14) DVT prophylaxis: Plan: heparin TID recent CTA chest neg for PE Plan: HD today with goal of 3L UF try to wean oxygen guarded prognosis Admission and Anticipated Discharge Date Admission Date: July 23, 2021 Subjective patient doing okay today, he is on 40L and 80%, still waiting on HD which will be this afternoon d/w Dr. Loomis, goal is 3L ultrafiltration, hope that it will help breathing and lower FiO2 he is eating well, no nausea, the Reglan is really helping still with cough, not productive labs reviewed HR stable on monitor, no further issues with bradycardia Review of Systems Review of Systems: All systems reviewed & are unremarkable except as noted in Subjective Constitutional: + fatigue and + weakness Respiratory: + cough, + dyspnea and + dyspnea on exertion Cardiovascular: no chest pain Gastrointestinal: no abdominal pain, no nausea and no vomiting Physical Exam Physical Exam: General: well developed, well nourished, obese male, comfortable, no distress Neck: supple, trachea midline, normal thyroid Lungs: clear to auscultation bilaterally, tachypneic, belly breathing, no distress today Heart: regular rate, S1 and S2, no murmur, peripheral pulses normal, capillary refill normal, no edema, LUE fistula with thrill and bruit Abdomen: soft, NT, distended, + BS, no hepatomegaly, normal to percussion Extremities: normal in appearance, no cyanosis, no petechiae, + generalized weakness Neuro: awake, cooperative, moves all extremities, no focal motor deficits, CN II-XII intact, sensation in extremities intact, normal speech Skin: warm, dry, no rash, normal turgor Psych: Awake, alert oriented x 3, calm today Results & Data Results & Data ([facility]) Vital Signs (Past 12 Hours) Vital Signs Temp Pulse Pulse Pulse Pulse Resp BP 08/03/21 11:07 63 27 H 08/03/21 10:58 36.5 C 72 19 131/71 08/03/21 08:00 64 08/03/21 07:50 74 24 08/03/21 07:42 08/03/21 07:29 36.5 C 73 20 08/03/21 02:52 63 20 08/03/21 02:38 36.5 C 68 22 08/03/21 02:33 77 BP Pulse Ox 08/03/21 11:07 91 08/03/21 10:58 90 08/03/21 08:00 08/03/21 07:50 91 08/03/21 07:42 162/81 H 08/03/21 07:29 181/90 H 92 08/03/21 02:52 90 08/03/21 02:38 152/85 H 90 08/03/21 02:33 Laboratory Results Laboratory Results - last 24 hr 08/02/21 08/02/21 08/03/21 16:54 20:27 07:48 Hgb Hct Sodium Potassium Chloride Carbon Dioxide Anion Gap BUN Creatinine Est Cr Clr Drug Dosing Est GFR ( Amer) Est GFR (Non-Af Amer) BUN/Creatinine Ratio Glucose POC Glucose 109 H 90 93 Calcium 08/03/21 08/03/21 08/03/21 09:13 09:13 12:08 Hgb 11.5 L Hct 34.6 L Sodium 134 L Potassium 5.3 H Chloride 97 L Carbon Dioxide 20 L Anion Gap 17.0 H BUN 127 H Creatinine 11.20 H* D Est Cr Clr Drug Dosing Not Reportable Est GFR ( Amer) 5.2 Est GFR (Non-Af Amer) 4.5 BUN/Creatinine Ratio 11.2 Glucose 124 H POC Glucose 125 H Calcium 10.0 Medications Administered Current Inpatient Medications Amlodipine Besylate (Amlodipine Besylate 5 Mg Tab) 5 mg PO QAM [facility] Stop: 08/21/21 08:59 Last Admin: 08/03/21 08:17 Dose: 5 mg Documented by: Atorvastatin Calcium (Atorvastatin 40 Mg Tab) 40 mg PO QAM [facility] Stop: 08/21/21 08:59 Last Admin: 08/03/21 08:18 Dose: 40 mg Documented by: Atropine Sulfate (Atropine Sulfate 0.1 Mg/Ml 10ml Syr) 0.5 mg IV .for use during dialysis PRN PRN Reason: HR < 60 with symptoms Stop: 08/30/21 08:11 Benzonatate (Benzonatate 100 Mg Capsule) 200 mg PO Q8H PRN PRN Reason: Cough Stop: 08/24/21 07:01 Last Admin: 08/02/21 22:23 Dose: 200 mg Documented by: Calcium Carbonate (Calcium Carbonate 500 Mg Chewable Tab) 500 mg PO TIDM [facility] Stop: 08/22/21 16:59 Last Admin: 08/03/21 12:37 Dose: Not Given Documented by: Dextromethorphan Polymer Complex (Dextromethorphan Polymr Complx 30 Mg/5 Ml Udp) 30 mg PO Q6H PRN PRN Reason: Cough Stop: 08/20/21 21:52 Last Admin: 08/02/21 08:50 Dose: 30 mg Documented by: Dextrose (Dextrose 50% 50 Ml Syringe) 25 - 50 ml IV UD PRN; Protocol PRN Reason: Hypoglycemia Protocol Stop: 08/21/21 14:44 Glucagon (Glucagon For Inj 1 Mg Vial) 1 mg IM UD PRN; Protocol PRN Reason: Hypoglycemia Protocol Stop: 08/21/21 14:44 Glucose (Glucose 40% Gel 15 Gm Tube) 15 - 30 gm PO UD PRN; Protocol PRN Reason: Hypoglycemia Protocol Stop: 08/21/21 14:44 Glucose (Glucose 10 Tabs/Tube) 4 - 8 tabs PO UD PRN; Protocol PRN Reason: Hypoglycemia Protocol Stop: 08/21/21 14:44 Guaifenesin (Guaifenesin 600 Mg Tabcr) 1,200 mg PO Q12 [facility] Stop: 08/20/21 21:54 Last Admin: 08/03/21 08:18 Dose: 1,200 mg Documented by: Heparin Sodium (Porcine) (Heparin Sod 5,000 Unit/0.5 Ml Vial) 5,000 units SQ Q8 [facility] Stop: 08/21/21 21:59 Last Admin: 08/03/21 14:18 Dose: 5,000 units Documented by: Hydralazine HCl (Hydralazine Hcl 20 Mg/Ml Vial) 10 mg IV Q6 PRN PRN Reason: Blood Pressure - High Stop: 08/29/21 14:06 Last Admin: 08/01/21 07:54 Dose: 10 mg Documented by: Dexamethasone 10 mg/ Syringe 2.5 mls @ 1 mls/min IV QAM [facility] Stop: 08/24/21 08:59 Last Admin: 08/03/21 09:57 Dose: 1 mls/min Documented by: Pantoprazole Sodium 40 mg/ (Syringe) 10 mls @ 5 mls/min IV DAILY@1100 [facility] Stop: 08/30/21 10:59 Last Admin: 08/03/21 11:04 Dose: 5 mls/min Documented by: Lorazepam (Ativan) 0.25 mg in 0.5 mls @ 0.5 mls/min IV Q8H PRN PRN Reason: Anxiety Stop: 08/31/21 09:43 Last Admin: 08/01/21 13:06 Dose: 0.5 mls/min Documented by: Insulin Aspart (Insulin Aspart 100 Units/Ml 3 Ml Pen) 0 units SC ACHS [facility] Stop: 08/21/21 16:29 Last Admin: 08/03/21 12:54 Dose: 4 units Documented by: Insulin Glargine (Insulin Glargine Solostar 100 Units/Ml 3 Ml Pen) 8 units SC QAM [facility] Stop: 08/26/21 09:44 Last Admin: 08/03/21 09:17 Dose: 8 units Documented by: Metoclopramide HCl (Metoclopramide Hcl Inj 5 Mg/Ml 2 Ml Vial) 10 mg IV Q8 [facility] Stop: 09/01/21 13:59 Last Admin: 08/03/21 14:16 Dose: 10 mg Documented by: Metoprolol Tartrate (Metoprolol Tartrate 25 Mg Tab) 25 mg PO BID [facility] Stop: 08/31/21 20:59 Last Admin: 08/03/21 08:19 Dose: 25 mg Documented by: Miscellaneous (Carbohydrates For Hypoglycemia ) 15 - 30 gm PO UD PRN PRN Reason: Hypoglycemia Treatment Stop: 08/21/21 14:44 Velphoro ~ Non- Formulary Patient's Own Med 2 ea PO TIDM [facility] Stop: 09/01/21 11:59 Last Admin: 08/03/21 12:37 Dose: 2 tabs Documented by: Ondansetron HCl (Ondansetron Inj 2 Mg/Ml 2 Ml Vial) 4 mg IV Q6H PRN PRN Reason: Nausea And Vomiting Stop: 08/24/21 14:10 Last Admin: 08/03/21 11:03 Dose: 4 mg Documented by: Sevelamer HCl (Sevelamer Hcl 800 Mg Tablet) 800 mg PO TIDM [facility] Stop: 08/31/21 11:59 Last Admin: 08/03/21 12:37 Dose: 800 mg Documented by: Sodium Polystyrene Sulfonate (Sodium Polystyrene Sulfonate 15g/60ml Susp) 15 gm PO SuTuThSa [facility] Stop: 08/21/21 08:59 Last Admin: 07/28/21 08:14 Dose: 15 gm Documented by: Vitamin B Complex (Vitamin B Complex Tab) 1 tab PO QAM [facility] Stop: 08/21/21 08:59 Last Admin: 08/03/21 08:19 Dose: 1 tab Documented by: Vitamin B Complex/Folic Acid (Nephrocaps) 1 cap PO QAM [facility] Stop: 08/23/21 08:59 Last Admin: 08/03/21 08:19 Dose: 1 cap Documented by: PG Care Time/CCT Total # of Minutes Spent Total Time Spent with Patient: Total time spent is greater than 50% in coordination of care (as documented) at patient's floor/unit and/or counseling patient: Coding Level of Care Code 77921 Subseq Hosp Care Lvl 3 Diagnoses Acute respiratory failure with hypoxia J96.01 Pneumonia due to 2019-nCoV U07.1; J12.82 Sinus bradycardia R00.1 Hypotension I95.9 ESRD (end stage renal disease) on dialysis N18.6; Z99.2 Anxiety F41.9 Acute respiratory distress syndrome (ARDS) due to 2019 novel coronavirus U07.1; J80 Nausea R11.0 Diabetes mellitus type 2 in nonobese E11.9 Hyperparathyroidism E21.3 Hypercholesterolemia E78.00 Hypertension I10 Anemia due to chronic kidney disease N18.9; D63.1 DVT prophylaxis Z29.9
[2021-08-04] MEDS: DEXTROMETHORPHAN POLYMR COMPLX 30 MG/5 ML UDP PO PRN ×2 (00:09→18:01)
[2021-08-04] MEDS: CALCIUM CARBONATE 500 MG CHEWABLE TAB PO SCH ×3 (08:50→16:28)
[2021-08-04] MEDS: VELPHORO PO SCH ×3 (08:51→17:54)
[2021-08-04] MEDS: SEVELAMER HCL 800 MG TABLET PO SCH ×3 (08:53→17:54)
[2021-08-04] MEDS: amLODIPine BESYLATE 5 MG TAB PO SCH (08:54)
[2021-08-04] MEDS: ATORVASTATIN 40 MG TAB PO SCH (08:55)
[2021-08-04] MEDS: METOPROLOL TARTRATE 25 MG TAB PO SCH ×2 (08:56→20:38)
[2021-08-04] MEDS: dexAMETHasone 10 MG in SYRINGE 0 ML IV SCH (08:56)
[2021-08-04] MEDS: guaiFENesin 600 MG TABCR PO SCH ×2 (08:56→20:39)
[2021-08-04] MEDS: VITAMIN B COMPLEX TAB PO SCH (08:57)
[2021-08-04] MEDS: ONDANSETRON INJ 2 MG/ML 2 ML VIAL IV PRN (08:58)
[2021-08-04] MEDS: INSULIN GLARGINE SOLOSTAR 100 UNITS/ML 3 ML PEN SC SCH (09:02)
[2021-08-04] MEDS: INSULIN ASPART 100 UNITS/ML 3 ML PEN SC SCH ×4 (09:03→20:39)
[2021-08-04] MEDS ORDERED: HEPARIN SOD (PORCINE) 1000 UNIT/ML IV ONE (09:19)
[2021-08-04] MEDS ORDERED: SODIUM CHLORIDE 0.9% 1000ML 1,000 ML IV PRN (09:19)
[2021-08-04] MEDS: NEPHROCAPS PO SCH (09:41)
[2021-08-04 09:42] LABS: Hematocrit (blood only) 34.6 % (42-52); Hemoglobin 11.2 g/dL (14.0-18.0); Mean Corpuscular Hemoglobin 28.3 pg (25-34); Mean Corpuscular Volume 87.4 fL (80-100); Mean Platelet Volume 9.3 fL (7.4-10.4); Platelet Count 195 K/uL (130-400); RDW Coefficient of Variation 16.2 % (11.5-14.5); RDW Standard Deviation 52.7 fL (36.4-46.3); Red Blood Count 3.96 M/uL (4.7-6.1)
[2021-08-04 09:50] LABS: Mean Corpuscular Hgb Conc 32.4 g/dL (32-36)
--- NOTE | 2021-08-04 09:54 | Nephrology Progress Note ---
Date of Service August 04, 2021 Assessment & Plan (1) ESRD (end stage renal disease) on dialysis: Plan: * Awaiting am labs * Will provide brief HD today to attempt further ultrafiltration and rest tomorrow * Orders for 2 hrs HD w/ 2L UF placed in EMR. HD RN notified * AVF + bruit (2) History of kidney transplant: Plan: * Status 7 currently due to hospitalization and COVID (3) Pneumonia due to COVID-19 virus: Plan: * Remains on Decadron. Superimposed ARDS. Pulmonary following. Continues to require very high amounts of supplemental O2 Admission and Anticipated Discharge Date Admission Date: July 23, 2021 Subjective Mr. Levy was evaluated in his hospital room this morning. He was dialyzed yesterday for 3 hours with 900 cc UF. AM labs are pending. This morning Mr. Levy remains on high flow O2 at 40L/min. SaO2 is only 88%. He reports dyspnea with any exertion. Review of Systems Constitutional: + weakness Eyes: no worsening vision and no problem reported Ear, Nose, Mouth, Throat: no problem reported Respiratory: + dyspnea Cardiovascular: no chest pain and no palpitations Gastrointestinal: no abdominal pain Neurologic: no confusion Physical Exam Constitutional: + ill appearing Eyes: PERRL, conjunctivae normal, anicteric sclerae ENMT: external ear and nose normal, oropharynx normal Neck: trachea midline, no thyromegaly Respiratory: normal respiratory effort, lungs clear to auscultation Cardiovascular: RRR, no murmur, no edema Gastrointestinal (Abdomen): normal bowel sounds, soft, nontender, no hepatosplenomegaly Skin: no rashes, warm and dry Neurologic: awake; not confused Results & Data ([facility]) Vital Signs (Past 12 Hours) Vital Signs Temp Pulse Pulse Pulse Resp BP Pulse Ox 08/04/21 08:08 36.5 C 64 20 129/72 88 L 08/04/21 05:29 79 24 93 08/04/21 03:26 36.6 C 61 24 136/69 91 08/04/21 02:52 56 L 22 94 08/04/21 00:40 71 08/03/21 23:10 36.8 C 64 24 114/74 90 08/03/21 22:48 71 26 H 89 L PG Care Time/CCT Total # of Minutes Spent Total Time Spent with Patient: Total time spent is greater than 50% in coordination of care (as documented) at patient's floor/unit and/or counseling patient: Coding Level of Care Code 56350 Subseq Hosp Care Lvl 3 Diagnoses ESRD (end stage renal disease) on dialysis N18.6; Z99.2 History of kidney transplant Z94.0 Pneumonia due to COVID-19 virus U07.1; J12.82
[2021-08-04 10:12] LABS: BUN Creatinine Ratio 10.8 (10-20); Blood Urea Nitrogen 104 mg/dl (7-18); Calcium 10.3 mg/dl (8.5-10.1); Carbon Dioxide 23 mmol/L (21-32); Chloride 99 mmol/L (98-107); Est GFR (African American) 6.2 ml/min; Est GFR (Non-African American) 5.4 ml/min; Glucose 131 mg/dl (70-99); Potassium 4.9 mmol/L (3.5-5.1); Sodium 136 mmol/L (136-145)
--- NOTE | 2021-08-04 10:38 | Hospitalist Progress Note ---
Date of Service August 04, 2021 Assessment & Plan (1) Acute respiratory failure with hypoxia: Plan: due to severe COVID-19 pneumonia, developed into ARDS. Pulmonary edema likely contributing, difficult to remove fluid with HD initially improved oxygen requirements after 3 HD sessions last week today he is on 40L 90%, HD yesterday with UF 1600mL, HD today with only 900mL use Ativan 0.25mg IV q8 PRN for anxiety, helps a lot with breathing completed 7 days of cefepime/doxy Deferred on MRSA coverage - MRSA swab neg. Remains on Dexamethasone 10mg/day to cover for development of ARDS. See below. (2) Pneumonia due to 2019-nCoV: Plan: day #14 dexamethasone today - dose was increased from 6 to 10mg on 07/25/21 to cover for possibility of developing ARDS. continue 10mg until 08/04, today, decrease to 6mg tomorrow not a candidate for Remdesivir treatment crp and procal both high - abx initiated on 07/25/21 - finished 7 days of Cefepime/Doxy flutter valve, IS, etc supportive care. unfortunately cannot prone - he attempted w/o succcess. not a candidate for Toci or Baricitinib CRP down to 11 on 07/30 breathing is okay when he is sleeping, resting, gets really bad with anxiety attacks guarded prognosis, hope to decrease oxygen requirements but no luck the past two days (3) Sinus bradycardia: Plan: dropped to 40's on morning of 07/30 EKG showed sinus rhythm, no block responded to Atropine 0.5mg IV push, no further doses needed give Atropine again PRN metoprolol was on hold for two days, resumed at 25mg BID, HR in 60-70's back to PCU status on 07/31 (4) Hypotension: Plan: occurred on 07/30, now resolved, actually hypertensive (5) ESRD (end stage renal disease) on dialysis: Plan: [facility] [place] nephrology typical HD schedule of M// only 1600mL UF yesterday and 900mL today no chance of HD tomorrow as there is no staff (6) Anxiety: Plan: driving work of breathing and desaturation episodes triggered by dry heaves, then he feels like he cannot breathe, RR goes up to high 40's good response to Ativan 0.25mg IV q8 PRN he says he needs something when the anxiety gets really bad (7) Acute respiratory distress syndrome (ARDS) due to 2019 novel coronavirus: Plan: see above dexamethasone, try to keep euvolemic to dry with HD Ativan for anxiety unfortunately he cannot lay prone (8) Nausea: Plan: dry heaves, triggers desaturation episodes not much relief with Zofran good response to Reglan, continue q8 scheduled for 1-2 days (9) Diabetes mellitus type 2 in nonobese: Plan: controlled at this time novolog SSI lantus 8 units daily monitor for hypoglycemia (10) Hyperparathyroidism: Plan: Secondary to ESRD Continue VELPHORO (11) Hypercholesterolemia: Plan: Continue atorvastatin LFTs nl this admission (12) Hypertension: Plan: resumed Norvasc 5mg daily resume metoprolol 25mg BID Hydralazine PRN (13) Anemia due to chronic kidney disease: Plan: stable (14) DVT prophylaxis: Plan: heparin TID recent CTA chest neg for PE Plan: HD today with goal of 3L UF try to wean oxygen guarded prognosis Admission and Anticipated Discharge Date Admission Date: July 23, 2021 Subjective reviewed labs, discussed with Dr. Titus HD was cut short because patient's BP dropped and he felt light headed, UF only 900mL patient on 40L and 90%, says he feels fine in terms of his breathing no nausea, will stop the Reglan, eating fairly well had a BM this morning Review of Systems Review of Systems: All systems reviewed & are unremarkable except as noted in Subjective Constitutional: + fatigue and + weakness Respiratory: + cough, + dyspnea and + dyspnea on exertion Physical Exam Physical Exam: General: well developed, well nourished, obese male, comfortable, no distress Neck: supple, trachea midline, normal thyroid Lungs: clear to auscultation bilaterally, tachypneic, belly breathing, no distress today Heart: regular rate, S1 and S2, no murmur, peripheral pulses normal, capillary refill normal, no edema, LUE fistula with thrill and bruit Abdomen: soft, NT, distended, + BS, no hepatomegaly, normal to percussion Extremities: normal in appearance, no cyanosis, no petechiae, + generalized weakness Neuro: awake, cooperative, moves all extremities, no focal motor deficits, CN II-XII intact, sensation in extremities intact, normal speech Skin: warm, dry, no rash, normal turgor Psych: Awake, alert oriented x 3, calm today Results & Data Results & Data ([facility]) Vital Signs (Past 12 Hours) Vital Signs Temp Pulse Pulse Pulse Resp BP Pulse Ox 08/04/21 08:08 36.5 C 64 20 129/72 88 L 08/04/21 08:00 61 08/04/21 05:29 79 24 93 08/04/21 03:26 36.6 C 61 24 136/69 91 08/04/21 02:52 56 L 22 94 08/04/21 00:40 71 08/03/21 23:10 36.8 C 64 24 114/74 90 08/03/21 22:48 71 26 H 89 L Laboratory Results Laboratory Results - last 24 hr 08/03/21 08/03/21 08/03/21 12:08 16:44 20:01 WBC RBC Hgb Hct MCV MCH MCHC RDW Std Deviation RDW Coeff of Lisseth Plt Count MPV Sodium Potassium Chloride Carbon Dioxide Anion Gap BUN Creatinine Est Cr Clr Drug Dosing Est GFR ( Amer) Est GFR (Non-Af Amer) BUN/Creatinine Ratio Glucose POC Glucose 125 H 129 H 173 H Calcium 08/04/21 08/04/21 08/04/21 07:57 09:22 09:22 WBC 10.40 RBC 3.96 L Hgb 11.2 L Hct 34.6 L MCV 87.4 MCH 28.3 MCHC 32.4 RDW Std Deviation 52.7 H RDW Coeff of Lisseth 16.2 H Plt Count 195 MPV 9.3 Sodium 136 Potassium 4.9 Chloride 99 Carbon Dioxide 23 Anion Gap 14.0 H BUN 104 H Creatinine 9.67 H* D Est Cr Clr Drug Dosing Not Reportable Est GFR ( Amer) 6.2 Est GFR (Non-Af Amer) 5.4 BUN/Creatinine Ratio 10.8 Glucose 131 H POC Glucose 88 Calcium 10.3 H Medications Administered Current Inpatient Medications Amlodipine Besylate (Amlodipine Besylate 5 Mg Tab) [facility] [place] Stop: 08/21/21 08:59 Last Admin: 08/04/21 08:54 Dose: 5 mg Documented by: Atorvastatin Calcium (Atorvastatin 40 Mg Tab) 40 mg [facility] [place] Stop: 08/21/21 08:59 Last Admin: 08/04/21 08:55 Dose: 40 mg Documented by: Atropine Sulfate (Atropine Sulfate 0.1 Mg/Ml 10ml Syr) 0.5 mg IV .for use du ring dialysis PRN PRN Reason: HR < 60 with symptoms Stop: 08/30/21 08:11 Benzonatate (Benzonatate 100 Mg Capsule) 200 mg PO Q8H PRN PRN Reason: Cough Stop: 08/24/21 07:01 Last Admin: 08/02/21 22:23 Dose: 200 mg Documented by: Calcium Carbonate (Calcium Carbonate 500 Mg Chewable Tab) 500 mg PO TIDM RUSSELL Stop: 08/22/21 16:59 Last Admin: 08/04/21 08:50 Dose: Not Given Documented by: Dextromethorphan Polymer Complex (Dextromethorphan Polymr Complx 30 Mg/5 Ml Udp) 30 mg PO Q6H PRN PRN Reason: Cough Stop: 08/20/21 21:52 Last Admin: 08/04/21 00:09 Dose: 30 mg Documented by: Dextrose (Dextrose 50% 50 Ml Syringe) 25 - 50 ml IV UD PRN; Protocol PRN Reason: Hypoglycemia Protocol Stop: 08/21/21 14:44 Glucagon (Glucagon For Inj 1 Mg Vial) 1 mg IM UD PRN; Protocol PRN Reason: Hypoglycemia Protocol Stop: 08/21/21 14:44 Glucose (Glucose 40% Gel 15 Gm Tube) 15 - 30 gm PO UD PRN; Protocol PRN Reason: Hypoglycemia Protocol Stop: 08/21/21 14:44 Glucose (Glucose 10 Tabs/Tube) 4 - 8 tabs PO UD PRN; Protocol PRN Reason: Hypoglycemia Protocol Stop: 08/21/21 14:44 Guaifenesin (Guaifenesin 600 Mg Tabcr) 1,200 mg PO Q12 RUSSELL Stop: 08/20/21 21:54 Last Admin: 08/04/21 08:56 Dose: 1,200 mg Documented by: Heparin Sodium (Porcine) (Heparin Sod 5,000 Unit/0.5 Ml Vial) 5,000 units SQ Q8 RUSSELL Stop: 08/21/21 21:59 Last Admin: 08/03/21 20:14 Dose: 5,000 units Documented by: Hydralazine HCl (Hydralazine Hcl 20 Mg/Ml Vial) 10 mg IV Q6 PRN PRN Reason: Blood Pressure - High Stop: 08/29/21 14:06 Last Admin: 08/01/21 07:54 Dose: 10 mg Documented by: Dexamethasone 10 mg/ Syringe 2.5 mls @ 1 mls/min IV QAM [facility] Stop: 08/24/21 08:59 Last Admin: 08/04/21 08:56 Dose: 1 mls/min Documented by: Pantoprazole Sodium 40 mg/ (Syringe) 10 mls @ 5 mls/min IV DAILY@1100 [facility] Stop: 08/30/21 10:59 Last Admin: 08/03/21 11:04 Dose: 5 mls/min Documented by: Lorazepam (Ativan) 0.25 mg in 0.5 mls @ 0.5 mls/min IV Q8H PRN PRN Reason: Anxiety Stop: 08/31/21 09:43 Last Admin: 08/01/21 13:06 Dose: 0.5 mls/min Documented by: Sodium Chloride (Nss 1000ml) 1,000 mls @ 0 mls/hr IV .Q0M PRN PRN Reason: For Hemodialysis Use ONLY Stop: 08/04/21 15:18 Insulin Aspart (Insulin Aspart 100 Units/Ml 3 Ml Pen) 0 units SC ACHS [facility] Stop: 08/21/21 16:29 Last Admin: 08/04/21 09:03 Dose: 1 units Documented by: Insulin Glargine (Insulin Glargine Solostar 100 Units/Ml 3 Ml Pen) 8 units SC QAM [facility] Stop: 08/26/21 09:44 Last Admin: 08/04/21 09:02 Dose: 8 units Documented by: Metoclopramide HCl (Metoclopramide Hcl Inj 5 Mg/Ml 2 Ml Vial) 10 mg IV Q8 [facility] Stop: 09/01/21 13:59 Last Admin: 08/03/21 20:17 Dose: 10 mg Documented by: Metoprolol Tartrate (Metoprolol Tartrate 25 Mg Tab) 25 mg PO BID [facility] Stop: 08/31/21 20:59 Last Admin: 08/04/21 08:56 Dose: 25 mg Documented by: Miscellaneous (Carbohydrates For Hypoglycemia ) 15 - 30 gm PO UD PRN PRN Reason: Hypoglycemia Treatment Stop: 08/21/21 14:44 Velphoro ~ Non- Formulary Patient's Own Med 2 ea PO TIDM [facility] Stop: 09/01/21 11:59 Last Admin: 08/04/21 08:51 Dose: 2 tabs Documented by: Ondansetron HCl (Ondansetron Inj 2 Mg/Ml 2 Ml Vial) 4 mg IV Q6H PRN PRN Reason: Nausea And Vomiting Stop: 08/24/21 14:10 Last Admin: 08/04/21 08:58 Dose: 4 mg Documented by: Sevelamer HCl (Sevelamer Hcl 800 Mg Tablet) 800 mg PO TIDM [facility] Stop: 08/31/21 11:59 Last Admin: 08/04/21 08:53 Dose: 800 mg Documented by: Sodium Polystyrene Sulfonate (Sodium Polystyrene Sulfonate 15g/60ml Susp) 15 gm PO SuTuThSa [facility] Stop: 08/21/21 08:59 Last Admin: 07/28/21 08:14 Dose: 15 gm Documented by: Vitamin B Complex (Vitamin B Complex Tab) 1 tab PO QAM [facility] Stop: 08/21/21 08:59 Last Admin: 08/04/21 08:57 Dose: 1 tab Documented by: Vitamin B Complex/Folic Acid (Nephrocaps) 1 cap PO QAM [facility] Stop: 08/23/21 08:59 Last Admin: 08/04/21 09:41 Dose: 1 cap Documented by: PG Care Time/CCT Total # of Minutes Spent Total Time Spent with Patient: Total time spent is greater than 50% in coordination of care (as documented) at patient's floor/unit and/or counseling patient: Coding Level of Care Code 42521 Subseq Hosp Care Lvl 2 Diagnoses Acute respiratory failure with hypoxia J96.01 Pneumonia due to 2019-nCoV U07.1; J12.82 Sinus bradycardia R00.1 Hypotension I95.9 ESRD (end stage renal disease) on dialysis N18.6; Z99.2 Anxiety F41.9 Acute respiratory distress syndrome (ARDS) due to 2019 novel coronavirus U07.1; J80 Nausea R11.0 Diabetes mellitus type 2 in nonobese E11.9 Hyperparathyroidism E21.3 Hypercholesterolemia E78.00 Hypertension I10 Anemia due to chronic kidney disease N18.9; D63.1 DVT prophylaxis Z29.9
[2021-08-04] MEDS: PANTOprazole 40 MG in SYRINGE 0 ML IV SCH (11:40)
[2021-08-04] MEDS: METOCLOPRAMIDE HCL INJ 5 MG/ML 2 ML VIAL IV SCH ×2 (17:49→21:31)
[2021-08-04] MEDS: HEPARIN SOD 5,000 UNIT/0.5 ML VIAL SQ SCH ×3 (17:55→23:54)
[2021-08-05] MEDS: HEPARIN SOD 5,000 UNIT/0.5 ML VIAL SQ SCH ×3 (05:50→21:00)
[2021-08-05 06:12] LABS: Hematocrit (blood only) 35.4 % (42-52); Hemoglobin 11.3 g/dL (14.0-18.0); Mean Corpuscular Hemoglobin 28.4 pg (25-34); Mean Corpuscular Hgb Conc 31.9 g/dL (32-36); Mean Corpuscular Volume 88.9 fL (80-100); Mean Platelet Volume 9.2 fL (7.4-10.4); Platelet Count 212 K/uL (130-400); RDW Coefficient of Variation 16.5 % (11.5-14.5); RDW Standard Deviation 53.4 fL (36.4-46.3); Red Blood Count 3.98 M/uL (4.7-6.1); White Blood Count 10.66 K/uL (4.8-10.8)
[2021-08-05] MEDS: DEXTROMETHORPHAN POLYMR COMPLX 30 MG/5 ML UDP PO PRN ×2 (06:15→17:44)
[2021-08-05 07:06] LABS: BUN Creatinine Ratio 10.8 (10-20); Blood Urea Nitrogen 98 mg/dl (7-18); Calcium 10.1 mg/dl (8.5-10.1); Carbon Dioxide 26 mmol/L (21-32); Chloride 101 mmol/L (98-107); Est GFR (African American) 6.7 ml/min; Est GFR (Non-African American) 5.8 ml/min; Glucose 113 mg/dl (70-99); Sodium 136 mmol/L (136-145)
[2021-08-05] MEDS: CALCIUM CARBONATE 500 MG CHEWABLE TAB PO SCH ×3 (08:54→17:32)
[2021-08-05] MEDS: VELPHORO PO SCH ×3 (08:54→17:32)
[2021-08-05] MEDS: SEVELAMER HCL 800 MG TABLET PO SCH ×3 (08:54→17:33)
[2021-08-05] MEDS: ATORVASTATIN 40 MG TAB PO SCH (08:55)
[2021-08-05] MEDS: amLODIPine BESYLATE 5 MG TAB PO SCH (08:55)
[2021-08-05] MEDS: guaiFENesin 600 MG TABCR PO SCH ×2 (08:56→20:37)
[2021-08-05] MEDS: dexAMETHasone 6 MG in SYRINGE 0 ML IV SCH (08:56)
[2021-08-05] MEDS: METOPROLOL TARTRATE 25 MG TAB PO SCH ×2 (08:56→20:37)
[2021-08-05] MEDS: VITAMIN B COMPLEX TAB PO SCH (08:57)
[2021-08-05] MEDS: NEPHROCAPS PO SCH (08:57)
[2021-08-05] MEDS: ONDANSETRON INJ 2 MG/ML 2 ML VIAL IV PRN (08:57)
--- NOTE | 2021-08-05 09:06 | Nephrology Progress Note ---
Date of Service August 05, 2021 Assessment & Plan (1) ESRD (end stage renal disease) on dialysis: Plan: * HD yesterday complicated by hypotension * Patient is below his outpatient EDW of 98.5 kg * Will plan next HD for am and attempt UF * Patient reports AVF + bruit (2) History of kidney transplant: Plan: * Status 7 currently due to hospitalization and COVID (3) Pneumonia due to COVID-19 virus: Plan: * CXR this am reveals progressive pulmonary infiltrates c/w ARDS * Remains on 90%FiO2 at 40 L/min NC * Prognosis remains guarded Admission and Anticipated Discharge Date Admission Date: July 23, 2021 Subjective Mr. Levy remains on respiratory isolation due to COVID-19 pneumonia. I spoke with him by telephone this morning. He was dialyzed yesterday for only one hour. HD was complicated by hypotension. Only 900 cc UF obtained. This morning Mr. Levy reports worsening dyspnea on exertion Results & Data ([facility]) Vital Signs (Past 12 Hours) Vital Signs Temp Pulse Pulse Resp BP Pulse Ox 08/05/21 08:08 36.9 C 70 24 145/78 H 90 08/05/21 07:44 68 19 92 08/05/21 03:36 36.7 C 71 20 140/79 90 08/05/21 01:51 61 18 93 08/04/21 23:10 68 18 96 08/04/21 23:02 37.0 C 62 20 148/80 H 96 Laboratory Results Laboratory Tests 08/05/21 08/05/21 05:27 05:27 WBC 10.66 Hgb 11.3 L Hct 35.4 L Plt Count 212 Sodium 136 Potassium 5.0 Chloride 101 Carbon Dioxide 26 BUN 98 H Creatinine 9.02 H* D Glucose 113 H PG Care Time/CCT Total # of Minutes Spent Total Time Spent with Patient: Total time spent is greater than 50% in coordination of care (as documented) at patient's floor/unit and/or counseling patient: Coding Level of Care Code 91493 Subseq Hosp Care Lvl 3 Diagnoses ESRD (end stage renal disease) on dialysis N18.6; Z99.2 History of kidney transplant Z94.0 Pneumonia due to COVID-19 virus U07.1; J12.82
--- NOTE | 2021-08-05 09:08 | XRay Report ---
XR chest 1V portable HISTORY: Shortness of breath. Pneumonia. COMPARISON: Chest 07/31/2021. FINDINGS: Near complete opacification of the lungs which is similar to the prior study. This obscures the cardiac silhouette which appears mildly enlarged. No pleural effusions. No pneumothorax. IMPRESSION: No change in extensive bilateral airspace opacities consistent with a viral pneumonia. ACT 112: Negative or not required by law. Electronically signed by: Bc Shaikh M.D. 08/05/2021 9:07 AM
[2021-08-05] MEDS: INSULIN GLARGINE SOLOSTAR 100 UNITS/ML 3 ML PEN SC SCH (09:22)
[2021-08-05] MEDS: INSULIN ASPART 100 UNITS/ML 3 ML PEN SC SCH ×4 (09:24→20:26)
[2021-08-05] MEDS ORDERED: SODIUM CHLORIDE 0.65% NA SOLN 45 ML (OCEAN) NAE PRN (11:04)
[2021-08-05] MEDS: PANTOprazole 40 MG in SYRINGE 0 ML IV SCH (12:22)
--- NOTE | 2021-08-05 13:40 | Hospitalist Progress Note ---
Date of Service August 05, 2021 Assessment & Plan (1) Acute respiratory failure with hypoxia: Plan: due to severe COVID-19 pneumonia, developed into ARDS. Pulmonary edema likely contributing, difficult to remove fluid with HD initially improved oxygen requirements after 3 HD sessions last week today he is on 40L 70% (improved from yesterday), HD on 08/03 and 08/04 only produced ultrafiltration of 2500mL total no HD today, try tomorrow use Ativan 0.25mg IV q8 PRN for anxiety, helps a lot with breathing completed 7 days of cefepime/doxy Remains on Dexamethasone patient has stayed on high flow all week, minimal improvement in settings hopeful that he can gradually be weaned down over the next week with regular hemodialysis (2) Pneumonia due to 2019-nCoV: Plan: day #15 dexamethasone today - dose was increased from 6 to 10mg on 07/25/21 to cover for possibility of developing ARDS. continued 10mg until 08/04, decreased to 6mg 08/05, would taper off this week not a candidate for Remdesivir treatment crp and procal were both high - finished 7 days of Cefepime/Doxy flutter valve, IS, etc supportive care. unfortunately cannot prone - he attempted w/o succcess. not a candidate for Toci or Baricitinib CRP down to 11 on 07/30 breathing is okay when he is sleeping, resting, gets really bad with anxiety attacks but gets relief with Ativan guarded prognosis, hope to decrease oxygen requirements this next week (3) Sinus bradycardia: Plan: dropped to 40's on morning of 07/30 EKG showed sinus rhythm, no block responded to Atropine 0.5mg IV push, no further doses needed Atropine is at the bedside PRN metoprolol was on hold for two days, resumed at 25mg BID on 08/01, HR in 60-70's back to PCU status on 07/31 (4) Hypotension: Plan: occurred on 07/30, now resolved, actually hypertensive (5) ESRD (end stage renal disease) on dialysis: Plan: [facility] nephrology typical HD schedule of M/W/F only 1600mL UF on 08/03 and 900mL UF on 08/04 no HD today due to having no nurse available try for HD tomorrow (6) Anxiety: Plan: driving work of breathing and desaturation episodes triggered by dry heaves, then he feels like he cannot breathe, RR goes up to high 40's good response to Ativan 0.25mg IV q8 PRN he says he needs something when the anxiety gets really bad (7) Acute respiratory distress syndrome (ARDS) due to 2019 novel coronavirus: Plan: see above dexamethasone, try to keep euvolemic to dry with HD Ativan for anxiety unfortunately he cannot lay prone slight improvement today, down to 70%, stay on 40L (8) Nausea: Plan: dry heaves, triggers desaturation episodes not much relief with Zofran good response to Reglan, no longer has nausea, stop Reglan (9) Diabetes mellitus type 2 in nonobese: Plan: controlled at this time novolog SSI lantus 8 units daily monitor for hypoglycemia (10) Hyperparathyroidism: Plan: Secondary to ESRD Continue VELPHORO (11) Hypercholesterolemia: Plan: Continue atorvastatin LFTs nl this admission (12) Hypertension: Plan: resumed Norvasc 5mg daily resume metoprolol 25mg BID Hydralazine PRN (13) Anemia due to chronic kidney disease: Plan: stable (14) DVT prophylaxis: Plan: heparin TID recent CTA chest neg for PE Plan: HD tomorrow slowly wean oxygen as tolerated guarded prognosis, he is very fatigued, not tolerating dialysis very well Admission and Anticipated Discharge Date Admission Date: July 23, 2021 Subjective patient having a good day, down to 70% FiO2 moves the canula from his nose to mouth as needed, saturations 94% when sleeping no HD today, plan for HD tomorrow K is 5.0, Cr 9, WBC 10k, Hb 11.3 Review of Systems Review of Systems: All systems reviewed & are unremarkable except as noted in Subjective Constitutional: + fatigue and + weakness Respiratory: + dyspnea; no cough Gastrointestinal: no abdominal pain, no nausea, no vomiting, no constipation and no diarrhea/loose stools Physical Exam Physical Exam: General: well developed, well nourished, obese male, comfortable, no distress Neck: supple, trachea midline, normal thyroid Lungs: clear to auscultation bilaterally, tachypneic, belly breathing, no distress today Heart: regular rate, S1 and S2, no murmur, peripheral pulses normal, capillary refill normal, no edema, LUE fistula with thrill and bruit Abdomen: soft, NT, distended, + BS, no hepatomegaly, normal to percussion Extremities: normal in appearance, no cyanosis, no petechiae, + generalized weakness Neuro: awake, cooperative, moves all extremities, no focal motor deficits, CN II-XII intact, sensation in extremities intact, normal speech Skin: warm, dry, no rash, normal turgor Psych: Awake, alert oriented x 3, calm today Results & Data Results & Data ([facility]) Vital Signs (Past 12 Hours) Vital Signs Temp Pulse Pulse Pulse Resp BP Pulse Ox 08/05/21 12:34 60 24 133/88 86 L 08/05/21 11:31 90 08/05/21 10:42 66 21 89 L 08/05/21 09:33 66 08/05/21 08:08 36.9 C 70 24 145/78 H 90 08/05/21 07:44 68 19 92 08/05/21 03:36 36.7 C 71 20 140/79 90 08/05/21 01:51 61 18 93 Laboratory Results Laboratory Results - last 24 hr 08/04/21 08/04/21 08/05/21 16:44 20:09 05:27 WBC 10.66 RBC 3.98 L Hgb 11.3 L Hct 35.4 L MCV 88.9 MCH 28.4 MCHC 31.9 L RDW Std Deviation 53.4 H RDW Coeff of Lisseth 16.5 H Plt Count 212 MPV 9.2 Sodium Potassium Chloride Carbon Dioxide Anion Gap BUN Creatinine Est Cr Clr Drug Dosing Est GFR ( Amer) Est GFR (Non-Af Amer) BUN/Creatinine Ratio Glucose POC Glucose 203 H 127 H Calcium 08/05/21 08/05/21 08/05/21 05:27 08:01 12:00 WBC RBC Hgb Hct MCV MCH MCHC RDW Std Deviation RDW Coeff of Lisseth Plt Count MPV Sodium 136 Potassium 5.0 Chloride 101 Carbon Dioxide 26 Anion Gap 9.0 BUN 98 H Creatinine 9.02 H* D Est Cr Clr Drug Dosing Not Reportable Est GFR ( Amer) 6.7 Est GFR (Non-Af Amer) 5.8 BUN/Creatinine Ratio 10.8 Glucose 113 H POC Glucose 79 150 H Calcium 10.1 Medications Administered Current Inpatient Medications Amlodipine Besylate (Amlodipine Besylate 5 Mg Tab) 5 mg PO QAM RUSSELL Stop: 08/21/21 08:59 Last Admin: 08/05/21 08:55 Dose: 5 mg Documented by: Atorvastatin Calcium (Atorvastatin 40 Mg Tab) 40 mg PO QAM RUSSELL Stop: 08/21/21 08:59 Last Admin: 08/05/21 08:55 Dose: 40 mg Documented by: Atropine Sulfate (Atropine Sulfate 0.1 Mg/Ml 10ml Syr) 0.5 mg IV .for use during dialysis PRN PRN Reason: HR < 60 with symptoms Stop: 08/30/21 08:11 Benzonatate (Benzonatate 100 Mg Capsule) 200 mg PO Q8H PRN PRN Reason: Cough Stop: 08/24/21 07:01 Last Admin: 08/02/21 22:23 Dose: 200 mg Documented by: Calcium Carbonate (Calcium Carbonate 500 Mg Chewable Tab) 500 mg PO TIDM [facility] Stop: 08/22/21 16:59 Last Admin: 08/05/21 12:25 Dose: Not Given Documented by: Dextromethorphan Polymer Complex (Dextromethorphan Polymr Complx 30 Mg/5 Ml Udp) 30 mg PO Q6H PRN PRN Reason: Cough Stop: 08/20/21 21:52 Last Admin: 08/05/21 06:15 Dose: 30 mg Documented by: Dextrose (Dextrose 50% 50 Ml Syringe) 25 - 50 ml IV UD PRN; Protocol PRN Reason: Hypoglycemia Protocol Stop: 08/21/21 14:44 Glucagon (Glucagon For Inj 1 Mg Vial) 1 mg IM UD PRN; Protocol PRN Reason: Hypoglycemia Protocol Stop: 08/21/21 14:44 Glucose (Glucose 40% Gel 15 Gm Tube) 15 - 30 gm PO UD PRN; Protocol PRN Reason: Hypoglycemia Protocol Stop: 08/21/21 14:44 Glucose (Glucose 10 Tabs/Tube) 4 - 8 tabs PO UD PRN; Protocol PRN Reason: Hypoglycemia Protocol Stop: 08/21/21 14:44 Guaifenesin (Guaifenesin 600 Mg Tabcr) 1,200 mg PO Q12 RUSSELL Stop: 08/20/21 21:54 Last Admin: 08/05/21 08:56 Dose: 1,200 mg Documented by: Heparin Sodium (Porcine) (Heparin Sod 5,000 Unit/0.5 Ml Vial) 5,000 units SQ Q8 RUSSELL Stop: 08/21/21 21:59 Last Admin: 08/05/21 05:50 Dose: 5,000 units Documented by: Heparin Sodium (Porcine) (Heparin Sod (Porcine) 1000 Unit/Ml) 2,000 units IV ONE ONE Stop: 08/06/21 07:01 Heparin Sodium (Porcine) (Heparin Sod (Porcine) 1000 Unit/Ml) 500 units IV Q1H [facility] Stop: 08/06/21 07:01 Hydralazine HCl (Hydralazine Hcl 20 Mg/Ml Vial) 10 mg IV Q6 PRN PRN Reason: Blood Pressure - High Stop: 08/29/21 14:06 Last Admin: 08/01/21 07:54 Dose: 10 mg Documented by: Lorazepam (Ativan) 0.25 mg in 0.5 mls @ 0.5 mls/min IV Q8H PRN PRN Reason: Anxiety Stop: 08/31/21 09:43 Last Admin: 08/01/21 13:06 Dose: 0.5 mls/min Documented by: Dexamethasone 6 mg/ Syringe 1.5 mls @ 1 mls/min IV QAM [facility] Stop: 09/04/21 08:59 Last Admin: 08/05/21 08:56 Dose: 1 mls/min Documented by: Sodium Chloride (Nss 1000ml) 1,000 mls @ 0 mls/hr IV .Q0M PRN PRN Reason: For Hemodialysis Use ONLY Stop: 08/06/21 12:59 Insulin Aspart (Insulin Aspart 100 Units/Ml 3 Ml Pen) 0 units SC ACHS [facility] Stop: 08/21/21 16:29 Last Admin: 08/05/21 12:27 Dose: 4 units Documented by: Insulin Glargine (Insulin Glargine Solostar 100 Units/Ml 3 Ml Pen) 8 units SC QAM [facility] Stop: 08/26/21 09:44 Last Admin: 08/05/21 09:22 Dose: 8 units Documented by: Metoprolol Tartrate (Metoprolol Tartrate 25 Mg Tab) 25 mg PO BID [facility] Stop: 08/31/21 20:59 Last Admin: 08/05/21 08:56 Dose: 25 mg Documented by: Miscellaneous (Carbohydrates For Hypoglycemia ) 15 - 30 gm PO UD PRN PRN Reason: Hypoglycemia Treatment Stop: 08/21/21 14:44 Velphoro ~ Non- Formulary Patient's Own Med 2 ea PO TIDM [facility] Stop: 09/01/21 11:59 Last Admin: 08/05/21 12:25 Dose: 2 tabs Documented by: Ondansetron HCl (Ondansetron Inj 2 Mg/Ml 2 Ml Vial) 4 mg IV Q6H PRN PRN Reason: Nausea And Vomiting Stop: 08/24/21 14:10 Last Admin: 08/05/21 08:57 Dose: 4 mg Documented by: Pantoprazole Sodium (Pantoprazole 40 Mg Tab) 40 mg PO QAM [facility] Stop: 09/04/21 12:29 Sevelamer HCl (Sevelamer Hcl 800 Mg Tablet) 800 mg PO TIDM [facility] Stop: 08/31/21 11:59 Last Admin: 08/05/21 12:26 Dose: 800 mg Documented by: Sodium Chloride (Sodium Chloride 0.65% Na Soln 45 Ml ([place])) 1 sprays GABO QID PRN PRN Reason: Dryness Stop: 09/04/21 11:03 Sodium Polystyrene Sulfonate (Sodium Polystyrene Sulfonate 15g/60ml Susp) 15 gm PO SuTuThSa [facility] Stop: 08/21/21 08:59 Last Admin: 07/28/21 08:14 Dose: 15 gm Documented by: Vitamin B Complex (Vitamin B Complex Tab) [facility] Stop: 08/21/21 08:59 Last Admin: 08/05/21 08:57 Dose: 1 tab Documented by: Vitamin B Complex/Folic Acid (Nephrocaps) 1 cap PO [facility] Stop: 08/23/21 08:59 Last Admin: 08/05/21 08:57 Dose: 1 cap Documented by: PG Care Time/CCT Total # of Minutes Spent Total Time Spent with Patient: Total time spent is greater than 50% in coordination of care (as documented) at patient's floor/unit and/or counseling patient: Coding Level of Care Code 89861 Subseq Hosp Care Lvl 3 Diagnoses Acute respiratory failure with hypoxia J96.01 Pneumonia due to 2019-nCoV U07.1; J12.82 Sinus bradycardia R00.1 Hypotension I95.9 ESRD (end stage renal disease) on dialysis N18.6; Z99.2 Anxiety F41.9 Acute respiratory distress syndrome (ARDS) due to 2019 novel coronavirus U07.1; J80 Nausea R11.0 Diabetes mellitus type 2 in nonobese E11.9 Hyperparathyroidism E21.3 Hypercholesterolemia E78.00 Hypertension I10 Anemia due to chronic kidney disease N18.9; D63.1 DVT prophylaxis Z29.9
[2021-08-05] MEDS: PANTOprazole 40 MG TAB PO SCH (14:02)
[2021-08-06] MEDS: ONDANSETRON INJ 2 MG/ML 2 ML VIAL IV PRN ×2 (06:06→12:50)
[2021-08-06 06:22] LABS: Hematocrit (blood only) 34.5 % (42-52); Hemoglobin 11.1 g/dL (14.0-18.0); Mean Corpuscular Hemoglobin 28.2 pg (25-34); Mean Corpuscular Hgb Conc 32.2 g/dL (32-36); Mean Corpuscular Volume 87.6 fL (80-100); Mean Platelet Volume 9.3 fL (7.4-10.4); Platelet Count 195 K/uL (130-400); RDW Coefficient of Variation 16.1 % (11.5-14.5); RDW Standard Deviation 51.9 fL (36.4-46.3); Red Blood Count 3.94 M/uL (4.7-6.1); White Blood Count 11.09 K/uL (4.8-10.8)
[2021-08-06] MEDS: HEPARIN SOD 5,000 UNIT/0.5 ML VIAL SQ SCH ×3 (06:54→20:46)
[2021-08-06] MEDS ORDERED: SODIUM CHLORIDE 0.9% 1000ML 1,000 ML IV PRN (07:00)
[2021-08-06] MEDS ORDERED: HEPARIN SOD (PORCINE) 1000 UNIT/ML IV SCH (07:00)
[2021-08-06] MEDS ORDERED: HEPARIN SOD (PORCINE) 1000 UNIT/ML IV ONE (07:00)
[2021-08-06 07:11] LABS: BUN Creatinine Ratio 11.8 (10-20); Blood Urea Nitrogen 136 mg/dl (7-18); Calcium 10.3 mg/dl (8.5-10.1); Carbon Dioxide 19 mmol/L (21-32); Chloride 99 mmol/L (98-107); Est GFR (Non-African American) 4.3 ml/min; Glucose 78 mg/dl (70-99); Potassium 5.7 mmol/L (3.5-5.1); Sodium 134 mmol/L (136-145)
[2021-08-06] MEDS: VELPHORO PO SCH ×3 (07:37→16:35)
[2021-08-06] MEDS: SEVELAMER HCL 800 MG TABLET PO SCH ×3 (07:37→16:34)
[2021-08-06] MEDS: CALCIUM CARBONATE 500 MG CHEWABLE TAB PO SCH ×3 (07:37→16:31)
--- NOTE | 2021-08-06 08:34 | Hospitalist Progress Note ---
Date of Service August 06, 2021 Assessment & Plan (1) Acute respiratory failure with hypoxia: Plan: due to severe COVID-19 pneumonia, developed into ARDS. Pulmonary edema likely contributing, difficult to remove fluid with HD initially improved oxygen requirements after 3 HD sessions last week Remains on Vapotherm with high oxygen requirements did have hypotension during treatment making less fluid extraction on 08/04/2021 attempt dialysis today 08/06/2021 May need midodrine with treatment use Ativan 0.25mg IV q8 PRN for anxiety, helps a lot with breathing completed 7 days of cefepime/doxy Remains on Dexamethasone 6 mg Patient has been persistent with his oxygen need over the last 1 week. (2) Pneumonia due to 2019-nCoV: Plan: Patient's been on dexamethasone since admission he had gone from 6 to 10 mg but now back to 6. Unclear its treatment at this point time as his oxygen requirements have been stubborn not a candidate for Remdesivir treatment crp and procal were both high - finished 7 days of Cefepime/Doxy flutter valve, IS, etc supportive care. unfortunately cannot prone - he attempted w/o succcess. Did not meet criteria for baricitinib CRP down to 11 on 07/30 breathing is okay when he is sleeping, resting, gets really bad with anxiety attacks but gets relief with Ativan Stubbornly persistent high oxygen requirements (3) Sinus bradycardia: Plan: dropped to 40's on morning of 07/30 EKG showed sinus rhythm, no block responded to Atropine 0.5mg IV push, no further doses needed Atropine is at the bedside PRN metoprolol was on hold for two days, resumed at 25mg BID on 08/01, HR in 60-70's back to PCU status on 07/31 (4) Hypotension: Plan: occurred on 07/30, now resolved, actually hypertensive (5) ESRD (end stage renal disease) on dialysis: Plan: [facility] [place] nephrology typical HD schedule of M// only 1600mL UF on 08/03 and 900mL UF on 08/04 no HD today due to having no nurse available try for HD tomorrow (6) Anxiety: Plan: Seems to have panic attacks which negatively affect his respiratory state and status he says he needs something when the anxiety gets really bad typically remedied with Ativan. (7) Acute respiratory distress syndrome (ARDS) due to 2019 novel coronavirus: Plan: see above dexamethasone, try to keep euvolemic to dry with HD Ativan for anxiety unfortunately he cannot lay prone (8) Nausea: Plan: dry heaves, triggers desaturation episodes not much relief with Zofran good response to Reglan, (9) Diabetes mellitus type 2 in nonobese: Plan: controlled at this time novolog SSI lantus 8 units daily monitor for hypoglycemia (10) Hyperparathyroidism: Plan: Secondary to ESRD Continue VELPHORO (11) Hypercholesterolemia: Plan: Continue atorvastatin LFTs nl this admission (12) Hypertension: Plan: Will hold amlodipine to try to facilitate dialysis or may reduce the dose of metoprolol currently at BID Hydralazine PRN (13) Anemia due to chronic kidney disease: Plan: stable (14) DVT prophylaxis: Plan: heparin TID recent CTA chest neg for PE Plan: Admission and Anticipated Discharge Date Admission Date: July 23, 2021 Subjective Patient seems comfortable although continues to be on high flow nasal cannula 50 to 60 L 90% saturations are stable. Some concern that his predialysis day may precipitate some respiratory distress due to pulmonary edema from renal failure. Hopeful recommended dialysis today. He has no other complaints or problems at this time other than feeling some constipation requesting a stool softener Review of Systems Review of Systems: Moderate distress and fatigue no headache, no visual changes no speech or swallowing issues no chest pain, pressure or palpitations Persist shortness of breath, nonproductive cough or wheezes no abdominal pain, nausea or vomiting, diarrhea or constipation no dysuria, hematuria or frequency no focal joint pain mild peripheral edema to his lower extremities no back pain, CVA tenderness or radicular pain Changes of chronic venous stasis to his lower extremities no focal signs of weakness or numbness or altered sensation no complaints of anxiety or depression.. Physical Exam Physical Exam: The patient appeared chronically ill but no significant distress Vital signs as documented. Head exam is normocephalic atraumatic Neck is with 1 to 2 cm JVD, thyromegaly, or carotid bruits. Lungs decreased air movement bibasilar rales Cardiac exam, Rhythm is regular.. No murmurs, rubs or gallops. Abdominal exam reveals normal bowel sounds, soft non tender, no masses Extremities 1+ bilateral edema to the lower extremities and both pedal pulses are present Neurologic exam is alert and oriented, no focal loss of strength or sensation Skin is with lower extremity changes are chronic venous stasis Psychologically is without concerns for anxiety or depression Results & Data Results & Data ([facility]) Vital Signs (Past 12 Hours) Vital Signs Temp Pulse Pulse Pulse Pulse Resp BP 08/06/21 07:06 75 24 08/06/21 06:37 97.5 F L 72 18 08/06/21 03:53 98.1 F 64 15 144/85 H 08/06/21 02:10 60 24 08/06/21 00:00 77 08/05/21 23:20 98.6 F 68 24 156/86 H 08/05/21 23:19 75 24 BP Pulse Ox 08/06/21 07:06 91 08/06/21 06:37 148/70 H 90 08/06/21 03:53 90 08/06/21 02:10 91 08/06/21 00:00 08/05/21 23:20 90 08/05/21 23:19 91 PG Care Time/CCT Total # of Minutes Spent Total Time Spent with Patient: Total time spent is greater than 50% in coordination of care (as documented) at patient's floor/unit and/or counseling patient: Coding Level of Care Code 27647 Subseq Hosp Care Lvl 3 Diagnoses Acute respiratory failure with hypoxia J96.01 Pneumonia due to 2019-nCoV U07.1; J12.82 Sinus bradycardia R00.1 Hypotension I95.9 ESRD (end stage renal disease) on dialysis N18.6; Z99.2 Anxiety F41.9 Acute respiratory distress syndrome (ARDS) due to 2019 novel coronavirus U07.1; J80 Nausea R11.0 Diabetes mellitus type 2 in nonobese E11.9 Hyperparathyroidism E21.3 Hypercholesterolemia E78.00 Hypertension I10 Anemia due to chronic kidney disease N18.9; D63.1 DVT prophylaxis Z29.9
[2021-08-06] MEDS: ATORVASTATIN 40 MG TAB PO SCH (08:35)
[2021-08-06] MEDS: amLODIPine BESYLATE 5 MG TAB PO SCH (08:35)
[2021-08-06] MEDS: dexAMETHasone 6 MG in SYRINGE 0 ML IV SCH (08:36)
[2021-08-06] MEDS: guaiFENesin 600 MG TABCR PO SCH ×2 (08:36→20:44)
[2021-08-06] MEDS: METOPROLOL TARTRATE 25 MG TAB PO SCH ×2 (08:37→20:45)
[2021-08-06] MEDS: NEPHROCAPS PO SCH (08:37)
[2021-08-06] MEDS: VITAMIN B COMPLEX TAB PO SCH (08:37)
[2021-08-06] MEDS: PANTOprazole 40 MG TAB PO SCH (08:37)
[2021-08-06] MEDS: INSULIN ASPART 100 UNITS/ML 3 ML PEN SC SCH ×4 (08:41→20:45)
[2021-08-06] MEDS: INSULIN GLARGINE SOLOSTAR 100 UNITS/ML 3 ML PEN SC SCH (08:41)
--- NOTE | 2021-08-06 09:06 | Nephrology Progress Note ---
Date of Service August 06, 2021 Assessment & Plan (1) ESRD (end stage renal disease) on dialysis: Plan: * HD today for correction of hyperkalemia and azotemia. Will attempt 2L UF. HD orders placed in EMR and HD RN notified * Patient is below his outpatient EDW of 98.5 kg * Patient reports AVF + bruit (2) History of kidney transplant: Plan: * Status 7 currently due to hospitalization and COVID (3) Pneumonia due to COVID-19 virus: Plan: * CXR 08/05 revealed progressive pulmonary infiltrates c/w ARDS * Remains on 90%FiO2 at 60 L/min NC * Prognosis remains guarded Admission and Anticipated Discharge Date Admission Date: July 23, 2021 Subjective Mr. Levy remains on respiratory isolation due to COVID-19 pneumonia. I spoke with him by telephone this morning. Mr. Levy reports that his dyspnea is s table. He remains on 90% FiO2 at 60L/min. Review of Systems Constitutional: + weakness Eyes: no worsening vision and no problem reported Ear, Nose, Mouth, Throat: no problem reported Respiratory: + dyspnea Cardiovascular: no chest pain and no palpitations Gastrointestinal: no abdominal pain Neurologic: no confusion Results & Data ([facility]) Vital Signs (Past 12 Hours) Vital Signs Temp Pulse Pulse Pulse Pulse Resp BP 08/06/21 07:06 75 24 08/06/21 06:37 36.4 C L 72 18 08/06/21 03:53 36.7 C 64 15 144/85 H 08/06/21 02:10 60 24 08/06/21 00:00 77 08/05/21 23:20 37.0 C 68 24 156/86 H 08/05/21 23:19 75 24 BP Pulse Ox 08/06/21 07:06 91 08/06/21 06:37 148/70 H 90 08/06/21 03:53 90 08/06/21 02:10 91 08/06/21 00:00 08/05/21 23:20 90 08/05/21 23:19 91 Laboratory Results Laboratory Tests 08/06/21 08/06/21 05:53 05:53 WBC 11.09 H Hgb 11.1 L Hct 34.5 L Plt Count 195 Sodium 134 L Potassium 5.7 H Chloride 99 Carbon Dioxide 19 L BUN 136 H Creatinine 11.50 H* D Glucose 78 PG Care Time/CCT Total # of Minutes Spent Total Time Spent with Patient: Total time spent is greater than 50% in coordination of care (as documented) at patient's floor/unit and/or counseling patient: Coding Level of Care Code 82901 Subseq Hosp Care Lvl 3 Diagnoses ESRD (end stage renal disease) on dialysis N18.6; Z99.2 History of kidney transplant Z94.0 Pneumonia due to COVID-19 virus U07.1; J12.82
[2021-08-06] MEDS: PROMETHAZINE HCL 12.5 MG in SODIUM CHLORIDE 0.9% 50 ML IV PRN (17:01)
[2021-08-06] MEDS: DOCUSATE SODIUM 100 MG CAP PO SCH (20:45)
[2021-08-06] MEDS: DEXTROMETHORPHAN POLYMR COMPLX 30 MG/5 ML UDP PO PRN (20:54)
[2021-08-07 06:20] LABS: Hematocrit (blood only) 31.8 % (42-52); Hemoglobin 10.2 g/dL (14.0-18.0); Mean Corpuscular Hemoglobin 28.2 pg (25-34); Mean Corpuscular Hgb Conc 32.1 g/dL (32-36); Mean Corpuscular Volume 87.8 fL (80-100); Mean Platelet Volume 9.2 fL (7.4-10.4); Platelet Count 175 K/uL (130-400); RDW Coefficient of Variation 16.3 % (11.5-14.5); RDW Standard Deviation 52.2 fL (36.4-46.3); Red Blood Count 3.62 M/uL (4.7-6.1); White Blood Count 9.63 K/uL (4.8-10.8)
--- NOTE | 2021-08-07 06:52 | Hospitalist Progress Note ---
Date of Service August 07, 2021 Assessment & Plan (1) Acute respiratory failure with hypoxia: Plan: due to severe COVID-19 pneumonia, developed into ARDS. Pulmonary edema likely contributing, difficult to remove fluid with HD initially improved oxygen requirements after 3 HD sessions last week Remains on Vapotherm with high oxygen requirements, poor progression did have hypotension during treatment making less fluid extraction on 08/04/2021 attempt dialysis today 08/06/2021 May need midodrine with treatment use Ativan 0.25mg IV q8 PRN for anxiety, helps a lot with breathing completed 7 days of cefepime/doxy Remains on Dexamethasone 6 mg Patient has been persistent with his oxygen need over the last 1 week. (2) Pneumonia due to 2019-nCoV: Plan: Patient's been on dexamethasone since admission he had gone from 6 to 10 mg but now back to 6. Unclear its treatment at this point time as his oxygen requirements have been stubborn not a candidate for Remdesivir treatment crp and procal were both high - finished 7 days of Cefepime/Doxy flutter valve, IS, etc supportive care. unfortunately cannot prone - he attempted w/o succcess. Did not meet criteria for baricitinib CRP down to 11 on 07/30 breathing is okay when he is sleeping, resting, gets really bad with anxiety attacks but gets relief with Ativan Stubbornly persistent high oxygen requirements (3) Sinus bradycardia: Plan: dropped to 40's on morning of 07/30 EKG showed sinus rhythm, no block responded to Atropine 0.5mg IV push, no further doses needed Atropine is at the bedside PRN metoprolol was on hold for two days, resumed at 25mg BID on 08/01, HR in 60-70's back to PCU status on 07/31 (4) Hypotension: Plan: occurred on 07/30, now resolved, actually hypertensive (5) ESRD (end stage renal disease) on dialysis: Plan: [facility] [place] [facility] typical HD schedule of // only 1600mL UF on 08/03 and 900mL UF on 08/04 no HD today due to having no nurse available try for HD tomorrow (6) Anxiety: Plan: Seems to have panic attacks which negatively affect his respiratory state and status he says he needs something when the anxiety gets really bad typically remedied with Ativan. (7) Acute respiratory distress syndrome (ARDS) due to 2019 novel coronavirus: Plan: see above dexamethasone, try to keep euvolemic to dry with HD Ativan for anxiety unfortunately he cannot lay prone (8) Nausea: Plan: dry heaves, triggers desaturation episodes not much relief with Zofran good response to Reglan, (9) Diabetes mellitus type 2 in nonobese: Plan: controlled at this time novolog SSI lantus 8 units daily monitor for hypoglycemia (10) Hyperparathyroidism: Plan: Secondary to ESRD Continue VELPHORO (11) Hypercholesterolemia: Plan: Continue atorvastatin LFTs nl this admission (12) Hypertension: Plan: Will hold amlodipine to try to facilitate dialysis or may reduce the dose of metoprolol currently at BID Hydralazine PRN (13) Anemia due to chronic kidney disease: Plan: stable (14) DVT prophylaxis: Plan: heparin TID recent CTA chest neg for PE Plan: Admission and Anticipated Discharge Date Admission Date: July 23, 2021 Subjective this pt is having some nausea,. still with high oxygen requirements, will attempt to have dialysis on 08/08 Review of Systems Review of Systems: Moderate respiratory distress and fatigue no headache, no visual changes no speech or swallowing issues No chest pain or pressure Persistent shortness of breath, cough or wheezes no abdominal pain, does have some pervasive nausea without vomiting no urine output as is dialysis no focal joint pain or swelling no back pain, CVA tenderness or radicular pain no bruising, bleeding or rashes no focal signs of weakness or numbness or altered sensation pt is anxious Physical Exam Physical Exam: The patient appeared chronically ill and weak and Vital signs as documented. Head exam is normocephalic atraumatic Neck is without JVD, thyromegaly, or carotid bruits. Lungs are diminished to the bases minor rales just above Cardiac exam, Rhythm is regular.. Systolic murmur Abdominal exam reveals normal bowel sounds, soft non tender, no masses Extremities are mildy edematous and AV fistula has thrill and left arm Neurologic exam is alert and oriented, no focal loss of strength or sensation Skin is without bruises or rashes Psychologically is with concern for anxiety Results & Data Results & Data ([facility]) Vital Signs (Past 12 Hours) Vital Signs Temp Pulse Pulse Pulse Pulse Resp BP 08/07/21 06:45 91 H 18 08/07/21 04:38 72 20 08/07/21 03:39 97.5 F L 80 24 144/77 H 08/06/21 23:57 75 08/06/21 23:09 81 21 08/06/21 23:03 97.5 F L 74 22 135/80 08/06/21 19:15 97.7 F 71 18 132/72 Pulse Ox 08/07/21 06:45 88 L 08/07/21 04:38 93 08/07/21 03:39 91 08/06/21 23:57 08/06/21 23:09 94 08/06/21 23:03 98 08/06/21 19:15 97 PG Care Time/CCT Total # of Minutes Spent Total Time Spent with Patient: Total time spent is greater than 50% in coordination of care (as documented) at patient's floor/unit and/or counseling patient: Coding Level of Care Code 11583 Subseq Hosp Care Lvl 2 Diagnoses Acute respiratory failure with hypoxia J96.01 Pneumonia due to 2019-nCoV U07.1; J12.82 Sinus bradycardia R00.1 Hypotension I95.9 ESRD (end stage renal disease) on dialysis N18.6; Z99.2 Anxiety F41.9 Acute respiratory distress syndrome (ARDS) due to 2019 novel coronavirus U07.1; J80 Nausea R11.0 Diabetes mellitus type 2 in nonobese E11.9 Hyperparathyroidism E21.3 Hypercholesterolemia E78.00 Hypertension I10 Anemia due to chronic kidney disease N18.9; D63.1 DVT prophylaxis Z29.9
[2021-08-07 07:33] LABS: BUN Creatinine Ratio 9.9 (10-20); Blood Urea Nitrogen 88 mg/dl (7-18); Carbon Dioxide 21 mmol/L (21-32); Chloride 102 mmol/L (98-107); Est GFR (African American) 6.9 ml/min; Est GFR (Non-African American) 5.9 ml/min; Glucose 74 mg/dl (70-99); Potassium 5.3 mmol/L (3.5-5.1); Sodium 136 mmol/L (136-145)
[2021-08-07] MEDS: INSULIN ASPART 100 UNITS/ML 3 ML PEN SC SCH ×4 (08:46→20:25)
[2021-08-07] MEDS: HEPARIN SOD 5,000 UNIT/0.5 ML VIAL SQ SCH ×3 (08:46→20:24)
--- NOTE | 2021-08-07 08:58 | Nephrology Progress Note ---
Date of Service August 07, 2021 Assessment & Plan (1) ESRD (end stage renal disease) on dialysis: Plan: * HD scheduled for tomorrow in order to correct hyperkalemia and azotemia. Will adjust EDW to 88kg and adjust UF accordingly. HD orders placed in EMR and HD RN notified * Patient reports AVF + bruit (2) History of kidney transplant: Plan: * Status 7 currently due to hospitalization and COVID (3) Pneumonia due to COVID-19 virus: Plan: * CXR 08/05 revealed progressive pulmonary infiltrates c/w ARDS * Remains on 80%FiO2 at 50 L/min NC * Prognosis remains guarded Admission and Anticipated Discharge Date Admission Date: July 23, 2021 Subjective Mr. Levy remains on respiratory isolation due to COVID-19 pneumonia. I spoke with him by telephone this morning. Mr. Levy reports that his dyspnea is stable. He remains on 80% FiO2 at 50L/min. SaO2 has been 88 - 95%. Dialysis was performed yesterday. 1L UF obtained. HD stopped after 2.5 hours due to hypotension. Review of Systems Constitutional: + weakness Eyes: no worsening vision and no problem reported Ear, Nose, Mouth, Throat: no problem reported Respiratory: + dyspnea Cardiovascular: no chest pain and no palpitations Gastrointestinal: no abdominal pain Neurologic: no confusion Results & Data ([facility]) Vital Signs (Past 12 Hours) Vital Signs Temp Pulse Pulse Pulse Pulse Resp BP 08/07/21 07:54 36.6 C 86 22 133/84 08/07/21 06:45 91 H 18 08/07/21 04:38 72 20 08/07/21 03:39 36.4 C L 80 24 144/77 H 08/06/21 23:57 75 08/06/21 23:09 81 21 08/06/21 23:03 36.4 C L 74 22 135/80 Pulse Ox 08/07/21 07:54 95 08/07/21 06:45 88 L 08/07/21 04:38 93 08/07/21 03:39 91 08/06/21 23:57 08/06/21 23:09 94 08/06/21 23:03 98 Laboratory Results Laboratory Tests 08/07/21 08/07/21 05:55 05:55 WBC 9.63 Hgb 10.2 L Hct 31.8 L Plt Count 175 Sodium 136 Potassium 5.3 H Chloride 102 Carbon Dioxide 21 BUN 88 H Creatinine 8.91 H* D Glucose 74 PG Care Time/CCT Total # of Minutes Spent Total Time Spent with Patient: Total time spent is greater than 50% in coordination of care (as documented) at patient's floor/unit and/or counseling patient: Coding Level of Care Code 65554 Subseq Hosp Care Lvl 3 Diagnoses ESRD (end stage renal disease) on dialysis N18.6; Z99.2 History of kidney transplant Z94.0 Pneumonia due to COVID-19 virus U07.1; J12.82
[2021-08-07] MEDS: PANTOprazole 40 MG TAB PO SCH (09:52)
[2021-08-07] MEDS: ONDANSETRON INJ 2 MG/ML 2 ML VIAL IV PRN (09:52)
[2021-08-07] MEDS: dexAMETHasone 6 MG in SYRINGE 0 ML IV SCH (09:52)
[2021-08-07] MEDS: ATORVASTATIN 40 MG TAB PO SCH (11:49)
[2021-08-07] MEDS: DOCUSATE SODIUM 100 MG CAP PO SCH ×2 (11:49→20:23)
[2021-08-07] MEDS: CALCIUM CARBONATE 500 MG CHEWABLE TAB PO SCH ×3 (11:49→17:48)
[2021-08-07] MEDS: VELPHORO PO SCH ×3 (11:49→17:49)
[2021-08-07] MEDS: SEVELAMER HCL 800 MG TABLET PO SCH ×3 (11:49→17:48)
[2021-08-07] MEDS: METOPROLOL TARTRATE 25 MG TAB PO SCH ×2 (11:49→20:23)
[2021-08-07] MEDS: guaiFENesin 600 MG TABCR PO SCH ×2 (11:49→20:22)
[2021-08-07] MEDS: INSULIN GLARGINE SOLOSTAR 100 UNITS/ML 3 ML PEN SC SCH (11:50)
[2021-08-07] MEDS: VITAMIN B COMPLEX TAB PO SCH (11:50)
[2021-08-07] MEDS: NEPHROCAPS PO SCH (11:50)
[2021-08-07] MEDS: PROMETHAZINE HCL 12.5 MG in SODIUM CHLORIDE 0.9% 50 ML IV PRN (13:00)
--- NOTE | 2021-08-07 15:39 | Palliative Care Progress Note ---
Date of Service August 07, 2021 Assessment & Plan (1) Palliative care encounter: Plan: I was able to see Marcos today. He has not tolerated much of an oxygen wean. Currently on FiO2 85% 60L. We discussed our previous encounters and he said very straight forward that he is going to walk out of here and has no reason to think otherwise. He stated that he is ready to tolerate hemodialysis tomorrow. We did discuss the idea of his poor kidney function and that sometimes our brain has one idea, but our body has other plans. He was clear he would want to be aggressive with his care. He said that he prefers not being intubated but will proceed if his respiratory drive declines. The patient has been wavering between denial and bargaining in the grief stages regarding the severity of his illness. He has been able to have phone conversations with his family which has brought him heri. I did reach out to his , Susana at [phone] and left a voicemail. Palliative will follow to continue to offer support to the family every few days. Please reach out if patient would decline further. (2) Hypoxia: Plan: Being treated for COVID-19 PNA. Patient was unvax. Currently on Hi-Flow 85% FiO2 and 60L. SpO2 ranges 87-89% during my encounter. (3) ESRD (end stage renal disease) on dialysis: Plan: Patient received a kidney transplant in 2007 and rejection in 2016 due to medication non-compliance. Pt tolerated HD today with 2.5 L removed. No ACLS meds required today with treatment. Patient creatinine today 8.51, down from 11.5. Admission and Anticipated Discharge Date Admission Date: July 23, 2021 Subjective Marcos remains on HiFlow 85% 60L. SpO2 88%. Patient able to hold conversation while speaking in full sentences. pt continues to prefer full code and aggressive measures. HD planned for 08/08 See A/P for further details Review of Systems Review of Systems: [place] System Assessment Scale: Pain 0/3 SOB: 3/3 Tiredness: 1/3 Nausea: 0/3 Palliative Performance Scale: 30% Physical Exam Constitutional: + acute distress, + ill appearing, cooperative and + in distress ENMT: Mouth: + dry oral mucous membranes Respiratory: + labored breathing, + cough and + tachypneic Auscultation: + rhonchi Cardiovascular: Rate/Rhythm: regular rate and regular rhythm Heart Sounds: normal S1 and normal S2 Extremities: normal capillary refill and + edema Gastrointestinal (Abdomen): Inspection/Auscultation: abdomen normal to inspection Skin: + pallor Psychiatric: Orientation: alert and oriented x 3 Insight: good insight Judgement: good judgement Results & Data ([facility]) Vital Signs (Past 12 Hours) Vital Signs Temp Pulse Pulse Pulse Pulse Resp BP 08/07/21 14:36 95 H 20 08/07/21 11:23 36.7 C 86 18 08/07/21 10:40 84 21 08/07/21 08:00 85 08/07/21 07:54 36.6 C 86 22 133/84 08/07/21 06:45 91 H 18 08/07/21 04:38 72 20 BP Pulse Ox 08/07/21 14:36 89 L 08/07/21 11:23 128/81 93 08/07/21 10:40 93 08/07/21 08:00 08/07/21 07:54 95 08/07/21 06:45 88 L 08/07/21 04:38 93 PG Care Time/CCT Total # of Minutes Spent Total Time Spent with Patient: Total time spent is greater than 50% in coordination of care (as documented) at patient's floor/unit and/or counseling patient: 45 minutes with > 50% of that time spent assessing the patient, discussing goals of care with patient and collaborating with IDT Coding Level of Care Code 58111 Subseq Hosp Care Lvl 3 Diagnoses Palliative care encounter Z51.5 Hypoxia R09.02 ESRD (end stage renal disease) on dialysis N18.6; Z99.2 Time Spent (min) 45
[2021-08-07] MEDS ORDERED: PSEUDOEPHEDRINE HCL 30 MG TAB PO PRN (23:54)
[2021-08-08] MEDS: LORazepam 0.25 MG/0.5 ML VIAL IV PRN (04:27)
[2021-08-08] MEDS ORDERED: MoRPHine SULFATE 2 MG/ML CARP IV STA (05:25)
[2021-08-08 06:00] LABS: Allen Test POS (Pos); Base Excess ABG -6.7 mEq/L (-9-1.8); HCO3 ABG 21 mmol/L (19-24); Oxygen Saturation ABG 91.8 % (90-95); PCO2 ABG 54 mmHg (35-46); PO2 ABG 70 mmHg (80-95); pH ABG 7.21 (7.35-7.45)
[2021-08-08] MEDS: HEPARIN SOD 5,000 UNIT/0.5 ML VIAL SQ SCH ×3 (06:33→21:03)
[2021-08-08] MEDS ORDERED: HEPARIN SOD (PORCINE) 1000 UNIT/ML IV ONE (07:00)
[2021-08-08] MEDS ORDERED: EPOETIN ALFA 4,000 UNIT/ML VIAL IV SCH (07:00)
[2021-08-08] MEDS ORDERED: SODIUM CHLORIDE 0.9% 1000ML 1,000 ML IV PRN (07:00)
--- NOTE | 2021-08-08 07:22 | XRay Report ---
XR chest 1V portable CLINICAL HISTORY: dyspnea. Shortness of breath and Covid positive COMPARISON STUDY: 08/05/2021 TECHNIQUE: 1 view of the chest FINDINGS: Single frontal view of the chest demonstrates the cardiomediastinal silhouette to be within normal li mits. Compared to the previous examination, there has been slight interval improvement of marked bila teral airspace opacities. The findings are again most characteristic of a marked viral type pneumonit is and Covid pneumonia. There is no evidence for pleural effusion. There is no evidence for vascular congestion. There is no acute osseous pathology. IMPRESSION: Slight interval improvement of marked bilateral airspace opacities characteristic of Covi d pneumonia. ACT 112: Negative or not required by law. Electronically signed by: Matthew Adams M.D. 08/08/2021 7:21 AM
[2021-08-08] MEDS ORDERED: FLUTICASONE PROPIONATE NA SPR 16 GM BTL SCH (09:00)
[2021-08-08] MEDS: dexAMETHasone 6 MG in SYRINGE 0 ML IV SCH (09:28)
[2021-08-08] MEDS: INSULIN ASPART 100 UNITS/ML 3 ML PEN SC SCH ×3 (09:35→18:35)
[2021-08-08] MEDS ORDERED: PROPOFOL IV EMULSION 10 MG/ML 100 ML VIAL IV ONE (10:22)
[2021-08-08] MEDS ORDERED: RAPID SEQUENCE INDUCTION BAG ONE (10:24)
[2021-08-08] MEDS ORDERED: NOREPINEPHRINE/D5W 8 MG/508 ML IV ONE (10:31)
--- NOTE | 2021-08-08 10:31 | Nephrology Progress Note ---
Date of Service August 08, 2021 Assessment & Plan (1) ESRD (end stage renal disease) on dialysis: Plan: * Will provide HD today and attempt 2 L UF. Orders updated in EMR. HD RN notified * AVF + bruit (2) History of kidney transplant: Plan: * Status 7 currently due to hospitalization and COVID (3) Pneumonia due to COVID-19 virus: Plan: * CXR 08/05 revealed progressive pulmonary infiltrates c/w ARDS * Patient now on BiPAP * Plan of care discussed w/ primary service this morning: Pulmonology plans to intubate, provide mechanical ventilation and pressor support as needed to allow UF on HD * Prognosis remains guarded Admission and Anticipated Discharge Date Admission Date: July 23, 2021 Subjective Mr. Levy was evaluated in the COVID isolation [place] this morning. He now requires BiPAP for respiratory support Review of Systems Review of Systems: Unobtainable due to BiPAP support Physical Exam Constitutional: + ill appearing Eyes: PERRL, conjunctivae normal, anicteric sclerae ENMT: external ear and nose normal, oropharynx normal Neck: trachea midline, no thyromegaly Respiratory: + labored breathing and + tachypneic Cardiovascular: RRR, no murmur, no edema Gastrointestinal (Abdomen): normal bowel sounds, soft, nontender, no hepatosplenomegaly Skin: no rashes, warm and dry Neurologic: awake Results & Data ([facility]) Vital Signs (Past 12 Hours) Vital Signs Temp Pulse Pulse Pulse Resp BP Pulse Ox 08/08/21 07:55 86 30 H 91 08/08/21 07:01 36.4 C L 85 34 H 149/71 H 94 08/08/21 05:19 88 29 H 90 08/08/21 04:46 79 34 H 92 08/08/21 03:30 36.5 C 79 149/81 H 91 08/08/21 01:58 76 24 90 08/07/21 23:00 86 08/07/21 22:35 36.4 C L 83 22 165/87 H 88 L PG Care Time/CCT Total # of Minutes Spent Total Time Spent with Patient: Total time spent is greater than 50% in coordination of care (as documented) at patient's floor/unit and/or counseling patient: Coding Level of Care Code 91983 Subseq Hosp Care Lvl 3 Diagnoses ESRD (end stage renal disease) on dialysis N18.6; Z99.2 History of kidney transplant Z94.0 Pneumonia due to COVID-19 virus U07.1; J12.82
--- NOTE | 2021-08-08 10:35 | Procedure Note ---
Procedure Note Date of Service August 08, 2021 Note INTUBATION PROCEDURE NOTE: Attending: Dr Lee Ann Lawson MD Patient was evaluated and plan to intubate was made for ventilatory failure. Sedative agent used: Etomidate 20 mg, lidocaine 100 mg Paralysis agent used: Rocuronium 50 mg Verbal consent was obtained prior to intubation which the patient agreed to The patient was prepared in the appropriate fashion. The patient was easily pre-oxygenated by using [id number] ventilation. With help of glide scope grade 2 vocal cords were visualized and 7.5 Thai ETT was introduced on first attempt to 25 cm at the lip. The stylette was removed and balloon was inflated with 10mL of air. Appropriate Colorimetric change was appreciated for at least 10 breaths. Bilateral chest rise and breath sounds were appreciated without air sounds in the epigastrium. Patient tolerated the procedure well and there were no immediate complications. Chest Xray to follow for confirming placement. Coding CPT Codes Resuscitation - Resuscitation: [id number] Endotracheal Intubation, emergency ([id number]) [facility] [place] Procedure Codes (Charges) Resuscitation Resuscitation: [id number] Endotracheal Intubation, emergency
--- NOTE | 2021-08-08 10:35 | Critical Care Consultation ---
Date of Consultation August 08, 2021 Assessment & Plan (1) Pneumonia due to 2019-nCoV: (2) ARDS (adult respiratory distress syndrome): (3) ESRD (end stage renal disease) on dialysis: 55-year-old male with a history of end-stage renal disease admitted to the hospital due to COVID-19 viral pneumonia and ARDS. Neurologic: Sedation: Propofol Anesthesia: Fentanyl Pulmonary: --VDRF with acute hypoxic respiratory failure Multifactorial Secondary to multilobar COVID-19 pneumonia Fluid overload playing a major role here COVID-19 PCR positive 07/18/2021 Notified for remdesivir Cardiovascular: --Episodes of hypotension while the patient is getting dialyzed Vasopressor support on dialysis --History of sinus bradycardia Continue to monitor Avoid negative inotropic agents Gastrointestinal: Start tube feeds after intubation Renal: --End-stage renal disease Nephrology on board Dialysis with pressure support if need be Infectious disease: Patient has completed 7 days of cefepime and doxy Currently on 6 mg of dexamethasone Hematologic: Monitor H&H Endocrine: ICU hypoglycemia protocol --Prophylaxis VTE: Heparin GI: Protonix Lines: Right IJ, right radial, positive Mckeon Diet: Tube feeds Plan: Chest x-ray from today shows significant bilateral alveolar opacities with pulmo nary vascular congestion Start vasopressor support if the map goes less than 65 with dialysis Plan was discussed with Dr. Gomez I have personally spent 56 minutes of critical care time in the direct management of this patient. This is a life/limb threatening event. This includes time spent evaluating patient, direct bedside care, chart review, placing orders, interpretation of diagnostic studies, discussion with consultants, patient, and family members, as well as other required patient management activities. This time is exclusive of all separately billable procedures, and teaching time and separate from and in addition to any other critical care service time. Please note the above document was generated using voice recognition software. It may contain grammatical, syntax or spelling errors. History of Present Illness Attending Physician: Yuniel Gomez MD History of Present Illness 55-year-old male past medical history of end-stage renal disease status post renal transplant in 2018 rejection 2016 presented to the hospital 07/21/2021 due to increasing shortness of breath He was found to be Covid positive on 07/18/2021 He was initially consulted in the ICU on 07/30/2021 for hypotension bradycardia and hypoxemia He was successfully transferred out of the ICU ICU reconsulted again today as patient was on 100% BiPAP saturating 8990% getting restless and pulling of the mask Patient was not able to be dialyzed in the last couple of sessions appropriately because of hypotension At the time of examination patient was 100% FiO2, BiPAP 12/6 saturating 89-90% I went up to BiPAP at 14/10. Patient was breathing in high 20s to low 30s He was restless He had 1-1 Patient denied any chest pain. He agreed to intubation but only for 2 days if need be He did not want tracheostomy or anything to be done infiltrate is not able to be brought out of the ventilator Allergies Allergy/AdvReac Type Severity Reaction Status Date / Time adhesive Allergy Mild SKIN Verified 07/21/21 13:35 IRRITATION morphine AdvReac Intermediate "WACKS ME Verified 07/21/21 13:35 OUT, DO THINGS THAT CAN'T REMEMBER" aspirin AdvReac Mild NOSE BLEED Verified 07/21/21 13:35 Home Medications Medication Instructions Recorded Confirmed Type atorvastatin 40 mg tablet (Lipitor) 40 mg PO QAM 07/13/21 07/21/21 History sodium polystyrene sulfonate 15 g PO [id number] 07/13/21 07/21/21 History sucroferric oxyhydroxide 500 mg 1,000 mg PO TIDM 07/13/21 07/21/21 History chewable tablet (Velphoro) vitamin B complex-vitamin C-folic 1 tab PO QAM 07/13/21 07/21/21 History acid 0.8 mg tablet (Nephro-Monserrat) amlodipine 5 mg tablet (Norvasc) 5 mg PO QAM 30 Days #30 tab 07/17/21 07/21/21 Rx metoprolol tartrate 50 mg tablet 50 mg PO BID 30 Days #60 tab 07/17/21 07/21/21 Rx Patient History Medical History (Updated 08/01/21 @ 09:56 by Jose Brice DO) Anemia due to chronic kidney disease ARDS (adult respiratory distress syndrome) Chronic back pain Diabetes mellitus diet controlled Esophageal reflux controlled ESRD (end stage renal disease) on dialysis [facility] History of blood transfusion 4 years ago (in setting of plasmaphoresis for kidney issues) Hx of malignant skin melanoma Hypercholesterolemia Hyperparathyroidism Hypertension Kidney transplant failure Mild aortic valve stenosis Per 3/2/20 ECHO Obesity Osteoarthritis Palliative care encounter Surgical History H/O radical excision of skin lesion back r/t melanoma History of bowel resection r/t diverticulitis History of cataract surgery bilateral History of colonoscopy History of colostomy History of colostomy reversal ~2006 History of esophagogastroduodenoscopy (EGD) 08/20/19: MAC sedation at [facility] History of kidney transplant ~2008 S/P arteriovenous (AV) fistula creation left arm Family History Mother Family history of diabetes mellitus Father FHx: myocardial infarction, Onset Age: 69 Other No family history of adverse response to anesthesia Denies family history of Crohn's disease Colorectal cancer Ulcerative colitis Social History Smoking Status: Never smoker Second Hand Exposure: No; Hx Alcohol Use: Yes Alcohol type: beer and wine Alcohol Intake Frequency: Monthly or Less Hx Substance Use: No Preferred Language: Bulgarian Communication Ability: Effective 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 Beliefs That Will Affect Care: None marital status: Current Living Situation: Spouse Feels Safe at Home: Yes Assistive Devices: Oxygen - Continuous Review of Systems Review of Systems: All systems reviewed & are unremarkable except as noted in HPI & below Physical Exam Physical Exam: Constitutional: In respiratory distress HEENT: EOMI, PERRLA Respiratory system: Decreased air entry bilaterally, no wheeze, no rhonchi, positive crackles bilaterally CVS: S1-S2 positive, no murmurs or gallops Abdomen: Soft, nontender, nondistended, positive bowel sounds x4 Extremities: +2 pulses bilaterally radialis/ dorsalis pedis, no cyanosis, +1 pitting edema bilateral lower extremities Neuro: Awake alert oriented x3 Psych: Restless mood and affect G/U: No Mckeon Skin: no rashes, warm and dry Lymphatic: no cervical or axillary lymphadenopathy Results & Data Results & Data ([facility]) Vital Signs (Past 12 Hours) Vital Signs Temp Pulse Pulse Pulse Resp BP Pulse Ox 08/08/21 07:55 86 30 H 91 08/08/21 07:01 36.4 C L 85 34 H 149/71 H 94 08/08/21 05:19 88 29 H 90 08/08/21 04:46 79 34 H 92 08/08/21 03:30 36.5 C 79 149/81 H 91 08/08/21 01:58 76 24 90 08/07/21 23:00 86 08/07/21 22:35 36.4 C L 83 22 165/87 H 88 L 08/07/21 05:55 08/07/21 05:55 Coding Level of Care Code Critical Care 1st 30-74 mins Diagnoses Pneumonia due to 2019-nCoV U07.1; J12.82 ARDS (adult respiratory distress syndrome) J80 ESRD (end stage renal disease) on dialysis N18.6; Z99.2 Time Spent (min) 56
--- NOTE | 2021-08-08 10:36 | Procedure Note ---
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 Lee Ann Lawson Indication: ARDS Consent: Emergent consent was applied Anesthesia: 1% lidocaine without epinephrine local. Procedure: Consent was verified and timeout performed. Appropriate imaging studies were reviewed prior to the procedure. Under aseptic and sterile condition, right IJ vein was accessed under direct ultrasound guidance. Guidewire was confirmed to be within the lumen of vein with the help of ultrasound. Catheter was introduced via Seldinger technique. Guide a wire was removed. Good non-pulsatile blood flow was appreciated from all the ports. The catheter was placed at 16 cm and sut[address] in place. BioPatch was applied to the catheter and a sterile Tegaderm dressing was applied over the catheter with careful attention to sterility. Lung sliding was appreciated post procedure with the help ultrasound. Chest x-ray to follow Patient tolerated the procedure well. Blood loss: Less than 2 cc Complications: None Coding CPT Codes Tubes, Drains, and Vasc Access - Tubes, Drains, and Vasc Access: [id number] Place catheter in vein superior or inferior vena cava ([id number]) Tubes, Drains, and Vasc Access - Tubes, Drains, and Vasc Access: [id number] Ultrasound Guidance For Vascular ([id number]) [facility] [place] Procedure Codes (Charges) Tubes, Drains, and Vasc Access Procedure 1: Tubes, Drains, and Vasc Access: [id number] Place catheter in vein superior or inferior vena cava Procedure 2: Tubes, Drains, and Vasc Access: [id number] Ultrasound Guidance For Vascular
--- NOTE | 2021-08-08 10:36 | Procedure Note ---
Procedure Note Date of Service August 08, 2021 Note ARTERIAL LINE PROCEDURE NOTE: Procedure: Arterial Line Placement Attending: Dr. Lee Ann Lawson MD Indication: Monitoring on Pressors Anesthesia: General Emergent consent was applied A time-out was completed verifying correct patient, procedure, site, positioning, and implant(s) or special equipment if applicable. Allens test was performed to ensure adequate perfusion. Patients right wrist was prepped and draped in the usual sterile fashion. Ultrasound guidance was used to aid needle placement. A 20g Arrow arterial line was introduced into the right radial artery. Catheter was threaded, and the needle was removed with appropriate pulsatile blood return. Good waveform was observed on the monitor. The patient tolerated the procedure well. Confirmation of placement with ultrasound. Images saved to medical record. Complications: None Blood Loss: 2cc Coding CPT Codes Tubes, Drains, and Vasc Access - Tubes, Drains, and Vasc Access: [id number] Insertion Catheter, Artery ([id number]) Tubes, Drains, and Vasc Access - Tubes, Drains, and Vasc Access: [id number] Ultrasound Guidance For Vascular ([id number]) [facility] [place] Procedure Codes (Charges) Tubes, Drains, and Vasc Access Procedure 1: Tubes, Drains, and Vasc Access: [id number] Insertion Catheter, Artery Procedure 2: Tubes, Drains, and Vasc Access: [id number] Ultrasound Guidance For Vascular
[2021-08-08 12:08] LABS: iSTAT Art Bld Gas pCO2 Correct 59 mmHg (35-46); iSTAT Art Bld Gas pH Corrected 7.202 (7.35-7.45); iSTAT Arterial Blood Gas HCO3 23 meg/L (19-24); iSTAT Arterial Blood Gas pCO2 59 mmHg (35-46); iSTAT Arterial Blood Gas pO2 89 mmHg (80-95); iSTAT Arterial Blood Gas pO2 C 89; iSTAT Carbon Dioxide 25 mmol/L (24-31); iSTAT Hematocrit 28 % (42-52); iSTAT Hemoglobin 9.5 g/dl (14.0-18.0); iSTAT Potassium 6.3 mmol/L (3.3-5.0); iSTAT Site Art Line; iSTAT Sodium 132 mmol/L (135-144)
[2021-08-08] MEDS: SEVELAMER HCL 800 MG TABLET PO SCH ×3 (12:12→16:59)
[2021-08-08] MEDS: CALCIUM CARBONATE 500 MG CHEWABLE TAB PO SCH ×3 (12:12→16:59)
[2021-08-08] MEDS: guaiFENesin 600 MG TABCR PO SCH (12:12)
[2021-08-08] MEDS: ATORVASTATIN 40 MG TAB PO SCH (12:12)
[2021-08-08] MEDS: VELPHORO PO SCH ×3 (12:12→16:59)
[2021-08-08] MEDS: DOCUSATE SODIUM 100 MG CAP PO SCH (12:12)
[2021-08-08] MEDS: METOPROLOL TARTRATE 25 MG TAB PO SCH (12:13)
[2021-08-08] MEDS: PANTOprazole 40 MG TAB PO SCH (12:13)
[2021-08-08] MEDS: VITAMIN B COMPLEX TAB PO SCH (12:13)
[2021-08-08] MEDS: NEPHROCAPS PO SCH (12:13)
--- NOTE | 2021-08-08 12:22 | XRay Report ---
XR chest 1V portable, XR KUB/Abdomen 1 view HISTORY: 55 years-old Male s/p intubation acute respiratory failure COMPARISON: Chest radiograph of same day at 5:47 AM, CT abdomen and pelvis 12/13/2019 TECHNIQUE: Portable AP view the chest with KUB radiograph FINDINGS: CHEST: Endotracheal tube overlies the midline, 6.0 cm superior to the martha. Right IJ central venous cathet er distal tip is noted in the expected location of the superior cavoatrial junction. Enteric tube dis samantha tip overlies the gastric body. Extensive bilateral airspace opacities, left greater than right singer ve not significantly changed. No pneumothorax or large pleural effusion. Degenerative changes of the shoulders and spine. KUB: Distal tip of enteric tube projects over the gastric body. Nonobstructive bowel gas pattern. No pneum atosis or pneumoperitoneum. No urolith or acute fracture. IMPRESSION: 1. Satisfactory positioning of the lines and tubes as above. 2. Extensive bilateral airspace opacities appear stable. 3. Nonobstructive bowel gas pattern. ACT 112: Negative or not required by law. The above report was generated using voice recognition software. It may contain grammatical, syntax o r spelling errors. Electronically signed by: Garland Angel M.D. 08/08/2021 12:21 PM
[2021-08-08] MEDS ORDERED: STAT IV Infusion **Titration per Protocol STA ×2 (12:26→12:27)
[2021-08-08] MEDS: INSULIN GLARGINE SOLOSTAR 100 UNITS/ML 3 ML PEN SC SCH (12:45)
[2021-08-08] MEDS: propofoL 1,000 MG/100 ML VIAL IV SCH ×3 (12:56→23:24)
[2021-08-08] MEDS: fentaNYL DRIP 1,250 MCG/250 ML BAG IV SCH (12:57)
[2021-08-08] MEDS: NOREPINEPHRINE/D5W 8 MG/508 ML BAG IV SCH (12:57)
[2021-08-08] MEDS: HEPARIN SOD (PORCINE) 1000 UNIT/ML IV SCH (13:58)
[2021-08-08] MEDS ORDERED: LIDOCAINE 2% 20 MG/ML 5 ML SYR IV ONE (17:22)
[2021-08-08] MEDS ORDERED: ETOMIDATE 2 MG/ML 20 ML VIAL IV ONE (17:22)
[2021-08-08] MEDS ORDERED: ROCURONIUM BROMIDE 10 MG/ML 5 ML VIAL IV ONE (17:22)
[2021-08-08] MEDS ORDERED: ICU PROTOCOL FOR HYPERGLYCEMIA PRN (17:29)
--- NOTE | 2021-08-08 17:40 | Hospitalist Progress Note ---
Date of Service August 08, 2021 Assessment & Plan (1) Acute respiratory failure with hypoxia: Plan: due to severe COVID-19 pneumonia, developed into ARDS. Pulmonary edema likely contributing, difficult to remove fluid with HD Escalating oxygen requirements prompted progression to intubation on 08/08/2021 completed 7 days of cefepime/doxy Remains on Dexamethasone 6 mg Prior to intubation discussed with patient and both understand that this is a bad prognostic sign but it hopefully will help us to be able to dialyze him to volume offload him in hopes of improving oxygenation by reducing any pulmonary edema that may be present (2) Pneumonia due to 2019-nCoV: Plan: Patient's been on dexamethasone since admission he had gone from 6 to 10 mg but now back to 6. Unclear its treatment at this point time as his oxygen requirements have been stubborn not a candidate for Remdesivir treatment crp and procal were both high - finished 7 days of Cefepime/Doxy Did not meet criteria for baricitinib (3) Sinus bradycardia: Plan: dropped to 40's on morning of 07/30 EKG showed sinus rhythm, no block responded to Atropine 0.5mg IV push, no further doses needed Atropine is at the bedside PRN metoprolol was on hold for two days, resumed at 25mg BID on 08/01, HR in 60-70's (4) Hypotension: Plan: occurred on 07/30, now resolved, actually hypertensive (5) ESRD (end stage renal disease) on dialysis: Plan: [facility] [place] nephrology typical HD schedule of M/W/F only 1600mL UF on 08/03 and 900mL UF on 08/04 no HD today due to having no nurse available try for HD tomorrow (6) Anxiety: Plan: Seems to have panic attacks which negatively affect his respiratory state and status he says he needs something when the anxiety gets really bad typically remedied with Ativan. (7) Acute respiratory distress syndrome (ARDS) due to 2019 novel coronavirus: Plan: Progress to intubation poor prognostic sign discussed with pulmonary medicine with [place] that steroids are indicated (8) Nausea: (9) Diabetes mellitus type 2 in nonobese: Plan: controlled at this time novolog SSI lantus 8 units daily Glycemic management per pharmacy (10) Hyperparathyroidism: Plan: Secondary to ESRD Continue VELPHORO (11) Hypercholesterolemia: Plan: Continue atorvastatin LFTs nl this admission (12) Hypertension: Plan: Hypertension has been an issue briefly requiring pressors (13) Anemia due to chronic kidney disease: Plan: stable (14) DVT prophylaxis: Plan: heparin TID recent CTA chest neg for PE Plan: I personally spent 58 minutes of critical care time according this patient is intubation and transfer to intensive care unit including personal discussions with Dr. Lawson Admission and Anticipated Discharge Date Admission Date: July 23, 2021 Subjective Patient marked respiratory distress this morning. Discussion with patient and his agreed to proceed to intubation. Patient was requiring BiPAP at 100%. Discussion with from pulmonary critical care intubation was performed arterial line was placed patient did require pressors for dialysis. is updated in the evening approximately 1735 Review of Systems Review of Systems: Severe respiratory distress and fatigue no headache, no visual changes no speech or swallowing issues no chest pain, pressure or palpitations marked shortness of breath, barking nonproductive cough no abdominal pain, nausea or vomiting, diarrhea or constipation no dysuria, hematuria or frequency no focal joint pain peripheral swelling noted no back pain, CVA tenderness or radicular pain no bruising, bleeding or rashes no focal signs of weakness or numbness or altered sensation no complaints of anxiety or depression.. Physical Exam Physical Exam: The patient appeared morbidly ill Vital signs as documented. Head exam is normocephalic atraumatic Neck is without JVD, thyromegaly, or carotid bruits. Lungs are diminished breath sounds throughout crackles bilaterally Cardiac exam, Rhythm is regular.. No murmurs, rubs or gallops. Abdominal exam reveals normal bowel sounds, soft non tender, no masses Extremities are 1+ bilateral lower extremity edema Neurologic exam is alert and oriented, no focal loss of strength or sensation Skin is without bruises or rashes Psychologically is without concerns for anxiety or depression Results & Data Results & Data ([facility]) Vital Signs (Past 12 Hours) Vital Signs Temp Pulse Pulse Resp BP BP Pulse Ox 08/08/21 17:00 81 31 H 100 08/08/21 16:45 83 29 H 100 08/08/21 16:30 83 34 H 100 08/08/21 16:15 85 29 H 100 08/08/21 16:00 86 28 H 100 08/08/21 15:49 88 30 H 100 08/08/21 15:45 83 30 H 100 08/08/21 15:31 97.5 F L 85 129/57 L 08/08/21 15:30 87 26 H 128/58 L 100 08/08/21 15:15 88 24 100 08/08/21 15:14 88 108/56 L 08/08/21 15:00 88 17 107/54 L 99 08/08/21 14:45 89 23 100/49 L 98 08/08/21 14:30 88 17 104/53 L 99 08/08/21 14:15 90 23 96/48 L 98 08/08/21 14:00 88 25 H 105/51 L 99 08/08/21 13:55 88 08/08/21 13:45 90 26 H 124/57 L 93 08/08/21 13:30 86 25 H 108/54 L 98 08/08/21 13:15 83 28 H 109/54 L 98 08/08/21 13:00 85 27 H 95/50 L 97 08/08/21 12:45 82 23 89/48 L 96 08/08/21 12:44 28 H 08/08/21 12:30 87 24 96/50 L 96 08/08/21 12:27 91 H 98/48 L 08/08/21 12:15 97.5 F L 89 87 28 H 95 08/08/21 12:00 94 H 30 H 84 L 08/08/21 11:45 91 H 97 08/08/21 11:30 91 H 99 08/08/21 11:16 88 81 L 08/08/21 11:10 91 H 23 96 08/08/21 11:00 108 H 185/102 H 98 08/08/21 10:50 89 85 L 08/08/21 10:30 89 19 91 08/08/21 10:15 88 22 85 L 08/08/21 10:00 88 26 H 96 08/08/21 09:45 85 21 08/08/21 09:30 93 H 23 95 08/08/21 09:15 69 25 H 97 08/08/21 09:00 88 24 147/88 H 93 08/08/21 08:45 92 H 21 91 08/08/21 08:30 86 29 H 93 08/08/21 08:15 85 29 H 91 08/08/21 08:00 86 29 H 144/63 H 89 L 08/08/21 07:55 86 30 H 91 08/08/21 07:45 88 36 H 92 08/08/21 07:30 85 21 92 08/08/21 07:15 83 30 H 82 L 08/08/21 07:01 97.5 F L 85 34 H 149/71 H 94 08/08/21 07:00 87 22 99 08/08/21 06:45 85 28 H 90 08/08/21 06:30 85 30 H 89 L 08/08/21 06:15 84 28 H 92 08/08/21 06:00 91 H 32 H 90 08/08/21 05:45 88 28 H 94 PG Care Time/CCT Total # of Minutes Spent Total Time Spent with Patient: Total time spent is greater than 50% in coordination of care (as documented) at patient's floor/unit and/or counseling patient: 58 minutes Coding Level of Care Code 21498 Subseq Hosp Care Lvl 3 Diagnoses Acute respiratory failure with hypoxia J96.01 Pneumonia due to 2019-nCoV U07.1; J12.82 Sinus bradycardia R00.1 Hypotension I95.9 ESRD (end stage renal disease) on dialysis N18.6; Z99.2 Anxiety F41.9 Acute respiratory distress syndrome (ARDS) due to 2019 novel coronavirus U07.1; J80 Nausea R11.0 Diabetes mellitus type 2 in nonobese E11.9 Hyperparathyroidism E21.3 Hypercholesterolemia E78.00 Hypertension I10 Anemia due to chronic kidney disease N18.9; D63.1 DVT prophylaxis Z29.9 Time Spent (min) 58
[2021-08-09] MEDS: INSULIN ASPART 100 UNITS/ML 3 ML PEN SC SCH ×4 (00:38→20:46)
[2021-08-09] MEDS: PROPOFOL BOLUS FROM BAG IV PRN ×3 (00:40→03:15)
[2021-08-09 04:40] LABS: iSTAT Arterial Blood Gas HCO3 25 meg/L (19-24); iSTAT Arterial Blood Gas pCO2 50 mmHg (35-46); iSTAT Arterial Blood Gas pO2 55 mmHg (80-95); iSTAT Carbon Dioxide 26 mmol/L (24-31); iSTAT FiO2 50 %; iSTAT Site Art Line
[2021-08-09] MEDS: HEPARIN SOD 5,000 UNIT/0.5 ML VIAL SQ SCH (06:13)
[2021-08-09 06:24] LABS: Hematocrit (blood only) 27.5 % (42-52); Hemoglobin 8.9 g/dL (14.0-18.0); Mean Corpuscular Hemoglobin 27.9 pg (25-34); Mean Corpuscular Hgb Conc 32.4 g/dL (32-36); Mean Corpuscular Volume 86.2 fL (80-100); Mean Platelet Volume 9.3 fL (7.4-10.4); Platelet Count 188 K/uL (130-400); RDW Coefficient of Variation 16.6 % (11.5-14.5); RDW Standard Deviation 52.9 fL (36.4-46.3); Red Blood Count 3.19 M/uL (4.7-6.1); White Blood Count 6.79 K/uL (4.8-10.8)
[2021-08-09] MEDS: fentaNYL DRIP 1,250 MCG/250 ML BAG IV SCH ×2 (06:36→17:20)
[2021-08-09 07:25] LABS: Albumin Globulin Ratio 0.5 (0.9-2); Albumin Level 2.1 gm/dl (3.4-5.0); BUN Creatinine Ratio 8.1 (10-20); Bilirubin,Total 0.8 mg/dl (0.2-1); Calcium 9.9 mg/dl (8.5-10.1); Creatinine Clr Calc Pharmacy 10.8 ml/min; Est GFR (African American) 7.7 ml/min; Est GFR (Non-African American) 6.7 ml/min; Globulin 4.5 gm/dl (2.5-4.0); Magnesium 2.8 mg/dl (1.8-2.4); Phosphorus 8.7 mg/dl (2.5-4.9); Potassium 5.1 mmol/L (3.5-5.1); Total Protein 6.6 gm/dl (6.4-8.2)
[2021-08-09] MEDS ORDERED: SODIUM POLYSTYRENE SULFONATE 15G/60ML SUSP PO STA (08:05)
[2021-08-09] MEDS: propofoL 1,000 MG/100 ML VIAL IV SCH ×4 (08:19→22:03)
[2021-08-09] MEDS: NOREPINEPHRINE/D5W 8 MG/508 ML BAG IV SCH ×3 (08:19→19:33)
[2021-08-09] MEDS: VELPHORO PO SCH ×5 (08:23→20:48)
[2021-08-09] MEDS: dexAMETHasone 6 MG in SYRINGE 0 ML IV SCH (08:23)
[2021-08-09] MEDS: ATORVASTATIN 40 MG TAB NG SCH (08:24)
[2021-08-09] MEDS: NEPHROCAPS PO SCH (08:30)
[2021-08-09] MEDS: LANSOPRAZOLE 30 MG SOLTAB NG SCH (08:30)
[2021-08-09] MEDS: VITAMIN B COMPLEX TAB PO SCH (08:30)
[2021-08-09] MEDS ORDERED: HEPARIN SOD (PORCINE) 1000 UNIT/ML IV ONE (08:31)
[2021-08-09] MEDS: SEVELAMER HCL 800 MG TABLET PO SCH ×2 (08:31→13:24)
[2021-08-09] MEDS ORDERED: SODIUM CHLORIDE 0.9% 1000ML 1,000 ML IV PRN (08:31)
--- NOTE | 2021-08-09 08:46 | XRay Report ---
XR chest 1V portable CLINICAL HISTORY: f/u COMPARISON STUDY: Chest radiograph August 08, 2021. FINDINGS: Tip of endotracheal tube is 5.3 cm above the martha. Tip of nasogastric tube is below the l ower aspect of this image but at least within the body of the stomach. Right internal jugular central line is in place. Extensive bilateral airspace opacities have increased. Lung aeration has diminishe d. Cardiac silhouette is partially obscured by extensive bilateral airspace opacities. There is no pn eumothorax. IMPRESSION: 1. Tip of endotracheal tube 5.3 seconds above the martha. 2. Progression of the dense bilateral airspace consolidation. ACT 112: Negative or not required by law. Electronically signed by: Barrie Romero M.D. 08/09/2021 8:44 AM
[2021-08-09] MEDS ORDERED: EPOETIN ALFA 10,000 UNITS/ML VIAL IV SCH (09:00)
[2021-08-09] MEDS ORDERED: LANSOPRAZOLE 30 MG SOLTAB PO SCH (09:00)
--- NOTE | 2021-08-09 09:33 | Nephrology Progress Note ---
Date of Service August 09, 2021 Assessment & Plan (1) ESRD (end stage renal disease) on dialysis: Plan: * POC discussed w/ ICU attending at bedside this am * Patient remains on 65% FiO2, SaO2/FiO2 ratio low at 143, CXR with worsening alveolar congestion. EMR shows net 8L vol positive but weight is down 11kg (24 lbs) since admission. Outpatient HD EDW was 98.5kg, current weight is 87kg. Will provide HD today and attempt 4 L UF to help improve oxygenation * HD orders placed in EMR. HD RN notified * AVF + bruit (2) Pneumonia due to COVID-19 virus: Plan: * CXR 08/08: progressive pulmonary infiltrates, ARDS * Patient now on mechanical ventilation * Prognosis remains guarded Admission and Anticipated Discharge Date Admission Date: July 23, 2021 Subjective Mr. Levy was evaluated in the ICU this morning. He is on mechanical ventilation w/ FiO2 65%. He is sedated w/ Propofol and Fentanyl. He remains on Levophed for BP support. Mr. Levy was dialyzed yesterday for 2L UF. 900 cc infusion for IV meds last 24 hours Physical Exam Constitutional: + ill appearing and + mechanically ventilated Eyes: PERRL, conjunctivae normal, anicteric sclerae ENMT: external ear and nose normal, oropharynx normal Neck: trachea midline, no thyromegaly Respiratory: Auscultation: + diminished lung sounds Cardiovascular: RRR, no murmur, no edema Gastrointestinal (Abdomen): Inspection/Auscultation: + hypoactive bowel sounds Percussion/Palpation: abdomen soft Skin: no rashes, warm and dry Neurologic: sedated Results & Data ([facility]) Vital Signs (Past 12 Hours) Vital Signs Temp Pulse Pulse Resp BP BP Pulse Ox 08/09/21 07:45 120/51 L 08/09/21 07:41 36.7 C 91 H 29 H 124/51 L 93 08/09/21 07:29 90 29 H 91 08/09/21 02:09 85 29 H 92 08/09/21 00:30 89 27 H 144/79 H 94 08/09/21 00:15 84 30 H 94 08/09/21 00:00 86 25 H 94 08/08/21 23:48 90 29 H 98 08/08/21 23:45 87 28 H 98 08/08/21 23:30 91 H 28 H 161/85 H 98 08/08/21 23:15 80 29 H 94 08/08/21 23:00 80 29 H 127/67 94 08/08/21 22:45 82 29 H 93 08/08/21 22:30 84 29 H 133/71 100 08/08/21 22:15 87 24 100 08/08/21 22:00 88 29 H 140/78 98 08/08/21 21:45 84 28 H 98 08/08/21 21:30 83 28 H 125/65 98 Laboratory Results Laboratory Tests 08/09/21 08/09/21 06:00 06:00 WBC 6.79 Hgb 8.9 L Hct 27.5 L Sodium 135 L Potassium 5.1 Chloride 103 Carbon Dioxide 22 BUN 66 H Creatinine 8.07 H* Glucose 83 Calcium 9.9 Phosphorus 8.7 H Magnesium 2.8 H Albumin 2.1 L PG Care Time/CCT Total # of Minutes Spent Total Time Spent with Patient: Total time spent is greater than 50% in coordination of care (as documented) at patient's floor/unit and/or counseling patient: Coding Level of Care Code 46395 Subseq Hosp Care Lvl 3 Diagnoses ESRD (end stage renal disease) on dialysis N18.6; Z99.2 Pneumonia due to COVID-19 virus U07.1; J12.82
--- NOTE | 2021-08-09 10:37 | Palliative Care Progress Note ---
Date of Service August 09, 2021 Assessment & Plan (1) Palliative care encounter: Plan: Marcos experienced increased respiratory distress and was on HiFlow 100% 60L. Continuous conversation held regarding his goals of care yesterday and he was clear as is consistent with previous conversations that he would want to be intubated short term. Yesterday, he indicated to the ICU provider that he would only want to be intubated for two days and was clear and consistent with previous conversations that he would NOT wnat a tracheostomy. I did reach out to his , Susana at [phone] and was able to discuss Marcos's care. She said that she understands that he would need to be on the ventilator for more than two days. She is not sure how long she would want to see him on the ventilator but is hoping for some improvement. We did discuss his overall poor condition related to his kidney failure and she has understanding that she would be the one making a compassionate extubation. We discussed his isolation measures being removed and once a bed is available, would like to come and see him which may be helpful from a decision making standpoint. Palliative will follow to continue to offer support to the family every few days. (2) Hypoxia: Plan: Being treated for COVID-19 PNA. Patient was unvax. Currently intubated and sedated. (3) ESRD (end stage renal disease) on dialysis: Plan: Patient received a kidney transplant in 2007 and rejection in 2015 due to medication non-compliance. Pt tolerated HD today with 2.5 L removed. Requiring Levophed during HD. Patient creatinine today 8.5. Admission and Anticipated Discharge Date Admission Date: July 23, 2021 Subjective Mr. Levy was intubated yesterday. He is sedated with Propofol and Fentanyl. He is receiving an FiO2 of 65%. He is receiving HD and requiring vasoactive medications. Review of Systems Review of Systems: Climax System Assessment Scale: By observation Pain 0/3 SOB: 3/3 Tiredness: 1/3 Nausea: 0/3 Palliative Performance Scale: 20% Physical Exam Constitutional: + ill appearing and + mechanically ventilated ENMT: Mouth: + dry oral mucous membranes Respiratory: + tachypneic Auscultation: + rhonchi Cardiovascular: Rate/Rhythm: regular rate and regular rhythm Heart Sounds: normal S1 and normal S2 Extremities: normal capillary refill and + edema Gastrointestinal (Abdomen): Inspection/Auscultation: abdomen normal to inspection Skin: + pallor Neurologic: Sedated and intubated Results & Data ([facility]) Vital Signs (Past 12 Hours) Vital Signs Temp Pulse Pulse Resp BP BP Pulse Ox 08/09/21 07:45 120/51 L 08/09/21 07:41 36.7 C 91 H 29 H 124/51 L 93 08/09/21 07:29 90 29 H 91 08/09/21 02:09 85 29 H 92 08/09/21 00:30 89 27 H 144/79 H 94 08/09/21 00:15 84 30 H 94 08/09/21 00:00 86 25 H 94 08/08/21 23:48 90 29 H 98 08/08/21 23:45 87 28 H 98 08/08/21 23:30 91 H 28 H 161/85 H 98 08/08/21 23:15 80 29 H 94 08/08/21 23:00 80 29 H 127/67 94 08/08/21 22:45 82 29 H 93 PG Care Time/CCT Total # of Minutes Spent Total Time Spent with Patient: Total time spent is greater than 50% in coordination of care (as documented) at patient's floor/unit and/or counseling patient: 45 minutes with > 50% of that time spent assessing the patient, discussing goals of care with the patients and collaborating with IDt Coding Level of Care Code 06275 Subseq Hosp Care Lvl 3 Diagnoses Palliative care encounter Z51.5 Hypoxia R09.02 ESRD (end stage renal disease) on dialysis N18.6; Z99.2 Time Spent (min) 45
[2021-08-09] MEDS ORDERED: NOVASOURCE RENAL 2.0 CAL 1000ML BAG OG SCH (11:30)
[2021-08-09] MEDS: HEPARIN SOD (PORCINE) 1000 UNIT/ML IV SCH ×2 (12:01→12:02)
--- NOTE | 2021-08-09 13:12 | Critical Care Progress Note ---
Date of Service August 09, 2021 Assessment & Plan (1) Pneumonia due to 2019-nCoV: (2) ARDS (adult respiratory distress syndrome): (3) ESRD (end stage renal disease) on dialysis: Plan: 55-year-old male with a history of end-stage renal disease admitted to the hospital due to COVID-19 viral pneumonia and ARDS. Neurologic: Sedation: Propofol Anesthesia: Fentanyl Pulmonary: --VDRF with acute hypoxic respiratory failure Multifactorial Secondary to multilobar COVID-19 pneumonia Fluid overload playing a major role here COVID-19 PCR positive 07/18/2021 Notified for remdesivir Cardiovascular: --Episodes of hypotension while the patient is getting dialyzed Vasopressor support on dialysis --History of sinus bradycardia Continue to monitor Avoid negative inotropic agents Gastrointestinal: Start tube feeds after intubation Renal: --End-stage renal disease Nephrology on board Dialysis with pressure support if need be Infectious disease: Patient has completed 7 days of cefepime and doxy Currently on 6 mg of dexamethasone Hematologic: Monitor H&H Endocrine: ICU hypoglycemia protocol --Prophylaxis VTE: Heparin GI: Protonix Lines: Right IJ, right radial, positive Mckeon Diet: Tube feeds Plan: In/out: -1100 dialysis AB.30/50/55 on 50% PEEP of 5 Unfortunately patient's lungs are very stiff. Even on increasing PEEP to 8 her peak pressure goes into 50s and plateau goes into mid 30s I do think there is a large component of fluid overload on top of COVID-19 playing a role in his decreased compliance as well as hypoxia Getting the fluid out and getting the patient negative balance would be the best strategy Drop in hemoglobin today. We will repeat H&H after hemodialysis Hold heparin for the time being Start the patient on tube feeds Case was discussed with Dr. Titus I have personally spent 38 minutes of critical care time in the direct management of this patient. This is a life/limb threatening event. This includes time spent evaluating patient, direct bedside care, chart review, placing orders, interpretation of diagnostic studies, discussion with consultants, patient, and family members, as well as other required patient management activities. This time is exclusive of all separately billable procedures, and teaching time and separate from and in addition to any other critical care service time. Please note the above document was generated using voice recognition software. It may contain grammatical, syntax or spelling errors. Admission and Anticipated Discharge Date Admission Date: July 23, 2021 Subjective Patient seen and examined at bedside. No acute distress, no episodes overnight He got hemodialysis yesterday Patient was on 0.05 Levophed He was on 30 propofol 100 of fentanyl His map was in the low 70s Review of Systems Review of Systems: Unobtainable due to endotracheal tube Physical Exam Physical Exam: Constitutional: No acute distress HEENT: PERRLA, positive ETT Respiratory system: Decreased air entry bilaterally, no wheeze, no rhonchi, positive crackles bilaterally CVS: S1-S2 positive, no murmurs or gallops Abdomen: Soft, nontender, nondistended, positive bowel sounds x4 Extremities: +2 pulses bilaterally radialis/ dorsalis pedis, no cyanosis, +1 pitting edema bilateral lower extremities Neuro: Sedated, breathing with vent Psych: Unable to assess G/U: No Mckeon Skin: no rashes, warm and dry Lymphatic: no cervical or axillary lymphadenopathy Results & Data Results & Data ([facility]) Vital Signs (Past 12 Hours) Vital Signs Temp Pulse Pulse Pulse Pulse Resp BP 08/09/21 13:00 98 H 104/51 L 08/09/21 12:45 95 H 113/53 L 08/09/21 12:28 90 121/53 L 08/09/21 12:15 86 121/52 L 08/09/21 12:01 85 121/54 L 08/09/21 12:00 84 28 H 125/70 08/09/21 11:45 84 26 H 106/68 08/09/21 11:30 87 25 H 125/63 08/09/21 11:20 29 H 08/09/21 11:15 79 24 138/63 08/09/21 11:05 08/09/21 11:00 80 27 H 123/61 08/09/21 10:55 08/09/21 10:50 08/09/21 10:45 76 28 H 129/65 08/09/21 10:30 77 28 H 124/66 08/09/21 10:15 71 29 H 114/52 L 08/09/21 10:10 75 115/51 L 08/09/21 10:08 36.5 C 79 73 95 H 120/51 L 08/09/21 10:00 36.5 C 76 73 28 H 137/67 08/09/21 09:45 80 28 H 08/09/21 09:30 80 28 H 133/60 08/09/21 09:15 77 28 H 08/09/21 09:00 68 25 H 08/09/21 08:45 85 28 H 08/09/21 08:30 84 28 H 136/76 08/09/21 08:15 88 28 H 08/09/21 08:00 86 28 H 132/74 08/09/21 07:45 88 30 H 120/51 L 08/09/21 07:41 36.7 C 91 H 29 H 08/09/21 07:30 92 H 28 H 133/70 08/09/21 07:29 90 29 H 08/09/21 07:15 87 28 H 08/09/21 07:00 94 H 30 H 136/68 08/09/21 02:09 85 29 H BP BP Pulse Ox 08/09/21 13:00 08/09/21 12:45 08/09/21 12:28 08/09/21 12:15 08/09/21 12:01 08/09/21 12:00 94 08/09/21 11:45 94 08/09/21 11:30 93 08/09/21 11:20 08/09/21 11:15 91 08/09/21 11:05 130/56 L 08/09/21 11:00 92 08/09/21 10:55 102/44 L 08/09/21 10:50 100/44 L 08/09/21 10:45 93 08/09/21 10:30 92 08/09/21 10:15 94 08/09/21 10:10 08/09/21 10:08 08/09/21 10:00 94 08/09/21 09:45 95 08/09/21 09:30 95 08/09/21 09:15 94 08/09/21 09:00 92 08/09/21 08:45 94 08/09/21 08:30 92 08/09/21 08:15 92 08/09/21 08:00 92 08/09/21 07:45 93 08/09/21 07:41 124/51 L 93 08/09/21 07:30 92 08/09/21 07:29 91 08/09/21 07:15 91 08/09/21 07:00 90 11/04/21 02:09 92 08/09/21 06:00 08/09/21 06:00 Coding Level of Care Code Critical Care 1st 30-74 mins Diagnoses Pneumonia due to 2019-nCoV U07.1; J12.82 ARDS (adult respiratory distress syndrome) J80 ESRD (end stage renal disease) on dialysis N18.6; Z99.2 Time Spent (min) 38
[2021-08-09] MEDS: INSULIN GLARGINE SOLOSTAR 100 UNITS/ML 3 ML PEN SC SCH (13:24)
[2021-08-09] MEDS: TUBE FEEDING WATER FLUSH OG SCH ×3 (13:24→20:47)
[2021-08-09] MEDS ORDERED: STAT IV Infusion **Titration per Protocol STA (15:05)
[2021-08-09 15:16] LABS: Hematocrit (blood only) 35.7 % (42-52); Hemoglobin 11.5 g/dL (14.0-18.0)
[2021-08-09] MEDS: PROSOURCE NO CARB 30 ML/PKT OG SCH ×2 (15:19→20:52)
[2021-08-09] MEDS: VASOPRESSIN 20 UNITS in 0.9 % SODIUM CHLORIDE 100 ML IV SCH ×2 (15:28→23:13)
--- NOTE | 2021-08-09 17:07 | Hospitalist Progress Note ---
Date of Service August 09, 2021 Assessment & Plan (1) Acute respiratory failure with hypoxia: Plan: due to severe COVID-19 pneumonia, developed into ARDS. Pulmonary edema likely contributing, dialysis on pressors with removal of 4 L Escalating oxygen requirements prompted progression to intubation on 08/08/2021 completed 7 days of cefepime/doxy Remains on Dexamethasone 6 mg Prior to intubation discussed with patient and both understand that this is a bad prognostic sign but it hopefully will help us to be able to dialyze him to volume offload him in hopes of improving oxygenation by reducing any pulmonary edema that may be present (2) Pneumonia due to 2019-nCoV: Plan: Patient's been on dexamethasone since admission not a candidate for Remdesivir treatment crp and procal were both high - finished 7 days of Cefepime/Doxy Did not meet criteria for baricitinib (3) Sinus bradycardia: Plan: dropped to 40's on morning of 07/30 EKG showed sinus rhythm, no block responded to Atropine 0.5mg IV push, no further doses needed Atropine is at the bedside PRN metoprolol was on hold for two days, resumed at 25mg BID on 08/01, HR in 60-70's (4) Hypotension: Plan: occurred on 07/30, now resolved, actually hypertensive (5) ESRD (end stage renal disease) on dialysis: Plan: [facility] [place] typical HD schedule of M/W/F only 1600mL UF on 08/03 and 900mL UF on 08/04 no HD today due to having no nurse available try for HD tomorrow (6) Anxiety: Plan: Seems to have panic attacks which negatively affect his respiratory state and status he says he needs something when the anxiety gets really bad typically remedied with Ativan. (7) Acute respiratory distress syndrome (ARDS) due to 2019 novel coronavirus: Plan: Progress to intubation poor prognostic sign discussed with pulmonary medicine with [place] that steroids are indicated (8) Nausea: (9) Diabetes mellitus type 2 in nonobese: Plan: controlled at this time novolog SSI lantus 8 units daily Glycemic management per pharmacy (10) Hyperparathyroidism: Plan: Secondary to ESRD Continue VELPHORO (11) Hypercholesterolemia: Plan: Continue atorvastatin LFTs nl this admission (12) Hypertension: Plan: Hypertension has been an issue briefly requiring pressors (13) Anemia due to chronic kidney disease: Plan: stable (14) DVT prophylaxis: Plan: heparin TID recent CTA chest neg for PE Plan: I personally spent 58 minutes of critical care time according this patient is intubation and transfer to intensive care unit including personal discussions with Dr. Lawson Admission and Anticipated Discharge Date Admission Date: July 23, 2021 Subjective this pt is sedated and ventilated Review of Systems Review of Systems: Unobtainable due to cognitive status and Unobtainable due to endotracheal tube Physical Exam Physical Exam: The patient appeared morbidly ill Vital signs as documented. Head exam is normocephalic atraumatic Neck is with trachea midline no crepitance Lungs are coarse bilaterally Cardiac exam, Rhythm is regular.. No murmurs, rubs or gallops. Abdominal exam reveals normal bowel sounds, soft Extremities are 1+ bilateral lower extremity edema Neurologic exam is sedated Skin is without bruises or rashes Results & Data Results & Data ([facility]) Vital Signs (Past 12 Hours) Vital Signs Temp Pulse Pulse Pulse Pulse Resp BP 08/09/21 16:45 92 H 28 H 08/09/21 16:30 90 28 H 08/09/21 16:15 93 H 28 H 137/59 L 08/09/21 16:00 95 H 28 H 08/09/21 15:56 95 H 29 H 08/09/21 15:45 102 H 28 H 130/76 08/09/21 15:30 102 H 28 H 107/72 08/09/21 15:15 107 H 26 H 120/67 08/09/21 15:00 103 H 25 H 110/47 L 08/09/21 14:45 111 H 26 H 122/66 08/09/21 14:30 109 H 25 H 115/76 08/09/21 14:15 97.5 F L 111 H 111 H 26 H 129/75 08/09/21 14:09 112 H 108/69 08/09/21 14:00 115 H 29 H 08/09/21 13:58 113 H 89/50 L 08/09/21 13:55 114 H 28 H 08/09/21 13:50 111 H 28 H 08/09/21 13:45 106 H 23 127/69 08/09/21 13:31 103 H 99/52 L 08/09/21 13:30 104 H 28 H 110/62 08/09/21 13:15 102 H 25 H 108/72 08/09/21 13:14 100 H 98/50 L 08/09/21 13:00 95 H 26 H 111/78 08/09/21 12:45 92 H 25 H 113/53 L 08/09/21 12:30 89 24 08/09/21 12:28 90 121/53 L 08/09/21 12:15 88 25 H 129/72 08/09/21 12:01 85 121/54 L 08/09/21 12:00 84 28 H 125/70 08/09/21 11:45 84 26 H 106/68 08/09/21 11:30 87 25 H 125/63 08/09/21 11:20 29 H 08/09/21 11:15 79 24 138/63 08/09/21 11:05 08/09/21 11:00 80 27 H 123/61 08/09/21 10:55 08/09/21 10:50 08/09/21 10:45 76 28 H 129/65 08/09/21 10:30 77 28 H 124/66 08/09/21 10:15 71 29 H 114/52 L 08/09/21 10:10 75 115/51 L 08/09/21 10:08 97.7 F 79 73 95 H 120/51 L 08/09/21 10:00 97.7 F 76 73 28 H 137/67 08/09/21 09:45 80 28 H 08/09/21 09:30 80 28 H 133/60 08/09/21 09:15 77 28 H 08/09/21 09:00 68 25 H 08/09/21 08:45 85 28 H 08/09/21 08:30 84 28 H 136/76 08/09/21 08:15 88 28 H 08/09/21 08:00 86 28 H 132/74 08/09/21 07:45 88 30 H 120/51 L 08/09/21 07:41 98.1 F 91 H 29 H 08/09/21 07:30 92 H 28 H 133/70 08/09/21 07:29 90 29 H 08/09/21 07:15 87 28 H 08/09/21 07:00 94 H 30 H 136/68 BP BP Pulse Ox 08/09/21 16:45 97 08/09/21 16:30 96 11/04/21 16:15 96 08/09/21 16:00 95 08/09/21 15:56 96 08/09/21 15:45 95 08/09/21 15:30 96 08/09/21 15:15 95 08/09/21 15:00 95 08/09/21 14:45 96 08/09/21 14:30 95 08/09/21 14:15 110/55 L 95 08/09/21 14:09 08/09/21 14:00 95 08/09/21 13:58 08/09/21 13:55 97 08/09/21 13:50 96 08/09/21 13:45 95 08/09/21 13:31 08/09/21 13:30 97 08/09/21 13:15 96 08/09/21 13:14 08/09/21 13:00 95 08/09/21 12:45 95 08/09/21 12:30 94 08/09/21 12:28 08/09/21 12:15 94 08/09/21 12:01 08/09/21 12:00 94 08/09/21 11:45 94 08/09/21 11:30 93 08/09/21 11:20 08/09/21 11:15 91 08/09/21 11:05 130/56 L 08/09/21 11:00 92 08/09/21 10:55 102/44 L 08/09/21 10:50 100/44 L 08/09/21 10:45 93 08/09/21 10:30 92 08/09/21 10:15 94 08/09/21 10:10 08/09/21 10:08 08/09/21 10:00 94 08/09/21 09:45 95 08/09/21 09:30 95 08/09/21 09:15 94 08/09/21 09:00 92 08/09/21 08:45 94 08/09/21 08:30 92 08/09/21 08:15 92 08/09/21 08:00 92 08/09/21 07:45 93 08/09/21 07:41 124/51 L 93 08/09/21 07:30 92 08/09/21 07:29 91 08/09/21 07:15 91 08/09/21 07:00 90 PG Care Time/CCT Total # of Minutes Spent Total Time Spent with Patient: Total time spent is greater than 50% in coordination of care (as documented) at patient's floor/unit and/or counseling patient: Coding Level of Care Code 59153 Subseq Hosp Care Lvl 2 Diagnoses Acute respiratory failure with hypoxia J96.01 Pneumonia due to 2019-nCoV U07.1; J12.82 Sinus bradycardia R00.1 Hypotension I95.9 ESRD (end stage renal disease) on dialysis N18.6; Z99.2 Anxiety F41.9 Acute respiratory distress syndrome (ARDS) due to 2019 novel coronavirus U07.1; J80 Nausea R11.0 Diabetes mellitus type 2 in nonobese E11.9 Hyperparathyroidism E21.3 Hypercholesterolemia E78.00 Hypertension I10 Anemia due to chronic kidney disease N18.9; D63.1 DVT prophylaxis Z29.9
[2021-08-10] MEDS: ACETAMINOPHEN SUSP 325 MG/10.15 ML UDC PO PRN
[2021-08-10] MEDS: INSULIN ASPART 100 UNITS/ML 3 ML PEN SC SCH ×4 (00:11→18:14)
[2021-08-10] MEDS: propofoL 1,000 MG/100 ML VIAL IV SCH ×5 (02:48→22:19)
[2021-08-10] MEDS: fentaNYL DRIP 1,250 MCG/250 ML BAG IV SCH (02:48)
[2021-08-10] MEDS: VELPHORO PO SCH ×6 (05:04→21:40)
[2021-08-10] MEDS: TUBE FEEDING WATER FLUSH OG SCH ×7 (05:05→23:34)
[2021-08-10 05:20] LABS: iSTAT Art Bld Gas pCO2 Correct 53 mmHg (35-46); iSTAT Art Bld Gas pH Corrected 7.272 (7.35-7.45); iSTAT Arterial Blood Gas HCO3 24 meg/L (19-24); iSTAT Arterial Blood Gas pCO2 52 mmHg (35-46); iSTAT Arterial Blood Gas pH 7.28 (7.35-7.45); iSTAT Arterial Blood Gas pO2 69 mmHg (80-95); iSTAT Arterial Blood Gas pO2 C 72; iSTAT Carbon Dioxide 26 mmol/L (24-31); iSTAT FiO2 45 %; iSTAT Hematocrit 29 % (42-52); iSTAT Hemoglobin 9.9 g/dl (14.0-18.0); iSTAT Potassium 4.8 mmol/L (3.3-5.0); iSTAT Site Art Line; iSTAT Sodium 133 mmol/L (135-144)
[2021-08-10 07:12] LABS: Basophils # (auto) 0.01 K/uL (0-0.2); Basophils % (auto) 0.1 %; Eosinophils # (auto) 0.34 K/uL (0-0.5); Eosinophils % (auto) 4.1 %; Hematocrit (blood only) 28.6 % (42-52); Hemoglobin 9.3 g/dL (14.0-18.0); Immature Granulocytes # (auto) 0.19 K/uL (0.00-0.02); Immature Granulocytes % (auto) 2.3 %; Lymphocytes # (auto) 0.96 K/uL (1.2-3.4); Lymphocytes % (auto) 11.5 %; Mean Corpuscular Hemoglobin 28.2 pg (25-34); Mean Corpuscular Hgb Conc 32.5 g/dL (32-36); Mean Corpuscular Volume 86.7 fL (80-100); Monocytes # (auto) 0.44 K/uL (0.11-0.59); Monocytes % (auto) 5.3 %; Neutrophils # (auto) 6.43 K/uL (1.4-6.5); Neutrophils % (auto) 76.7 %; Nucleated RBC # (auto) 0.02 K/uL (0-0); Nucleated RBC % (auto) 0.2 %; Platelet Count 244 K/uL (130-400); RDW Coefficient of Variation 16.5 % (11.5-14.5); RDW Standard Deviation 53.3 fL (36.4-46.3); White Blood Count 8.37 K/uL (4.8-10.8)
[2021-08-10] MEDS: NOREPINEPHRINE/D5W 8 MG/508 ML BAG IV SCH ×2 (07:31→18:41)
[2021-08-10 08:21] LABS: BUN Creatinine Ratio 6.6 (10-20); Calcium 10.3 mg/dl (8.5-10.1); Creatinine Clr Calc Pharmacy 13.7 ml/min; Est GFR (African American) 10.3 ml/min; Est GFR (Non-African American) 8.9 ml/min; Magnesium 2.7 mg/dl (1.8-2.4); Phosphorus 8.3 mg/dl (2.5-4.9); Potassium 4.3 mmol/L (3.5-5.1)
[2021-08-10] MEDS ORDERED: SODIUM CHLORIDE 0.9% 1000ML 1,000 ML IV PRN (08:26)
[2021-08-10] MEDS ORDERED: HEPARIN SOD (PORCINE) 1000 UNIT/ML IV ONE (08:26)
[2021-08-10] MEDS ORDERED: EPOETIN ALFA 10,000 UNITS/ML VIAL IV SCH (08:30)
--- NOTE | 2021-08-10 08:40 | Nephrology Progress Note ---
Date of Service August 10, 2021 Assessment & Plan (1) ESRD (end stage renal disease) on dialysis: Plan: * POC discussed w/ ICU attending this am * 4L UF obtained yesterday while using pressor support. CXR this am shows improved aeration. FiO2 has been reduced to 45%. Will attempt continued UF today to improve oxygenation status. Note: Patient was 2500 cc volume + last 24 hours due to IVF. Will prescribe 5L UF * HD orders placed in EMR. HD RN notified * AVF + bruit (2) Pneumonia due to COVID-19 virus: Plan: * CXR 08/09: central clearing of pulmonary infiltrates, ARDS * Patient remains on mechanical ventilation but FiO2 reduced to 45% * Prognosis remains guarded Admission and Anticipated Discharge Date Admission Date: July 23, 2021 Subjective Mr. Levy remains sedated, mechanically ventilated. HD performed yesterday for 4 L UF. CXR this am is improved. FiO2 has been reduced to 45%. He remains on Levophed for BP support Review of Systems Review of Systems: Unobtainable due to endotracheal tube Physical Exam Constitutional: + ill appearing and + mechanically ventilated Eyes: PERRL, conjunctivae normal, anicteric sclerae ENMT: external ear and nose normal, oropharynx normal Neck: trachea midline, no thyromegaly Respiratory: Auscultation: + diminished lung sounds Cardiovascular: RRR, no murmur, no edema Gastrointestinal (Abdomen): Inspection/Auscultation: + hypoactive bowel sounds Percussion/Palpation: abdomen soft Skin: no rashes, warm and dry Neurologic: sedated Results & Data ([facility]) Vital Signs (Past 12 Hours) Vital Signs Temp Pulse Resp BP Pulse Ox 08/10/21 07:59 71 28 H 95 08/10/21 06:15 78 28 H 137/70 94 08/10/21 06:00 37.3 C 78 28 H 140/69 94 08/10/21 05:45 77 28 H 134/66 94 08/10/21 05:30 74 28 H 139/66 94 08/10/21 05:15 74 28 H 134/68 94 08/10/21 05:00 37.5 C 78 28 H 127/61 94 08/10/21 04:45 81 28 H 125/65 93 08/10/21 04:30 85 28 H 117/57 L 94 08/10/21 04:15 88 28 H 123/61 94 08/10/21 04:00 37.7 C H 90 28 H 117/60 93 08/10/21 03:45 90 29 H 124/65 93 08/10/21 03:30 89 28 H 114/64 93 08/10/21 03:15 93 H 28 H 120/64 92 08/10/21 03:00 37.8 C H 94 H 29 H 113/65 92 08/10/21 02:45 91 H 28 H 118/67 92 08/10/21 02:41 91 H 28 H 92 08/10/21 02:30 91 H 28 H 119/65 92 08/10/21 02:15 92 H 28 H 121/63 92 08/10/21 02:00 37.9 C H 92 H 28 H 107/66 92 08/10/21 01:45 93 H 29 H 119/66 92 08/10/21 01:30 94 H 28 H 111/65 92 08/10/21 01:15 92 H 28 H 118/61 92 08/10/21 01:00 92 H 28 H 109/65 93 08/10/21 00:45 88 28 H 128/64 93 08/10/21 00:30 38.1 C H 83 28 H 134/64 94 08/10/21 00:00 82 28 H 93 08/09/21 23:40 85 28 H 93 08/09/21 23:30 80 28 H 134/60 92 08/09/21 23:00 38.2 C H 89 127/67 92 08/09/21 22:30 82 119/58 L 92 08/09/21 22:20 82 08/09/21 22:00 83 28 H 137/55 L 94 08/09/21 21:30 82 28 H 133/58 L 94 08/09/21 21:00 81 28 H 125/60 94 Laboratory Results Laboratory Tests 08/09/21 08/10/21 08/10/21 06:00 06:47 06:47 WBC 8.37 Hgb 9.3 L Hct 28.6 L Plt Count 244 Sodium 130 L Potassium 4.3 D Chloride 98 Carbon Dioxide 22 BUN 42 H Creatinine 6.38 H* D Glucose 147 H Calcium 10.3 H Phosphorus 8.3 H Magnesium 2.7 H Albumin 2.1 L PG Care Time/CCT Total # of Minutes Spent Total Time Spent with Patient: Total time spent is greater than 50% in coordination of care (as documented) at patient's floor/unit and/or counseling patient: Coding Level of Care Code 51242 Subseq Hosp Care Lvl 3 Diagnoses ESRD (end stage renal disease) on dialysis N18.6; Z99.2 Pneumonia due to COVID-19 virus U07.1; J12.82
[2021-08-10] MEDS: dexAMETHasone 6 MG in SYRINGE 0 ML IV SCH (09:10)
[2021-08-10] MEDS: ATORVASTATIN 40 MG TAB NG SCH (09:11)
[2021-08-10] MEDS: PROSOURCE NO CARB 30 ML/PKT OG SCH ×3 (09:12→21:41)
[2021-08-10] MEDS: LANSOPRAZOLE 30 MG SOLTAB NG SCH (09:12)
[2021-08-10] MEDS: VITAMIN B COMPLEX TAB PO SCH (09:12)
[2021-08-10] MEDS: NEPHROCAPS PO SCH (09:12)
[2021-08-10] MEDS: INSULIN GLARGINE SOLOSTAR 100 UNITS/ML 3 ML PEN SC SCH (09:21)
--- NOTE | 2021-08-10 09:36 | XRay Report ---
XR chest 1V portable CLINICAL HISTORY: Resp failure TECHNIQUE: Single frontal radiograph of the chest was obtained. Comparison: Comparison is made to chest one view 08/09/2021 FINDINGS: Lines and tubes are unchanged. The cardiomediastinal silhouette is normal. Multifocal airspace opacit ies are slightly improved from the prior exam. No evidence of pleural effusion or pneumothorax. IMPRESSION: Moderate improvement in multifocal airspace opacities. ACT 112: Negative or not required by law. Electronically signed by: Jose Hopkins M.D. 08/10/2021 9:35 AM
--- NOTE | 2021-08-10 11:11 | Critical Care Progress Note ---
Date of Service August 10, 2021 Assessment & Plan (1) Pneumonia due to 2019-nCoV: (2) ARDS (adult respiratory distress syndrome): (3) ESRD (end stage renal disease) on dialysis: Plan: 55-year-old male with a history of end-stage renal disease admitted to the hospital due to COVID-19 viral pneumonia and ARDS. Neurologic: Sedation: Propofol Anesthesia: Fentanyl Pulmonary: --VDRF with acute hypoxic respiratory failure Multifactorial Secondary to multilobar COVID-19 pneumonia Fluid overload playing a major role here COVID-19 PCR positive 07/18/2021 Notified for remdesivir Cardiovascular: --Episodes of hypotension while the patient is getting dialyzed Vasopressor support on dialysis --History of sinus bradycardia Continue to monitor Avoid negative inotropic agents Gastrointestinal: Start tube feeds after intubation Renal: --End-stage renal disease Nephrology on board Dialysis with pressure support if need be Infectious disease: Patient has completed 7 days of cefepime and doxy Currently on 6 mg of dexamethasone Hematologic: Monitor H&H Endocrine: ICU hypoglycemia protocol --Prophylaxis VTE: Heparin GI: Protonix Lines: Right IJ, right radial, positive Mckeon Diet: Tube feeds Plan: In/out: -1300 after dialysis AB.28/52/69 on 45% PEEP of 6 Chest x-ray done today does show improvement in bilateral opacities. I do think patient will benefit more with dialysis Case was discussed with Dr. Titus. Give another 4 hours of dialysis today We will give a consent of the fentanyl today involving the patient. Resume heparin as H&H has been stable I have personally spent 37 minutes of critical care time in the direct management of this patient. This is a life/limb threatening event. This includes time spent evaluating patient, direct bedside care, chart review, placing orders, interpretation of diagnostic studies, discussion with consultants, patient, and family members, as well as other required patient management activities. This time is exclusive of all separately billable procedures, and teaching time and separate from and in addition to any other critical care service time. Please note the above document was generated using voice recognition software. It may contain grammatical, syntax or spelling errors. Admission and Anticipated Discharge Date Admission Date: July 23, 2021 Subjective Patient seen and examined at bedside. No acute distress, no adverse events o vernight on 0.1 on levo, 40 propofol, 125 fentanyl At the time of examination patient's map was in the 80s Patient was breathing with the vent I did go up on the tidal volume to 430 mL, decrease the PEEP to 5 and decrease her respiratory rate to 24 Patient lungs are very stiff. Even on making little bit of changes her PEEP and the plateau pressure go up significantly Review of Systems Review of Systems: Unobtainable due to endotracheal tube Physical Exam Physical Exam: Constitutional: No acute distress HEENT: PERRLA, positive ETT Respiratory system: Decreased air entry bilaterally, no wheeze, no rhonchi, positive crackles bilaterally CVS: S1-S2 positive, no murmurs or gallops Abdomen: Soft, nontender, nondistended, positive bowel sounds x4 Extremities: +2 pulses bilaterally radialis/ dorsalis pedis, no cyanosis, +1 pitting edema bilateral lower extremities Neuro: Sedated, breathing with vent Psych: Unable to assess G/U: No Mckeon Skin: no rashes, warm and dry Lymphatic: no cervical or axillary lymphadenopathy Results & Data Results & Data ([facility]) Vital Signs (Past 12 Hours) Vital Signs Temp Pulse Resp BP Pulse Ox 08/10/21 07:59 71 28 H 95 08/10/21 06:15 78 28 H 137/70 94 08/10/21 06:00 37.3 C 78 28 H 140/69 94 08/10/21 05:45 77 28 H 134/66 94 08/10/21 05:30 74 28 H 139/66 94 08/10/21 05:15 74 28 H 134/68 94 08/10/21 05:00 37.5 C 78 28 H 127/61 94 08/10/21 04:45 81 28 H 125/65 93 08/10/21 04:30 85 28 H 117/57 L 94 08/10/21 04:15 88 28 H 123/61 94 08/10/21 04:00 37.7 C H 90 28 H 117/60 93 08/10/21 03:45 90 29 H 124/65 93 08/10/21 03:30 89 28 H 114/64 93 08/10/21 03:15 93 H 28 H 120/64 92 08/10/21 03:00 37.8 C H 94 H 29 H 113/65 92 08/10/21 02:45 91 H 28 H 118/67 92 08/10/21 02:41 91 H 28 H 92 08/10/21 02:30 91 H 28 H 119/65 92 08/10/21 02:15 92 H 28 H 121/63 92 08/10/21 02:00 37.9 C H 92 H 28 H 107/66 92 08/10/21 01:45 93 H 29 H 119/66 92 08/10/21 01:30 94 H 28 H 111/65 92 08/10/21 01:15 92 H 28 H 118/61 92 08/10/21 01:00 92 H 28 H 109/65 93 08/10/21 00:45 88 28 H 128/64 93 08/10/21 00:30 38.1 C H 83 28 H 134/64 94 08/10/21 00:00 82 28 H 93 08/09/21 23:40 85 28 H 93 08/09/21 23:30 80 28 H 134/60 92 08/10/21 06:47 08/10/21 06:47 Coding Level of Care Code Critical Care 1st 30-74 mins Diagnoses Pneumonia due to 2019-nCoV U07.1; J12.82 ARDS (adult respiratory distress syndrome) J80 ESRD (end stage renal disease) on dialysis N18.6; Z99.2 Time Spent (min) 37
[2021-08-10] MEDS: fentaNYL citrate 2,500 MCG/250 ML BAG IV SCH ×2 (11:32→21:40)
[2021-08-10] MEDS: HEPARIN SOD (PORCINE) 1000 UNIT/ML IV SCH (14:19)
[2021-08-10 15:18] LABS: iSTAT Arterial Blood Gas HCO3 26 meg/L (19-24); iSTAT Arterial Blood Gas pCO2 48 mmHg (35-46); iSTAT Arterial Blood Gas pH 7.34 (7.35-7.45); iSTAT Arterial Blood Gas pO2 74 mmHg (80-95); iSTAT Carbon Dioxide 27 mmol/L (24-31); iSTAT FiO2 40 %; iSTAT Site Art Line
--- NOTE | 2021-08-10 16:50 | Hospitalist Progress Note ---
Date of Service August 10, 2021 Assessment & Plan (1) Acute respiratory failure with hypoxia: Plan: due to severe COVID-19 pneumonia, developed into ARDS. Pulmonary edema likely contributing, dialysis on pressors with removal of 4 L Escalating oxygen requirements prompted progression to intubation on 08/08/2021 completed 7 days of cefepime/doxy Remains on Dexamethasone 6 mg Prior to intubation discussed with patient and both understand that this is a bad prognostic sign but it hopefully will help us to be able to dialyze him to volume offload him in hopes of improving oxygenation by reducing any pulmonary edema that may be present (2) Pneumonia due to 2019-nCoV: Plan: Patient's been on dexamethasone since admission not a candidate for Remdesivir treatment crp and procal were both high - finished 7 days of Cefepime/Doxy Did not meet criteria for baricitinib (3) Sinus bradycardia: Plan: dropped to 40's on morning of 07/30 EKG showed sinus rhythm, no block responded to Atropine 0.5mg IV push, no further doses needed Atropine is at the bedside PRN resumed at 25mg BID on 08/01, HR in 60-70's (4) Hypotension: Plan: occurred on 07/30, now resolved, actually hypertensive (5) ESRD (end stage renal disease) on dialysis: Plan: [facility] [place] typical HD schedule of M/W/F removed 4 l 08/09, 5 L 08/10 (6) Anxiety: Plan: Seems to have panic attacks which negatively affect his respiratory state and status he says he needs something when the anxiety gets really bad typically remedied with Ativan. (7) Acute respiratory distress syndrome (ARDS) due to 2019 novel coronavirus: Plan: Progress to intubation poor prognostic sign discussed with pulmonary medicine with [place] that steroids are indicated (8) Nausea: (9) Diabetes mellitus type 2 in nonobese: Plan: controlled at this time novolog SSI lantus 8 units daily Glycemic management per pharmacy (10) Hyperparathyroidism: Plan: Secondary to ESRD Continue VELPHORO (11) Hypercholesterolemia: Plan: Continue atorvastatin LFTs nl this admission (12) Hypertension: Plan: Hypotension has been an issue briefly requiring pressors (13) Anemia due to chronic kidney disease: Plan: stable (14) DVT prophylaxis: Plan: heparin TID recent CTA chest neg for PE Admission and Anticipated Discharge Date Admission Date: July 23, 2021 Subjective pt has been tolerant of volume removal and improvement in cxr changes Review of Systems Review of Systems: Unobtainable due to cognitive status and Unobtainable due to endotracheal tube Physical Exam Physical Exam: The patient appeared morbidly ill Vital signs as documented. Head exam is normocephalic atraumatic Neck is with trachea midline no crepitance Lungs are coarse bilaterally Cardiac exam, Rhythm is regular.. No murmurs, rubs or gallops. Abdominal exam reveals normal bowel sounds, soft Extremities are 1+ bilateral lower extremity edema Neurologic exam is sedated Skin is without bruises or rashes Results & Data Results & Data ([facility]) Vital Signs (Past 12 Hours) Vital Signs Temp Pulse Pulse Resp BP Pulse Ox 08/10/21 16:45 87 98/50 L 08/10/21 16:30 58 L 111/74 08/10/21 16:15 84 111/69 08/10/21 16:00 91 H 106/66 08/10/21 15:45 88 84/43 L 08/10/21 15:30 86 87/45 L 08/10/21 15:15 87 82/43 L 08/10/21 15:00 82 107/52 L 08/10/21 14:45 85 95/48 L 08/10/21 14:30 82 114/52 L 08/10/21 14:15 75 131/56 L 08/10/21 14:00 75 24 175/82 H 93 08/10/21 13:50 98.4 F 76 08/10/21 13:28 24 08/10/21 13:00 75 24 175/87 H 92 08/10/21 12:00 73 166/82 H 94 08/10/21 11:07 74 28 H 95 08/10/21 11:00 75 28 H 148/75 H 95 08/10/21 10:00 76 137/72 96 08/10/21 09:00 74 133/68 96 08/10/21 08:00 72 128/66 96 08/10/21 07:59 71 28 H 95 08/10/21 07:00 74 28 H 129/68 95 08/10/21 06:15 78 28 H 137/70 94 08/10/21 06:00 99.1 F 78 28 H 140/69 94 08/10/21 05:45 77 28 H 134/66 94 08/10/21 05:30 74 28 H 139/66 94 08/10/21 05:15 74 28 H 134/68 94 08/10/21 05:00 99.5 F 78 28 H 127/61 94 PG Care Time/CCT Total # of Minutes Spent Total Time Spent with Patient: Total time spent is greater than 50% in coordination of care (as documented) at patient's floor/unit and/or counseling patient: Coding Level of Care Code 99088 Subseq Hosp Care Lvl 3 Diagnoses Acute respiratory failure with hypoxia J96.01 Pneumonia due to 2019-nCoV U07.1; J12.82 Sinus bradycardia R00.1 Hypotension I95.9 ESRD (end stage renal disease) on dialysis N18.6; Z99.2 Anxiety F41.9 Acute respiratory distress syndrome (ARDS) due to 2019 novel coronavirus U07.1; J80 Nausea R11.0 Diabetes mellitus type 2 in nonobese E11.9 Hyperparathyroidism E21.3 Hypercholesterolemia E78.00 Hypertension I10 Anemia due to chronic kidney disease N18.9; D63.1 DVT prophylaxis Z29.9
[2021-08-10] MEDS: VASOPRESSIN 20 UNITS in 0.9 % SODIUM CHLORIDE 100 ML IV SCH ×2 (21:39→22:18)
[2021-08-10] MEDS: HEPARIN SOD 5,000 UNIT/0.5 ML VIAL SQ SCH (23:34)
[2021-08-11] MEDS: INSULIN ASPART 100 UNITS/ML 3 ML PEN SC SCH ×4 (00:01→18:47)
[2021-08-11] MEDS: VELPHORO PO SCH ×6 (00:04→21:18)
[2021-08-11] MEDS: NOREPINEPHRINE/D5W 8 MG/508 ML BAG IV SCH ×3 (02:44→12:28)
[2021-08-11 03:13] LABS: iSTAT Art Bld Gas pCO2 Correct 44 mmHg (35-46); iSTAT Art Bld Gas pH Corrected 7.391 (7.35-7.45); iSTAT Arterial Blood Gas HCO3 26 meg/L (19-24); iSTAT Arterial Blood Gas pCO2 42 mmHg (35-46); iSTAT Arterial Blood Gas pH 7.41 (7.35-7.45); iSTAT Arterial Blood Gas pO2 61 mmHg (80-95); iSTAT Arterial Blood Gas pO2 C 65; iSTAT Carbon Dioxide 28 mmol/L (24-31); iSTAT FiO2 30 %; iSTAT Hematocrit 34 % (42-52); iSTAT Hemoglobin 11.6 g/dl (14.0-18.0); iSTAT Potassium 4.3 mmol/L (3.3-5.0); iSTAT Site Art Line; iSTAT Sodium 133 mmol/L (135-144)
[2021-08-11] MEDS: ACETAMINOPHEN SUSP 325 MG/10.15 ML UDC PO PRN (03:25)
[2021-08-11 06:21] LABS: Basophils # (auto) 0.03 K/uL (0-0.2); Basophils % (auto) 0.2 %; Eosinophils # (auto) 0.27 K/uL (0-0.5); Eosinophils % (auto) 2.1 %; Hematocrit (blood only) 33.1 % (42-52); Hemoglobin 11.1 g/dL (14.0-18.0); Immature Granulocytes % (auto) 3.9 %; Lymphocytes # (auto) 1.17 K/uL (1.2-3.4); Lymphocytes % (auto) 9.2 %; Mean Corpuscular Hemoglobin 28.9 pg (25-34); Mean Corpuscular Hgb Conc 33.5 g/dL (32-36); Mean Corpuscular Volume 86.2 fL (80-100); Mean Platelet Volume 9.3 fL (7.4-10.4); Monocytes # (auto) 0.76 K/uL (0.11-0.59); Neutrophils # (auto) 9.99 K/uL (1.4-6.5); Neutrophils % (auto) 78.6 %; Nucleated RBC # (auto) 0.17 K/uL (0-0); Nucleated RBC % (auto) 1.4 %; Platelet Count 326 K/uL (130-400); RDW Coefficient of Variation 16.8 % (11.5-14.5); Red Blood Count 3.84 M/uL (4.7-6.1); White Blood Count 12.72 K/uL (4.8-10.8)
[2021-08-11] MEDS: TUBE FEEDING WATER FLUSH OG SCH ×6 (06:34→23:34)
[2021-08-11] MEDS: HEPARIN SOD 5,000 UNIT/0.5 ML VIAL SQ SCH ×3 (07:10→21:15)
[2021-08-11 07:11] LABS: BUN Creatinine Ratio 5.8 (10-20); Calcium 11.4 mg/dl (8.5-10.1); Est GFR (African American) 13.2 ml/min; Est GFR (Non-African American) 11.4 ml/min; Magnesium 2.5 mg/dl (1.8-2.4); Phosphorus 6.2 mg/dl (2.5-4.9); Potassium 3.9 mmol/L (3.5-5.1)
[2021-08-11] MEDS: propofoL 1,000 MG/100 ML VIAL IV SCH ×5 (07:32→17:37)
--- NOTE | 2021-08-11 07:47 | XRay Report ---
XR chest 1V portable CLINICAL HISTORY: Respiratory failure. COMPARISON STUDY: Chest radiograph August 10, 2021. FINDINGS: Tip of endotracheal tube is 6.2 cm above the martha. Tip of nasogastric tube is within the body of the stomach. Right internal jugular central line remains in place. Cardiomegaly is unchanged. There is no pneumothorax or pleural effusion. Interstitial thickening in bilateral airspace opacitie s are similar to prior exam. IMPRESSION: 1. Tip of endotracheal tube 6.2 cm above the martha. 2. No significant change in bilateral airspace opacities. ACT 112: Negative or not required by law. Electronically signed by: Barrie Romero M.D. 08/11/2021 7:46 AM
[2021-08-11] MEDS: ATORVASTATIN 40 MG TAB NG SCH (10:10)
[2021-08-11] MEDS: dexAMETHasone 6 MG in SYRINGE 0 ML IV SCH (10:10)
[2021-08-11] MEDS: PROSOURCE NO CARB 30 ML/PKT OG SCH ×3 (10:10→20:31)
[2021-08-11] MEDS: NEPHROCAPS PO SCH (10:11)
[2021-08-11] MEDS: LANSOPRAZOLE 30 MG SOLTAB NG SCH (10:11)
[2021-08-11] MEDS: VITAMIN B COMPLEX TAB PO SCH (10:11)
[2021-08-11] MEDS: INSULIN GLARGINE SOLOSTAR 100 UNITS/ML 3 ML PEN SC SCH (10:21)
--- NOTE | 2021-08-11 10:25 | Critical Care Progress Note ---
Date of Service August 11, 2021 Assessment & Plan (1) Pneumonia due to 2019-nCoV: (2) ARDS (adult respiratory distress syndrome): (3) ESRD (end stage renal disease) on dialysis: Plan: 55-year-old male with a history of end-stage renal disease admitted to the hospital due to COVID-19 viral pneumonia and ARDS. Neurologic: Patient placed on sedation vacation. He was previously on propofol and fentanyl. We will aim to extubate today. Pulmonary: --VDRF with acute hypoxic respiratory failure Secondary to multilobar COVID-19 pneumonia Patient with pulmonary edema which has improved while on consecutive days of dialysis. COVID-19 PCR positive 07/18/2021 Cardiovascular: --Episodes of hypotension while the patient is getting dialyzed Vasopressor support on dialysis --History of sinus bradycardia Continue to monitor Avoid negative inotropic agents Gastrointestinal: Tube feeds on hold currently due to spontaneous breathing trial. Renal: --End-stage renal disease Nephrology on board. Patient receiving consecutive days of hemodialysis. Ph osphorus and calcium are elevated. Calcium today is 11.4 likely due to contraction. Infectious disease: Patient has completed 7 days of cefepime and doxy He has been on Decadron for well over 2 weeks. Will taper the dose by 1 mg starting tomorrow. Hematologic: Monitor H&H. Hemoglobin up to 11.1 today likely due to contraction. Endocrine: ICU hypoglycemia protocol --Prophylaxis VTE: Heparin 5000 units every 8. GI: Protonix Lines: Right IJ, right radial, positive Mckeon Diet: Tube feeds on hold. Discussed with bedside nurse. CRITICAL CARE TIME - I have personally spent 33 minutes of critical care time in the direct management of this patient. This is a life/limb threatening event. This includes time spent evaluating patient, direct bedside care, chart review, placing orders, interpretation of diagnostic studies, discussion with consultants, patient, and family members, as well as other required patient management activities. This time is exclusive of all separately billable procedures, and teaching time and separate from and in addition to any other critical care service time. Admission and Anticipated Discharge Date Admission Date: July 23, 2021 Subjective Patient seen and examined this morning. He is currently on propofol and fentanyl infusions. Nonresponsive to commands. I placed him on a sedation vacation and pulses propofol with fentanyl. Discussed with nurse at bedside. No significant events overnight. Currently on minimal vent support including a PEEP of 5 and FiO2 35%. Review of Systems Review of Systems: Unobtainable due to cognitive status and Unobtainable due to endotracheal tube Physical Exam Physical Exam: Constitutional: No acute distress HEENT: PERRLA, positive ETT Respiratory system: Decreased air entry bilaterally, no wheeze, no rhonchi, positive crackles bilaterally CVS: S1-S2 positive, no murmurs or gallops Abdomen: Soft, nontender, nondistended, positive bowel sounds x4 Extremities: +2 pulses bilaterally radialis/ dorsalis pedis, no cyanosis, +1 pitting edema bilateral lower extremities Neuro: Sedated, breathing with vent Psych: Unable to assess G/U: No Mckeon Skin: no rashes, warm and dry Lymphatic: no cervical or axillary lymphadenopathy Results & Data Results & Data ([facility]) Vital Signs (Past 12 Hours) Vital Signs Temp Pulse Resp BP Pulse Ox 08/11/21 07:48 85 24 91 08/11/21 06:45 101.5 F H 92 H 24 89 L 08/11/21 06:30 93 H 24 146/82 H 89 L 08/11/21 06:15 94 H 24 89 L 08/11/21 06:00 94 H 24 89 L 08/11/21 05:45 93 H 24 100 08/11/21 05:30 94 H 24 91 08/11/21 05:15 94 H 24 91 08/11/21 05:00 94 H 26 H 91 08/11/21 04:45 93 H 24 91 08/11/21 04:30 93 H 23 91 08/11/21 04:15 92 H 24 91 08/11/21 04:00 102.4 F H 92 H 24 91 08/11/21 03:45 90 22 143/86 H 92 08/11/21 03:30 90 24 91 08/11/21 03:15 91 H 24 142/79 H 91 08/11/21 03:00 90 24 91 08/11/21 02:45 91 H 138/84 91 08/11/21 02:39 90 24 91 08/11/21 02:30 91 H 24 137/81 91 08/11/21 02:15 100.4 F H 92 H 24 130/78 91 08/11/21 02:00 91 H 24 92 08/11/21 01:45 88 24 91 08/11/21 01:30 88 24 92 08/11/21 01:15 90 24 92 08/11/21 01:00 88 24 92 08/11/21 00:45 89 92 08/11/21 00:30 90 134/80 92 08/11/21 00:15 91 H 92 08/11/21 00:00 100.9 F H 92 H 24 126/78 91 08/10/21 23:45 92 H 24 91 08/10/21 23:30 93 H 24 91 08/10/21 23:15 91 H 91 08/10/21 23:00 93 H 24 91 08/10/21 22:45 91 H 24 130/79 91 08/10/21 22:30 88 24 136/75 92 08/10/21 22:24 89 24 95 vital signs, labs and imaging personally reviewed Coding Level of Care Code Critical Care 1st 30-74 mins Diagnoses Pneumonia due to 2019-nCoV U07.1; J12.82 ARDS (adult respiratory distress syndrome) J80 ESRD (end stage renal disease) on dialysis N18.6; Z99.2 Time Spent (min) 33
--- NOTE | 2021-08-11 11:04 | Nephrology Progress Note ---
Date of Service August 11, 2021 Assessment & Plan (1) ESRD on hemodialysis: (2) History of kidney transplant: (3) Pneumonia due to COVID-19 virus: (4) ARDS (adult respiratory distress syndrome): (5) Acute respiratory failure with hypoxia: Plan: ESRD, on hemodialysis, Friday, Friday, Friday. Last dialysis was last Friday admitted to the hospital with respiratory failure with COVID pneumonia. Intubated on 08/09/21 after worsening respiratory status and 12 to 15 L high flow NC 02. Respiratory status slightly improved after total 9 L extra UF last 2 days although he has been getting around 2L IV fluid with multiple infusions and total still > 10 L positive. Tolerating SBT this am. --Currently tolerating SBT. Will plan for HD today , aim for 4 L UF. -- left arm nephrology precaution, dose medications for GFR less than 10 Will follow Admission and Anticipated Discharge Date Admission Date: July 23, 2021 Ang Rodríguez was seen and examined in his room this morning. He is still intubated but tolerating SBT. BP stable. Had 4 L UF with HD yesterday, electrolyte acceptable. Review of Systems Review of Systems: Unobtainable due to intubation. Physical Exam Physical Exam: Detect physical exam was not done considering COVID isolation, discussed over telephone with the patient. Constitutional: + ill appearing and + mechanically ventilated Respiratory: Auscultation: + diminished lung sounds and + rales Cardiovascular: RRR, no murmur, no edema Extremities: + AV fistula ( Left brachiocephalic AV fistula with thrill and bruit.) Neurologic: unable to obtain due to intubation Results & Data ([facility]) Vital Signs (Past 12 Hours) Vital Signs Temp Pulse Resp BP Pulse Ox 08/11/21 07:48 85 24 91 08/11/21 06:45 38.6 C H 92 H 24 89 L 08/11/21 06:30 93 H 24 146/82 H 89 L 08/11/21 06:15 94 H 24 89 L 08/11/21 06:00 94 H 24 89 L 08/11/21 05:45 93 H 24 100 08/11/21 05:30 94 H 24 91 08/11/21 05:15 94 H 24 91 08/11/21 05:00 94 H 26 H 91 08/11/21 04:45 93 H 24 91 08/11/21 04:30 93 H 23 91 08/11/21 04:15 92 H 24 91 08/11/21 04:00 39.1 C H 92 H 24 91 08/11/21 03:45 90 22 143/86 H 92 08/11/21 03:30 90 24 91 08/11/21 03:15 91 H 24 142/79 H 91 08/11/21 03:00 90 24 91 08/11/21 02:45 91 H 138/84 91 08/11/21 02:39 90 24 91 08/11/21 02:30 91 H 24 137/81 91 08/11/21 02:15 38 C H 92 H 24 130/78 91 08/11/21 02:00 91 H 24 92 08/11/21 01:45 88 24 91 08/11/21 01:30 88 24 92 08/11/21 01:15 90 24 92 08/11/21 01:00 88 24 92 08/11/21 00:45 89 92 08/11/21 00:30 90 134/80 92 08/11/21 00:15 91 H 92 08/11/21 00:00 38.3 C H 92 H 24 126/78 91 08/10/21 23:45 92 H 24 91 08/10/21 23:30 93 H 24 91 08/10/21 23:15 91 H 91 08/10/21 23:00 93 H 24 91 PG Care Time/CCT Total # of Minutes Spent Total Time Spent with Patient: Total time spent is greater than 50% in coordination of care (as documented) at patient's floor/unit and/or counseling patient: Coding Level of Care Code 70726 Subseq Hosp Care Lvl 2 Diagnoses ESRD on hemodialysis N18.6; Z99.2 History of kidney transplant Z94.0 Pneumonia due to COVID-19 virus U07.1; J12.82 ARDS (adult respiratory distress syndrome) J80 Acute respiratory failure with hypoxia J96.01
[2021-08-11] MEDS ORDERED: CALCITONIN SALMON 400 UNITS/2 ML SQ STA (12:50)
[2021-08-11] MEDS ORDERED: CALCITONIN SALMON 100 UNITS in SYRINGE 0 ML SQ ONE (13:15)
[2021-08-11] MEDS ORDERED: STAT IV Infusion **Titration per Protocol STA (13:16)
[2021-08-11] MEDS: PHENYLEPHRINE HCL 20 MG in DEXTROSE 5% 500 ML IV SCH ×2 (14:46→22:55)
--- NOTE | 2021-08-11 16:52 | Hospitalist Progress Note ---
Date of Service August 11, 2021 Assessment & Plan (1) Acute respiratory failure with hypoxia: Plan: due to severe COVID-19 pneumonia, developed into ARDS. Pulmonary edema likely contributing, dialysis on pressors with removal of 4 L Escalating oxygen requirements prompted progression to intubation on 08/08/2021 completed 7 days of cefepime/doxy Remains on Dexamethasone 6 mg hopefully continue to dialyze him to volume offload him in hopes of improving oxygenation by reducing any pulmonary edema, cxr has improved so far (2) Pneumonia due to 2019-nCoV: Plan: Patient's been on dexamethasone since admission not a candidate for Remdesivir treatment crp and procal were both high - finished 7 days of Cefepime/Doxy Did not meet criteria for baricitinib (3) Sinus bradycardia: Plan: dropped to 40's on morning of 07/30 EKG showed sinus rhythm, no block responded to Atropine 0.5mg IV push, no further doses needed Atropine is at the bedside PRN resumed at 25mg BID on 08/01, HR in 60-70's (4) ESRD (end stage renal disease) on dialysis: Plan: [facility] able to dialyze with the patient receiving intravenous pressors for blood pressure support tends to have abrupt pressure drops with dialysis and additionally has seen issues with what appears to be autonomic dysregulation and Covid patients sometimes requiring pressors or medication such as midodrine etc. typical HD schedule of M/W/F has had dialysis much more frequently due to volume overload Dialyzed August 09 and (5) Anxiety: Plan: Seems to have panic attacks which negatively affect his respiratory state and status over has some encephalopathy post extubation we will continue to watch carefully and medicate sparingly (6) Acute respiratory distress syndrome (ARDS) due to 2019 novel coronavirus: Plan: Patient extubated on oxygen mask pulmonary medicine eval continue to monitor (7) Nausea: Plan: Did have improvement with Reglan (8) Diabetes mellitus type 2 in nonobese: Plan: controlled at this time novolog SSI lantus 8 units daily Glycemic management per pharmacy (9) Hyperparathyroidism: Plan: Secondary to ESRD Continue VELPHORO (10) Hypercholesterolemia: Plan: Continue atorvastatin LFTs nl this admission (11) Anemia due to chronic kidney disease: Plan: stable (12) DVT prophylaxis: Plan: heparin TID 07/21/2021 CTA chest neg for PE Admission and Anticipated Discharge Date Admission Date: July 23, 2021 Subjective pt has been extubated and is able to support his breath on oxymask since being volume off loaded, attempt to continue dialysis even if needing pressors, pt is still with some encephalopathy suspect critical care encephalopathy Review of Systems Review of Systems: moderate respiratory distress and fatigue no headache, no visual changes no speech or swallowing issues no chest pain, pressure or palpitations marked shortness of breath, barking nonproductive cough no abdominal pain, nausea or vomiting, diarrhea or constipation no dysuria, hematuria or frequency no focal joint pain peripheral swelling noted no back pain, CVA tenderness or radicular pain no bruising, bleeding or rashes no focal signs of weakness or numbness or altered sensation no complaints of anxiety or depression. Physical Exam Physical Exam: The patient appeared significantly ill Vital signs as documented. Head exam is normocephalic atraumatic Neck is with trachea midline no crepitance Lungs are coarse bilaterally, is moving air well Cardiac exam, Rhythm is regular.. No murmurs, rubs or gallops. Abdominal exam reveals normal bowel sounds, soft Extremities are 1+ bilateral lower extremity edema Neurologic exam is sedated Skin is without bruises or rashes Results & Data Results & Data ([facility]) Vital Signs (Past 12 Hours) Vital Signs Temp Pulse Pulse Resp BP BP Pulse Ox 08/11/21 16:00 99.5 F 98 H 20 125/56 L 94 08/11/21 10:35 125 H 25 H 91 08/11/21 07:48 85 24 91 08/11/21 06:45 101.5 F H 92 H 24 89 L 08/11/21 06:30 93 H 24 146/82 H 89 L 08/11/21 06:15 94 H 24 89 L 08/11/21 06:00 94 H 24 89 L 08/11/21 05:45 93 H 24 100 08/11/21 05:30 94 H 24 91 08/11/21 05:15 94 H 24 91 08/11/21 05:00 94 H 26 H 91 PG Care Time/CCT Total # of Minutes Spent Total Time Spent with Patient: Total time spent is greater than 50% in coordination of care (as documented) at patient's floor/unit and/or counseling patient: Coding Level of Care Code 20261 Subseq Hosp Care Lvl 3 Diagnoses Acute respiratory failure with hypoxia J96.01 Pneumonia due to 2019-nCoV U07.1; J12.82 Sinus bradycardia R00.1 ESRD (end stage renal disease) on dialysis N18.6; Z99.2 Anxiety F41.9 Acute respiratory distress syndrome (ARDS) due to 2019 novel coronavirus U07.1; J80 Nausea R11.0 Diabetes mellitus type 2 in nonobese E11.9 Hyperparathyroidism E21.3 Hypercholesterolemia E78.00 Anemia due to chronic kidney disease N18.9; D63.1 DVT prophylaxis Z29.9
[2021-08-11] MEDS: fentaNYL citrate 2,500 MCG/250 ML BAG IV SCH (17:34)
[2021-08-11] MEDS ORDERED: PIPERACILL/TAZOBAC CONSULT ACTIVE PRN (23:53)
[2021-08-12] MEDS ORDERED: PIPERACILLIN/TAZOBACTAM 3.375 GM in DEXTROSE 5% 100 ML IV ONE
[2021-08-12] MEDS: INSULIN ASPART 100 UNITS/ML 3 ML PEN SC SCH ×4 (00:26→17:54)
[2021-08-12] MEDS: VELPHORO PO SCH ×6 (00:26→19:41)
[2021-08-12] MEDS: TUBE FEEDING WATER FLUSH OG SCH ×2 (01:31→07:44)
[2021-08-12] MEDS ORDERED: VANCOMYCIN CONSULT ACTIVE PRN (04:13)
[2021-08-12] MEDS ORDERED: VANCOMYCIN HCL 1,750 MG in SODIUM CHLORIDE 0.9% 500 ML IV STA (04:20)
--- NOTE | 2021-08-12 04:29 | Pharmacy Report ---
Pharmacy Abx Dose Short Note - Date of Service August 12, 2021 - Assessment & Plan Assessment 55 year old M has been admitted since 07/23/21 with COVID * Febrile, 24 hr tmax of 39.1C. Leukocytosis of 12.7k. ESRD on HD MWF. * Anaerobic bottles from blood cultures growing GPCs, one in chains and one in clusters. * Vancomycin and Zosyn started. Plan Vancomycin * Vancomycin 1750 mg (20 mg/kg) IV x 1 as a loading dose * Goal pre-HD trough between 15-20 mcg/mL * Ordered random level for 08/13/21 prior to next HD session Zosyn * 3.375 g IV every 12 hours Pharmacy will continue to follow and will adjust dose/frequency as necessary. Thank you.
[2021-08-12] MEDS: HEPARIN SOD 5,000 UNIT/0.5 ML VIAL SQ SCH ×3 (05:29→21:16)
[2021-08-12 07:07] LABS: Basophils # (auto) 0.01 K/uL (0-0.2); Basophils % (auto) 0.1 %; Eosinophils # (auto) 0.35 K/uL (0-0.5); Eosinophils % (auto) 2.8 %; Hematocrit (blood only) 31.9 % (42-52); Hemoglobin 10.4 g/dL (14.0-18.0); Immature Granulocytes % (auto) 1.6 %; Lymphocytes # (auto) 0.73 K/uL (1.2-3.4); Lymphocytes % (auto) 5.8 %; Mean Corpuscular Hemoglobin 28.7 pg (25-34); Mean Corpuscular Hgb Conc 32.6 g/dL (32-36); Mean Corpuscular Volume 88.1 fL (80-100); Mean Platelet Volume 9.5 fL (7.4-10.4); Monocytes # (auto) 0.45 K/uL (0.11-0.59); Monocytes % (auto) 3.6 %; Neutrophils # (auto) 10.77 K/uL (1.4-6.5); Neutrophils % (auto) 86.1 %; Nucleated RBC # (auto) 0.06 K/uL (0-0); Nucleated RBC % (auto) 0.5 %; Platelet Count 288 K/uL (130-400); RDW Coefficient of Variation 16.9 % (11.5-14.5); RDW Standard Deviation 53.9 fL (36.4-46.3); Red Blood Count 3.62 M/uL (4.7-6.1); White Blood Count 12.51 K/uL (4.8-10.8)
--- NOTE | 2021-08-12 07:11 | XRay Report ---
XR chest 1V portable CLINICAL HISTORY: Respiratory failure. COMPARISON STUDY: Chest radiograph August 11, 2021. FINDINGS: Right internal jugular central line remains in place. Endotracheal and nasogastric tubes singer ve been removed. Patient is mildly rotated. Cardiomegaly is unchanged. Slight improvement in extensiv e bilateral airspace opacities is noted. There is no pneumothorax or pleural effusion. IMPRESSION: Extensive bilateral airspace opacities, slightly improved since prior exam. Significant improvement since earlier exam of August 09, 2021. ACT 112: Negative or not required by law. Electronically signed by: Barrie Romero M.D. 08/12/2021 7:10 AM
[2021-08-12] MEDS: PHENYLEPHRINE HCL 20 MG in DEXTROSE 5% 500 ML IV SCH ×2 (07:42→18:57)
[2021-08-12] MEDS: LANSOPRAZOLE 30 MG SOLTAB NG SCH (07:43)
[2021-08-12] MEDS: PROSOURCE NO CARB 30 ML/PKT OG SCH ×3 (07:43→21:13)
[2021-08-12] MEDS: VITAMIN B COMPLEX TAB PO SCH (07:43)
[2021-08-12] MEDS: NEPHROCAPS PO SCH (07:43)
[2021-08-12] MEDS: INSULIN GLARGINE SOLOSTAR 100 UNITS/ML 3 ML PEN SC SCH (07:44)
[2021-08-12] MEDS: fentaNYL citrate 2,500 MCG/250 ML BAG IV SCH (07:44)
[2021-08-12] MEDS: ATORVASTATIN 40 MG TAB NG SCH (07:44)
[2021-08-12 07:54] LABS: BUN Creatinine Ratio 7.3 (10-20); Calcium 11.2 mg/dl (8.5-10.1); Creatinine Clr Calc Pharmacy 11.1 ml/min; Est GFR (Non-African American) 6.9 ml/min; Magnesium 2.6 mg/dl (1.8-2.4); Potassium 4.5 mmol/L (3.5-5.1)
[2021-08-12] MEDS ORDERED: PIPERACILLIN/TAZOBACTAM 3.375 GM in DEXTROSE 5% 100 ML IV SCH (08:00)
[2021-08-12 08:17] LABS: Phosphorus 8.9 mg/dl (2.5-4.9)
[2021-08-12] MEDS ORDERED: CALCITONIN SALMON 400 UNITS/2 ML SQ STA (08:35)
[2021-08-12] MEDS ORDERED: CALCITONIN SALMON SQ STA (08:58)
[2021-08-12] MEDS ORDERED: ALBUMIN 5% 250 ML IV ONE (09:00)
[2021-08-12] MEDS ORDERED: dexAMETHasone 5 MG in SYRINGE 0 ML IV SCH (09:00)
--- NOTE | 2021-08-12 10:22 | Nephrology Progress Note ---
Date of Service August 12, 2021 Assessment & Plan (1) ESRD on hemodialysis: (2) History of kidney transplant: (3) Pneumonia due to COVID-19 virus: (4) ARDS (adult respiratory distress syndrome): (5) Acute respiratory failure with hypoxia: Plan: ESRD, on hemodialysis, Friday, Friday, Friday. Last dialysis was last Friday admitted to the hospital with respiratory failure with COVID pneumonia. Intubated on 08/09/21 after worsening respiratory status and 12 to 15 L high flow NC 02, but extubated on 08/11/21. . Respiratory status slightly improved, extubated yesterday. ca has been high --Currently tolerating HD today with 2 ca bath , aim for 2 L UF. --received 2 doses of calcitonin yesterday, ca slightly improved, pending PTH, vit D --left arm nephrology precaution, dose medications for GFR less than 10 Will follow Admission and Anticipated Discharge Date Admission Date: July 23, 2021 Ang Rodríguez was seen and examined in his room during HD this morning. He is doing better, less 02 requirement after extubation yesterday, tolerating HD. BP stable. . Review of Systems Constitutional: + weakness Cardiovascular: no chest pain and no palpitations Gastrointestinal: no abdominal pain Neurologic: no confusion Physical Exam Constitutional: + ill appearing Respiratory: normal respiratory effort and + cough; no respiratory distress Auscultation: + diminished lung sounds and + rales Cardiovascular: RRR, no murmur, no edema Extremities: + AV fistula ( Left brachiocephalic AV fistula with thrill and bruit.) Neurologic: awake; no focal motor deficits and not confused Psychiatric: A+Ox3, euthymic affect Results & Data ([facility]) Vital Signs (Past 12 Hours) Vital Signs Temp Pulse Pulse BP Pulse Ox 08/12/21 10:00 88 140/52 L 08/12/21 09:45 83 145/62 H 08/12/21 09:30 87 135/44 L 08/12/21 09:15 79 135/45 L 08/12/21 09:04 75 141/51 H 08/12/21 08:53 36.8 C 78 08/12/21 06:45 79 104/55 L 94 08/12/21 06:30 80 94 08/12/21 06:15 79 91 11/07/21 06:00 79 116/61 91 11/07/21 05:45 78 88 L 08/12/21 05:30 77 110/60 95 08/12/21 05:15 86 56 L 08/12/21 05:00 79 91 08/12/21 04:45 37.1 C 81 91 08/12/21 04:30 89 08/12/21 04:15 79 89 L 08/12/21 04:00 81 90 08/12/21 03:45 80 88 L 08/12/21 03:30 83 112/57 L 90 08/12/21 03:15 80 90 08/12/21 03:00 79 92 08/12/21 02:45 85 86 L 08/12/21 02:30 81 104/56 L 89 L 08/12/21 02:15 82 92 08/12/21 02:00 81 91 08/12/21 01:45 EST 81 90 08/12/21 01:30 EST 84 114/54 L 88 L 08/12/21 01:15 EST 80 96 08/12/21 01:00 EST 83 93 08/12/21 00:45 83 92 08/12/21 00:30 85 108/56 L 94 08/12/21 00:15 84 92 08/12/21 00:00 83 104/59 L 93 08/11/21 23:45 82 94 08/11/21 23:30 84 103/61 95 PG Care Time/CCT Total # of Minutes Spent Total Time Spent with Patient: Total time spent is greater than 50% in coordination of care (as documented) at patient's floor/unit and/or counseling patient: Coding Level of Care Code 94740 Subseq Hosp Care Lvl 2 Diagnoses ESRD on hemodialysis N18.6; Z99.2 History of kidney transplant Z94.0 Pneumonia due to COVID-19 virus U07.1; J12.82 ARDS (adult respiratory distress syndrome) J80 Acute respiratory failure with hypoxia J96.01
--- NOTE | 2021-08-12 10:23 | Critical Care Progress Note ---
Date of Service August 12, 2021 Assessment & Plan (1) Pneumonia due to 2019-nCoV: (2) ARDS (adult respiratory distress syndrome): (3) ESRD (end stage renal disease) on dialysis: (4) Sepsis: (5) Bacteremia: Plan: 55-year-old male with a history of end-stage renal disease admitted to the hospital due to COVID-19 viral pneumonia and ARDS. Neurologic: Mild lethargy. Monitor for delirium. Avoid sedatives. Pulmonary: Extubated 08/11/2021. Component of postinflammatory COVID-19 illness and volume overload. Currently on 5 L via oxygen mask. COVID-19 PCR positive 07/18/2021 Cardiovascular: Started midodrine 5 mg 3 times daily due to ongoing hypotension. Currently on phenylephrine. Metoprolol on hold. Gastrointestinal: Continue lansoprazole 30 mg daily. Speech consult placed due to intubation and weakness Renal: --End-stage renal disease Nephrology on board. Hypercalcemia noted. Received 100 units of calcitonin subcu 08/11/2021. Will give an additional 50 units subcu calcitonin today. Vitamin D levels, PTH and PTH RP checked yesterday. We will give a 250 cc bolus of 5% albumin. Infectious disease: Blood cultures 08/11/2021 + for GPC. Started overnight on vancomycin and Zosyn. MRSA screen from the blood is negative. Will discontinue vancomycin and Zosyn and de-escalate to ceftriaxone. Will need repeat blood cultures tomorrow. We will need to remove central line and arterial line for line holiday. He has been on Decadron for well over 2 weeks. Continue to taper dexamethasone by 1 mg daily. Hematologic: Monitor H&H. Endocrine: ICU hypoglycemia protocol. Tapering Decadron. --Prophylaxis VTE: Heparin 5000 units every 8. GI: Protonix Lines: Right IJ, right radial, positive Mckeon Diet: NPO. Speech consult pending. Discussed with bedside nurse. CRITICAL CARE TIME - I have personally spent 30 minutes of critical care time in the direct management of this patient. This is a life/limb threatening event. This includes time spent evaluating patient, direct bedside care, chart review, placing orders, interpretation of diagnostic studies, discussion with consultants, patient, and family members, as well as other required patient management activities. This time is exclusive of all separately billable procedures, and teaching time and separate from and in addition to any other critical care service time. Admission and Anticipated Discharge Date Admission Date: July 23, 2021 Subjective Patient seen and examined this morning. Lethargic, but responds to commands appropriately. Currently on low-dose of phenylephrine. On oxygen mask 5 L. Review of Systems Review of Systems: All systems reviewed & are unremarkable except as noted in HPI & below Physical Exam Physical Exam: Constitutional: Tired appearing. Oxy mask in place. Eyes: Pupils are equal round and reactive to light. Conjunctivae are normal. Anicteric sclera. Ears nose, mouth and throat: No obvious deformities. Neck: Trachea is midline. Visual inspection is normal. Respiratory: Coarse lung sounds bilaterally. Mild tachypnea. Cardiovascular: Regular rate and rhythm. No murmurs. Trace edema. Gastrointestinal: Normal bowel sounds, soft, nontender and nondistended. No hepatosplenomegaly noted. Musculoskeletal: Patient is able to move all extremities. Skin: No rashes, warm dry and intact. Neurologic: No obvious focal neurological deficits seen. Psychiatric: Alert and oriented x3 with a euthymic affect. Results & Data Results & Data ([facility]) Vital Signs (Past 12 Hours) Vital Signs Temp Pulse Pulse BP Pulse Ox 08/12/21 09:45 83 145/62 H 08/12/21 09:30 87 135/44 L 08/12/21 09:15 79 135/45 L 08/12/21 09:04 75 141/51 H 08/12/21 08:53 98.2 F 78 08/12/21 06:45 79 104/55 L 94 08/12/21 06:30 80 94 08/12/21 06:15 79 91 08/12/21 06:00 79 116/61 91 08/12/21 05:45 78 88 L 08/12/21 05:30 77 110/60 95 08/12/21 05:15 86 56 L 08/12/21 05:00 79 91 08/12/21 04:45 98.8 F 81 91 08/12/21 04:30 89 08/12/21 04:15 79 89 L 08/12/21 04:00 81 90 08/12/21 03:45 80 88 L 08/12/21 03:30 83 112/57 L 90 08/12/21 03:15 80 90 08/12/21 03:00 79 92 08/12/21 02:45 85 86 L 08/12/21 02:30 81 104/56 L 89 L 08/12/21 02:15 82 92 08/12/21 02:00 81 91 08/12/21 01:45 EST 81 90 08/12/21 01:30 EST 84 114/54 L 88 L 08/12/21 01:15 EST 80 96 08/12/21 01:00 EST 83 93 08/12/21 00:45 83 92 08/12/21 00:30 85 108/56 L 94 08/12/21 00:15 84 92 08/12/21 00:00 83 104/59 L 93 08/11/21 23:45 82 94 08/11/21 23:30 84 103/61 95 chest x-ray with slight improvement compared to the day prior. Bilateral opacities seen. Coding Level of Care Code Critical Care 1st 30-74 mins Diagnoses Pneumonia due to 2019-nCoV U07.1; J12.82 ARDS (adult respiratory distress syndrome) J80 ESRD (end stage renal disease) on dialysis N18.6; Z99.2 Sepsis A41.9 Bacteremia R78.81 Time Spent (min) 30
[2021-08-12] MEDS ORDERED: cefTRIAXone SODIUM 2,000 MG in DEXTROSE 5% 50 ML IV SCH (11:00)
[2021-08-12] MEDS: MIDODRINE HCL 2.5 MG TAB PO SCH ×2 (13:05→16:16)
[2021-08-12] MEDS: ATORVASTATIN 40 MG TAB PO SCH (13:06)
[2021-08-12] MEDS: CALCIUM CARBONATE 500 MG CHEWABLE TAB PO SCH ×2 (13:08→16:16)
[2021-08-12] MEDS: PANTOprazole 40 MG TAB PO SCH (14:58)
--- NOTE | 2021-08-12 15:38 | Hospitalist Progress Note ---
Date of Service August 12, 2021 Assessment & Plan (1) Acute respiratory failure with hypoxia: Plan: due to severe COVID-19 pneumonia, developed into ARDS. Pulmonary edema likely contributing, dialysis on pressors with removal of 4 L Escalating oxygen requirements prompted progression to intubation on 08/08/2021- extubated 08/11 improved with volume off loading suggesting this is from pulmonary edema from hfpef from renal failure, still needs pressors to have dialyses completed 7 days of cefepime/doxy Remains on Dexamethasone 6 mg hopefully continue to dialyze him to volume offload him in hopes of improving oxygenation by reducing any pulmonary edema, cxr has improved so far (2) Pneumonia due to 2019-nCoV: Plan: Patient's been on dexamethasone since admission not a candidate for Remdesivir treatment crp and procal were both high - finished 7 days of Cefepime/Doxy Did not meet criteria for baricitinib (3) Sinus bradycardia: Plan: dropped to 40's on morning of 07/30 EKG showed sinus rhythm, no block responded to Atropine 0.5mg IV push, no further doses needed Atropine is at the bedside PRN resumed at 25mg BID on 08/01, HR in 60-70's (4) ESRD (end stage renal disease) on dialysis: [facility] with the patient receiving intravenous pressors for blood pressure support tends to have abrupt pressure drops with dialysis and additionally has seen issues with what appears to be autonomic dysregulation and Covid patients sometimes requiring pressors or medication such as midodrine etc. typical HD schedule of M/W/F has had dialysis much more frequently due to volume overload Dialyzed August 09 and , still needs pressors for support (5) Anxiety: Plan: Seems to have panic attacks which negatively affect his respiratory state and status over has some encephalopathy post extubation we will continue to watch carefully and medicate sparingly (6) Acute respiratory distress syndrome (ARDS) due to 2019 novel coronavirus: Plan: Patient extubated on oxygen mask pulmonary medicine extubated and continues to manage (7) Nausea: Plan: Did have improvement with Reglan earlier in this stay (8) Diabetes mellitus type 2 in nonobese: Plan: controlled at this time novolog SSI lantus 8 units daily Glycemic management per pharmacy (9) Hyperparathyroidism: Plan: Secondary to ESRD Continue VELPHORO (10) Hypercholesterolemia: Plan: Continue atorvastatin LFTs nl this admission (11) Anemia due to chronic kidney disease: Plan: stable (12) DVT prophylaxis: Plan: heparin TID 07/21/2021 CTA chest neg for PE Admission and Anticipated Discharge Date Admission Date: July 23, 2021 Subjective pt is doing well since extubation but is still a bit sedate, offers no vocal complaints and is being dialysed at this time Review of Systems Review of Systems: improving respiratory distress and fatigue no headache, no visual changes no speech or swallowing issues no chest pain, pressure or palpitations still with shortness of breath, nonproductive cough no abdominal pain, nausea or vomiting, diarrhea or constipation no dysuria, hematuria or frequency no focal joint pain peripheral swelling noted no back pain, CVA tenderness or radicular pain no bruising, bleeding or rashes no focal signs of weakness or numbness or altered sensation Physical Exam Physical Exam: The patient appeared significantly ill but improving oxyenation Vital signs as documented. Head exam is normocephalic atraumatic Neck is with trachea midline no crepitance Lungs are coarse bilaterally, is moving air well Cardiac exam, Rhythm is regular.. No murmurs, rubs or gallops. Abdominal exam reveals normal bowel sounds, soft Extremities are 1+ bilateral lower extremity edema Neurologic exam is lethargic but responds appropriately, does not remember events of last few days Skin is without bruises or rashes Results & Data Results & Data ([facility]) Vital Signs (Past 12 Hours) Vital Signs Temp Pulse Pulse Resp BP BP BP 08/12/21 15:00 94 H 31 H 08/12/21 14:30 98 H 26 H 96/58 L 08/12/21 14:00 91 H 43 H 106/59 L 08/12/21 13:30 91 H 42 H 130/60 08/12/21 13:25 97.7 F 83 129/57 L 124/50 L 08/12/21 13:00 100 H 117/65 08/12/21 12:45 93 H 102/35 L 08/12/21 12:30 101 H 124/40 L 08/12/21 12:15 93 H 131/48 L 08/12/21 12:00 87 112/61 08/12/21 11:45 89 121/43 L 08/12/21 11:30 93 H 130/38 L 08/12/21 11:15 88 133/48 L 08/12/21 11:00 93 H 104/52 L 08/12/21 10:45 87 135/47 L 08/12/21 10:30 84 138/48 L 08/12/21 10:15 86 143/51 H 08/12/21 10:00 85 120/62 08/12/21 09:45 83 145/62 H 08/12/21 09:30 89 135/44 L 08/12/21 09:15 79 135/45 L 08/12/21 09:04 75 141/51 H 08/12/21 09:00 79 135/73 08/12/21 08:53 98.2 F 78 08/12/21 08:30 77 08/12/21 08:00 79 08/12/21 07:30 77 08/12/21 07:00 78 08/12/21 06:45 79 104/55 L 08/12/21 06:30 80 08/12/21 06:15 79 08/12/21 06:00 79 116/61 08/12/21 05:45 78 08/12/21 05:30 77 110/60 08/12/21 05:15 86 08/12/21 05:00 79 08/12/21 04:45 98.8 F 81 08/12/21 04:30 89 08/12/21 04:15 79 08/12/21 04:00 81 08/12/21 03:45 80 Pulse Ox 08/12/21 15:00 94 08/12/21 14:30 88 L 08/12/21 14:00 88 L 08/12/21 13:30 75 L 08/12/21 13:25 08/12/21 13:00 80 L 08/12/21 12:45 08/12/21 12:30 84 L 08/12/21 12:15 08/12/21 12:00 93 08/12/21 11:45 08/12/21 11:30 92 08/12/21 11:15 08/12/21 11:00 88 L 08/12/21 10:45 08/12/21 10:30 93 08/12/21 10:15 08/12/21 10:00 89 L 08/12/21 09:45 08/12/21 09:30 82 L 08/12/21 09:15 08/12/21 09:04 08/12/21 09:00 89 L 08/12/21 08:53 08/12/21 08:30 92 08/12/21 08:00 91 08/12/21 07:30 99 08/12/21 07:00 96 08/12/21 06:45 94 08/12/21 06:30 94 08/12/21 06:15 91 08/12/21 06:00 91 08/12/21 05:45 88 L 08/12/21 05:30 95 08/12/21 05:15 56 L 08/12/21 05:00 91 08/12/21 04:45 91 08/12/21 04:30 08/12/21 04:15 89 L 08/12/21 04:00 90 08/12/21 03:45 88 L PG Care Time/CCT Total # of Minutes Spent Total Time Spent with Patient: Total time spent is greater than 50% in coordination of care (as documented) at patient's floor/unit and/or counseling patient: Coding Level of Care Code 33796 Subseq Hosp Care Lvl 3 Diagnoses Acute respiratory failure with hypoxia J96.01 Pneumonia due to 2019-nCoV U07.1; J12.82 Sinus bradycardia R00.1 ESRD (end stage renal disease) on dialysis N18.6; Z99.2 Anxiety F41.9 Acute respiratory distress syndrome (ARDS) due to 2019 novel coronavirus U07.1; J80 Nausea R11.0 Diabetes mellitus type 2 in nonobese E11.9 Hyperparathyroidism E21.3 Hypercholesterolemia E78.00 Anemia due to chronic kidney disease N18.9; D63.1 DVT prophylaxis Z29.9
[2021-08-13] MEDS: INSULIN ASPART 100 UNITS/ML 3 ML PEN SC SCH ×5 (01:37→21:02)
[2021-08-13] MEDS: VELPHORO PO SCH ×5 (01:37→17:40)
[2021-08-13] MEDS: HEPARIN SOD 5,000 UNIT/0.5 ML VIAL SQ SCH ×3 (05:27→21:00)
[2021-08-13] MEDS: fentaNYL citrate 2,500 MCG/250 ML BAG IV SCH (07:02)
[2021-08-13 08:51] LABS: Basophils # (auto) 0.01 K/uL (0-0.2); Basophils % (auto) 0.1 %; Eosinophils # (auto) 0.33 K/uL (0-0.5); Eosinophils % (auto) 4.7 %; Hematocrit (blood only) 31.6 % (42-52); Hemoglobin 10.3 g/dL (14.0-18.0); Immature Granulocytes # (auto) 0.09 K/uL (0.00-0.02); Immature Granulocytes % (auto) 1.3 %; Lymphocytes # (auto) 0.65 K/uL (1.2-3.4); Lymphocytes % (auto) 9.2 %; Mean Corpuscular Hemoglobin 28.5 pg (25-34); Mean Corpuscular Hgb Conc 32.6 g/dL (32-36); Mean Corpuscular Volume 87.3 fL (80-100); Mean Platelet Volume 9.5 fL (7.4-10.4); Monocytes # (auto) 0.41 K/uL (0.11-0.59); Monocytes % (auto) 5.8 %; Neutrophils % (auto) 78.9 %; Nucleated RBC # (auto) 0.02 K/uL (0-0); Nucleated RBC % (auto) 0.3 %; Platelet Count 250 K/uL (130-400); RDW Coefficient of Variation 17.2 % (11.5-14.5); RDW Standard Deviation 53.7 fL (36.4-46.3); Red Blood Count 3.62 M/uL (4.7-6.1); White Blood Count 7.09 K/uL (4.8-10.8)
--- NOTE | 2021-08-13 08:57 | Critical Care Progress Note ---
Date of Service August 13, 2021 Assessment & Plan (1) Pneumonia due to 2019-nCoV: (2) ARDS (adult respiratory distress syndrome): (3) ESRD (end stage renal disease) on dialysis: (4) Sepsis: (5) Bacteremia: Plan: 55-year-old male with a history of end-stage renal disease admitted to the hospital due to COVID-19 viral pneumonia and ARDS. Extubated 08/11. Recommendations: Neurological: Improved today. Continue to monitor for delirium. Needs aggress jaclyn therapy and out of bed to chair as tolerated. PT and OT evaluations as tolerated. If hemodynamics allow, increase mobilization. Discontinue Ativan Pulmonary: Hypoxemic respiratory failure secondary to Covid pneumonia and fluid overload. Extubated greater than 24 hours now and doing reasonably well. Continue aggressive pulmonary toilet. Chest x-ray continues to demonstrate bilateral pulmonary infiltrates. Unclear how much of this is related to volume and how much may be related to post Covid pneumonitis. Cardiomegaly again noted Cardiovascular: Started midodrine 08/12/2021 5 mg 3 times daily due to ongoing hypotension. Phenylephrine currently on hold. If he remains normotensive off phenylephrine, can likely downgrade out of the ICU. Continue to hold metoprolol. Gastrointestinal: Continue lansoprazole 30 mg daily. Seen by speech yesterday and recommended sips and ice chips. Continue evaluation per speech therapy. Renal: End-stage renal disease on dialysis. Per nephrology. Potassium okay. Mild hyponatremia. BUN and creatinine elevated. Calcium elevated at 11.2. Will defer management to nephrology. Pulmonary status may improve with continued volume removal per nephrology. X-ray appears improved from 07/21/2021 Infectious disease: Blood cultures 08/11/2021 + for GPC. Currently day #2 antibiotics. Initially on Zosyn de-escalating to Rocephin. Did receive 1 dose of vancomycin. Blood cultures from the 08/11 2 out of 2 with coag negative staph and preliminary gram-positive cocci in chains. Surveillance cultures from today are currently pending. Continue antibiotics at this point time. If he is persistently febrile, ID consultation and additional evaluation including echocardiogram may be appropriate. Endocrine: Glycemic control per protocol. Decrease dexamethasone to 2 mg daily for the next 2 days and then discontinue Hematologic: Monitor H&H. --Prophylaxis VTE: Heparin 5000 units every 8. GI: Protonix Lines: Right IJ, right radial, positive Mckeon Diet: Per speech therapy Discussed with bedside nurse. Patient discussed on multidisciplinary rounds and with critical care bedside nurse. Total of 37 minutes was spent evaluation management of this patient.. Admission and Anticipated Discharge Date Admission Date: July 23, 2021 Subjective Patient seen and examined. EMR reviewed. 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 The patient is awake alert this morning. He states he is coughing and expectorating phlegm. He denies any chest pain or palpitations. He does feel weak. He is trying to advance his diet but does feel significantly debilitated. Review of Systems Review of Systems: All systems reviewed & are unremarkable except as noted in Subjective Physical Exam Constitutional: + frail appearing; no acute distress and not in distress Neck: trachea midline, no thyromegaly Respiratory: normal respiratory effort; no respiratory distress, no labored breathing and no cough Auscultation: + rales; no wheezes Cardiovascular: RRR, no murmur, no edema Gastrointestinal (Abdomen): normal bowel sounds, soft, nontender, no hepatosplenomegaly Musculoskeletal: Extremities: extremities normal to inspection Skin: no rashes, warm and dry Neurologic: Nonfocal exam Lymphatic: no cervical lymphadenopathy Results & Data Results & Data ([facility]) Vital Signs (Past 12 Hours) Vital Signs Temp Pulse Resp BP Pulse Ox 08/13/21 06:15 36.5 C 74 12 98 08/13/21 06:00 72 26 H 96/51 L 100 08/13/21 05:45 73 6 L 100 08/13/21 05:30 75 17 113/57 L 99 08/13/21 05:15 74 14 99 08/13/21 05:00 67 12 97/50 L 99 08/13/21 04:45 76 19 95 08/13/21 04:30 75 11 L 119/62 98 08/13/21 04:15 77 14 97 08/13/21 04:00 70 14 102/50 L 97 08/13/21 03:45 74 22 95 08/13/21 03:30 71 18 95 08/13/21 03:15 71 18 93 08/13/21 03:00 36.5 C 82 22 124/80 95 08/13/21 02:45 68 19 98 08/13/21 02:30 70 17 110/56 L 96 08/13/21 02:15 72 18 97 08/13/21 02:00 37.1 C 71 15 98/45 L 100 08/13/21 01:45 66 16 98 08/13/21 01:30 69 18 120/68 98 08/13/21 01:15 68 19 98 08/13/21 01:00 78 21 119/65 100 08/13/21 00:45 86 24 94 08/13/21 00:30 71 21 109/54 L 98 08/13/21 00:15 73 13 98 08/13/21 00:00 72 15 98/55 L 96 08/12/21 23:45 73 26 H 94 08/12/21 23:30 82 14 95 08/12/21 23:15 78 21 95 08/12/21 23:00 71 27 H 106/55 L 97 08/12/21 22:45 74 17 97 08/12/21 22:30 76 25 H 119/64 97 08/12/21 22:15 77 22 94 08/12/21 22:00 74 21 106/57 L 97 08/12/21 21:45 76 9 L 91 08/12/21 21:30 74 19 113/59 L 98 08/12/21 21:15 79 18 91 08/12/21 21:00 74 14 114/61 95 08/12/21 20:45 76 13 95 Critical Care Results & Data Vital Signs (Past 12 Hours) Vital Signs Temp Pulse Resp BP Pulse Ox 08/13/21 06:15 36.5 C 74 12 98 08/13/21 06:00 72 26 H 96/51 L 100 08/13/21 05:45 73 6 L 100 08/13/21 05:30 75 17 113/57 L 99 08/13/21 05:15 74 14 99 08/13/21 05:00 67 12 97/50 L 99 08/13/21 04:45 76 19 95 08/13/21 04:30 75 11 L 119/62 98 08/13/21 04:15 77 14 97 08/13/21 04:00 70 14 102/50 L 97 08/13/21 03:45 74 22 95 08/13/21 03:30 71 18 95 08/13/21 03:15 71 18 93 08/13/21 03:00 36.5 C 82 22 124/80 95 08/13/21 02:45 68 19 98 08/13/21 02:30 70 17 110/56 L 96 08/13/21 02:15 72 18 97 08/13/21 02:00 37.1 C 71 15 98/45 L 100 08/13/21 01:45 66 16 98 08/13/21 01:30 69 18 120/68 98 08/13/21 01:15 68 19 98 08/13/21 01:00 78 21 119/65 100 08/13/21 00:45 86 24 94 08/13/21 00:30 71 21 109/54 L 98 08/13/21 00:15 73 13 98 08/13/21 00:00 72 15 98/55 L 96 08/12/21 23:45 73 26 H 94 08/12/21 23:30 82 14 95 08/12/21 23:15 78 21 95 08/12/21 23:00 71 27 H 106/55 L 97 08/12/21 22:45 74 17 97 08/12/21 22:30 76 25 H 119/64 97 08/12/21 22:15 77 22 94 08/12/21 22:00 74 21 106/57 L 97 08/12/21 21:45 76 9 L 91 08/12/21 21:30 74 19 113/59 L 98 08/12/21 21:15 79 18 91 08/12/21 21:00 74 14 114/61 95 08/12/21 20:45 76 13 95 Lab & Micro Results (Past 24 Hours) No Data to Display No Data to Display No Data to Display Microbiology 08/11/21 07:17 Aerobic Blood Culture - Preliminary Blood Coag neg staph not lugdunensis Anaerobic Blood Culture - Preliminary Coag neg staph not lugdunensis 08/11/21 07:13 Aerobic Blood Culture - Preliminary Blood No growth in Aerobic bottle after 48 hours. Anaerobic Blood Culture - Preliminary Gram positive cocci in chains I & O Totals 24 Hours 08/12/21 08/13/21 08/14/21 06:59 06:59 06:59 Intake Total 2127.997 / 2149.277 21.28 / .28 Output Total 0 / 0 Balance 2127.997 / 2149.277 21. / .28 Cumulative 07/21/21 11:37 thru 08/13/21 07:00 Intake Total 68710.213 Output Total 1618 Balance 92981.213 RT Ventilator Mngmt (Last Documented) Ventilator Ordered Settings Ventilator Support Mode CPAP 08/11/21 10:35 Respiratory Rate 12 08/13/21 06:15 Ventilator Tidal Volume 420 08/11/21 08:00 Setting Minute Ventilation 9.3 08/11/21 10:35 Ventilator Positive Pressure 7 08/11/21 10:35 Support Setting Positive End Expiratory 5 08/11/21 10:35 Pressure Fraction of Inspired Oxygen 35 08/11/21 10:35 Machine Comment Placed on per Dr. Christianson. 08/11/21 10:35 Ventilator - PT Measurements Respiratory Rate 12 Exhaled Tidal Volume 490 Minute Ventilation 9.3 Peak Inspiratory Airway 16 Pressure Plateau Pressure 35 Respiratory Cycle Inspiratory: 1:1.8 Expiratory Ratio Inspiratory Phase Time 0.90 End-Tidal CO2 36 Static Lung Compliance 14.00 Dynamic Lung Compliance 44.55 Normal Static Lung Compliance 48.00 Patient Measurements Comment Extubated to 3L OM per Dr. Christianson. Coding Level of Care Code 51410 Subseq Hosp Care Lvl 3 Diagnoses Pneumonia due to 2019-nCoV U07.1; J12.82 ARDS (adult respiratory distress syndrome) J80 ESRD (end stage renal disease) on dialysis N18.6; Z99.2 Sepsis A41.9 Bacteremia R78.81
[2021-08-13] MEDS ORDERED: dexAMETHasone 4 MG in SYRINGE 0 ML IV SCH (09:00)
[2021-08-13] MEDS: PHENYLEPHRINE HCL 20 MG in DEXTROSE 5% 500 ML IV SCH (09:03)
[2021-08-13] MEDS: PROSOURCE NO CARB 30 ML/PKT OG SCH ×2 (09:05→15:38)
[2021-08-13 09:20] LABS: BUN Creatinine Ratio 7.2 (10-20); Calcium 10.9 mg/dl (8.5-10.1); Creatinine Clr Calc Pharmacy 14.8 ml/min; Est GFR (African American) 11.5 ml/min; Est GFR (Non-African American) 9.9 ml/min; Magnesium 2.8 mg/dl (1.8-2.4)
[2021-08-13 10:03] LABS: Phosphorus 9.3 mg/dl (2.5-4.9)
[2021-08-13] MEDS: CALCIUM CARBONATE 500 MG CHEWABLE TAB PO SCH (10:12)
[2021-08-13] MEDS: INSULIN GLARGINE SOLOSTAR 100 UNITS/ML 3 ML PEN SC SCH (10:13)
[2021-08-13] MEDS: NEPHROCAPS PO SCH (10:13)
[2021-08-13] MEDS: PANTOprazole 40 MG TAB PO SCH (10:14)
[2021-08-13] MEDS: VITAMIN B COMPLEX TAB PO SCH (10:14)
[2021-08-13] MEDS: ATORVASTATIN 40 MG TAB PO SCH (10:20)
[2021-08-13] MEDS: MIDODRINE HCL 2.5 MG TAB PO SCH ×3 (10:20→17:35)
[2021-08-13] MEDS: dexAMETHasone 2 MG in SYRINGE 0 ML IV SCH ×2 (10:21→11:51)
--- NOTE | 2021-08-13 10:35 | XRay Report ---
XR chest 1V portable CLINICAL HISTORY: Respiratory failure. COMPARISON STUDY: Chest radiograph August 12, 2021. FINDINGS: No pneumothorax or pleural effusion is noted. Cardiomegaly is unchanged. Extensive bilatera l airspace opacities have minimally increased since prior exam but remain significantly improved when compared to study of August 09, 2021. IMPRESSION: Extensive bilateral airspace opacities, slightly increased since chest radiograph of [facility] 2020. [place] 112: Negative or not required by law. Electronically signed by: Barrie Romero M.D. 08/13/2021 10:34 AM
[2021-08-13] MEDS ORDERED: DAPTOmycin 425 MG in SYRINGE 0 ML IV SCH (11:00)
--- NOTE | 2021-08-13 12:10 | Hospitalist Progress Note ---
Date of Service August 13, 2021 Assessment & Plan (1) Acute respiratory failure with hypoxia: Plan: due to severe COVID-19 pneumonia, developed into ARDS. Pulmonary edema likely contributing, dialysis on pressors with removal of 4 L Escalating oxygen requirements prompted progression to intubation on 08/08/2021- extubated 08/11 improved with volume off loading suggesting this is from pulmonary edema from hfpef from renal failure oxygen requirement improved, down to 5L today, has been as low as 2L completed 7 days of cefepime/doxy Remains on Dexamethasone, tapered to 2mg daily (2) Pneumonia due to 2019-nCoV: Plan: Patient's been on dexamethasone since admission, tapering dose now, he is on 2mgd not a candidate for Remdesivir treatment crp and procal were both high - finished 7 days of Cefepime/Doxy Did not meet criteria for baricitinib (3) Sinus bradycardia: Plan: dropped to 40's on morning of 07/30 EKG showed sinus rhythm, no block responded to Atropine 0.5mg IV push, no further doses needed Atropine is at the bedside PRN resumed at 25mg BID on 08/01, HR in 60-70's (4) ESRD (end stage renal disease) on dialysis: Plan: [facility] nephrology able to dialyze with the patient receiving intravenous pressors for blood pressure support tends to have abrupt pressure drops with dialysis and additionally has seen issues with what appears to be autonomic dysregulation and Covid patients sometimes requiring pressors or medication such as midodrine etc. typical HD schedule of M/W/F has had dialysis much more frequently due to volume overload HD on 08/09, 08/10, 08/11 and 08/12, no HD today, plan for it tomorrow (5) Anxiety: Plan: Seems to have panic attacks which negatively affect his respiratory state and status over has some encephalopathy post extubation we will continue to watch carefully and medicate sparingly (6) Acute respiratory distress syndrome (ARDS) due to 2019 novel coronavirus: Plan: was intubated 08/08-08/11 pulmonary medicine extubated and continues to manage down to 2L today (7) Nausea: Plan: Did have improvement with Reglan earlier in this stay (8) Diabetes mellitus type 2 in nonobese: Plan: controlled at this time novolog SSI lantus 8 units daily Glycemic management per pharmacy (9) Hyperparathyroidism: Plan: Secondary to ESRD Continue VELPHORO (10) Hypercholesterolemia: Plan: Continue atorvastatin LFTs nl this admission (11) Anemia due to chronic kidney disease: Plan: stable (12) DVT prophylaxis: Plan: heparin TID 07/21/2021 CTA chest neg for PE Admission and Anticipated Discharge Date Admission Date: July 23, 2021 Subjective patient doing well today, breathing comfortably on 5L, no distress at all no plans for HD today, will have it tomorrow d/w Dr. Oliva, he is off pressors, will downgrade to PCU status patient cleared by speech therapy for diet, will resume diet and oral medications denies fever, chills, chest pain, cough, nausea Review of Systems Review of Systems: All systems reviewed & are unremarkable except as noted in Subjective Physical Exam Physical Exam: General: well developed, well nourished, obese male, comfortable, no distress Neck: supple, trachea midline, normal thyroid Lungs: clear to auscultation bilaterally, normal respiratory effort, no tachypnea, no distress today Heart: regular rate, S1 and S2, no murmur, peripheral pulses normal, capillary refill normal, no edema, LUE fistula with thrill and bruit Abdomen: soft, NT, distended, + BS, no hepatomegaly, normal to percussion Extremities: normal in appearance, no cyanosis, no petechiae, + generalized weakness Neuro: awake, cooperative, moves all extremities, no focal motor deficits, CN II-XII intact, sensation in extremities intact, normal speech Skin: warm, dry, no rash, normal turgor Psych: Awake, alert oriented x 3, calm today Results & Data Results & Data ([facility]) Vital Signs (Past 12 Hours) Vital Signs Temp Pulse Resp BP Pulse Ox 08/13/21 11:15 65 98 08/13/21 11:00 75 118/67 99 08/13/21 10:45 83 100 08/13/21 10:30 74 126/70 97 08/13/21 10:15 82 19 100 08/13/21 10:00 72 15 93/57 L 100 08/13/21 09:45 73 14 100 08/13/21 09:30 76 16 91/54 L 100 08/13/21 09:15 76 18 96 08/13/21 09:00 77 15 105/52 L 98 08/13/21 08:45 78 14 99 08/13/21 08:30 74 15 105/52 L 96 08/13/21 08:15 78 15 98 08/13/21 08:00 72 15 113/57 L 98 08/13/21 07:45 72 15 96 08/13/21 07:30 74 16 109/59 L 97 08/13/21 07:15 84 20 92 08/13/21 07:00 73 15 108/60 100 08/13/21 06:45 77 16 99 08/13/21 06:30 70 14 102/53 L 100 08/13/21 06:15 36.5 C 74 12 98 08/13/21 06:00 72 26 H 96/51 L 100 08/13/21 05:45 73 6 L 100 08/13/21 05:30 75 17 113/57 L 99 08/13/21 05:15 74 14 99 08/13/21 05:00 67 12 97/50 L 99 08/13/21 04:45 76 19 95 08/13/21 04:30 75 11 L 119/62 98 08/13/21 04:15 77 14 97 08/13/21 04:00 70 14 102/50 L 97 08/13/21 03:45 74 22 95 08/13/21 03:30 71 18 95 08/13/21 03:15 71 18 93 08/13/21 03:00 36.5 C 82 22 124/80 95 08/13/21 02:45 68 19 98 08/13/21 02:30 70 17 110/56 L 96 08/13/21 02:15 72 18 97 08/13/21 02:00 37.1 C 71 15 98/45 L 100 08/13/21 01:45 66 16 98 08/13/21 01:30 69 18 120/68 98 08/13/21 01:15 68 19 98 08/13/21 01:00 78 21 119/65 100 08/13/21 00:45 86 24 94 08/13/21 00:30 71 21 109/54 L 98 08/13/21 00:15 73 13 98 Laboratory Results Laboratory Results - last 24 hr 08/12/21 08/12/21 08/12/21 13:06 14:27 17:53 WBC RBC Hgb Hct MCV MCH MCHC RDW Std Deviation RDW Coeff of Lisseth Plt Count MPV Immature Gran % (Auto) Neut % (Auto) Lymph % (Auto) [place] % (Auto) Eos % (Auto) Baso % (Auto) Neut # (Auto) Lymph # (Auto) [place] # (Auto) Eos # (Auto) Baso # (Auto) Immature Gran # (Auto) Absolute Nucleated RBC Nucleated RBC % (auto) Sodium Potassium Chloride Carbon Dioxide Anion Gap BUN Creatinine Est Cr Clr Drug Dosing Est GFR ( Amer) Est GFR (Non-Af Amer) BUN/Creatinine Ratio Glucose POC Glucose 109 H POC Glucose (other) 92 Calcium Phosphorus Magnesium Vit D 1,25-Dihyd Total Pending 1,25 Dihydroxy Vit D2 Pending 1,25 Dihydroxy Vit D3 Pending 08/12/21 08/13/21 08/13/21 23:54 06:07 08:18 WBC 7.09 RBC 3.62 L Hgb 10.3 L Hct 31.6 L MCV 87.3 MCH 28.5 MCHC 32.6 RDW Std Deviation 53.7 H RDW Coeff of Lisseth 17.2 H Plt Count 250 MPV 9.5 Immature Gran % (Auto) 1.3 Neut % (Auto) 78.9 Lymph % (Auto) 9.2 [place] % (Auto) 5.8 Eos % (Auto) 4.7 Baso % (Auto) 0.1 Neut # (Auto) 5.60 Lymph # (Auto) 0.65 L [place] # (Auto) 0.41 Eos # (Auto) 0.33 Baso # (Auto) 0.01 Immature Gran # (Auto) 0.09 H Absolute Nucleated RBC 0.02 H Nucleated RBC % (auto) 0.3 Sodium Potassium Chloride Carbon Dioxide Anion Gap BUN Creatinine Est Cr Clr Drug Dosing Est GFR ( Amer) Est GFR (Non-Af Amer) BUN/Creatinine Ratio Glucose POC Glucose 89 82 POC Glucose (other) Calcium Phosphorus Magnesium Vit D 1,25-Dihyd Total 1,25 Dihydroxy Vit D2 1,25 Dihydroxy Vit D3 08/13/21 08/13/21 08/13/21 08:18 09:11 12:06 WBC RBC Hgb Hct MCV MCH MCHC RDW Std Deviation RDW Coeff of Lisseth Plt Count MPV Immature Gran % (Auto) Neut % (Auto) Lymph % (Auto) [place] % (Auto) Eos % (Auto) Baso % (Auto) Neut # (Auto) Lymph # (Auto) [place] # (Auto) Eos # (Auto) Baso # (Auto) Immature Gran # (Auto) Absolute Nucleated RBC Nucleated RBC % (auto) Sodium 131 L Potassium 4.0 Chloride 90 L Carbon Dioxide 28 Anion Gap 13.0 H BUN 42 H Creatinine 5.80 H* D Est Cr Clr Drug Dosing 14.8 Est GFR ( Amer) 11.5 Est GFR (Non-Af Amer) 9.9 BUN/Creatinine Ratio 7.2 L Glucose 92 POC Glucose 83 88 POC Glucose (other) Calcium 10.9 H Phosphorus 9.3 H Magnesium 2.8 H Vit D 1,25-Dihyd Total 1,25 Dihydroxy Vit D2 1,25 Dihydroxy Vit D3 Medications Administered Current Inpatient Medications Acetaminophen (Acetaminophen Susp 325 Mg/10.15 Ml Udc) 650 mg PO Q6H PRN PRN Reason: Fever Stop: 09/08/21 23:27 Last Admin: 08/11/21 03:25 Dose: 650 mg Documented by: Atorvastatin Calcium (Atorvastatin 40 Mg Tab) [facility] Stop: 09/11/21 08:59 Last Admin: 08/13/21 10:20 Dose: 40 mg Documented by: Atropine Sulfate (Atropine Sulfate 0.1 Mg/Ml 10ml Syr) 0.5 mg IV .for use during dialysis PRN PRN Reason: HR < 60 with symptoms Stop: 08/30/21 08:11 Calcium Carbonate (Calcium Carbonate 500 Mg Chewable Tab) 500 mg PO TIDM [facility] Stop: 08/22/21 16:59 Last Admin: 08/13/21 10:12 Dose: Not Given Documented by: Dexamethasone (Dexamethasone 1 Mg Tab) 2 mg PO QAM [facility] Stop: 09/13/21 08:59 Dextrose (Dextrose 50% 50 Ml Syringe) 25 - 50 ml IV UD PRN; Protocol PRN Reason: Hypoglycemia Protocol Stop: 08/21/21 14:44 Glucagon (Glucagon For Inj 1 Mg Vial) 1 mg IM UD PRN; Protocol PRN Reason: Hypoglycemia Protocol Stop: 08/21/21 14:44 Glucose (Glucose 40% Gel 15 Gm Tube) 15 - 30 gm PO UD PRN; Protocol PRN Reason: Hypoglycemia Protocol Stop: 08/21/21 14:44 Glucose (Glucose 10 Tabs/Tube) 4 - 8 tabs PO UD PRN; Protocol PRN Reason: Hypoglycemia Protocol Stop: 08/21/21 14:44 Heparin Sodium (Porcine) (Heparin Sod 5,000 Unit/0.5 Ml Vial) 5,000 units SQ Q8 [facility] Stop: 08/21/21 21:59 Last Admin: 08/13/21 05:27 Dose: 5,000 units Documented by: Phenylephrine HCl 20 mg/ (Dextrose) 502 mls @ 0 mls/hr IV .Q0M [facility]; Protocol Stop: 09/10/21 13:29 Last Admin: 08/13/21 09:03 Dose: Not Given Documented by: Daptomycin 425 mg/ Syringe 8.5 mls @ 4.25 mls/min IV Q48H [facility]; Protocol Stop: 08/23/21 23:59 Last Admin: 08/13/21 11:50 Dose: 4.25 mls/min Documented by: Insulin Aspart (Insulin Aspart 100 Units/Ml 3 Ml Pen) 0 units SC Q6 [facility] Stop: 09/07/21 17:59 Last Admin: 08/13/21 06:13 Dose: Not Given Documented by: Insulin Glargine (Insulin Glargine Solostar 100 Units/Ml 3 Ml Pen) 8 units SC QAM [facility] Stop: 08/26/21 09:44 Last Admin: 08/13/21 10:13 Dose: Not Given Documented by: Midodrine (Midodrine Hcl 2.5 Mg Tab) 5 mg PO TID@0800,1200,1700 [facility] Stop: 09/11/21 11:59 Last Admin: 08/13/21 11:51 Dose: 5 mg Documented by: Miscellaneous (Carbohydrates For Hypoglycemia ) 15 - 30 gm PO UD PRN PRN Reason: Hypoglycemia Treatment Stop: 08/21/21 14:44 Miscellaneous Information (Daptomycin Consult Active) 1 ea N/A UD PRN PRN Reason: Consult Stop: 09/12/21 10:43 Velphoro ~ Non- Formulary Patient's Own Med 2 ea PO TIDM [facility] Stop: 09/12/21 11:59 Last Admin: 08/13/21 11:56 Dose: Not Given Documented by: Nutritional Formula (Prosource No Carb 30 Ml/Pkt) 30 ml OG TID [facility] Stop: 09/08/21 13:59 Last Admin: 08/13/21 09:05 Dose: Not Given Documented by: Ondansetron HCl (Ondansetron Inj 2 Mg/Ml 2 Ml Vial) 4 mg IV Q6H PRN PRN Reason: Nausea And Vomiting Stop: 08/24/21 14:10 Last Admin: 08/07/21 09:52 Dose: 4 mg Documented by: Pantoprazole Sodium (Pantoprazole 40 Mg Tab) 40 mg PO QAM [facility] Stop: 09/11/21 08:59 Last Admin: 08/13/21 10:14 Dose: Not Given Documented by: Sevelamer HCl (Sevelamer Hcl 800 Mg Tablet) 800 mg PO TIDM [facility] Stop: 08/31/21 11:59 Last Admin: 08/09/21 13:24 Dose: 800 mg Documented by: Sodium Chloride (Sodium Chloride 0.65% Na Soln 45 Ml ([place])) 1 sprays GABO QID PRN PRN Reason: Dryness Stop: 09/04/21 11:03 Vitamin B Complex (Vitamin B Complex Tab) 1 tab [facility] Stop: 08/21/21 08:59 Last Admin: 08/13/21 10:14 Dose: Not Given Documented by: Vitamin B Complex/Folic Acid (Nephrocaps) 1 cap [facility] Stop: 08/23/21 08:59 Last Admin: 08/13/21 10:13 Dose: Not Given Documented by: PG Care Time/CCT Total # of Minutes Spent Total Time Spent with Patient: Total time spent is greater than 50% in coordination of care (as documented) at patient's floor/unit and/or counseling patient: Coding Level of Care Code 68828 Subseq Hosp Care Lvl 3 Diagnoses Acute respiratory failure with hypoxia J96.01 Pneumonia due to 2019-nCoV U07.1; J12.82 Sinus bradycardia R00.1 ESRD (end stage renal disease) on dialysis N18.6; Z99.2 Anxiety F41.9 Acute respiratory distress syndrome (ARDS) due to 2019 novel coronavirus U07.1; J80 Nausea R11.0 Diabetes mellitus type 2 in nonobese E11.9 Hyperparathyroidism E21.3 Hypercholesterolemia E78.00 Anemia due to chronic kidney disease N18.9; D63.1 DVT prophylaxis Z29.9
--- NOTE | 2021-08-13 12:29 | Nephrology Progress Note ---
Date of Service August 13, 2021 Assessment & Plan (1) ESRD on hemodialysis: (2) History of kidney transplant: (3) Pneumonia due to COVID-19 virus: (4) ARDS (adult respiratory distress syndrome): (5) Acute respiratory failure with hypoxia: Plan: ESRD, on hemodialysis, Friday, Friday, Friday. Last dialysis was last Friday admitted to the hospital with respiratory failure with COVID pneumonia. Intubated on 08/09/21 after worsening respiratory status and 12 to 15 L high flow NC 02, but extubated on 08/11/21. . Respiratory status improved. Ca improved. -- Hold dialysis today, blood pressure, electrolyte acceptable. Had 2 L UF yesterday. -- Will tentatively plan for dialysis tomorrow -- ca slightly improved, pending PTH, vit D --left arm nephrology precaution, dose medications for GFR less than 10 Will follow Admission and Anticipated Discharge Date Admission Date: July 23, 2021 Ang Rodríguez was seen this morning. he was awake, alert, comfortable, oxygen saturation was 98% on just 2 L via nasal cannula. Electrolyte has been acceptable. Blood pressure well controlled. Review of Systems Constitutional: + weakness Physical Exam Physical Exam: Detect physical exam was not done considering COVID isolation, discussed over telephone with the patient. Constitutional: + ill appearing Respiratory: normal respiratory effort; no respiratory distress Auscultation: + diminished lung sounds and + rales Cardiovascular: RRR, no murmur, no edema Extremities: + AV fistula ( Left brachiocephalic AV fistula with thrill and bruit.) Neurologic: awake; no focal motor deficits Psychiatric: A+Ox3, euthymic affect Results & Data ([facility]) Vital Signs (Past 12 Hours) Vital Signs Temp Pulse Resp BP Pulse Ox 08/13/21 11:15 65 98 08/13/21 11:00 75 118/67 99 08/13/21 10:45 83 100 08/13/21 10:30 74 126/70 97 08/13/21 10:15 82 19 100 08/13/21 10:00 72 15 93/57 L 100 08/13/21 09:45 73 14 100 08/13/21 09:30 76 16 91/54 L 100 08/13/21 09:15 76 18 96 08/13/21 09:00 77 15 105/52 L 98 08/13/21 08:45 78 14 99 08/13/21 08:30 74 15 105/52 L 96 08/13/21 08:15 78 15 98 08/13/21 08:00 72 15 113/57 L 98 08/13/21 07:45 72 15 96 08/13/21 07:30 74 16 109/59 L 97 08/13/21 07:15 84 20 92 08/13/21 07:00 73 15 108/60 100 08/13/21 06:45 77 16 99 08/13/21 06:30 70 14 102/53 L 100 08/13/21 06:15 36.5 C 74 12 98 08/13/21 06:00 72 26 H 96/51 L 100 08/13/21 05:45 73 6 L 100 08/13/21 05:30 75 17 113/57 L 99 08/13/21 05:15 74 14 99 08/13/21 05:00 67 12 97/50 L 99 08/13/21 04:45 76 19 95 08/13/21 04:30 75 11 L 119/62 98 08/13/21 04:15 77 14 97 08/13/21 04:00 70 14 102/50 L 97 08/13/21 03:45 74 22 95 08/13/21 03:30 71 18 95 08/13/21 03:15 71 18 93 08/13/21 03:00 36.5 C 82 22 124/80 95 08/13/21 02:45 68 19 98 08/13/21 02:30 70 17 110/56 L 96 08/13/21 02:15 72 18 97 08/13/21 02:00 37.1 C 71 15 98/45 L 100 08/13/21 01:45 66 16 98 08/13/21 01:30 69 18 120/68 98 08/13/21 01:15 68 19 98 08/13/21 01:00 78 21 119/65 100 08/13/21 00:45 86 24 94 08/13/21 00:30 71 21 109/54 L 98 PG Care Time/CCT Total # of Minutes Spent Total Time Spent with Patient: Total time spent is greater than 50% in coordination of care (as documented) at patient's floor/unit and/or counseling patient: Coding Level of Care Code 53825 Subseq Hosp Care Lvl 2 Diagnoses ESRD on hemodialysis N18.6; Z99.2 History of kidney transplant Z94.0 Pneumonia due to COVID-19 virus U07.1; J12.82 ARDS (adult respiratory distress syndrome) J80 Acute respiratory failure with hypoxia J96.01
[2021-08-14] MEDS: HEPARIN SOD 5,000 UNIT/0.5 ML VIAL SQ SCH ×3 (05:50→21:29)
[2021-08-14 06:15] LABS: Basophils # (auto) 0.02 K/uL (0-0.2); Basophils % (auto) 0.4 %; Eosinophils # (auto) 0.27 K/uL (0-0.5); Eosinophils % (auto) 4.8 %; Hematocrit (blood only) 30.6 % (42-52); Hemoglobin 9.8 g/dL (14.0-18.0); Immature Granulocytes # (auto) 0.06 K/uL (0.00-0.02); Immature Granulocytes % (auto) 1.1 %; Lymphocytes # (auto) 0.83 K/uL (1.2-3.4); Lymphocytes % (auto) 14.7 %; Mean Corpuscular Hemoglobin 28.5 pg (25-34); Mean Platelet Volume 9.3 fL (7.4-10.4); Monocytes # (auto) 0.32 K/uL (0.11-0.59); Monocytes % (auto) 5.7 %; Neutrophils # (auto) 4.15 K/uL (1.4-6.5); Neutrophils % (auto) 73.3 %; Platelet Count 212 K/uL (130-400); RDW Coefficient of Variation 17.3 % (11.5-14.5); RDW Standard Deviation 54.2 fL (36.4-46.3); Red Blood Count 3.44 M/uL (4.7-6.1); White Blood Count 5.65 K/uL (4.8-10.8)
[2021-08-14 07:03] LABS: Calcium 10.4 mg/dl (8.5-10.1); Est GFR (African American) 7.2 ml/min; Est GFR (Non-African American) 6.2 ml/min; Magnesium 3.2 mg/dl (1.8-2.4); Potassium 3.9 mmol/L (3.5-5.1)
[2021-08-14] MEDS: SEVELAMER HCL 800 MG TABLET PO SCH ×4 (07:20→17:49)
[2021-08-14 07:29] LABS: Phosphorus 10.1 mg/dl (2.5-4.9)
[2021-08-14] MEDS: VELPHORO PO SCH ×3 (08:26→17:48)
[2021-08-14] MEDS: MIDODRINE HCL 2.5 MG TAB PO SCH ×3 (08:27→17:48)
[2021-08-14] MEDS: ATORVASTATIN 40 MG TAB PO SCH (08:27)
[2021-08-14] MEDS: dexAMETHasone 1 MG TAB PO SCH (08:27)
[2021-08-14] MEDS: ACETAMINOPHEN SUSP 325 MG/10.15 ML UDC PO PRN (08:27)
[2021-08-14] MEDS: VITAMIN B COMPLEX TAB PO SCH (08:27)
[2021-08-14] MEDS: NEPHROCAPS PO SCH (08:27)
[2021-08-14] MEDS: PANTOprazole 40 MG TAB PO SCH (08:27)
[2021-08-14] MEDS: INSULIN ASPART 100 UNITS/ML 3 ML PEN SC SCH ×4 (09:13→21:16)
[2021-08-14] MEDS: INSULIN GLARGINE SOLOSTAR 100 UNITS/ML 3 ML PEN SC SCH (09:14)
--- NOTE | 2021-08-14 10:22 | Nephrology Progress Note ---
Date of Service August 14, 2021 Assessment & Plan (1) ESRD on hemodialysis: (2) History of kidney transplant: (3) Pneumonia due to COVID-19 virus: (4) ARDS (adult respiratory distress syndrome): (5) Acute respiratory failure with hypoxia: Plan: ESRD, on hemodialysis, Friday, Friday, Friday. Last dialysis was last Friday admitted to the hospital with respiratory failure with COVID pneumonia. Intubated on 08/09/21 after worsening respiratory status and 12 to 15 L high flow NC 02, but extubated on 08/11/21. . Respiratory status improved. Ca improved. overall doing better, off bed to chair, participated briefly with physical therapy. --Hemodialysis today, aim for 2 L UF. --left arm nephrology precaution, dose medications for GFR less than 10 Will follow Admission and Anticipated Discharge Date Admission Date: July 23, 2021 Ang Rodríguez was seen and examined in this morning. He was sitting up in chair, having a little bit of has breakfast. still feels extremely tired. Review of Systems Constitutional: + weakness Physical Exam Constitutional: + ill appearing Respiratory: normal respiratory effort; no respiratory distress Auscultation: + diminished lung sounds and + rales Cardiovascular: RRR, no murmur, no edema Extremities: + AV fistula ( Left brachiocephalic AV fistula with thrill and bruit.) Neurologic: awake; no focal motor deficits Psychiatric: A+Ox3, euthymic affect Results & Data ([facility]) Vital Signs (Past 12 Hours) Vital Signs Temp Pulse Pulse Pulse Resp BP Pulse Ox 08/14/21 08:06 36.6 C 85 19 95 08/14/21 05:19 78 08/14/21 04:12 36.5 C 85 24 119/62 93 08/13/21 23:00 36.8 C 78 19 129/72 92 PG Care Time/CCT Total # of Minutes Spent Total Time Spent with Patient: Total time spent is greater than 50% in coordination of care (as documented) at patient's floor/unit and/or counseling patient: Coding Level of Care Code 72354 Subseq Hosp Care Lvl 2 Diagnoses ESRD on hemodialysis N18.6; Z99.2 History of kidney transplant Z94.0 Pneumonia due to COVID-19 virus U07.1; J12.82 ARDS (adult respiratory distress syndrome) J80 Acute respiratory failure with hypoxia J96.01
--- NOTE | 2021-08-14 10:39 | Hospitalist Progress Note ---
Date of Service August 14, 2021 Assessment & Plan (1) Acute respiratory failure with hypoxia: Plan: due to severe COVID-19 pneumonia, developed into ARDS. Pulmonary edema likely contributing, dialysis on pressors with removal of 4 L Escalating oxygen requirements prompted progression to intubation on 08/08/2021- extubated 08/11 improved with volume off loading suggesting this is from pulmonary edema from hfpef from renal failure oxygen requirement improved, he is 95% on 5L, could be lower after HD with UF today completed 7 days of cefepime/doxy Remains on Dexamethasone, tapered to 2mg daily for a few more days (2) Pneumonia due to 2019-nCoV: Plan: Patient's been on dexamethasone since admission, tapering dose now, he is on 2mg not a candidate for Remdesivir treatment crp and procal were both high - finished 7 days of Cefepime/Doxy Did not meet criteria for baricitinib (3) Sinus bradycardia: Plan: dropped to 40's on morning of 07/30 EKG showed sinus rhythm, no block responded to Atropine 0.5mg IV push, no further doses needed Atropine is at the bedside PRN resumed at 25mg BID on 08/01, HR in 60-70's (4) ESRD (end stage renal disease) on dialysis: Plan: [facility] [place] [facility] able to dialyze with the patient receiving intravenous pressors for blood pressure support tends to have abrupt pressure drops with dialysis and additionally has seen issues with what appears to be autonomic dysregulation and Covid patients sometimes requiring pressors or medication such as midodrine etc. typical HD schedule of M/W/ has had dialysis much more frequently due to volume overload HD on 08/09, 08/10, 08/11 and 08/12, had a break on 08/13, plan for HD today with goal UF of 2L (5) Anxiety: Plan: Seems to have panic attacks which negatively affect his respiratory state and status over has some encephalopathy post extubation we will continue to watch carefully and medicate sparingly (6) Acute respiratory distress syndrome (ARDS) due to 2019 novel coronavirus: Plan: was intubated 08/08-08/11 pulmonary medicine extubated and continues to manage stable on 5L today, could likely get lower after HD with UF (7) Nausea: Plan: Did have improvement with Reglan earlier in this stay (8) Diabetes mellitus type 2 in nonobese: Plan: controlled at this time novolog SSI lantus 8 units daily Glycemic management per pharmacy monitor for hypoglycemia, hyperglycemia, no issues (9) Hyperparathyroidism: Plan: Secondary to ESRD Continue VELPHORO (10) Hypercholesterolemia: Plan: Continue atorvastatin LFTs nl this admission (11) Anemia due to chronic kidney disease: Plan: stable (12) DVT prophylaxis: Plan: heparin TID 07/21/2021 CTA chest neg for PE Admission and Anticipated Discharge Date Admission Date: July 23, 2021 Subjective patient doing okay today, ate his breakfast, passing flatus, no BM kaur in place, very little urine output plan for HD today as he did not get it yesterday labs reviewed discussed that he is so weak that I would think he would need rehab however, could be difficult given that no SNF have beds he says his works at [employer], maybe she can have some pull to get him there Review of Systems Review of Systems: All systems reviewed & are unremarkable except as noted in Subjective Physical Exam 2 Physical Exam: General: well developed, well nourished, obese male, comfortable, no distress Neck: supple, trachea midline, normal thyroid Lungs: clear to auscultation bilaterally, normal respiratory effort, no tachypnea, no distress today Heart: regular rate, S1 and S2, no murmur, peripheral pulses normal, capillary refill normal, no edema, LUE fistula with thrill and bruit Abdomen: soft, NT, distended, + BS, no hepatomegaly, normal to percussion Extremities: normal in appearance, no cyanosis, no petechiae, + generalized weakness Neuro: awake, cooperative, moves all extremities, no focal motor deficits, CN II-XII intact, sensation in extremities intact, normal speech Skin: warm, dry, no rash, normal turgor Psych: Awake, alert oriented x 3, calm today Results & Data Results & Data ([facility]) Vital Signs (Past 12 Hours) Vital Signs Temp Pulse Pulse Pulse Resp BP Pulse Ox 08/14/21 08:06 36.6 C 85 19 95 08/14/21 05:19 78 08/14/21 04:12 36.5 C 85 24 119/62 93 08/13/21 23:00 36.8 C 78 19 129/72 92 Laboratory Results Laboratory Results - last 24 hr 08/11/21 08/11/21 08/13/21 13:14 13:14 12:06 WBC RBC Hgb Hct MCV MCH MCHC RDW Std Deviation RDW Coeff of Lisseth Plt Count MPV Immature Gran % (Auto) Neut % (Auto) Lymph % (Auto) [place] % (Auto) Eos % (Auto) Baso % (Auto) Neut # (Auto) Lymph # (Auto) [place] # (Auto) Eos # (Auto) Baso # (Auto) Immature Gran # (Auto) Sodium Potassium Chloride Carbon Dioxide Anion Gap BUN Creatinine Est Cr Clr Drug Dosing Est GFR ( Amer) Est GFR (Non-Af Amer) BUN/Creatinine Ratio Glucose POC Glucose 88 Calcium Phosphorus Magnesium 25-OH Vitamin D Total 12.2 L PTH Intact 1023.4 H 08/13/21 08/13/21 08/14/21 17:22 20:57 05:43 WBC 5.65 RBC 3.44 L Hgb 9.8 L Hct 30.6 L MCV 89.0 MCH 28.5 MCHC 32.0 RDW Std Deviation 54.2 H RDW Coeff of Lisseth 17.3 H Plt Count 212 MPV 9.3 Immature Gran % (Auto) 1.1 Neut % (Auto) 73.3 Lymph % (Auto) 14.7 [place] % (Auto) 5.7 Eos % (Auto) 4.8 Baso % (Auto) 0.4 Neut # (Auto) 4.15 Lymph # (Auto) 0.83 L [place] # (Auto) 0.32 Eos # (Auto) 0.27 Baso # (Auto) 0.02 Immature Gran # (Auto) 0.06 H Sodium Potassium Chloride Carbon Dioxide Anion Gap BUN Creatinine Est Cr Clr Drug Dosing Est GFR ( Amer) Est GFR (Non-Af Amer) BUN/Creatinine Ratio Glucose POC Glucose 122 H 124 H Calcium Phosphorus Magnesium 25-OH Vitamin D Total PTH Intact 08/14/21 08/14/21 05:43 08:05 WBC RBC Hgb Hct MCV MCH MCHC RDW Std Deviation RDW Coeff of Lisseth Plt Count MPV Immature Gran % (Auto) Neut % (Auto) Lymph % (Auto) [place] % (Auto) Eos % (Auto) Baso % (Auto) Neut # (Auto) Lymph # (Auto) [place] # (Auto) Eos # (Auto) Baso # (Auto) Immature Gran # (Auto) Sodium 129 L Potassium 3.9 Chloride 89 L Carbon Dioxide 29 Anion Gap 11.0 BUN 77 H D Creatinine 8.56 H* D Est Cr Clr Drug Dosing 10.0 Est GFR ( Amer) 7.2 Est GFR (Non-Af Amer) 6.2 BUN/Creatinine Ratio 9.0 L Glucose 103 H POC Glucose 76 Calcium 10.4 H Phosphorus 10.1 H Magnesium 3.2 H 25-OH Vitamin D Total PTH Intact Medications Administered Current Inpatient Medications Acetaminophen (Acetaminophen Susp 325 Mg/10.15 Ml Udc) 650 mg PO Q6H PRN PRN Reason: Fever Stop: 09/08/21 23:27 Last Admin: 08/14/21 08:27 Dose: 650 mg Documented by: Atorvastatin Calcium (Atorvastatin 40 Mg Tab) 40 mg PO [facility] Stop: 09/11/21 08:59 Last Admin: 08/14/21 08:27 Dose: 40 mg Documented by: Atropine Sulfate (Atropine Sulfate 0.1 Mg/Ml 10ml Syr) 0.5 mg IV .for use during dialysis PRN PRN Reason: HR < 60 with symptoms Stop: 08/30/21 08:11 Dexamethasone (Dexamethasone 1 Mg Tab) [facility] [place]: 09/13/21 08:59 Last Admin: 08/14/21 08:27 Dose: 2 mg Documented by: Dextrose (Dextrose 50% 50 Ml Syringe) 25 - 50 ml IV UD PRN; Protocol PRN Reason: Hypoglycemia Protocol Stop: 08/21/21 14:44 Glucagon (Glucagon For Inj 1 Mg Vial) 1 mg IM UD PRN; Protocol PRN Reason: Hypoglycemia Protocol Stop: 08/21/21 14:44 Glucose (Glucose 40% Gel 15 Gm Tube) 15 - 30 gm PO UD PRN; Protocol PRN Reason: Hypoglycemia Protocol Stop: 08/21/21 14:44 Glucose (Glucose 10 Tabs/Tube) 4 - 8 tabs PO UD PRN; Protocol PRN Reason: Hypoglycemia Protocol Stop: 08/21/21 14:44 Heparin Sodium (Porcine) (Heparin Sod 5,000 Unit/0.5 Ml Vial) 5,000 units SQ Q8 [facility] Stop: 08/21/21 21:59 Last Admin: 08/14/21 05:50 Dose: 5,000 units Documented by: Daptomycin 425 mg/ Syringe 8.5 mls @ 4.25 mls/min IV Q48H [facility]; Protocol Stop: 08/23/21 23:59 Last Admin: 08/13/21 11:50 Dose: 4.25 mls/min Documented by: Insulin Aspart (Insulin Aspart 100 Units/Ml 3 Ml Pen) 0 units SC ACHS [facility] Stop: 09/12/21 16:29 Last Admin: 08/14/21 09:13 Dose: Not Given Documented by: Insulin Glargine (Insulin Glargine Solostar 100 Units/Ml 3 Ml Pen) 8 units SC QAM [facility] Stop: 08/26/21 09:44 Last Admin: 08/14/21 09:14 Dose: 8 units Documented by: Midodrine (Midodrine Hcl 2.5 Mg Tab) 5 mg PO TID@0800,1200,1700 [facility] Stop: 09/11/21 11:59 Last Admin: 08/14/21 08:27 Dose: 5 mg Documented by: Miscellaneous (Carbohydrates For Hypoglycemia ) 15 - 30 gm PO UD PRN PRN Reason: Hypoglycemia Treatment Stop: 08/21/21 14:44 Miscellaneous Information (Daptomycin Consult Active) 1 ea N/A UD PRN PRN Reason: Consult Stop: 09/12/21 10:43 Velphoro ~ Non- Formulary Patient's Own Med 2 ea PO TIDM [facility] Stop: 09/12/21 11:59 Last Admin: 08/14/21 08:26 Dose: 2 ea Documented by: Ondansetron HCl (Ondansetron Inj 2 Mg/Ml 2 Ml Vial) 4 mg IV Q6H PRN PRN Reason: Nausea And Vomiting Stop: 08/24/21 14:10 Last Admin: 08/07/21 09:52 Dose: 4 mg Documented by: Pantoprazole Sodium (Pantoprazole 40 Mg Tab) 40 mg PO QAM [facility] Stop: 09/11/21 08:59 Last Admin: 08/14/21 08:27 Dose: 40 mg Documented by: Sevelamer HCl (Sevelamer Hcl 800 Mg Tablet) 800 mg PO TIDM [facility] Stop: 08/31/21 11:59 Last Admin: 08/14/21 08:27 Dose: 800 mg Documented by: Sodium Chloride (Sodium Chloride 0.65% Na Soln 45 Ml ([place])) 1 sprays GABO QID PRN PRN Reason: Dryness Stop: 09/04/21 11:03 Vitamin B Complex (Vitamin B Complex Tab) 1 tab PO QAM [facility] Stop: 08/21/21 08:59 Last Admin: 08/14/21 08:27 Dose: 1 tab Documented by: Vitamin B Complex/Folic Acid (Nephrocaps) 1 cap PO QAM [facility] Stop: 08/23/21 08:59 Last Admin: 08/14/21 08:27 Dose: 1 cap Documented by: PG Care Time/CCT Total # of Minutes Spent Total Time Spent with Patient: Total time spent is greater than 50% in coordination of care (as documented) at patient's floor/unit and/or counseling patient: Coding Level of Care Code 61865 Subseq Hosp Care Lvl 2 Diagnoses Acute respiratory failure with hypoxia J96.01 Pneumonia due to 2019-nCoV U07.1; J12.82 Sinus bradycardia R00.1 ESRD (end stage renal disease) on dialysis N18.6; Z99.2 Anxiety F41.9 Acute respiratory distress syndrome (ARDS) due to 2019 novel coronavirus U07.1; J80 Nausea R11.0 Diabetes mellitus type 2 in nonobese E11.9 Hyperparathyroidism E21.3 Hypercholesterolemia E78.00 Anemia due to chronic kidney disease N18.9; D63.1 DVT prophylaxis Z29.9
[2021-08-15] MEDS: HEPARIN SOD 5,000 UNIT/0.5 ML VIAL SQ SCH ×3 (06:18→20:56)
[2021-08-15 06:25] LABS: Basophils # (auto) 0.02 K/uL (0-0.2); Basophils % (auto) 0.3 %; Eosinophils # (auto) 0.33 K/uL (0-0.5); Eosinophils % (auto) 5.7 %; Hematocrit (blood only) 32.7 % (42-52); Hemoglobin 10.5 g/dL (14.0-18.0); Immature Granulocytes # (auto) 0.04 K/uL (0.00-0.02); Immature Granulocytes % (auto) 0.7 %; Mean Corpuscular Hemoglobin 28.4 pg (25-34); Mean Corpuscular Hgb Conc 32.1 g/dL (32-36); Mean Corpuscular Volume 88.4 fL (80-100); Mean Platelet Volume 9.1 fL (7.4-10.4); Monocytes # (auto) 0.38 K/uL (0.11-0.59); Monocytes % (auto) 6.5 %; Neutrophils # (auto) 4.35 K/uL (1.4-6.5); Neutrophils % (auto) 74.8 %; Nucleated RBC # (auto) 0.03 K/uL (0-0); Nucleated RBC % (auto) 0.5 %; Platelet Count 251 K/uL (130-400); RDW Standard Deviation 55.3 fL (36.4-46.3); White Blood Count 5.82 K/uL (4.8-10.8)
[2021-08-15 07:16] LABS: BUN Creatinine Ratio 7.4 (10-20); Calcium 11.1 mg/dl (8.5-10.1); Creatinine Clr Calc Pharmacy 13.3 ml/min; Est GFR (African American) 11.3 ml/min; Est GFR (Non-African American) 9.7 ml/min; Magnesium 2.7 mg/dl (1.8-2.4); Phosphorus 7.4 mg/dl (2.5-4.9); Potassium 3.5 mmol/L (3.5-5.1)
[2021-08-15] MEDS: INSULIN ASPART 100 UNITS/ML 3 ML PEN SC SCH ×4 (08:52→20:12)
[2021-08-15] MEDS: INSULIN GLARGINE SOLOSTAR 100 UNITS/ML 3 ML PEN SC SCH (09:12)
[2021-08-15] MEDS: VELPHORO PO SCH ×3 (09:25→17:51)
[2021-08-15] MEDS: NEPHROCAPS PO SCH (09:26)
[2021-08-15] MEDS: SEVELAMER HCL 800 MG TABLET PO SCH ×3 (09:26→17:49)
[2021-08-15] MEDS: dexAMETHasone 1 MG TAB PO SCH (09:26)
[2021-08-15] MEDS: VITAMIN B COMPLEX TAB PO SCH (09:26)
[2021-08-15] MEDS: MIDODRINE HCL 2.5 MG TAB PO SCH ×3 (09:26→17:49)
[2021-08-15] MEDS: ATORVASTATIN 40 MG TAB PO SCH (09:26)
[2021-08-15] MEDS: PANTOprazole 40 MG TAB PO SCH (09:26)
--- NOTE | 2021-08-15 09:59 | Hospitalist Progress Note ---
Date of Service August 15, 2021 Assessment & Plan (1) Acute respiratory failure with hypoxia: Plan: due to severe COVID-19 pneumonia, developed into ARDS. Pulmonary edema likely contributing, dialysis on pressors with removal of 4 L Escalating oxygen requirements prompted progression to intubation on 08/08/2021- extubated 08/11 improved with volume off loading suggesting this is from pulmonary edema from hfpef from renal failure oxygen requirement improved, he is on 2L, 92% completed 7 days of cefepime/doxy Remains on Dexamethasone, tapered to 2mg daily for a few more days (2) Pneumonia due to 2019-nCoV: Plan: Patient's been on dexamethasone since admission, tapering dose now, he is on 2mg was not a candidate for Remdesivir treatment crp and procal were both high - finished 7 days of Cefepime/Doxy Did not meet criteria for baricitinib (3) Sinus bradycardia: Plan: dropped to 40's on morning of 07/30 EKG showed sinus rhythm, no block responded to Atropine 0.5mg IV push, no further doses needed Atropine is at the bedside PRN resumed at 25mg BID on 08/01, HR in 60-70's (4) ESRD (end stage renal disease) on dialysis: Plan: [facility] able to dialyze with the patient receiving intravenous pressors for blood pressure support tends to have abrupt pressure drops with dialysis and additionally has seen issues with what appears to be autonomic dysregulation and Covid patients sometimes requiring pressors or medication such as midodrine etc. typical HD schedule of M/W/F has had dialysis much more frequently due to volume overload HD on 08/09, 08/10, 08/11 and 08/12, had a break on 08/13 HD on 08/14 with UF of 1764, tolerated well until last 20 minutes when he got hypotensive and light headed electrolytes stable today (5) Anxiety: Plan: Seems to have panic attacks which negatively affect his respiratory state and status over has some encephalopathy post extubation cautious with Ativan (6) Acute respiratory distress syndrome (ARDS) due to 2019 novel coronavirus: Plan: was intubated 08/08-08/11 pulmonary medicine extubated and continues to manage stable on 2L today, he is 90%, can titrate down oxygen (7) Nausea: Plan: Did have improvement with Reglan earlier in this stay no complaints now (8) Diabetes mellitus type 2 in nonobese: Plan: controlled at this time novolog SSI lantus 8 units daily Glycemic management per pharmacy monitor for hypoglycemia, hyperglycemia, no issues (9) Hyperparathyroidism: Plan: Secondary to ESRD Continue VELPHORO (10) Hypercholesterolemia: Plan: Continue atorvastatin LFTs nl this admission (11) Anemia due to chronic kidney disease: Plan: stable (12) DVT prophylaxis: Plan: heparin TID 07/21/2021 CTA chest neg for PE Plan: PT OT consults, he is very weak from prolonged hospitalization need to work towards rehab, SNF placement he says his works at [employer] Admission and Anticipated Discharge Date Admission Date: July 23, 2021 Subjective patient says he is feeling great, tolerated HD yesterday, UF of 1700mL electrolytes stable, breathing well on 2L, no cough eating well, waiting on having a BM appreciate note from Dr. Awad will move patient out of COVID unit to medical floor work on getting him to SNF for rehab Review of Systems Review of Systems: All systems reviewed & are unremarkable except as noted in Subjective Constitutional: + fatigue and + weakness Respiratory: + dyspnea on exertion Physical Exam Physical Exam: General: well developed, well nourished, obese male, c omfortable, no distress Neck: supple, trachea midline, normal thyroid Lungs: clear to auscultation bilaterally, normal respiratory effort, no tachypnea, no distress today Heart: regular rate, S1 and S2, no murmur, peripheral pulses normal, capillary refill normal, no edema, LUE fistula with thrill and bruit Abdomen: soft, NT, distended, + BS, no hepatomegaly, normal to percussion Extremities: normal in appearance, no cyanosis, no petechiae, + generalized weakness Neuro: awake, cooperative, moves all extremities, no focal motor deficits, CN II-XII intact, sensation in extremities intact, normal speech Skin: warm, dry, no rash, normal turgor Psych: Awake, alert oriented x 3, calm today Results & Data Results & Data ([facility]) Vital Signs (Past 12 Hours) Vital Signs Temp Pulse Pulse Resp BP BP Pulse Ox 08/15/21 06:51 36.5 C 80 18 128/61 100 08/15/21 06:15 80 100 08/15/21 06:00 82 100 08/15/21 05:45 86 95 08/15/21 05:30 85 98 08/15/21 05:15 78 94 08/15/21 05:00 80 91 08/15/21 04:50 36.5 C 84 20 111/53 L 93 08/15/21 04:45 85 99 08/15/21 04:30 78 97 08/15/21 04:15 79 97 08/15/21 04:00 84 91 08/15/21 03:45 82 99 08/15/21 03:30 79 98 08/15/21 03:15 84 100 08/15/21 03:00 79 96 08/15/21 02:45 84 91 08/15/21 02:30 81 99 08/15/21 02:15 81 99 08/15/21 02:00 77 97 08/15/21 01:45 84 95 08/15/21 01:30 78 96 08/15/21 01:15 82 98 08/15/21 01:00 84 92 08/15/21 00:45 81 96 08/15/21 00:30 82 97 08/15/21 00:15 84 94 08/15/21 00:00 83 88/48 L 97 08/14/21 23:45 87 87 L 08/14/21 23:30 86 97 08/14/21 23:15 85 97 08/14/21 23:00 89 97 08/14/21 22:45 87 98 08/14/21 22:30 94 H 100 08/14/21 22:15 100 H 100 08/14/21 22:00 90 99 Laboratory Results Laboratory Results - last 24 hr 08/14/21 08/14/21 08/14/21 11:43 16:38 20:17 WBC RBC Hgb Hct MCV MCH MCHC RDW Std Deviation RDW Coeff of Lisseth Plt Count MPV Immature Gran % (Auto) Neut % (Auto) Lymph % (Auto) Stanley % (Auto) Eos % (Auto) Baso % (Auto) Neut # (Auto) Lymph # (Auto) [place] # (Auto) Eos # (Auto) Baso # (Auto) Immature Gran # (Auto) Absolute Nucleated RBC Nucleated RBC % (auto) Sodium Potassium Chloride Carbon Dioxide Anion Gap BUN Creatinine Est Cr Clr Drug Dosing Est GFR ( Amer) Est GFR (Non-Af Amer) BUN/Creatinine Ratio Glucose POC Glucose 125 H 130 H 125 H Calcium Phosphorus Magnesium Total Creatine Kinase 08/15/21 08/15/21 08/15/21 05:43 05:43 08:00 WBC 5.82 RBC 3.70 L Hgb 10.5 L Hct 32.7 L MCV 88.4 MCH 28.4 MCHC 32.1 RDW Std Deviation 55.3 H RDW Coeff of Lisseth 18.0 H Plt Count 251 MPV 9.1 Immature Gran % (Auto) 0.7 Neut % (Auto) 74.8 Lymph % (Auto) 12.0 Stanley % (Auto) 6.5 Eos % (Auto) 5.7 Baso % (Auto) 0.3 Neut # (Auto) 4.35 Lymph # (Auto) 0.70 L Stanley # (Auto) 0.38 Eos # (Auto) 0.33 Baso # (Auto) 0.02 Immature Gran # (Auto) 0.04 H Absolute Nucleated RBC 0.03 H Nucleated RBC % (auto) 0.5 Sodium 133 L Potassium 3.5 Chloride 93 L Carbon Dioxide 26 Anion Gap 14.0 H BUN 44 H Creatinine 5.91 H* D Est Cr Clr Drug Dosing 13.3 Est GFR ( Amer) 11.3 Est GFR (Non-Af Amer) 9.7 BUN/Creatinine Ratio 7.4 L Glucose 90 POC Glucose 107 H Calcium 11.1 H Phosphorus 7.4 H D Magnesium 2.7 H Total Creatine Kinase 173 Medications Administered Current Inpatient Medications Acetaminophen (Acetaminophen Susp 325 Mg/10.15 Ml Udc) 650 mg PO Q6H PRN PRN Reason: Fever Stop: 09/08/21 23:27 Last Admin: 08/14/21 08:27 Dose: 650 mg Documented by: Atorvastatin Calcium (Atorvastatin 40 Mg Tab) 40 mg PO [facility] Stop: 09/11/21 08:59 Last Admin: 08/15/21 09:26 Dose: 40 mg Documented by: Atropine Sulfate (Atropine Sulfate 0.1 Mg/Ml 10ml Syr) 0.5 mg IV .for use during dialysis PRN PRN Reason: HR < 60 with symptoms Stop: 08/30/21 08:11 Dexamethasone (Dexamethasone 1 Mg Tab) [facility] [place] Stop: 09/13/21 08:59 Last Admin: 08/15/21 09:26 Dose: 2 mg Documented by: Dextrose (Dextrose 50% 50 Ml Syringe) 25 - 50 ml IV UD PRN; Protocol PRN Reason: Hypoglycemia Protocol Stop: 08/21/21 14:44 Glucagon (Glucagon For Inj 1 Mg Vial) 1 mg IM UD PRN; Protocol PRN Reason: Hypoglycemia Protocol Stop: 08/21/21 14:44 Glucose (Glucose 40% Gel 15 Gm Tube) 15 - 30 gm PO UD PRN; Protocol PRN Reason: Hypoglycemia Protocol Stop: 08/21/21 14:44 Glucose (Glucose 10 Tabs/Tube) 4 - 8 tabs PO UD PRN; Protocol PRN Reason: Hypoglycemia Protocol Stop: 08/21/21 14:44 Heparin Sodium (Porcine) (Heparin Sod 5,000 Unit/0.5 Ml Vial) 5,000 units SQ Q8 [facility] Stop: 08/21/21 21:59 Last Admin: 08/15/21 06:18 Dose: 5,000 units Documented by: Daptomycin 425 mg/ Syringe 8.5 mls @ 4.25 mls/min IV Q48H [facility]; Protocol Stop: 08/23/21 23:59 Last Admin: 08/13/21 11:50 Dose: 4.25 mls/min Documented by: Insulin Aspart (Insulin Aspart 100 Units/Ml 3 Ml Pen) 0 units SC ACHS [facility] Stop: 09/12/21 16:29 Last Admin: 08/15/21 08:52 Dose: Not Given Documented by: Insulin Glargine (Insulin Glargine Solostar 100 Units/Ml 3 Ml Pen) 8 units SC QAM [facility] Stop: 08/26/21 09:44 Last Admin: 08/15/21 09:12 Dose: 8 units Documented by: Midodrine (Midodrine Hcl 2.5 Mg Tab) 5 mg PO TID@0800,1200,1700 [facility] Stop: 09/11/21 11:59 Last Admin: 08/15/21 09:26 Dose: 5 mg Documented by: Miscellaneous (Carbohydrates For Hypoglycemia ) 15 - 30 gm PO UD PRN PRN Reason: Hypoglycemia Treatment Stop: 08/21/21 14:44 Miscellaneous Information (Daptomycin Consult Active) 1 ea N/A UD PRN PRN Reason: Consult Stop: 09/12/21 10:43 Velphoro ~ Non- Formulary Patient's Own Med 2 ea PO TIDM [facility] Stop: 09/12/21 11:59 Last Admin: 08/15/21 09:25 Dose: 2 ea Documented by: Ondansetron HCl (Ondansetron Inj 2 Mg/Ml 2 Ml Vial) 4 mg IV Q6H PRN PRN Reason: Nausea And Vomiting Stop: 08/24/21 14:10 Last Admin: 08/07/21 09:52 Dose: 4 mg Documented by: Pantoprazole Sodium (Pantoprazole 40 Mg Tab) 40 mg PO QAM [facility] Stop: 09/11/21 08:59 Last Admin: 08/15/21 09:26 Dose: 40 mg Documented by: Sevelamer HCl (Sevelamer Hcl 800 Mg Tablet) 800 mg PO TIDM [facility] Stop: 08/31/21 11:59 Last Admin: 08/15/21 09:26 Dose: 800 mg Documented by: Sodium Chloride (Sodium Chloride 0.65% Na Soln 45 Ml ([place])) 1 sprays GABO QID PRN PRN Reason: Dryness Stop: 09/04/21 11:03 Vitamin B Complex (Vitamin B Complex Tab) [facility] [place] Stop: 08/21/21 08:59 Last Admin: 08/15/21 09:26 Dose: 1 tab Documented by: Vitamin B Complex/Folic Acid (Nephrocaps) 1 cap [facility] [place] Stop: 08/23/21 08:59 Last Admin: 08/15/21 09:26 Dose: 1 cap Documented by: PG Care Time/CCT Total # of Minutes Spent Total Time Spent with Patient: Total time spent is greater than 50% in coordination of care (as documented) at patient's floor/unit and/or counseling patient: Coding Level of Care Code 55520 Subseq Hosp Care Lvl 2 Diagnoses Acute respiratory failure with hypoxia J96.01 Pneumonia due to 2019-nCoV U07.1; J12.82 Sinus bradycardia R00.1 ESRD (end stage renal disease) on dialysis N18.6; Z99.2 Anxiety F41.9 Acute respiratory distress syndrome (ARDS) due to 2019 novel coronavirus U07.1; J80 Nausea R11.0 Diabetes mellitus type 2 in nonobese E11.9 Hyperparathyroidism E21.3 Hypercholesterolemia E78.00 Anemia due to chronic kidney disease N18.9; D63.1 DVT prophylaxis Z29.9
--- NOTE | 2021-08-15 10:28 | Nephrology Progress Note ---
Date of Service August 15, 2021 Assessment & Plan (1) ESRD (end stage renal disease) on dialysis: (2) History of kidney transplant: (3) Hypertension: (4) Acute respiratory failure with hypoxia: (5) COVID-19: Plan: ESRD, on hemodialysis, Friday, Friday, Friday.Admitted to the hospital with respiratory failure with COVID pneumonia. Intubated on 08/09/21 after worsening respiratory status and 12 to 15 L high flow NC 02, but extubated on 08/11/21. . Respiratory status improved. Ca improved. Overall doing much better. --had dialysis yesterday, blood pressure, electrolyte acceptable. Had 2 L UF yesterday. --Will tentatively plan for dialysis tomorrow -- ca high with elevated PTH --start on sensipar 30 mg po /d --left arm nephrology precaution, dose medications for GFR less than 10 Will follow Admission and Anticipated Discharge Date Admission Date: July 23, 2021 Ang Rodríguez was seen and examined in this morning. He was sitting up in bed, reports feeling much better, appetite better, had HD yesterday. Review of Systems Constitutional: + weakness Physical Exam Constitutional: + ill appearing Respiratory: normal respiratory effort; no respiratory distress Auscultation: + diminished lung sounds and + rales Cardiovascular: RRR, no murmur, no edema Extremities: + AV fistula ( Left brachiocephalic AV fistula with thrill and bruit.) Neurologic: awake; no focal motor deficits Psychiatric: A+Ox3, euthymic affect Results & Data ([facility]) Vital Signs (Past 12 Hours) Vital Signs Temp Pulse Pulse Resp BP BP Pulse Ox 08/15/21 06:51 36.5 C 80 18 128/61 100 08/15/21 06:15 80 100 08/15/21 06:00 82 100 08/15/21 05:45 86 95 08/15/21 05:30 85 98 08/15/21 05:15 78 94 08/15/21 05:00 80 91 08/15/21 04:50 36.5 C 84 20 111/53 L 93 08/15/21 04:45 85 99 08/15/21 04:30 78 97 08/15/21 04:15 79 97 08/15/21 04:00 84 91 08/15/21 03:45 82 99 08/15/21 03:30 79 98 08/15/21 03:15 84 100 08/15/21 03:00 79 96 08/15/21 02:45 84 91 08/15/21 02:30 81 99 08/15/21 02:15 81 99 08/15/21 02:00 77 97 08/15/21 01:45 84 95 08/15/21 01:30 78 96 08/15/21 01:15 82 98 08/15/21 01:00 84 92 08/15/21 00:45 81 96 08/15/21 00:30 82 97 08/15/21 00:15 84 94 08/15/21 00:00 83 88/48 L 97 08/14/21 23:45 87 87 L 08/14/21 23:30 86 97 08/14/21 23:15 85 97 08/14/21 23:00 89 97 08/14/21 22:45 87 98 08/14/21 22:30 94 H 100 PG Care Time/CCT Total # of Minutes Spent Total Time Spent with Patient: Total time spent is greater than 50% in coordination of care (as documented) at patient's floor/unit and/or counseling patient: Coding Level of Care Code 00576 Subseq Hosp Care Lvl 2 Diagnoses ESRD (end stage renal disease) on dialysis N18.6; Z99.2 History of kidney transplant Z94.0 Hypertension I10 Acute respiratory failure with hypoxia J96.01 COVID-19 U07.1
[2021-08-15] MEDS: CINACALCET HCL 30 MG TAB PO SCH (12:32)
[2021-08-15] MEDS: AMPICILLIN 2,000 MG in SODIUM CHLOR 0.9% AD-VAN 100 ML IV SCH (20:56)
[2021-08-15] MEDS: ACETAMINOPHEN SUSP 325 MG/10.15 ML UDC PO PRN (20:56)
[2021-08-16] MEDS: HEPARIN SOD 5,000 UNIT/0.5 ML VIAL SQ SCH ×3 (05:32→22:07)
[2021-08-16] MEDS: INSULIN ASPART 100 UNITS/ML 3 ML PEN SC SCH ×4 (08:55→21:53)
[2021-08-16] MEDS: INSULIN GLARGINE SOLOSTAR 100 UNITS/ML 3 ML PEN SC SCH (08:56)
[2021-08-16] MEDS: PANTOprazole 40 MG TAB PO SCH (09:00)
[2021-08-16] MEDS: VELPHORO PO SCH ×3 (09:00→17:28)
[2021-08-16] MEDS: dexAMETHasone 1 MG TAB PO SCH (09:00)
[2021-08-16] MEDS: ATORVASTATIN 40 MG TAB PO SCH (09:00)
[2021-08-16] MEDS: CINACALCET HCL 30 MG TAB PO SCH (09:00)
[2021-08-16] MEDS: VITAMIN B COMPLEX TAB PO SCH (09:00)
[2021-08-16] MEDS: NEPHROCAPS PO SCH (09:00)
[2021-08-16] MEDS: SEVELAMER HCL 800 MG TABLET PO SCH ×3 (09:01→17:28)
[2021-08-16] MEDS: MIDODRINE HCL 2.5 MG TAB PO SCH ×3 (09:01→17:29)
--- NOTE | 2021-08-16 09:35 | Nephrology Progress Note ---
Date of Service August 16, 2021 Assessment & Plan (1) ESRD (end stage renal disease) on dialysis: (2) History of kidney transplant: (3) Hypertension: (4) Acute respiratory failure with hypoxia: (5) COVID-19: Plan: ESRD, on hemodialysis, Friday, Friday, Friday.Admitted to the hospital with respiratory failure with COVID pneumonia. Intubated on 08/09/21 after worsening respiratory status and 12 to 15 L high flow NC 02, but extubated on 08/11/21. . Respiratory status improved. Overall doing much better. Blood pressure, electrolyte acceptable. --dialysis today -- ca high with elevated PTH --continue on phos binder, Sensipar 30 mg po /d --left arm nephrology precaution, dose medications for GFR less than 10 Will follow Admission and Anticipated Discharge Date Admission Date: July 23, 2021 Subjective Marcos has been doing much better, now on just 2 L NC 02, appetite better. BP stable. Physical Exam Physical Exam: Record reviewed, direct physical exam was not done today due to COVID isolation. Results & Data ([facility]) Vital Signs (Past 12 Hours) Vital Signs Temp Pulse Pulse Pulse Resp BP Pulse Ox 08/16/21 07:08 36.5 C 82 18 127/73 93 08/16/21 06:07 93 08/16/21 03:58 36.6 C 89 18 114/70 96 08/16/21 01:28 20 94 08/15/21 23:52 90 08/15/21 23:20 36.6 C 97 H 18 144/75 H 92 PG Care Time/CCT Total # of Minutes Spent Total Time Spent with Patient: Total time spent is greater than 50% in coordination of care (as documented) at patient's floor/unit and/or counseling patient: Coding Level of Care Code 16513 Subseq Hosp Care Lvl 2 Diagnoses ESRD (end stage renal disease) on dialysis N18.6; Z99.2 History of kidney transplant Z94.0 Hypertension I10 Acute respiratory failure with hypoxia J96.01 COVID-19 U07.1
[2021-08-16] MEDS: ONDANSETRON INJ 2 MG/ML 2 ML VIAL IV PRN (12:15)
--- NOTE | 2021-08-16 16:30 | Hospitalist Progress Note ---
Date of Service August 16, 2021 Assessment & Plan (1) Acute respiratory failure with hypoxia: Plan: due to severe COVID-19 pneumonia, developed into ARDS. Pulmonary edema likely contributing, dialysis on pressors with removal of 4 L Escalating oxygen requirements prompted progression to intubation on 08/08/2021- extubated 08/11 improved with volume off loading suggesting this is from pulmonary edema from hfpef from renal failure oxygen requirement improved, he is on 2L, 92% completed 7 days of cefepime/doxy Remains on Dexamethasone, tapered to 2mg daily for a few more days, stop tomorrow (2) Pneumonia due to 2019-nCoV: Plan: Patient's been on dexamethasone since admission, tapering dose now, he is on 2mg, stop after tomorrow morning was not a candidate for Remdesivir treatment crp and procal were both high - finished 7 days of Cefepime/Doxy Did not meet criteria for baricitinib (3) Sinus bradycardia: Plan: dropped to 40's on morning of 07/30 EKG showed sinus rhythm, no block responded to Atropine 0.5mg IV push, no further doses needed Atropine is at the bedside PRN resumed at 25mg BID on 08/01, HR in 60-70's (4) ESRD (end stage renal disease) on dialysis: Plan: [facility] nephrology able to dialyze with the patient receiving intravenous pressors for blood pressure support tends to have abrupt pressure drops with dialysis and additionally has seen issues with what appears to be autonomic dysregulation and Covid patients sometimes requiring pressors or medication such as midodrine etc. typical HD schedule of M/W/F has had dialysis much more frequently due to volume overload HD on 08/09, 08/10, 08/11 and 08/12, had a break on 08/13 HD on 08/14 with UF of 1764, tolerated well until last 20 minutes when he got hypotensive and light headed electrolytes stable today (5) Anxiety: Plan: Seems to have panic attacks which negatively affect his respiratory state and status over has some encephalopathy post extubation cautious with Ativan (6) Acute respiratory distress syndrome (ARDS) due to 2019 novel coronavirus: Plan: was intubated 08/08-08/11 pulmonary medicine extubated and continues to manage stable on 2L today, he is 90%, can titrate down oxygen (7) Nausea: Plan: Did have improvement with Reglan earlier in this stay no complaints now (8) Diabetes mellitus type 2 in nonobese: Plan: controlled at this time novolog SSI lantus 8 units daily Glycemic management per pharmacy monitor for hypoglycemia, hyperglycemia, no issues (9) Hyperparathyroidism: Plan: Secondary to ESRD Continue VELPHORO (10) Hypercholesterolemia: Plan: Continue atorvastatin LFTs nl this admission (11) Anemia due to chronic kidney disease: Plan: stable (12) DVT prophylaxis: Plan: heparin TID 07/21/2021 CTA chest neg for PE Plan: PT OT consults, he is very weak from prolonged hospitalization need to work towards rehab, SNF placement he says his works at [employer] Admission and Anticipated Discharge Date Admission Date: July 23, 2021 Subjective patient had HD today, had to cut short due to low BP and light headed sensation UF was only 900mL will d/w Dr. Titus, could maybe consider increasing Midodrine to 10mg TID, specifically on HD days patient eating okay, no nausea or vomiting, no diarrhea Review of Systems Review of Systems: All systems reviewed & are unremarkable except as noted in Subjective Cardiovascular: + lightheadedness (at the end of dialysis) Physical Exam Physical Exam: General: well developed, well nourished, obese male, comfortable, no distress Neck: supple, trachea midline, normal thyroid Lungs: clear to auscultation bilaterally, normal respiratory effort, no tachypnea, no distress today Heart: regular rate, S1 and S2, no murmur, peripheral pulses normal, capillary refill normal, no edema, LUE fistula with thrill and bruit Abdomen: soft, NT, distended, + BS, no hepatomegaly, normal to percussion Extremities: normal in appearance, no cyanosis, no petechiae, + generalized weakness Neuro: awake, cooperative, moves all extremities, no focal motor deficits, CN II-XII intact, sensation in extremities intact, normal speech Skin: warm, dry, no rash, normal turgor Psych: Awake, alert oriented x 3, calm today Results & Data Results & Data ([facility]) Vital Signs (Past 12 Hours) Vital Signs Temp Pulse Pulse Pulse Resp BP BP 08/16/21 15:40 98 H 107/45 L 08/16/21 15:27 97 H 138/48 L 08/16/21 15:20 99 H 104/29 L 08/16/21 15:00 103 H 80/49 L 08/16/21 14:40 102 H 89/58 L 08/16/21 14:20 89 102/60 08/16/21 14:00 89 96/65 L 08/16/21 13:40 86 102/53 L 08/16/21 13:23 85 118/74 08/16/21 13:16 36.3 C L 87 08/16/21 09:42 79 08/16/21 07:08 36.5 C 82 18 127/73 08/16/21 06:07 Pulse Ox 08/16/21 15:40 08/16/21 15:27 08/16/21 15:20 08/16/21 15:00 08/16/21 14:40 08/16/21 14:20 08/16/21 14:00 08/16/21 13:40 08/16/21 13:23 08/16/21 13:16 08/16/21 09:42 08/16/21 07:08 93 08/16/21 06:07 93 Laboratory Results Laboratory Results - last 24 hr 08/12/21 08/15/21 08/16/21 14:27 20:08 07:28 POC Glucose 114 H 127 H Vit D 1,25-Dihyd Total 14 L 1,25 Dihydroxy Vit D2 <8 1,25 Dihydroxy Vit D3 14 08/16/21 08/16/21 08/16/21 11:45 16:52 17:11 POC Glucose 116 H 211 H 139 H Vit D 1,25-Dihyd Total 1,25 Dihydroxy Vit D2 1,25 Dihydroxy Vit D3 Medications Administered Current Inpatient Medications Acetaminophen (Acetaminophen Susp 325 Mg/10.15 Ml Udc) 650 mg PO Q6H PRN PRN Reason: Fever Stop: 09/08/21 23:27 Last Admin: 08/15/21 20:56 Dose: 650 mg Documented by: Atorvastatin Calcium (Atorvastatin 40 Mg Tab) 40 mg PO QAM [facility] Stop: 09/11/21 08:59 Last Admin: 08/16/21 09:00 Dose: 40 mg Documented by: Atropine Sulfate (Atropine Sulfate 0.1 Mg/Ml 10ml Syr) 0.5 mg IV .for use during dialysis PRN PRN Reason: HR < 60 with symptoms Stop: 08/30/21 08:11 Cinacalcet (Cinacalcet Hcl 30 Mg Tab) 30 mg PO DAILY RUSSELL Stop: 09/14/21 10:29 Last Admin: 08/16/21 09:00 Dose: 30 mg Documented by: Dexamethasone (Dexamethasone 1 Mg Tab) 2 mg PO QAM [facility]SELL Stop: 09/13/21 08:59 Last Admin: 08/16/21 09:00 Dose: 2 mg Documented by: Dextrose (Dextrose 50% 50 Ml Syringe) 25 - 50 ml IV UD PRN; Protocol PRN Reason: Hypoglycemia Protocol Stop: 08/21/21 14:44 Glucagon (Glucagon For Inj 1 Mg Vial) 1 mg IM UD PRN; Protocol PRN Reason: Hypoglycemia Protocol Stop: 08/21/21 14:44 Glucose (Glucose 40% Gel 15 Gm Tube) 15 - 30 gm PO UD PRN; Protocol PRN Reason: Hypoglycemia Protocol Stop: 08/21/21 14:44 Glucose (Glucose 10 Tabs/Tube) 4 - 8 tabs PO UD PRN; Protocol PRN Reason: Hypoglycemia Protocol Stop: 08/21/21 14:44 Heparin Sodium (Porcine) (Heparin Sod 5,000 Unit/0.5 Ml Vial) 5,000 units SQ Q8 RUSSELL Stop: 08/21/21 21:59 Last Admin: 08/16/21 15:24 Dose: Not Given Documented by: Ampicillin Sodium 2,000 mg/ (Sodium Chloride) 100 mls @ 200 mls/hr IV Q24H RUSSELL Stop: 08/29/21 15:59 Last Infusion: 08/16/21 18:11 Dose: Infused Documented by: Insulin Aspart (Insulin Aspart 100 Units/Ml 3 Ml Pen) 0 units SC ACHS RUSSELL Stop: 09/12/21 16:29 Last Admin: 08/16/21 17:29 Dose: Not Given Documented by: Insulin Glargine (Insulin Glargine Solostar 100 Units/Ml 3 Ml Pen) 8 units SC QAM [facility]USSELL Stop: 08/26/21 09:44 Last Admin: 08/16/21 08:56 Dose: 8 units Documented by: Midodrine (Midodrine Hcl 2.5 Mg Tab) 5 mg PO TID@0800,1200,1700 RUSSELL Stop: 09/11/21 11:59 Last Admin: 08/16/21 17:29 Dose: 5 mg Documented by: Miscellaneous (Carbohydrates For Hypoglycemia ) 15 - 30 gm PO UD PRN PRN Reason: Hypoglycemia Treatment Stop: 08/21/21 14:44 Velphoro ~ Non- Formulary Patient's Own Med 2 ea PO TIDM [facility] Stop: 09/12/21 11:59 Last Admin: 08/16/21 17:28 Dose: 2 tabs Documented by: Ondansetron HCl (Ondansetron Inj 2 Mg/Ml 2 Ml Vial) 4 mg IV Q6H PRN PRN Reason: Nausea And Vomiting Stop: 08/24/21 14:10 Last Admin: 08/16/21 12:15 Dose: 4 mg Documented by: Pantoprazole Sodium (Pantoprazole 40 Mg Tab) [facility] [place] Stop: 09/11/21 08:59 Last Admin: 08/16/21 09:00 Dose: 40 mg Documented by: Sevelamer HCl (Sevelamer Hcl 800 Mg Tablet) 800 mg PO TIDM RUSSELL Stop: 08/31/21 11:59 Last Admin: 08/16/21 17:28 Dose: 800 mg Documented by: Sodium Chloride (Sodium Chloride 0.65% Na Soln 45 Ml ([place])) 1 sprays GABO QID PRN PRN Reason: Dryness Stop: 09/04/21 11:03 Vitamin B Complex (Vitamin B Complex Tab) 1 tab [facility] [place] Stop: 08/21/21 08:59 Last Admin: 08/16/21 09:00 Dose: 1 tab Documented by: Vitamin B Complex/Folic Acid (Nephrocaps) 1 cap PO QAM [facility] Stop: 08/23/21 08:59 Last Admin: 08/16/21 09:00 Dose: 1 cap Documented by: PG Care Time/CCT Total # of Minutes Spent Total Time Spent with Patient: Total time spent is greater than 50% in coordination of care (as documented) at patient's floor/unit and/or counseling patient: Coding Level of Care Code 57416 Subseq Hosp Care Lvl 2 Diagnoses Acute respiratory failure with hypoxia J96.01 Pneumonia due to 2019-nCoV U07.1; J12.82 Sinus bradycardia R00.1 ESRD (end stage renal disease) on dialysis N18.6; Z99.2 Anxiety F41.9 Acute respiratory distress syndrome (ARDS) due to 2019 novel coronavirus U07.1; J80 Nausea R11.0 Diabetes mellitus type 2 in nonobese E11.9 Hyperparathyroidism E21.3 Hypercholesterolemia E78.00 Anemia due to chronic kidney disease N18.9; D63.1 DVT prophylaxis Z29.9
[2021-08-16 17:11] LABS: Vitamin D 1,25 14 pg/mL (18-72); Vitamin D3,1,25 14 pg/mL
[2021-08-16] MEDS: AMPICILLIN 2,000 MG in SODIUM CHLOR 0.9% AD-VAN 100 ML IV SCH (17:38)
[2021-08-17] MEDS: HEPARIN SOD 5,000 UNIT/0.5 ML VIAL SQ SCH ×3 (05:18→22:56)
[2021-08-17] MEDS: ACETAMINOPHEN SUSP 325 MG/10.15 ML UDC PO PRN ×3 (05:47→23:17)
[2021-08-17] MEDS: PANTOprazole 40 MG TAB PO SCH (08:11)
[2021-08-17] MEDS: CINACALCET HCL 30 MG TAB PO SCH (08:12)
[2021-08-17] MEDS: dexAMETHasone 1 MG TAB PO SCH (08:12)
[2021-08-17] MEDS: SEVELAMER HCL 800 MG TABLET PO SCH ×3 (08:12→17:01)
[2021-08-17] MEDS: NEPHROCAPS PO SCH (08:12)
[2021-08-17] MEDS: VITAMIN B COMPLEX TAB PO SCH (08:13)
[2021-08-17] MEDS: ATORVASTATIN 40 MG TAB PO SCH (08:13)
[2021-08-17] MEDS: INSULIN GLARGINE SOLOSTAR 100 UNITS/ML 3 ML PEN SC SCH (08:14)
[2021-08-17] MEDS: INSULIN ASPART 100 UNITS/ML 3 ML PEN SC SCH ×4 (08:16→20:58)
[2021-08-17 08:18] LABS: Hemoglobin 11.8 g/dL (14.0-18.0); Mean Corpuscular Hemoglobin 30.2 pg (25-34); Mean Corpuscular Hgb Conc 33.7 g/dL (32-36); Mean Corpuscular Volume 89.5 fL (80-100); Platelet Count 275 K/uL (130-400); Red Blood Count 3.91 M/uL (4.7-6.1); White Blood Count 7.36 K/uL (4.8-10.8)
[2021-08-17] MEDS: ONDANSETRON INJ 2 MG/ML 2 ML VIAL IV PRN (08:23)
[2021-08-17] MEDS: MIDODRINE HCL 10 MG TAB PO SCH ×3 (08:35→17:02)
[2021-08-17] MEDS: VELPHORO PO SCH ×3 (08:35→17:01)
[2021-08-17 09:10] LABS: Albumin Level 2.6 gm/dl (3.4-5.0); BUN Creatinine Ratio 6.9 (10-20); Calcium 10.6 mg/dl (8.5-10.1); Creatinine Clr Calc Pharmacy 11.2 ml/min; Est GFR (African American) 8.2 ml/min; Est GFR (Non-African American) 7.1 ml/min
--- NOTE | 2021-08-17 10:31 | Nephrology Progress Note ---
Date of Service August 17, 2021 Assessment & Plan (1) ESRD (end stage renal disease) on dialysis: (2) History of kidney transplant: (3) Hypertension: (4) Acute respiratory failure with hypoxia: (5) COVID-19: Plan: ESRD, on hemodialysis, Friday, Friday, Friday.Admitted to the hospital with respiratory failure with COVID pneumonia. Intubated on 08/09/21 after worsening respiratory status and 12 to 15 L high flow NC 02, but extubated on 08/11/21. Respiratory status improved. Overall doing much better and making remarkable progress. Blood pressure, electrolyte acceptable.Oxygen requirement remains low, has been out of bed walking around without getting short of breath. --Plan for dialysis tomorrow, UF as tolerated, as he is feeling better and eating better, he is probably gaining weight back and we may have to readjust his dry weight again and increase the dry weight slowly. --continue on phos binder, Sensipar 30 mg po /d --left arm nephrology precaution, dose medications for GFR less than 10 Will follow Admission and Anticipated Discharge Date Admission Date: July 23, 2021 Ang Rodríguez was seen in his room this morning. Overall doing much better, seems comfortable, denies any respiratory distress. Currently on 3 L nasal cannula with saturation 97%. Has been getting of the bed and walking without getting short of breath. Appetite improved. Had dialysis yesterday however had less than 1 L UF as blood pressure dropped and overall not feeling well. blood pressure remains low . Complain of constipation. Review of Systems Review of Systems: Detailed review of system was otherwise unremarkable. Physical Exam Constitutional: + ill appearing Respiratory: normal respiratory effort; no respiratory distress Auscultation: + diminished lung sounds and + rales Cardiovascular: RRR, no murmur, no edema Extremities: + AV fistula ( Left brachiocephalic AV fistula with thrill and bruit.) Neurologic: awake; no focal motor deficits Psychiatric: A+Ox3, euthymic affect Results & Data ([facility]) Vital Signs (Past 12 Hours) Vital Signs Temp Pulse Resp BP Pulse Ox 08/17/21 07:37 36.5 C 88 18 92/58 L 97 08/16/21 23:21 36.5 C 88 18 93/57 L 100 PG Care Time/CCT Total # of Minutes Spent Total Time Spent with Patient: Total time spent is greater than 50% in coordination of care (as documented) at patient's floor/unit and/or counseling patient: Coding Level of Care Code 99196 Subseq Hosp Care Lvl 2 Diagnoses ESRD (end stage renal disease) on dialysis N18.6; Z99.2 History of kidney transplant Z94.0 Hypertension I10 Acute respiratory failure with hypoxia J96.01 COVID-19 U07.1
[2021-08-17] MEDS: DOCUSATE SODIUM 100 MG CAP PO SCH (10:49)
--- NOTE | 2021-08-17 14:26 | Hospitalist Progress Note ---
Date of Service August 17, 2021 Assessment & Plan (1) Acute respiratory failure with hypoxia: Plan: due to severe COVID-19 pneumonia, developed into ARDS. Pulmonary edema likely contributing, dialysis on pressors with removal of 4 L Escalating oxygen requirements prompted progression to intubation on 08/08/2021- extubated 08/11 improved with volume off loading suggesting this is from pulmonary edema from hfpef from renal failure oxygen requirement improved, he is on 5L, 96% completed 7 days of cefepime/doxy Remains on Dexamethasone, tapered to 2mg daily for a few more days, stop tomorrow (2) Pneumonia due to 2019-nCoV: Plan: Patient's been on dexamethasone since admission, tapering dose now, he is on 2mg, stop after tomorrow morning was not a candidate for Remdesivir treatment crp and procal were both high - finished 7 days of Cefepime/Doxy Did not meet criteria for baricitinib (3) Vasovagal syncope: Plan: straining to have a hard stool, "went black briefly" and hit top of head against wall he is fine now, vitals stable will check CT head for completeness, but low suspicion for hematoma, did not fall a far distance continue midodrine (4) ESRD (end stage renal disease) on dialysis: Plan[facility] able to dialyze with the patient receiving intravenous pressors for blood pressure support tends to have abrupt pressure drops with dialysis and additionally has seen issues with what appears to be autonomic dysregulation and Covid patients sometimes requiring pressors or medication such as midodrine etc. typical HD schedule of M/W/F has had dialysis much more frequently due to volume overload HD on 08/09, 08/10, 08/11 and 08/12, had a break on 08/13 HD on 08/14 with UF of 1764, tolerated well until last 20 minutes when he got hypotensive and light headed Na is 129 today but K stable increase Midodrine to 10mg TID (5) Anxiety: Plan: Seems to have panic attacks which negatively affect his respiratory state and status over has some encephalopathy post extubation cautious with Ativan (6) Sinus bradycardia: Plan: dropped to 40's on morning of 07/30 EKG showed sinus rhythm, no block responded to Atropine 0.5mg IV push, no further doses needed Atropine is at the bedside PRN resumed at 25mg BID on 08/01, HR in 60-70's (7) Acute respiratory distress syndrome (ARDS) due to 2019 novel coronavirus: Plan: was intubated 08/08-08/11 pulmonary medicine extubated and continues to manage stable on 5L today, he is 96%, can titrate down oxygen (8) Nausea: Plan: Did have improvement with Reglan earlier in this stay no complaints now (9) Diabetes mellitus type 2 in nonobese: Plan: controlled at this time novolog SSI lantus 8 units daily Glycemic management per pharmacy monitor for hypoglycemia, hyperglycemia, no issues (10) Hyperparathyroidism: Plan: Secondary to ESRD Continue VELPHORO (11) Hypercholesterolemia: Plan: Continue atorvastatin LFTs nl this admission (12) Anemia due to chronic kidney disease: Plan: stable (13) DVT prophylaxis: Plan: heparin TID 07/21/2021 CTA chest neg for PE Plan: PT OT consults, he is very weak from prolonged hospitalization need to work towards rehab, SNF placement he says his works at [employer] Admission and Anticipated Discharge Date Admission Date: July 23, 2021 Subjective patient had a brief syncopal episode this afternoon, he was straining to have a BM, very hard stool he said "I went black" and fell forward, hit the top of his head against a wall came to very quickly, was able to stand up from the floor, walked back to bed with walker and with RN assistance no dizziness or light headedness at this time no chest pain, no dyspnea, no cough appetite is not the greatest, no nausea no HD planned today reviewed labs and nephrology note Review of Systems Review of Systems: All systems reviewed & are unremarkable except as noted in Subjective Physical Exam Physical Exam: General: well developed, well nourished, obese male, comfortable, no distress Neck: supple, trachea midline, normal thyroid Lungs: clear to auscultation bilaterally, normal respiratory effort, no tachypnea, no distress today Heart: regular rate, S1 and S2, no murmur, peripheral pulses normal, capillary refill normal, no edema, LUE fistula with thrill and bruit Abdomen: soft, NT, distended, + BS, no hepatomegaly, normal to percussion Extremities: normal in appearance, no cyanosis, no petechiae, + generalized weakness Neuro: awake, cooperative, moves all extremities, no focal motor deficits, CN II-XII intact, sensation in extremities intact, normal speech Skin: warm, dry, no rash, normal turgor Psych: Awake, alert oriented x 3, calm today Results & Data Results & Data ([facility]) Vital Signs (Past 12 Hours) Vital Signs Temp Pulse Resp BP BP Pulse Ox 08/17/21 13:50 36.8 C 70 20 111/68 97 08/17/21 07:37 36.5 C 88 18 92/58 L 97 Laboratory Results Laboratory Results - last 24 hr 08/12/21 08/16/21 08/16/21 14:27 16:52 17:11 WBC RBC Hgb Hct MCV MCH MCHC RDW Std Deviation RDW Coeff of Lisseth Plt Count MPV Sodium Potassium Chloride Carbon Dioxide Anion Gap BUN Creatinine Est Cr Clr Drug Dosing Est GFR ( Amer) Est GFR (Non-Af Amer) BUN/Creatinine Ratio Glucose POC Glucose 211 H 139 H Calcium Phosphorus Albumin Vit D 1,25-Dihyd Total 14 L 1,25 Dihydroxy Vit D2 <8 1,25 Dihydroxy Vit D3 14 08/16/21 08/17/21 08/17/21 20:25 07:51 08:03 WBC 7.36 RBC 3.91 L Hgb 11.8 L Hct 35.0 L MCV 89.5 MCH 30.2 MCHC 33.7 RDW Std Deviation 57.0 H RDW Coeff of Lisseth 18.0 H Plt Count 275 MPV 9.0 Sodium Potassium Chloride Carbon Dioxide Anion Gap BUN Creatinine Est Cr Clr Drug Dosing Est GFR ( Amer) Est GFR (Non-Af Amer) BUN/Creatinine Ratio Glucose POC Glucose 121 H 107 H Calcium Phosphorus Albumin Vit D 1,25-Dihyd Total 1,25 Dihydroxy Vit D2 1,25 Dihydroxy Vit D3 08/17/21 08/17/21 08:03 12:00 WBC RBC Hgb Hct MCV MCH MCHC RDW Std Deviation RDW Coeff of Lisseth Plt Count MPV Sodium 129 L Potassium 4.0 Chloride 90 L Carbon Dioxide 27 Anion Gap 13.0 H BUN 53 H Creatinine 7.65 H* Est Cr Clr Drug Dosing 11.2 Est GFR ( Amer) 8.2 Est GFR (Non-Af Amer) 7.1 BUN/Creatinine Ratio 6.9 L Glucose 92 POC Glucose 107 H Calcium 10.6 H Phosphorus 7.0 H Albumin 2.6 L Vit D 1,25-Dihyd Total 1,25 Dihydroxy Vit D2 1,25 Dihydroxy Vit D3 Medications Administered Current Inpatient Medications Acetaminophen (Acetaminophen Susp 325 Mg/10.15 Ml Udc) 650 mg PO Q6H PRN PRN Reason: Fever Stop: 09/08/21 23:27 Last Admin: 08/17/21 11:56 Dose: 650 mg Documented by: Atorvastatin Calcium (Atorvastatin 40 Mg Tab) 40 mg PO QAM RUSSELL Stop: 09/11/21 08:59 Last Admin: 08/17/21 08:13 Dose: 40 mg Documented by: Atropine Sulfate (Atropine Sulfate 0.1 Mg/Ml 10ml Syr) 0.5 mg IV .for use during dialysis PRN PRN Reason: HR < 60 with symptoms Stop: 08/30/21 08:11 Cinacalcet (Cinacalcet Hcl 30 Mg Tab) 30 mg PO DAILY [facility] Stop: 09/14/21 10:29 Last Admin: 08/17/21 08:12 Dose: 30 mg Documented by: Dexamethasone (Dexamethasone 1 Mg Tab) 2 mg PO QAM RUSSELL Stop: 08/17/21 23:59 Last Admin: 08/17/21 08:12 Dose: 2 mg Documented by: Dextrose (Dextrose 50% 50 Ml Syringe) 25 - 50 ml IV UD PRN; Protocol PRN Reason: Hypoglycemia Protocol Stop: 08/21/21 14:44 Docusate Sodium (Docusate Sodium 100 Mg Cap) 100 mg PO DAILY [facility] Stop: 09/16/21 10:29 Last Admin: 08/17/21 10:49 Dose: 100 mg Documented by: Glucagon (Glucagon For Inj 1 Mg Vial) 1 mg IM UD PRN; Protocol PRN Reason: Hypoglycemia Protocol Stop: 08/21/21 14:44 Glucose (Glucose 40% Gel 15 Gm Tube) 15 - 30 gm PO UD PRN; Protocol PRN Reason: Hypoglycemia Protocol Stop: 08/21/21 14:44 Glucose (Glucose 10 Tabs/Tube) 4 - 8 tabs PO UD PRN; Protocol PRN Reason: Hypoglycemia Protocol Stop: 08/21/21 14:44 Heparin Sodium (Porcine) (Heparin Sod 5,000 Unit/0.5 Ml Vial) 5,000 units SQ Q8 RUSSELL Stop: 08/21/21 21:59 Last Admin: 08/17/21 05:18 Dose: 5,000 units Documented by: Ampicillin Sodium 2,000 mg/ (Sodium Chloride) 100 mls @ 200 mls/hr IV Q24H [facility] Stop: 08/29/21 15:59 Last Infusion: 08/16/21 18:11 Dose: Infused Documented by: Insulin Aspart (Insulin Aspart 100 Units/Ml 3 Ml Pen) 0 units SC ACHS [facility] Stop: 09/12/21 16:29 Last Admin: 08/17/21 12:16 Dose: Not Given Documented by: Insulin Glargine (Insulin Glargine Solostar 100 Units/Ml 3 Ml Pen) 8 units SC QAM [facility] Stop: 08/26/21 09:44 Last Admin: 08/17/21 08:14 Dose: 8 units Documented by: Midodrine (Midodrine Hcl 10 Mg Tab) 10 mg PO TID@0800,1200,1700 [facility] Stop: 09/16/21 07:59 Last Admin: 08/17/21 11:56 Dose: 10 mg Documented by: Miscellaneous (Carbohydrates For Hypoglycemia ) 15 - 30 gm PO UD PRN PRN Reason: Hypoglycemia Treatment Stop: 08/21/21 14:44 Velphoro ~ Non- Formulary Patient's Own Med 2 ea PO TIDM [facility] Stop: 09/12/21 11:59 Last Admin: 08/17/21 11:56 Dose: Not Given Documented by: Ondansetron HCl (Ondansetron Inj 2 Mg/Ml 2 Ml Vial) 4 mg IV Q6H PRN PRN Reason: Nausea And Vomiting Stop: 08/24/21 14:10 Last Admin: 08/17/21 08:23 Dose: 4 mg Documented by: Pantoprazole Sodium (Pantoprazole 40 Mg Tab) 40 mg PO QAM [facility] Stop: 09/11/21 08:59 Last Admin: 08/17/21 08:11 Dose: 40 mg Documented by: Sevelamer HCl (Sevelamer Hcl 800 Mg Tablet) 800 mg PO TIDM [facility] Stop: 08/31/21 11:59 Last Admin: 08/17/21 11:56 Dose: 800 mg Documented by: Sodium Chloride (Sodium Chloride 0.65% Na Soln 45 Ml ([place])) 1 sprays GABO QID PRN PRN Reason: Dryness Stop: 09/04/21 11:03 Vitamin B Complex (Vitamin B Complex Tab) 1 tab PO QAM [facility] Stop: 08/21/21 08:59 Last Admin: 08/17/21 08:13 Dose: 1 tab Documented by: Vitamin B Complex/Folic Acid (Nephrocaps) 1 cap PO QAM [facility] Stop: 08/23/21 08:59 Last Admin: 08/17/21 08:12 Dose: 1 cap Documented by: PG Care Time/CCT Total # of Minutes Spent Total Time Spent with Patient: Total time spent is greater than 50% in coordination of care (as documented) at patient's floor/unit and/or counseling patient: Coding Level of Care Code 22331 Subseq Hosp Care Lvl 2 Diagnoses Acute respiratory failure with hypoxia J96.01 Pneumonia due to 2019-nCoV U07.1; J12.82 Sinus bradycardia R00.1 ESRD (end stage renal disease) on dialysis N18.6; Z99.2 Anxiety F41.9 Acute respiratory distress syndrome (ARDS) due to 2019 novel coronavirus U07.1; J80 Nausea R11.0 Diabetes mellitus type 2 in nonobese E11.9 Hyperparathyroidism E21.3 Hypercholesterolemia E78.00 Anemia due to chronic kidney disease N18.9; D63.1 DVT prophylaxis Z29.9 Vasovagal syncope R55
--- NOTE | 2021-08-17 15:25 | CT Scan Report ---
CT SCAN OF THE BRAIN WITHOUT IV CONTRAST CLINICAL HISTORY: Fall. Head injury. COMPARISON STUDY: CT of the brain dated 11/23/2020. TECHNIQUE: Unenhanced axial CT scan of the brain is performed from the vertex to the skull base. A d ose lowering technique was utilized adhering to the principles of ALARA. CT DOSE: 614.27 mGy.cm FINDINGS: Brain parenchyma: The brain parenchyma is normal in appearance. There is no hemorrhage, mass effect, or evidence of acute territorial ischemia by CT criteria. Mercado-white matter differentiation is preser kevin. No extra-axial fluid collection is seen. Ventricles, sulci, cisterns: Normal in configuration. Intracranial vasculature: There is advanced atherosclerotic calcification of the cavernous carotid an d vertebral arteries. Calvarium: There is no depressed calvarial fracture. Sinuses and mastoids: There is mild mucosal thickening within the right sphenoid sinuses and near com plete opacification of the left frontal sinus. The mastoid air cells are well pneumatized. Orbits: The bony orbits are grossly intact. There are bilateral ocular lens implants. Retinal calcifi cations are seen bilaterally. IMPRESSION: There is no hemorrhage, mass effect, or evidence of acute territorial ischemia by CT alisha valencia. ACT 112: Negative or not required by law. Electronically signed by: Laurent Hall M.D. 08/17/2021 3:24 PM
[2021-08-17] MEDS: traMADol HCL 50 MG TABLET PO PRN (17:00)
[2021-08-17] MEDS: AMPICILLIN 2,000 MG in SODIUM CHLOR 0.9% AD-VAN 100 ML IV SCH (17:01)
[2021-08-18] MEDS: HEPARIN SOD 5,000 UNIT/0.5 ML VIAL SQ SCH ×3 (06:00→21:18)
[2021-08-18 08:17] LABS: Hematocrit (blood only) 32.3 % (42-52); Hemoglobin 10.4 g/dL (14.0-18.0); Mean Corpuscular Hemoglobin 29.1 pg (25-34); Mean Corpuscular Hgb Conc 32.2 g/dL (32-36); Mean Corpuscular Volume 90.5 fL (80-100); Mean Platelet Volume 8.9 fL (7.4-10.4); Platelet Count 227 K/uL (130-400); RDW Coefficient of Variation 18.2 % (11.5-14.5); Red Blood Count 3.57 M/uL (4.7-6.1); White Blood Count 6.57 K/uL (4.8-10.8)
[2021-08-18 08:43] LABS: Albumin Level 2.4 gm/dl (3.4-5.0); BUN Creatinine Ratio 7.3 (10-20); Calcium 10.1 mg/dl (8.5-10.1); Creatinine Clr Calc Pharmacy 8.4 ml/min; Est GFR (African American) 5.8 ml/min; Phosphorus 8.1 mg/dl (2.5-4.9)
[2021-08-18] MEDS: PANTOprazole 40 MG TAB PO SCH (08:45)
[2021-08-18] MEDS: VITAMIN B COMPLEX TAB PO SCH (08:45)
[2021-08-18] MEDS: ATORVASTATIN 40 MG TAB PO SCH (08:45)
[2021-08-18] MEDS: NEPHROCAPS PO SCH (08:45)
[2021-08-18] MEDS: SEVELAMER HCL 800 MG TABLET PO SCH ×3 (08:46→17:32)
[2021-08-18] MEDS: CINACALCET HCL 30 MG TAB PO SCH (08:46)
[2021-08-18] MEDS: MIDODRINE HCL 10 MG TAB PO SCH ×3 (08:46→17:32)
[2021-08-18] MEDS: VELPHORO PO SCH ×3 (08:46→17:32)
[2021-08-18] MEDS: DOCUSATE SODIUM 100 MG CAP PO SCH (08:48)
[2021-08-18] MEDS: INSULIN GLARGINE SOLOSTAR 100 UNITS/ML 3 ML PEN SC SCH (08:50)
[2021-08-18] MEDS: INSULIN ASPART 100 UNITS/ML 3 ML PEN SC SCH ×4 (08:56→21:14)
--- NOTE | 2021-08-18 12:38 | Nephrology Progress Note ---
Date of Service August 18, 2021 Assessment & Plan (1) ESRD (end stage renal disease) on dialysis: Plan: Treatment stopped at 2.5 hrs this AM due to patient tolerating poorly and hypotension. IVF provided ~800 ml + at the end of treatment. AVF functioning well. Qb at goal. Electrolytes have been controlled. No changes at this time. Next anticipated HD will be Friday. Hemoglobin >10. SHANNON therapy held. Medications appropriate for kidney function. (2) History of kidney transplant: (3) Hypertension: (4) Acute respiratory failure with hypoxia: (5) COVID-19: Admission and Anticipated Discharge Date Admission Date: July 23, 2021 Subjective No acute events overnight. Marcos was seen and evaluated on HD today. He did not feel well. Cramping noted. Generalized weakness. Feeling "drained". Did not tolerate UF due to hypotension. Left HD +800 ml. Review of Systems Review of Systems: All systems reviewed & are unremarkable except as noted in HPI & below Physical Exam Constitutional: + ill appearing; no acute distress Eyes: no scleral abnormality and no corneal abnormality Neck: normal visual inspection and trachea midline Respiratory: + tachypneic Auscultation: + rhonchi Cardiovascular: Rate/Rhythm: regular rhythm and + tachycardic Heart Sounds: normal S1, normal S2 and + murmur Extremities: + AV fistula; no edema Musculoskeletal: Extremities: no cyanosis and no clubbing Skin: normal turgor; no lesions Neurologic: Motor/Sensory: no tremor and no asterixis Psychiatric: Orientation: alert and oriented x 3 Results & Data ([facility]) Vital Signs (Past 12 Hours) Vital Signs Temp Pulse Pulse Resp BP BP BP 08/18/21 12:28 36.8 C 68 18 98/68 L 08/18/21 11:50 36.4 C L 74 94/64 L 08/18/21 11:20 78 88/52 L 08/18/21 11:00 71 96/62 L 08/18/21 10:40 69 116/65 08/18/21 10:20 77 90/64 L 08/18/21 10:00 75 90/59 L 08/18/21 09:40 73 100/65 08/18/21 09:23 67 113/71 08/18/21 09:20 71 80/33 L 08/18/21 09:09 64 121/68 08/18/21 09:01 36.4 C L 73 08/18/21 08:01 36.3 C L 71 19 109/68 08/18/21 07:37 71 08/18/21 04:27 36.5 C 78 94/64 L Pulse Ox 08/18/21 12:28 96 08/18/21 11:50 08/18/21 11:20 08/18/21 11:00 08/18/21 10:40 08/18/21 10:20 08/18/21 10:00 08/18/21 09:40 08/18/21 09:23 08/18/21 09:20 08/18/21 09:09 08/18/21 09:01 08/18/21 08:01 99 08/18/21 07:37 08/18/21 04:27 97 Laboratory Results Laboratory Results - last 24 hr 08/11/21 08/17/21 08/17/21 13:14 16:52 20:53 WBC RBC Hgb Hct MCV MCH MCHC RDW Std Deviation RDW Coeff of Lisseth Plt Count MPV Sodium Potassium Chloride Carbon Dioxide Anion Gap BUN Creatinine Est Cr Clr Drug Dosing Est GFR ( Amer) Est GFR (Non-Af Amer) BUN/Creatinine Ratio Glucose POC Glucose 120 H 125 H Calcium Phosphorus Albumin PTH Related Protein 36 H 08/18/21 08/18/21 08/18/21 07:49 08:01 08:01 WBC 6.57 RBC 3.57 L Hgb 10.4 L Hct 32.3 L MCV 90.5 MCH 29.1 MCHC 32.2 RDW Std Deviation 59.0 H RDW Coeff of Lisseth 18.2 H Plt Count 227 MPV 8.9 Sodium 130 L Potassium 4.0 Chloride 89 L Carbon Dioxide 25 Anion Gap 16.0 H BUN 73 H Creatinine 10.20 H* D Est Cr Clr Drug Dosing 8.4 Est GFR ( Amer) 5.8 Est GFR (Non-Af Amer) 5.0 BUN/Creatinine Ratio 7.3 L Glucose 98 POC Glucose 99 Calcium 10.1 Phosphorus 8.1 H Albumin 2.4 L PTH Related Protein 08/18/21 11:52 WBC RBC Hgb Hct MCV MCH MCHC RDW Std Deviation RDW Coeff of Lisseth Plt Count MPV Sodium Potassium Chloride Carbon Dioxide Anion Gap BUN Creatinine Est Cr Clr Drug Dosing Est GFR ( Amer) Est GFR (Non-Af Amer) BUN/Creatinine Ratio Glucose POC Glucose 89 Calcium Phosphorus Albumin PTH Related Protein PG Care Time/CCT Total # of Minutes Spent Total Time Spent with Patient: Total time spent is greater than 50% in coordination of care (as documented) at patient's floor/unit and/or counseling patient: Coding Level of Care Code 07154 Subseq Hosp Care Lvl 3 Diagnoses ESRD (end stage renal disease) on dialysis N18.6; Z99.2 History of kidney transplant Z94.0 Hypertension I10 Acute respiratory failure with hypoxia J96.01 COVID-19 U07.1
--- NOTE | 2021-08-18 14:59 | Hospitalist Progress Note ---
Date of Service August 18, 2021 Assessment & Plan (1) Acute respiratory failure with hypoxia: Plan: due to severe COVID-19 pneumonia, developed into ARDS. Pulmonary edema likely contributing, dialysis on pressors with removal of 4 L Escalating oxygen requirements prompted progression to intubation on 08/08/2021- extubated 08/11 improved with volume off loading suggesting this is from pulmonary edema from hfpef from renal failure oxygen requirement improved, he is on 4L, 95% completed 7 days of cefepime/doxy Remains on Dexamethasone, tapered to 2mg daily for a few more days, stop tomorrow (2) Pneumonia due to 2019-nCoV: Plan: Patient's been on dexamethasone since admission, tapering dose now, he is on 2mg, stop after tomorrow morning was not a candidate for Remdesivir treatment crp and procal were both high - finished 7 days of Cefepime/Doxy Did not meet criteria for baricitinib (3) Vasovagal syncope: Plan: straining to have a hard stool, "went black briefly" and hit top of head against wall on 08/17 CT head - no bleed no further episodes (4) ESRD (end stage renal disease) on dialysis: Plan: [facility]rology able to dialyze with the patient receiving intravenous pressors for blood pressure support tends to have abrupt pressure drops with dialysis and additionally has seen issues with what appears to be autonomic dysregulation and Covid patients sometimes requiring pressors or medication such as midodrine etc. typical HD schedule of M/W/F has had dialysis much more frequently due to volume overload HD on 08/09, 08/10, 08/11 and 08/12, had a break on 08/13 increase Midodrine to 10mg TID having brief HD sessions, has issue with hypotension and light headed sensation likely below his dry weight at this time which is contributing to low BP and difficulty tolerating HD (5) Anxiety: Plan: Seems to have panic attacks which negatively affect his respiratory state and status over has some encephalopathy post extubation cautious with Ativan (6) Sinus bradycardia: Plan: dropped to 40's on morning of 07/30 EKG showed sinus rhythm, no block responded to Atropine 0.5mg IV push, no further doses needed Atropine is at the bedside PRN resumed at 25mg BID on 08/01, HR in 60-70's (7) Acute respiratory distress syndrome (ARDS) due to 2019 novel coronavirus: Plan: was intubated 08/08-08/11 pulmonary medicine extubated and continues to manage stable on 5L today, he is 96%, can titrate down oxygen (8) Nausea: Plan: Did have improvement with Reglan earlier in this stay no complaints now (9) Diabetes mellitus type 2 in nonobese: Plan: controlled at this time novolog SSI lantus 8 units daily Glycemic management per pharmacy monitor for hypoglycemia, hyperglycemia, no issues (10) Hyperparathyroidism: Plan: Secondary to ESRD Continue VELPHORO (11) Hypercholesterolemia: Plan: Continue atorvastatin LFTs nl this admission (12) Anemia due to chronic kidney disease: Plan: stable (13) DVT prophylaxis: Plan: heparin TID 07/21/2021 CTA chest neg for PE Plan: PT OT consults, he is very weak from prolonged hospitalization need to work towards rehab, SNF placement he says his works at [employer] Admission and Anticipated Discharge Date Admission Date: July 23, 2021 Subjective patient had a brief HD session, he is likely below his dry weight, contributing to low blood pressures he is eating okay, no nausea breathing well, says he feels comfortable appreciate note from Dr Loomis Review of Systems Review of Systems: All systems reviewed & are unremarkable except as noted in Subjective Constitutional: + fatigue and + weakness; no fever Respiratory: + dyspnea on exertion; no cough and no dyspnea Cardiovascular: + lightheadedness Physical Exam Physical Exam: General: well developed, well nourished, obese male, comfortable, no distress Neck: supple, trachea midline, normal thyroid Lungs: clear to auscultation bilaterally, normal respiratory effort, no tachypnea, no distress today Heart: regular rate, S1 and S2, no murmur, peripheral pulses normal, capillary refill normal, no edema, LUE fistula with thrill and bruit Abdomen: soft, NT, distended, + BS, no hepatomegaly, normal to percussion Extremities: normal in appearance, no cyanosis, no petechiae, + generalized weakness Neuro: awake, cooperative, moves all extremities, no focal motor deficits, CN II-XII intact, sensation in extremities intact, normal speech Skin: warm, dry, no rash, normal turgor Psych: Awake, alert oriented x 3, calm today Results & Data Results & Data ([place]) Vital Signs (Past 12 Hours) Vital Signs Temp Pulse Pulse Resp BP BP BP 08/18/21 12:28 36.8 C 68 18 98/68 L 08/18/21 11:50 36.4 C L 74 94/64 L 08/18/21 11:20 78 88/52 L 08/18/21 11:00 71 96/62 L 08/18/21 10:40 69 116/65 08/18/21 10:20 77 90/64 L 08/18/21 10:00 75 90/59 L 08/18/21 09:40 73 100/65 08/18/21 09:23 67 113/71 08/18/21 09:20 71 80/33 L 08/18/21 09:09 64 121/68 08/18/21 09:01 36.4 C L 73 08/18/21 08:01 36.3 C L 71 19 109/68 08/18/21 07:37 71 08/18/21 04:27 36.5 C 78 94/64 L Pulse Ox 08/18/21 12:28 96 08/18/21 11:50 08/18/21 11:20 08/18/21 11:00 08/18/21 10:40 08/18/21 10:20 08/18/21 10:00 08/18/21 09:40 08/18/21 09:23 08/18/21 09:20 08/18/21 09:09 08/18/21 09:01 08/18/21 08:01 99 08/18/21 07:37 08/18/21 04:27 97 Laboratory Results Laboratory Results - last 24 hr 08/11/21 08/17/21 08/17/21 13:14 16:52 20:53 WBC RBC Hgb Hct MCV MCH MCHC RDW Std Deviation RDW Coeff of Lisseth Plt Count MPV Sodium Potassium Chloride Carbon Dioxide Anion Gap BUN Creatinine Est Cr Clr Drug Dosing Est GFR ( Amer) Est GFR (Non-Af Amer) BUN/Creatinine Ratio Glucose POC Glucose 120 H 125 H Calcium Phosphorus Albumin PTH Related Protein 36 H 08/18/21 08/18/21 08/18/21 07:49 08:01 08:01 WBC 6.57 RBC 3.57 L Hgb 10.4 L Hct 32.3 L MCV 90.5 MCH 29.1 MCHC 32.2 RDW Std Deviation 59.0 H RDW Coeff of Lisseth 18.2 H Plt Count 227 MPV 8.9 Sodium 130 L Potassium 4.0 Chloride 89 L Carbon Dioxide 25 Anion Gap 16.0 H BUN 73 H Creatinine 10.20 H* D Est Cr Clr Drug Dosing 8.4 Est GFR ( Amer) 5.8 Est GFR (Non-Af Amer) 5.0 BUN/Creatinine Ratio 7.3 L Glucose 98 POC Glucose 99 Calcium 10.1 Phosphorus 8.1 H Albumin 2.4 L PTH Related Protein 08/18/21 11:52 WBC RBC Hgb Hct MCV MCH MCHC RDW Std Deviation RDW Coeff of Lisseth Plt Count MPV Sodium Potassium Chloride Carbon Dioxide Anion Gap BUN Creatinine Est Cr Clr Drug Dosing Est GFR ( Amer) Est GFR (Non-Af Amer) BUN/Creatinine Ratio Glucose POC Glucose 89 Calcium Phosphorus Albumin PTH Related Protein Medications Administered Current Inpatient Medications Acetaminophen (Acetaminophen Susp 325 Mg/10.15 Ml Udc) 650 mg PO Q6H PRN PRN Reason: Fever Stop: 09/08/21 23:27 Last Admin: 08/17/21 23:17 Dose: 650 mg Documented by: Atorvastatin Calcium (Atorvastatin 40 Mg Tab) 40 mg PO QAM [facility] Stop: 09/11/21 08:59 Last Admin: 08/18/21 08:45 Dose: 40 mg Documented by: Atropine Sulfate (Atropine Sulfate 0.1 Mg/Ml 10ml Syr) 0.5 mg IV .for use during dialysis PRN PRN Reason: HR < 60 with symptoms Stop: 08/30/21 08:11 Cinacalcet (Cinacalcet Hcl 30 Mg Tab) 30 mg PO DAILY [facility] Stop: 09/14/21 10:29 Last Admin: 08/18/21 08:46 Dose: Not Given Documented by: Dextrose (Dextrose 50% 50 Ml Syringe) 25 - 50 ml IV UD PRN; Protocol PRN Reason: Hypoglycemia Protocol Stop: 08/21/21 14:44 Docusate Sodium (Docusate Sodium 100 Mg Cap) 100 mg PO DAILY [facility] Stop: 09/16/21 10:29 Last Admin: 08/18/21 08:48 Dose: 100 mg Documented by: Glucagon (Glucagon For Inj 1 Mg Vial) 1 mg IM UD PRN; Protocol PRN Reason: Hypoglycemia Protocol Stop: 08/21/21 14:44 Glucose (Glucose 40% Gel 15 Gm Tube) 15 - 30 gm PO UD PRN; Protocol PRN Reason: Hypoglycemia Protocol Stop: 08/21/21 14:44 Glucose (Glucose 10 Tabs/Tube) 4 - 8 tabs PO UD PRN; Protocol PRN Reason: Hypoglycemia Protocol Stop: 08/21/21 14:44 Heparin Sodium (Porcine) (Heparin Sod 5,000 Unit/0.5 Ml Vial) 5,000 units SQ Q8 [facility] Stop: 08/21/21 21:59 Last Admin: 08/18/21 14:21 Dose: 5,000 units Documented by: Ampicillin Sodium 2,000 mg/ (Sodium Chloride) 100 mls @ 200 mls/hr IV Q24H [facility] Stop: 08/29/21 15:59 Last Infusion: 08/17/21 17:35 Dose: Infused Documented by: Insulin Aspart (Insulin Aspart 100 Units/Ml 3 Ml Pen) 0 units SC ACHS [facility] Stop: 09/12/21 16:29 Last Admin: 08/18/21 12:31 Dose: 3 units Documented by: Insulin Glargine (Insulin Glargine Solostar 100 Units/Ml 3 Ml Pen) 8 units SC QAM [facility] Stop: 08/26/21 09:44 Last Admin: 08/18/21 08:50 Dose: 8 units Documented by: Midodrine (Midodrine Hcl 10 Mg Tab) 10 mg PO TID@0800,1200,1700 [facility] Stop: 09/16/21 07:59 Last Admin: 08/18/21 12:30 Dose: 10 mg Documented by: Miscellaneous (Carbohydrates For Hypoglycemia ) 15 - 30 gm PO UD PRN PRN Reason: Hypoglycemia Treatment Stop: 08/21/21 14:44 Velphoro ~ Non- Formulary Patient's Own Med 2 ea PO TIDM [facility] Stop: 09/12/21 11:59 Last Admin: 08/18/21 12:29 Dose: 2 tabs Documented by: Ondansetron HCl (Ondansetron Inj 2 Mg/Ml 2 Ml Vial) 4 mg IV Q6H PRN PRN Reason: Nausea And Vomiting Stop: 08/24/21 14:10 Last Admin: 08/17/21 08:23 Dose: 4 mg Documented by: Pantoprazole Sodium (Pantoprazole 40 Mg Tab) 40 mg PO QAM [facility] Stop: 09/11/21 08:59 Last Admin: 08/18/21 08:45 Dose: 40 mg Documented by: Sevelamer HCl (Sevelamer Hcl 800 Mg Tablet) 800 mg PO TIDM [facility] Stop: 08/31/21 11:59 Last Admin: 08/18/21 12:30 Dose: 800 mg Documented by: Sodium Chloride (Sodium Chloride 0.65% Na Soln 45 Ml ([place])) 1 sprays GABO QID PRN PRN Reason: Dryness Stop: 09/04/21 11:03 Tramadol HCl (Tramadol Hcl 50 Mg Tablet) 50 mg PO Q4H PRN PRN Reason: Pain Stop: 09/16/21 15:47 Last Admin: 08/17/21 17:00 Dose: 50 mg Documented by: Vitamin B Complex (Vitamin B Complex Tab) 1 tab PO QAM [facility] Stop: 08/21/21 08:59 Last Admin: 08/18/21 08:45 Dose: 1 tab Documented by: Vitamin B Complex/Folic Acid (Ne[facility]rocaps) [facility] Stop: 08/23/21 08:59 Last Admin: 08/18/21 08:45 Dose: 1 cap Documented by: PG Care Time/CCT Total # of Minutes Spent Total Time Spent with Patient: Total time spent is greater than 50% in coordination of care (as documented) at patient's floor/unit and/or counseling patient: Coding Level of Care Code 01208 Subseq Hosp Care Lvl 2 Diagnoses Acute respiratory failure with hypoxia J96.01 Pneumonia due to 2019-nCoV U07.1; J12.82 Vasovagal syncope R55 ESRD (end stage renal disease) on dialysis N18.6; Z99.2 Anxiety F41.9 Sinus bradycardia R00.1 Acute respiratory distress syndrome (ARDS) due to 2019 novel coronavirus U07.1; J80 Nausea R11.0 Diabetes mellitus type 2 in nonobese E11.9 Hyperparathyroidism E21.3 Hypercholesterolemia E78.00 Anemia due to chronic kidney disease N18.9; D63.1 DVT prophylaxis Z29.9
[2021-08-18] MEDS: ACETAMINOPHEN SUSP 325 MG/10.15 ML UDC PO PRN ×2 (15:52→22:42)
[2021-08-18] MEDS: AMPICILLIN 2,000 MG in SODIUM CHLOR 0.9% AD-VAN 100 ML IV SCH (15:52)
[2021-08-18] MEDS ORDERED: POLYETHYLENE (MIRALAX) 17 GM PACK PO STA (16:09)
[2021-08-18] MEDS: traMADol HCL 50 MG TABLET PO PRN (19:20)
[2021-08-18] MEDS: POLYETHYLENE (MIRALAX) 17 GM PACK PO SCH (21:18)
[2021-08-19] MEDS: HEPARIN SOD 5,000 UNIT/0.5 ML VIAL SQ SCH ×3 (05:32→20:35)
[2021-08-19] MEDS: MIDODRINE HCL 10 MG TAB PO SCH ×3 (07:43→16:29)
[2021-08-19] MEDS: SEVELAMER HCL 800 MG TABLET PO SCH ×3 (07:43→16:27)
[2021-08-19] MEDS: VELPHORO PO SCH ×3 (07:43→16:29)
[2021-08-19] MEDS: ATORVASTATIN 40 MG TAB PO SCH (07:43)
[2021-08-19] MEDS: CINACALCET HCL 30 MG TAB PO SCH (07:44)
[2021-08-19] MEDS: POLYETHYLENE (MIRALAX) 17 GM PACK PO SCH ×2 (07:44→20:36)
[2021-08-19] MEDS: DOCUSATE SODIUM 100 MG CAP PO SCH (07:44)
[2021-08-19] MEDS: NEPHROCAPS PO SCH (07:44)
[2021-08-19] MEDS: PANTOprazole 40 MG TAB PO SCH (07:44)
[2021-08-19] MEDS: VITAMIN B COMPLEX TAB PO SCH (07:45)
[2021-08-19] MEDS: INSULIN ASPART 100 UNITS/ML 3 ML PEN SC SCH ×4 (07:51→20:22)
[2021-08-19] MEDS: INSULIN GLARGINE SOLOSTAR 100 UNITS/ML 3 ML PEN SC SCH (07:51)
[2021-08-19] MEDS: traMADol HCL 50 MG TABLET PO PRN (09:58)
--- NOTE | 2021-08-19 10:30 | Nephrology Progress Note ---
Date of Service August 19, 2021 Assessment & Plan (1) ESRD (end stage renal disease) on dialysis: Plan: Treatment stopped early yesterday due to hypotension and patient not feeling well. Left HD in a positive fluid balance. Overall, volume status remains acceptable. Clearances have been appropriate. Remains on TID midodrine for hypotension. AVF functioning well. Plan next HD treatment tomorrow versus Friday. I have ordered a metabolic profile and H/H to be updated in the AM. Hemoglobin >10. SHANNON therapy held. PO4 increased. Sevelamer increased from 800 to 1600 mg QAC. Remains on Sensipar 30. Medications appropriate for kidney function. (2) History of kidney transplant: (3) Hypertension: (4) Acute respiratory failure with hypoxia: (5) COVID-19: Admission and Anticipated Discharge Date Admission Date: July 23, 2021 Subjective No acute events overnight. Experiencing pain after moving his bowels. Constipation improving but persists. Continues to feel dry. Breathing comfortably. Tolerating PO intake. No fevers or chills. Review of Systems Review of Systems: All systems reviewed & are unremarkable except as noted in HPI & below Physical Exam Constitutional: + ill appearing; no acute distress Eyes: no scleral abnormality and no corneal abnormality Neck: normal visual inspection and trachea midline Respiratory: + tachypneic Auscultation: + rhonchi Cardiovascular: Rate/Rhythm: regular rhythm and + tachycardic Heart Sounds: normal S1, normal S2 and + murmur Extremities: + AV fistula; no edema Musculoskeletal: Extremities: no cyanosis and no clubbing Skin: normal turgor; no lesions Neurologic: Motor/Sensory: no tremor and no asterixis Psychiatric: Orientation: alert and oriented x 3 Results & Data ([facility]) Vital Signs (Past 12 Hours) Vital Signs Temp Pulse Pulse Pulse Resp BP BP 08/19/21 07:40 36.8 C 69 18 120/74 08/19/21 07:02 67 08/19/21 03:57 36.5 C 72 18 119/74 08/19/21 00:01 36.4 C L 86 18 131/77 08/18/21 23:32 85 Pulse Ox 08/19/21 07:40 99 08/19/21 07:02 08/19/21 03:57 95 08/19/21 00:01 96 08/18/21 23:32 Laboratory Results Laboratory Results - last 24 hr 08/11/21 08/18/21 08/18/21 13:14 11:52 16:34 POC Glucose 89 112 H PTH Related Protein 36 H 08/18/21 08/19/21 19:58 07:38 POC Glucose 108 H 83 PTH Related Protein PG Care Time/CCT Total # of Minutes Spent Total Time Spent with Patient: Total time spent is greater than 50% in coordination of care (as documented) at patient's floor/unit and/or counseling patient: Coding Level of Care Code 95211 Subseq Hosp Care Lvl 3 Diagnoses ESRD (end stage renal disease) on dialysis N18.6; Z99.2 History of kidney transplant Z94.0 Hypertension I10 Acute respiratory failure with hypoxia J96.01 COVID-19 U07.1
[2021-08-19] MEDS: ONDANSETRON INJ 2 MG/ML 2 ML VIAL IV PRN ×2 (12:31→19:53)
--- NOTE | 2021-08-19 14:10 | Hospitalist Progress Note ---
Date of Service August 19, 2021 Assessment & Plan (1) Acute respiratory failure with hypoxia: Plan: due to severe COVID-19 pneumonia, developed into ARDS. Pulmonary edema likely contributing, dialysis on pressors with removal of 4 L Escalating oxygen requirements prompted progression to intubation on 08/08/2021- extubated 08/11 improved with volume off loading suggesting this is from pulmonary edema from hfpef from renal failure oxygen requirement improved, he is on 4L, 95% completed 7 days of cefepime/doxy Remains on Dexamethasone, tapered to 2mg daily for a few days, stopped 08/19 (2) Pneumonia due to 2019-nCoV: Plan: Patient's been on dexamethasone since admission, tapering dose, stopped 08/19 was not a candidate for Remdesivir treatment crp and procal were both high - finished 7 days of Cefepime/Doxy Did not meet criteria for baricitinib (3) Vasovagal syncope: Plan: straining to have a hard stool, "went black briefly" and hit top of head against wall on 08/17 CT head - no bleed no further episodes continue Midodrine 10mg TID, it is likely that he is below dry weight, HD actua lly giving back saline (4) ESRD (end stage renal disease) on dialysis: Plan: increased Midodrine to 10mg TID having brief HD sessions, has issue with hypotension and light headed sensation likely below his dry weight at this time which is contributing to low BP and difficulty tolerating HD, nephrology is giving back NSS plan for next HD either tomorrow or Tuesday 08/21 (5) Anxiety: Plan: Seems to have panic attacks which negatively affect his respiratory state and status over has some encephalopathy post extubation cautious with Ativan (6) Sinus bradycardia: Plan: dropped to 40's on morning of 07/30 EKG showed sinus rhythm, no block responded to Atropine 0.5mg IV push, no further doses needed Atropine is at the bedside PRN resumed at 25mg BID on 08/01, HR in 60-70's (7) Acute respiratory distress syndrome (ARDS) due to 2019 novel coronavirus: Plan: was intubated 08/08-08/11 pulmonary medicine extubated and continues to manage stable on 2L today, he is 96%, can titrate down oxygen (8) Nausea: Plan: Did have improvement with Reglan earlier in this stay no complaints now (9) Diabetes mellitus type 2 in nonobese: Plan: controlled at this time novolog SSI lantus 8 units daily Glycemic management per pharmacy monitor for hypoglycemia, hyperglycemia, no issues (10) Hyperparathyroidism: Plan: Secondary to ESRD Continue VELPHORO (11) Hypercholesterolemia: Plan: Continue atorvastatin LFTs nl this admission (12) Anemia due to chronic kidney disease: Plan: stable (13) DVT prophylaxis: Plan: heparin TID 07/21/2021 CTA chest neg for PE Plan: PT OT consults, he is very weak from prolonged hospitalization need to work towards rehab, SNF placement he says his works at [employer] Admission and Anticipated Discharge Date Admission Date: July 23, 2021 Subjective appreciate note from Dr. Loomis, leaving HD with positive fluid balance yesterday plan for HD either tomorrow or Friday patient had a BM with Miralax Review of Systems Review of Systems: All systems reviewed & are unremarkable except as noted in Subjective Gastrointestinal: + constipation Physical Exam Physical Exam: General: well developed, well nourished, obese male, comfortable, no distress Neck: supple, trachea midline, normal thyroid Lungs: clear to auscultation bilaterally, normal respiratory effort, no tachypnea, no distress today Heart: regular rate, S1 and S2, no murmur, peripheral pulses normal, capillary refill normal, no edema, LUE fistula with thrill and bruit Abdomen: soft, NT, distended, + BS, no hepatomegaly, normal to percussion Extremities: normal in appearance, no cyanosis, no petechiae, + generalized weakness Neuro: awake, cooperative, moves all extremities, no focal motor deficits, CN II-XII intact, sensation in extremities intact, normal speech Skin: warm, dry, no rash, normal turgor Psych: Awake, alert oriented x 3, calm today Results & Data Results & Data ([facility]) Vital Signs (Past 12 Hours) Vital Signs Temp Pulse Pulse Pulse Resp BP BP 08/19/21 12:08 36.7 C 72 18 118/72 08/19/21 07:40 36.8 C 69 18 120/74 08/19/21 07:02 67 08/19/21 03:57 36.5 C 72 18 119/74 Pulse Ox 08/19/21 12:08 99 08/19/21 07:40 99 08/19/21 07:02 08/19/21 03:57 95 Laboratory Results Laboratory Results - last 24 hr 08/18/21 08/18/21 08/19/21 16:34 19:58 07:38 POC Glucose 112 H 108 H 83 08/19/21 11:55 POC Glucose 82 Medications Administered Current Inpatient Medications Acetaminophen (Acetaminophen Susp 325 Mg/10.15 Ml Udc) 650 mg PO Q6H PRN PRN Reason: Fever Stop: 09/08/21 23:27 Last Admin: 08/18/21 22:42 Dose: 650 mg Documented by: Atorvastatin Calcium (Atorvastatin 40 Mg Tab) 40 mg PO QAM [facility] Stop: 09/11/21 08:59 Last Admin: 08/19/21 07:43 Dose: 40 mg Documented by: Atropine Sulfate (Atropine Sulfate 0.1 Mg/Ml 10ml Syr) 0.5 mg IV .for use during dialysis PRN PRN Reason: HR < 60 with symptoms Stop: 08/30/21 08:11 Cinacalcet (Cinacalcet Hcl 30 Mg Tab) 30 mg PO DAILY [facility] Stop: 09/14/21 10:29 Last Admin: 08/19/21 07:44 Dose: 30 mg Documented by: Dextrose (Dextrose 50% 50 Ml Syringe) 25 - 50 ml IV UD PRN; Protocol PRN Reason: Hypoglycemia Protocol Stop: 08/21/21 14:44 Docusate Sodium (Docusate Sodium 100 Mg Cap) 100 mg PO DAILY [facility] Stop: 09/16/21 10:29 Last Admin: 08/19/21 07:44 Dose: 100 mg Documented by: Glucagon (Glucagon For Inj 1 Mg Vial) 1 mg IM UD PRN; Protocol PRN Reason: Hypoglycemia Protocol Stop: 08/21/21 14:44 Glucose (Glucose 40% Gel 15 Gm Tube) 15 - 30 gm PO UD PRN; Protocol PRN Reason: Hypoglycemia Protocol Stop: 08/21/21 14:44 Glucose (Glucose 10 Tabs/Tube) 4 - 8 tabs PO UD PRN; Protocol PRN Reason: Hypoglycemia Protocol Stop: 08/21/21 14:44 Heparin Sodium (Porcine) (Heparin Sod 5,000 Unit/0.5 Ml Vial) 5,000 units SQ Q8 [facility] Stop: 08/21/21 21:59 Last Admin: 08/19/21 12:24 Dose: 5,000 units Documented by: Ampicillin Sodium 2,000 mg/ (Sodium Chloride) 100 mls @ 200 mls/hr IV Q24H [facility] Stop: 08/29/21 15:59 Last Infusion: 08/18/21 16:32 Dose: Infused Documented by: Insulin Aspart (Insulin Aspart 100 Units/Ml 3 Ml Pen) 0 units SC ACHS [facility] Stop: 09/12/21 16:29 Last Admin: 08/19/21 12:27 Dose: Not Given Documented by: Insulin Glargine (Insulin Glargine Solostar 100 Units/Ml 3 Ml Pen) 8 units SC QAM [facility] Stop: 08/26/21 09:44 Last Admin: 08/19/21 07:51 Dose: 8 units Documented by: Midodrine (Midodrine Hcl 10 Mg Tab) 10 mg PO TID@0800,1200,1700 [facility] Stop: 09/16/21 07:59 Last Admin: 08/19/21 12:22 Dose: 10 mg Documented by: Miscellaneous (Carbohydrates For Hypoglycemia ) 15 - 30 gm PO UD PRN PRN Reason: Hypoglycemia Treatment Stop: 08/21/21 14:44 Velphoro ~ Non- Formulary Patient's Own Med 2 ea PO TIDM [facility] Stop: 09/12/21 11:59 Last Admin: 08/19/21 12:22 Dose: 2 tabs Documented by: Ondansetron HCl (Ondansetron Inj 2 Mg/Ml 2 Ml Vial) 4 mg IV Q6H PRN PRN Reason: Nausea And Vomiting Stop: 08/24/21 14:10 Last Admin: 08/19/21 12:31 Dose: 4 mg Documented by: Pantoprazole Sodium (Pantoprazole 40 Mg Tab) 40 mg PO QAM [facility] Stop: 09/11/21 08:59 Last Admin: 08/19/21 07:44 Dose: 40 mg Documented by: Polyethylene Glycol (Polyethylene (Miralax) 17 Gm Pack) 17 gm PO BID [facility] Stop: 09/17/21 20:59 Last Admin: 08/19/21 07:44 Dose: Not Given Documented by: Sevelamer HCl (Sevelamer Hcl 800 Mg Tablet) 1,600 mg PO TIDM [facility] Stop: 09/18/21 11:59 Last Admin: 08/19/21 12:21 Dose: 1,600 mg Documented by: Sodium Chloride (Sodium Chloride 0.65% Na Soln 45 Ml ([place])) 1 sprays GABO QID PRN PRN Reason: Dryness Stop: 09/04/21 11:03 Tramadol HCl (Tramadol Hcl 50 Mg Tablet) 50 mg PO Q4H PRN PRN Reason: Pain Stop: 09/16/21 15:47 Last Admin: 08/19/21 09:58 Dose: 50 mg Documented by: Vitamin B Complex (Vitamin B Complex Tab) 1 tab PO QAM [facility] Stop: 08/21/21 08:59 Last Admin: 08/19/21 07:45 Dose: 1 tab Documented by: Vitamin B Complex/Folic Acid (Nephrocaps) 1 cap PO QAM [facility] Stop: 08/23/21 08:59 Last Admin: 08/19/21 07:44 Dose: 1 cap Documented by: PG Care Time/CCT Total # of Minutes Spent Total Time Spent with Patient: Total time spent is greater than 50% in coordination of care (as documented) at patient's floor/unit and/or counseling patient: Coding Level of Care Code 18675 Subseq Hosp Care Lvl 2 Diagnoses Acute respiratory failure with hypoxia J96.01 Pneumonia due to 2019-nCoV U07.1; J12.82 Vasovagal syncope R55 ESRD (end stage renal disease) on dialysis N18.6; Z99.2 Anxiety F41.9 Sinus bradycardia R00.1 Acute respiratory distress syndrome (ARDS) due to 2019 novel coronavirus U07.1; J80 Nausea R11.0 Diabetes mellitus type 2 in nonobese E11.9 Hyperparathyroidism E21.3 Hypercholesterolemia E78.00 Anemia due to chronic kidney disease N18.9; D63.1 DVT prophylaxis Z29.9
[2021-08-19] MEDS: AMPICILLIN 2,000 MG in SODIUM CHLOR 0.9% AD-VAN 100 ML IV SCH (16:27)
[2021-08-19] MEDS: ACETAMINOPHEN SUSP 325 MG/10.15 ML UDC PO PRN (20:40)
[2021-08-20] MEDS: HEPARIN SOD 5,000 UNIT/0.5 ML VIAL SQ SCH ×3 (05:59→21:30)
[2021-08-20 07:37] LABS: Hematocrit (blood only) 30.9 % (42-52); Hemoglobin 9.8 g/dL (14.0-18.0)
[2021-08-20 08:24] LABS: Albumin Globulin Ratio 0.5 (0.9-2); BUN Creatinine Ratio 6.4 (10-20); Bilirubin,Total 0.4 mg/dl (0.2-1); Calcium 9.5 mg/dl (8.5-10.1); Creatinine Clr Calc Pharmacy 8.8 ml/min; Est GFR (African American) 6.1 ml/min; Est GFR (Non-African American) 5.3 ml/min; Globulin 4.3 gm/dl (2.5-4.0); Phosphorus 6.7 mg/dl (2.5-4.9); Potassium 4.3 mmol/L (3.5-5.1); Total Protein 6.3 gm/dl (6.4-8.2)
[2021-08-20] MEDS: SEVELAMER HCL 800 MG TABLET PO SCH ×3 (08:27→18:07)
[2021-08-20] MEDS: DOCUSATE SODIUM 100 MG CAP PO SCH (08:27)
[2021-08-20] MEDS: MIDODRINE HCL 10 MG TAB PO SCH ×3 (08:27→18:07)
[2021-08-20] MEDS: VITAMIN B COMPLEX TAB PO SCH (08:27)
[2021-08-20] MEDS: NEPHROCAPS PO SCH (08:27)
[2021-08-20] MEDS: POLYETHYLENE (MIRALAX) 17 GM PACK PO SCH ×2 (08:27→21:30)
[2021-08-20] MEDS: VELPHORO PO SCH ×3 (08:27→18:07)
[2021-08-20] MEDS: ATORVASTATIN 40 MG TAB PO SCH (08:27)
[2021-08-20] MEDS: PANTOprazole 40 MG TAB PO SCH (08:27)
[2021-08-20] MEDS: CINACALCET HCL 30 MG TAB PO SCH (08:27)
[2021-08-20] MEDS: INSULIN ASPART 100 UNITS/ML 3 ML PEN SC SCH ×4 (08:30→21:29)
[2021-08-20] MEDS: INSULIN GLARGINE SOLOSTAR 100 UNITS/ML 3 ML PEN SC SCH (08:31)
[2021-08-20] MEDS ORDERED: SODIUM CHLORIDE 0.9% 1000ML 1,000 ML IV PRN (09:47)
[2021-08-20] MEDS ORDERED: HEPARIN SOD (PORCINE) 1000 UNIT/ML IV ONE (09:47)
--- NOTE | 2021-08-20 09:54 | Nephrology Progress Note ---
Date of Service August 20, 2021 Assessment & Plan (1) ESRD (end stage renal disease) on dialysis: Plan: Orders for HD today entered into EMR and reviewed with dialysis nurse. Uf goal 1-2 L as tolerated. Remains on TID midodrine for hypotension. AVF functioning well. Medications appropriate for kidney function. (2) History of kidney transplant: (3) COVID-19: Plan: Should not require additional isolation or treatment in outpatient isolation unit post discharge. (4) Chronic kidney disease-mineral and bone disorder: Plan: Sevelamer 1600 mg QAC. Remains on Sensipar 30. (5) Anemia: Plan: Epogen 38116 units with HD today. Admission and Anticipated Discharge Date Admission Date: July 23, 2021 Subjective No acute events overnight. Marcos feels well this AM. He continues to experience an intermittent urge to void but has not produced any urine. Breathing comfortably. Remains very weak. Appetite fair. Review of Systems Review of Systems: All systems reviewed & are unremarkable except as noted in HPI & below Physical Exam Constitutional: well developed; no acute distress Eyes: no scleral abnormality and no corneal abnormality ENMT: Mouth: no oral mucosal abnormality and oral mucous membranes not dry Neck: normal visual inspection and trachea midline Respiratory: normal respiratory effort Auscultation: lungs clear to auscultation bilaterally and + rales (few at right base) Cardiovascular: Rate/Rhythm: regular rate Heart Sounds: normal S1, normal S2 and + murmur Extremities: + AV fistula; no edema Musculoskeletal: Extremities: no cyanosis and no clubbing Skin: normal turgor; no lesions Neurologic: Motor/Sensory: no tremor and no asterixis Psychiatric: Orientation: alert and oriented x 3 Results & Data ([facility]) Vital Signs (Past 12 Hours) Vital Signs Temp Pulse Pulse Pulse Resp BP BP 08/20/21 08:00 66 08/20/21 07:37 36.6 C 77 16 120/78 08/20/21 03:06 36.6 C 92 H 18 125/82 08/20/21 01:18 77 08/19/21 23:17 36.4 C L 67 16 122/73 Pulse Ox 08/20/21 08:00 08/20/21 07:37 100 08/20/21 03:06 90 08/20/21 01:18 08/19/21 23:17 100 Laboratory Results Laboratory Results - last 24 hr 08/19/21 08/19/21 08/19/21 11:55 16:49 20:18 Hgb Hct Sodium Potassium Chloride Carbon Dioxide Anion Gap BUN Creatinine Est Cr Clr Drug Dosing Est GFR ( Amer) Est GFR (Non-Af Amer) BUN/Creatinine Ratio Glucose POC Glucose 82 80 99 Calcium Phosphorus Total Bilirubin AST ALT Alkaline Phosphatase Total Protein Albumin Globulin Albumin/Globulin Ratio 08/20/21 08/20/21 08/20/21 07:25 07:27 07:27 Hgb 9.8 L Hct 30.9 L Sodium 131 L Potassium 4.3 Chloride 94 L Carbon Dioxide 26 Anion Gap 11.0 BUN 62 H Creatinine 9.75 H* D Est Cr Clr Drug Dosing 8.8 Est GFR ( Amer) 6.1 Est GFR (Non-Af Amer) 5.3 BUN/Creatinine Ratio 6.4 L Glucose 71 POC Glucose 96 Calcium 9.5 Phosphorus 6.7 H Total Bilirubin 0.4 AST 20 ALT 13 Alkaline Phosphatase 70 Total Protein 6.3 L Albumin 2.0 L Globulin 4.3 H Albumin/Globulin Ratio 0.5 L PG Care Time/CCT Total # of Minutes Spent Total Time Spent with Patient: Total time spent is greater than 50% in coordination of care (as documented) at patient's floor/unit and/or counseling patient: Coding Level of Care Code 85103 Subseq Hosp Care Lvl 3 Diagnoses ESRD (end stage renal disease) on dialysis N18.6; Z99.2 History of kidney transplant Z94.0 COVID-19 U07.1 Chronic kidney disease-mineral and bone disorder N18.9; E83.9; M89.9 Anemia D64.9
[2021-08-20] MEDS ORDERED: EPOETIN ALFA 10,000 UNITS/ML VIAL IV ONE (10:00)
[2021-08-20] MEDS: ACETAMINOPHEN SUSP 325 MG/10.15 ML UDC PO PRN ×2 (12:18→18:49)
[2021-08-20] MEDS: ONDANSETRON INJ 2 MG/ML 2 ML VIAL IV PRN ×2 (12:22→18:46)
--- NOTE | 2021-08-20 13:31 | Palliative Care Progress Note ---
Date of Service August 20, 2021 Assessment & Plan (1) Palliative care encounter: Plan: Marcos has shown improvement over the past week and a half. He remains on 4LNC, but is showing significant improvement post extubation. He is overall weak, but willing to participate in rehabilitation. His works at [employer] and placement is pending. Overall, we discussed his goals for continuation in care and completed a POLST form, see below for details. For now, palliative medicine will sign off. (2) POLST (Physician Orders for Life-Sustaining Treatment): Plan: POLST form completed at the bedside and signed by the patient. Full code, Full treatment, trial abx, and trial artificial nutrition/hydration. Copy and original placed on chart. Original to accompany patient to [facility], likely [facility] 08/21 (3) Hypoxia: Plan: Being treated for COVID-19 PNA. Patient was unvax. Pt removed from isolation. Now on 4LNC. (4) ESRD (end stage renal disease) on dialysis: Plan: Patient received a kidney transplant in 2007 and rejection in 2015 due to medication non-compliance. Admission and Anticipated Discharge Date Admission Date: July 23, 2021 Subjective Patient awake and laying in his bed. He is complaining of his buttocks hurting from not being out of be as much. He was able to ambulate to the doorway with PT today Goal to transition to SNF for acute rehab pending acceptance/bed availability. Review of Systems Review of Systems: [place] [facility] Assessment Scale: By observation Pain 0/3 SOB: 0/3 Tiredness: 1/3 Nausea: 0/3 Palliative Performance Scale: 40% Physical Exam Constitutional: + frail appearing ENMT: Mouth: + dry oral mucous membranes Respiratory: Auscultation: + rhonchi Cardiovascular: Rate/Rhythm: regular rate and regular rhythm Heart Sounds: normal S1 and normal S2 Extremities: normal capillary refill and + edema Gastrointestinal (Abdomen): Inspection/Auscultation: abdomen normal to inspection Skin: + pallor Psychiatric: Orientation: alert and oriented x 3 Insight: good insight Judgement: good judgement Results & Data ([facility]) Vital Signs (Past 12 Hours) Vital Signs Temp Pulse Pulse Pulse Resp BP BP 08/20/21 11:19 36.4 C L 78 18 127/84 08/20/21 08:00 66 08/20/21 07:37 36.6 C 77 16 120/78 08/20/21 03:06 36.6 C 92 H 18 125/82 Pulse Ox 08/20/21 11:19 96 08/20/21 08:00 08/20/21 07:37 100 08/20/21 03:06 90 PG Care Time/CCT Total # of Minutes Spent Total Time Spent with Patient: Total time spent is greater than 50% in coordination of care (as documented) at patient's floor/unit and/or counseling patient: 35 minutes with > 50% of that time spent assessing the patient, discussing goals of care with the patient and completing a POLST form while collaborating with IDT Coding Level of Care Code 53515 Subseq Hosp Care Lvl 3 Diagnoses Palliative care encounter Z51.5 Hypoxia R09.02 ESRD (end stage renal disease) on dialysis N18.6; Z99.2 POLST (Physician Orders for Life-Sustaining Treatment) Z78.9 Time Spent (min) 35
[2021-08-20] MEDS: AMPICILLIN 2,000 MG in SODIUM CHLOR 0.9% AD-VAN 100 ML IV SCH (18:07)
[2021-08-20] MEDS: HEPARIN SOD (PORCINE) 1000 UNIT/ML IV SCH (18:09)
--- NOTE | 2021-08-20 21:14 | Hospitalist Progress Note ---
Date of Service August 20, 2021 Assessment & Plan (1) Acute respiratory failure with hypoxia: Plan: due to severe COVID-19 pneumonia, developed into ARDS. Pulmonary edema likely contributing, dialysis on pressors with removal of 4 L Escalating oxygen requirements prompted progression to intubation on 08/08/2021- extubated 08/11 improved with volume off loading suggesting this is from pulmonary edema from hfpef from renal failure oxygen requirement improved, he is on 4L, 95% completed 7 days of cefepime/doxy Remains on Dexamethasone, tapered to 2mg daily for a few days, stopped 08/19 if continues to improve, will discharge tomorrow. (2) Pneumonia due to 2019-nCoV: Plan: Patient's been on dexamethasone since admission, tapering dose, stopped 08/19 was not a candidate for Remdesivir treatment crp and procal were both high - finished 7 days of Cefepime/Doxy Did not meet criteria for baricitinib (3) Vasovagal syncope: Plan: straining to have a hard stool, "went black briefly" and hit top of head against wall on 08/17 CT head - no bleed no further episodes continue Midodrine 10mg TID, it is likely that he is below dry weight, HD actually giving back saline (4) ESRD (end stage renal disease) on dialysis: Plan: increased Midodrine to 10mg TID having brief HD sessions, has issue with hypotension and light headed sensation likely below his dry weight at this time which is contributing to low BP and difficulty tolerating HD, nephrology is giving back NSS plan for next HD either tomorrow or Tuesday 08/21 (5) Anxiety: Plan: Seems to have panic attacks which negatively affect his respiratory state and status over has some encephalopathy post extubation cautious with Ativan (6) Sinus bradycardia: Plan: dropped to 40's on morning of 07/30 EKG showed sinus rhythm, no block responded to Atropine 0.5mg IV push, no further doses needed Atropine is at the bedside PRN resumed at 25mg BID on 08/01, HR in 60-70's (7) Acute respiratory distress syndrome (ARDS) due to 2019 novel coronavirus: Plan: was intubated 08/08-08/11 pulmonary medicine extubated and continues to manage stable on 2L today, he is 96%, can titrate down oxygen (8) Nausea: Plan: Did have improvement with Reglan earlier in this stay no complaints now (9) Diabetes mellitus type 2 in nonobese: Plan: controlled at this time novolog SSI lantus 8 units daily Glycemic management per pharmacy monitor for hypoglycemia, hyperglycemia, no issues (10) Hyperparathyroidism: Plan: Secondary to ESRD Continue VELPHORO (11) Hypercholesterolemia: Plan: Continue atorvastatin LFTs nl this admission (12) Anemia due to chronic kidney disease: Plan: stable (13) DVT prophylaxis: Plan: heparin TID 07/21/2021 CTA chest neg for PE Plan: PT OT consults, he is very weak from prolonged hospitalization need to work towards rehab, SNF placement he says his works at [employer] Admission and Anticipated Discharge Date Admission Date: July 23, 2021 Subjective Patient reports no new symptoms. Review of Systems Review of Systems: All systems reviewed & are unremarkable except as noted in HPI & below Physical Exam Physical Exam: General: well developed, well nourished, obese male, comfortable, no distress Neck: supple, trachea midline, normal thyroid Lungs: clear to auscultation bilaterally, normal respiratory effort, no tachypnea, no distress today Heart: regular rate, S1 and S2, no murmur, peripheral pulses normal, capillary refill normal, no edema, LUE fistula with thrill and bruit Abdomen: soft, NT, distended, + BS, no hepatomegaly, normal to percussion Extremities: normal in appearance, no cyanosis, no petechiae, + generalized weakness Neuro: awake, cooperative, moves all extremities, no focal motor deficits, CN II-XII intact, sensation in extremities intact, normal speech Skin: warm, dry, no rash, normal turgor Psych: Awake, alert oriented x 3, calm today Results & Data Results & Data ([facility]) Vital Signs (Past 12 Hours) Vital Signs Temp Pulse Pulse Pulse Resp BP BP 08/20/21 19:01 36.8 C 74 20 113/67 08/20/21 17:55 36.4 C L 73 08/20/21 17:20 70 110/71 08/20/21 17:00 67 127/72 08/20/21 16:40 72 117/72 08/20/21 16:20 67 117/64 08/20/21 16:19 73 08/20/21 16:14 76 109/67 08/20/21 16:00 68 127/75 08/20/21 15:40 66 106/56 L 08/20/21 15:20 66 131/74 08/20/21 15:00 64 141/81 H 08/20/21 14:40 65 156/91 H 08/20/21 14:31 36.6 C 71 08/20/21 11:19 36.4 C L 78 18 127/84 BP Pulse Ox 08/20/21 19:01 95 08/20/21 17:55 133/75 08/20/21 17:20 08/20/21 17:00 08/20/21 16:40 08/20/21 16:20 08/20/21 16:19 08/20/21 16:14 08/20/21 16:00 08/20/21 15:40 08/20/21 15:20 08/20/21 15:00 08/20/21 14:40 08/20/21 14:31 08/20/21 11:19 96 PG Care Time/CCT Total # of Minutes Spent Total Time Spent with Patient: Total time spent is greater than 50% in coordination of care (as documented) at patient's floor/unit and/or counseling patient: Coding Level of Care Code 64804 Subseq Hosp Care Lvl 2 Diagnoses Acute respiratory failure with hypoxia J96.01 Pneumonia due to 2019-nCoV U07.1; J12.82 Vasovagal syncope R55 ESRD (end stage renal disease) on dialysis N18.6; Z99.2 Anxiety F41.9 Sinus bradycardia R00.1 Acute respiratory distress syndrome (ARDS) due to 2019 novel coronavirus U07.1; J80 Nausea R11.0 Diabetes mellitus type 2 in nonobese E11.9 Hyperparathyroidism E21.3 Hypercholesterolemia E78.00 Anemia due to chronic kidney disease N18.9; D63.1 DVT prophylaxis Z29.9 Time Spent (min) 25
[2021-08-21] MEDS: traMADol HCL 50 MG TABLET PO PRN ×2 (02:08→12:31)
[2021-08-21] MEDS: MIDODRINE HCL 10 MG TAB PO SCH (08:21)
[2021-08-21] MEDS: NEPHROCAPS PO SCH (08:21)
[2021-08-21] MEDS: INSULIN GLARGINE SOLOSTAR 100 UNITS/ML 3 ML PEN SC SCH (08:21)
[2021-08-21] MEDS: ATORVASTATIN 40 MG TAB PO SCH (08:21)
[2021-08-21] MEDS: CINACALCET HCL 30 MG TAB PO SCH (08:21)
[2021-08-21] MEDS: POLYETHYLENE (MIRALAX) 17 GM PACK PO SCH (08:21)
[2021-08-21] MEDS: VELPHORO PO SCH ×2 (08:21→11:39)
[2021-08-21] MEDS: PANTOprazole 40 MG TAB PO SCH (08:21)
[2021-08-21] MEDS: SEVELAMER HCL 800 MG TABLET PO SCH ×2 (08:21→11:39)
[2021-08-21] MEDS: HEPARIN SOD 5,000 UNIT/0.5 ML VIAL SQ SCH ×2 (08:21→13:38)
[2021-08-21] MEDS: INSULIN ASPART 100 UNITS/ML 3 ML PEN SC SCH ×2 (08:22→12:18)
[2021-08-21] MEDS: DOCUSATE SODIUM 100 MG CAP PO SCH (08:26)
--- NOTE | 2021-08-21 10:12 | Nephrology Progress Note ---
Date of Service August 21, 2021 Assessment & Plan (1) ESRD (end stage renal disease) on dialysis: Plan: HD MWF. Plan to resume outpatient Rx at [facility] under the care of Dr. Awad post discharge. EDW to be adjusted - unfortunately we don't have a great weight at this time but likely ~83 kg. Not tolerating UF well due to cramping and intradialytic hypotension. Midodrine will be continued pre-HD for hypotension. BP elevated. TID midodrine will be reduced to PRN/pre-HD. AVF functioning well. Medications appropriate for kidney function. Next anticipated HD will be Friday. (2) History of kidney transplant: (3) Chronic kidney disease-mineral and bone disorder: Plan: Sevelamer 1600 mg QAC. Remains on Sensipar 30. (4) Anemia: Plan: Epogen 62588 units with HD yesterday. Admission and Anticipated Discharge Date Admission Date: July 23, 2021 Subjective No acute events overnight. HD treatment stopped early yesterday due to cramping. BP acceptable throughout treatment. Fluid given back for symptoms before treatment stopped. Net UF at end ~500 ml. Marcos feels well this AM. Possible discharge to [facility] today. Clearance with HD acceptable. Qb at goal. AVF functioning well. Review of Systems Review of Systems: All systems reviewed & are unremarkable except as noted in HPI & below Physical Exam Constitutional: well developed; no acute distress and not ill appearing Eyes: no scleral abnormality and no corneal abnormality ENMT: Mouth: no oral mucosal abnormality and oral mucous membranes not dry Neck: normal visual inspection and trachea midline Respiratory: normal respiratory effort Auscultation: lungs clear to auscultation bilaterally Cardiovascular: Rate/Rhythm: regular rate and regular rhythm Heart Sounds: normal S1, normal S2 and + murmur Extremities: + AV fistula; no edema Musculoskeletal: Extremities: no cyanosis and no clubbing Skin: normal turgor; no lesions Neurologic: Motor/Sensory: no tremor and no asterixis Psychiatric: Orientation: alert and oriented x 3 Results & Data ([facility]) Vital Signs (Past 12 Hours) Vital Signs Temp Pulse Pulse Pulse Pulse Resp BP 08/21/21 10:02 36.9 C 72 61 84 18 173/86 H 08/21/21 08:47 74 08/21/21 07:20 36.9 C 84 18 08/21/21 03:45 36.4 C L 61 16 08/21/21 01:43 88 08/20/21 23:22 36.7 C 86 16 BP BP BP Pulse Ox 08/21/21 10:02 149/89 H 158/63 H 128/61 100 08/21/21 08:47 08/21/21 07:20 149/89 H 100 08/21/21 03:45 158/63 H 92 08/21/21 01:43 08/20/21 23:22 132/74 100 Laboratory Results Laboratory Results - last 24 hr 08/20/21 08/20/21 08/20/21 11:23 18:03 20:01 POC Glucose 78 85 89 08/21/21 07:25 POC Glucose 102 H PG Care Time/CCT Total # of Minutes Spent Total Time Spent with Patient: Total time spent is greater than 50% in coordination of care (as documented) at patient's floor/unit and/or counseling patient: Coding Level of Care Code 91698 Subseq Hosp Care Lvl 3 Diagnoses ESRD (end stage renal disease) on dialysis N18.6; Z99.2 History of kidney transplant Z94.0 Chronic kidney disease-mineral and bone disorder N18.9; E83.9; M89.9 Anemia D64.9
[2021-08-21] MEDS: ACETAMINOPHEN SUSP 325 MG/10.15 ML UDC PO PRN (11:38)
[2021-08-21] MEDS: AMPICILLIN 2,000 MG in SODIUM CHLOR 0.9% AD-VAN 100 ML IV SCH (15:53)
[2021-08-22] MEDS ORDERED: MIDODRINE HCL 10 MG TAB PO SCH (06:00)
--- NOTE | 2021-08-27 00:27 | Discharge Summary ---
Date of Service August 21, 2021 Admission HPI Per Admitting Provider Marcos Levy is a 55 year old male with end stage renal disease on dialysis who presents to the ER with shortness of breath after dialysis today. He was recently hospitalized for COVID-19 pneumonia from July 13 to 2020 (discharged 3 days ago). He reports progressive shortness of breath since discharge with increasing non-productive cough. No fever, chills, chest pain, abdominal pain, diarrhea, loss of taste or smell. In the ER CXR shows slight improvement, CRP increased to 9.27. O2 sats 94% on room air at rest but drops to the mid 80s on light exertion. CTA did not show any pulmonary embolus. He was referred to medicine for admission on ongoing management of hypoxia on exertion and COVID-19 pneumonia. Principal Diagnosis acute respiratory failure Discharge Exam General: well developed, well nourished, obese male, comfortable, no distress Neck: supple, trachea midline, normal thyroid Lungs: clear to auscultation bilaterally, normal respiratory effort, no tachypnea, no distress today Heart: regular rate, S1 and S2, no murmur, peripheral pulses normal, capillary refill normal, no edema, LUE fistula with thrill and bruit Abdomen: soft, NT, distended, + BS, no hepatomegaly, normal to percussion Extremities: normal in appearance, no cyanosis, no petechiae, + generalized weakness Neuro: awake, cooperative, moves all extremities, no focal motor deficits, CN II-XII intact, sensation in extremities intact, normal speech Skin: warm, dry, no rash, normal turgor Psych: Awake, alert oriented x 3, calm today Discharge Data Allergies Allergy/AdvReac Type Severity Reaction Status Date / Time adhesive Allergy Mild SKIN Verified 07/21/21 13:35 IRRITATION morphine AdvReac Intermediate "WACKS ME Verified 07/21/21 13:35 OUT, DO THINGS THAT CAN'T REMEMBER" aspirin AdvReac Mild NOSE BLEED Verified 07/21/21 13:35 Consultations 07/21/21 14:56 ED Decision to Admit Stat 07/23/21 10:14 Consult Nephrology Routine 07/30/21 10:14 Consult Palliative Care Routine 07/30/21 10:26 Consult Litigation Legal Secretary Routine 08/08/21 17:29 Consult Litigation Legal Secretary Routine Ordered Studies 07/21/21 13:30 CT angio chest PE protocol Stat 08/08/21 10:33 US point of care ultrasound Urgent 08/17/21 14:34 CT head/brain wo con Urgent Hospital Course (1) Acute respiratory failure with hypoxia: due to severe COVID-19 pneumonia, developed into ARDS. Pulmonary edema likely contributing, dialysis on pressors with removal of 4 L Escalating oxygen requirements prompted progression to intubation on 08/08/2021- extubated 08/11 improved with volume off loading suggesting this is from pulmonary edema from hfpef from renal failure oxygen requirement improved, he is on 4L, 95% completed 7 days of cefepime/doxy Remains on Dexamethasone, tapered to 2mg daily for a few days, stopped 08/19 As he continued to improve, will discharge. Meds below. (2) Pneumonia due to 2019-nCoV: Patient's been on dexamethasone since admission, tapering dose, stopped 08/19 was not a candidate for Remdesivir treatment crp and procal were both high - finished 7 days of Cefepime/Doxy Did not meet criteria for baricitinib (3) Vasovagal syncope: straining to have a hard stool, "went black briefly" and hit top of head against wall on 08/17 CT head - no bleed no further episodes continue Midodrine 10mg TID, it is likely that he is below dry weight, HD actually giving back saline (4) ESRD (end stage renal disease) on dialysis: increased Midodrine to 10mg TID having brief HD sessions, has issue with hypotension and light headed sensation likely below his dry weight at this time which is contributing to low BP and difficulty tolerating HD, nephrology is giving back NSS plan for next HD either tomorrow or Tuesday 08/21 (5) Anxiety: Seems to have panic attacks which negatively affect his respiratory state and status over has some encephalopathy post extubation cautious with Ativan (6) Sinus bradycardia: dropped to 40's on morning of 07/30 EKG showed sinus rhythm, no block responded to Atropine 0.5mg IV push, no further doses needed Atropine is at the bedside PRN resumed at 25mg BID on 08/01, HR in 60-70's (7) Acute respiratory distress syndrome (ARDS) due to 2019 novel coronavirus: was intubated 08/08-08/11 pulmonary medicine extubated and continues to manage stable on 2L today, he is 96%, can titrate down oxygen (8) Nausea: Did have improvement with Reglan earlier in this stay no complaints now (9) Diabetes mellitus type 2 in nonobese: controlled at this time novolog SSI lantus 8 units daily Glycemic management per pharmacy monitor for hypoglycemia, hyperglycemia, no issues (10) Hyperparathyroidism: Secondary to ESRD Continue VELPHORO (11) Hypercholesterolemia: Continue atorvastatin LFTs nl this admission (12) Anemia due to chronic kidney disease: stable (13) DVT prophylaxis: heparin TID 07/21/2021 CTA chest neg for PE PT OT consults, he is very weak from prolonged hospitalization need to work towards rehab, SNF placement he says his works at [employer] Total Time Total Time Spent Total Time Spent (In Minutes): 32 Discharge Plan Discharge Items Patient Disposition: Home - Self-Care Reason For Visit: COVID-19 PNEUMONIA, HYPOXIA Discharge Diagnosis: COVID 19 Activity: Resume your previous activity Non-emergency contact: Primary Care Provider Call non-emergency contact if: you have any medication questions Follow-up/Referrals: PCP,NO [Primary Care Provider] - Diet: Dialysis Renal Fluids: 1000ml (4 cups) Diet Texture: Easy to Chew Addtl Attending Provider Instructions: You have been hospitalized for an acute medical problem. During your stay at [facility], we have made an effort to correct the problem that brought you to the hospital while keeping you as comfortable as possible. Medications were used to bring your condition under control and your discharge instructions will include directions for any medications you should take after leaving the hospital. Please make sure you see your Primary Care Provider as part of your follow up plan. Will resume HD MWF. Plan to resume outpatient Rx at [facility] under the care of Dr. Awad post discharge. . Midodrine will be continued pre-HD for hypotension. AVF functioning well. Medications appropriate for kidney function. Next anticipated HD will be Friday. Pending Studies at Discharge: No Stand-Alone Forms: My [facility], Smoking Cessation Medications and DC Order Prescriptions: New midodrine 10 mg Tablet 10 mg PO .PREHD PRN (Reason: PREHD AND hypotension) Qty: 30 RF: 0 acetaminophen 325 mg/10.15 mL Suspension 650 mg PO Q6H PRN (Reason: fever or pain) Qty: 304.5 RF: 0 sevelamer HCl [Renagel] 800 mg Tablet 1,600 mg PO TIDM 30 Days Qty: 180 RF: 0 cinacalcet 30 mg Tablet 30 mg PO DAILY Qty: 30 RF: 0 pantoprazole 40 mg Tablet,Delayed Release (Dr/Ec) 40 mg PO Q2D Qty: 14 RF: 0 polyethylene glycol 3350 [Miralax] 17 gram Powder In Packet 17 g PO BID PRN (Reason: constipation) Qty: 30 RF: 0 tramadol 50 mg Tablet 50 mg PO Q4H PRN (Reason: severe pain (scale score 7-10)) Qty: 14 RF: 0 Continued atorvastatin [Lipitor] 40 mg tablet 40 mg PO QAM RF: 0 Nephro-Monserrat 0.8 mg tablet 1 tab PO QAM RF: 0 Discontinued sodium polystyrene sulfonate Powder 15 g PO 4XWK RF: 0 Velphoro 500 mg tablet,chewable 1,000 mg PO TIDM RF: 0 amlodipine [Norvasc] 5 mg Tablet 5 mg PO QAM 30 Days Qty: 30 RF: 3 metoprolol tartrate 50 mg Tablet 50 mg PO BID 30 Days Qty: 60 RF: 3 Discharge Orders: Discharge Order (Routine); Ordered 08/21/21 Ordered By: Raymundo Stephen Admission Data Admit Date/Time: 07/23/21 19:27 Attending Provider: Raymundo Stephen Admit Provider: Yoav Chisholm Primary Care Provider: PCP,NO Other Providers: Gian Carmen ; Yoav Chisholm ; Miesha Awad ; Dee Manzano ; Fede Christianson ; Lee Ann Lawson Other Interventions: Discharge Summary Assessment (RN) Last Done: 08/21/21 10:02 Coding Level of Care Code D/C DAY MANAGEMENT >30 MINS Diagnoses Acute respiratory failure with hypoxia J96.01 Pneumonia due to 2019-nCoV U07.1; J12.82 Vasovagal syncope R55 ESRD (end stage renal disease) on dialysis N18.6; Z99.2 Anxiety F41.9 Sinus bradycardia R00.1 Acute respiratory distress syndrome (ARDS) due to 2019 novel coronavirus U07.1; J80 Nausea R11.0 Diabetes mellitus type 2 in nonobese E11.9 Hyperparathyroidism E21.3 Hypercholesterolemia E78.00 Anemia due to chronic kidney disease N18.9; D63.1 DVT prophylaxis Z29.9
== END 2021-08-21 17:23 | DRG 208 ==
LOC: 2S 11:37 → ED 11:37 → SUATTDRO 16:16 → 2S 19:55 → 3W 07-22 10:00 → SUATTDRO 07-23 19:27 → 2E 07-25 08:51 → 2W 08-15 11:57